=== PATIENT | male | born 1950 | race Caucasian/White ===

== ENCOUNTER 2021-03-27 12:42 | Emergency (ER) | payer MEDICARE, OTHER, SELFPAY ==
--- NOTE | 2021-03-27 12:54 | ED.MALEGU ---
HPI - Male Genitourinary General Chief complaint: Urogenital-Male Stated complaint: Swollen Testicle Source: patient and RN notes reviewed Limitations: no limitations History of Present Illness HPI Narrative: The sexually active patient, elderly and on multiple meds, presents with left testicle pain. Patient states he has a shorter, 1 day history of left testicle pain that is mild, worse with activity or palpation, better with rest or elevation, and located somewhat posteriorly. No fever, lump/mass, frequency/dysuria, skin eruption, N/V, abdominal pain. Related Data Home Medications Medication Instructions Recorded Confirmed acetaminophen 500 mg PO QID PRN 03/27/21 03/27/21 albuterol sulfate [ProAir HFA] 2 puff INHALATION QID 03/27/21 03/27/21 aspirin 81 mg PO DAILY 03/27/21 03/27/21 bupropion HCl 150 mg PO QAM 03/27/21 03/27/21 cholecalciferol (vitamin D3) 125 mcg PO DAILY 03/27/21 03/27/21 cholestyramine (with sugar) 4 g PO DAILY 03/27/21 03/27/21 cilostazol 50 mg PO BID 03/27/21 03/27/21 clopidogrel 75 mg PO DAILY 03/27/21 03/27/21 cyanocobalamin (vitamin B-12) 5,000 mcg PO DAILY 03/27/21 03/27/21 denosumab [Prolia] 60 mg SUBCUT [id number] 03/27/21 03/27/21 fluticasone propionate 1 spray INTRANASAL BID 03/27/21 03/27/21 folic acid 1 mg PO DAILY 03/27/21 03/27/21 levothyroxine [Levoxyl] 175 mcg PO DAILY 03/27/21 03/27/21 lisinopril 10 mg PO DAILY 03/27/21 03/27/21 mesalamine [Asacol HD] 800 mg PO BID 03/27/21 03/27/21 pravastatin 10 mg PO HS 03/27/21 03/27/21 sildenafil [Viagra] 50 mg PO DAILY 03/27/21 03/27/21 sodium bicarbonate 650 mg PO DAILY 03/27/21 03/27/21 triamcinolone acetonide 1 applic TOPICAL BID 03/27/21 03/27/21 vit C,T-Ct-bsxij-lutein-zeaxan 1 tablet PO BID 03/27/21 03/27/21 [PreserVision AREDS-2] Allergies Allergy/AdvReac Type Severity Reaction Status Date / Time No Known Allergies Allergy Verified 03/27/21 13:58 Review of Systems Review of Systems: Narrative: General/Constitutional: No weight loss,fever Eyes: N0: Redness,discharge Ears/Nose/Throat: No: Epistaxis,ear discharge Respiratory: Denies: Hemoptysis Gastrointestinal: No Vomiting, Bleeding-rectal Skin: No Lumps, eruption Neurologic: No Focal Weakness,Sz Hematologic: Denies: Petechiae/Purpura Psychiatric: No: Suicida ideationl All Other Systems: Reviewed and Negative PMFSH Comments At time of signature, agree with nursing past medical, surgical, social and family history. There is no relevant family history pertinent to the presenting complaint Exam Narrative: Exam Narrative: General Appearance: Well appearing, No distress, Conjunctiva clear Ears: External ear normal Nose: Normal nose Mouth/Throat: Normal appearing, Normal lips Supple Respiratory: Airway patent, No respiratory distress Abdomen: Soft, Non-tender, : Nl, nonswollen descended testicles, circumcised phallus, no inguinal hernia palpated, , point tender left posterior epididymal tenderness Skin: Warm, Dry Neurological: A&O x3, CN II-X intact Psychiatric: Normal mood, Normal affect Course Vital Signs Vital signs: Vital Signs Temperature 98.7 F 03/27/21 12:56 Pulse Rate 84 03/27/21 12:56 Respiratory Rate 18 03/27/21 12:56 Blood Pressure 149/74 H 03/27/21 12:56 Pulse Oximetry 99 03/27/21 12:56 Temperature 98.7 F 03/27/21 13:18 Pulse Rate 84 03/27/21 13:18 Respiratory Rate 18 03/27/21 13:18 Blood Pressure 149/74 H 03/27/21 13:18 Pulse Oximetry 99 03/27/21 13:18 MDM - Male Genitourinary Lab Data Labs: Lab Results 03/27/21 Range/Units 13:45 C.trachomatis RNA (TMA) Pending N.gonorrhoeae RNA (TMA) Pending Urine Glucose Negative Reference Range: Negative Urine Bilirubin Negative Reference Range: Negative Urine Ketone Negative
[2021-03-27 12:56] VITALS: BP 149/74; PULSE 84; RESP 18; TEMP 37.1; O2SAT 99
[2021-03-27 13:18] VITALS: BP 149/74; PULSE 84; RESP 18; TEMP 37.1; O2SAT 99
== END 2021-03-27 14:03 | disposition home or self-care (01) ==
PROVIDERS: Emergency Provider Emergency Medicine; PCP Internal Medicine
DX: N45.1 Epididymitis (principal); E78.00 Pure hypercholesterolemia, unspecified; I10 Essential (primary) hypertension; K50.90 Crohn's disease, unspecified, without complications; Z95.5 Presence of coronary angioplasty implant and graft
CPT/HCPCS: 81003; 87086; 87491; 87591; 99203; G0463

== ENCOUNTER 2021-08-11 11:26 | Emergency (ER) | payer MEDICARE, OTHER, SELFPAY ==
[2021-08-11 12:17] VITALS: BP 141/89; PULSE 94; RESP 20; TEMP 37.1; O2SAT 99
--- NOTE | 2021-08-11 13:22 | ED.WOUNDLAC ---
HPI - Wound/Laceration General Chief Complaint: Wound/Laceration Stated Complaint: cut left elbow Time Seen by Provider: 08/11/21 13:22 Source: patient Mode of arrival: ambulatory Limitations: no limitations History of Present Illness HPI narrative: Julius Andrade is a 70 yo male with a PMH of HTN, hypothyroid,Crohns, stents, chronic and coagulation, comes to [facility] with a skin tear on his left elbow from hitting his arm on the car door at the gas station. He is on anti- coagulation was bleeding profusely Related Data Home Medications Medication Instructions Recorded Confirmed acetaminophen 500 mg PO QID PRN 03/27/21 08/11/21 albuterol sulfate [ProAir HFA] 2 puff INHALATION QID 03/27/21 08/11/21 aspirin 81 mg PO DAILY 03/27/21 08/11/21 bupropion HCl 150 mg PO QAM 03/27/21 08/11/21 cholecalciferol (vitamin D3) 125 mcg PO DAILY 03/27/21 08/11/21 cholestyramine (with sugar) 4 g PO DAILY 03/27/21 08/11/21 cilostazol 50 mg PO BID 03/27/21 08/11/21 clopidogrel 75 mg PO DAILY 03/27/21 08/11/21 cyanocobalamin (vitamin B-12) 5,000 mcg PO DAILY 03/27/21 08/11/21 denosumab [Prolia] 60 mg SUBCUT [id number] 03/27/21 08/11/21 fluticasone propionate 1 spray INTRANASAL BID 03/27/21 08/11/21 folic acid 1 mg PO DAILY 03/27/21 08/11/21 levothyroxine [Levoxyl] 175 mcg PO DAILY 03/27/21 08/11/21 lisinopril 10 mg PO DAILY 03/27/21 08/11/21 mesalamine [Asacol HD] 800 mg PO BID 03/27/21 08/11/21 pravastatin 10 mg PO HS 03/27/21 08/11/21 sildenafil [Viagra] 50 mg PO DAILY 03/27/21 08/11/21 sodium bicarbonate 650 mg PO DAILY 03/27/21 08/11/21 triamcinolone acetonide 1 applic TOPICAL BID 03/27/21 08/11/21 vit C,P-Vx-uvcbj-lutein-zeaxan 1 tablet PO BID 03/27/21 08/11/21 [PreserVision AREDS-2] Allergies Allergy/AdvReac Type Severity Reaction Status Date / Time No Known Allergies Allergy Verified 08/11/21 12:43 Review of Systems Review of Systems: CONSTITUTIONAL: Denies fever, chills, sweats. EYES: Denies visual changes, redness, discharge. ENT: Denies rhinorrhea, congestion, sore throat, otalgia. CARDIOVASCULAR: Denies chest pain, palpitations, edema. RESPIRATORY: Denies dyspnea, wheezing, cough GASTROINTESTINAL: Denies abdominal pain, nausea, vomiting, diarrhea. GENITOURINARY: Denies dysuria, hematuria, abnormal discharge SKIN: Denies rash or itching. NEUROLOGIC: Denies numbness, or focal weakness. PSYCHIATRIC: Denies anxiety or depression. Bleeding from left elbow PMFSH Past Medical History Medical History Chronic anticoagulation Crohn's disease High cholesterol Hypertension Surgical History Surgical History H/O heart artery stent Social History Social History (Updated 08/11/21 @ 13:30 by Sienna De Jesus CNP) Smoking status: Never smoker Alcohol intake: never Comments At time of signature, I agree with nursing past medical, surgical, social and family history. There is no relevant family history pertinent to the presenting complaint. Exam Narrative: GENERAL: This is a well-nourished, well-developed patient, in mild distress. HEAD: normocephalic, atraumatic. EYES: Sclera clear/white. Vision is grossly intact. EARS: External ears normal, . Hearing grossly intact. NOSE: External nose normal without nasal discharge, nares without redness, no rhinorrhea. THROAT: Mucous membranes moist, NECK: Neck supple, CARDIOVASCULAR: Regular rate and rhythm without murmurs, gallops, or rubs. RESPIRATORY: Clear to auscultation. Breath sounds equal bilaterally. No wheezes, rales, or rhonchi. GASTROINTESTINAL: Abdomen soft, er, SKIN: warm, intact with skin tear to left elbow of 2.4 area that scrolled back and is bleeding NEURO: awake, alert, and oriented to person, place and time. There were no obvious focal neurologic abnormalities. Steady gait EXTREMITIES: Normal range of motion. BACK: Nontender without deformity
== END 2021-08-11 13:25 | disposition home or self-care (01) ==
PROVIDERS: Emergency Provider Nurse Practitioner
DX: S51.012A Laceration without foreign body of left elbow, initial encounter (principal); W22.8XXA Striking against or struck by other objects, initial encounter; K50.90 Crohn's disease, unspecified, without complications; E78.00 Pure hypercholesterolemia, unspecified; I10 Essential (primary) hypertension; Z95.5 Presence of coronary angioplasty implant and graft
CPT/HCPCS: 99212; G0463

== ENCOUNTER 2021-11-15 17:01 | Emergency (ER) | payer MEDICARE, OTHER, SELFPAY ==
--- NOTE | ~2021-11-15 | XR_ITS ---
EXAMINATION: XR chest 1V portable DATE: 11/15/2021 20:54 INDICATION: Hypertension. Fall. TECHNIQUE: A single frontal view of the chest was obtained. COMPARISON: None. FINDINGS: The chest demonstrates clear lungs without pneumonia, pleural effusion, or pneumothorax. Th e heart size is normal. IMPRESSION: 1. No acute cardiopulmonary disease. Reviewed, dictated and finalized at location A. CARPENTER
--- NOTE | ~2021-11-15 | XR_ITS ---
EXAMINATION: 1. XR wrist LT min 3V 2. XR hand LT min 3V DATE: 11/15/2021 20:28 INDICATION: Left wrist injury and pain. TECHNIQUE: 5 views of left wrist and 3 views of left hand were obtained. COMPARISON: None. FINDINGS: LEFT WRIST: Scapholunate dissociation is noted. There is dorsal tilt of lunate, consistent with dors al intercalated segmental instability (DISI). There is severe osteoarthritis of triscaphe joint and f irst carpometacarpal joint. There are loose bodies in the wrist. LEFT HAND: Again seen is scapholunate dissociation and dorsal tilt of lunate. There is a swan-neck de formity of fourth digit. No fracture. There is mild osteoarthritis of first and third metacarpophalan geal joints. There is mild to moderate osteoarthritis of most of the interphalangeal joints. There ar e periarticular calcifications at most of the metacarpophalangeal joints. IMPRESSION: 1. Polyarticular osteoarthritis. 2. Loose bodies in the wrist. 3. Scapholunate dissociation. 4. DISI. Reviewed, dictated and finalized at location A. UCT TEST ENGINEER IMPRESSION: 1. Polyarticular osteoarthritis. 2. Loose bodies in the wrist. 3. Scapholunate dissociation. 4. DISI.
--- NOTE | ~2021-11-15 | CT_ITS ---
EXAMINATION: CT brain wo con DATE: 11/15/2021 20:22 INDICATION: Head injury. TECHNIQUE: Computed tomography (CT) of the head was performed without intravenous contrast. The mA wa s adjusted according to patient size. Iterative reconstruction technique was employed. The dose-lengt h product was 605.33 mGy-cm. COMPARISON: None FINDINGS: There is no intracranial hemorrhage, acute infarction, or abnormal intracranial mass lesion . There are scattered areas of low attenuation in the cerebral white matter. The ventricles are taj l in size. There are likely changes of ocular lens replacement surgeries. There is mild mucosal thick ening in the ethmoid sinuses. There is a small right mastoid effusion. IMPRESSION: 1. Extensive nonspecific cerebral white matter disease, which likely represents chronic small vessel ischemic disease. Reviewed, dictated and finalized at location A. CARE AIDE TEACHER
--- NOTE | ~2021-11-15 | CT_ITS ---
EXAMINATION: CT cervical spine wo con DATE: 11/15/2021 20:22 INDICATION: Head injury. TECHNIQUE: Computed tomography (CT) of the cervical spine was performed without intravenous contrast. Automated exposure control and iterative reconstruction technique were employed. The dose-length pro duct was 178.55 mGy-cm. COMPARISON: None FINDINGS: There is mild emphysema. 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 There is 16 degr ees dextroscoliosis of cervical spine. There is 3 mm anterolisthesis of C4 on C5 and 5 mm anterolisth esis of C5 on C6. Vertebral body heights are normal. There is mildly decreased disc height at C3-C4 a nd C4-C5 and moderately decreased disc height at C5-C6. The following disc levels are specifically di scussed: C2-C3: There is moderate right uncovertebral joint osteoarthritis. There is severe bilateral facet minal int osteoarthritis. There is mild bilateral neural foraminal stenosis. There is mild central canal st enosis. C3-C4: There is severe left uncovertebral joint osteoarthritis. There is severe bilateral facet joint osteoarthritis. There is mild bilateral neural foraminal stenosis. There is no central canal stenosi s. C4-C5: There is mild left uncovertebral joint osteoarthritis. There is mild right and severe left fac et joint osteoarthritis. There is moderate left neural foraminal stenosis. There is no central canal stenosis. C5-C6: There is no uncovertebral joint osteoarthritis. There is severe bilateral facet joint osteoart hritis. There is moderate bilateral neural foraminal stenosis. There is mild central canal stenosis. C6-C7: There is no uncovertebral joint osteoarthritis. There is severe bilateral facet joint osteoart hritis. There is mild left neural foraminal stenosis. There is no central canal stenosis. C7-T1: There is no uncovertebral joint osteoarthritis. There is severe bilateral facet joint osteoart hritis. There is mild bilateral neural foraminal stenosis. There is no central canal stenosis. IMPRESSION: 1. No fracture. 2. Moderate cervical spondylosis. 3. Cervical dextroscoliosis. Reviewed, dictated and finalized at location A. MACHINE OPERATOR
[2021-11-15 17:33] VITALS: BP 166/79; PULSE 81; RESP 16; TEMP 37; O2SAT 99
[2021-11-15 21:16] VITALS: BP 148/89; PULSE 72; RESP 20; O2SAT 99
--- NOTE | 2021-11-15 21:34 | ED.FALL ---
HPI - Fall General Chief Complaint: Fall Stated Complaint: fall Time Seen by Provider: 11/15/21 20:57 Source: patient and RN notes reviewed Mode of arrival: EMS Limitations: no limitations History of Present Illness HPI Narrative: This is a 70 year old male who presents for evaluation after a fall. Patient states he accidentally tripped over a cord at home, and he fell hitting his head. He denies having LOC or headache. He takes aspirin and plavix. He denies neck pain, chest pain, dizziness, nausea, vomiting or hand or wrist pain. He is unsure of his last tetanus. Related Data Home Medications Medication Instructions Recorded Confirmed acetaminophen 500 mg PO QID PRN 03/27/21 08/11/21 albuterol sulfate [ProAir HFA] 2 puff INHALATION QID 03/27/21 08/11/21 aspirin 81 mg PO DAILY 03/27/21 08/11/21 bupropion HCl 150 mg PO QAM 03/27/21 08/11/21 cholecalciferol (vitamin D3) 125 mcg PO DAILY 03/27/21 08/11/21 cholestyramine (with sugar) 4 g PO DAILY 03/27/21 08/11/21 cilostazol 50 mg PO BID 03/27/21 08/11/21 clopidogrel 75 mg PO DAILY 03/27/21 08/11/21 cyanocobalamin (vitamin B-12) 5,000 mcg PO DAILY 03/27/21 08/11/21 denosumab [Prolia] 60 mg SUBCUT [id number] 03/27/21 08/11/21 fluticasone propionate 1 spray INTRANASAL BID 03/27/21 08/11/21 folic acid 1 mg PO DAILY 03/27/21 08/11/21 levothyroxine [Levoxyl] 175 mcg PO DAILY 03/27/21 08/11/21 lisinopril 10 mg PO DAILY 03/27/21 08/11/21 mesalamine [Asacol HD] 800 mg PO BID 03/27/21 08/11/21 pravastatin 10 mg PO HS 03/27/21 08/11/21 sildenafil [Viagra] 50 mg PO DAILY 03/27/21 08/11/21 sodium bicarbonate 650 mg PO DAILY 03/27/21 08/11/21 triamcinolone acetonide 1 applic TOPICAL BID 03/27/21 08/11/21 vit C,J-Ml-nfmjw-lutein-zeaxan 1 tablet PO BID 03/27/21 08/11/21 [PreserVision AREDS-2] Allergies Allergy/AdvReac Type Severity Reaction Status Date / Time No Known Allergies Allergy Verified 11/15/21 21:19 Review of Systems Review of Systems: All systems reviewed & are unremarkable except as noted in HPI and below PMFSH Past Medical History Medical History Chronic anticoagulation Crohn's disease High cholesterol Hypertension Surgical History Surgical History H/O heart artery stent Social History Social History (Updated 08/11/21 @ 13:30 by Sienna De Jesus CNP) Smoking status: Never smoker Alcohol intake: never Exam Const: General: no acute distress and alert Orientation/consciousness: patient oriented x3 HENMT: Head: normocephalic and other (superficial linear vertical laceration mid forehead) General nose exam: Normal external nose present Face and sinus: face symmetric Mouth: Yes lip normal and Yes moist mucous membranes Eyes: EOM: EOMs intact bilaterally Chest: Chest palpation & inspection: normal inspection of the chest and no tenderness Resp: Effort & Inspection: normal respiratory effort Auscultation: clear to auscultation bilaterally Cardio: Rate: regular rate Rhythm: regular rhythm Heart sounds: no murmurs GI: GI Palp: Yes Soft to palpation, No Tenderness to palpation present (GI) and No Guarding due to palpation present (GI) Auscultation: normal bowel sounds Neuro: General: patient oriented x3, moves all extremities and CN's II-XI intact bilaterally Gait exam (Neuro): Normal gait present Extrem: Other: left hand no bruising or swelling, no tenderness Psych: Mental Status: mental status grossly normal Affect: normal affect Course Reevaluation(s) Reevaluation #1: I reviewed with patient xray findings. no fracture but has significant arthritis and scapholunate disocciation. he is not having any pain. Date: 11/15/21 Time: 22:06 Vital Signs Vital signs: Vital Signs Temperature 98.6 F 11/15/21 17:33 Pulse Rate 81 11/15/21 17:33 Respiratory Rate 16 11/15/21 17:33 Blood Pressure 166/79 H 11/15/21 17:33 P
[2021-11-15 22:53] VITALS: BP 152/81; PULSE 75; RESP 20; O2SAT 98
[2021-11-15] MEDS: TETANUS,DIPHTHERIA,AC PERTUSSIS ADULT (0.5 ML) BOOSTRIX IM (23:07)
== END 2021-11-15 23:36 | disposition home or self-care (01) ==
PROVIDERS: Emergency Provider General Practice; PCP Internal Medicine
DX: S01.81XA Laceration without foreign body of other part of head, initial encounter (principal); M19.032 Primary osteoarthritis, left wrist; M25.332 Other instability, left wrist; I10 Essential (primary) hypertension; E78.5 Hyperlipidemia, unspecified; K50.90 Crohn's disease, unspecified, without complications; W01.0XXA Fall on same level from slipping, tripping and stumbling without subsequent striking against object, initial encounter; Z23 Encounter for immunization
CPT/HCPCS: 12013; 70450; 71045; 72125; 73110; 73130; 90471; 90715; 99284

== ENCOUNTER 2023-02-03 17:41 | Emergency (ER) | payer MEDICARE, OTHER, SELFPAY ==
--- NOTE | ~2023-02-03 | XR_ITS ---
EXAM: XR foot RT min 3V DATE: 02/03/2023 18:05 HISTORY: injury, CUT BETWEEN 4TH AND 5TH DIGIT . COMPARISON: None. FINDINGS: Decreased mineralization. Tiny ossific density fragment adjacent to the proximal and later al aspect of the proximal right fourth phalange. No lytic or blastic lesion. Scattered degenerative c hanges. Toes are held in flexion which somewhat limits evaluation. No erosion or periosteal change. V ascular calcifications. IMPRESSION: Tiny ossific density fragment adjacent to the proximal and lateral aspect of the proximal right fourth phalange, may represent a small bone fragment or soft tissue debris. Reviewed, dictated and finalized at location K. IMPRESSION: Tiny ossific density fragment adjacent to the proximal and lateral aspect of the proximal right fourth phalange, may represent a small bone fragme nt or soft tissue debris.
[2023-02-03 17:43] VITALS: BP 150/82; PULSE 88; RESP 15; TEMP 37.2; O2SAT 98
--- NOTE | 2023-02-03 19:05 | ED.LOWEXIN ---
HPI - Extremity Injury (Lower) General Chief Complaint: Extremity Injury, Lower <Linn Tubbs PA-C - Last Filed: 02/04/23 02:26> Stated Complaint: right foot injury <Linn Tubbs PA-C - Last Filed: 02/04/23 02:26> Time Seen by Provider: 02/03/23 18:51 <Linn Tubbs PA-C - Last Filed: 02/04/23 02:26> History of Present Illness HPI Narrative: 72-year-old male reports for evaluation of a right foot injury after shower door fell patient's right foot 2 hours prior to arrival while he was getting out of the bathtub. Pt reporting pain to his R 4th toe with overlying abrasion/laceration. Patient is able to ambulate. He is not sure when his last tetanus shot was. <Linn Tubbs PA-C - Last Filed: 02/04/23 02:26> Related Data Home Medications: Home Medications Medication Instructions Recorded Confirmed acetaminophen 500 mg tablet 500 mg PO QID PRN Pain 03/27/21 08/11/21 albuterol sulfate 90 mcg/actuation 2 puff inhalation QID 03/27/21 08/11/21 aerosol inhaler (ProAir HFA) aspirin 81 mg tablet 81 mg PO DAILY 03/27/21 08/11/21 bupropion HCl 150 mg 24 hr tablet, 150 mg PO QAM 03/27/21 08/11/21 extended release cholecalciferol (vitamin D3) 125 125 mcg PO DAILY 03/27/21 08/11/21 mcg (5,000 unit) tablet cholestyramine (with sugar) 4 gram 4 g PO DAILY 03/27/21 08/11/21 oral powder cilostazol 50 mg tablet 50 mg PO BID 03/27/21 08/11/21 clopidogrel 75 mg tablet 75 mg PO DAILY 03/27/21 08/11/21 cyanocobalamin (vitamin B-12) 5,000 mcg PO DAILY 03/27/21 08/11/21 5,000 mcg disintegrating tablet denosumab 60 mg/mL subcutaneous 60 mg subcut [id number] 03/27/21 08/11/21 syringe (Prolia) fluticasone propionate 50 1 spray intranasal BID 03/27/21 08/11/21 mcg/actuation nasal spray,suspension folic acid 1 mg tablet 1 mg PO DAILY 03/27/21 08/11/21 levothyroxine 175 mcg tablet 175 mcg PO DAILY 03/27/21 08/11/21 (Levoxyl) lisinopril 10 mg tablet 10 mg PO DAILY 03/27/21 08/11/21 mesalamine 800 mg tablet,delayed 800 mg PO BID 03/27/21 08/11/21 release (Asacol HD) pravastatin 10 mg tablet 10 mg PO HS 03/27/21 08/11/21 sildenafil 50 mg tablet (Viagra) 50 mg PO DAILY 03/27/21 08/11/21 sodium bicarbonate 650 mg tablet 650 mg PO DAILY 03/27/21 08/11/21 triamcinolone acetonide 0.1 % 1 applic topical BID 03/27/21 08/11/21 topical cream vit C 250 mg-vit E 90 mg-zinc 40 1 tablet PO BID 03/27/21 08/11/21 mg-copper 1 [id number] capsule (PreserVision AREDS-2) <Linn Tubbs PA-C - Last Filed: 02/04/23 02:26> Allergies/Adverse Reactions: Allergies Allergy/AdvReac Type Severity Reaction Status Date / Time No Known Allergies Allergy Verified 11/15/21 21:19 <Linn Tubbs PA-C - Last Filed: 02/04/23 02:26> Review of Systems Review of Systems: CONSTITUTIONAL: Denies fever, chills EYES: Denies visual changes, redness, or discharge. ENT: Denies rhinorrhea, congestion, sore throat, or otalgia. CARDIOVASCULAR: Denies chest pain, palpitations, or edema. RESPIRATORY: Denies cough or dyspnea. GASTROINTESTINAL: Denies abdominal pain, nausea, vomiting, or diarrhea. GENITOURINARY: Denies dysuria or hematuria. SKIN: Denies rash or itching. MUSCULOSKELETAL: See HPI NEUROLOGIC: Denies headache, numbness, dizziness, or weakness. PSYCHIATRIC: Denies anxiety or depression. <Linn Tubbs PA-C - Last Filed: 02/04/23 02:26> PMFSH Past Medical History Medical History: Medical History Chronic anticoagulation Crohn's disease High cholesterol Hypertension <Linn Tubbs PA-C - Last Filed: 02/04/23 02:26> Surgical History Surgical History: Surgical History H/O heart artery stent <Linn Tubbs PA-C - Last Filed: 02/04/23 02:26> Social History Social History: Social History (Reviewed 02/03/23 @ 19:07 by Linn Tubbs
[2023-02-03] MEDS: NEOMYCIN/POLYMYXIN/BACITRACIN OINTMENT PACKET 1 PACKET TOPICAL (19:24)
[2023-02-03] MEDS: TETANUS,DIPHTHERIA,AC PERTUSSIS ADULT (0.5 ML) BOOSTRIX IM (19:24)
[2023-02-03] MEDS: ACETAMINOPHEN 325 MG TABLET 650 MG PO (19:24)
== END 2023-02-03 20:32 | disposition home or self-care (01) ==
PROVIDERS: Emergency Provider Physician Assistant; PCP Internal Medicine
DX: S92.514B Nondisplaced fracture of proximal phalanx of right lesser toe(s), initial encounter for open fracture (principal); Z23 Encounter for immunization; E78.00 Pure hypercholesterolemia, unspecified; I10 Essential (primary) hypertension; K50.90 Crohn's disease, unspecified, without complications; Z95.5 Presence of coronary angioplasty implant and graft; Z79.82 Long term (current) use of aspirin; W20.8XXA Other cause of strike by thrown, projected or falling object, initial encounter
CPT/HCPCS: 12001; 73630; 90471; 90715; 99283; 99284; A9270

== ENCOUNTER 2023-07-28 10:05 | Emergency (ER) | payer MEDICARE, OTHER, SELFPAY ==
[2023-07-28 10:15] VITALS: BP 157/72; PULSE 90; RESP 20; TEMP 37.2; O2SAT 98
--- NOTE | 2023-07-28 10:25 | ED.GENADULT ---
HPI - General Adult General Chief complaint: Back Pain/Injury Stated complaint: Left Shoulder Pain Time Seen by Provider: 07/28/23 10:28 Source: patient, RN notes reviewed and old records reviewed Mode of arrival: ambulatory Limitations: no limitations History of Present Illness HPI narrative: 72 year old male presents to [facility] care with complaints of left posterior upper scapular painful area which he noted last night. He also had raised firm nodule to his left hand near his thumb which is 1cm diameter and fibrous feeling, patient has some deformity of his fingers from polyarticular osteoarthritis noted on previous x-rays. Patient reports that he has no complaints of recent fall or any injury to his left posterior upper back region, has full ROM noted of his left shoulder without pain. On palpation of left scapular area soft tissue nodule noted to left scapula which is tender to palpation, not mobile and without any redness or inflammation to area. MD complaint: pain to left sapular area,firm nodule on left hand near thumb Onset (ago): day(s) (1) Location: back (left scapular area, left hand) Radiation: non-radiation Severity: moderate Treatments prior to arrival: none Related Data Home Medications Medication Instructions Recorded Confirmed acetaminophen 500 mg tablet 500 mg PO QID PRN Pain 03/27/21 07/28/23 albuterol sulfate 90 mcg/actuation 2 puff inhalation QID 03/27/21 07/28/23 aerosol inhaler (ProAir HFA) aspirin 81 mg tablet 81 mg PO DAILY 03/27/21 07/28/23 bupropion HCl 150 mg 24 hr tablet, 150 mg PO QAM 03/27/21 07/28/23 extended release cholecalciferol (vitamin D3) 125 125 mcg PO DAILY 03/27/21 07/28/23 mcg (5,000 unit) tablet cholestyramine (with sugar) 4 gram 4 g PO DAILY 03/27/21 07/28/23 oral powder cilostazol 50 mg tablet 50 mg PO BID 03/27/21 07/28/23 clopidogrel 75 mg tablet 75 mg PO DAILY 03/27/21 07/28/23 cyanocobalamin (vitamin B-12) 5,000 mcg PO DAILY 03/27/21 07/28/23 5,000 mcg disintegrating tablet denosumab 60 mg/mL subcutaneous 60 mg subcut [id number] 03/27/21 07/28/23 syringe (Prolia) fluticasone propionate 50 1 spray intranasal BID 03/27/21 07/28/23 mcg/actuation nasal spray,suspension folic acid 1 mg tablet 1 mg PO DAILY 03/27/21 07/28/23 levothyroxine 175 mcg tablet 175 mcg PO DAILY 03/27/21 07/28/23 (Levoxyl) mesalamine 800 mg tablet,delayed 800 mg PO BID 03/27/21 07/28/23 release (Asacol HD) pravastatin 10 mg tablet 10 mg PO HS 03/27/21 07/28/23 sildenafil 50 mg tablet (Viagra) 50 mg PO DAILY 03/27/21 07/28/23 sodium bicarbonate 650 mg tablet 650 mg PO DAILY 03/27/21 07/28/23 triamcinolone acetonide 0.1 % 1 applic topical BID 03/27/21 07/28/23 topical cream vit C 250 mg-vit E 90 mg-zinc 40 1 tablet PO BID 03/27/21 07/28/23 mg-copper 1 [id number] capsule (PreserVision AREDS-2) carvedilol 3.125 mg tablet mg 07/28/23 pantoprazole 20 mg tablet,delayed mg PO 07/28/23 release Allergies Allergy/AdvReac Type Severity Reaction Status Date / Time No Known Allergies Allergy Verified 07/28/23 10:08 Review of Systems Review of Systems: CONSTITUTIONAL: Denies fever, chills, or sweats. EYES: Denies visual changes, redness, or discharge. ENT: Denies rhinorrhea, congestion, sore throat, or otalgia. CARDIOVASCULAR: Denies chest pain, palpitations, or edema. RESPIRATORY: Denies cough or dyspnea. GASTROINTESTINAL: Denies abdominal pain, nausea, vomiting, or diarrhea. GENITOURINARY: Denies dysuria or hematuria. SKIN: Denies rash or itching. MUSCULOSKELETAL: Denies back pain, joint pain, or myalgia reports painful area to his posterior left scapular region. and nodular area to his left hand near thumb NEUROLOGIC: Denies headache, numbness, or weakness. PSYCHIATRIC: Denies anxiety or depression. All systems reviewed & are unremarkable except as noted in HPI and below PMFSH Past Medical History Medical History (Updated 07/30/23 @ 08:15 by Ronna Vela NP)
== END 2023-07-28 11:08 | disposition home or self-care (01) ==
PROVIDERS: Emergency Provider Registered Nurse; PCP Internal Medicine
DX: R22.32 Localized swelling, mass and lump, left upper limb (principal); M54.9 Dorsalgia, unspecified; I10 Essential (primary) hypertension; E78.00 Pure hypercholesterolemia, unspecified; Z79.82 Long term (current) use of aspirin; K50.90 Crohn's disease, unspecified, without complications
CPT/HCPCS: 99213; G0463

== ENCOUNTER 2024-05-29 13:31 | Outpatient (CLI) | payer MEDICARE, OTHER, SELFPAY ==
--- NOTE | ~2024-05-29 | XR_ITS ---
EXAMINATION: [id number] DATE: 05/29/2024 13:49 INDICATION: Pleurodynia. TECHNIQUE: A frontal view of the chest and 2 views on 3 radiographs of the right ribs were obtained. COMPARISON: Chest single view 11/15/2021 FINDINGS: There is no pneumonia, pleural effusion, or pneumothorax. The heart size is normal. IMPRESSION: 1. No rib fracture. Reviewed, dictated and finalized at location A. IMPRESSION: 1. No rib fracture.
== END 2024-05-29 13:32 ==
PROVIDERS: PCP Internal Medicine; Visit Provider Internal Medicine
DX: R07.81 Pleurodynia (principal)
CPT/HCPCS: 71101

== ENCOUNTER 2024-10-20 08:46 | Outpatient (CLI) | payer MEDICARE, OTHER, SELFPAY ==
--- NOTE | ~2024-10-20 | XR_ITS ---
HISTORY: PAIN IN RT HIP COMPARISON: TECHNIQUE: 2 views of the right hip without an AP view of the pelvis FINDINGS: No acute fracture or dislocation is identified. Superior lateral sclerosis of the femoral acetabular joint space is present consistent with severe os teoarthritis. Cortical irregularity of the right femoral neck without a discrete fracture deformity. Diffuse bony demineralization. Calcified atherosclerotic disease. IMPRESSION: Severe degenerative disease, without acute displaced fracture deformity for which cross-sectional shawn ging (noncontrast enhanced CT examination of the right hip versus MRI) is suggested for further evalu ation, if the patient is clinically able. Reviewed, dictated and finalized at location A. COPTER ENGINEER IMPRESSION: Severe degenerative disease, without acute displaced fracture deformity for whi ch cross-sectional imaging (noncontrast enhanced CT examination of the right hi p versus MRI) is suggested for further evaluation, if the patient is clinically able.
--- OUTSIDE RECORDS SUMMARY | 2024-10-27 10:45 | XMS_ITS ---
Author Name [facility] [place] [facility] [place] [facility] [place] Address [address] [place] [address] Support Name Relationship Address Phone MAYRA JON Next of Kin [address] [place] [address] MAYRA JON Emergency Contact [address] [place] [address] ALONDRACHAMP BRANDY Next of Kin Unknown Selected Encounter This section includes the information on record at [place] for the Encounter. Date/Time Encounter Type Encounter Description Reason Pro vider Source May 29, 2024 12:01 PM Outpatient Encounter ADMIN PAT ACTIVTIES (MASNONCT) IHE Encounter Template Text not used by [facility] Encounter Notes: All associated encounter notes This section contains the clinical notes associated to the Encounter. Date/Time Encounter Note(s) Provider Source Jun 01, 2024 08:50 AM ADDENDUM: LOCAL TITLE: Addendum STANDARD TITLE: ADDENDUM DATE OF NOTE: JUN 01, 2024@08:50:33 ENTRY DATE: JUN 01, 2024@08:50:35 AUTHOR: ROBER MCBRIDEIGNER: URGENCY: STATUS: COMPLETED Per chart review [facility] is not enrolled at this [place]. [facility] will need to direct inquiry to VA provider once enrolled and completing scheduled appointment. Alerting original point of contact as there has been no other contact with this [facility]. /santosh/ TIFFANIE Colon, SOLDERING TECHNICIAN Clinical General Dentist/Owner Signed: 06/01/2024 08:52 Receipt Acknowledged By: 06/04/2024 08:30 /santosh/ ATUL CARBAJAL AMSA --- Original Document --- 05/29/24 CCC: SCHEDULING ADMINISTRATION: Patient Demographics Patient Name: RACHELE ROSADO Patient Primary Phone: [phone] Patient Primary Address: [address] [place] [address] Patient : 1950 Patient Age: 73 Caller/Recipient Relation to Patient: Self Administrative Administrative Note Comments: allowed his non Adrián speak on his behalf today on 05/29/2024. Adrián states that he would like someone to give a call regarding some in home care for the . Please call Adrián at [phone]. /es/ ATUL BRITO AMSA Signed: 05/29/2024 11:01 AMITA MCBRIDE [facility] May 29, 2024 11:01 AM ADMINISTRATIVE NOT E: LOCAL TITLE: CCC: SCHEDULING ADMINISTRATION STANDARD TITLE: ADMINISTRATIVE NOTE DATE OF NOTE: MAY 29, 2024@11:01:49 ENTRY DATE: MAY 29, 2024@11:01:49 AUTHOR: ATUL SINGH EXP COSIGNER: URGENCY: STATUS: COMPLETED CCC: SCHEDULING ADMINISTRATION Has ADDENDA Patient Demographics Patient Name: RACHELE ROSADO Patient Primary Phone: [phone] Patient Primary [address]: [address] [place] [id number] Patient : 1950 Patient Age: 73 Caller/Recipient Relation to Patient: Self Administrative Administrative Note Comments: [facility] allowed his non Adrián speak on his behalf today on 05/29/2024. Adrián states that he would like someone to give a call regarding some in home care for the . Please call Adrián at [phone]. /es/ ATUL BRITO AMSA Signed: 05/29/2024 11:01 06/01/2024 ADDENDUM STATUS: COMPLETED Per chart review [facility] is not enrolled at this [place]. [facility] will need to direct inquiry to VA provider once enrolled and completing scheduled appointment. Alerting original point of contact as there has been no other contact with this [facility]. /santosh/ TIFFANIE Colon, SOLDERING TECHNICIAN Clinical General Dentist/Owner Signed: 06/01/2024 08:52 Receipt Acknowledged By: * AWAITING SIGNATURE * ATUL SINGH LAKEYSHA RENEE MARION [facility]
--- OUTSIDE RECORDS SUMMARY | 2024-10-27 10:45 | XMS_ITS | Encounter Summary ---
Author Name [facility] [place] [facility] [facility] [place] Address [address] [place] [address] Support Name Relationship Address Phone MAYRA JON Next of Kin [address] [place], [place] [phone] MAYRA JON Emergency Contact [address] [place], [place] [phone] ALONDRACHAMP BRANDY Next of Kin Unknown Selected Encounter This section includes the information on record at [place] for the Encounter. Date/Time Encounter Type Encounter Description Reason Pro vider Source Sep 10, 2024 05:33 PM Outpatient Encounter ADMIN PAT ACTIVTIES (MASNONCT) IHE Encounter Template Text not used by [place] Social History: Smoking Status (Most current) and Tobacco Use (All prior to encounter date) This section includes the most current, and the historical, smoking and tobacco- related health factors from the [place] facility where the Encounter took place. Current Smoking Status This section includes the most current smoking, or tobacco-related health factor, from the [place] facility where the Encounter took place. Date/Time Current Smoking Status Comment Mendy perez Apr 08, 2015 01:01 PM CURRENT TOBACCO USER [facility] Tobacco Use History This section includes a history of the smoking, or tobacco-related health factors, that were collected on or before the date of the Encounter. The data comes from the [place] facility where the Encounter took place. Date/Time Smoking Status/Tobacco Use Comment Kay munguia Apr 08, 2015 01:01 PM TOBACCO MEDS OFFER ED BUT DECLINED [facility] Encounter Notes: All associated encounter notes This section contains the clinical notes associated to the Encounter. Date/Time Encounter Note(s) Provider Source Sep 10, 2024 05:33 PM ADMINISTRATIVE NOT E: LOCAL TITLE: SCHEDULING NOTE [facility] STANDARD TITLE: ADMINISTRATIVE NOTE DATE OF NOTE: SEP 10, 2024@17:33 ENTRY DATE: SEP 10, 2024@17:33:59 AUTHOR: KRISTOPHER MILLERIGNER: URGENCY: STATUS: COMPLETED Additional comments: Called to offer PCP appt. Contact Letter Sent ADDITIONAL RESULTS FROM SCHEDULING ATTEMPTS: /santosh/ KRISTOPHER MILLER Advanced Production Recorder, PTSD DIANNA 58 Signed: 09/10/2024 17:34 KRISTOPHER MILLER [facility] Sep 10, 2024 05:33 PM PRIMARY CARE CALLUM RS: LOCAL TITLE: PC NEW PATIENT NO CONTACT LETTER STL STANDARD TITLE: PRIMARY CARE LETTERS DATE OF NOTE: SEP 10, 2024@17:33 ENTRY DATE: SEP 10, 2024@17:33:16 AUTHOR: KRISTOPHER MILLERIGNER: URGENCY: STATUS: COMPLETED [facility] [address] [place] [address] SEP 10, 2024 JULIUS [address]RADE [address] [place] [address] Dear Julius Andrade, Thank you for your interest in establishing care with a Primary Care Provider at the [facility]. Your Primary Care Provider is the clinical leader of your Patient Aligned Care Team (PACT). Your PACT Team manages and coordinates your comprehensive health care services. Primary Care includes, but is not limited to: diagnosis and management of acute and chronic health conditions, health promotion, disease prevention, overall care management, post-deployment care, and patient and caregiver education. If you would like more information, please visit [email or web address]. We have been unsuccessful in our attempts to contact you to schedule your initial appointment. Based on your current residence, the clinic recommended for your primary care needs is: [facility] [address] [place] [address] We are happy to accommodate your request with another clinic, if needed. Please call to schedule your initial appointment. Thank you for your service, and we look forward to hearing from you. Sincerely, KRISTOPHER MILLER Advanced Production Recorder, PTSD DINANA 58 ASHLEE,JULIUS MILLER,KRISTOPHER Romero [facility]
--- OUTSIDE RECORDS SUMMARY | 2024-10-27 10:45 | XMS_ITS | Continuity of Care Document ---
Author Name [facility] Organization [facility] Care Team Providers Care Renal Dialysis Rn Name Role Phone [facility] Unavailable Unavailable Problems Combined list of problems from Department [facility] and [facility] facilities. It does not include entries that were removed or entered in error. Problem Status Onset Date Problem Type Date of Resolution Comments Source Chronic obstructive lung disease Active Condition [facility] Crohn's disease Active Condition [facility] Essential hypertension Active Condition [facility] Hyperlipidemia Active Condition . [facility] Underweight Active Condition [facility] Medications Combined list of outpatient medications from Department [facility] and [facility] facilities.Medications provided include 1) outpatient medications from the last 15 months, and 2) patient-reported medications. Medication Details Route Status Patient Instructions Prescription Expires Prescription Number Last Dispense Date Ordering Provider Order Date Order Qty Source BUPROPION XL (bupropion HCl), 150 MG, TAB ER 24H, ORAL, LUPIN PHARMACEU, 90 ea. BOTTLE Active [id number] 4 2023 90 Pharmac y Data Transac tion Service Facilit y BUPROPION XL (bupropion HCl), 150 MG, TAB ER 24H, ORAL, LUPIN PHARMACEU, 90 ea. BOTTLE Active [id number] 2023 90 Pharmac y Data Transac tion Service Facilit y CARVEDILOL (CARVEDILOL ), 3.125MG, TABLET, ORAL, GLENMARK PHARMA, 500 ea. BOTTLE Active [id number] 4 2023 180 Pharmac y Data Transac tion Service Facilit y CARVEDILOL (CARVEDILOL ), 3.125MG, TABLET, ORAL, GLENMARK PHARMA, 500 ea. BOTTLE Active [id number] 2023 180 Pharmac y Data Transac tion Service Facilit y CHOLESTYRAM INE (cholestyra mine (with sugar)), 4 G, POWDER, ORAL, [employer], 378 g CAN Active [id number] 4 2023 378 Pharmac y Data Transac tion Service Facilit y CHOLESTYRAM INE (cholestyra mine (with sugar)), 4 G, POWDER, ORAL, [employer], 378 g CAN Cancele d [id number] : 2023 0 Pharmac y Data Transac tion Service Facilit y CILOSTAZOL (CILOSTAZOL ), 50 MG, TABLET, ORAL, TEVA [employer], 60 ea. BOTTLE Active [id number] 4 2023 180 Pharmac y Data Transac tion Service Facilit y CILOSTAZOL (CILOSTAZOL ), 50 MG, TABLET, ORAL, TEVA [employer], 60 ea. BOTTLE Active [id number] 2023 180 Pharmac y Data Transac tion Service Facilit y CLOPIDOGREL (CLOPIDOGRE L BISULFATE), 75 MG, TABLET, ORAL, AUROBINDO PHARM, 500 ea. BOTTLE Active [id number] 4 2023 90 Pharmac y Data Transac tion Service Facilit y CLOPIDOGREL (CLOPIDOGRE L BISULFATE), 75 MG, TABLET, ORAL, AUROBINDO PHARM, 500 ea. BOTTLE Active [id number] 2023 90 Pharmac y Data Transac tion Service Facilit y FOLIC ACID (folic acid), 1 MG, TABLET, ORAL, CHARTWELL RX LL, 90 ea. BOTTLE Cancele d [id number] : 2023 0 Pharmac y Data Transac tion Service Facilit y FOLIC ACID (folic acid), 1 MG, TABLET, ORAL, SUNRISE PHARMAC, 1000 ea. BOTTLE Active [id number] 2023 90 Pharmac y Data Transac tion Service Facilit y LEVOTHYROXI NE SODIUM (levothyrox ine sodium), 150 MCG, TABLET, ORAL, AMNEAL PHARMACE, 100 ea. BOTTLE Cancele d [id number] : 2023 0 Pharmac y Data Transac tion Service Facilit y LEVOTHYROXI NE SODIUM (levothyrox ine sodium), 150 MCG, TABLET, ORAL, AMNEAL PHARMACE, 100 ea. BOTTLE Active [id number] 2023 90 Pharmac y Data Transac tion Service Facilit y MESALAMINE (mesalamine ), 800 MG, TABLET DR, ORAL, ZYDUS PHARMACEU, 180 ea. BOTTLE Active [id number] 2023 180 Pharmac y Data Transac tion Service Facilit y MESALAMINE (mesalamine ), 800 MG, TABLET DR, ORAL, ZYDUS PHARMACEU, 180 ea. BOTTLE Active [id number] 2023 180 Pharmac y Data Transac tion Service Facilit y PANTOPRAZOL E SODIUM (PANTOPRAZO LE SODIUM), 20 MG, TABLET DR, ORAL, MYLAN, 90 ea. BOTTLE Active [id number] 4 2023 90 Pharmac y Data Transac tion Service Facilit y PRAVASTATIN SODIUM (PRAVASTATI N SODIUM), 10MG, TABLET, ORAL, [employer] [facility], 90 ea. BOTTLE Active [id number] 2023 90 Pharmac y Data Transac tion Service Facilit y Allergies, Adverse Reactions, Alerts Combined list of allergies from Department of Defense and Veterans Affairs facilities. It does not include entries that were removed or entered in error. Substance Category Reaction Severity Reaction type Status Date Reported Comments Source No Known Allergies Drug allergy (disorder) active 11/29/[address] [facility] [place] ([facility]) Immunizations Combined list of available immunizations from the Department of Defense and Veterans Affairs facilities. Immunization Series Date Given Administered By Site Reaction Lot Number CVX Code Drug Dedicated Owner Operator Status Comments Source COVID-19, mRNA, LNP-S, PF, 100 mcg or 50 mcg dose 2020 WISEbTendo, [employer]. (MOD) Not Given COVID-19, mRNA, LNP-S, PF, 100 mcg or 50 mcg dose DoD influenza, high-dose, quadrivalent 2020 TIMPE, () Not Given influenza , high-dose , quadrival ent DoD Influenza vaccine, quadrivalent, adjuvanted 2019 ALUL, () Not Given Influenza vaccine, quadrival ent, adjuvante d DoD influenza, high-dose, quadrivalent 2019 JONAH, () Not Given influenza , high-dose , quadrival ent DoD influenza, trivalent, adjuvanted 2018 ALUL, () Not Given influenza , trivalent , adjuvante d DoD zoster recombinant 2017 JONAH, () Not Given zoster recombina nt DoD pneumococcal polysaccharid e vaccine, 23 valent 1 2015 Unknown, Provider [id number] Merck (MSD) complet ed pneumococ donato polysacch aride vaccine, 23 valent DoD INFLUENZA, UNSPECIFIED FORMULATION 2014 88 complet ed [facility] ZOSTER LIVE 2014 121 complet ed [facility] zoster vaccine, live 1 2013 Unknown, Provider [id number] 121 Merck (MSD) complet ed zoster vaccine, live DoD tetanus toxoid, reduced diphtheria toxoid, and acellular pertu is vaccine, adsorbed 1 2013 Unknown, Provider [id number] [facility] complet ed tetanus toxoid, reduced diphtheri a toxoid, and acellular pertussis vaccine, adsorbed DoD pneumococcal conjugate vaccine, 13 valent 1 2013 Unknown, Provider [id number] 133 WyethDillon (WAL) complet ed pneumococ donato conjugate vaccine, 13 valent DoD Influenza, seasonal, injectable, preservative free 1 2013 Unknown, Provider [id number] 140 Novartis Pharmaceutica l Sandeep. (NOV) complet ed Influenza , seasonal, injectabl e, preservat darwin free DoD INFLUENZA, UNSPECIFIED FORMULATION 2013 88 complet ed [employer] MDSS/SG S R PNEUMOCOCCAL CONJUGATE PCV 13 2013 133 complet ed [facility] TDAP 2013 115 complet ed [facility] Encounters Combined list of: 1) Encounters from Department of Veterans Affairs facilities going back up to thelast 18 months. 2) Encounters from the Department of Defense facilities going back up to 280 months. Location Location Details Encounter Type Encounter Number Reason For Visit Attending Provider ADM Date DC Date Status Disposition Source KRYSTIN CALZADA [facility] Outpatient Encounter [id number] 05/29 KRYSTIN [facility] Outpatient Encounter [id number] 09/10 [facility] Social History Combined list of available smoking, tobacco, and other social history from Department of Defense and Veterans Affairs facilities. Social History Type Response Date Comment [facility] e Tobacco smoking status NHIS CURRENT TOBACCO USER 04/08/2015 [facility] History of tobacco use TOBACCO MEDS OFFE RED BUT DECLINED 04/08/2015 [facility] This section is an empty social history section. DoD
--- OUTSIDE RECORDS SUMMARY | 2024-10-27 10:46 | XMS_ITS | Referral Summary ---
Author Organization [facility] Address [address] [place] [address] Care Team Providers Care Case Finisher Name Role Phone Unavailable Primary Care Provider Unavailabl e Source Comments [facility],non-owned Affiliates and Associated Physician Practices is amultiple site organization consisting of ambulatory clinics and hospital sitesin [place], [place], [place] and [place]. This disclosure is being madepursuant to the Care Everywhere program and may not contain all information available regarding this patient. Last updated 18.[facility] Social History Tobacco Use Types Packs/Day Years Used Date Smoking Tobacco: Never Assessed Sex and Gender Information Value Date Recorded Sex Assigned at Not on file Gender Identity Not on file Sexual Orientation Not on file Last Filed Vital Signs Vital Sign Reading Time Taken Comments Blood Pressure 115/73 01/25/2015 2:27 PM CDT Pulse 80 01/25/2015 2:27 PM CDT Temperature 37 ??C (98.6 ??F) 02/07/2015 4:45 PM CDT Respiratory Rate 12 02/07/2015 4:45 PM CDT Oxygen Saturation - - Inhaled Oxygen Concentration - - Weight 51.3 kg (113 lb) 01/25/2015 2:27 PM CDT Height 162.6 cm (5' 4 ) 02/07/2015 4:45 PM CDT Body Mass Index 19.4 01/25/2015 2:27 PM CDT Plan of Treatment Not on file
--- OUTSIDE RECORDS SUMMARY | 2024-10-27 10:46 | XMS_ITS | Patient Health Summary ---
Author Organization [facility] Address [address] [place] [address] Care Team Providers Care Burlap Man Name Role Phone Unavailable Primary Care Provider Unavailabl e Note from [facility],non-owned Affiliates and Associated Physician Practices is amultiple site organization consisting of ambulatory clinics and hospital sitesin [place], [place], [place] and [place]. This disclosure is being madepursuant to the Care Everywhere program and may not contain all information available regarding this patient. Last updated 18.[facility] [employer] Social History Tobacco Use Types Packs/Day Years [...] Mass Index 19.4 01/25/2015 2:27 PM CDT Procedures * VAS ARTERIAL ANKLE ARM INDEX(Performed 01/25/2015) Results * VAS ARTERIAL ANKLE ARM INDEX (01/25/2015 2:17 PM CDT) Anatomical Region Laterality Modality Other Ronna Morton SHEARING SUPERVISOR-VP DIRECTOR OF CREATIVE STRATEGY VASCULAR LAB OR DERABLES
--- OUTSIDE RECORDS SUMMARY | 2024-10-27 10:46 | XMS_ITS | Encounter Summary ---
Author Organization [facility] Address [address] [place] [address] Care Team Providers Care Nuts And Bolts Assembler Name Role Phone Unavailable Primary Care Provider Unavailabl e Encounter Details Date Type Department Care Team (Latest Contact Info) Description 01/25/2015 Hospital Outpatient Visit Historic [facility] VASCULAR [address] [place] [phone] Discharge Disposition: Home or Self Care Social History Tobacco Use Types Packs/Day Years Used Date Smoking Tobacco: Never Assessed Sex and Gender Information Value Date Recorded Sex Assigned at Not on file Gender Identity Not on file Sexual Orientation Not on file documented as of this encounter Plan of Treatment Not on file documented as of this encounter Procedures Procedure Name Priority Date/Time Associated Diagnosis Comments VAS ARTERIAL ANKLE ARM INDEX Routine 01/25/2015 2:17 PM CDT documented in this encounter Results * VAS ARTERIAL ANKLE ARM INDEX (01/25/2015 2:17 PM CDT) Anatomical Region Laterality Modality Other Ronna Morton APRN-HEAD PAPER TESTER VASCULAR LAB OR DERABLES documented in this encounter Visit Diagnoses Diagnosis Peripheral vascular disease (HCC) Peripheral vascular disease, unspecified documented in this encounter
--- OUTSIDE RECORDS SUMMARY | 2024-10-27 10:46 | XMS_ITS | Encounter Summary ---
Author Organization [facility] Address [address] [place] [address] Care Team Providers Care Beading Sawyer Name Role Phone Unavailable Primary Care Provider Unavailabl e Encounter Details Date Type Department Care Team (Late st Contact Info) Description 01/25/2015 Hospital Outpatient Visit Historic [facility] OUTPATIENT SERVICES [address] [place] [phone] Sue Jiménez MD [address] [place] [address] AGAPITO Arias [phone] Discharge Disposition: Home or Self Care Social History Tobacco Use Types Packs/Day Years Used Date Smoking Tobacco: Never Assessed Sex and Gender Information Value Date Recorded Sex Assigned at Not on file Gender Identity Not on file Sexual Orientation Not on file documented as of this encounter Plan of Treatment Not on file documented as of this encounter Visit Diagnoses Not on filedocumented in this encounter
--- OUTSIDE RECORDS SUMMARY | 2024-10-27 10:46 | XMS_ITS | Encounter Summary ---
Author Organization [facility] Address [address] [place] [address] AGAPITO Santos [address] Care Team Providers Care Socket Puller Name Role Phone Unavailable Primary Care Provider Unavailabl e Reason for Visit * Reason Onset Date Comments Question 10/29/2014 Encounter Details Date Type Department Care Team (Late st Contact Info) Description 10/29/2014 Telephone [facility] Medical [facility] - Pulmonology [address] [facility] [address] [place] [address] [place] [address] [facility] [address] [place] [address] Question Social History Tobacco Use Types Packs/Day Years Used Date Smoking Tobacco: Never Assessed Sex and Gender Information Value Date Recorded Sex Assigned at Not on file Gender Identity Not on file Sexual Orientation Not on file documented as of this encounter Miscellaneous Notes * Telephone Encounter - Rashmi Juan MA - 10/29/2014 10:21 AM CST Spoke to KATE who requested the pager number be given to tension worker. Called clinical social work therapist and leftmessage on confidential VM with 's pager #. She will call if any questions. Per Dr. KATE Has not seen this pt. RVISOR COLD ROLLING * Telephone Encounter - Rashmi Juan MA - 10/29/2014 10:05 AM CST tension worker at [facility] is calling about pt in room 323. Family is asking for a call to the tension worker to discuss, level of care, prognosis, hospice and DNR. They are asking for guidance. Please call My at [facility]. RVISOR COLD ROLLING documented in this encounter Plan of Treatment Not on file documented as of this encounter Visit Diagnoses Not on filedocumented in this encounter
--- OUTSIDE RECORDS SUMMARY | 2024-10-27 10:46 | XMS_ITS | Clinical Summary ---
Author Organization [facility] Address [address] [place] [address] Care Team Providers Care Dining Car Steward Name Role Phone Unavailable Primary Care Provider Unavailabl e Source Comments [facility],non-owned Affiliates and Associated Physician Practices is amultiple site organization consisting of ambulatory clinics and hospital sitesin [place], [place], [place] and [place]. This disclosure is being madepursuant to the Care Everywhere program and may not contain all information available regarding this patient. Last updated 18.[facility] Social History Tobacco Use Types Packs/Day Years [...] 01/25/2015 2:27 PM CDT Plan of Treatment Health Maintenance Due Date Last Done Comments COLOGUARD (AGES 45-75) - COL ON CA SCREENING 1948 COLON MONITORING 1948 COLONOSCOPY - COLON CA SCREENING 1948 CT COLONOGRAPHY - COLON CA SCREENING 1948 Colorectal Cancer Screening 1948 FIT - COLON CA SCREENING 1948 FLEX SIG - COLON CA SCREENING 1948 LIPID TESTING 1948 HEPATITIS C SCREENING 12/09/1966 DTAP/TDAP/TD VACCINES (1 - Tdap) 1967 ZOSTER VACCINE (1 of 2) 1998 PNEUMOCOCCAL VACCINE 65+ (1 of 1 - PCV) 2013 DEPRESSION SCREENING 10/28/2023 Respiratory Syncytial Virus (RSV) Vaccine Pt: or over 60 yrs (1 - 1-dose 75+ series) 2023 COVID-19 VACCINE ( - 2023-2 5 season) 2024 INFLUENZA VACCINE (#1) 2024 HEPATITIS B VACCINE Aged Out No longe r eligible based on patient's age to complete this topic HIB VACCINE Aged Out No longer eligi ble based on patient's age to complete this topic HPV VACCINE Aged Out No longer eligi ble based on patient's age to complete this topic MENINGOCOCCAL VACCINE Aged Out No abel veena eligible based on patient's age to complete this topic
--- OUTSIDE RECORDS SUMMARY | 2024-10-27 10:47 | XMS_ITS | Encounter Summary ---
Author Organization [facility] Address [address] [place] [address]. [place], [place] [address] [place] [address] Care Team Providers Care Tool Design Draftsperson Name Role Phone Aneudy Jaeger MD Primary Care Provider [phone] Nickie Negron MD Primary Care Provider [phone] Encounter Details Date Type Department Care Team (Late st Contact Info) Description 01/09/[address] [facility] [address] Nickie Negron MD [address] [place] [address] Social History Tobacco Use Types Packs/Day Years Used Date Smoking Tobacco: Never Assessed Sex and Gender Information Value Date Recorded Sex Assigned at Not on file Legal Sex Male 4:24 PM CDT Gender Identity Not on file Sexual Orientation Not on file documented as of this encounter Plan of Treatment Upcoming Encounters Date Type Department Care Team (Late st Contact Info) Description 03/02/2025 11:00 AM CDT Appointment [facility] [place] [place] [address] Nickie Negron MD [address] [place] [address] 04/07/2025 12:30 PM CDT Office Visit [facility] THREE [facility], [facility] [address] [place] [address] Nicolas Brown MD Three [facility] [address] [place] [address] documented as of this encounter Visit Diagnoses Diagnosis Osteoporosis- Primary Osteoporosis, unspecified documented in this encounter Care Teams Tool Design Draftsperson Relationship Specialty Start Date End Date Aneudy Jaeger MD PCP - General 08/26/14 08/25/24 Nickie Negron MD [address] [facility] [address] [place] [address] PCP - General INTERNAL MEDICINE 08/26/24 documented as of this encounter
--- OUTSIDE RECORDS SUMMARY | 2024-10-27 10:47 | XMS_ITS | Encounter Summary ---
Author Organization [facility] Address [address] [place] [address]. [place] [address] [place] [address] Care Team Providers Care Finisher Merchant Products Name Role Phone Aneudy Jaeger MD Primary Care Provider [phone] Reason for Visit * Reason Comments Injection * Treatment/Therapy Plan Authorization (Routine) - Authorized Specialty Diagnoses / Procedures Referred By Contac t Referred To Contact Diagnoses Osteoporosis Procedures INJ,DENOSUMAB,1 MG (XGEVA,PROLIA) Nickie Negron MD [address] [place] [address] Phone: tel: fax: [facility] [place] [address] Referral ID Status Reason Start Date Expiration Date Visits Requested Visits Authorized [id number] Authorized Medication 05/21/2024 08/27/2024 2 2 Encounter Details Date Type Department Care Team (Late st Contact Info) Description 08/21/2024 2:00 PM CDT Treatment [facility] [place] [address] Nickie Negron MD [address] [place] [address] Injection Social History Tobacco Use Types Packs/Day Years Used Date Smoking Tobacco: Former Cigarettes Smokeless Tobacco: Never Tobacco Cessation:Counseling Given: Not Answered Alcohol Use Standard Drinks/Week Comments Not Currently 0 (1 standard drink = 0.6 oz pur e alcohol) Sex and Gender Information Value Date Recorded Sex Assigned at Not on file Legal Sex Male 4:24 PM CDT Gender Identity Not on file Sexual Orientation Not on file documented as of this encounter Last Filed Vital Signs Vital Sign Reading Time Taken Comments Blood Pressure 145/88 08/21/2024 2:20 PM CDT Pulse 80 08/21/2024 2:20 PM CDT Temperature 36.3 ??C (97.3 ??F) 08/21/2024 2:20 PM CD T Respiratory Rate 19 08/21/2024 2:20 PM CDT Oxygen Saturation 99% 08/21/2024 2:20 PM CDT Inhaled Oxygen Concentration - - Weight 64 kg (141 lb) 08/21/2024 2:20 PM CDT Height 162.6 cm (5' 4 ) 08/21/2024 2:20 PM CDT Body Mass Index 24.2 08/21/2024 2:20 PM CDT documented in this encounter Progress Notes * Amarilis Solis RN - 08/21/2024 2:00 PM CDT Pt tolerated infusion well. Denies adverse reaction at this time. All questions answered and patient verbalized understanding. documented in this encounter Plan of Treatment Upcoming Encounters Date Type Department Care Team (Late st Contact Info) Description 03/02/2025 11:00 AM CDT Appointment [facility] [place] [address] Nickie Negron MD [address] [place] [address] [address] [place] [address] 04/07/2025 12:30 PM CDT Office Visit [facility] THREE [facility], [address] [address] Nicolas Brown MD Three [facility]. [address] [address] documented as of this encounter Visit Diagnoses Diagnosis Osteoporosis- Primary Osteoporosis, unspecified documented in this encounter Administered Medications Inactive Administered Medications - up to 3 most recent administrations Medication Order MAR Action Action Date Dose Rate Site denosumab (PROLIA) injection 60 mg 60 mg, Subcutaneous, Once, 1 dose, On Sat08/21/24 at 1415Indications:Osteoporosis Given 08/21/2024 2:32 PM CDT 60 mg Left Arm documented in this encounter Care Teams Finisher Merchant Products Relationship Specialty Start Date End Date Anuedy Jaeger MD PCP - General 08/26/14 08/25/24 documented as of this encounter
--- OUTSIDE RECORDS SUMMARY | 2024-10-27 10:47 | XMS_ITS | Encounter Summary ---
Author Organization [facility] Address [address] [place] [address]. [place], [place] [address] [place] [address] Care Team Providers Care Water/Wastewater Project Manager Name Role Phone Nickie Negron MD Primary Care Provider [phone] Encounter Details Date Type Department Care Team (Latest Contact Info) Description 09/30/2024 Travel Social History Tobacco Use Types Packs/Day Years Used Date Smoking Tobacco: Former Cigarettes Smokeless Tobacco: Never Alcohol Use Standard Drinks/Week Comments Not Currently [...] Info) Description 03/02/2025 11:00 AM CDT Appointment [facility] [place] [address] Nickie Negron MD [address] [place] [address] [address] [place] [address] 04/07/2025 12:30 PM CDT Office Visit [facility] THREE [facility], [address] [address] Nicolas Brown MD Three [facility]. [address] [address] documented as of this encounter Visit Diagnoses Not on filedocumented in this encounter Care Teams Water/Wastewater Project Manager Relationship Specialty Start Date End Date Nickie Negron MD [address] [facility] [address] [place] [address] PCP - General INTERNAL MEDICINE 08/26/24 documented as of this encounter
--- OUTSIDE RECORDS SUMMARY | 2024-10-27 10:47 | XMS_ITS | Encounter Summary ---
Author Organization [facility] Address [address] [place] [address]. [place], [place] [address] [place] [address] Care Team Providers Care Sap Trainer Name Role Phone Aneudy Jaeger MD Primary Care Provider [phone] Encounter Details Date Type Department Care Team (Late Contact Info) Description 08/14/[address] [facility] [place] [address] Nickie Negron MD [address] [place] [address] Social History Tobacco Use Types [...] Encounters Date Type Department Care Team (Late Contact Info) Description 03/02/2025 11:00 AM CDT Appointment [facility] Outpatient [facility] [address] Nickie Negron MD [address] [place] [address] 04/07/2025 12:30 PM CDT Office Visit [facility] THREE [facility], [address] [address] Nicolas Brown MD Three [facility]. [facility] [address] [place] [address] documented as of this encounter Visit Diagnoses Diagnosis Osteoporosis- Primary Osteoporosis, unspecified documented in this encounter Care Teams Sap Trainer Relationship Specialty Start Date End Date Aneudy Jaeger MD PCP - General 08/26/14 08/25/24 documented as of this encounter
--- OUTSIDE RECORDS SUMMARY | 2024-10-27 10:47 | XMS_ITS | Encounter Summary ---
Author Organization [facility] Address [address] [place] [address]. [place], [place] [address] [place] [address] Care Team Providers Care Personal Investment Adviser Name Role Phone Aneudy Jaeger MD Primary Care Provider [phone] Encounter Details Date Type Department Care Team (Latest Contact Info) Description 08/12/2024 Travel Social History Tobacco Use Types Packs/Day [...] Info) Description 03/02/2025 11:00 AM CDT Appointment [facility] Outpatient [place] [address] Nickie Negron MD [address] [place] [address] [address] [place] [address] 04/07/2025 12:30 PM CDT Office Visit [facility] [place] THREE [facility], [address] [address] Nicolas Brown MD Three [facility]. [address] [address] documented as of this encounter Visit Diagnoses Not on filedocumented in this encounter Care Teams Personal Investment Adviser Relationship Specialty Start Date End Date Aneudy Jaeger MD PCP - General 08/26/14 08/25/24 documented as of this encounter
--- OUTSIDE RECORDS SUMMARY | 2024-10-27 10:47 | XMS_ITS | Encounter Summary ---
Author Organization [facility] Address [address] [place] [address]. [place], [place] [address] [place] [address] Care Team Providers Care Environmental Laboratory Technician Name Role Phone Aneudy Jaeger MD Primary Care Provider [phone] Encounter Details Date Type Department Care Team (Late Contact Info) Description 08/12/2024 Orders Only [facility] [place] [address] Nickie Negron MD [address] [place] [address] Social History Tobacco Use Types [...] Info) Description 03/02/2025 11:00 AM CDT Appointment [facility] [place] [place] [address] Nickie Negron MD [address] [place] [address] 04/07/2025 12:30 PM CDT Office Visit [facility] THREE [facility], [address] [address] Nicolas Brown MD Three [facility]. [facility] [address] [place] [address] documented as of this encounter Visit Diagnoses Diagnosis Osteoporosis- Primary Osteoporosis, unspecified documented in this encounter Care Teams Environmental Laboratory Technician Relationship Specialty Start Date End Date Aneudy Jaeger MD PCP - General 08/26/14 08/25/24 documented as of this encounter
--- OUTSIDE RECORDS SUMMARY | 2024-10-27 10:47 | XMS_ITS | Encounter Summary ---
Author Organization [facility] Address [address] [place] [address]. [place], [place] [address] [place] [address] Care Team Providers Care In School Suspension Aide Name Role Phone Nickie Negron MD Primary Care Provider [phone] Encounter Details Date Type Department Care Team (Latest Contact Info) Description 09/11/2024 Travel Social History Tobacco Use Types Packs/Day [...] Info) Description 03/02/2025 11:00 AM CDT Appointment [facility] [place] [address] Nickie Negron MD [address] [place] [address] [address] [place] [phone] 04/07/2025 12:30 PM CDT Office Visit [facility] THREE [facility], [address] [address] Nicolas Brown MD Three [facility]. [address] [address] documented as of this encounter Visit Diagnoses Not on filedocumented in this encounter Care Teams In School Suspension Aide Relationship Specialty Start Date End Date Nickie Negron MD [address] [facility] [address] [place] [address] PCP - General INTERNAL MEDICINE 08/26/24 documented as of this encounter
--- OUTSIDE RECORDS SUMMARY | 2024-10-27 10:47 | XMS_ITS | Encounter Summary ---
Author Organization [facility] Address [address] [place] [address]. [place], [place] [address] [place] [address] Care Team Providers Care Motor Teacher Name Role Phone Nickie Negron MD Primary Care Provider [phone] Reason for Referral * Procedure (Routine) - New Request Specialty Diagnoses / Procedures Referred By Contac t Referred To Contact Diagnoses Dyspnea on exertion Coronary artery disease involving point lay ira coronary artery of point lay ira heart, unspecified whether angina present Gastroesophageal reflux disease with esophagitis Atherosclerosis of coronary artery Asthma ([facility]/HCC) Hyperlipidemia Chronic obstructive pulmonary disease ([facility] HHS/HCC) Peripheral vascular disease ([facility]) Dyslipidemia Chronic renal failure Carotid artery stenosis, unilateral Bilateral carotid artery stenosis Benign hypertension Procedures CARDIOLOGY STRESS TEST ONLY, EXERCISE [facility] [place] [address] Phone: tel: Referral ID Status Reason Start Date Expiration Date V isits Requested Visits Authorized [id number] New Request 09/11/2024 09/11/2025 1 1 OMETRICS PROFESSOR * Imaging (Routine) - Closed Specialty Diagnoses / Procedures Referred By Contac t Referred To Contact RADIOLOGY Diagnoses Dyspnea on exertion CAD (coronary artery disease) Procedures NM PHARM NUC STRESS TEST 1 DAY W TRACING Nicolas Brown MD Three [facility]. [address] [address] Phone: tel: fax: Referral ID Status Reason Start Date Expiration Date Visits Re quested Visits Authorized [id number] Closed 09/11/2024 09/11/2024 1 1 OMETRICS PROFESSOR Reason for Visit * Imaging (Routine) - Closed Specialty Diagnoses / Procedures Referred By Contac t Referred To Contact RADIOLOGY Diagnoses Dyspnea on exertion CAD (coronary artery disease) Procedures NM PHARM NUC STRESS TEST 1 DAY W TRACING Nicolas Brown MD Three [facility]. [address] [address] Phone: tel: fax: Referral ID Status Reason Start Date Expiration Date Visits Re quested Visits Authorized [id number] Closed 09/11/2024 09/11/2024 1 1 Encounter Details Date Type Department Care Team (Late st Contact Info) Description 09/11/2024 6:58 AM ECONOMETRICS PROFESSOR - 09/11/2024 11:59 PM ECONOMETRICS PROFESSOR Hospital Encounter [facility] Nuclear Medicine [address] [place], [place] [address] Nicolas Brown MD Three [facility]. [address] [id number] Discharge Disposition: Home or Self Care (Routine Discharge) Social History Tobacco Use Types Packs/Day Years [...] on file documented as of this encounter Medications at Time of Discharge acetaminophen (TYLENOL) 500 MG tablet Take 1 tablet (500 mg total) by mouth. albuterol sulfate HFA 108 (90 Base) MCG/ACT inhaler INHALE 2 PUFFS BY MOUTH EVERY 8 HOURS NEEDED ASPIRIN LOW DOSE 81 MG tablet Take 1 tablet (81 mg total) by mouth daily. buPROPion XL (WELLBUTRIN XL) 150 MG 24 hr tablet every morning. 10/29/2023 calcium carbonate (OS-RADHA) 1500 (600 Ca) MG tablet Take 1 tablet every day by oral route in the morning. 04/08/2024 carvedilol (COREG) 3.125 MG tablet 2 (two) times daily. 11/04/2023 cholestyramine (QUESTRAN) 4 GM/DOSE powder Take 1 packet (4 g total) by mouth. 12/01/2023 cilostazol (PLETAL) 50 MG tablet 2 (two) times daily. 08/12/2024 clopidogrel (PLAVIX) 75 MG tablet daily. 11/19/2023 denosumab (PROLIA) 60 MG/ML injection Inject 1 mL (60 mg total) into the skin every 6 (six) months. fluticasone propionate (FLONASE) 50 MCG/ACT nasal spray SHAKE LIQUID AND USE 1 SPRAY IN EACH NOSTRIL EVERY DAY folic acid (FOLVITE) 1 MG tablet daily. 10/29/2023 iron polysaccharides (NIFEREX) 150 MG capsule Take by mouth every other day. isosorbide mononitrate ER (IMDUR) 30 MG 24 hr tablet Take 0.5 tablets (15 mg total) by mouth daily. 15 tablet 3 08/12/2024 levothyroxine (SYNTHROID) 175 MCG tablet Take 1 tablet (175 mcg total) by mouth daily. 01/02/2024 lidocaine (AKTEN) 3.5 % Gel ophthalmic gel as needed. mesalamine EC (ASACOL HD) 800 MG tablet 2 (two) times a day. 11/20/2023 Multiple Vitamins-Minerals (DAILY MULTI) Tab Take by mouth daily. 12/16/2013 Multiple Vitamins-Minerals (PRESERVISION AREDS) capsule daily. pantoprazole EC (PROTONIX) 20 MG tablet daily. 01/14/2024 pravastatin (PRAVACHOL) 10 MG tablet nightly at bedtime. 02/05/2024 sodium bicarbonate 650 MG tablet Take 1 tablet (650 mg total) by mouth 3 (three) times daily. tiZANidine (ZANAFLEX) 4 MG tablet Take 1 tablet (4 mg total) by mouth every 6 (six) hours as needed. triamcinolone (KENALOG) 0.1 % cream APPLY TOPICALLY TO THE AFFECTED AREA OF FEET TWICE DAILY vitamin D3 (CHOLECALCIFEROL) 125 mcg Tab daily. Cyanocobalamin 5000 MCG SL Tab daily. 4 diclofenac sodium (VOLTAREN) 1 % gel APPLY 2 GRAMS TOPICALLY TO THE AFFECTED AREA FOUR TIMES DAILY 4 documented as of this encounter Plan of Treatment Upcoming Encounters Date Type Department Care Team (Late st Contact Info) Description 03/02/2025 11:00 AM CDT Appointment [facility] [place] [address] Nickie Negron MD [address] [place] [address] 04/07/2025 12:30 PM CDT Office Visit [facility] THREE [facility], [address] [place], [place] [phone] Nicolas Brown MD Three [facility]. [facility] [address] [place], [place] [phone] documented as of this encounter Procedures Procedure Name Priority Date/Time Associated Diagnosis Comments NM PHARM NUC STRESS TEST 1DAY Routine 09/11/2024 9:47 AM ECONOMETRICS PROFESSOR Dyspnea on exertion Coronary artery disease involving point lay ira coronary artery of point lay ira heart, unspecified whether angina present CARDIOLOGY STRESS TEST ONLY, EXERCISE Routine 09/11/2024 7:11 AM ECONOMETRICS PROFESSOR Dyspnea on exertion Coronary artery disease involving point lay ira coronary artery of point lay ira heart, unspecified whether angina present Gastroesophageal reflux disease with esophagitis Atherosclerosis of coronary artery Asthma (HHS/HCC) Hyperlipidemia Chronic obstructive pulmonary disease (CMS/HCC HHS/HCC) Peripheral vascular disease (CMS/HCC) Dyslipidemia Chronic renal failure Carotid artery stenosis, unilateral Bilateral carotid artery stenosis Benign hypertension documented in this encounter Results * NM PHARM NUC STRESS TEST 1 DAY W TRACING (09/11/2024 9:47 AM ECONOMETRICS PROFESSOR) Anatomical Region Laterality Modality Cardiac Nuclear Medicine 09/11/2024 7:32 AM ECONOMETRICS PROFESSOR Narrative 09/11/2024 2:17 PM ECONOMETRICS PROFESSOR ? Myocardial Perfusion Imaging ? Pat.Name: ??JULIUS ANDRADE.ID: ?[id number] ? St.Date: ?? 09/11/2024 ?Refer.MD: ??Migdalia ? Exam Time: 7:32:00 AM ? Study Type:VINNIE NC HT MUSCLE IMAGE SPECT MULTI Height: ?64 in ? Weight: ?141 lb ? BSA: ? 1.69 m2 ?Age: ??1950,73Y ? Sex: ? M ? Sonogrphr: EVIE Mercado ? Pat. Stat.:Outpatient ? Reason for Study:Chest pain, Shortness of breath, Evaluation of known CAD History / Clinical:Dyslipidemia, Hypertension, COPD, GERD, Ex-Smoker, PVD/PAD, Renal Insufficiency, Carotid Stenosis Procedures: Nuclear Stress Test with Lexiscan Race: ?W ? Surgery: ?? Cardiac Catheterization, Echocardiogram, Coronary Stent ++++++++++++++++++++++++++++++++++++ SUMMARY: ++++++++++++++++++++++++++++++++++++ Stress conclusion: 1. ? Clinically negative. 2. ? Electrocardiographically negative stress test for ischemia. 3. ? Scintigraphic images to follow. Perfusion conclusion: 1. ??Good study quality. ??No motion correction was applied to images. No attenuation is noted. ??Prone imaging was performed. 2. ??Normal myocardial perfusion SPECT imaging. ?? 3. ??Normal wall motion with an ejection fraction of 67%. ?? 4. ??Stress test with myocardial perfusion imaging shows overall low risk for a cardiac event. ++++++++++++++++++++++++++++++++++++ FINDINGS: ++++++++++++++++++++++++++++++++++++ Protocol: Lexiscan 0.4mg was given as a rapid injection IV over a ?period of 10 seconds with the radiopharmaceutical injected ?at 20 seconds. The images were processed using the standard ?SPECT technique. A gated study was performed on the stress ?images. Impression: SPECT images demonstrate normal perfusion of normal ?intensity. Heart Size: The left ventricle is normal. LV Wall Motion: The LVEF is calculated to be 67%. Gated SPECT images ?reveal normal wall motion. Transient Ischemic Dilatation: The TID is 1.07. There is no evidence ?of Transient Ischemic Dilatation. ++++++++++++++++++++++++++++++++++++ STRESS: ++++++++++++++++++++++++++++++++++++ Baseline Vital Signs: ECG: ? Sinus rhythm, no ST changes, Frequent PACs HR: ?86 bmp ?Rest BP: ?? 123/75 Regadenoson ? Peak Dose: 0.4 mg Stress Test Results: Max HR: ?114 bmp ? Target HR: 145 bmp % Target: ??79 % ?Max BP: ?81/50 Max RPP: ?? 9234 ? O2 sat: ?100 % Symptoms and Complications: Terminated: Protocol completed Symptoms: ??Dizziness Complications: None Stress ECG Interp: No ischemic changes, Sinus tachycardia <Electronic Signature> 09/11/2024 02:17 PM Nicolas Brown M.D. Procedure Note Nicolas Brown MD - 09/11/2024 Myocardial Perfusion Imaging Pat.Name: JULIUS ANDRADE.ID: [id number] St.Date: 09/11/2024 Refer.: Migdalia Exam Time: 7:32:00 AM Study Type:VINNIE NC HT MUSCLE IMAGE SPECT MULTI Height: 64 in Weight: 141 lb BSA: 1.69 m2 Age: 2 1950,73Y Sex: M Sonogrphr: EVIE Mercado Pat. Stat.:Outpatient Reason for Study:Chest pain, Shortness of breath, Evaluation of known CAD History / Clinical:Dyslipidemia, Hypertension, COPD, GERD, Ex-Smoker, PVD/PAD, Renal Insufficiency, Carotid Stenosis Procedures: Nuclear Stress Test with Lexiscan Race: W Surgery: Cardiac Catheterization, Echocardiogram, Coronary Stent ++++++++++++++++++++++++++++++++++++ SUMMARY: ++++++++++++++++++++++++++++++++++++ Stress conclusion: 1. Clinically negative. 2. Electrocardiographically negative stress test for ischemia. 3. Scintigraphic images to follow. Perfusion conclusion: 1. Good study quality. No motion correction was applied to images. No attenuation is noted. Prone imaging was performed. 2. Normal myocardial perfusion SPECT imaging. 3. Normal wall motion with an ejection fraction of 67%. 4. Stress test with myocardial perfusion imaging shows overall low risk for a cardiac event. ++++++++++++++++++++++++++++++++++++ FINDINGS: ++++++++++++++++++++++++++++++++++++ Protocol: Lexiscan 0.4mg was given as a rapid injection IV over a period of 10 seconds with the radiopharmaceutical injected at 20 seconds. The images were processed using the standard SPECT technique. A gated study was performed on the stress images. Impression: SPECT images demonstrate normal perfusion of normal intensity. Heart Size: The left ventricle is normal. LV Wall Motion: The LVEF is calculated to be 67%. Gated SPECT images reveal normal wall motion. Transient Ischemic Dilatation: The TID is 1.07. There is no evidence of Transient Ischemic Dilatation. ++++++++++++++++++++++++++++++++++++ STRESS: ++++++++++++++++++++++++++++++++++++ Baseline Vital Signs: ECG: Sinus rhythm, no ST changes, Frequent PACs HR: 86 bmp Rest BP: 123/75 Regadenoson Peak Dose: 0.4 mg Stress Test Results: Max HR: 114 bmp Target HR: 145 bmp % Target: 79 % Max BP: 81/50 Max RPP: 9234 O2 sat: 100 % Symptoms and Complications: Terminated: Protocol completed Symptoms: Dizziness Complications: None Stress ECG Interp: No ischemic changes, Sinus tachycardia <Electronic Signature> 09/11/2024 02:17 PM Nicolas Brown M.D. Nicolas Brown MD [facility] Final Resul t documented in this encounter Visit Diagnoses Diagnosis Coronary artery disease involving point lay ira coronary artery of point lay ira heart, unspecified whether angina present- Primary Dyspnea on exertion Other dyspnea and respiratory abnormality Gastroesophageal reflux disease with esophagitis Atherosclerosis of coronary artery Coronary atherosclerosis of unspecified type of vessel, point lay ira or graft Asthma (HHS/HCC) Unspecified asthma Hyperlipidemia Other and unspecified hyperlipidemia Chronic obstructive pulmonary disease ([facility] HHS/HCC) Chronic airway obstruction, not elsewhere classified Peripheral vascular disease ([facility]) Peripheral vascular disease, unspecified Dyslipidemia Other and unspecified hyperlipidemia Chronic renal failure Chronic kidney disease, unspecified Carotid artery stenosis, unilateral Occlusion and stenosis of carotid artery without mention of cerebral infarction Bilateral carotid artery stenosis Occlusion and stenosis of multiple and bilateral precerebral arteries without mention of cerebral infarction Benign hypertension Essential hypertension, benign documented in this encounter Administered Medications Inactive Administered Medications - up to 3 most recent administrations Medication Order MAR Action Action Date Dose Rate Site regadenoson (LEXISCAN) injection 0.4 mg 0.4 mg, Intravenous, Once, 1 dose, On Sat09/11/24 at 0730, Administer over 10 seconds Given 09/11/2024 9:05 AM ECONOMETRICS PROFESSOR 0.4 mg technetium Tc 99M tetrofosmin (MYOVIEW) radio-isotope injection 11.4 millicurie 11.4 millicurie, Intravenous, Once, 1 dose, On Sat09/11/24 at 1015, RADIOPHARMACEUTICAL: Use appropriate precautions for handling & disposal. Follow appropriate safety measures to minimize radiation exposure during administration; use waterproof gloves & effective shielding, including syringe meléndez. Given 09/11/2024 9:47 AM ECONOMETRICS PROFESSOR 11.4 millicuries technetium Tc 99M tetrofosmin (MYOVIEW) radio-isotope injection 32.9 millicurie 32.9 millicurie, Intravenous, Once, 1 dose, On Sat09/11/24 at 1015, RADIOPHARMACEUTICAL: Use appropriate precautions for handling & disposal. Follow appropriate safety measures to minimize radiation exposure during administration; use waterproof gloves & effective shielding, including syringe meléndez. Given 09/11/2024 9:47 AM ECONOMETRICS PROFESSOR 32.9 millicuries documented in this encounter Care Teams Motor Teacher Relationship Specialty Start Date End Date Nickie Negron MD [address] [facility] [address] [place] [address] PCP - General INTERNAL MEDICINE 08/26/24 documented as of this encounter
--- OUTSIDE RECORDS SUMMARY | 2024-10-27 10:47 | XMS_ITS | Encounter Summary ---
Author Organization [facility] Address [address] [place] [address]. [place], [place] [address] [place] [address] Care Team Providers Care Manager Diversity Name Role Phone Aneudy Jaeger MD Primary Care Provider [phone] Nickie Negron MD Primary Care Provider [phone] Encounter Details Date Type Department Care Team (Late st Contact Info) Description 01/30/[address] [facility] [address] Nickie Negron MD [address] [place] [address] Social History Tobacco Use Types [...] Info) Description 03/02/2025 11:00 AM CDT Appointment [facility] [place] [address] Nickie Negron MD [address] [place] [address] 04/07/2025 12:30 PM CDT Office Visit [facility] THREE [facility], [address] [place] [address] Nicolas Brown MD Three [facility]. [facility] [address] [place] [address] documented as of this encounter Visit Diagnoses Not on filedocumented in this encounter Care Teams Manager Diversity Relationship Specialty Start Date End Date Aneudy Jaeger MD PCP - General 08/26/14 08/25/24 Nickie Negron MD [address] [facility] [address] [place] [address] PCP - General INTERNAL MEDICINE 08/26/24 documented as of this encounter
--- OUTSIDE RECORDS SUMMARY | 2024-10-27 10:47 | XMS_ITS | Encounter Summary ---
Author Organization [facility] Address [address] [place] [address]. [place] [address] [place] [address] Care Team Providers Care Edger Tailer Name Role Phone Aneudy Jaeger MD Primary Care Provider [phone] Reason for Visit * Reason Onset Date Comments Appointment Request 06/01/2024 Encounter Details Date Type Department Care Team (Late st Contact Info) Description 06/01/2024 Telephone [facility] [place], [address] [address] Nickie Negron MD [address] [place] [address] [address] [place] [address] Appointment Request Social History Tobacco Use Types Packs/Day Years Used Date Smoking Tobacco: Never Assessed Sex and Gender Information Value Date Recorded Sex Assigned at Not on file Legal Sex Male 4:24 PM CDT Gender Identity Not on file Sexual Orientation Not on file documented as of this encounter Progress Notes * Lisa Atkinson - 06/03/2024 9:54 AM CDT Called out to patient no answer left 2nd message about scheduling * Lisa Atkinson - 06/01/2024 10:30 AM CDT Received fax paper order from Dr Nickie Negron for referral to cardiology for coronary arteriosclerosis Called out to pt no answer left message about scheduling documented in this encounter Plan of Treatment Upcoming Encounters Date Type Department Care Team (Late st Contact Info) Description 03/02/2025 11:00 AM CDT Appointment [facility] Outpatient Transfusion [facility] [address] [place] [address] Nickie Negron MD 331 [facility] [address] [place] [address] 04/07/2025 12:30 PM CDT Office Visit [facility] THREE [facility], [facility] [address] [place], [place] [address] Nicolas Brown MD Three [facility]. [facility] [address] [place], [place] [phone] documented as of this encounter Visit Diagnoses Not on filedocumented in this encounter Care Teams Edger Tailer Relationship Specialty Start Date End Date Aneudy Jaeger MD PCP - General 08/26/14 08/25/24 documented as of this encounter
--- OUTSIDE RECORDS SUMMARY | 2024-10-27 10:47 | XMS_ITS | Encounter Summary ---
Author Organization [facility] Address [address] [place] [address]. [place] [address] [place] [address] Care Team Providers Care Molding Sander Name Role Phone Aneudy Jaeger MD Primary Care Provider [phone] Encounter Details Date Type Department Care Team (Latest Contact Info) Description 07/24/2015 Abstract [facility] Medical Group Porfirio Mcdowell MD 3 [facility] [address] [place], [place] [address] Social History Tobacco Use Types Packs/Day Years [...] Info) Description 03/02/2025 11:00 AM CDT Appointment [facility] [place] [address] Nickie Negron MD [address] [facility] [address] [place] [address] 04/07/2025 12:30 PM CDT Office Visit [facility] THREE [facility], [facility] [address] [place] [address] Nicolas Brown MD Three [facility]. [address] [address] documented as of this encounter Visit Diagnoses Not on filedocumented in this encounter Care Teams Molding Sander Relationship Specialty Start Date End Date Aneudy Jaeger MD PCP - General 08/26/14 08/25/24 documented as of this encounter
--- OUTSIDE RECORDS SUMMARY | 2024-10-27 10:47 | XMS_ITS | Encounter Summary ---
Author Organization [facility] Address [address] [place] [address]. [place], [place] [address] [place] [address] Care Team Providers Care Auxiliary Powerplant Operator Name Role Phone Aneudy Jaeger MD Primary Care Provider [phone] Encounter Details Date Type Department Care Team (Late st Contact Info) Description 09/29/2018 Abstract [facility] Conversion Aneudy Jaeger MD [address] [place] [address] Social History Tobacco Use Types Packs/Day Years [...] Info) Description 03/02/2025 11:00 AM CDT Appointment [facility] [address] [facility] [place] [address] Nickie Negron MD [address] [facility] [address] [place] [address] 04/07/2025 12:30 PM CDT [facility] THREE [facility] [address], [facility] [address] [place], [place] [address] Nicolas Brown MD Three [facility]. [facility] [address] [place] [address] documented as of this encounter Procedures Procedure Name Priority Date/Time Associated Diagnosis Comments THYROID PANEL Routine 06/13/2012 8:35 AM CDT documented in this encounter Results * (ABNORMAL) THYROID PANEL (06/13/2012 8:35 AM CDT) FREE T4 0.71(L) 0.89 - 1.76 NG/DL [facility] TO EPIC CONVERSION TSH ULTRASENSITIVE 14.29(H) 0.55 - 4.78 UIU/ML [facility] TO EPIC CONVERSION 06/13/2012 8:35 AM CDT 06/13/2012 8:35 AM CDT Narrative [facility] TO EPIC CONVERSION - 06/13/2012 8:35 AM CDT [Task Replied to judith] inform pt that his thyroid level is low.inc the Levothyroxine to ??50 mcg daily ( double of what he has )will f/u in Octrepeat TSH,T4 next visit us Aneudy Jaeger MD LABORATORY Final Result [facility] TO EPIC CONVERSION documented in this encounter Visit Diagnoses Not on filedocumented in this encounter Care Teams Auxiliary Powerplant Operator Relationship Specialty Start Date End Date Aneudy Jaeger MD PCP - General 08/26/14 08/25/24 documented as of this encounter
--- OUTSIDE RECORDS SUMMARY | 2024-10-27 10:47 | XMS_ITS | Encounter Summary ---
Author Organization [facility] Address [address] [place] [address]. [place], [place] [address] [place] [address] Care Team Providers Care Glass Cut Off Tender Name Role Phone Aneudy Jaeger MD Primary Care Provider [phone] Encounter Details Date Type Department Care Team (Latest Contact Info) Description 08/07/2021 Travel Social History Tobacco Use Types Packs/Day Years Used Date Smoking Tobacco: Never Assessed Sex and Gender Information Value Date Recorded Sex Assigned at Not on file Legal Sex Male 4:24 PM CDT Gender Identity Not on file Sexual Orientation Not on file COVID-19 Exposure Response Date Recorded In the last month, have you been in contact with someone who was confirmed or suspected to have Coronavirus / COVID-19? No / Unsure 08/07/2021 9:24 AM CDT documented as of this encounter Plan of Treatment Upcoming Encounters Date Type Department Care Team (Late st Contact Info) Description 03/02/2025 11:00 AM CDT Appointment [facility] [place] [address] Nickie Negron MD [address] [place] [address] [address] [place] [address] 04/07/2025 12:30 PM CDT [facility] THREE [facility], [address] [phone] Nicolas Brown MD Three [facility]. [address] [address] documented as of this encounter Visit Diagnoses Not on filedocumented in this encounter Care Teams Glass Cut Off Tender Relationship Specialty Start Date End Date Aneudy Jaeger MD PCP - General 08/26/14 08/25/24 documented as of this encounter
--- OUTSIDE RECORDS SUMMARY | 2024-10-27 10:47 | XMS_ITS | Encounter Summary ---
Author Organization [facility] Address [address] [place] [address]. [place], [place] [address] [place] [address] Care Team Providers Care Veterinarian Epidemiologist Name Role Phone Aneudy Jaeger MD Primary Care Provider [phone] Encounter Details Date Type Department Care Team (Latest Contact Info) Description 08/21/2024 Travel Social History Tobacco Use Types Packs/Day [...] Appointment [facility] [place] [address] Nickie Negron MD [address] [place] [address] [address] [place] [phone] 04/07/2025 12:30 PM CDT Office Visit Sim [facility], [address] [address] Nicolas Brown MD Three [facility]. [address] [address] documented as of this encounter Visit Diagnoses Not on filedocumented in this encounter Care Teams Veterinarian Epidemiologist Relationship Specialty Start Date End Date Aneudy Jaeger MD PCP - General 08/26/14 08/25/24 documented as of this encounter
--- OUTSIDE RECORDS SUMMARY | 2024-10-27 10:47 | XMS_ITS | Clinical Summary ---
Author Organization [facility] Address [address] [place] [address]. [place], [place] [address] [place] [address] Care Team Providers Care Office Machine Mechanic Name Role Phone Nickie Negron MD Primary Care Provider [phone] Allergies Active Allergy Reactions Criticality Noted Date Comments Gluten Meal Other (see comment) Low 08/12/2024 wheat Lactose GI Upset Low 05/05/2020 Wheat Extract Unknown 09/30/2024 Medications clopidogrel (PLAVIX) 75 MG tablet daily. 11/19/19 24 Active denosumab (PROLIA) 60 MG/ML injection Inject 1 mL (60 mg total) into the skin every 6 (six) months. Active fluticasone propionate (FLONASE) 50 MCG/ACT nasal spray SHAKE LIQUID AND USE 1 SPRAY IN EACH NOSTRIL EVERY DAY Active folic acid (FOLVITE) 1 MG tablet daily. 10/29/19 24 Active levothyroxine (SYNTHROID) 175 MCG tablet Take 1 tablet (175 mcg total) by mouth daily. 01/02/20 24 Active pantoprazole EC (PROTONIX) 20 MG tablet daily. 01/14/20 24 Active iron polysaccharides (NIFEREX) 150 MG capsule Take by mouth every other day. Active pravastatin (PRAVACHOL) 10 MG tablet nightly at bedtime. 02/05/20 24 Active Multiple Vitamins-Minerals (PRESERVISION AREDS) capsule daily. Activ e Multiple Vitamins-Minerals (DAILY MULTI) Tab Take by mouth daily. 12/16/19 14 Active triamcinolone (KENALOG) 0.1 % cream APPLY TOPICALLY TO THE AFFECTED AREA OF FEET TWICE DAILY Active acetaminophen (TYLENOL) 500 MG tablet Take 1 tablet (500 mg total) by mouth. Active albuterol sulfate HFA 108 (90 Base) MCG/ACT inhaler INHALE 2 PUFFS BY MOUTH EVERY 8 HOURS NEEDED Active ASPIRIN LOW DOSE 81 MG tablet Take 1 tablet (81 mg total) by mouth daily. Active mesalamine EC (ASACOL HD) 800 MG tablet 2 (two) times a day. 11/20/19 Active buPROPion XL (WELLBUTRIN XL) 150 MG 24 hr tablet every morning. 10/29/19 24 Active calcium carbonate (OS-RADHA) 1500 (600 Ca) MG tablet Take 1 tablet every day by oral route in the morning. 04/08/20 24 Active carvedilol (COREG) 3.125 MG tablet 2 (two) times daily. 11/04/19 24 Active vitamin D3 (CHOLECALCIFEROL) 125 mcg Tab daily. Active cholestyramine (QUESTRAN) 4 GM/DOSE powder Take 1 packet (4 g total) by mouth. 12/01/19 Active tiZANidine (ZANAFLEX) 4 MG tablet Take 1 tablet (4 mg total) by mouth every 6 (six) hours as needed. Active cilostazol (PLETAL) 50 MG tablet 2 (two) times daily. 08/12/20 Active sodium bicarbonate 650 MG tablet Take 1 tablet (650 mg total) by mouth 3 (three) times daily. Active lidocaine (AKTEN) 3.5 % Gel ophthalmic gel as needed. Acti ve isosorbide mononitrate ER (IMDUR) 30 MG 24 hr tablet Take 0.5 tablets (15 mg total) by mouth daily. 15 tablet 3 08/12/20 24 Active Cyanocobalamin 5000 MCG SL Tab daily. 2023 Discontinued( Pt. elected to discontinue med) diclofenac sodium (VOLTAREN) 1 % gel APPLY 2 GRAMS TOPICALLY TO THE AFFECTED AREA FOUR TIMES DAILY 2023 Discontinued( Pt. elected to discontinue med) Active Problems Problem Noted Date Diagnosed Date Chronic obstructive pulmonary disease (CMS/HCC H HS/HCC) 08/11/2024 Hyperlipidemia 08/11/2024 Benign hypertension 05/13/2023 Bilateral carotid artery stenosis 08/23/2021 Overview (08/11/2024): Last Assessment & Plan: Impression: Stable carotid artery disease. He has a chronically occluded left common carotid artery with retrograde filling of his left internal from his left external carotid artery. He has stable right internal carotid stenosis which is asymptomatic. Plan: No surgical intervention currently needed. Recommend ongoing risk factor modifications and follow-up in 6 months for re-evaluation with repeat carotid duplex surveillance. Carotid artery stenosis, unilateral 02/05/2021 Overview (08/11/2024): Last Assessment & Plan: Impression: Stable right internal carotid artery stenosis with a chronically occluded left internal carotid artery. Patient remains asymptomatic. Plan: No surgical intervention currently needed. Recommend ongoing risk factor modifications and follow-up in 1 year for re-evaluation with repeat carotid duplex surveillance. Osteoporosis 01/30/2021 Gastroesophageal reflux disease with esophagitis 05/05/2020 Asthma ([facility]) 08/16/2017 Dyslipidemia 12/19/2016 Claudication of left lower extremity 06/21/2016 Chronic renal failure 02/27/2016 Overview (08/11/2024): sees nephrology evary 6 months Peripheral vascular disease 02/27/2016 Overview (08/11/2024): sees vascular surg every 6 months Atherosclerosis of coronary artery 02/27/2016 Crohn's disease without complication ([facility]) 02/27/2016 Dyspnea on exertion 01/28/2016 Encounters Date Type Department Care Team Description 09/30/2024 2:30 PM PSYCHOLOGY TEACHER Office Visit Sim Cardiovascular[facility]argo [facility], [address] [address] Jen Lim FNP Follow Up (CD Rocio f/u) 09/30/2024 Travel 09/11/2024 6:58 AM PSYCHOLOGY TEACHER - 09/11/2024 11:59 PM PSYCHOLOGY TEACHER Hospital Encounter [facility] [place] [address] Nicolas Brown MD Discharge Disposition: Home or Self Care (Routine Discharge) 09/11/2024 Telephone [facility], [address] [address] Renee Obrien, CABLE STRANDER Results 09/11/2024 Travel 08/26/2024 2:27 PM CDT - 08/26/2024 11:59 PM CDT Hospital Encounter [facility] Non [place] [address] Nicolas Brown MD Discharge Disposition: Home or Self Care (Routine Discharge) 08/26/2024 Travel 08/21/2024 2:00 PM CDT Treatment [facility] [place] [address] Nickie Negron MD Injection 08/21/2024 Travel 08/14/2024 Orders Only [facility] [place] [address] Nickie Negron MD 08/12/2024 9:15 AM CDT Office Visit [facility] [address] [address] Nicolas Brown MD Coronary Artery Disease (New Consult ); Lipids 08/12/2024 Orders Only [facility] [place] [address]Nickie Lawson MD 08/12/2024 Travel 08/12/2024 Orders Only [facility] [place], [place] [address]Nickie Lawson MD 07/28/2024 Scan [facility] [place] [address] [place] [address] Scanned, Doc Pccl from Last 3 Months Social History Tobacco Use Types Packs/Day Years [...] Sign Reading Time Taken Comments Blood Pressure 130/74 09/30/2024 2:28 PM PSYCHOLOGY TEACHER Pulse 100 09/30/2024 2:28 PM PSYCHOLOGY TEACHER Temperature 36.3 ??C (97.3 ??F) 08/21/2024 2:20 PM CD T Respiratory Rate 19 08/21/2024 2:20 PM CDT Oxygen Saturation 98% 09/30/2024 2:28 PM PSYCHOLOGY TEACHER Inhaled Oxygen Concentration - - Weight 66 kg (145 lb 9.6 oz) 09/30/2024 2:28 PM PSYCHOLOGY TEACHER Height 162.6 cm (5' 4 ) 09/30/2024 2:28 PM PSYCHOLOGY TEACHER Body Mass Index 24.99 09/30/2024 2:28 PM PSYCHOLOGY TEACHER Plan of Treatment Upcoming Encounters Date Type Department Care Team (Late st Contact Info) Description 03/02/2025 11:00 AM CDT Appointment [facility] [place] [address] Nickie Negron MD [address] [facility] [address] [place] [phone] 04/07/2025 12:30 PM CDT Office Visit [facility], [address] [address] Nicolas Brown MD Three [facility]. [address] [address] Health Maintenance Due Date Last Done Comments Colorectal Cancer Screening Colonoscopy (10 Years) 1950 Hepatitis C 1966 Annual Medicare Wellness Visit 2013 ASCVD LDL 01/26/2014 01/26/2013 RSV Immunization or 60+ Years (1 - 1-dose 75+ series) 2023 DTaP, Tdap and Td Vaccines (2 - Td or Tdap) 05/29/2034 05/29/2024, 02/03/2023, 11/15/2021, Additional history exists Pneumococcal Vaccine: 65+ Years Completed 05/22/2016, 05/21/2016, 08/10/2014 Zoster Vaccines Completed 08/23/2018, 07/29, 06/22/2018, Additional history exists AAA SCREENING Completed 11/03/2019, 04/2020, 11/20/2016, Additional history exists RSV Immunizations Under 20 Months Aged Out 07/28/2023 No longer eligible based on patient's age to complete this topic COVID-19 Vaccine Completed 06/28/2024, , 08/21/2021, Additional history exists Influenza Adult Completed 06/28/2024, 06/29, 07/28/2021, Additional history exists Meningococcal Vaccine Aged Out No abel veena eligible based on patient's age to complete this topic Procedures Procedure Name Priority Date/Time Associated Diagnosis Comments NM PHARM NUC STRESS TEST 1DAY Routine 09/11/2024 9:47 AM PSYCHOLOGY TEACHER Dyspnea on exertion Coronary artery disease involving jamul coronary artery of jamul heart, unspecified whether angina present CARDIOLOGY STRESS TEST ONLY, EXERCISE Routine 09/11/2024 7:11 AM PSYCHOLOGY TEACHER Dyspnea on exertion Coronary artery disease involving jamul coronary artery of jamul heart, unspecified whether angina present Gastroesophageal reflux disease with esophagitis Atherosclerosis of coronary artery Asthma (HHS/HCC) Hyperlipidemia Chronic obstructive pulmonary disease (CMS/HCC HHS/HCC) Peripheral vascular disease (CMS/HCC) Dyslipidemia Chronic renal failure Carotid artery stenosis, unilateral Bilateral carotid artery stenosis Benign hypertension USE ECHOCARDIOGRAM Routine 08/26/2024 3: 19 PM CDT Dyspnea on exertion Coronary artery disease involving jamul coronary artery of jamul heart, unspecified whether angina present ECG GENERIC (SCAN ORDER) Routine 07/28/2024 LIPID PANEL Routine 01/26/2013 7:44 AM CDT from Last 3 Months or Most Recently Relevant to Health Maintenance Results * NM PHARM NUC STRESS TEST 1 DAY W TRACING (09/11/2024 9:47 AM PSYCHOLOGY TEACHER) Anatomical Region Laterality Modality Cardiac Nuclear Medicine 09/11/2024 7:32 AM PSYCHOLOGY TEACHER Narrative 09/11/2024 2:17 PM PSYCHOLOGY TEACHER ? Myocardial Perfusion Imaging ? Pat.Name: ??RACHELE ANDRADE.ID: ?[id number] ? St.Date: ?? 09/11/2024 ?Refer.MD: ??Migdalia ? Exam Time: 7:32:00 AM ? Study Type:VINNIE NC HT MUSCLE IMAGE SPECT MULTI Height: ?64 in ? Weight: ?141 lb ? BSA: ? 1.69 m2 ?Age: ??1950,73Y ? Sex: ? M ? Sonogrphr: Eve Gregory, PASTORAL COUNSELOR ? Pat. Stat.:Outpatient ? Reason for Study:Chest [...] MD - 09/11/2024 Myocardial Perfusion Imaging Pat.Name: RACHELE ANDRADE.ID: [id number] St.Date: 09/11/2024 Refer.KERRY Negron Exam Time: 7:32:00 AM Study Type:VINNIE NC HT MUSCLE IMAGE SPECT MULTI Height: 64 in Weight: 141 lb BSA: 1.69 m2 Age: 2 1950,73Y Sex: M Sonogrphr: Eve Gregory, [facility] Pat. Stat.:Outpatient Reason for Study:Chest pain, Shortness [...] Signature> 09/11/2024 02:17 PM Nicolas Brown M.D. us Nicolas Brown MD NUC MED Final Resul t * USE ECHOCARDIOGRAM (08/26/2024 3:19 PM CDT) Anatomical Region Laterality Modality Cardiac Echocardiogram 08/26/2024 2:41 PM CDT Narrative 08/26/2024 4:08 PM CDT ?Echocardiography Report Pat.Name: ??RACHELE ANDRADE.ID: ?[id number] ? St.Date: ?? 08/26/2024 ? Refer.MD: ??[id number] MICHELLE HOOD ? EWDPROV ?EWDPROV Exam Time: 2:41:00 PM ? Study Type:ECHO WITH CARDIAC DOPPLER COMP Height: ?64 in ? Weight: ?145 lb ? BSA: ? 1.71 m2 ?Age: ??1950,73Y ? Sex: ? M ? BP: ?132/82 ? Sonogrphr: Marlene Gomez RDCS ?? Pat. Stat.:Outpatient ? CPT - 4: ?[address] ? Reason for Study:Dyspnea on exertion Procedures: 2D, M-mode, Doppler, Color Flow, The study quality is technically adequate. Race: ?W ? ++++++++++++++++++++++++++++++++++++ SUMMARY: ++++++++++++++++++++++++++++++++++++ Left ventricle is normal in size with low normal systolic function Estimated EF of 50-55% Mild LVH Right ventricle is normal in size and systolic function No significant valve dysfunction. Unable to estimate pulmonary pressures ++++++++++++++++++++++++++++++++++++ FINDINGS: ++++++++++++++++++++++++++++++++++++ LV: ? The left ventricular size is normal. The left ventricular ?systolic function is lower limits of normal. Estimated left ?ventricular ejection fraction is 50-55%. Mild concentric ?left ventricular hypertrophy. WM: ? Wall motion appears normal in all segments. LVOT: ? The left ventricular outflow tract size is normal. RV: ? The right ventricular size is normal. Right ventricular ?systolic function is normal. TAPSE = 18.9mm (<16 mm ?indicates systolic RV dysfunction). IVS: ?No evidence of ventricular septal defect. LA: ? The left atrial volume is normal ( less than 34 ml/M2). RA: ? Right atrial size is normal. IAS: ?Atrial septum appears intact. DIANA: ? No evidence of pericardial effusion. AO: ? The aortic root measures 3.6 cm. The proximal ascending ?aorta measures 2.9cm. PA: ? Estimated right atrial pressure of 3 mmHg. SVn: ?Inferior vena cava is normal. Inferior vena cava shows >50% ?collapse with respiration consistent with normal right ?atrial pressure. AV: ? The aortic valve is trileaflet. No evidence of aortic valve ?stenosis. No evidence of aortic valve regurgitation. Mild ?calcification of aortic valve leaflets. MV: ? Trace mitral regurgitation. No evidence of mitral stenosis. ?Calcified posterior mitral annulus. There is mild prolapse ?of the anterior mitral valve leaflet(s). PV: ? No evidence of pulmonic valve stenosis. No evidence of ?pulmonic regurgitation. Pulmonic valve not well visualized. TV: ? Structurally normal tricuspid valve. A trace of tricuspid ?regurgitation. No evidence of tricuspid valve stenosis. ++++++++++++++++++++++++++++++++++++ MEASUREMENTS: ++++++++++++++++++++++++++++++++++++ ?DOPPLER LVOT ?? LVOTpkPG ? 4 mmHg ?LVOTmnPG ? 2 mmHg LVOTpkVel ? 96.4 cm/s (70-110)+ LVOT SV ? 55 ml ?? LVOT TVI ?17.6 cm ? AV Forward Flow AV TVI ?29.5 cm ?AV pkPG ? 11 mmHg AV pkVel ? 166 cm/s (100-170)+ Area (TVI) ?1.87 cm2 ??(3-5)* AV mnPG ?6 mmHg ?Area (Steven) ?1.82 cm2 ??(3- 5)* MV Forward Flow MV DeTm ?162 msec ?MV E/A ? 0.6 ? MVA P1/2t ? 4.68 cm2 ??(4-6) ?? MV pkE ?52.9 cm/s (60-130)* MV P1/2t ?47 msec (30-60)+ MV pkA ?90.1 cm/s PV Forward Flow PV pkVel ?87.8 cm/s (60-90)+ PV AC ? 62 msec PV pkPG ?3 mmHg ? TV Regurg Flow TV pkPG ? 21 mmHg ?TV pkVel ? 228 cm/s (30- 70)* TV Forward Flow TV pkE ?39.8 cm/s ? Lat E' ?? Lat e ? 8.49 cm/s ? Lat E/E' ?? Lat E/e ?6.2 ? Med E' ?? Med e ? 4.68 cm/s ? Med E/E' ?? Med E/e ? 11.3 ? Aortic Valve ?? Aortic Valve Ar ??1.09 ?Aortic Valve Ve ??0.58 ? PV Antegrade Flow Acceleration Sl ??1090 cm/s2 ? Right Atrium ?? Noguera's Disk ? 20 ? Right Ventricle ?? Right Ventricle ??12.4 cm/s ?2D Left Ventricle ?? LVIDd ? 3.64 cm ?? (3.6-5.2) LV ESV ?16.5 ml ?? LVIDs ? 2.44 cm ?? (2.3-3.9) LV ESV ?26.7 ml ?? LngAxd ?6.21 cm ?LVESV BP ?22 ml ?? LngAxd ?6.14 cm ?LV EF ? 63.8 % ?? LV EDV ?45.7 ml ?LV EF ? 60.3 % ?? LV EDV ?67.3 ml ?LV EF BP ?60.1 % ?? LVEDV BP ?55.1 ml ?LV SV ? 29.1 ml ?? LngAxs ?5.83 cm ?LV SV ? 40.6 ml ?? LngAxs ?5.19 cm ?LV SV BP ?33.1 ml ?? LVPW ?? LVPWd ? 1.24 cm ? Right Ventricle ?? RVIDd ? 2.77 cm ?? (2.6-4.3) Right Ventricle ??27.1 mm ?? Right Ventricle ??27.7 mm ? Right and Left ??0.761 ? Major Killdeer ?67.6 mm ? Ventricular Septum ?? IVSd ?1.24 cm ? Left Atrium ?? LA VOLBP ?34.9 ml ? Aorta ?? Ao Rtd ? 3.6 cm ?? (zsc 3.2)* Ao Asc ? 2.9 cm ?? (zsc 2.2)* LVOT ?? LVOT ? 2 cm ?LVOTArea ?3.14 cm2 Ratios ?? IVS LA Biplane LAVol I BP ?20.4 ml/m2 ? RA Single Plane Right Atrium MO ??9.53 mm ? Right Atrium Sy ??17.9 ml ?? Right Atrium Sy ??38.9 mm ? Right Atrium Sy ??10.5 ml/m2 Right Atrium Sy ?? 9.1 cm2 ?MMODE Ratios ?? LA/Ao ?0.667 ?(0.87-1.1)* Aorta ?? Ao Rt ?3.3 cm ?? (2-3.7) Left Atrium ?? LAIDs ?2.2 cm ? TA ?? Tricuspid Annul ??18.9 mm ? <Electronic Signature> 08/26/2024 04:08 PM Nicolas Brown M.D. Procedure Note Nicolas Brown MD - 08/26/2024 Echocardiography Report Pat.Name: RACHELE ANDRADE.ID: [id number] St.Date: 08/26/2024 Refer: [id number] MICHELLE HOOD EWDPROV EWDPROV Exam Time: 2:41:00 PM Study Type:ECHO WITH CARDIAC DOPPLER COMP Height: 64 in Weight: 145 lb BSA: 1.71 m2 Age: 2 1950,73Y Sex: M BP: 132/82 Sonogrphr: Marlene Gomez [facility] Pat. Stat.:Outpatient CPT - 4: 71421 Reason for Study:Dyspnea on exertion Procedures: 2D, M-mode, Doppler, Color Flow, The study quality is technically adequate. Race: W ++++++++++++++++++++++++++++++++++++ SUMMARY: ++++++++++++++++++++++++++++++++++++ Left ventricle is normal in size with low normal systolic function Estimated EF of 50-55% Mild LVH Right ventricle is normal in size and systolic function No significant valve dysfunction. Unable to estimate pulmonary pressures ++++++++++++++++++++++++++++++++++++ FINDINGS: ++++++++++++++++++++++++++++++++++++ LV: The left ventricular size is normal. The left ventricular systolic function is lower limits of normal. Estimated left ventricular ejection fraction is 50-55%. Mild concentric left ventricular hypertrophy. WM: Wall motion appears normal in all segments. LVOT: The left ventricular outflow tract size is normal. RV: The right ventricular size is normal. Right ventricular systolic function is normal. TAPSE = 18.9mm (<16 mm indicates systolic RV dysfunction). IVS: No evidence of ventricular septal defect. LA: The left atrial volume is normal ( less than 34 ml/M2). RA: Right atrial size is normal. IAS: Atrial septum appears intact. DIANA: No evidence of pericardial effusion. AO: The aortic root measures 3.6 cm. The proximal ascending aorta measures 2.9cm. PA: Estimated right atrial pressure of 3 mmHg. SVn: Inferior vena cava is normal. Inferior vena cava shows >50% collapse with respiration consistent with normal right atrial pressure. AV: The aortic valve is trileaflet. No evidence of aortic valve stenosis. No evidence of aortic valve regurgitation. Mild calcification of aortic valve leaflets. MV: Trace mitral regurgitation. No evidence of mitral stenosis. Calcified posterior mitral annulus. There is mild prolapse of the anterior mitral valve leaflet(s). PV: No evidence of pulmonic valve stenosis. No evidence of pulmonic regurgitation. Pulmonic valve not well visualized. TV: Structurally normal tricuspid valve. A trace of tricuspid regurgitation. No evidence of tricuspid valve stenosis. ++++++++++++++++++++++++++++++++++++ MEASUREMENTS: ++++++++++++++++++++++++++++++++++++ DOPPLER LVOT LVOTpkPG 4 mmHg LVOTmnPG 2 mmHg LVOTpkVel 96.4 cm/s (70-110)+ LVOT SV 55 ml LVOT TVI 17.6 cm AV Forward Flow AV TVI 29.5 cm AV pkPG 11 mmHg AV pkVel 166 cm/s (100-170)+ Area (TVI) 1.87 cm2 (3-5)* AV mnPG 6 mmHg Area (Steven) 1.82 cm2 (3-5)* MV Forward Flow MV DeTm 162 msec MV E/A 0.6 MVA P1/2t 4.68 cm2 (4-6) MV pkE 52.9 cm/s (60-130)* MV P1/2t 47 msec (30-60)+ MV pkA 90.1 cm/s PV Forward Flow PV pkVel 87.8 cm/s (60-90)+ PV AC 62 msec PV pkPG 3 mmHg TV Regurg Flow TV pkPG 21 mmHg TV pkVel 228 cm/s (30-70)* TV Forward Flow TV pkE 39.8 cm/s Lat E' Lat e 8.49 cm/s Lat E/E' Lat E/e 6.2 Med E' Med e 4.68 cm/s Med E/E' Med E/e 11.3 Aortic Valve Aortic Valve Ar 1.09 Aortic Valve Ve 0.58 PV Antegrade Flow Acceleration Sl 1090 cm/s2 Right Atrium Noguera's Disk 20 Right Ventricle Right Ventricle 12.4 cm/s 2D Left Ventricle LVIDd 3.64 cm (3.6-5.2) LV ESV 16.5 ml LVIDs 2.44 cm (2.3-3.9) LV ESV 26.7 ml LngAxd 6.21 cm LVESV BP 22 ml LngAxd 6.14 cm LV EF 63.8 % LV EDV 45.7 ml LV EF 60.3 % LV EDV 67.3 ml LV EF BP 60.1 % LVEDV BP 55.1 ml LV SV 29.1 ml LngAxs 5.83 cm LV SV 40.6 ml LngAxs 5.19 cm LV SV BP 33.1 ml LVPW LVPWd 1.24 cm Right Ventricle RVIDd 2.77 cm (2.6-4.3) Right Ventricle 27.1 mm Right Ventricle 27.7 mm Right and Left 0.761 Major Killdeer 67.6 mm Ventricular Septum IVSd 1.24 cm Left Atrium LA VOLBP 34.9 ml Aorta Ao Rtd 3.6 cm (zsc 3.2)* Ao Asc 2.9 cm (zsc 2.2)* LVOT LVOT 2 cm LVOTArea 3.14 cm2 Ratios IVS LA Biplane LAVol I BP 20.4 ml/m2 RA Single Plane Right Atrium MO 9.53 mm Right Atrium Sy 17.9 ml Right Atrium Sy 38.9 mm Right Atrium Sy 10.5 ml/m2 Right Atrium Sy 9.1 cm2 MMODE Ratios LA/Ao 0.667 (0.87-1.1)* Aorta Ao Rt 3.3 cm (2-3.7) Left Atrium LAIDs 2.2 cm TA Tricuspid Annul 18.9 mm <Electronic Signature> 08/26/2024 04:08 PM Nciolas Brown M.D. us Nicolas Brown MD ECHO Final Resul t * ECG (07/28/2024) us Doc Pccl Scanned SCANNING Final Result [facility] * LIPID PANEL (01/26/2013 7:44 AM CDT) CHOLESTEROL 130 <200 MG/DL [facility] P TO EPIC CONVERSION TRIGLYCERIDES 53 <150 MG/DL [facility] OUP TO EPIC CONVERSION HDL 68 >60 MG/DL [facility] T O EPIC CONVERSION Comment:AN HDL OF >60 IS NO RISK, RISK IS DEFINED <40 LDL (CALCULATED) 51 <100 MG/DL ME D[facility] TO EPIC CONVERSION Comment: AN LDL OF <100 IS OPTIMAL, ELEVATED IS DEFINED >130 BY CURRENT GUIDELINES, LDL GOALS ARE DEPENDENT UPON OTHER RISK FACTORS 01/26/2013 7:44 AM CDT 01/26/2013 7:44 AM CDT Narrative [facility] TO EPIC CONVERSION - 01/26/2013 7:44 AM CDT [AUTO]: This test was reviewed. Aneudy Jaeger MD LABORATORY Final Result [facility] TO EPIC CONVERSION from Last 3 Months or Most Recently Relevant to Health Maintenance Insurance HUMANA HUMANA Care Teams Office Machine Mechanic Relationship Specialty Start Date End Date Nickie Negron MD [address] [phone] PCP - General INTERNAL MEDICINE 08/26/24
--- OUTSIDE RECORDS SUMMARY | 2024-10-27 10:47 | XMS_ITS | Encounter Summary ---
Author Organization [facility] Address [address] [place] [address]. [place] [address] [place] [address] Care Team Providers Care Vp Research Name Role Phone Aneudy Jaeger MD Primary Care Provider [phone] Reason for Visit * Reason Comments Injection * Injection (Routine) - Closed Specialty Diagnoses / Procedures Referred By Contac t Referred To Contact [facility] Infusion Therapy Diagnoses M81.0 Procedures INJ,DENOSUMAB,1 MG (XGEVA,PROLIA) INFUSION [facility] [place] [address] Phone: tel: fax: [facility] [place] [address] Phone: tel: fax: Referral ID Status Reason Start Date Expiration Date Visits Re quested Visits Authorized [id number] Closed 01/20/2021 2 2 Encounter Details Date Type Department Care Team (Late st Contact Info) Description 01/30/2021 9:00 AM CDT Treatment [facility] [place] [address] Nickie Negron MD [address] [place] [address] Injection Social History Tobacco Use [...] have Coronavirus / COVID-19? No / Unsure 01/30/2021 8:39 AM CDT documented as of this encounter Last Filed Vital Signs Vital Sign Reading Time Taken Comments Blood Pressure 138/85 01/30/2021 9:13 AM CDT Pulse 75 01/30/2021 9:13 AM CDT Temperature 36.7 ??C (98.1 ??F) 01/30/2021 9:13 AM CD T Respiratory Rate 20 01/30/2021 9:13 AM CDT Oxygen Saturation 100% 01/30/2021 9:13 AM CDT Inhaled Oxygen Concentration - - Weight 56.9 kg (125 lb 7.1 oz) 01/30/2021 8:31 A M CDT Height 162.6 cm (5' 4 ) 01/30/2021 8:31 AM CDT Body Mass Index 21.53 01/30/2021 8:31 AM CDT documented in this encounter Progress Notes * Narcisa Eddy RN - 01/30/2021 9:00 AM CDT Pt tolerated prolia sq well with out complications. documented in this encounter Plan of Treatment Upcoming Encounters Date Type Department Care Team (Late st Contact Info) Description 03/02/2025 11:00 AM CDT Appointment [facility] [place] [address] Nickie Negron MD [address] [place] [address] [address] [place] [address] 04/07/2025 12:30 PM CDT Office Visit [facility] [place] [facility] [address] [place] [address] Nicolas Brown MD Three [facility] [address] [place] [address] documented as of this encounter Visit Diagnoses Diagnosis Osteoporosis- Primary Osteoporosis, unspecified documented in this encounter Administered Medications Inactive Administered Medications - up to 3 most recent administrations Medication Order MAR Action Action Date Dose Rate Site denosumab (PROLIA) injection 60 mg 60 mg, Subcutaneous, Once, 1 dose, On Sat01/30/21 at 0845Indications:Osteoporosis Given 01/30/2021 9:01 AM CDT 60 mg Left Arm documented in this encounter Care Teams Vp Research Relationship Specialty Start Date End Date Aneudy Jaeger MD PCP - General 08/26/14 08/25/24 documented as of this encounter
--- OUTSIDE RECORDS SUMMARY | 2024-10-27 10:47 | XMS_ITS | Encounter Summary ---
Author Organization [facility] Address [address] [place] [address]. [place] [address] [place] [address] Care Team Providers Care Retort Firer Name Role Phone Bashir Son MD Primary Care Provider [phone] Reason for Referral * Imaging (Routine) - Closed Specialty Diagnoses / Procedures Referred By Carolynac t Referred To Contact RADIOLOGY Diagnoses Dyspnea on exertion CAD (coronary artery disease) Procedures USE ECHOCARDIOGRAM Nicolas Brown MD [facility]. [address] [address] Phone: tel: fax: Referral ID Status Reason Start Date Expiration Date Visits Re quested Visits Authorized [id number] Closed 08/26/2024 08/26/2024 1 1 * Imaging (Routine) - Closed Specialty Diagnoses / Procedures Referred By Contac t Referred To Contact RADIOLOGY Diagnoses Dyspnea on exertion CAD (coronary artery disease) Procedures NM PHARM NUC STRESS TEST 1 DAY W TRACING Nicolas Brown MD [facility]. [place] [address] [place] [address] Phone: tel: fax: Referral ID Status Reason Start Date Expiration Date Visits Re quested Visits Authorized [id number] Closed 09/11/2024 09/11/2024 1 1 * Procedure (Routine) - New Request Specialty Diagnoses / Procedures Referred By Contac t Referred To Contact Diagnoses Dyspnea on exertion CAD (coronary artery disease) Procedures CARDIOLOGY STRESS TEST ONLY, EXERCISE Nicolas Brown MD [facility]. [address] [address] Phone: tel: fax: Referral ID Status Reason Start Date Expiration Date V isits Requested Visits Authorized [id number] New Request 08/12/2024 08/12/2025 1 1 Reason for Visit * Reason Comments Coronary Artery Disease New Consult Lipids Encounter Details Date Type Department Care Team (Late st Contact Info) Description 08/12/2024 9:15 AM CDT Office Visit Sim [facility] [facility] THREE [facility], [address] [id number] Nicolas Brown MD [facility]. [address] [id number] Coronary Artery Disease (New Consult ); Lipids Social History Tobacco Use Types Packs/Day Years [...] Sign Reading Time Taken Comments Blood Pressure 132/70 08/12/2024 9:27 AM CDT Pulse 83 08/12/2024 9:27 AM CDT Temperature - - Respiratory Rate - - Oxygen Saturation 100% 08/12/2024 9:27 AM CDT Inhaled Oxygen Concentration - - Weight 65.8 kg (145 lb) 08/12/2024 9:27 AM CDT Height 162.6 cm (5' 4 ) 08/12/2024 9:27 AM CDT Body Mass Index 24.89 08/12/2024 9:27 AM CDT documented in this encounter Patient Instructions * Patient Instructions* Nicolas Brown MD - 08/12/2024 9:15 AM CDT Images from the original note were not included. Patient Education Patient Education Mediterranean Diet About this topic This is a heart healthy diet. It is based on widely used foods and cooking styles from many countries around the [place] Sea. The main pattern for the diet is more plant foods and monounsaturated fats, or good fats, like olive oil. Protein in this diet comes from seafood, legumes, nuts, seeds, and poultry and eggs in lowered amounts. You will also eat more whole grains, vegetables, and fruits and moderate amounts of alcohol are also included. This diet has less red meats, dairy products, and processed foods. What will the results be? Your diet will have less saturated fat, cholesterol, calories, sodium, and added sugars. Your diet will be higher in fiber. This will help to keep your blood sugar steady. This diet lowers the chanceof heart disease and other health problems. What lifestyle changes are needed? If you do not often eat this way, you will need to change your eating habits. Be sure to get regular exercise. It is believed to help the health benefits of this diet. What changes to diet are needed? You may need to limit the amount of red meat and processed foods in your diet. Ask your dietitian for help planning meals that are right for you. What foods are good to eat? Plenty of fish and other seafood Fresh, frozen, or canned fruits and vegetables Nuts and nut butters and dried beans, lentils, or peas Foods high in fiber like whole grains and whole grain products [place] oil (good fat), peanut or canola oil, margarine, or spreads that list vegetable oil as the first ingredient and do not contain trans fat or partially hydrogenated oil Small amounts of poultry and eggs What foods should be limited or avoided? Red meats Sweets, desserts, and processed foods Butter, oils, and fats that contain trans fats or are hydrogenated or partially hydrogenated Gravies and sauces What problems could happen? Your weight may rise because your diet will be higher in fat from olive oil and nuts. You may have lower iron levels. Be sure to eat foods rich in iron. Also, eat foods rich in vitamin C. This will help your body take in iron. You may have lower calcium levels because you are eating less dairy products. Ask your doctor if you need to take a calcium supplement. Wine is often thought of as part of a Mediterranean diet. It is not needed and you may choose not to include it. Avoid wine if you are prone to alcohol abuse or are . Also, avoid it if you are at risk for breast cancer, have liver problems, or have other illnesses that make it important foryou to not have alcohol. When do I need to call the doctor? If you have any concerns about your diet Last Reviewed Date 2021-08-07 Consumer Information Use and Disclaimer This generalized information is a limited summary of diagnosis, treatment, and/or medication information. It is not meant to be comprehensive and should be used as a tool to help the user understand and/or assess potential diagnostic and treatment options. It does NOT include all information about conditions, treatments, medications, side effects, or risks that may apply to a specific patient. Itis not intended to be medical advice or a substitute for the medical advice, diagnosis, or treatment of a health care provider based on the health care provider's examination and assessment of a patient???s specific and unique circumstances. Patients must speak with a health care provider for complete information about their health, medical questions, and treatment options, including any risks orbenefits regarding use of medications. This information does not endorse any treatments or medications as safe, effective, or approved for treating a specific patient. [employer] and its affiliates disclaim any warranty or liability relating to this information or the use thereof. The use of this information is governed by the Terms of Use, available at https://www.woltersCrunchfishuwer.com/en/know/tgiafwfs-pnwbpuehjpdnl-tadfc Copyright Copyright ?? 2023 [employer] and its affiliates and/or licensors. All rights reserved. documented in this encounter Progress Notes * Nicolas Brown MD - 08/12/2024 9:15 AM CDT Reason for Visit: Coronary Artery Disease (New Consult ) and Lipids History of Present Illness: Rachele Andrade is a 73-year-old male with a past medical history of hypertension, hyperlipidemia, PAD s/p L iliac POBA and coronary artery disease s/p PCI here today for initial evaluation of CP. Patient with significant dementia, accompanied by family. Had PCI to RCA, I think, in 2016. Patient has been having chest pain, but given dementia hard to get accurate history. Was in [facility] ED for this a couple weeks ago, troponin and EKG benign. Sent here for further followup. Not very active at baseline, uses walker. States he does remember getting some CP, substernal, no radiations, may be getting more frequent . No new palpitations, orthopnea, or claudication. Tolerating medications well. Labs: Lab Results Component Value Date/Time CHOL 130 01/26/2013 07:44 AM HDL 68 01/26/2013 07:44 AM LDL 51 01/26/2013 07:44 AM TRI 53 01/26/2013 07:44 AM CR 0.9 01/26/2013 07:44 AM Data Reviewed: LHC (2016) - [facility] - RCA with 85% prox lesion, no other significant CAD seen. Presumably PCI to RCA, but no notes to back this up Echo (2016) - [facility] - no significant valve disease, normal EF Recommendations and Plan: CP/CAD - some typical sounding components. Will trial imdur and see if it helps. Warned about LOBO/hypotension.Will get antwan nuc stress and echo to work up further. If symptoms resolve with imdur may not pursue cath given frailty/memory problems. Patient, family in agreement. Continue DAPT, statin. HTN - well controlled HL - will eventually need new lipid panel. Will discuss after we have done workup for CP PAD - could consider stopping plavix given use of pletal/DAPT. No complaints of claudication right now. Follow up after above testing. Medications: Current Outpatient Medications: buPROPion XL (WELLBUTRIN XL) 150 MG 24 hr tablet, every morning., Disp: , Rfl: calcium carbonate (OS-RADHA) 1500 (600 Ca) MG tablet, Take 1 tablet every day by oral route in the morning., Disp: , Rfl: carvedilol (COREG) 3.125 MG tablet, 2 (two) times daily., Disp: , Rfl: cholestyramine (QUESTRAN) 4 GM/DOSE powder, Take 1 packet (4 g total) by mouth., Disp: , Rfl: cilostazol (PLETAL) 50 MG tablet, 2 (two) times daily., Disp: , Rfl: clopidogrel (PLAVIX) 75 MG tablet, daily., Disp: , Rfl: folic acid (FOLVITE) 1 MG tablet, daily., Disp: , Rfl: isosorbide mononitrate ER (IMDUR) 30 MG 24 hr tablet, Take 0.5 tablets (15 mg total) by mouth daily., Disp: 15 tablet, Rfl: 3 levothyroxine (SYNTHROID) 175 MCG tablet, Take 1 tablet (175 mcg total) by mouth daily., Disp: , Rfl: lidocaine (AKTEN) 3.5 % Gel ophthalmic gel, as needed., Disp: , Rfl: mesalamine EC (ASACOL HD) 800 MG tablet, 2 (two) times a day., Disp: , Rfl: Multiple Vitamins-Minerals (DAILY MULTI) Tab, Take by mouth daily., Disp: , Rfl: pantoprazole EC (PROTONIX) 20 MG tablet, daily., Disp: , Rfl: pravastatin (PRAVACHOL) 10 MG tablet, nightly at bedtime., Disp: , Rfl: sodium bicarbonate 650 MG tablet, Take 1 tablet (650 mg total) by mouth 3 (three) times daily., Disp: , Rfl: tiZANidine (ZANAFLEX) 4 MG tablet, Take 1 tablet (4 mg total) by mouth every 6 (six) hours as needed., Disp: , Rfl: acetaminophen (TYLENOL) 500 MG tablet, Take 1 tablet (500 mg total) by mouth., Disp: , Rfl: albuterol sulfate HFA 108 (90 Base) MCG/ACT inhaler, INHALE 2 PUFFS BY MOUTH EVERY 8 HOURS NEEDED, Disp: , Rfl: ASPIRIN LOW DOSE 81 MG tablet, Take 1 tablet (81 mg total) by mouth daily., Disp: , Rfl: Cyanocobalamin 5000 MCG SL Tab, daily., Disp: , Rfl: denosumab (PROLIA) 60 MG/ML injection, Inject 1 mL (60 mg total) into the skin every 6 (six) months., Disp: , Rfl: diclofenac sodium (VOLTAREN) 1 % gel, APPLY 2 GRAMS TOPICALLY TO THE AFFECTED AREA FOUR TIMES DAILY, Disp: , Rfl: fluticasone propionate (FLONASE) 50 MCG/ACT nasal spray, SHAKE LIQUID AND USE 1 SPRAY IN EACH NOSTRIL EVERY DAY, Disp: , Rfl: iron polysaccharides (NIFEREX) 150 MG capsule, Take by mouth every other day., Disp: , Rfl: Multiple Vitamins-Minerals (PRESERVISION AREDS) capsule, daily., Disp: , Rfl: triamcinolone (KENALOG) 0.1 % cream, APPLY TOPICALLY TO THE AFFECTED AREA OF FEET TWICE DAILY, Disp: , Rfl: vitamin D3 (CHOLECALCIFEROL) 125 mcg Tab, daily., Disp: , Rfl: Review of patient's allergies indicates: Allergen Reactions Gluten Meal Other (see comment) wheat Lactose GI Upset Past Medical History: Diagnosis Date Arthritis Asthma ([facility]) 08/16/2017 Atherosclerosis of coronary artery 02/27/2016 Chronic disease Chronic obstructive pulmonary disease ([facility]) 08/11/2024 History of blood transfusion Hypertension Past Surgical History: Procedure Laterality Date ABDOMINAL SURGERY remove part of large and small intestine ANGIOPLASTY / STENTING FEMORAL APPENDECTOMY COLON SURGERY removed part of the small and large intestine EYE SURGERY right eye FRACTURE SURGERY pin in the Left hip JOINT REPLACEMENT left hip pin placement REPAIR HEART WOUND 2 stents in the heart TONSILLECTOMY Social History Tobacco Use Smoking status: Former Types: Cigarettes Smokeless tobacco: Never Substance Use Topics Alcohol use: Not Currently Drug use: Never No family history on file. No family status information on file. Review of Systems Constitutional: Negative for recent unintentional weight gain, recent unintentional weight loss andnew or significant fatigue. HENT: Negative for new or significant hearing loss. Eyes: Negative for blurred vision and double vision. Respiratory: Negative for cough, new or significant shortness of breath and snoring. Cardiovascular: See HPI. Positive for chest pain. Negative for palpitations. Gastrointestinal: Negative for blood in stool and melena. Genitourinary: Negative for dysuria. Musculoskeletal: Negative for myalgias and new or worsening joint stiffness/pain. Skin: Negative for rash. Neurological: Negative for tingling/numbness and focal weakness. Endo/Heme/Allergies: Negative for new or significant bruising/bleeding and polydipsia. Psychiatric/Behavioral: Negative for depression and new or significant memory loss. Vitals: 08/12/24 0927 BP: 132/70 Pulse: 83 Weight: 65.8 kg (145 lb) Height: 1.626 m (5' 4 ) Body mass index is 24.89 kg/m??. Cardiac Exam Rate/Rhythm: Normal rate and regular rhythm. PMI: PMI is not displaced. Pulses: Normal pulses. Dorsalis pedis pulses are 2+ on the right side and 2+ on the left side. Heart Sounds: Normal heart sounds. Normal S1 sounds. Normal S2 sounds. No gallop present. No S3. NoS4. Murmurs: Edema left: 0. Edema Right: 0. Physical Exam Constitutional: No distress. Healthy Appearance. HENT: Oropharynx clear. Eyes: Pupils equal, round, and reactive to light. Conjunctivae normal. Neck: Neck supple. No JVD. Abdomen: Abdomen soft. Bowel sounds normal. No distension. No tenderness. Pulmonary: Effort normal. Breath sounds normal. Skin: No rash. No cyanosis. No clubbing. No xanthoma. Musculoskeletal: No kyphosis. Normal ROM. Neurological: Alert. Oriented x 3. Appropriate mood and affect. Normal motor skills. Normal gait. Comments: Diagnoses/Impression: 1. Dyspnea on exertion CARDIOLOGY STRESS TEST ONLY, EXERCISE NM PHARM NUC STRESS TEST 1 DAY W TRACING USE ECHOCARDIOGRAM 2. CAD (coronary artery disease) CARDIOLOGY STRESS TEST ONLY, EXERCISE NM PHARM NUC STRESS TEST 1 DAY W TRACING USE ECHOCARDIOGRAM 3. Chest pain, unspecified type 4. Peripheral vascular disease (CMS/HCC) 5. Benign hypertension Referring Provider: No ref. provider found PCP: BASHIR SON MD documented in this encounter Plan of Treatment Upcoming Encounters Date Type Department Care Team (Late st Contact Info) Description 03/02/2025 11:00 AM CDT Appointment [facility] [place] [address] Nickie Negron MD [address] [place] [address] [address] [place] [address] 04/07/2025 12:30 PM CDT Office Visit [facility] [place] [facility], [facility] [address] [place] [address] Nicolas Brown MD [facility]. [address] [address] Scheduled Orders Name Type Priority Associated Diagnoses Orde r Schedule CARDIOLOGY STRESS TEST ONLY, EXERCISE Cardiac Services Routine Dyspnea on exertion Coronary artery disease involving unga coronary artery of unga heart, unspecified whether angina present Expected: 08/12/2024 (Approximate), Expires: 08/12/2025 documented as of this encounter Results * NM PHARM NUC STRESS TEST 1 DAY W TRACING (09/11/2024 9:47 AM CARBONIZER) Anatomical Region Laterality Modality Cardiac Nuclear Medicine 09/11/2024 7:32 AM CARBONIZER Narrative 09/11/2024 2:17 PM CARBONIZER ? Myocardial Perfusion Imaging ? Pat.Name: ??RACHELE ANDRADE.ID: ?[id number] ? St.Date: ?? 09/11/2024 ?Refer.MD: ??Migdalia ? Exam Time: 7:32:00 AM ? Study Type:VINNIE NC HT MUSCLE IMAGE SPECT MULTI Height: ?64 in ? Weight: ?141 lb ? BSA: ? 1.69 m2 ?Age: ??1950,73Y ? Sex: ? M ? Sonogrphr: Eve Gregory, BLENDER ? Pat. Stat.:Outpatient ? Reason for Study:Chest [...] 09/11/2024 Myocardial Perfusion Imaging Pat.Name: RACHELE ANDRADE.ID: [id number] St.Date: 09/11/2024 Refer.MD: Migdalia Exam Time: 7:32:00 AM Study Type:VINNIE NC HT MUSCLE IMAGE SPECT MULTI Height: 64 in Weight: 141 lb BSA: 1.69 m2 Age: 2 1950,73Y Sex: M Sonogrphr: RODRIGUEZ MercadoMT Pat. Stat.:Outpatient Reason for Study:Chest pain, Shortness [...] 4:08 PM CDT ?Echocardiography Report Pat.Name: ??RACHELE ANDRADE ANDREINALivia.ID: ?[id number] ? St.Date: ?? 08/26/2024 ? Refer.MD: ??[id number] MICHELLE HARPER HOOD ? EWDPROV ?EWDPROV Exam Time: 2:41:00 PM ? Study Type:ECHO WITH CARDIAC DOPPLER COMP Height: ?64 in ? Weight: ?145 lb ? BSA: ? 1.71 m2 ?Age: ??1950,73Y ? Sex: ? M ? BP: ?132/82 ? Sonogrphr: Marlene Gomez RDCS ?? Pat. Stat.:Outpatient ? CPT - 4: ?23054 ? Reason for Study:Dyspnea on exertion Procedures: [...] ? Right and Left ??0.761 ? Major Curtiss ?67.6 mm ? Ventricular Septum ?? IVSd [...] PM Nicolas Brown M.D. Procedure Note Nicolas Brwon MD - 08/26/2024 Echocardiography Report Pat.Name: RACHELE ANDRADE.ID: [id number] St.Date: 08/26/2024 Refer.MD: [id number] MICHELLE HOOD EWDPROV EWDPROV Exam Time: 2:41:00 PM Study Type:ECHO WITH CARDIAC DOPPLER COMP Height: 64 in Weight: 145 lb BSA: 1.71 m2 Age: 2 1950,73Y Sex: M BP: 132/82 Sonogrphr: Marlene Gomez [facility] Pat. Stat.:Outpatient CPT - 4: 07999 Reason for Study:Dyspnea on exertion Procedures: 2D, [...] 27.7 mm Right and Left 0.761 Major Curtiss 67.6 mm Ventricular Septum IVSd 1.24 cm [...] 18.9 mm <Electronic Signature> 08/26/2024 04:08 PM Nicolas Brown M.D. us Nicolas Brown MD ECHO Final Resul t documented in this encounter Visit Diagnoses Diagnosis Dyspnea on exertion- Primary Other dyspnea and respiratory abnormality Coronary artery disease involving unga coronary artery of unga heart, unspecified whether angina present Chest pain, unspecified type Peripheral vascular disease (CMS/HCC) Peripheral vascular disease, unspecified Benign hypertension Essential hypertension, benign Dyspnea on exertion Other dyspnea and respiratory abnormality Coronary artery disease involving unga coronary artery of unga heart, unspecified whether angina present Coronary artery disease involving unga coronary artery of unga heart, unspecified whether angina present- Primary Dyspnea on exertion Other dyspnea and respiratory abnormality Gastroesophageal reflux disease with esophagitis Atherosclerosis of coronary artery Coronary atherosclerosis of unspecified type of vessel, unga or graft Asthma (HHS/HCC) Unspecified asthma Hyperlipidemia Other and unspecified hyperlipidemia Chronic obstructive pulmonary disease (CMS/HCC HHS/HCC) Chronic airway obstruction, not elsewhere classified Peripheral vascular disease (CMS/HCC) Peripheral vascular disease, unspecified Dyslipidemia Other and unspecified hyperlipidemia Chronic renal failure Chronic kidney disease, unspecified Carotid artery stenosis, unilateral Occlusion and stenosis of carotid artery without mention of cerebral infarction Bilateral carotid artery stenosis Occlusion and stenosis of multiple and bilateral precerebral arteries without mention of cerebral infarction Benign hypertension Essential hypertension, benign documented in this encounter Care Teams Retort Firer Relationship Specialty Start Date End Date Bashir Son MD PCP - General 08/26/14 08/25/24 documented as of this encounter
--- OUTSIDE RECORDS SUMMARY | 2024-10-27 10:47 | XMS_ITS | Encounter Summary ---
Author Organization [facility] Address [address] [place] [address]. [place], [place] [address] [place] [address] Care Team Providers Care Director Of Sports Medicine Name Role Phone Aneudy Jaeger MD Primary Care Provider [phone] Encounter Details Date Type Department Care Team (Late Contact Info) Description 05/21/2024 Orders Only [facility] [address] Nickie Negron MD [address] [place] [address] Social History Tobacco Use Types [...] Info) Description 03/02/2025 11:00 AM CDT Appointment [facility] [place] [address] Nickie Negron MD [address] [place] [address] 04/07/2025 12:30 PM CDT [facility] [address] [address] Nicolas Brown MD Three [facility] [place] [address] [place] [address] documented as of this encounter Visit Diagnoses Diagnosis Osteoporosis- Primary Osteoporosis, unspecified documented in this encounter Care Teams Director Of Sports Medicine Relationship Specialty Start Date End Date Aneudy Jaeger MD PCP - General 08/26/14 08/25/24 documented as of this encounter
--- OUTSIDE RECORDS SUMMARY | 2024-10-27 10:47 | XMS_ITS | Encounter Summary ---
Author Organization [facility] Address [address] [place] [address]. [place], [place] [address] [place] [address] Care Team Providers Care Steerer Name Role Phone Aneudy Jaeger MD Primary Care Provider [phone] Encounter Details Date Type Department Care Team (Late Contact Info) Description 07/28/[address] [id number] Scanned, Doc Pccl Social History Tobacco Use Types Packs/Day Years [...] Description 03/02/2025 11:00 AM CDT Appointment [facility] [place] [address] Nickie Negron MD [facility] [address] [place] [address] 04/07/2025 12:30 PM CDT Office Visit [facility], [address] [phone] Nicolas Brown MD [facility]. [address] [phone] documented as of this encounter Procedures Procedure Name Priority Date/Time Associated Diagnosis Comments ECG GENERIC (SCAN ORDER) Routine 07/28/2024 documented in this encounter Results * ECG (07/28/2024) us Doc Pccl Scanned SCANNING Final Result [facility] documented in this encounter Visit Diagnoses Not on filedocumented in this encounter Care Teams Steerer Relationship Specialty Start Date End Date Aneudy Jaeger MD PCP - General 08/26/14 08/25/24 documented as of this encounter
--- OUTSIDE RECORDS SUMMARY | 2024-10-27 10:47 | XMS_ITS | Encounter Summary ---
Author Organization [facility] Address [address] [place] [address]. [place] [address] [place] [address] Care Team Providers Care Composition Tile Layer Name Role Phone Aneudy Jaeger MD Primary Care Provider [phone] Reason for Visit * Reason Comments Injection * Treatment/Therapy Plan Authorization (Routine) - Authorized Specialty Diagnoses / Procedures Referred By Contac t Referred To Contact Diagnoses Osteoporosis Procedures INJ,DENOSUMAB,1 MG (XGEVA,PROLIA) [facility] [place] [address] Phone: tel: fax: [facility] [place] [address] Phone: tel: fax: Referral ID Status Reason Start Date Expiration Date Visits Requested Visits Authorized [id number] Authorized Medication 01/09/2024 03/27/2024 1 1 Encounter Details Date Type Department Care Team (Late st Contact Info) Description 02/21/2024 1:30 PM CDT Treatment [facility] Infusion Services [place], [place] [phone] Nickie Negron MD [address] [place] [address] Injection Social History Tobacco Use Types Packs/Day Years Used Date Smoking Tobacco: Never Assessed Sex and Gender Information Value Date Recorded Sex Assigned at Not on file Legal Sex Male 4:24 PM CDT Gender Identity Not on file Sexual Orientation Not on file documented as of this encounter Last Filed Vital Signs Vital Sign Reading Time Taken Comments Blood Pressure 136/76 02/21/2024 1:58 PM CDT Pulse 95 02/21/2024 1:58 PM CDT Temperature 36.4 ??C (97.5 ??F) 02/21/2024 1:58 PM CD T Respiratory Rate 16 02/21/2024 1:58 PM CDT Oxygen Saturation 100% 02/21/2024 1:58 PM CDT Inhaled Oxygen Concentration - - Weight - - Height - - Body Mass Index - - documented in this encounter Progress Notes * Jennifer Lima RN - 02/21/2024 1:30 PM CDT Patient tolerated Prolia injection without complications. VS stable at appointment. Future appointments in place and patient given appointment reminder. Patient ambulatory upon discharge from infusion center. documented in this encounter Plan of Treatment Upcoming Encounters Date Type Department Care Team (Late st Contact Info) Description 03/02/2025 11:00 AM CDT Appointment [facility] Outpatient [place] [address] Nickie Negron MD [address] [place] [address] 04/07/2025 12:30 PM CDT Office Visit [facility] THREE [facility], [address] [phone] Nicolas Brown MD Three [facility]. [address] [phone] documented as of this encounter Visit Diagnoses Diagnosis Osteoporosis- Primary Osteoporosis, unspecified documented in this encounter Administered Medications Inactive Administered Medications - up to 3 most recent administrations Medication Order MAR Action Action Date Dose Rate Site denosumab (PROLIA) injection 60 mg 60 mg, Subcutaneous, Once, 1 dose, On Sat02/21/24 at 1345Indications:Osteoporosis Given 02/21/2024 1:59 PM CDT 60 mg Left Arm documented in this encounter Care Teams Composition Tile Layer Relationship Specialty Start Date End Date Aneudy Jaeger MD PCP - General 08/26/14 08/25/24 documented as of this encounter
--- OUTSIDE RECORDS SUMMARY | 2024-10-27 10:47 | XMS_ITS | Encounter Summary ---
Author Organization [facility] Address [address] [place] [address]. [place] [address] [place] [address] Care Team Providers Care Auto Dismantler Name Role Phone Nickie Negron MD Primary Care Provider [phone] Reason for Visit * Reason Onset Date Comments Results 09/11/2024 Encounter Details Date Type Department Care Team (Late Contact Info) Description 09/11/2024 [facility]phone [facility] [place] [address] [place], [place] [phone] Renee Obrien FNP 3 [facility] [address] [place] [address] Results Social History Tobacco Use Types Packs/Day Years [...] as of this encounter Progress Notes * Eden Allen RN - 09/11/2024 2:44 PM CST ----- Message from Renee Obrien sent at 09/11/2024 2:42 PM FERMENTER WINE ----- Covering for Jen Dill Stress test without ischemia, normal EF and perfusion imaging and was low risk. Keep scheduled follow-up unless otherwise needed sooner. ENTER WINE documented in this encounter Plan of Treatment Upcoming Encounters Date Type Department Care Team (Late st Contact Info) Description 03/02/2025 11:00 AM CDT Appointment [facility] Outpatient Transfusion [place] [address] Nickie Negron MD 331 [facility] 100 [place] [address] 04/07/2025 12:30 PM CDT Office Visit [facility] THREE [facility], [facility] [address] [place], [place] [phone] Nicolas Brown MD Three [facility]. [address] [phone] documented as of this encounter Visit Diagnoses Not on filedocumented in this encounter Care Teams Auto Dismantler Relationship Specialty Start Date End Date Nickie Negron MD 331 [facility] 100 [place] [address] PCP - General INTERNAL MEDICINE 08/26/24 documented as of this encounter
--- OUTSIDE RECORDS SUMMARY | 2024-10-27 10:47 | XMS_ITS | Encounter Summary ---
Author Organization [facility] Address [address] [place] [address]. [place], [place] [address] [place] [address] Care Team Providers Care Discovery Guide Name Role Phone Kerri Negron MD Primary Care Provider [phone] Reason for Visit * Reason Comments Follow Up CD Rocio f/u Encounter Details Date Type Department Care Team (Late st Contact Info) Description 09/30/2024 2:30 PM ROOFING TECHNICIAN Office Visit [facility] THREE [facility], [facility] [address] [place], [place] [phone] Jen Lim FNP 3 [facility] [address] [place], [place] [phone] Follow Up (CD Rocio f/u) Social History Tobacco Use Types Packs/Day Years [...] Comments Blood Pressure 130/74 09/30/2024 2:28 PM ROOFING TECHNICIAN Pulse 100 09/30/2024 2:28 PM ROOFING TECHNICIAN Temperature - - Respiratory Rate - - Oxygen Saturation 98% 09/30/2024 2:28 PM ROOFING TECHNICIAN Inhaled Oxygen Concentration - - Weight 66 kg (145 lb 9.6 oz) 09/30/2024 2:28 PM ROOFING TECHNICIAN Height 162.6 cm (5' 4 ) 09/30/2024 2:28 PM ROOFING TECHNICIAN Body Mass Index 24.99 09/30/2024 2:28 PM ROOFING TECHNICIAN documented in this encounter Progress Notes * Jen Lim, CLINICAL BIOCHEMIST - 09/30/2024 2:30 PM CST Reason for Visit: Follow Up (CD Rocio f/u) History of Present Illness: Julius Andrade is a 73-year-old male with a past medical history of coronary artery disease s/p PCI to RCA (01/2016), PAD s/p L iliac POBA (2014), carotid artery disease with MESH CUTTER of L carotid, hypertension, hyperlipidemia who presents today for follow up testing. She was seen for an initial evaluation of CP approximately 8 weeks ago. Patient with significant dementia, accompanied by family. Previous cardiac history, as stated in HPI. Patient had been having chest pain, but given dementia hard to get accurate history. Was in [facility] ED for this a couple weeks prior to his last OV. There, troponin and EKG benign. Sent to see us for further eval. Morgan since underwent an echo and nuclear stress testing, as below. Here today to discuss. Not very active at baseline, uses a walker. No new CP symptoms since Imdur was started. No new SOB. No edema, orthopnea, palps or claudication. Toleratingmedications well. Weights unchanged. Labs: Lab Results Component Value Date/Time CHOL 130 01/26/2013 07:44 AM HDL 68 01/26/2013 07:44 AM LDL 51 01/26/2013 07:44 AM TRI 53 01/26/2013 07:44 AM CR 0.9 01/26/2013 07:44 AM Data Reviewed: [facility] (2015) - [facility] - RCA with 85% prox lesion, no other significant CAD seen. Presumably PCI to RCA, but no notes to back this up Echo (2015) - [facility] - no significant valve disease, normal EF Echo (07/2024) - EF 50-55%, mild LVH, no significant valve dysfunction Nuc stress (08/2024) - EF normal, normal perfusion Recommendations and Plan: CP/CAD - symptoms better with Imdur. Given that, will not pursue cath given frailty/memory problems. Continue DAPT, statin and beta nasra. HTN - well controlled. No changes. HL - lipid order placed. PCP can also check as well. PAD - could consider stopping plavix given use of Pletal. No complaints of claudication right now. No bleeding so will leave meds alone for now. Follow up in 6 months. Sooner if needed. Medications: Current Outpatient Medications: acetaminophen (TYLENOL) 500 MG tablet, Take 1 tablet (500 mg total) by mouth., Disp: , Rfl: albuterol sulfate HFA 108 (90 Base) MCG/ACT inhaler, INHALE 2 PUFFS BY MOUTH EVERY 8 HOURS NEEDED, Disp: , Rfl: ASPIRIN LOW DOSE 81 MG tablet, Take 1 tablet (81 mg total) by mouth daily., Disp: , Rfl: buPROPion XL (WELLBUTRIN XL) 150 MG 24 [...] 75 MG tablet, daily., Disp: , Rfl: denosumab (PROLIA) 60 MG/ML injection, Inject 1 mL (60 mg total) into the skin every 6 (six) months., Disp: , Rfl: fluticasone propionate (FLONASE) 50 MCG/ACT nasal spray, SHAKE LIQUID AND USE 1 SPRAY IN EACH NOSTRIL EVERY DAY, Disp: , Rfl: folic acid (FOLVITE) 1 MG tablet, daily., Disp: , Rfl: iron polysaccharides (NIFEREX) 150 MG capsule, Take by mouth every other day., Disp: , Rfl: isosorbide mononitrate ER (IMDUR) [...] Take by mouth daily., Disp: , Rfl: Multiple Vitamins-Minerals (PRESERVISION AREDS) capsule, daily., Disp: , Rfl: pantoprazole EC (PROTONIX) [...] (six) hours as needed., Disp: , Rfl: triamcinolone (KENALOG) 0.1 % cream, APPLY TOPICALLY TO THE AFFECTED AREA OF FEET TWICE DAILY, Disp: , Rfl: vitamin D3 (CHOLECALCIFEROL) 125 mcg Tab, daily., Disp: , Rfl: Review of patient's allergies indicates: Allergen Reactions Wheat Extract Unknown Gluten Meal Other (see comment) wheat Lactose GI Upset Past Medical History: Diagnosis Date Arthritis Asthma ([facility]) 08/16/2017 Atherosclerosis of coronary artery 02/27/2016 Chronic disease Chronic obstructive pulmonary disease ([facility]) 08/11/2024 History of blood transfusion Hypertension [...] information on file. Review of Systems Constitutional: Positive for weakness. Negative for recent unintentional weight gain, recent unintentional weight loss and new or significant fatigue. HENT: Negative for new or significant hearing loss. Eyes: Negative for blurred vision and double vision. Respiratory: Negative for cough, new or significant shortness of breath and snoring. Cardiovascular: See HPI. Negative for chest pain and palpitations. Gastrointestinal: Negative for blood in stool and melena. Genitourinary: Negative for dysuria. Musculoskeletal: Negative for myalgias and new or worsening joint stiffness/pain. Skin: Negative for rash. Neurological: Negative for tingling/numbness and focal weakness. Endo/Heme/Allergies: Positive for easy bruising/bleeding. Negative for polydipsia. Psychiatric/Behavioral: Positive for memory loss. Negative for depression. All other systems reviewed and are negative. Vitals: 09/30/24 1428 BP: 130/74 Pulse: 100 Weight: 66 kg (145 lb 9.6 oz) Height: 1.626 m (5' 4 ) Body mass index is 24.99 kg/m??. Cardiac Exam Rate/Rhythm: Normal rate and [...] Normal motor skills. Normal gait. Comments: Diagnoses/Impression: No diagnosis found. Referring Provider: No ref. provider found PCP: KERRI NEGRON MD ING TECHNICIAN documented in this encounter Plan of Treatment Upcoming Encounters Date Type Department Care Team (Late st Contact Info) Description 03/02/2025 11:00 AM CDT Appointment [facility] Outpatient Transfusion [place] [address] Kerri Negron MD 331 [facility] 100 [place] [address] 04/07/2025 12:30 PM CDT Office Visit [facility] THREE [facility], [address] [place], [place] [address] Nicolas Brown MD Three [facility]. [address] [place], [place] [phone] Scheduled Orders Name Type Priority Associated Diagnoses Orde r Schedule LIPID PANEL Lab Routine Mixed hyperlipidemia Expected: 10/16/2024, Expires: 10/16/2025 documented as of this encounter Visit Diagnoses Diagnosis Mixed hyperlipidemia- Primary Coronary artery disease involving seneca-cayuga coronary artery of seneca-cayuga heart without angina pectoris PAD (peripheral artery disease) ([facility]) Peripheral vascular disease, unspecified Essential (primary) hypertension Unspecified essential hypertension documented in this encounter Care Teams Discovery Guide Relationship Specialty Start Date End Date Kerri Negron MD [address] [place] [address] PCP - General INTERNAL MEDICINE 08/26/24 documented as of this encounter
--- OUTSIDE RECORDS SUMMARY | 2024-10-27 10:47 | XMS_ITS | Encounter Summary ---
Author Organization [facility] Address [address] [place] [address]. [place], [place] [phone] [place] [address] Care Team Providers Care Global Marketing Specialist Name Role Phone Aneudy Jaeger MD Primary Care Provider [phone] Encounter Details Date Type Department Care Team (Late st Contact Info) Description 10/01/2018 Abstract [facility] Conversion Aneudy Jaeger MD [address] [place] [address] Social History Tobacco Use Types [...] Info) Description 03/02/2025 11:00 AM CDT Appointment [facility] ONE [facility] [place] [address] Nickie Negron MD [address] [facility] 100 [place] [address] 04/07/2025 12:30 PM CDT [facility] THREE [facility] [address], [facility] [address] [place], [place] [address] Nicolas Brown MD Three [facility]. [facility] [place] [address] [place] [address] documented as of this encounter Procedures Procedure Name Priority Date/Time Associated Diagnosis Comments THYROID PANEL Routine 10/03/2012 11:32 AM COMPOSING ROOM SUPERVISOR documented in this encounter Results * (ABNORMAL) THYROID PANEL (10/03/2012 11:32 AM COMPOSING ROOM SUPERVISOR) FREE T4 0.95 0.70 - 1.48 NG/DL [facility] TO EPIC CONVERSION TSH ULTRASENSITIVE 20.33(H) 0.35 - 4.94 UIU/ML [facility] TO EPIC CONVERSION 10/03/2012 11:3 2 AM COMPOSING ROOM SUPERVISOR 10/03/2012 11:32 AM COMPOSING ROOM SUPERVISOR Narrative [facility] TO EPIC CONVERSION - 10/03/2012 11:32 AM COMPOSING ROOM SUPERVISOR [AUTO]: This test was reviewed. Aneudy Jaeger MD LABORATORY Final Result [facility] TO EPIC CONVERSION documented in this encounter Visit Diagnoses Not on filedocumented in this encounter Care Teams Global Marketing Specialist Relationship Specialty Start Date End Date Aneudy Jaeger MD PCP - General 08/26/14 08/25/24 documented as of this encounter
--- OUTSIDE RECORDS SUMMARY | 2024-10-27 10:47 | XMS_ITS | Encounter Summary ---
Author Organization [facility] Address [address] [place] [address]. [place] [address] [place] [address] Care Team Providers Care Customer Relations Consultant Name Role Phone Aneudy Jaeger MD Primary Care Provider [phone] Reason for Visit * Reason Comments Injection * Injection (Routine) - Closed Specialty Diagnoses / Procedures Referred By Contac t [facility] Diagnoses M81.0 Procedures INJ,DENOSUMAB,1 MG (XGEVA,PROLIA) INFUSION [facility] [place] [address] Phone: tel: fax: [facility] [place] [address] Phone: tel: fax: Referral ID Status Reason Start Date Expiration Date Visits Re quested Visits Authorized [id number] Closed 01/20/2021 2 2 Encounter Details Date Type Department Care Team (Late st Contact Info) Description 08/07/2021 9:30 AM CDT Treatment [facility] Infusion Services [place], [place] [phone] Non-Staff, Provider Nickie Negron MD [address] [place] [address] Injection Social History Tobacco Use [...] Sign Reading Time Taken Comments Blood Pressure 128/88 08/07/2021 9:34 AM CDT Pulse 98 08/07/2021 9:34 AM CDT Temperature 36.8 ??C (98.2 ??F) 08/07/2021 9:34 AM CD T Respiratory Rate 20 08/07/2021 9:34 AM CDT Oxygen Saturation 95% 08/07/2021 9:34 AM CDT Inhaled Oxygen Concentration - - Weight 56.7 kg (125 lb) 08/07/2021 8:11 AM CDT Height 162.6 cm (5' 4 ) 08/07/2021 8:11 AM CDT Body Mass Index 21.46 08/07/2021 8:11 AM CDT documented in this encounter Progress Notes * Narcisa Eddy RN - 08/07/2021 9:30 AM CDT Pt tolerated prolia sq well with out complications. documented in this encounter Plan of Treatment Upcoming Encounters Date Type Department Care Team (Late st Contact Info) Description 03/02/2025 11:00 AM CDT Appointment [facility] [address] Nickie Negron MD [address] [place] [address] 100 [place] [address] 04/07/2025 12:30 PM CDT Office Visit [facility] THREE [facility] [address] [place] [address] Nicolas Brown MD Three [facility] [address] [place] [address] documented as of this encounter Visit Diagnoses Diagnosis Osteoporosis- Primary Osteoporosis, unspecified documented in this encounter Administered Medications Inactive Administered Medications - up to 3 most recent administrations Medication Order MAR Action Action Date Dose Rate Site denosumab (PROLIA) injection 60 mg 60 mg, Subcutaneous, Once, 1 dose, On Sat08/07/21 at 0830Indications:Osteoporosis Given 08/07/2021 9:37 AM CDT 60 mg Right Arm documented in this encounter Care Teams Customer Relations Consultant Relationship Specialty Start Date End Date Aneudy Jaeger MD PCP - General 08/26/14 08/25/24 documented as of this encounter
--- OUTSIDE RECORDS SUMMARY | 2024-10-27 10:47 | XMS_ITS | Encounter Summary ---
Author Organization [facility] Address [address] [place] [address]. [place], [place] [address] [place] [address] Care Team Providers Care Military Logistics Specialist Name Role Phone Nickie Negron MD Primary Care Provider [phone] Encounter Details Date Type Department Care Team (Latest Contact Info) Description 08/26/2024 Travel Social History Tobacco Use Types Packs/Day [...] Info) Description 03/02/2025 11:00 AM CDT Appointment [facility] [place] [place] [address] Nickie Negron MD [address] [place] [address] 100 [place] [phone] 04/07/2025 12:30 PM CDT Office Visit [facility] THREE [facility], [address] [address] Nicolas Brown MD Three [facility]. [address] [address] documented as of this encounter Visit Diagnoses Not on filedocumented in this encounter Care Teams Military Logistics Specialist Relationship Specialty Start Date End Date Nickie Negron MD [address] [facility] 100 [place] [address] PCP - General INTERNAL MEDICINE 08/26/24 documented as of this encounter
--- OUTSIDE RECORDS SUMMARY | 2024-10-27 10:47 | XMS_ITS | Encounter Summary ---
Author Organization [facility] Address [address] [place] [address]. [place], [place] [address] [place] [address] Care Team Providers Care Conservation Worker Name Role Phone Nickie Negron MD Primary Care Provider [phone] Reason for Referral * Imaging (Routine) - Closed Specialty Diagnoses / Procedures Referred By Contac t Referred To Contact RADIOLOGY Diagnoses Dyspnea on exertion CAD (coronary artery disease) Procedures USE ECHOCARDIOGRAM Nicolas Brown MD [facility]. [address] [address] Phone: tel: fax: Referral ID Status Reason Start Date Expiration Date Visits Re quested Visits Authorized [id number] Closed 08/26/2024 08/26/2024 1 1 Reason for Visit * Imaging (Routine) - Closed Specialty Diagnoses / Procedures Referred By Roula mcmillan Referred To Contact RADIOLOGY Diagnoses Dyspnea on exertion CAD (coronary artery disease) Procedures USE ECHOCARDIOGRAM Nicolas Brown MD [facility]. [facility] [address] [place] [address] Phone: tel: fax: Referral ID Status Reason Start Date Expiration Date Visits Re quested Visits Authorized [id number] Closed 08/26/2024 08/26/2024 1 1 Encounter Details Date Type Department Care Team (Late st Contact Info) Description 08/26/2024 2:27 PM CDT - 08/26/2024 11:59 PM CDT Hospital Encounter [facility] Non [place] [address] Nicolas Brown MD Three [facility]. [address] [place] [address] Discharge Disposition: Home or Self Care (Routine [...] Info) Description 03/02/2025 11:00 AM CDT Appointment [facility] Outpatient [place] [address] Nickie Negron MD [address] [place] [address] [address] [place] [address] 04/07/2025 12:30 PM CDT Office Visit [place] THREE [facility], [facility] [address] [place] [address] Nicolas Brown MD Three [facility]. [address] [address] documented as of this encounter Procedures Procedure Name Priority Date/Time Associated Diagnosis Comments USE ECHOCARDIOGRAM Routine 08/26/2024 3: 19 PM CDT Dyspnea on exertion Coronary artery disease involving tunica-biloxi coronary artery of tunica-biloxi heart, unspecified whether angina present documented in this encounter Results * USE ECHOCARDIOGRAM (08/26/2024 3:19 PM CDT) Anatomical Region Laterality Modality Cardiac Echocardiogram 08/26/2024 2:41 PM CDT Narrative 08/26/2024 4:08 PM CDT ?Echocardiography Report Pat.Name: ??ALONDRACHAMPJULIUS.ID: ?[id number] ? St.Date: ?? 08/26/2024 ? Refer.: ??[id number] MICHELLE HOOD ? EWDPROV ?EWDPROV Exam Time: 2:41:00 PM ? Study Type:ECHO WITH CARDIAC DOPPLER COMP Height: ?64 in ? Weight: ?145 lb ? BSA: ? 1.71 m2 ?Age: ??1950,73Y ? Sex: ? M ? BP: ?132/82 ? Sonogrphr: Marlene Gomez RDCS ?? Pat. Stat.:Outpatient ? CPT - 4: ?44615 ? Reason for Study:Dyspnea on exertion Procedures: [...] ? Right and Left ??0.761 ? Major Alexandria ?67.6 mm ? Ventricular Septum ?? IVSd [...] Brown MD - 08/26/2024 Echocardiography Report Pat.Name: JULIUS ANDRADE.ID: [id number] .Date: 08/26/2024 Refer.: [id number] MICHELLE HOOD EWDPROV EWDPROV Exam Time: 2:41:00 PM Study Type:ECHO WITH CARDIAC DOPPLER COMP Height: 64 in Weight: 145 lb BSA: 1.71 m2 Age: 2 1950,73Y Sex: M BP: 132/82 Sonogrphr: Marlene Gomez [facility] Pat. Stat.:Outpatient CPT - 4: 46462 Reason for Study:Dyspnea on exertion Procedures: 2D, [...] 27.7 mm Right and Left 0.761 Major Alexandria 67.6 mm Ventricular Septum IVSd 1.24 cm [...] Signature> 08/26/2024 04:08 PM Nicolas Brown M.D. Nicolas Brown MD ECHO Final Resul t documented in this encounter Visit Diagnoses Diagnosis Dyspnea on exertion Other dyspnea and respiratory abnormality Coronary artery disease involving tunica-biloxi coronary artery of tunica-biloxi heart, unspecified whether angina present documented in this encounter Care Teams Conservation Worker Relationship Specialty Start Date End Date Nickie Negron MD [address] [facility] [address] [place] [address] PCP - General INTERNAL MEDICINE 08/26/24 documented as of this encounter
--- OUTSIDE RECORDS SUMMARY | 2024-10-27 10:47 | XMS_ITS | Encounter Summary ---
Author Organization [facility] Address [address] [place] [address]. [place], [place] [address] [place] [address] Care Team Providers Care Lining Cementer Name Role Phone Aneudy Jaeger MD Primary Care Provider [phone] Encounter Details Date Type Department Care Team (Latest Contact Info) Description 02/21/2024 Travel Social History Tobacco Use Types Packs/Day [...] Info) Description 03/02/2025 11:00 AM CDT Appointment [facility] [place] [address] Nickie Negron MD [address] [place] [address] [address] [place] [address] 04/07/2025 12:30 PM CDT Office Visit [facility] THREE [facility], [address] [id number] Nicolas Brown MD Three [facility]. [address] [id number] documented as of this encounter Visit Diagnoses Not on filedocumented in this encounter Care Teams Lining Cementer Relationship Specialty Start Date End Date Butalid, Aneudy, MD PCP - General 08/26/14 08/25/24 documented as of this encounter
--- OUTSIDE RECORDS SUMMARY | 2024-10-27 10:47 | XMS_ITS | Encounter Summary ---
Author Organization [facility] Address [address] [place] [address]. [place], [place] [address] [place] [address] Care Team Providers Care Certified Lactation Educator Name Role Phone Aneudy Jaeger MD Primary Care Provider [phone] Encounter Details Date Type Department Care Team (Late Contact Info) Description 08/12/2024 Orders Only [facility] [place] [address] Nickie Negron MD [address] [place] [address] Social History Tobacco Use Types [...] Info) Description 03/02/2025 11:00 AM CDT Appointment [facility] Outpatient [place] [address] Nickie Negron MD [address] [place] [address] 04/07/2025 12:30 PM CDT Office Visit [facility] THREE [facility], [address] [address] Nicolas Brown MD Three [facility]. [facility] [address] [place] [address] documented as of this encounter Visit Diagnoses Diagnosis Osteoporosis- Primary Osteoporosis, unspecified documented in this encounter Care Teams Certified Lactation Educator Relationship Specialty Start Date End Date Aneudy Jaeger MD PCP - General 08/26/14 08/25/24 documented as of this encounter
--- OUTSIDE RECORDS SUMMARY | 2024-10-27 10:47 | XMS_ITS | Encounter Summary ---
Author Organization [facility] Address [address] [place] [address]. [place], [place] [address] [place] [address] Care Team Providers Care Manager Hair Name Role Phone Aneudy Jaeger MD Primary Care Provider [phone] Encounter Details Date Type Department Care Team (Latest Contact Info) Description 01/30/2021 Travel Social History Tobacco Use Types Packs/Day [...] Info) Description 03/02/2025 11:00 AM CDT Appointment [facility] [place] [address] Nickie Negron MD [address] [place] [address] [address] [place] [address] 04/07/2025 12:30 PM CDT [facility], [address] [phone] Nicolas Brown MD Three [facility]. [address] [address] documented as of this encounter Visit Diagnoses Not on filedocumented in this encounter Care Teams Manager Hair Relationship Specialty Start Date End Date Aneudy Jaeger MD PCP - General 08/26/14 08/25/24 documented as of this encounter
--- OUTSIDE RECORDS SUMMARY | 2024-10-27 10:47 | XMS_ITS | Encounter Summary ---
Author Organization [facility] Address [address] [place] [address]. [place], [place] [address] [place] [address] Care Team Providers Care Purchasing Specialist Name Role Phone Aneudy Jaeger MD Primary Care Provider [phone] Encounter Details Date Type Department Care Team (Late st Contact Info) Description 09/29/2018 Abstract [facility] Conversion Aneudy Jaeger MD [address] [place] [address] Social History Tobacco Use Types [...] Info) Description 03/02/2025 11:00 AM CDT Appointment [facility] [place] [address] Nickie Negron MD [address] [facility] [address] [place] [address] 04/07/2025 12:30 PM CDT [facility] [address], [facility] [address] [place], [place] [address] Nicolas Brown MD Three [facility]. [facility] [address] [place] [address] documented as of this encounter Procedures Procedure Name Priority Date/Time Associated Diagnosis Comments PROSTATE SPECIFIC ANTIGEN,SCREENING Routine 01/26/2013 7:44 AM CDT COMPREHENSIVE METABOLIC PANEL Routine 01/26/2013 7:44 AM CDT LIPID PANEL Routine 01/26/2013 7:44 AM CDT THYROID PANEL Routine 01/26/2013 7:44 AM CDT CBC W/DIFF AUTOMATED Routine 01/26/2013 7:44 AM CDT documented in this encounter Results * (ABNORMAL) COMPREHENSIVE METABOLIC PANEL (01/26/2013 7:44 AM CDT) GLUCOSE 108(H) 70 - 99 MG/DL [facility] TO EPIC CONVERSION BUN 21 8.4 - 24.7 MG/DL [facility] TO [facility] CONVERSION CREATININE S/P/B 0.9 0.7 - 1.3 MG/DL [facility] TO EPIC CONVERSION SODIUM S/P/B 139 136 - 145 MMOL/L [facility] TO [facility] CONVERSION POTASSIUM S/P/B 3.7 3.5 - 5.1 MMOL/L [facility] TO [facility]IC CONVERSION CHLORIDE S/P/B 108(H) 98 - 107 MMOL/L [facility] TO [facility] CONVERSION TCO2 23.0 22 - 29 MMOL/L [facility] TO EPIC CONVERSION CALCIUM S/P/B 9.3 8.4 - 10.2 MG/DL [facility] TO EPIC CONVERSION BILIRUBIN TOTAL S/P/B 0.3 0.2 - 1.2 MG/DL [facility] TO EPIC CONVERSION TOTAL PROTEIN S/P/B 6.9 6.4 - 8.3 G/DL [facility] TO [facility]IC CONVERSION ALBUMIN S/P/B 3.8 3.4 - 4.8 G/DL [facility] TO [facility] CONVERSION AST 22 5 - 34 UNITS/L [facility] TO [facility] CONVERSION ALT 18 0 - 41 UNITS/L [facility] TO [facility] CONVERSION ALKALINE PHOSPHATASE S/P/B 114 40 - 115 UNITS/L [facility] TO [facility]IC CONVERSION ANION GAP 8.0 0 - 24 MMOL/L [facility] TO EPIC CONVERSION BUN CREATININE RATIO 23.3 6 - 26 [facility] TO [facility] CONVERSION OSMOLALITY (CALC) 281(H) 261 - 280 MOSM/KG [facility] TO [facility] CONVERSION A/G RATIO 1.2 1.1 - 1.9 RATIO [facility] TO [facility] CONVERSION EGFR NON-AFR. AMER. >60 >60 ML/MIN/1.7 3 M2 [facility] TO EPIC CONVERSION EGFR AFR. AMER. >60 >60 ML/MIN/1.7 3 M2 [facility] TO EPIC CONVERSION 01/26/2013 7:44 AM CDT 01/26/2013 7:44 AM CDT Narrative [facility] TO [facility] CONVERSION - 01/26/2013 7:44 AM CDT [AUTO]: This test was reviewed. Aneudy Jaeger MD LABORATORY Final Result Performing Organization Address [facility] Phone Number [facility] TO EPIC CONVERSION * LIPID PANEL (01/26/2013 7:44 AM CDT) CHOLESTEROL 130 <200 MG/DL [facility] P TO EPIC CONVERSION TRIGLYCERIDES 53 <150 MG/DL [facility] OUP TO EPIC CONVERSION HDL 68 >60 MG/DL [facility] T O EPIC CONVERSION Comment:AN HDL OF >60 IS NO RISK, RISK IS DEFINED <40 LDL (CALCULATED) 51 <100 MG/DL [facility] TO EPIC CONVERSION Comment: AN LDL OF <100 IS OPTIMAL, ELEVATED IS DEFINED >130 BY CURRENT GUIDELINES, LDL GOALS ARE DEPENDENT UPON OTHER RISK FACTORS 01/26/2013 7:44 AM CDT 01/26/2013 7:44 AM CDT Narrative [facility] TO EPIC CONVERSION - 01/26/2013 7:44 AM CDT [AUTO]: This test was reviewed. us Aneudy Jaeger MD LABORATORY Final Result Performing Organization Address [facility] de Phone Number [facility] TO EPIC CONVERSION * (ABNORMAL) CBC W/DIFF AUTOMATED (01/26/2013 7:44 AM CDT) WBC 11.4(H) 4.8 - 10.8 K/UL [facility] TO EPIC CONVERSION RBC 4.34(L) 4.5 - 5.9 M/UL [facility] TO EPIC CONVERSION HGB 13.7 13.5 - 17.5 G/DL [facility] TO EPIC CONVERSION HCT 41.2 41 - 53 % [facility] T O EPIC CONVERSION MCV 94.9 80 - 100 FL [facility] TO EPIC CONVERSION MCH 31.6 26.0 - 34.0 PG [facility] TO EPIC CONVERSION MCHC 33.3 31.0 - 37.0 G/DL [facility] TO EPIC CONVERSION RDW 13.2 11.5 - 14.5 % [facility] TO EPIC CONVERSION PLT 197 150 - 350 K/UL [facility] TO EPIC CONVERSION COMMENT AUTOMATED RBC MORPHOLOGY AND PLATELET EVALUATION NORMAL [facility] TO [facility]IC CONVERSION NEUTROPHILS % 65.8 50 - 70 % [facility] UP TO EPIC CONVERSION LYMPHOCYTES 22.9 18 - 42 % [facility] TO [facility]IC CONVERSION MONOCYTES 7.6 2.0 - 11.0 % [facility] TO [facility]IC CONVERSION EOSINOPHILS 3.3(H) 1.0 - 3.0 % [facility] TO EPIC CONVERSION BASOPHILS 0.4 0.0 - 1.0 % [facility] TO EPIC CONVERSION ABS. NEUTROPHILS 7.5 1.69 - 7.81 K/UL [facility] TO EPIC CONVERSION 01/26/2013 7:44 AM CDT 01/26/2013 7:44 AM CDT Narrative [facility] TO EPIC CONVERSION - 01/26/2013 7:44 AM CDT [AUTO]: This test was reviewed. Aneudy Jaeger MD LABORATORY Final Result Performing Organization Address City[facility]/ZIP Co de Phone Number [facility] TO EPIC CONVERSION * PROSTATE SPECIFIC ANTIGEN,SCREENING (01/26/2013 7:44 AM CDT) PSA 1.196 <4.0 ng/mL [facility] TO EPIC CONVERSION Comment:TESTING PERFORMED BY [facility] CHEMILUMINESCENT METHOD 01/26/2013 7:44 AM CDT 01/26/2013 7:44 AM CDT Narrative [facility] TO EPIC CONVERSION - 01/26/2013 7:44 AM CDT [AUTO]: This test was reviewed. Aneudy Jaeger MD LABORATORY Final Result [facility] TO [facility] CONVERSION * (ABNORMAL) THYROID PANEL (01/26/2013 7:44 AM CDT) FREE T4 1.07 0.70 - 1.48 NG/DL [facility] TO EPIC CONVERSION TSH ULTRASENSITIVE 6.43(H) 0.35 - 4.94 UIU/ML [facility] TO EPIC CONVERSION 01/26/2013 7:44 AM CDT 01/26/2013 7:44 AM CDT Narrative [facility] TO EPIC CONVERSION - 01/26/2013 7:44 AM CDT [AUTO]: This test was reviewed. Aneudy Jaeger MD LABORATORY Final Result [facility] TO [facility]IC CONVERSION documented in this encounter Visit Diagnoses Not on filedocumented in this encounter Care Teams Purchasing Specialist Relationship Specialty Start Date End Date Aneudy Jaeger MD PCP - General 08/26/14 08/25/24 documented as of this encounter
--- OUTSIDE RECORDS SUMMARY | 2024-10-27 10:47 | XMS_ITS | Encounter Summary ---
Author Organization [facility] Address [address] [place] [address]. [place] [address] [place] [address] Care Team Providers Care Orthoptist Name Role Phone Aneudy Jaeger MD Primary Care Provider Encounter Details Date Type Department Care Team (Latest Contact Info) Description 07/23/2015 Abstract [facility] Porfirio Mdcowell MD [address] [facility] [address] [place], [place] [address] Social History Tobacco Use Types Packs/Day Years [...] Info) Description 03/02/2025 11:00 AM CDT Appointment [facility] Outpatient [place] [address] Nickie Negron MD [address] [facility] [address] [place] [address] 04/07/2025 12:30 PM CDT Office Visit [place] THREE [facility], [facility] [address] [place] [address] Nicolas Brown MD Three [facility]. [address] [address] documented as of this encounter Visit Diagnoses Not on filedocumented in this encounter Care Teams Orthoptist Relationship Specialty Start Date End Date Aneudy Jaeger MD PCP - General 08/26/14 08/25/24 documented as of this encounter
--- OUTSIDE RECORDS SUMMARY | 2024-10-27 10:48 | XMS_ITS | Encounter Summary ---
Author Organization [facility] Address [address] [place] [address]. [place], [place] [address] [place] [address] Care Team Providers Care Sales And Marketing Agent Name Role Phone Aneudy Jaeger MD Primary Care Provider Encounter Details Date Type Department Care Team (Late st Contact Info) Description 09/09/2013 Abstract [facility] Conversion Md, Generic Conversion, Social History Tobacco Use Types Packs/Day Years Used Date Smoking Tobacco: Never Assessed Sex and Gender Information Value Date Recorded Sex Assigned at Not on file Legal Sex Male 4:24 PM CDT Gender Identity Not on file Sexual Orientation Not on file documented as of this encounter Last Filed Vital Signs Vital Sign Reading Time Taken Comments Blood Pressure 110/68 09/09/2013 8:[address] Pulse 79 09/09/2013 8:[address]IVER Temperature - - Respiratory Rate - - Oxygen Saturation - - Inhaled Oxygen Concentration - - Weight 53.1 kg (117 lb) 09/09/2013 8:[address]IVER Height 162.6 cm (5' 4 ) 09/09/2013 8:[address]IVER Body Mass Index 20.08 09/09/2013 8:[address] documented in this encounter Progress Notes * Aneudy Jaeger MD - 09/09/2013 12:00 AM CST ACTIVE PROBLEMS ? Hypertension, Benign ? Hypothyroidism CHIEF COMPLAINT The Chief Complaint is: Check up on BP, breathing and heart. Needs meds refilled. Pt states left foot is bothering him. Pt states he has callus and foot is tender. HISTORY OF PRESENT ILLNESS Julius Andrade is a 62 year old male. Pt is here for a 6 month f/u visit fro HTN and Hypothyroidism.He is doing well.He takes his meds regularly.He denies chest pain nor SOB.TSH is now normal 2.68 after Synthroid was increased.Also c/o pain on the ball of left foot when puts weight on it. CURRENT MEDICATION ? Cyclobenzaprine HCl 5 MG TABS, As needed, 0 days, 0 refills, every 8 hours prn ? Levothyroxine Sodium 25 MCG TABS, Once a day, 0 days, 0 refills ? Levothyroxine Sodium 88 MCG TABS, Once a day, 90 days, 1 refills ? Levothyroxine Sodium 100 MCG TABS, Once a day, 90 days, 1 refills, increased ? Lisinopril 5 MG TABS, Once a day, 90 days, 1 refills ? Lisinopril 10 MG TABS, Once a day, 90 days, 1 refills ? Naprosyn 375 MG TABS, Twice a Day, 30 days, 0 refills PAST MEDICAL/SURGICAL HISTORY Reported: No recent change in medical history. SOCIAL HISTORY Social history unchanged. Behavioral: Smoking status: Current everyday smoker. ALLERGIES ? No Known Allergies FAMILY HISTORY Family history unchanged REVIEW OF SYSTEMS Systemic: No recent weight change. Head: No headache. Otolaryngeal: No epistaxis. Cardiovascular: No chest pain or discomfort. Pulmonary: No dyspnea. Gastrointestinal: Normal appetite. Musculoskeletal: No muscle aches and no localized joint pain. Neurological: No dizziness. PHYSICAL FINDINGS ? Vitals taken 09/09/2013 08:45 am BP-Sitting 110/68 mmHg Pulse Rate-Sitting 79 bpm Respiration Rate 18 per min Temp-Oral 98.4 F Height 64 in Weight 117 lbs Body Mass Index 20.1 kg/m2 Body Surface Area 1.56 m2 Oxygen Saturation 99 % General Appearance: ?? Oriented to time, place, and person. ?? Well developed. ?? Well nourished. Neck: Suppleness: ?? Neck demonstrated no decrease in suppleness. Eyes: General/bilateral: Extraocular Movements: ?? Normal. Pupils: ?? PERRLA. Lungs: ?? Normal breath sounds/voice sounds. Cardiovascular: Heart Rate And Rhythm: ?? Normal. Skin: ?? General appearance was normal left foot - 1 cm light angeles,round knot,translucent on 3rd metatarsal area,plantar. ASSESSMENT ? Benign essential hypertension ? Hypothyroidism ? Callus THERAPY ? Regular exercise. ? Frequent intake of oral fluids. ? Continue current medication. ? Clinical summary provided to patient. COUNSELING/EDUCATION ? Diet PLAN ? OTHER Levothyroxine Sodium 100 MCG TABS, Once a day, 90 days, 1 refills Lisinopril 10 MG TABS, Once a day, 90 days, 1 refills ? Return to the clinic if condition worsens or new symptoms arise ? Follow-up visit in 6 months advised insert padding or will remove Aneudy Jaeger MD Electronically signed by: Rupert Jaeger MD Date: 09/15/2013 09:26 DRIVER documented in this encounter Miscellaneous Notes * Letter - Aneudy Jaeger MD - 09/09/2013 12:00 AM CST Visit Summary Dear Mr.Michael Adam Andrade This is a summary of your visit to our clinic on 09/09/2013 Your Problem List: Hypertension, Benign Hypothyroidism Your Current Medication List: Cyclobenzaprine HCl 5 MG TABS, As needed, 0 days, 0 refills, every 8 hours prn Levothyroxine Sodium 25 MCG TABS, Once a day, 0 days, 0 refills Levothyroxine Sodium 88 MCG TABS, Once a day, 90 days, 1 refills Levothyroxine Sodium 100 MCG TABS, Once a day, 90 days, 1 refills, increased Lisinopril 5 MG TABS, Once a day, 90 days, 1 refills Lisinopril 10 MG TABS, Once a day, 90 days, 1 refills Naprosyn 375 MG TABS, Twice a Day, 30 days, 0 refills Chief Complaint: The Chief Complaint is: Check up on BP, breathing and heart. Needs meds refilled. Pt states left foot is bothering him. Pt states he has callus and foot is tender. Your Vital signs were: Vitals taken 09/09/2013 08:45 am BP-Sitting 110/68 mmHg Pulse Rate-Sitting 79 bpm Respiration Rate 18 per min Temp-Oral 98.4 F Height 64 in Weight 117 lbs Body Mass Index 20.1 kg/m2 Body Surface Area 1.56 m2 Oxygen Saturation 99 % Your Diagnosis on this visit: Benign essential hypertension Hypothyroidism Callus List of Medications refilled, Tests ordered and your next recommended appointment : OTHER Levothyroxine Sodium 100 MCG TABS, Once a day, 90 days, 1 refills Lisinopril 10 MG TABS, Once a day, 90 days, 1 refills Return to the clinic if condition worsens or new symptoms arise Follow-up visit in 6 months advised insert padding or will remove Counseling and Education, Health Reminders and other information: Diet Regular exercise. Frequent intake of oral fluids. Continue current medication. Clinical summary provided to patient. DRIVER documented in this encounter Plan of Treatment Upcoming Encounters Date Type Department Care Team (Late st Contact Info) Description 03/02/2025 11:00 AM CDT Appointment [facility] [place] [address] Nickie Negron MD [facility] [address] [place] [phone] 04/07/2025 12:30 PM CDT Office Visit [facility], [address] [address] Nicolas Brown MD [facility]. [address] [address] documented as of this encounter Visit Diagnoses Not on filedocumented in this encounter Care Teams Sales And Marketing Agent Relationship Specialty Start Date End Date Aneudy Jaeger MD PCP - General 08/26/14 08/25/24 documented as of this encounter
--- OUTSIDE RECORDS SUMMARY | 2024-10-27 10:48 | XMS_ITS | Encounter Summary ---
Author Organization [facility] Address [address] [place] [address]. [place] [address] [place] [address] Care Team Providers Care Health Lead Name Role Phone Aneudy Jaeger MD Primary Care Provider [phone] Encounter Details Date Type Department Care Team (Late st Contact Info) Description 07/04/2001 Abstract [facility] CONVERSION [address] [place] [address] , Generic Conversion, Social History Tobacco Use Types [...] Info) Description 03/02/2025 11:00 AM CDT Appointment [facility] [place] [address] Nickie Negron MD 331 [facility] 100 [place] [address] 04/07/2025 12:30 PM CDT Office Visit [place] [facility] THREE [facility], [address] [address] Nicolas Brown MD Three [facility]. [address] [id number] documented as of this encounter Visit Diagnoses Not on filedocumented in this encounter Care Teams Health Lead Relationship Specialty Start Date End Date Aneudy Jaeger MD PCP - General 08/26/14 08/25/24 documented as of this encounter
--- OUTSIDE RECORDS SUMMARY | 2024-10-27 10:48 | XMS_ITS | Encounter Summary ---
Author Organization [facility] Address [address] [place] [address]. [place], [place] [address] [place] [address] Care Team Providers Care Shower Enclosure Installer Name Role Phone Aneudy Jaeger MD Primary Care Provider [phone] Encounter Details Date Type Department Care Team (Late st Contact Info) Description 08/18/2014 Abstract [facility] Conversion , Generic Conversion, Social History Tobacco Use [...] Info) Description 03/02/2025 11:00 AM CDT Appointment [facility]fusion [place] [address] Nickie Negron MD [address] [place] [address] 100 [place] [address] 04/07/2025 12:30 PM CDT Office Visit [facility] THREE [facility] [address] [place], [place] [id number] Nicolas Brown MD Three [facility]. [facility] [address] [place], [place] [id number] documented as of this encounter Visit Diagnoses Not on filedocumented in this encounter Care Teams Shower Enclosure Installer Relationship Specialty Start Date End Date Aneudy Jaeger MD PCP - General 08/26/14 08/25/24 documented as of this encounter
--- OUTSIDE RECORDS SUMMARY | 2024-10-27 10:48 | XMS_ITS | Encounter Summary ---
Author Organization [facility] Address [address] [place] [address]. [place] [address] [place] [address] Care Team Providers Care Battery Charger Name Role Phone Aneudy Jaeger MD Primary Care Provider [phone] Encounter Details Date Type Department Care Team (Late st Contact Info) Description 06/21/2006 Abstract [facility] [address] [place] [address] , Gladys Gonzalez MD Social History Tobacco Use Types Packs/Day Years [...] Info) Description 03/02/2025 11:00 AM CDT Appointment [facility] Outpatient [place] [address] Nickie Negron MD [address] [place] [address] 100 [place] [address] 04/07/2025 12:30 PM CDT Office Visit [facility] THREE [facility], [address] [address] Nicolas Brown MD Three [facility]. [address] [address] documented as of this encounter Visit Diagnoses Not on filedocumented in this encounter Care Teams Battery Charger Relationship Specialty Start Date End Date Aneudy Jaeger MD PCP - General 08/26/14 08/25/24 documented as of this encounter
--- OUTSIDE RECORDS SUMMARY | 2024-10-27 10:48 | XMS_ITS | Encounter Summary ---
Author Organization [facility] Address [address] [place] [address]. [place], [place] [address] [place] [address] Care Team Providers Care Apron Trimmer Name Role Phone Aneudy Jaeger MD Primary Care Provider [phone] Encounter Details Date Type Department Care Team (Late st Contact Info) Description 11/07/2012 Abstract [facility] Conversion Md, Generic Conversion, Social History [...] Sign Reading Time Taken Comments Blood Pressure 140/72 11/07/2012 9:15 AM FLARE BREAKER Pulse 71 11/07/2012 9:15 AM FLARE BREAKER Temperature - - Respiratory Rate - - Oxygen Saturation - - Inhaled Oxygen Concentration - - Weight 57.2 kg (126 lb) 11/07/2012 9:15 AM FLARE BREAKER Height 162.6 cm (5' 4 ) 11/07/2012 9:15 AM FLARE BREAKER Body Mass Index 21.63 11/07/2012 9:15 AM FLARE BREAKER documented in this encounter Progress Notes * Aneudy Jaeger MD - 11/07/2012 12:00 AM CST ACTIVE PROBLEMS ? Hypertension, Benign ? Hypothyroidism CHIEF COMPLAINT The Chief Complaint is: Check up on BP. HISTORY OF PRESENT ILLNESS Julius Andrade is a 61 year old male. Pt is here for f/u BP after started on Lisinopril.BP is better but not normal yet.Denies adverse effects of meds. CURRENT MEDICATION ? Cyclobenzaprine HCl 5 MG TABS, As needed, 0 days, 0 refills, every 8 hours prn ? Levothyroxine Sodium 25 MCG TABS, Once a day, 0 days, 0 refills ? Levothyroxine Sodium 88 MCG TABS, Once a day, 90 days, 1 refills ? Lisinopril 5 MG TABS, Once a day, 90 days, 1 refills PAST MEDICAL/SURGICAL HISTORY Reported: No recent [...] No dizziness. PHYSICAL FINDINGS ? Vitals taken 11/07/2012 09:15 am BP-Sitting 140/72 mmHg Pulse Rate-Sitting 71 bpm Respiration Rate 20 per min Temp-Oral 97.9 F Height 64 in Weight 126 lbs Body Mass Index 21.6 kg/m2 Body Surface Area 1.61 m2 Oxygen Saturation 99 % General Appearance: ?? Oriented to time, place, and person. ?? Well developed. ?? Well nourished. Neck: Suppleness: ?? Neck demonstrated no decrease in suppleness. Eyes: General/bilateral: Extraocular Movements: ?? Normal. Pupils: ?? PERRLA. Lungs: ?? Normal breath sounds/voice sounds. Cardiovascular: Heart Rate And Rhythm: ?? Normal. Skin: ?? General appearance was normal. ASSESSMENT ? Benign essential hypertension THERAPY ? Regular exercise. ? Frequent intake of oral fluids. ? Continue current medication. ? Clinical summary provided to patient. COUNSELING/EDUCATION ? Diet PLAN ? OTHER Lisinopril 10 MG TABS, Once a day, 90 days, 0 refills, increased ? Return to the clinic if condition worsens or new symptoms arise Inc lisinopril to 10 daily. check BP at home and call if abnormal. Aneudy Jaeger MD Electronically signed by: Rupert Jaeger MD Date: 11/10/2012 09:03 E BREAKER documented in this encounter Miscellaneous Notes * Letter - Aneudy Jaeger MD - 11/07/2012 12:00 AM CST Visit Summary Dear .Julius Andrade This is a summary of your visit to our clinic on 11/07/2012 Your Problem List: Hypertension, Benign Hypothyroidism Your Current Medication List: Cyclobenzaprine HCl 5 MG TABS, As needed, 0 days, 0 refills, every 8 hours prn Levothyroxine Sodium 25 MCG TABS, Once a day, 0 days, 0 refills Levothyroxine Sodium 88 MCG TABS, Once a day, 90 days, 1 refills Lisinopril 5 MG TABS, Once a day, 90 days, 1 refills Chief Complaint: The Chief Complaint is: Check up on BP. Your Vital signs were: Vitals taken 11/07/2012 09:15 am BP-Sitting 140/72 mmHg Pulse Rate-Sitting 71 bpm Respiration Rate 20 per min Temp-Oral 97.9 F Height 64 in Weight 126 lbs Body Mass Index 21.6 kg/m2 Body Surface Area 1.61 m2 Oxygen Saturation 99 % Your Diagnosis on this visit: Benign essential hypertension List of Medications refilled, Tests ordered and your next recommended appointment : OTHER Lisinopril 10 MG TABS, Once a day, 90 days, 0 refills, increased Return to the clinic if condition worsens or new symptoms arise Inc lisinopril to 10 daily. Counseling and Education, Health Reminders and other information: Diet Regular exercise. Frequent intake of oral fluids. Continue current medication. Clinical summary provided to patient. E BREAKER documented in this encounter Plan of Treatment Upcoming Encounters Date Type Department Care Team (Late st Contact Info) Description 03/02/2025 11:00 AM CDT Appointment [facility] [place] [address] Nickie Negron MD [address] [place] [address] 100 [place] [address] 04/07/2025 12:30 PM CDT Office Visit [facility] THREE [facility], [address] [address] Nicolas Brown MD [facility]. [facility] [address] [place] [address] documented as of this encounter Visit Diagnoses Not on filedocumented in this encounter Care Teams Apron Trimmer Relationship Specialty Start Date End Date Aneudy Jaeger MD PCP - General 08/26/14 08/25/24 documented as of this encounter
--- OUTSIDE RECORDS SUMMARY | 2024-10-27 10:48 | XMS_ITS | Encounter Summary ---
Author Organization [facility] Address [address] [place] [address]. [place], [place] [address] [place] [address] Care Team Providers Care Reconsignment Clerk Name Role Phone Aneudy Jaeger MD Primary Care Provider [phone] Encounter Details Date Type Department Care Team (Late st Contact Info) Description 10/06/2012 Abstract [facility] Conversion , Generic Conversion, Social History Tobacco Use Types Packs/Day Years Used Date Smoking Tobacco: Never Assessed Sex and Gender Information Value Date Recorded Sex Assigned at Not on file Legal Sex Male 4:24 PM CDT Gender Identity Not on file Sexual Orientation Not on file documented as of this encounter Last Filed Vital Signs Vital Sign Reading Time Taken Comments Blood Pressure 150/82 10/06/2012 8:19 AM MOTOR GRADER ROUGH GRADE Pulse 73 10/06/2012 8:19 AM MOTOR GRADER ROUGH GRADE Temperature - - Respiratory Rate - - Oxygen Saturation - - Inhaled Oxygen Concentration - - Weight 54 kg (119 lb) 10/06/2012 8:19 AM MOTOR GRADER ROUGH GRADE Height 162.6 cm (5' 4 ) 10/06/2012 8:19 AM MOTOR GRADER ROUGH GRADE Body Mass Index 20.43 10/06/2012 8:19 AM MOTOR GRADER ROUGH GRADE documented in this encounter Progress Notes * Aneudy Jaeger MD - 10/06/2012 12:00 AM CST CHIEF COMPLAINT The Chief Complaint is: To review meds to make sure he is on right dosage. HISTORY OF PRESENT ILLNESS Julius Andrade is a 61 year old male. Pt is here for f/u Hypothyroidism. He is doing fine. He takes his meds regularly. He denies chest pain nor SOB.Had blood works w/c showed TSH 20 and T4 0.9.Takes Alleve for OA and vitamins.Synthroid was inc to 50 from 25.Repeat BP 150/70.C/o always cold. CURRENT MEDICATION ? Cyclobenzaprine HCl 5 MG TABS, As needed, 0 days, 0 refills, every 8 hours prn ? Levothyroxine Sodium 25 MCG TABS, Once a day, 0 days, 0 refills PAST MEDICAL/SURGICAL HISTORY Diagnoses: No coronary artery disease No essential hypertension. No hyperlipidemia. No type 2 diabetes mellitus. No HIV infection SOCIAL HISTORY Behavioral: No caffeine use. Current smoker. Smoking status: Former smoker. Alcohol: Alcohol use 2-3 beers daily. Drug Use: Not using drugs. ALLERGIES ? No Known Allergies FAMILY HISTORY No family history of cancer No family history of heart disease No family history of early deaths Family history unchanged No hypertension No depression REVIEW OF SYSTEMS Systemic: No recent weight change. Head: No headache. Otolaryngeal: No epistaxis. Cardiovascular: No chest pain or discomfort. Pulmonary: No dyspnea. Gastrointestinal: Appetite loss of appetite. Musculoskeletal: No muscle aches and no localized joint pain. Neurological: No dizziness. PHYSICAL FINDINGS ? Vitals taken 10/06/2012 08:19 am BP-Sitting 150/82 mmHg Pulse Rate-Sitting 73 bpm Respiration Rate 18 per min Temp-Oral 98.1 F Height 64 in Weight 119 lbs Body Mass Index 20.4 kg/m2 Body Surface Area 1.57 m2 Oxygen Saturation 99 % General Appearance: ?? Oriented to time, place, and person. ?? Well developed. ?? Well nourished. Neck: Suppleness: ?? Neck demonstrated no decrease in suppleness. Eyes: General/bilateral: Extraocular Movements: ?? Normal. Pupils: ?? PERRLA. Lungs: ?? Normal breath sounds/voice sounds. Cardiovascular: Heart Rate And Rhythm: ?? Normal. Abdomen: Palpation: ?? No abdominal tenderness. Skin: ?? General appearance was normal. ASSESSMENT ? Benign essential hypertension ? Hypothyroidism THERAPY ? Regular exercise. ? Frequent intake of oral fluids. ? Clinical summary provided to patient. COUNSELING/EDUCATION ? Diet PLAN ? OTHER Levothyroxine Sodium 88 MCG TABS, Once a day, 90 days, 1 refills Lisinopril 5 MG TABS, Once a day, 90 days, 1 refills ? CBC ? A comprehensive metabolic panel ? A lipid profile ? Serum TSH level T4 ? Serology for prostate-specific antigen ? Return to the clinic if condition worsens or new symptoms arise ? Follow-up visit in 4 months and 1 month Will start BP meds and inc Thyroid tab. Aneudy Jaeger MD Electronically signed by: Rupert Jaeger MD Date: 10/06/2012 11:38 R GRADER ROUGH GRADE documented in this encounter Miscellaneous Notes * Letter - Aneudy Jaeger MD - 10/06/2012 12:00 AM CST Visit Summary Dear Mr.Michael Adam Andrade This is a summary of your visit to our clinic on 10/06/2012 Your Problem List: Your Current Medication List: Cyclobenzaprine HCl 5 MG TABS, As needed, 0 days, 0 refills, every 8 hours prn Levothyroxine Sodium 25 MCG TABS, Once a day, 0 days, 0 refills Chief Complaint: The Chief Complaint is: To review meds to make sure he is on right dosage. Your Vital signs were: Vitals taken 10/06/2012 08:19 am BP-Sitting 150/82 mmHg Pulse Rate-Sitting 73 bpm Respiration Rate 18 per min Temp-Oral 98.1 F Height 64 in Weight 119 lbs Body Mass Index 20.4 kg/m2 Body Surface Area 1.57 m2 Oxygen Saturation 99 % Your Diagnosis on this visit: Benign essential hypertension Hypothyroidism List of Medications refilled, Tests ordered and your next recommended appointment : OTHER Levothyroxine Sodium 88 MCG TABS, Once a day, 90 days, 1 refills Lisinopril 5 MG TABS, Once a day, 90 days, 1 refills CBC A comprehensive metabolic panel A lipid profile Serum TSH level T4 Serology for prostate-specific antigen Return to the clinic if condition worsens or new symptoms arise Follow-up visit in 4 months and 1 month Will start BP meds and inc Thyroid tab. Counseling and Education, Health Reminders and other information: Diet Regular exercise. Frequent intake of oral fluids. Clinical summary provided to patient. R GRADER ROUGH GRADE documented in this encounter Plan of Treatment Upcoming Encounters Date Type Department Care Team (Late st Contact Info) Description 03/02/2025 11:00 AM CDT Appointment [facility] [address] Nickie Negron MD 331 [facility] 100 [place] [address] 04/07/2025 12:30 PM CDT Office Visit [facility] THREE [facility] [address] [place] [address] Nicolas Brown MD Three [facility]. [facility] [address] [place], [place] [address] documented as of this encounter Visit Diagnoses Not on filedocumented in this encounter Care Teams Reconsignment Clerk Relationship Specialty Start Date End Date Aneudy Jaeger MD PCP - General 08/26/14 08/25/24 documented as of this encounter
--- OUTSIDE RECORDS SUMMARY | 2024-10-27 10:48 | XMS_ITS | Encounter Summary ---
Author Organization [facility] Address [address] [place] [address]. [place] [address] [place] [address] Care Team Providers Care Purchase Price Analyst Name Role Phone Aneudy Jaeger MD Primary Care Provider [phone] Encounter Details Date Type Department Care Team (Late st Contact Info) Description 07/30/2001 Abstract [facility] [address] [place] [address] , Generic ConversionMD Social History Tobacco Use Types Packs/Day Years [...] Info) Description 03/02/2025 11:00 AM CDT Appointment [facility] [place] [place] [address] Nickie Negron MD 331 [facility] 100 [place] [address] 04/07/2025 12:30 PM CDT Office Visit [facility] THREE [facility], [address] [address] Nicolas Brown MD Three [facility]. [address] [id number] documented as of this encounter Visit Diagnoses Not on filedocumented in this encounter Care Teams Purchase Price Analyst Relationship Specialty Start Date End Date Aneudy Jaeger MD PCP - General 08/26/14 08/25/24 documented as of this encounter
--- OUTSIDE RECORDS SUMMARY | 2024-10-27 10:48 | XMS_ITS | Encounter Summary ---
Author Organization [facility] Address [address] [place] [address]. [place] [address] [place] [address] Care Team Providers Care Milk Pickup Driver Name Role Phone Aneudy Jeager MD Primary Care Provider [phone] Encounter Details Date Type Department Care Team (Late st Contact Info) Description 10/16/2002 Abstract [facility] [address] [place] [address] , Generic Conversion, Social History Tobacco Use [...] Info) Description 03/02/2025 11:00 AM CDT Appointment [facility] [place] [address] Nickie Negron MD 331 [facility] 100 [place] [address] 04/07/2025 12:30 PM CDT Office Visit [facility] THREE [facility], [address] [address] Nicolas Brown MD Three [facility]. [address] [address] documented as of this encounter Visit Diagnoses Not on filedocumented in this encounter Care Teams Milk Pickup Driver Relationship Specialty Start Date End Date Aneudy Jaeger MD PCP - General 08/26/14 08/25/24 documented as of this encounter
--- OUTSIDE RECORDS SUMMARY | 2024-10-27 10:48 | XMS_ITS | Encounter Summary ---
Author Organization [facility] Address [address] [place] [address]. [place] [address] [place] [address] Care Team Providers Care Tactical Response Group Officer Name Role Phone Aneudy Jaeger MD Primary Care Provider [phone] Encounter Details Date Type Department Care Team (Late st Contact Info) Description 10/10/2001 Abstract [facility] [address] [place] [address] , Generic Conversion, Social History Tobacco Use [...] Info) Description 03/02/2025 11:00 AM CDT Appointment [facility] [place] [address] Nickie Negron MD 331 [facility] 100 [place] [address] 04/07/2025 12:30 PM CDT Office Visit [facility] [address] [facility], [address] [address] Nicolas Brown MD Three [facility]. [address] [address] documented as of this encounter Visit Diagnoses Not on filedocumented in this encounter Care Teams Tactical Response Group Officer Relationship Specialty Start Date End Date Aneudy Jaeger MD PCP - General 08/26/14 08/25/24 documented as of this encounter
--- OUTSIDE RECORDS SUMMARY | 2024-10-27 10:48 | XMS_ITS | Encounter Summary ---
Author Organization [facility] Address [address] [place] [address]. [place] [address] [place] [address] Care Team Providers Care It Program Manager Name Role Phone Aneudy Jaeger MD Primary Care Provider [phone] Encounter Details Date Type Department Care Team (Late st Contact Info) Description 10/21/2011 Abstract [facility] [address] [place], [place] [address] Shree Jean-Baptiste MD [address] [facility] [address] [place] [address] Social History Tobacco Use Types Packs/Day Years [...] Info) Description 03/02/2025 11:00 AM CDT Appointment [facility] [place] [address] Nickie Negron MD 331 [facility] 100 [place] [address] 04/07/2025 12:30 PM CDT Office Visit [facility] THREE [facility] [address] [place], [place] [address] Nicolas Brown MD [address] [address] documented as of this encounter Visit Diagnoses Diagnosis Closed fracture of part of neck of femur (CMS/HCC HHS/HCC) Closed fracture of unspecified part of neck of femur documented in this encounter Care Teams It Program Manager Relationship Specialty Start Date End Date Aneudy Jaeger MD PCP - General 08/26/14 08/25/24 documented as of this encounter
--- OUTSIDE RECORDS SUMMARY | 2024-10-27 10:48 | XMS_ITS | Encounter Summary ---
Author Organization [facility] Address [address] [place] [address]. [place], [place] [address] [place] [address] Care Team Providers Care Edge Burnisher Uppers Name Role Phone Aneudy Jaeger MD Primary Care Provider [phone] Encounter Details Date Type Department Care Team (Late st Contact Info) Description 01/26/2013 Abstract [facility] [address] [place], [place] [address] Aneudy Jaeger MD [address] [place], [place] [id number] Social History Tobacco Use Types Packs/Day Years [...] Info) Description 03/02/2025 11:00 AM CDT Appointment [facility] [place] [address] Nickie Negron MD [address] [place] [address] 100 [place] [address] 04/07/2025 12:30 PM CDT Office Visit [facility] THREE [facility] [address] [place] [address] Nicolas Brown MD [facility]. [address] [address] documented as of this encounter Visit Diagnoses Diagnosis Essential hypertension Unspecified essential hypertension documented in this encounter Care Teams Edge Burnisher Uppers Relationship Specialty Start Date End Date Aneudy Jaeger MD PCP - General 08/26/14 08/25/24 documented as of this encounter
--- OUTSIDE RECORDS SUMMARY | 2024-10-27 10:48 | XMS_ITS | Encounter Summary ---
Author Organization [facility] Address [address] [place] [address]. [place], [place] [address] [place] [address] Care Team Providers Care Abstract Checker Name Role Phone Aneudy Jaeger MD Primary Care Provider [phone] Encounter Details Date Type Department Care Team (Late st Contact Info) Description 12/16/2013 Abstract [facility] Conversion Md, Generic Conversion, Social History Tobacco [...] Reading Time Taken Comments Blood Pressure 130/74 12/16/2013 8:45 AM PLAYROOM ATTENDANT Pulse 67 12/16/2013 8:45 AM PLAYROOM ATTENDANT Temperature - - Respiratory Rate - - Oxygen Saturation - - Inhaled Oxygen Concentration - - Weight 56.9 kg (125 lb 6 oz) 12/16/2013 8:45 AM PLAYROOM ATTENDANT Height 162.6 cm (5' 4 ) 12/16/2013 8:45 AM PLAYROOM ATTENDANT Body Mass Index 21.52 12/16/2013 8:45 AM PLAYROOM ATTENDANT documented in this encounter Progress Notes * Aneudy Jaeger MD - 12/16/2013 12:00 AM CST ACTIVE PROBLEMS ? Hypertension, Benign ? Hypothyroidism CHIEF COMPLAINT The Chief Complaint is: Pt here for regular check up. Needs new prescriptions due to ins. change. HISTORY OF PRESENT ILLNESS Julius Andrade is a 63 year old male. Pt is here for a f/u visit for HTN and Hypothyroidism.He is doing well.He takes his meds regularly.He denies chest pain nor SOB. CURRENT MEDICATION ? Aleve 220 MG CAPS, , 0 days, 0 refills, 2 daily ? Cyclobenzaprine HCl 5 MG TABS, As needed, 0 days, 0 refills, every 8 hours prn ? Daily Multi TABS, , 0 days, 0 refills, one daily ? Levothyroxine Sodium 25 MCG TABS, Once [...] OF SYSTEMS Systemic: No recent weight change. Neck: No neck pain. Otolaryngeal: No epistaxis. Cardiovascular: No chest pain or discomfort. Pulmonary: No dyspnea. Gastrointestinal: Normal appetite. Musculoskeletal: No muscle aches and no localized joint pain. Neurological: No dizziness. PHYSICAL FINDINGS ? Vitals taken 12/16/2013 08:45 am BP-Sitting 130/74 mmHg Pulse Rate-Sitting 67 bpm Respiration Rate 18 per min Temp-Oral 97.7 F Height 64 in Weight 125 lbs 6 oz Body Mass Index 21.5 kg/m2 Body Surface Area 1.60 m2 Oxygen Saturation 99 % General Appearance: ?? Oriented to time, place, and person. ?? Well developed. Neck: Suppleness: ?? Neck demonstrated no decrease [...] arise ? Follow-up visit in 6 months Aneudy Jaeger MD Electronically signed by: Rupert Jaeger MD Date: 12/18/2013 18:45 ROOM ATTENDANT documented in this encounter Miscellaneous Notes * Letter - Aneudy Jaeger MD - 12/16/2013 12:00 AM CST Visit Summary Dear Mr.Michael Adam Andrade This is a summary of your visit to our clinic on 12/16/2013 Your Problem List: Hypertension, Benign Hypothyroidism Your Current Medication List: Aleve 220 MG CAPS, , 0 days, 0 refills, 2 daily Cyclobenzaprine HCl 5 MG TABS, As needed, 0 days, 0 refills, every 8 hours prn Daily Multi TABS, , 0 days, 0 refills, one daily Levothyroxine Sodium 25 MCG TABS, Once a [...] refills Chief Complaint: The Chief Complaint is: Pt here for regular check up. Needs new prescriptions due to ins. change. Your Vital signs were: Vitals taken 12/16/2013 08:45 am BP-Sitting 130/74 mmHg Pulse Rate-Sitting 67 bpm Respiration Rate 18 per min Temp-Oral 97.7 F Height 64 in Weight 125 lbs 6 oz Body Mass Index 21.5 kg/m2 Body Surface Area 1.60 m2 Oxygen Saturation 99 % Your Diagnosis [...] symptoms arise Follow-up visit in 6 months Counseling and Education, Health Reminders and other information: Diet Regular exercise. Frequent intake of oral fluids. Continue current medication. Clinical summary provided to patient. ROOM ATTENDANT documented in this encounter Plan of Treatment Upcoming Encounters Date Type Department Care Team (Late st Contact Info) Description 03/02/2025 11:00 AM CDT Appointment [facility] [place] [address] Nickie Negron MD [address] [facility] 100 [place] [phone] 04/07/2025 12:30 PM CDT Office Visit [facility] THREE [facility], [facility] [address] [place], [place] [phone] Nicolas Brown MD Three [facility]. [facility] [address] [place], [place] [address] documented as of this encounter Visit Diagnoses Not on filedocumented in this encounter Care Teams Abstract Checker Relationship Specialty Start Date End Date Aneudy Jaeger MD PCP - General 08/26/14 08/25/24 documented as of this encounter
--- OUTSIDE RECORDS SUMMARY | 2024-10-27 10:48 | XMS_ITS | Encounter Summary ---
Author Organization [facility] Address [address] [place] [address]. [place] [address] [place] [address] Care Team Providers Care Avionics Installer Name Role Phone Aneudy Jaeger MD Primary Care Provider [phone] Encounter Details Date Type Department Care Team (Late st Contact Info) Description 10/08/2003 Abstract [facility] [address] [place] [address] , Generic Conversion, Social History Tobacco Use [...] Info) Description 03/02/2025 11:00 AM CDT Appointment [facility] [place] [place] [address] Nickie Negron MD 331 [facility] 100 [place] [address] 04/07/2025 12:30 PM CDT Office Visit [facility] [place] THREE [facility], [address] [address] Nicolas Brown MD [address] [facility]. [address] [address] documented as of this encounter Visit Diagnoses Not on filedocumented in this encounter Care Teams Avionics Installer Relationship Specialty Start Date End Date Aneudy Jaeger MD PCP - General 08/26/14 08/25/24 documented as of this encounter
--- OUTSIDE RECORDS SUMMARY | 2024-10-27 10:48 | XMS_ITS | Encounter Summary ---
Author Organization [facility] Address [address] [place] [address]. [place] [address] [place] [address] Care Team Providers Care Excavator Backhoe Operator Name Role Phone Aneudy Jaeger MD Primary Care Provider [phone] Encounter Details Date Type Department Care Team (Late st Contact Info) Description 09/27/1999 Abstract [facility] [address] [place] [address] , Generic ConversionMD Social History Tobacco Use [...] Info) Description 03/02/2025 11:00 AM CDT Appointment [facility] [place] [address] Nickie Negron MD [address] [facility] 100 [place] [phone] 04/07/2025 12:30 PM CDT Office Visit [facility] [place] THREE [facility], [address] [address] Nicolas Brown MD Three [facility]. [address] [address] documented as of this encounter Visit Diagnoses Not on filedocumented in this encounter Care Teams Excavator Backhoe Operator Relationship Specialty Start Date End Date Aneudy Jaeger MD PCP - General 08/26/14 08/25/24 documented as of this encounter
--- OUTSIDE RECORDS SUMMARY | 2024-10-27 10:48 | XMS_ITS | Encounter Summary ---
Author Organization [facility] Address [address] [place] [address]. [place], [place] [address] [place] [address] Care Team Providers Care Binder Technician Name Role Phone Aneudy Jaeger MD Primary Care Provider [phone] Encounter Details Date Type Department Care Team (Late st Contact Info) Description 02/04/2013 Abstract [facility] Conversion Md, Generic Conversion, Social History Tobacco Use Types Packs/Day Years Used Date Smoking Tobacco: Never Assessed Sex and Gender Information Value Date Recorded Sex Assigned at Not on file Legal Sex Male 4:24 PM CDT Gender Identity Not on file Sexual Orientation Not on file documented as of this encounter Last Filed Vital Signs Vital Sign [place] Time Taken Comments Blood Pressure 138/70 02/04/2013 8:45 AM CDT Pulse 60 02/04/2013 8:45 AM CDT Temperature - - Respiratory Rate - - Oxygen Saturation - - Inhaled Oxygen Concentration - - Weight 54.9 kg (121 lb) 02/04/2013 8:45 AM CDT Height 162.6 cm (5' 4 ) 02/04/2013 8:45 AM CDT Body Mass Index 20.77 02/04/2013 8:45 AM CDT documented in this encounter Progress Notes * Aneudy Jaeger MD - 02/04/2013 12:00 AM CDT ACTIVE PROBLEMS ? Hypertension, Benign ? Hypothyroidism CHIEF COMPLAINT The Chief Complaint is: Pt c/o left foot and ankle has been having pain. Pt here for check up and needs meds refilled. HISTORY OF PRESENT ILLNESS Julius Andrade is a 62 year old male. Pt is here for a f/u visit for HTN and Hypothyroidism. He is doing ok. He takes his meds regularly.He had blood works w/c showed normal lipids,CMP and TSH of 6.23.He denies chest pain or SOB.He also c/o pain on the left foot and ankle for 3 mos now.Pain is inc with pushing and pulling. CURRENT MEDICATION ? Cyclobenzaprine HCl 5 MG [...] a day, 90 days, 0 refills, increased PAST MEDICAL/SURGICAL HISTORY Reported: No recent change in medical history. SOCIAL HISTORY Social history unchanged. Behavioral: Smoking status: Current everyday smoker. ALLERGIES ? No Known Allergies FAMILY HISTORY Family history unchanged REVIEW OF SYSTEMS Systemic: No recent weight change. Head: No headache. Otolaryngeal: No epistaxis. Cardiovascular: No chest pain or discomfort. Pulmonary: No dyspnea. Gastrointestinal: Normal appetite. Musculoskeletal: Muscle aches left foot and pain localized to one or more joints left ankle. Neurological: No dizziness. PHYSICAL FINDINGS ? Vitals taken 02/04/2013 08:45 am BP-Sitting 138/70 mmHg Pulse Rate-Sitting 60 bpm Respiration Rate 18 per min Temp-Oral 98.1 F Height 64 in Weight 121 lbs Body Mass Index 20.8 kg/m2 Body Surface Area 1.58 m2 Oxygen Saturation 99 % General Appearance: ?? Oriented to time, place, and person. ?? Well developed. ?? Well nourished. Neck: Suppleness: ?? Neck demonstrated no decrease in suppleness. Eyes: General/bilateral: Extraocular Movements: ?? Normal. Pupils: ?? PERRLA. Lungs: ?? Normal breath sounds/voice sounds. Cardiovascular: Heart Rate And Rhythm: ?? Normal. Musculoskeletal System: General/bilateral: ? Overall findings left ankle - tender lateral side below the malleolus,Dorsiflexion causes pain. Skin: ?? General appearance was normal. ASSESSMENT ? Benign essential hypertension ? Hypothyroidism ? Tenosynovitis of the left ankle ? Joint derangement of the ankle/foot THERAPY ? Regular exercise. ? Frequent intake of oral fluids. ? Continue current medication. ? Clinical summary provided to patient. COUNSELING/EDUCATION ? Diet PLAN ? OTHER Levothyroxine Sodium 100 MCG TABS, Once a day, 90 days, 1 refills, increased Lisinopril 10 MG TABS, Once a day, 90 days, 1 refills Naprosyn 375 MG TABS, Twice a Day, 30 days, 0 refills ? Return to the clinic if condition worsens or new symptoms arise ? Follow-up visit in 6 months Will try NSAIDS x 2 weeks .If no better will do cortisone inj will inc Levothyroxine ANKLE BRACE TSH and T4 in 6 mos. Aneudy Jaeger MD Electronically signed by: Rupert Jaeger MD Date: 02/07/2013 07:25 N ROOM OPERATOR documented in this encounter Miscellaneous Notes * Letter - Aneudy Jaeger MD - 02/04/2013 12:00 AM CDT Visit Summary Dear Julius Medina [facility]re[facility] This is a summary of your visit to our clinic on 02/04/2013 Your Problem List: Hypertension, Benign Hypothyroidism Your [...] a day, 90 days, 0 refills, increased Chief Complaint: The Chief Complaint is: Pt c/o left foot and ankle has been having pain. Pt here for check up and needs meds refilled. Your Vital signs were: Vitals taken 02/04/2013 08:45 am BP-Sitting 138/70 mmHg Pulse Rate-Sitting 60 bpm Respiration Rate 18 per min Temp-Oral 98.1 F Height 64 in Weight 121 lbs Body Mass Index 20.8 kg/m2 Body Surface Area 1.58 m2 Oxygen Saturation 99 % Your Diagnosis on this visit: Benign essential hypertension Hypothyroidism Tenosynovitis of the left ankle Joint derangement of the ankle/foot List of Medications refilled, Tests ordered and your next recommended appointment : OTHER Levothyroxine Sodium 100 MCG TABS, Once a day, 90 days, 1 refills, increased Lisinopril 10 MG TABS, Once a day, 90 days, 1 refills Naprosyn 375 MG TABS, Twice a Day, 30 days, 0 refills Return to the clinic if condition worsens or new symptoms arise Follow-up visit in 6 months Will try NSAIDS x 2 weeks .If no better will do cortisone inj will inc Levothyroxine ANKLE BRACE TSH abd T4 in 6 mos. Counseling and Education, Health Reminders and other information: Diet Regular exercise. Frequent intake of oral fluids. Continue current medication. Clinical summary provided to patient. N ROOM OPERATOR documented in this encounter Plan of Treatment Upcoming Encounters Date Type Department Care Team (Late st Contact Info) Description 03/02/2025 11:[address] [facility] Out[facility] [place] [address] Nickie Negron MD [address] [place] [address] 100 [place] [address] 04/07/2025 12:30 PM CDT Office Visit [facility] [address] [facility], [address] [address] Nicolas Brown MD Three [facility]. [address] [address] documented as of this encounter Visit Diagnoses Not on filedocumented in this encounter Care Teams Binder Technician Relationship Specialty Start Date End Date Aneudy Jaeger MD PCP - General 08/26/14 08/25/24 documented as of this encounter
--- OUTSIDE RECORDS SUMMARY | 2024-10-27 10:48 | XMS_ITS | Encounter Summary ---
Author Organization [facility] Address [address] [place] [address]. [place] [address] [place] [address] Care Team Providers Care Film Splicer Name Role Phone Aneudy Jaeger MD Primary Care Provider [phone] Encounter Details Date Type Department Care Team (Late st Contact Info) Description 07/28/1998 Abstract [facility] [address] [place] [address] , Generic ConversionMD Social History Tobacco Use [...] Info) Description 03/02/2025 11:00 AM CDT Appointment [facility] [place] [address] Nickie Negron MD 331 [facility] 100 [place] [address] 04/07/2025 12:30 PM CDT Office Visit [facility] THREE [facility], [address] [address] Nicolas Brown MD Three [facility]. [address] [address] documented as of this encounter Visit Diagnoses Not on filedocumented in this encounter Care Teams Film Splicer Relationship Specialty Start Date End Date Aneudy Jaeger MD PCP - General 08/26/14 08/25/24 documented as of this encounter
--- OUTSIDE RECORDS SUMMARY | 2024-10-27 10:48 | XMS_ITS | Encounter Summary ---
Author Organization [facility] Address [address] [place] [address]. [place] [address] [place] [address] Care Team Providers Care Statistical Modeler Name Role Phone Aneudy Jaeger MD Primary Care Provider Encounter Details Date Type Department Care Team (Late st Contact Info) Description 10/07/2003 Abstract [facility] CON[facility] [address] [place] [address] , Generic Conversion, Social History Tobacco Use [...] Info) Description 03/02/2025 11:00 AM CDT Appointment [facility] [place] [address] Nickie Negron MD [address] [facility] 100 [place] [address] 04/07/2025 12:30 PM CDT Office Visit [facility] THREE [facility], [address] [address] Nicolas Brown MD Three [facility]. [address] [address] documented as of this encounter Visit Diagnoses Not on filedocumented in this encounter Care Teams Statistical Modeler Relationship Specialty Start Date End Date Aneudy Jaeger MD PCP - General 08/26/14 08/25/24 documented as of this encounter
--- OUTSIDE RECORDS SUMMARY | 2024-10-27 10:48 | XMS_ITS | Encounter Summary ---
Author Organization [facility] Address [address] [place] [address]. [place], [place] [address] [place] [address] Care Team Providers Care Substation Mechanic Name Role Phone Aneudy Jaeger MD Primary Care Provider [phone] Encounter Details Date Type Department Care Team (Late st Contact Info) Description 08/26/2014 Abstract [facility] [place] [address] Garrett Gregory MD [address] [address] Social History Tobacco Use Types Packs/Day Years [...] Info) Description 03/02/2025 11:00 AM CDT Appointment [facility] [place] [place] [address] Nickie Negron MD [address] [place] [address] 100 [place] [address] 04/07/2025 12:30 PM CDT Office Visit [place] THREE [facility], [address] [address] Nicolas Brown MD [address] [address] documented as of this encounter Visit Diagnoses Not on filedocumented in this encounter Care Teams Substation Mechanic Relationship Specialty Start Date End Date Aneudy Jaeger MD PCP - General 08/26/14 08/25/24 documented as of this encounter
--- OUTSIDE RECORDS SUMMARY | 2024-10-27 10:48 | XMS_ITS | Encounter Summary ---
Author Organization [facility] Address [address] [place] [address]. [place], [place] [address] [place] [address] Care Team Providers Care Associate Professor Of Violin Name Role Phone Aneudy Jaeger MD Primary Care Provider [phone] Encounter Details Date Type Department Care Team (Late st Contact Info) Description 04/04/2012 Abstract [facility] Conversion , Generic Conversion, Social History [...] Info) Description 03/02/2025 11:00 AM CDT Appointment [facility] [place]patient [place] [address] Nickie Negron MD [address] [place] [address] 100 [place] [address] 04/07/2025 12:30 PM CDT Office Visit [facility] THREE [facility] 1800 [place], [place] [phone] Nicolas Brown MD Three [facility] [place] [facility]. [facility] 1800 [place], [place] [phone] documented as of this encounter Visit Diagnoses Not on filedocumented in this encounter Care Teams Associate Professor Of Violin Relationship Specialty Start Date End Date Aneudy Jaeger MD PCP - General 08/26/14 08/25/24 documented as of this encounter
--- OUTSIDE RECORDS SUMMARY | 2024-10-27 10:48 | XMS_ITS | Encounter Summary ---
Author Organization [facility] Address [address] [place] [address]. [place] [address] [place] [address] Care Team Providers Care Mattress Maker Name Role Phone Aneudy Jaeger MD Primary Care Provider [phone] Encounter Details Date Type Department Care Team (Late st Contact Info) Description 04/23/2004 Abstract [facility] Emergency Room 15 [place] [address] , Gladys Gonzalez MD Social [...] Info) Description 03/02/2025 11:00 AM CDT Appointment [facility] Outpatient Transfusion [place] [address] Nickie Negron MD [address] [place] [address] 100 [place] [phone] 04/07/2025 12:30 PM CDT Office Visit [facility] THREE [facility], [address] [address] Nicolas Brown MD Three [facility]. [address] [address] documented as of this encounter Visit Diagnoses Not on filedocumented in this encounter Care Teams Mattress Maker Relationship Specialty Start Date End Date Aneudy Jaeger MD PCP - General 08/26/14 08/25/24 documented as of this encounter
--- OUTSIDE RECORDS SUMMARY | 2024-10-27 10:48 | XMS_ITS | Encounter Summary ---
Author Organization [facility] Address [address] [place] [address]. [place] [address] [place] [address] Care Team Providers Care Quarter Doper Name Role Phone Aneudy Jaeger MD Primary Care Provider [phone] Encounter Details Date Type Department Care Team (Late st Contact Info) Description 11/17/2008 Abstract [facility] Emergency Room [address] [place] [address] , Gladys Gonzalez MD Social History [...] Info) Description 03/02/2025 11:00 AM CDT Appointment [facility] Outpatient Transfusion [place] [address] Nickie Negron MD [address] [place] [address] 100 [place] [address] 04/07/2025 12:30 PM CDT Office Visit [facility] THREE [facility], [address] [address] Nicolas Brown MD Three [facility]. [address] [address] documented as of this encounter Visit Diagnoses Not on filedocumented in this encounter Care Teams Quarter Doper Relationship Specialty Start Date End Date Aneudy Jaeger MD PCP - General 08/26/14 08/25/24 documented as of this encounter
--- OUTSIDE RECORDS SUMMARY | 2024-10-27 10:48 | XMS_ITS | Encounter Summary ---
Author Organization [facility] Address [address] [place] [address]. [place] [address] [place] [address] Care Team Providers Care Network Announcer Name Role Phone Aneudy Jaeger MD Primary Care Provider [phone] Encounter Details Date Type Department Care Team (Late Contact Info) Description 02/04/2013 Abstract [facility] CON[facility] [address] [place], [place] [address] Aneudy Jaeger MD [address] [place], [place] [id number] Social History Tobacco Use Types Packs/Day Years [...] Info) Description 03/02/2025 11:00 AM CDT Appointment [facility] [place] [address] Nickie Negron MD 331 [facility] 100 [place] [address] 04/07/2025 12:30 PM CDT Office Visit Sim [place] THREE [facility] 1800 [place] [address] Nicolas Brown MD [address] [address] documented as of this encounter Visit Diagnoses Diagnosis Pain in joint, ankle and foot documented in this encounter Care Teams Network Announcer Relationship Specialty Start Date End Date Aneudy Jaeger MD PCP - General 08/26/14 08/25/24 documented as of this encounter
--- OUTSIDE RECORDS SUMMARY | 2024-10-27 10:48 | XMS_ITS | Encounter Summary ---
Author Organization [facility] Address [address] [place] [address]. [place], [place] [address] [place] [address] Care Team Providers Care Public Relations Writer Name Role Phone Aneudy Jaeger MD Primary Care Provider Encounter Details Date Type Department Care Team (Late st Contact Info) Description 02/04/[address] [facility] Conversion , Generic Conversion, Social History [...] Description 03/02/2025 11:[address] [facility] Outpatient [place] [address] Nickie Negron MD [address] [place] [address] 100 [place] [address] 04/07/2025 12:30 PM CDT Office Visit [facility] THREE [facility] 1800 [place], [place] [phone] Nicolas Brown MD Three [facility]. [facility] 1800 [place], [place] [phone] documented as of this encounter Visit Diagnoses Not on filedocumented in this encounter Care Teams Public Relations Writer Relationship Specialty Start Date End Date Aneudy Jaeger MD PCP - General 08/26/14 08/25/24 documented as of this encounter
--- OUTSIDE RECORDS SUMMARY | 2024-10-27 10:48 | XMS_ITS | Encounter Summary ---
Author Organization [facility] Address [address] [place] [address]. [place] [address] [place] [address] Care Team Providers Care Casting Machine Adjuster Name Role Phone Aneudy Jaeger MD Primary Care Provider [phone] Encounter Details Date Type Department Care Team (Late Contact Info) Description 10/21/2011 Abstract [facility] Emergency Room 9515 [place] [address] Devan Judd MD [address] [facility] 50 [place] [address] Social History Tobacco Use Types Packs/Day Years [...] 03/02/2025 11:00 AM CDT Appointment [facility] [place] [address] Nickie Negron MD [address] [facility] 100 [place] [address] 04/07/2025 12:30 PM CDT Office Visit [place] THREE [facility] [place] [address] [place], [place] [address] Nicolas Brown MD [address] [address] documented as of this encounter Visit Diagnoses Diagnosis Other closed transcervical fracture of femur ([facility]/HCC) Other closed transcervical fracture of femur documented in this encounter Care Teams Casting Machine Adjuster Relationship Specialty Start Date End Date Aneudy Jaeger MD PCP - General 08/26/14 08/25/24 documented as of this encounter
--- OUTSIDE RECORDS SUMMARY | 2024-10-27 10:48 | XMS_ITS | Encounter Summary ---
Author Organization [facility] Address [address] [place] [address]. [place], [place] [address] [place] [address] Care Team Providers Care Eligibility Analyst Name Role Phone Aneudy Jaeger MD Primary Care Provider [phone] Encounter Details Date Type Department Care Team (Late st Contact Info) Description 10/03/2012 Abstract [facility] Care Laboratory [address] [place] [address] Aneudy Jaeger MD [address] [place], [place] [id number] Social History Tobacco Use Types Packs/Day Years [...] Info) Description 03/02/2025 11:00 AM CDT Appointment [facility] [place] [place] [address] Nickie Negron MD [address] [place] [address] 100 [place] [address] 04/07/2025 12:30 PM CDT Office Visit [facility] THREE [facility] 1800 [place] [address] Nicolas Brown MD [address] [address] documented as of this encounter Visit Diagnoses Diagnosis Hypothyroidism Unspecified hypothyroidism documented in this encounter Care Teams Eligibility Analyst Relationship Specialty Start Date End Date Aneudy Jaeger MD PCP - General 08/26/14 08/25/24 documented as of this encounter
--- OUTSIDE RECORDS SUMMARY | 2024-10-27 10:48 | XMS_ITS | Encounter Summary ---
Author Organization [facility] Address [address] [place] [address]. [place] [address] [place] [address] Care Team Providers Care Field Education Director Name Role Phone Aneudy Jaeger MD Primary Care Provider [phone] Encounter Details Date Type Department Care Team (Late st Contact Info) Description 01/01/2007 Abstract [facility] [address] [place] [address] Ted Roberts MD [address] [facility] [place] [address] [place] [address] Social History Tobacco Use Types Packs/Day Years [...] Info) Description 03/02/2025 11:00 AM CDT Appointment [facility] ONE [facility] [address] Nickie Negron MD 331 [facility] 100 [place] [address] 04/07/2025 12:30 PM CDT Office Visit [place] THREE [facility], [place] [address] [place] [address] Nicolas Brown MD [address] [address] documented as of this encounter Visit Diagnoses Not on filedocumented in this encounter Care Teams Field Education Director Relationship Specialty Start Date End Date Aneudy Jaeger MD PCP - General 08/26/14 08/25/24 documented as of this encounter
--- OUTSIDE RECORDS SUMMARY | 2024-10-27 10:48 | XMS_ITS | Encounter Summary ---
Author Organization [facility] Address [address] [place] [address]. [place], [place] [address] [place] [address] Care Team Providers Care Reduction Plant Supervisor Name Role Phone Aneudy Jaeger MD Primary Care Provider [phone] Encounter Details Date Type Department Care Team (Late st Contact Info) Description 02/18/2013 Abstract [facility] Conversion Md, Generic Conversion, Social History Tobacco Use Types Packs/Day Years Used Date Smoking Tobacco: Never Assessed Sex and Gender Information Value Date Recorded Sex Assigned at Not on file Legal Sex Male 4:24 PM CDT Gender Identity Not on file Sexual Orientation Not on file documented as of this encounter Last Filed Vital Signs Vital Sign Reading Time Taken Comments Blood Pressure 90/64 02/18/2013 8:45 AM CDT Pulse 61 02/18/2013 8:45 AM CDT Temperature - - Respiratory Rate - - Oxygen Saturation - - Inhaled Oxygen Concentration - - Weight 55.8 kg (123 lb) 02/18/2013 8:45 AM CDT Height 162.6 cm (5' 4 ) 02/18/2013 8:45 AM CDT Body Mass Index 21.11 02/18/2013 8:45 AM CDT documented in this encounter Progress Notes * Aneudy Jaeger MD - 02/18/2013 12:00 AM CDT ACTIVE PROBLEMS ? Hypertension, Benign ? Hypothyroidism CHIEF COMPLAINT The Chief Complaint is: F/u on Lt foot. HISTORY OF PRESENT ILLNESS Julius Andrade is a 62 year old male. Pt is here for f/u pain on the left foot and ankle.It is better but still with mild soreness.Able to walk fine.Worked 10 hrs last night w/o any inc of foot pain.Denies dizziness nor lightheadedness.No melena nor hematochezia. CURRENT MEDICATION ? Cyclobenzaprine HCl 5 MG [...] dyspnea. Gastrointestinal: Normal appetite. Musculoskeletal: No muscle aches. Pain localized to one or more joints - better. Neurological: No dizziness. PHYSICAL FINDINGS ? Vitals taken 02/18/2013 08:45 am BP-Sitting 90/64 mmHg Pulse Rate-Sitting 61 bpm Respiration Rate 20 per min Temp-Oral 98.3 F Height 64 in Weight 123 lbs Body Mass Index 21.1 kg/m2 Body Surface Area 1.59 m2 Oxygen Saturation 96 % General Appearance: ?? Oriented to time, place, and person. ?? Well developed. ?? Well nourished. Neck: Suppleness: ?? Neck demonstrated no decrease in suppleness. Eyes: General/bilateral: Extraocular Movements: ?? Normal. Pupils: ?? PERRLA. Lungs: ?? Normal breath sounds/voice sounds. Cardiovascular: Heart Rate And Rhythm: ?? Normal. Musculoskeletal System: General/bilateral: ? Overall findings left ankle - lateral - sore,no swelling,FROM. Skin: ?? General appearance was normal. ASSESSMENT ? Tenosynovitis of the left ankle ? Tenosynovitis of the left foot THERAPY ? Regular exercise. ? Frequent intake of oral fluids. ? Continue current medication. ? Clinical summary provided to patient. COUNSELING/EDUCATION ? Diet PLAN ? Return to the clinic if condition worsens or new symptoms arise Cut down Naprosyn to 1 tab daily if flares up again will do cortisone injection. Aneudy Jaeger MD Electronically signed by: Rupert Jaeger MD Date: 02/18/2013 11:13 OL BUS ATTENDANT documented in this encounter Miscellaneous Notes * Letter - Aneudy Jaeger MD - 02/18/2013 12:00 AM CDT Visit Summary Dear Julius Medina Contrerascristinachristian This is a summary of your visit to our clinic on 02/18/2013 Your Problem List: Hypertension, Benign Hypothyroidism Your [...] refills Chief Complaint: The Chief Complaint is: F/u on Lt foot. Your Vital signs were: Vitals taken 02/18/2013 08:45 am BP-Sitting 90/64 mmHg Pulse Rate-Sitting 61 bpm Respiration Rate 20 per min Temp-Oral 98.3 F Height 64 in Weight 123 lbs Body Mass Index 21.1 kg/m2 Body Surface Area 1.59 m2 Oxygen Saturation 96 % Your Diagnosis on this visit: Tenosynovitis of the left ankle Tenosynovitis of the left foot List of Medications refilled, Tests ordered and your next recommended appointment : Return to the clinic if condition worsens or new symptoms arise Cut down Naprosyn to 1 tab daily if flares up again will do cortisone injection. Counseling and Education, Health Reminders and other information: Diet Regular exercise. Frequent intake of oral fluids. Continue current medication. Clinical summary provided to patient. OL BUS ATTENDANT documented in this encounter Plan of Treatment Upcoming Encounters Date Type Department Care Team (Late st Contact Info) Description 03/02/2025 11:00 AM CDT Appointment [facility] Outpatient Transfusion [place] [address] Nickie Negron MD 331 [facility] 100 [place] [address] 04/07/2025 12:30 PM CDT Office Visit [facility] THREE [facility] [place] 1800 [place], [place] [address] Nicolas Brown MD Three [facility]. [address] [address] documented as of this encounter Visit Diagnoses Not on filedocumented in this encounter Care Teams Reduction Plant Supervisor Relationship Specialty Start Date End Date Aneudy Jaeger MD PCP - General 08/26/14 08/25/24 documented as of this encounter
--- OUTSIDE RECORDS SUMMARY | 2024-10-27 10:48 | XMS_ITS | Encounter Summary ---
Author Organization [facility] Address [address] [place] [address]. [place], [place] [address] [place] [address] Care Team Providers Care Application Software Developer Name Role Phone Aneudy Jaeger MD Primary Care Provider [phone] Encounter Details Date Type Department Care Team (Late st Contact Info) Description 10/06/2012 Abstract [facility] Conversion , Generic Conversion, Social History [...] [facility] [place] [address] Nickie Negron MD [address] [place] [address] 100 [place] [address] 04/07/2025 12:30 PM CDT Office Visit [facility] [address] [facility], [facility] 1800 [place], [place] [phone] Nicolas Brown MD Three [facility]. [facility] 1800 [place], [place] [phone] documented as of this encounter Visit Diagnoses Not on filedocumented in this encounter Care Teams Application Software Developer Relationship Specialty Start Date End Date Aneudy Jaeger MD PCP - General 08/26/14 08/25/24 documented as of this encounter
--- OUTSIDE RECORDS SUMMARY | 2024-10-27 10:48 | XMS_ITS | Encounter Summary ---
Author Organization [facility] Address [address] [place] [address]. [place], [place] [address] [place] [address] Care Team Providers Care Early Interventionist Name Role Phone Aneudy Jaeger MD Primary Care Provider [phone] Encounter Details Date Type Department Care Team (Late st Contact Info) Description 06/13/2012 Abstract [facility] Care Laboratory [address] [place] [address] Aneudy Jaeger MD 950 [place] [address] Social History Tobacco Use Types [...] Info) Description 03/02/2025 11:00 AM CDT Appointment [facility] [place] [address] Nickie Negron MD [address] [place] [address] 100 [place] [address] 04/07/2025 12:30 PM CDT Office Visit Sim [facility] THREE [facility], [facility] 1800 [place] [address] Nicolas Brown MD [address] [address] documented as of this encounter Visit Diagnoses Diagnosis Hypothyroidism Unspecified hypothyroidism documented in this encounter Care Teams Early Interventionist Relationship Specialty Start Date End Date Aneudy Jaeger MD PCP - General 08/26/14 08/25/24 documented as of this encounter
--- OUTSIDE RECORDS SUMMARY | 2024-10-27 10:48 | XMS_ITS | Encounter Summary ---
Author Organization [facility] Address [address] [place] [address]. [place] [address] [place] [address] Care Team Providers Care Account Service Associate Name Role Phone Aneudy Jaeger MD Primary Care Provider [phone] Encounter Details Date Type Department Care Team (Late st Contact Info) Description 12/11/2006 Abstract [facility] CON[facility] 9515 [place] [address] , Generic Conversion, Social History Tobacco Use [...] Info) Description 03/02/2025 11:00 AM CDT Appointment [facility] [place] [address] Nickie Negron MD 331 [facility] 100 [place] [address] 04/07/2025 12:30 PM CDT Office Visit [place] THREE [facility], [address] [address] Nicolas Brown MD Three [facility]. [address] [address] documented as of this encounter Visit Diagnoses Not on filedocumented in this encounter Care Teams Account Service Associate Relationship Specialty Start Date End Date Aneudy Jaeger MD PCP - General 08/26/14 08/25/24 documented as of this encounter
--- OUTSIDE RECORDS SUMMARY | 2024-10-27 10:48 | XMS_ITS | Encounter Summary ---
Author Organization [facility] Address [address] [place] [address]. [place], [place] [address] [place] [address] Care Team Providers Care Mammal Keeper Name Role Phone Aneudy Jaeger MD Primary Care Provider [phone] Encounter Details Date Type Department Care Team (Late st Contact Info) Description 06/11/2012 Abstract [facility] Conversion , Generic Conversion, Social [...] Info) Description 03/02/2025 11:00 AM CDT Appointment [facility] Outpatient [place] [address] Nickie Negron MD [address] [place] [address] 100 [place] [address] 04/07/2025 12:30 PM CDT Office Visit [facility] THREE [facility], [facility] 1800 [place], [place] [address] Nicolas Brown MD Three [facility]. [facility] 1800 [place], [place] [address] documented as of this encounter Visit Diagnoses Not on filedocumented in this encounter Care Teams Mammal Keeper Relationship Specialty Start Date End Date Aneudy Jaeger MD PCP - General 08/26/14 08/25/24 documented as of this encounter
--- OUTSIDE RECORDS SUMMARY | 2024-10-27 10:48 | XMS_ITS | Encounter Summary ---
Author Organization [facility] Address [address] [place] [address]. [place], [place] [address] [place] [address] Care Team Providers Care Conduit Worker Name Role Phone Aneudy Jaeger MD Primary Care Provider Encounter Details Date Type Department Care Team (Late st Contact Info) Description 06/23/2012 Abstract [facility] Conversion Aneudy Jaeger MD [address] [place] [address] Social History Tobacco Use Types Packs/Day Years Used Date Smoking Tobacco: Never Assessed Sex and Gender Information Value Date Recorded Sex Assigned at Not on file Legal Sex Male 4:24 PM CDT Gender Identity Not on file Sexual Orientation Not on file documented as of this encounter Progress Notes * Aneudy Jageer MD - 06/23/2012 12:00 AM CDT Patient Name: Julius Andarde : 1950 Date: 06/23/2012 Dictated By: Pt notified of thyroid level low, and that he needs to increase his dose. He voiced understanding. New script faxed to [facility]. Electronically approved by: Sultana Escudero Date: 06/23/12 10:21 DESIGNER/CREATIVE DIRECTOR documented in this encounter Plan of Treatment Upcoming Encounters Date Type Department Care Team (Late st Contact Info) Description 03/02/2025 11:[address] [facility] ONE [facility] [place] [address] Nickie Negron MD [address] [place] 100 [place] [address] 04/07/2025 12:30 PM CDT Office Visit [facility] THREE [facility], [facility] [address] [place], [place] [address] Nicolas Brown MD Three [facility]. [facility] [address] [place] [address] documented as of this encounter Visit Diagnoses Not on filedocumented in this encounter Care Teams Conduit Worker Relationship Specialty Start Date End Date Aneudy Jaeger MD PCP - General 08/26/14 08/25/24 documented as of this encounter
--- OUTSIDE RECORDS SUMMARY | 2024-10-27 10:48 | XMS_ITS | Encounter Summary ---
Author Organization [facility] Address [address] [place] [address]. [place] [address] [place] [address] Care Team Providers Care Weight And Test Bar Clerk Name Role Phone Aneudy Jaeger MD Primary Care Provider [phone] Encounter Details Date Type Department Care Team (Late st Contact Info) Description 07/03/2001 Abstract [facility] 9515 [place] [address] , Generic Conversion, Social History Tobacco Use [...] Info) Description 03/02/2025 11:00 AM CDT Appointment [facility] [place] [address] Nickie Negron MD 331 [facility] 100 [place] [address] 04/07/2025 12:30 PM CDT Office Visit [place] THREE [facility], [address] [address] Nicolas Brown MD Three [facility]. [address] [address] documented as of this encounter Visit Diagnoses Not on filedocumented in this encounter Care Teams Weight And Test Bar Clerk Relationship Specialty Start Date End Date Aneudy Jaeger MD PCP - General 08/26/14 08/25/24 documented as of this encounter
--- OUTSIDE RECORDS SUMMARY | 2024-10-27 10:48 | XMS_ITS | Encounter Summary ---
Author Organization [facility] Address [address] [place] [address]. [place], [place] [address] [place] [address] Care Team Providers Care Winch Operator Name Role Phone Aneudy Jaeger MD Primary Care Provider [phone] Encounter Details Date Type Department Care Team (Late st Contact Info) Description 09/09/2013 Abstract [facility] Conversion , Generic Conversion, Social [...] Info) Description 03/02/2025 11:00 AM CDT Appointment [facility] Outpatient [place]fusion [place] [address] Nickie Negron MD [address] [place] [address] 100 [place] [address] 04/07/2025 12:30 PM CDT Office Visit [facility] THREE [facility], [facility] 1800 [place], [place] [address] Nicolas Brown MD Three [facility] [place] [facility]. [facility] 1800 [place], [place] [address] documented as of this encounter Visit Diagnoses Not on filedocumented in this encounter Care Teams Winch Operator Relationship Specialty Start Date End Date Aneudy Jaeger MD PCP - General 08/26/14 08/25/24 documented as of this encounter
--- OUTSIDE RECORDS SUMMARY | 2024-10-27 10:48 | XMS_ITS | Encounter Summary ---
Author Organization [facility] Address [address] [place] [address]. [place] [address] [place] [address] Care Team Providers Care Union Carpenter Name Role Phone Aneudy Jaeger MD Primary Care Provider [phone] Encounter Details Date Type Department Care Team (Late st Contact Info) Description 07/25/2001 Abstract [facility] 9515 [place] [address] , Generic Conversion, Social History Tobacco Use [...] Info) Description 03/02/2025 11:00 AM CDT Appointment [facility] [place] [address] Nickie Negron MD 331 [facility] 100 [place] [address] 04/07/2025 12:30 PM CDT Office Visit [place] THREE [facility], [address] [address] Nicolas Brown MD Three [facility]. [address] [address] documented as of this encounter Visit Diagnoses Not on filedocumented in this encounter Care Teams Union Carpenter Relationship Specialty Start Date End Date Aneudy Jaeger MD PCP - General 08/26/14 08/25/24 documented as of this encounter
--- OUTSIDE RECORDS SUMMARY | 2024-10-27 10:48 | XMS_ITS | Encounter Summary ---
Author Organization [facility] Address [address] [place] [address]. [place] [address] [place] [address] Care Team Providers Care Court Interpreter Name Role Phone Aneudy Jaeger MD Primary Care Provider [phone] Encounter Details Date Type Department Care Team (Late st Contact Info) Description 10/21/2011 Abstract [facility] Diagnostic Imaging 9515 [place] [address] Shree Jean-Baptiste MD [address] [facility] 950 [place] [address] Social History Tobacco Use Types [...] Info) Description 03/02/2025 11:00 AM CDT Appointment [facility] [address] [facility] [place] [address] Nickie Negron MD 331 [facility] 100 [place] [address] 04/07/2025 12:30 PM CDT Office Visit [place] THREE [facility], [place] [address] [place], [place] [address] Nicolas Brown MD [address] [address] documented as of this encounter Visit Diagnoses Diagnosis Pain in soft tissues of limb Pain in limb documented in this encounter Care Teams Court Interpreter Relationship Specialty Start Date End Date Aneudy Jaeger MD PCP - General 08/26/14 08/25/24 documented as of this encounter
--- OUTSIDE RECORDS SUMMARY | 2024-10-27 10:48 | XMS_ITS | Encounter Summary ---
Author Organization [facility] Address [address] [place] [address]. [place], [place] [address] [place] [address] Care Team Providers Care Reconciliation Specialist Name Role Phone Aneudy Jaeger MD Primary Care Provider [phone] Encounter Details Date Type Department Care Team (Late st Contact Info) Description 12/16/2013 Abstract [facility] Conversion , Generic Conversion, Social History Tobacco [...] Info) Description 03/02/2025 11:00 AM CDT Appointment [facility] Outpatient [place] [address] Nickie Negron MD [address] [place] [address] 100 [place] [address] 04/07/2025 12:30 PM CDT Office Visit [place] [facility] THREE [facility], [facility] 1800 [place], [place] [phone] Nicolas Brown MD Three [facility]. [facility] 1800 [place], [place] [address] documented as of this encounter Visit Diagnoses Not on filedocumented in this encounter Care Teams Reconciliation Specialist Relationship Specialty Start Date End Date Aneudy Jaeger MD PCP - General 08/26/14 08/25/24 documented as of this encounter
--- OUTSIDE RECORDS SUMMARY | 2024-10-27 10:48 | XMS_ITS | Encounter Summary ---
Author Organization [facility] Address [address] [place] [address]. [place], [place] [address] [place] [address] Care Team Providers Care Ship Rigger Name Role Phone Aneudy Jaeger MD Primary Care Provider [phone] Encounter Details Date Type Department Care Team (Late st Contact Info) Description 08/19/2013 Abstract [facility] Conversion , Generic Conversion, Social [...] Info) Description 03/02/2025 11:00 AM CDT Appointment [facility] Outpatient [place] [address] Nickie Negron MD [address] [place] [address] 100 [place] [address] 04/07/2025 12:30 PM CDT Office Visit [place] [facility] THREE [facility], [facility] 1800 [place], [place] [address] Nicolas Brown MD Three [place]. [facility] 1800 [place], [place] [phone] documented as of this encounter Visit Diagnoses Not on filedocumented in this encounter Care Teams Ship Rigger Relationship Specialty Start Date End Date Aneudy Jaeger MD PCP - General 08/26/14 08/25/24 documented as of this encounter
--- OUTSIDE RECORDS SUMMARY | 2024-10-27 10:48 | XMS_ITS | Encounter Summary ---
Author Organization [facility] Address [address] [place] [address]. [place] [address] [place] [address] Care Team Providers Care Electrical Engineering Professor Name Role Phone Aneudy Jaeger MD Primary Care Provider [phone] Encounter Details Date Type Department Care Team (Late st Contact Info) Description 10/19/2003 Abstract [facility] CONVERSION [address] [place] [address] , Generic Conversion, Social History Tobacco Use [...] Info) Description 03/02/2025 11:00 AM CDT Appointment [facility] [place] [address] Nickie Negron MD 331 [facility] 100 [place] [phone] 04/07/2025 12:30 PM CDT Office Visit [place] THREE [facility], [address] [address] Nicolas Brown MD Three [facility]. [address] [address] documented as of this encounter Visit Diagnoses Not on filedocumented in this encounter Care Teams Electrical Engineering Professor Relationship Specialty Start Date End Date Aneudy Jaeger MD PCP - General 08/26/14 08/25/24 documented as of this encounter
--- OUTSIDE RECORDS SUMMARY | 2024-10-27 10:48 | XMS_ITS | Encounter Summary ---
Author Organization [facility] Address [address] [place] [address]. [place], [place] [address] [place] [address] Care Team Providers Care Suture Polisher Name Role Phone Aneudy Jaeger MD Primary Care Provider [phone] Encounter Details Date Type Department Care Team (Late st Contact Info) Description 09/08/2013 Abstract [facility] Conversion Aneudy Jaeger MD [address] [place] [address] Social History Tobacco Use Types Packs/Day Years Used Date Smoking Tobacco: Never Assessed Sex and Gender Information Value Date Recorded Sex Assigned at Not on file Legal Sex Male 4:24 PM CDT Gender Identity Not on file Sexual Orientation Not on file documented as of this encounter Progress Notes * Aneudy Jaeger MD - 09/08/2013 12:00 AM CST Patient Name: Julius Andrade : 1950 Date: 09/08/2013 Dictated By: Caridad Gutiérrez LPN MD reviewed lab values with orders to have pt make appt to discuss lab values and have meds refilled. Patient notified and appt made for tomorrow 09.09.13. Electronically approved by: Caridad Gutiérrez Date: 09/08/13 11:47 TER SUPERVISOR documented in this encounter Plan of Treatment Upcoming Encounters Date Type Department Care Team (Late st Contact Info) Description 03/02/2025 11:00 AM CDT Appointment [facility] Trans[facility] Services [facility] [address] Nickie Negron MD 331 [facility] 100 [place] [phone] 04/07/2025 12:30 PM CDT Office Visit [facility] THREE [facility], [facility] [address] [place] [address] Nicolas Brown MD Three [facility]. [facility] [address] [place] [address] documented as of this encounter Visit Diagnoses Not on filedocumented in this encounter Care Teams Suture Polisher Relationship Specialty Start Date End Date Aneudy Jaeger MD PCP - General 08/26/14 08/25/24 documented as of this encounter
--- OUTSIDE RECORDS SUMMARY | 2024-10-27 10:48 | XMS_ITS | Encounter Summary ---
Author Organization [facility] Address [address] [place] [address]. [place], [place] [address] [place] [address] Care Team Providers Care Coding File Clerk Name Role Phone Aneudy Jaeger MD Primary Care Provider Encounter Details Date Type Department Care Team (Late st Contact Info) Description 03/16/2013 Abstract [facility] Conversion Md, Generic Conversion, [...] Sign Reading Time Taken Comments Blood Pressure 134/66 03/16/2013 2:30 PM CDT Pulse 60 03/16/2013 2:30 PM CDT Temperature - - Respiratory Rate - - Oxygen Saturation - - Inhaled Oxygen Concentration - - Weight 53.1 kg (117 lb) 03/16/2013 2:30 PM CDT Height 162.6 cm (5' 4 ) 03/16/2013 2:30 PM CDT Body Mass Index 20.08 03/16/2013 2:30 PM CDT documented in this encounter Progress Notes * Aneudy Jaeger MD - 03/16/2013 12:00 AM CDT ACTIVE PROBLEMS ? Hypertension, Benign ? Hypothyroidism CHIEF COMPLAINT The Chief Complaint is: Pt states fingers in right hand feel like they go numb and fall asleep. Pt c/o right elbow pain. This started last night. HISTORY OF PRESENT ILLNESS Julius Andrade is a 62 year old male. Pt is here for evaluation and treatment of right elbow pain on medial side.He was unable to sleep bec of pain.Applied tiger balm with mild temporary relief only.Also noted tingling sensation of rightfingers more on the ulnar side. CURRENT MEDICATION ? Cyclobenzaprine HCl 5 MG [...] Pain localized to one or more joints right elbow. Neurological: No dizziness. PHYSICAL FINDINGS ? Vitals taken 03/16/2013 02:30 pm BP-Sitting 134/66 mmHg Pulse Rate-Sitting 60 bpm Respiration Rate 18 per min Temp-Oral 98.1 F Height 64 in Weight 117 lbs [...] Normal. Musculoskeletal System: General/bilateral: ? Overall findings right elbow,medial side - tender on the epicondyle and groovearea. Skin: ?? General appearance was normal. ASSESSMENT ? Medial epicondylitis,right THERAPY ? Regular exercise. ? Frequent intake of oral fluids. ? Continue current medication. ? Clinical summary provided to patient. COUNSELING/EDUCATION ? Diet PLAN ? Return to the clinic if condition worsens or new symptoms arise The right elbow,medial side was cleaned with betadine and alcohol.Then solumedrol 40 mg +1 cc xylocaine was injected into right elbow,medial side.Pt tolerated the procedure. Aneudy Jaeger MD Electronically signed by: Rupert Jaeger MD Date: 03/29/2013 20:57 WHINA documented in this encounter Miscellaneous Notes * Letter - Aneudy Jaeger MD - 03/16/2013 12:00 AM CDT Visit Summary Dear Mr.Michael Adam Andrade This is a summary of your visit to our clinic on 03/16/2013 Your Problem List: Hypertension, Benign Hypothyroidism Your [...] Chief Complaint: The Chief Complaint is: Pt states fingers in right hand feel like they go numb and fall asleep. Pt c/o right elbow pain. This started last night. Your Vital signs were: Vitals taken 03/16/2013 02:30 pm BP-Sitting 134/66 mmHg Pulse Rate-Sitting 60 bpm Respiration Rate 18 per min Temp-Oral 98.1 F Height 64 in Weight 117 lbs Body Mass Index 20.1 kg/m2 Body Surface Area 1.56 m2 Oxygen Saturation 99 % Your Diagnosis on this visit: List of Medications refilled, Tests ordered and your next recommended appointment : Counseling and Education, Health Reminders and other information: Clinical summary provided to patient. WHINA documented in this encounter Plan of Treatment Upcoming Encounters Date Type Department Care Team (Late st Contact Info) Description 03/02/2025 11:00 AM CDT Appointment [facility] Outpatient Transfusion Services [facility] [place] [address] Nickie Negron MD 331 [facility] 100 [place] [address] 04/07/2025 12:30 PM CDT Office Visit [facility] THREE [facility], [facility] [address] [place], [place] [address] Nicolas Brown MD Three [facility]. [facility] [address] [place], [place] [address] documented as of this encounter Visit Diagnoses Not on filedocumented in this encounter Care Teams Coding File Clerk Relationship Specialty Start Date End Date Aneudy Jaeger MD PCP - General 08/26/14 08/25/24 documented as of this encounter
--- OUTSIDE RECORDS SUMMARY | 2024-10-27 10:48 | XMS_ITS | Encounter Summary ---
Author Organization [facility] Address [address] [place] [address]. [place] [address] [place] [address] Care Team Providers Care Video Recorder Mechanic Name Role Phone Aneudy Jaeger MD Primary Care Provider [phone] Encounter Details Date Type Department Care Team (Late st Contact Info) Description 11/24/1993 Abstract [facility] CONVERSION [address] [place], [place] [id number] , Generic ConversionMD Social History Tobacco Use [...] Info) Description 03/02/2025 11:00 AM CDT Appointment [facility] [place] [address] Nickie Negron MD 331 [facility] 100 [place] [address] 04/07/2025 12:30 PM CDT Office Visit [place] THREE [facility], [address] [address] Nicolas Brown MD Three [facility]. [address] [address] documented as of this encounter Visit Diagnoses Not on filedocumented in this encounter Care Teams Video Recorder Mechanic Relationship Specialty Start Date End Date Aneudy Jaeger MD PCP - General 08/26/14 08/25/24 documented as of this encounter
--- OUTSIDE RECORDS SUMMARY | 2024-10-27 10:48 | XMS_ITS | Encounter Summary ---
Author Organization [facility] Address [address] [place] [address]. [place] [address] [place] [address] Care Team Providers Care Platform Power Technician Name Role Phone Aneudy Jaeger MD Primary Care Provider [phone] Encounter Details Date Type Department Care Team (Late st Contact Info) Description 11/10/2003 Abstract [facility] [address] [place] [address] , Generic Conversion, Social History Tobacco Use [...] Info) Description 03/02/2025 11:00 AM CDT Appointment [facility] [place] [address] Nickie Negron MD 331 [facility] 100 [place] [address] 04/07/2025 12:30 PM CDT Office Visit [place] THREE [facility], [address] [address] Nicolas Brown MD Three [facility]. [address] [address] documented as of this encounter Visit Diagnoses Not on filedocumented in this encounter Care Teams Platform Power Technician Relationship Specialty Start Date End Date Aneudy Jaeger MD PCP - General 08/26/14 08/25/24 documented as of this encounter
--- OUTSIDE RECORDS SUMMARY | 2024-10-27 10:49 | XMS_ITS | Encounter Summary ---
Author Organization [facility] Address [address] [place] [address]. [place] [address] [place] [address] Care Team Providers Care Senior Telecommunications Technician Name Role Phone Aneudy Jaeger MD Primary Care Provider [phone] Encounter Details Date Type Department Care Team (Late st Contact Info) Description 11/24/1993 Abstract [facility] CONVERSION [address] [place], [place] [id number] , Generic ConversionMD Social History Tobacco Use [...] Info) Description 03/02/2025 11:00 AM CDT Appointment [facility] [place] [address] Nickie Negron MD 331 [facility] 100 [place] [address] 04/07/2025 12:30 PM CDT Office Visit [place] THREE [facility], [address] [address] Nicolas Brown MD Three [facility]. [address] [phone] documented as of this encounter Visit Diagnoses Not on filedocumented in this encounter Care Teams Senior Telecommunications Technician Relationship Specialty Start Date End Date Aneudy Jaeger MD PCP - General 08/26/14 08/25/24 documented as of this encounter
--- OUTSIDE RECORDS SUMMARY | 2024-10-27 10:51 | XMS_ITS | Encounter Summary ---
Author Organization [facility] Address [address] [place] [address] Care Team Providers Care Retail Cashier Associate Name Role Phone Unavailable Primary Care Provider Unavailabl e Encounter Details Date Type Department Care Team (Late st Contact Info) Description 10/31/[address] [facility] Community Testing [facility] [address] [place] [address] Alex Bronson MD [address] [place] [address] [place] [address] Social History Tobacco Use Types Packs/Day Years Used Date Smoking Tobacco: Never Assessed Sex and Gender Information Value Date Recorded Sex Assigned at Not on file Legal Sex Male 7:30 PM CDT Gender Identity Not on file Sexual Orientation Not on file documented as of this encounter Plan of Treatment Upcoming Encounters Date Type Department Care Team (Late st Contact Info) Description 11/06/2024 11:00 AM MONORAIL CRANE OPERATOR Office Visit [facility] [address] [phone] Vince Lovell, [address] [place] [address] documented as of this encounter Procedures Procedure Name Priority Date/Time Associated Diagnosis Comments SARS-COV-2 PCR [facility] ONLY Routine 10/31/2021 2:24 PM MONORAIL CRANE OPERATOR documented in this encounter Visit Diagnoses Not on filedocumented in this encounter
--- OUTSIDE RECORDS SUMMARY | 2024-10-27 10:51 | XMS_ITS | Clinical Summary ---
Author Organization [facility] Address [address], [facility] [address] [place] [address] Phone Care Team Providers Care Icu Registered Nurse Name Role Phone Nickie Negron MD Primary Care Provider [phone] Vince Lovell DO Unavailable [phone] Social History Tobacco Use Types Packs/Day Years Used Date Smoking Tobacco: Never Assessed Sex and Gender Information Value Date Recorded Sex Assigned at Not on file Legal Sex Male 7:30 PM CDT Gender Identity Not on file Sexual Orientation Not on file Plan of Treatment Upcoming Encounters Date Type Department Care Team (Late st Contact Info) Description 11/06/2024 11:00 AM 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 Office Visit [facility] [address] [phone] Vince Lovell, DO [address] [place] [phone] Health Maintenance Due Date Last Done Comments Hepatitis C Virus (HCV) Screening 1950 Cologuard 1998 Immunochemical Fecal Occult Blood 1998 Colonoscopy 10/04/2032 10/04/2022, 10/29, 08/26/2014 Colorectal Cancer Screening 10/04/2032 10/04/2022, 10/29, 08/26/2014 Pneumococcal Immunization (50+ years) Completed 05/22/2016, 05/21/2016, 08/10/2014 Zoster Immunization Completed 08/22/2018, 06/22/2018, 09/06/2014 Respiratory Syncytial Virus (RSV) Immunization (Adult) Completed 08/23/2023, 07/28/2023 DTaP/Tdap/Td Immunization Discontinued 2023, 02/03/2023, 02/03/2023, Additional history exists TdaP Immunization Completed 05/29/2024, , 11/15/2021 Influenza Immunization Completed , 06/28/2024, 07/22/2023, Additional history exists SARS-COV-2 Immunization Completed 07/20/20 24, 06/28/2024, 07/22/2023, Additional history exists Hepatitis B Immunization Aged Out No longer eligible based on patient's age to complete this topic Meningococcal Immunization (ACWY) Aged Out No longer eligible based on patient's age to complete this topic Rotavirus Immunization Aged Out No lo nger eligible based on patient's age to complete this topic Insurance MEDICARE C [employer] Care Teams Icu Registered Nurse Relationship Specialty Start Date End Date Nickie Negron MD [address] [place] [address] PCP - General Internal Medicine 10/16/24 Vince Lovell DO [address] [place] [phone] Consulting Physician Oncology 10/16/24
--- OUTSIDE RECORDS SUMMARY | 2024-10-27 10:51 | XMS_ITS | Encounter Summary ---
Author Organization [facility] Address [address] [place] [address] Care Team Providers Care Network Director Name Role Phone Unavailable Primary Care Provider Unavailabl e Encounter Details Date Type Department Care Team (Late st Contact Info) Description 10/31/2021 12:00 PM COFFEE ATTENDANT Rapid Evaluation [facility] Community Testing [facility] [address] [place] [address] Social History Tobacco Use Types Packs/Day Years [...] st Contact Info) Description 11/06/2024 11:00 AM COFFEE ATTENDANT Office Visit [facility] [address] [place] [address] Vince Lovell, [address] [place] [address] documented as of this encounter Visit Diagnoses Not on filedocumented in this encounter
--- OUTSIDE RECORDS SUMMARY | 2024-10-27 10:52 | XMS_ITS | Encounter Summary ---
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 Yes Location provided for therapy services is: Patient requested/Patient preferred Please select the performing region: External Order [171] [facility] loc[id number] # of visits: 24 Encounter Details Date Type Department Care Team (Late st Contact Info) Description 07/06/2024 Telephone [facility] Neurology [address] [place] [address] [place] [address] Gera Perrin MD [address] [facility] [address] [place] [address] Social History Tobacco Use Types Packs/Day Years Used Date Smoking Tobacco: Former Cigarettes Q uit: 2011 Smokeless Tobacco: Never Alcohol Use Standard Drinks/Week Comments Not Currently 0 (1 standard drink = 0.6 oz pur e alcohol) AUDIT-C Answer Date Recorded Q1: How often do you have a drink containing alc ohol? Never 08/23/2023 Average Number of Drinks Not on file 023 Frequency of Binge Drinking Not on file 07/29 Personal Safety Answer Date Recorded Have you ever been in or are you currently in a harmful physical or emotional relationship or is someone making you feel afraid or unsafe? Denies 05/28/2024 Sex and Gender Information Value Date Recorded Sex Assigned at Not on file Legal Sex Male 5:49 AM RN TRAVELING Gender Identity Not on file Sexual Orientation Not on file documented as of this encounter Miscellaneous Notes * Addendum Note - Sherif Acosta - 07/06/2024 3:39 PM CDTAddended by: SHERIF ACOSTA on: 07/06/2024 03:39 PM Modules accepted: Orders * Telephone Encounter - Sherif Acosta - 07/06/2024 3:36 PM CDT Received return call from Adrián chung, who stated they would transport patient to PT. Stated preferredlocation was [facility] in [place]. * Telephone Encounter - Sherif Acosta - 07/06/2024 2:46 PM CDT Lm on vm of Adrián chung, to notify of lack of home health access and enquire if able to transport for PT * Telephone Encounter - Sherif Acosta - 07/06/2024 2:22 PM CDT I have exhausted all the home health resources. The home health services that accept the patient's insurance are either at capacity or do not service the patient's area. 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
--- OUTSIDE RECORDS SUMMARY | 2024-10-27 10:52 | XMS_ITS | Encounter Summary ---
Author Organization [facility] Healthcare Address [address] [place] [address] Care Team Providers Care Postal Delivery Officer Name Role Phone Nickie Negron MD Primary Care Provider [phone] Reason for Visit * Reason Onset Date Comments referral to Home Health denied 06/23/2024 Encounter Details Date Type Department Care Team (Late st Contact Info) Description 06/23/2024 Telephone [facility] Medical Group Neurology [facility] [address] [address] Gera Perrin MD [address] [place] [address] referral to Home Health denied Social History Tobacco Use Types Packs/Day Years Used Date Smoking Tobacco: Former Cigarettes Q uit: 2012 Smokeless Tobacco: Never Alcohol Use Standard Drinks/Week [...] on file 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 Contacted Madyson schmidt [facility]. 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
--- OUTSIDE RECORDS SUMMARY | 2024-10-27 10:52 | XMS_ITS | Clinical Summary ---
Author Organization [facility] at [facility] Address [address] [place] [address] Care Team Providers Care Pyrometer Operator Name Role Phone Nickie Negron MD Primary Care Provider [phone] Allergies Active Allergy Reactions Criticality Noted Date Comments Gluten Other (See comments) Low wheat Lactose Stomach upset Low 05/05/2020 Medications buPROPion XL (WELLBUTRIN XL) 150 mg 24 hr tablet Take 1 tablet (150 mg total) by mouth daily Active cholestyramine (QUESTRAN) 4 gram powder Take 1 packet (4 g total) by mouth nightly as needed Active cilostazol (PLETAL) 50 mg tablet Take 1 tablet (50 mg total) by mouth 2 (two) times a day Active cyanocobalamin, vitamin B-12, 5,000 mcg tablet, sublingual Place 5,000 mcg under the tongue daily Active fluticasone propionate (FLONASE) 50 mcg/actuation nasal spray Administer 1 spray into each nostril daily as needed Active pravastatin (PRAVACHOL) 10 mg tablet Take 1 tablet (10 mg total) by mouth nightly 9 Active albuterol HFA (PROVENTIL HFA,VENTOLIN HFA,PROAIR HFA) 90 mcg/actuation inhaler Inhale 2 puffs every 8 (eight) hours as needed Active acetaminophen (TYLENOL) 500 mg tablet Take 1 tablet (500 mg total) by mouth every 8 (eight) hours as needed Active folic acid (FOLVITE) 1 mg tablet Take 1 tablet (1 mg total) by mouth daily 0 Active vit C,N-Lw-lhryk-lut ein-zeaxan (PreserVision AREDS-2) 250-90-40-1 mg capsule Take 1 capsule by mouth every 12 hours Active carvediloL (COREG) 3.125 mg tablet Take 1 tablet (3.125 mg total) by mouth 2 (two) times a day with meals 1 Active Asacol HD 800 mg EC tablet Take 1 tablet (800 mg total) by mouth 2 (two) times a day 1 Active aspirin 81 mg enteric coated tablet Take 1 tablet (81 mg total) by mouth daily Active clopidogreL (PLAVIX) 75 mg tablet Take 1 tablet (75 mg total) by mouth daily Active polysaccharide iron complex (NU-IRON) 150 mg iron capsuleIndicatio ns:Iron Deficiency Anemia Take 1 capsule (150 mg total) by mouth every other day Active sodium bicarbonate 650 mg tablet Take 1 tablet (650 mg total) by mouth 3 (three) times a day 1000 tablet 3 3 Active diclofenac sodium 3 % gel Apply 1 Application topically 4 (four) times a day as needed (pain) Active levothyroxine (SYNTHROID) 175 mcg tablet Take 1 tablet (175 mcg total) by mouth every morning 4 Active lidocaine HCL 4 % cream 2 (two) times a day as needed (pain) 3 Active calcium carbonate (OS-RADHA) 1,500 mg (600 mg elemental) tablet Take 1 tablet every day by oral route in the morning. [address] (PROTONIX) 20 mg EC tablet Take 1 tablet (20 mg total) by mouth daily Active denosumab (PROLIA) 60 mg/mL syringe Inject 1 mL (60 mg total) under the skin every 6 (six) months Active isosorbide mononitrate ER (IMDUR) 30 mg 24 hr tablet Take 0.5 tablets (15 mg total) by mouth daily 4 Active tiZANidine (ZANAFLEX) 4 mg tablet Take 1 tablet (4 mg total) by mouth every 6 (six) hours as needed Active triamcinolone (KENALOG) 0.1 % cream APPLY TOPICALLY TO THE AFFECTED AREA OF FEET TWICE DAILY Active vitamins A,C,Y-jtvq-romly r (PreserVision AREDS) 4,296 mcg-226 mg-90 mg capsule daily Active Active Problems Problem Noted Date Diagnosed Date Bilateral shoulder pain 04/17/2024 Arthritis of glenohumeral joint 01/13/2024 Overweight with body mass index (BMI) 25.0-29.9 01/08/2024 Mild memory disturbance 07/29/2023 Iron deficiency 07/02/2022 02/26/2023 Anemia 06/27/2022 02/26/2023 Melena 06/12/2022 Bilateral carotid artery stenosis 08/23/2021 Assessment & Plan (08/24/2021 4:00 PM CDT): Impression: Stable carotid artery disease. He has a chronically occluded left common carotid artery with retrograde filling of his left internal from his left external carotid artery. He has stable right internal carotid stenosis which is asymptomatic. Plan: No surgical intervention currently needed. Recommend ongoing risk factor modifications and follow-up in 6 months for re-evaluation with repeat carotid duplex surveillance. Encounter for long-term (current) use of insulin 07/12/2021 Occlusion of left carotid artery 02/22/2021 Assessment & Plan (02/21/2022 10:52 AM CDT): Impression: Patient has chronic occlusion to the left carotid artery. Plan: Continue risk factor modifications. Patient to follow-up in 1 year for re-evaluation with carotid duplex. Assessment & Plan (02/22/2021 10:14 AM CDT): Patient is asymptomatic left distal common carotid artery occlusion. Retrograde filling of the anterior carotid artery via the external carotid artery noted. No surgical intervention warranted. Continue risk factor modification 6 month duplex. Carotid artery stenosis, unilateral 02/05/2021 Assessment & Plan (03/04/2023 10:14 PM CDT): Impression: Stable right internal carotid artery stenosis with a chronically occluded left internal carotid artery. Patient remains asymptomatic. Plan: No surgical intervention currently needed. Recommend ongoing risk factor modifications and follow-up in 1 year for re-evaluation with repeat carotid duplex surveillance. Assessment & Plan (02/21/2022 10:54 AM CDT): Impression: Patient has mild right internal carotid artery stenosis as seen on carotid duplex, he remains asymptomatic. Plan: Continue ongoing risk factor modifications. Patient to follow-up in 1 year for re-evaluation with carotid duplex. Assessment & Plan (02/05/2021 12:46 PM CDT): Conflicting duplex reports. Most recent duplex shows occlusion left distal common carotid artery. Will obtain CT angiogram for more thorough evaluation determine whether surgical intervention is required. Benign prostatic hyperplasia with urinary obstru ction 01/04/2021 Acute dehydration 05/05/2020 Acute kidney injury 05/05/2020 Body mass index (BMI) 19.9 or less, adult 2019 Chronic obstructive pulmonary disease with bronc hospasm 05/05/2020 Acute renal failure superimposed on chronic kidn ey disease 05/05/2020 Coffee ground emesis 05/05/2020 Diarrhea due to cryptosporidium ([facility]) 2019 Fall involving ice skates 05/05/2020 Family history of stroke 05/05/2020 Gastroenteritis 05/05/2020 Gastroesophageal reflux disease with esophagitis 05/05/2020 Gastrointestinal hemorrhage 05/05/2020 History of Crohn's disease 05/05/2020 Leukocytosis 05/05/2020 Hypotension due to blood loss 05/05/2020 Repeated falls 05/05/2020 Systemic inflammatory response syndrome (SIRS) 0 05/05/2020 Traumatic hematoma of hand 05/05/2020 Inflammation of colonic mucosa 05/05/2020 Age-related macular degeneration 04/18/2020 Mucoid diarrhea 04/18/2020 Macrocytosis 01/19/2020 Kidney stone 11/03/2019 Vitamin B12 deficiency (non anemic) 05/19/2019 Body mass index (BMI) of 20 to 24 02/17/2019 Hyperuricemia 11/19/2018 Asthma 08/16/2017 History of colonic polyps 08/16/2017 Mixed anxiety and depressive disorder 08/16/2017 Vitamin D deficiency 08/16/2017 Hypomagnesemia 12/28/2016 Hypophosphatemia 12/28/2016 Dyslipidemia 12/19/2016 02/26/2023 Claudication of left lower extremity 06/21/2016 Assessment & Plan (02/22/2021 10:13 AM CDT): Patient continues to do well. No residual and or recurrence symptoms. Continue 6 month duplex surveillance. Continue anti-platelet therapy. Assessment & Plan (02/05/2021 12:45 PM CDT): Patient continues to do well with no recurrence claudication symptoms. Continue anti-platelet therapy follow-up 6 months for duplex surveillance. Assessment & Plan (05/17/2020 5:40 PM CDT): Patient continues to do well with no recurrence claudication symptoms left lower extremity. Continue exercise and ongoing risk factor modification follow-up 1 year with arterial Doppler study History of acute renal failure 03/19/2016 Hypokalemia due to loss of potassium 03/19/2016 Coronary artery disease 02/27/2016 Crohn's disease without complication ([facility]) 0 02/27/2016 Ex-smoker 02/27/2016 Hyperlipidemia 02/27/2016 Assessment & Plan (02/21/2022 10:54 AM CDT): Impression: Chronic stable hyperlipidemia, controlled with statin therapy. Plan: Medications reviewed, no changes made. Continue statin therapy as per primary care provider. Assessment & Plan (02/22/2021 10:13 AM CDT): Cholesterol is controlled. Continue medical therapy. Assessment & Plan (05/17/2020 5:40 PM CDT): Patient states cholesterol levels are controlled he is tolerating statin therapy continue per PCP Moderate essential hypertension 02/27/2016 Assessment & Plan (03/04/2023 10:14 PM CDT): Impression: Stable chronic hypertension. Plan: Medications reviewed and recommend continuing daily antihypertensive regimen as directed by patient's primary care physician. Assessment & Plan (02/21/2022 10:54 AM CDT): Impression: Chronic stable hypertension, controlled medications. Blood pressure is is stable this office visit. Plan: Medications reviewed, no changes made. Continue blood pressure management as per primary care provider. Assessment & Plan (08/24/2021 3:53 PM CDT): Impression: Stable chronic hypertension. Plan: Medications reviewed and recommend continuing daily antihypertensive regimen as directed by patient's primary care physician. Assessment & Plan (02/22/2021 10:13 AM CDT): Hypertension controlled. Continue medical therapy Assessment & Plan (02/05/2021 12:46 PM CDT): Hypertension controlled. Continue medical management. Assessment & Plan (05/17/2020 5:40 PM CDT): Per patient blood pressure remains controlled continue antihypertensive regimen per PCP Osteoarthritis 02/27/2016 Osteoporosis 02/27/2016 Peripheral vascular disease ([facility]) 02/27/2016 Assessment & Plan (03/04/2023 10:12 PM CDT): Impression: Stable nondisabling claudication both lower extremities. No rest pain or nonhealing ulcers. Plan: No surgical intervention currently. Recommend ongoing risk factor modifications and follow-up In 1 year for re-evaluation with repeat lower extremity arterial Doppler surveillance. Assessment & Plan (02/21/2022 10:52 AM CDT): Impression: Patient has a history of atherectomy balloon angioplasty to left popliteal artery in 2014. Patient denies any symptoms of claudication, ischemic rest pain or ulcerations. Arterial Doppler reveals triphasic waveforms to bilateral lower extremities with falsely elevated ABIs. Plan: Continue ongoing risk factor modifications. Patient to follow-up in 1 year for re-evaluation with repeat arterial Doppler bilaterally. Assessment & Plan (08/24/2021 4:00 PM CDT): Impression: Patient with history of lower extremity arterial occlusive disease. He has had no recent surveillance diagnostic studies performed. He remains asymptomatic with no ulcerations. Plan: Patient follow-up in 6 months for re-evaluation with repeat lower extremity arterial Doppler surveillance. Primary hypothyroidism 02/27/2016 Dyspnea on exertion 01/28/2016 02/26/2023 Kidney disease 01/28/2016 02/26/2023 Mass of nose 05/16/2015 Chronic kidney disease, stage III (moderate) Abdominal pain Encounters Date Type Department Care Team Description 08/12/2024 2:00 PM CDT Office Visit [facility] [address] [place] [address] [place] [phone] Gayle Lawson PA Primary osteoarthritis of both knees (Primary Dx) 07/28/2024 7:18 AM CDT - 07/28/2024 10:42 AM CDT Emergency [facility] Emergency Department [address] [place] [id number] Calixto Lehman MD Chest pain, unspecified type (Primary Dx) Discharge Disposition: Discharge to home or self care from Last 3 Months Immunizations Name Administration Dates Next Due Influenza Virus Vaccine Trivalent Mdv 08/14/2018 Influenza, Quad, Adjuvantate d, Intramuscular 07/21/2020 Influenza, Quadrivalent, Spl it, Intramuscular 07/28/2021,07/21/2020,06/26/2019,08/11 Influenza, Quadrivalent, Spl it, Preservative Free, Intramuscular 07/26/2015 Influenza, Trivalent, Adjuva nted, Intramuscular 06/26/2019,08/14/2018 Influenza, Trivalent, High D ose, Split, Preservative Free, Intramuscular 08/16/2017 Influenza, Trivalent, Preser vative Free, Intramuscular 08/16/2016 Moderna SARS-CoV-2 Monovalen t Vaccination (12+ YRS) 08/21/2021,01/16/2021,12/15/2020 Pneumococcal Conjugate PCV 13 08/10/2014 Pneumococcal Polysaccharide PPV23 05/22/2016 Td, Unspecified 02/03/2023, 2,08/10/2014,08/10 Tdap 05/29/2024 ZOSTER LIVE 09/06/2014,09/06/2014 ZOSTER Recombinant 08/23/2018,06/23/2018 Surgical History Surgery Date Site/Laterality Comments NECK SURGERY 10/22/2011 Neck fracture ATHERECTOMY 05/04/2015 Left popliteal COLONOSCOPY W/ BIOPSIES 04/13/2016 CARDIAC CATHETERIZATION stent UPPER GASTROINTESTINAL ENDOSCOPY Medical History Medical History Date Comments Chronic kidney disease, stage III (moderate) (HC C) Hypokalemia Hypomagnesemia Hypophosphatemia Crohn's colitis (CMS/HCC) (HCC) Celiac sprue DJD (degenerative joint disease) GERD (gastroesophageal reflux disease) Hypertension Hyperlipidemia Hypothyroidism Asthma Coronary artery disease Family History Medical History Relation Name Comments Cerebral aneurysm Father Family his tory of cerebral aneurysm - (Added by TW Conv) Hypertension Other Relation Name Status Comments Father Other Social History Tobacco Use Types Packs/Day Years Used Date Smoking Tobacco: Former Cigarettes Q uit: 2011 Smokeless Tobacco: Never Tobacco Cessation:Counseling Given: Not [...] making you feel afraid or unsafe? 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 Gender Identity Not on file Sexual Orientation Not on file Obstetrics History Last Filed Vital Signs Vital Sign Reading Time Taken Comments Blood Pressure 157/86 07/28/2024 10:30 AM CDT Pulse 71 07/28/2024 10:30 AM CDT Temperature 36.4 ??C (97.5 ??F) 07/28/2024 7:06 AM CD T Respiratory Rate 17 07/28/2024 10:30 AM CDT Oxygen Saturation 100% 07/28/2024 10:30 AM CDT Inhaled Oxygen Concentration - - Weight 64.9 kg (143 lb 1.3 oz) 07/28/2024 7:09 A M CDT Height 157.5 cm (5' 2 ) 07/22/2024 9:48 AM CDT Body Mass Index 26.17 07/22/2024 9:48 AM CDT Plan of Treatment Health Maintenance Due Date Last Done Comments Colon Cancer Screening-Colonoscopy 1950 Depression Screening 1948 Hepatitis B Screening 1966 Well Visit 65+ 2013 Fall Risk Assessment 06/18/2023 06/18/2022 Covid-19 Vaccine (2023-2 5 season) 2024 08/21/2021, 01/16/2021, 12/15/2020 Influenza Vaccine (#1) 2024 , 07/28/2021, 07/21/2020, Additional history exists DTaP/Tdap/Td Vaccine (2 - Td or Tdap) 05/29/2034 05/29/2024, 02/03/2023, 11/15/2021, Additional history exists Hepatitis C Screening Completed 07/21/2015 Pneumococcal vaccine 65+ Completed 05/22/2016, 07/28 Zoster Vaccine Completed 08/23/2018, 05/29, 09/06/2014, Additional history exists Abdominal Aortic Aneurysm (A AA) Screen Completed 11/03/2019, 04/10/2016, 02/16/2016 Procedures Procedure Name Priority Date/Time Associated Diagnosis Comments OH ARTHROCENTESIS ASPIR&/INJ MAJOR JT/BURSA W/O US Routine 08/12/2024 2:00 PM CDT Primary osteoarthritis of both knees OH ARTHROCENTESIS ASPIR&/INJ MAJOR JT/BURSA W/O US Routine 08/12/2024 2:00 PM CDT Primary osteoarthritis of both knees TROPONIN T HIGH-SENSITIVITY 2-HOUR Timed 07/28/2024 9:25 AM CDT XR CHEST 1 VIEW ED 07/28/2024 7:47 AM CDT EGFR STAT 07/28/2024 7:15 AM CDT DIFFERENTIAL AUTO STAT 07/28/2024 7:1 5 AM CDT TROPONIN T HIGH-SENSITIVITY SERIES (BASELINE, 2HR, 4HR, 6HR) STAT 07/28/2024 7:15 AM CDT COMPREHENSIVE METABOLIC PANEL STAT 07/28/2024 7:15 AM CDT CBC WITH AUTO DIFFERENTIAL STAT 07/28/2024 7:15 AM CDT ECG 12-LEAD STAT 07/28/2024 7:[address] ABDOMEN PELVIS WO CONTRAST 11/03/2019 10:56 AM 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 08/13/2024 ??9:19 AM Large Joint (Hip, Knee, Shoulder) Injection: L knee Performed by: Gayle Lawson PA Authorized by: Gayle Lawson PA ?? Large Joint Injection/Aspiration: ??Consent Given by: ??Patient ??Site marked: the procedure site was marked ?Timeout: prior to procedure the correct patient, procedure, and site was verified ?Verbal consent obtained: Yes ?? Supporting Documentation: ??Indications: ??Pain Procedure Details: ??Location: ??Knee ??Site: ??L knee ??Prep: patient was prepped using a clean technique ?Needle Size: ??22 G ??Approach: ??Anterolateral ??Medications: ??1 mL lidocaine 20 mg/mL (2 %); 40 mg triamcinolone 40 mg/mL ??Patient tolerance: ??Patient tolerated the procedure well with no immediate complications Gayle THACKER IN CLINIC/BEDSIDE ORDERAB LES Final Result * OH ARTHROCENTESIS ASPIR&/INJ MAJOR JT/BURSA W/O US (08/12/2024 2:00 PM CDT) Gayle Curtis PA - 08/12/2024 2:00 PM CDT Gayle Lawson PA ? 08/13/2024 ??9:19 AM Large Joint (Hip, Knee, Shoulder) Injection: R knee Performed by: Gayle Lawson PA Authorized by: Gayle Lawson PA ?? Large Joint Injection/Aspiration: ??Consent Given by: ??Patient ??Site marked: the procedure site was marked ?Timeout: prior to procedure the correct patient, procedure, and site was verified ?Verbal consent obtained: Yes ?? Supporting Documentation: ??Indications: ??Pain Procedure Details: ??Location: ??Knee ??Site: ??R knee ??Prep: patient was prepped using a clean technique ?Needle Size: ??22 G ??Approach: ??Anterolateral ??Medications: ??1 mL lidocaine 20 mg/mL (2 %); 40 mg triamcinolone 40 mg/mL ??Patient tolerance: ??Patient tolerated the procedure well with no immediate complications Gayle THACKER IN CLINIC/BEDSIDE ORDERAB LES Final Result * (ABNORMAL) Troponin T high-sensitivity 2-hour (07/28/2024 9:25 AM CDT) Trop T hs 28(H) <=22 ng/L Comment: Interpretive Data For further hscTnT resources including the diagnostic algorithm and an aid in interpretation, copy and paste this link: https://nrl.testcatalog.org/show/hsTrop Current Interpretive Data last revised 2020. Testing performed by: [address] [address] Trop T hs delta -1 ng/L GENARO TOVAR Comment:Testing performed by : [address] [address] Trop T hs interp Insignificant GENARO TOVAR Comment:Testing performed by : [address] [address] Blood 07/28/2024 9:25 AM CDT 07/28/2024 9:33 AM CDT Rehab Dominik TY LAB BLOOD ORDERABLES Final Resu lt GENARO [facility] [address] [facility] [place] [address] * XR Chest 1 Vw Portable (if patient condition/safety warrant portable) (07/28/2024 7:47 AM CDT) Anatomical Region Laterality Modality Body, Chest N/A Computed Radiogr aphy 07/28/2024 7:52 AM CDT Narrative 07/28/2024 7:54 AM CDT EXAM DESCRIPTION: XR CHEST 1 VIEW REASON FOR STUDY: chest pain ?? Intermittent chest pain over the past few days ?? TECHNIQUE: AP ??radiographic view(s) of the chest. COMPARISON: Comparison 06/12/2022. FINDINGS: LUNGS: ??No focal opacity, pleural effusion, or pneumothorax. ?? HEART/MEDIASTINUM: ??Cardiac silhouette normal in size. Mediastinal and hilar contours appear normal. LINES/TUBES: ??Monitoring lines and leads overlie the chest. BONES: ??No acute osseous abnormality. IMPRESSION: No acute cardiopulmonary abnormality. THIS IS AN ELECTRONICALLY VERIFIED FINAL REPORT 07/28/2024 7:54 AM - Electronically signed by ??Kishore Olguin M.D. LC: SAMMY D: ??07/28/2024 7:54 AM T: ??07/28/2024 7:54 AM Report ID: [id number] Reading Location: ??[id number] Procedure Note Alesha Olguin MD - 07/28/2024 EXAM DESCRIPTION: XR CHEST 1 VIEW REASON FOR STUDY: chest pain Intermittent chest pain over the past few days TECHNIQUE: AP radiographic view(s) of the chest. COMPARISON: Comparison 06/12/2022. FINDINGS: LUNGS: No focal opacity, pleural effusion, or pneumothorax. HEART/MEDIASTINUM: Cardiac silhouette normal in size. Mediastinal andhilar contours appear normal. LINES/TUBES: Monitoring lines and leads overlie the chest. BONES: No acute osseous abnormality. IMPRESSION: No acute cardiopulmonary abnormality. THIS IS AN ELECTRONICALLY VERIFIED FINAL REPORT 07/28/2024 7:54 AM - Electronically signed by Kishore Olguin M.D. LC: SAMMY Report ID: [id number] Reading Location: [id number] us Rehab Dominik TY IMG XR PROCEDURES Final Result * (ABNORMAL) Troponin T high-sensitivity series (baseline, 2hr, 4hr, 6hr) (07/28/2024 7:15 AM CDT) Trop T hs 29(H) <=22 ng/L Comment: Interpretive Data For further hscTnT resources including the diagnostic algorithm and an aid in interpretation, copy and paste this link: https://nrl.testcatalog.org/show/hsTrop Current Interpretive Data last revised 2020. Testing performed by: [facility], [address] [place] [address]., [id number] Blood 07/28/2024 7:15 AM CDT 07/28/2024 7:34 AM CDT Rehab Dominik TY LAB BLOOD ORDERABLES [facility] [address] [facility] [place] [address] * (ABNORMAL) eGFR (07/28/2024 7:15 AM CDT) eGFR 48(L) >=60 mL/min/1. 73 m2 Comment: Interpretive Data Reference Interval Normal ?>/= 90 mL/min/1.73m2 Mildly decreased* ? 60 - 89 mL/min/1.73m2 Mildly to moderately decreased ?45 - 59 mL/min/1.73m2 Moderately to severely decreased ??30 - 44 mL/min/1.73m2 Severely decreased ?15 - 29 mL/min/1.73m2 Kidney Failure ?< 15 ??mL/min/1.73m2 *Relative to young adult level Estimated glomerular filtration rate is determined by the 2020 CKD-EPI equation recommended by the National Kid[employer] (A Unifying Approach to GFR Estimation: Recommendations of the NKF-ASK Task Force on Reassessing the Inclusion of Race in Diagnosing Kidney Disease, JASN 2020). The CKD-EPI equation should not be used for patients with unstable renal function and has not been validated in children and those over 70. Current interpretive data was last reviewed 2021. Testing performed by: [address] [id number] Blood 07/28/2024 7:15 AM CDT 07/28/2024 7:34 AM CDT us Rehab Dominik TY LAB BLOOD ORDERABLES Final Resu lt GENARO [address] [facility] Department [place] [address] * (ABNORMAL) Differential, auto (07/28/2024 7:15 AM CDT) Neutrophil abs 6.9(H) 1.5 - 6.5 K/cumm Comment:Testing performed by : [address] [address] Imm gran abs 0.4(H) 0.0 - 0.1 K/cumm GENARO TOVAR Comment:Testing performed by : [address] [address] Lymphocyte abs 2.0 0.8 - 3.3 K/cumm GENARO TOVAR Comment:Testing performed by : [address] [address] Monocyte abs 1.1(H) 0.2 - 0.8 K/cumm GENARO TOVAR Comment:Testing performed by : [address] [address] Eosinophil abs 0.2 0.0 - 0.5 K/cumm GENARO TOVAR Comment:Testing performed by : [address] [address] Basophil abs 0.1 0.0 - 0.1 K/cumm GENARO Comment:Testing performed by : [address] [address] Neutrophil pct 65.5 % [facility] Comment: Interpretive Data Percent cell count reference ranges are not reported, since discordance with absolute values may lead to misinterpretation of CBC data. Current Interpretive Data was last revised on 2018. Testing performed by: [address] [address] Imm gran pct 3.8 % [facility] Comment: Interpretive Data Percent cell count reference ranges are not reported, since discordance with absolute values may lead to misinterpretation of CBC data. Current Interpretive Data was last revised on 2018. Testing performed by: [address] [address] Lymphocyte pct 18.7 % [facility] Comment: Interpretive Data Percent cell count reference ranges are not reported, since discordance with absolute values may lead to misinterpretation of CBC data. Current Interpretive Data was last revised on 2018. Testing performed by: [address] [address] Monocyte pct 9.9 % [facility] Comment: Interpretive Data Percent cell count reference ranges are not reported, since discordance with absolute values may lead to misinterpretation of CBC data. Current Interpretive Data was last revised on 2018. Testing performed by: [address] [address] Eosinophil pct 1.4 % [facility] Comment: Interpretive Data Percent cell count reference ranges are not reported, since discordance with absolute values may lead to misinterpretation of CBC data. Current Interpretive Data was last revised on 2018. Testing performed by: [address] [address] Basophil pct 0.7 % [facility] Comment: Interpretive Data Percent cell count reference ranges are not reported, since discordance with absolute values may lead to misinterpretation of CBC data. Current Interpretive Data was last revised on 2018. Testing performed by: [address] [address] Blood 07/28/2024 7:15 AM CDT 07/28/2024 7:33 AM CDT us Rehab Dominik TY LAB BLOOD ORDERABLES Final Resu lt GENARO [address] [facility] [place] [address] * (ABNORMAL) CBC with auto differential (07/28/2024 7:15 AM CDT) WBC 10.6(H) 3.8 - 9.9 K/cumm Comment:Testing performed by : [address] [address] Hgb 12.8(L) 13.0 - 17.5 g/dL GENARO Comment:Testing performed by : [address] [address] Hct 38.9 38.9 - 50.3 % GENARO Comment:Testing performed by : [address] [address] Plt 237 150 - 400 K/cumm GENARO Comment:Testing performed by : [address] [address] MPV 11.4 9.1 - 12.3 fL GENARO Comment:Testing performed by : [address] [address] RBC 4.20(L) 4.30 - 5.80 M/cumm GENARO Comment:Testing performed by : [address] [address] MCV 92.6 81.3 - 96.4 fL GENARO Comment:Testing performed by : [address] [address] MCH 30.5 27.1 - 33.3 pg GENARO Comment:Testing performed by : [address] [address] MCHC 32.9 32.3 - 35.7 g/dL GENARO TOVAR Comment:Testing performed by : [address] [address] RDW CV 13.8 11.1 - 14.9 % GENARO TOVAR Comment:Testing performed by : [address] [address] RDW SD 46.3 35.7 - 48.1 fL GENARO TOVAR Comment:Testing performed by : [address] [address] NRBC abs 0.00 0.00 - 0.01 K/cumm GENARO TOVAR Comment:Testing performed by : [address] [address] Blood (Blood, Venous) 07/28/2024 7:15 AM CDT 07/28/2024 7:33 AM CDT us Rehab Dominik TY LAB BLOOD ORDERABLES Final Resu lt GENARO [facility] [place] [address] * (ABNORMAL) Comprehensive metabolic panel (07/28/2024 7:15 AM CDT) Sodium 137 135 - 145 mmol/L Comment:Testing performed by : [address] [address] Potassium, pl 4.3 3.3 - 4.9 mmol/L GENARO TOVAR Comment:Testing performed by : [address] [address] Chloride 103 97 - 110 mmol/L GENARO TOVAR Comment:Testing performed by : [address] [address] CO2 23 22 - 32 mmol/L GENARO TOVAR Comment:Testing performed by : [address] [address] Anion gap 11 2 - 15 mmol/L GENARO TOVAR Comment:Testing performed by : [address] [address] BUN 40(H) 6 - 25 mg/dL GENARO TOVAR Comment:Testing performed by : [address] [address] Creatinine 1.50(H) 0.80 - 1.30 mg/dL GENARO Comment:Testing performed by : [address] [address] Glucose 109 70 - 199 mg/dL GENARO Comment: Interpretive Data Fasting glucose >/= 126 mg/dl is diagnostic for diabetes. ?? Fasting is defined as no caloric intake for at least 8 hours. Fasting glucose between 100 mg/dl to 125 mg/dl is diagnostic of prediabetes. In a patient with classic symptoms of hyperglycemia or hyperglycemic crisis, a random glucose >/= 200 mg/dl is diagnostic for diabetes. In the absence of unequivocal hyperglycemia, results should be confirmed by repeat testing. The classification and Diagnosis of Diabetes Diabetes Care 2021; 46: S19-S40. Current interpretive data was last revised 2022. Testing performed by: [address] [address] Calcium 9.7 8.5 - 10.3 mg/dL GENARO Comment:Testing performed by : [address] [address] Bilirubin, total 0.5 0.1 - 1.2 mg/dL GENARO Comment:Testing performed by : [address] [address] Protein, pl 6.6 6.5 - 8.5 g/dL GENARO Comment:Testing performed by : [address] [address] Albumin 4.1 3.5 - 5.0 g/dL GENARO Comment:Testing performed by : [address] [address] Alk phos 80 40 - 130 Units/L GENARO Comment:Testing performed by : [address] [address] ALT 22 7 - 55 Units/L GENARO Comment:Testing performed by : [address] [address] AST 16 10 - 50 Units/L GENARO Comment:Testing performed by : [address], [place]., [address] Blood 07/28/2024 7:15 AM CDT 07/28/2024 7:34 AM CDT Rehab Dominik TY LAB BLOOD ORDERABLES Final Resu lt Performing Organization Address City/[facility]/ZIP Co de Phone Number GENARO [address] [facility] Department [place] [address] * ECG 12 lead (07/28/2024 7:12 AM CDT) Pathologist [facility] Ventricular Rate EKG/Min 81 BPM [facility] Atrial Rate 81 BPM [facility] [place]-Interval (MSEC) 142 ms [facility] QRS-Interval (MSEC) 80 ms [facility] QT-Interval (MSEC) 358 ms [facility] QTc 415 ms [facility] P [place] 45 degrees [facility] R [place] 32 degrees [facility] T [place] 29 degrees [facility] Diagnosis Sinus rhythm with marked sinus arrhythmia with occasional Premature ventricular complexes Otherwise normal ECG When compared with ECG of 12-JUN-2022 08:06, Premature ventricular complexes are now Present ST no longer depressed in Inferior leads Confirmed by MIGUELINA PIERCE M.D. ([id number]) on 07/28/2024 8:26:26 AM [facility] 07/28/2024 7:12 AM CDT 07/28/2024 8:26 AM CDT Rehab Dominik TY ECG ORDERABLES Final Result Performing Organization Address [facility] de Phone Number [facility] [employer] [facility] * CT Abdomen Pelvis WO Contrast (11/03/2019 10:56 AM COBOL MAINFRAME DEVELOPER) Anatomical Region Laterality Modality Body N/A Computed Tomogra phy 11/03/2019 3:02 PM COBOL MAINFRAME DEVELOPER Narrative 11/03/2019 3:09 PM COBOL MAINFRAME DEVELOPER Patient Name: RACHELE ANDRADE ?Ordering Dr: Anupama Kaplan PA-C ?? D.O.B: 1950 ? Exam Date: 11/03/19 ?? 1056 ?? Age: 68 ?Sex: Male ? MR#: [id number] ?? Loc: ? RADIOLOGY REPORT ?? Order #[id number] ?? CT Scan ? CT Abd/Pelvis WO IV Contrast ? Signed ?? EXAM DESCRIPTION: ??CT Abd/Pelvis WO IV Contrast ? REASON FOR STUDY: ??Shortness of breath. ??Fluid replacement. ??History of ?? Crohn's disease. ??Renal failure. ? TECHNIQUE: ??CT scan of the abdomen and pelvis performed without intravenous ?? and without oral contrast using helical scanning technique. Reconstructed ?? coronal and sagittal MPR images reviewed. All images stored on PACS. ? Automated exposure control was used as a dose optimization technique for this ?? examination. ? COMPARISON: ??CT abdomen and pelvis 04/10/2016. ? FINDINGS: ? The sensitivity for detection of visceral lesions is diminished without the ?? use of intravenous contrast. ? LOWER CHEST: Lung bases are clear. ? Small hiatal hernia. ? LIVER: 8 mm hypodensity of the right hepatic dome likely represents a cyst, ?? stable. ? GALLBLADDER: No radiopaque stones. ? BILE DUCTS: No intrahepatic or extrahepatic ductal dilatation. ? SPLEEN: Normal size. ??No focal lesions. ? PANCREAS: No acute or chronic inflammation. ? ADRENALS: Unremarkable. ? KIDNEYS/URINARY TRACT: Punctate 2 mm stone within the lower pole the right ?? kidney is new compared to the CT from 2016. ??There is no developing ?? hydronephrosis however. ??No ureteral calculi. ??Urinary bladder is grossly ?? unremarkable. ? GI: No mechanical bowel obstruction. ??Prior right hemicolectomy with ileocolic ?? anastomosis in the right upper quadrant. ? PERITONEUM: No ascites or pneumoperitoneum. ??No lymphadenopathy. ? RETROPERITONEUM: No mass or adenopathy. ? REPRODUCTIVE: Prostate is enlarged measuring 4.7 cm in diameter. ? VASCULATURE: Aorta is atherosclerotic but nonaneurysmal. ? MUSCULOSKELETAL: ORIF of the proximal left femur. ??Degenerative changes of the ?? axial skeleton. ??No aggressive osteolytic or blastic lesions are identified. ? OTHER: No other abnormality. ? IMPRESSION: ? 1. ??No acute abnormality is identified within the abdomen or pelvis. ? 2. ??Punctate 2 mm nonobstructing stone within the lower pole of the right ?? kidney. ? 3. ??Stable cyst within the hepatic dome. ? 4. ??Small hiatal hernia. ? 5. ??Prostatomegaly. ? 6. ??Prior right hemicolectomy. ? THIS IS AN ELECTRONICALLY VERIFIED FINAL REPORT ?? 11/03/2019 3:09 PM - Electronically signed by Miguelangel Yan.O. ?? Miguelangel GonzalezO. ? D: ??11/03/2019 3:09 PM ?? T: ? Report ID: [id number] ?? Reading Location: ??[id number] ? REPORT ELECTRONICALLY SIGNED IN OTHER VENDOR SYSTEM ?? Resulting Agency Comment E Procedure Note Miguelangel Valenzuela DO - 11/03/2019 Patient Name: FAYERACHELE GARZA Dr: Anupama Kaplan PA-C, D.O.B: 1950 Exam Date: 11/03/19 1056 Age: 68 Sex: Male MR#: [id number] Loc: RADIOLOGY REPORT Order #[id number] CT Scan CT Abd/Pelvis WO IV Contrast Signed EXAM DESCRIPTION: CT Abd/Pelvis WO IV Contrast REASON FOR STUDY: Shortness of breath. Fluid replacement. History of Crohn's disease. Renal failure. TECHNIQUE: CT scan of the abdomen and pelvis performed withoutintravenous and without oral contrast using helical scanning technique. Reconstructed coronal and sagittal MPR images reviewed. All images stored on PACS. Automated exposure control was used as a dose optimization technique forthis examination. COMPARISON: CT abdomen and pelvis 04/10/2016. FINDINGS: The sensitivity for detection of visceral lesions is diminished withoutthe use of intravenous contrast. LOWER CHEST: Lung bases are clear. Small hiatal hernia. LIVER: 8 mm hypodensity of the right hepatic dome likely represents acyst, stable. GALLBLADDER: No radiopaque stones. BILE DUCTS: No intrahepatic or extrahepatic ductal dilatation. SPLEEN: Normal size. No focal lesions. PANCREAS: No acute or chronic inflammation. ADRENALS: Unremarkable. KIDNEYS/URINARY TRACT: Punctate 2 mm stone within the lower pole theright kidney is new compared to the CT from 2016. There is no developing hydronephrosis however. No ureteral calculi. Urinary bladder is grossly unremarkable. GI: No mechanical bowel obstruction. Prior right hemicolectomy withileocolic anastomosis in the right upper quadrant. PERITONEUM: No ascites or pneumoperitoneum. No lymphadenopathy. RETROPERITONEUM: No mass or adenopathy. REPRODUCTIVE: Prostate is enlarged measuring 4.7 cm in diameter. VASCULATURE: Aorta is atherosclerotic but nonaneurysmal. MUSCULOSKELETAL: ORIF of the proximal left femur. Degenerative changesof the axial skeleton. No aggressive osteolytic or blastic lesions areidentified. OTHER: No other abnormality. IMPRESSION: 1. No acute abnormality is identified within the abdomen or pelvis. 2. Punctate 2 mm nonobstructing stone within the lower pole of the right kidney. 3. Stable cyst within the hepatic dome. 4. Small hiatal hernia. 5. Prostatomegaly. 6. Prior right hemicolectomy. THIS IS AN ELECTRONICALLY VERIFIED FINAL REPORT 11/03/2019 3:09 PM - Electronically signed by Miguelangel Valenzuela D.O. T: Report ID: [id number] Reading Location: [place] [id number] REPORT ELECTRONICALLY SIGNED IN OTHER VENDOR SYSTEM Anupama THACKER IMG CT PROCEDURES Final Resul t * Hepatitis panel, acute (07/21/2015 4:03 PM CDT) HepBsAg NONREACT NONREACTIVE 07/21/2015 5:03 PM [employer] [facility] HISTORICAL RESULTS Comment: [employer] using KEESHA (chemiluminescent immunoassay) technology. NONREACTIVE: IgM antibodies to Hepatitis B Surface antigen not detected. REACTIVE: IgM antibodies to Hepatitis B Surface antigen detected. Reactive results will be confirmed by neutralization testing. HBsAb (immune status) NONREACT NONREACTIVE 07/21/2015 4:52 PM [employer] [facility] [employer] HISTORICAL RESULTS Comment: [employer] using KEESHA (chemiluminescent immunoassay) technology. NONREACTIVE: IgM antibodies to Hepatitis B Surface antibody not detected. REACTIVE: IgM antibodies to Hepatitis B Surface antibody detected. Hep B core IgM NONREACT NONREACTIVE 5 5:31 PM [employer] [facility] [employer] HISTORICAL RESULTS Comment: [employer] using KEESHA (chemiluminescent immunoassay) technology. NONREACTIVE: IgM antibodies to Hepatitis B Core antigen not detected. EQUIVOCAL: IgM antibodies to Hepatitis B Core antigen may or may not be present. Obtain a ??new specimen and retest. REACTIVE: IgM antibodies to Hepatitis B Core antigen detected. Hep A IgM NONREACT NONREACTIVE Comment: [employer] using KEESHA (chemiluminescent immunoassay) technology. NONREACTIVE: IgM antibodies to Hepatitis A not detected. This does not exclude possibility of exposure to Hepatitis A or early acute infection. EQUIVOCAL:IgM antibodies to Hepatitis A may or may not be present. Suggest recollection and retest. REACTIVE: Antibodies to Hepatitis A detected. Hep C Ab NONREACT NONREACTIVE Comment: [employer] using KEESHA (chemiluminescent immunoassay) technology. NONREACTIVE: Antibodies to Hepatitis C not detected. This does not exclude early acute Hepatitis C infection, possibility of exposure to Hepatitis C, antibodies below detection limit, or to lack of antibody reactivity to the antigen used in this assay. EQUIVOCAL: Antibodies to Hepatitis C may or may not be present. ??Sample to be confirmed by real-time PCR method. REACTIVE: Antibodies to Hepatitis C detected. 07/21/2015 4:03 PM CDT 07/21/2015 4:08 PM CDT us Historical Provider LAB MICROBIOLOGY - GENERA L ORDERABLES Final Result [facility] HISTORICAL RESULTS from Last 3 Months or Most Recently Relevant to Health Maintenance Insurance [employer] MEDICARE PPO [employer] MEDIC[employer] PPO Advance Directives For more information, please contact: [phone] * Full Code (Latest Code Status on File) Date Activated Date Inactivated Comments 06/12/2022 2:27 PM 06/18/2022 5:57 PM Care Teams Pyrometer Operator Relationship Specialty Start Date End Date Nickie Negron MD [address] [facility] [address] [place] [address] [phone] (work) PCP - General 01/13/19
--- OUTSIDE RECORDS SUMMARY | 2024-10-27 10:52 | XMS_ITS | Encounter Summary ---
Author Organization [facility] Healthcare Address [address] [place] [address] Care Team Providers Care Ux Manager Name Role Phone Nickie Negron MD Primary Care Provider [phone]- [phone] Reason for Visit * Reason Onset Date Comments home health order 06/18/2024 Encounter Details Date Type Department Care Team (Late st Contact Info) Description 06/18/2024 Telephone [facility] Medical Group Neurology [facility] [address] [phone] Gera Perrin MD [address] [place] [id number] home health order Social History Tobacco Use Types Packs/Day Years [...] on file 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 Please refer to another agency. 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
--- OUTSIDE RECORDS SUMMARY | 2024-10-27 10:52 | XMS_ITS | Encounter Summary ---
Author Organization [facility] Healthcare Address [address] [place] [address] Care Team Providers Care Counter Pocket Trimmer Name Role Phone Nickie Negron MD Primary Care Provider [phone] Reason for Referral * Procedure (Routine) - Authorized Specialty Diagnoses / Procedures Referred By Contac t Referred To Contact Diagnoses Primary osteoarthritis of both knees Procedures Large Joint (Hip, Knee, Shoulder) Injection: L knee Gayle Lawson PA [address] [facility] [address] [place] [address] [place] [id number] Phone: tel: fax: [facility] Referral ID Status Reason Start Date Expiration Date V isits Requested Visits Authorized [id number] Authorized 08/12/2024 09/11/2025 1 1 * Procedure (Routine) - Authorized Specialty Diagnoses / Procedures Referred By Contac t Referred To Contact Diagnoses Primary osteoarthritis of both knees Procedures Large Joint (Hip, Knee, Shoulder) Injection: R knee Gayle Lawson PA [address] [facility] [address] [place] [address] [place] [id number] Phone: tel: fax: [facility] Referral ID Status Reason Start Date Expiration Date V isits Requested Visits Authorized [id number] Authorized 08/12/2024 09/11/2025 1 1 Reason for Visit * Reason Comments Pain Injections Pain Injections Encounter Details Date Type Department Care Team (Late st Contact Info) Description 08/12/2024 2:00 PM CDT Office Visit [facility] Orthopedics and Sports Medicine [address] [place] [address] [address] [place] [address] Gayle Lawson PA [address] [place] [address] [address] [place] [address] Primary osteoarthritis of both knees (Primary Dx) Social History Tobacco Use Types Packs/Day Years [...] on file 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 FOLLOW UP VISIT CHIEF COMPLAINT No chief complaint on file. HISTORY OF PRESENT ILLNESS Julius Andrade is a pleasant 73 y.o. male who presents to clinic for follow up of his bilateral knee osteoarthritis. The patient was last seen on 05/11/2024, at which time He received an intraarticular injection, which provided excellent relief for about 2.5 months. He does not take any medications regularly for pain. The patient presents today for a repeat injection and denies any other complaints at this time. REVIEW OF SYSTEMS Review of Systems Constitutional: Positive for activity change. Musculoskeletal: Positive for arthralgias and myalgias. Negative for joint swelling. PHYSICAL EXAMINATION There were no vitals taken for this visit. Right knee Inspection Erythema: absent Cellulitis: absent Swelling: mild Surgical scar/wound: absent. Skin temperature: normal Alignment: neutral Gait: antalgic Palpation Tenderness: present. The tenderness is located in the condyle, patella and tibial tubercle. Patellar tracking: normal Crepitus: positive Patella grind: positive Subluxation: negative Range of motion The patient has reduced range of motion of the right knee. The patient has pain with range of motion of the right knee. Extensor lag: no. Stability AP stability: stable ML stability: stable Varus stress at 0 degrees: stable Valgus stress at 0 degrees: stable Varus stress at 30 degrees: stable Valgus stress at 30 degrees: stable Pivot shift: negative Joseph: negative Anterior drawer: negative Posterior drawer: negative Strength The patient has 5/5 strength thoughout right knee. Neurovascular The patient has normal vascular on the right side of their body. The patient has normal sensation on the right side of their body. Special tests Megan: medial negative Megan: lateral negative Patellar apprehension: negative Left knee Inspection Erythema: absent Cellutlis: absent Swelling: mild Effusion: absent Surgical scar/wound: absent. Skin temperature: normal Alignment: neutral Gait: antalgic Palpation Tenderness: present. The tenderness is located in the condyle, patella and tibial tubercle. Patellar tracking: normal Crepitus: positive Patella grind: positive Subluxation: negative Range of motion The patient has reduced range of motion of the left knee. The patient has pain with range of motion of the left knee. Extensor lag: no. Stability AP stability: stable ML stability: stable Varus stress at 0 degrees: stable Valgus stress at 0 degrees: stable Varus stress at 30 degrees: stable Valgus stress at 30 degrees: stable Joseph: negative Anterior drawer: negative Posterior drawer: negative Strength The patient has 5/5 strength throughout. Neurovascular The patient has normal vascular on the left side of their body. The patient has normal sensation on the left side of their body. Special tests Megan: medial negative Megan: lateral negative Patellar apprehension: negative Large Joint (Hip, Knee, Shoulder) Injection: R knee Performed by: Gayle Lawson PA Authorized by: Gayle Lawson PA Large Joint Injection/Aspiration: Consent Given by: Patient Site marked: the procedure site was marked Timeout: prior to procedure the correct patient, procedure, and site was verified Verbal consent obtained: Yes Supporting Documentation: Indications: Pain Procedure Details: Location: Knee Site: R knee Prep: patient was prepped using a clean technique Needle Size: 22 G Approach: Anterolateral Medications: 1 mL lidocaine 20 mg/mL (2 %); 40 mg triamcinolone 40 mg/mL Patient tolerance: Patient tolerated the procedure well with no immediate complications Large Joint (Hip, Knee, Shoulder) Injection: L knee Performed by: Gayle Lawson PA Authorized by: Gayle Lawson PA Large Joint Injection/Aspiration: Consent Given by: Patient Site marked: the procedure site was marked Timeout: prior to procedure the correct patient, procedure, and site was verified Verbal consent obtained: Yes Supporting Documentation: Indications: Pain Procedure Details: Location: Knee Site: L knee Prep: patient was prepped using a clean technique Needle Size: 22 G Approach: Anterolateral Medications: 1 mL lidocaine 20 mg/mL (2 %); 40 mg triamcinolone 40 mg/mL Patient tolerance: Patient tolerated the procedure well with no immediate complications REVIEW OF X-RAYS/STUDIES DIAGNOSIS Diagnoses and all orders for this visit: Primary osteoarthritis of both knees (Primary) PLAN I provided Mr. Andrade with an intraarticular steroid injection into the bilateral knee under sterile conditions today, which He tolerated well. We discussed the continuation of activity modificationand use of antiinflammatories and/or Tylenol. He is to return to clinic in three months for reevaluation and possible repeat injection shall symptoms warrant it at that time. The patient may contact the office with any further questions or concerns. KIRSTIE Salas documented in this encounter Plan of Treatment Not on file documented as of this encounter Procedures Procedure Name Priority Date/Time Associated Diagnosis Comments OK ARTHROCENTESIS ASPIR&/INJ MAJOR JT/BURSA W/O US Routine 08/12/2024 2:00 PM CDT Primary osteoarthritis of both knees OK ARTHROCENTESIS ASPIR&/INJ MAJOR JT/BURSA W/O US Routine 08/12/2024 2:00 PM CDT Primary osteoarthritis of both knees documented in this encounter Results * OK ARTHROCENTESIS ASPIR&/INJ MAJOR JT/BURSA W/O US (08/12/2024 [...] IN CLINIC/BEDSIDE ORDERAB LES Final Result * OK ARTHROCENTESIS ASPIR&/INJ MAJOR JT/BURSA W/O US (08/12/2024 [...] THACKER IN CLINIC/BEDSIDE ORDERAB LES Final Result documented in this encounter Visit Diagnoses Diagnosis Primary osteoarthritis of both knees- Primary documented in this encounter Administered Medications Inactive Administered Medications - up to 3 most recent administrations Medication Order MAR Action Action Date Dose Rate Site lidocaine (XYLOCAINE) 20 mg/mL (2 %) injection 1 mL 1 mL, other, One-Time Injection, Starting on Sat08/12/24 at 1400, For 1 dose, Indications: Administration of Local AnesthesiaIndications:Administ ration of Local Anesthesia Given 08/12/2024 2:00 PM CDT 1 mL Right Knee lidocaine (XYLOCAINE) 20 mg/mL (2 %) injection 1 mL 1 mL, other, One-Time Injection, Starting on Sat08/12/24 at 1400, For 1 dose, Indications: Administration of Local AnesthesiaIndications:Administ ration of Local Anesthesia Given 08/12/2024 2:00 PM CDT 1 mL Left Knee triamcinolone (KENALOG) 40 mg/mL injection 40 mg 40 mg, intra-articular, One-Time Injection, Starting on Sat08/12/24 at 1400, For 1 doseIndications:Primary osteoarthritis of both knees Given 08/12/2024 2:00 PM CDT 40 mg Right Knee triamcinolone (KENALOG) 40 mg/mL injection 40 mg 40 mg, intra-articular, One-Time Injection, Starting on Sat08/12/24 at 1400, For 1 doseIndications:Primary osteoarthritis of both knees Given 08/12/2024 2:00 PM CDT 40 mg Left Knee documented in this encounter Historical Medications * This list may reflect changes made after this encounter. vitamins A,C,H-qceo-zuizjz (PreserVision AREDS) 4,296 mcg-226 mg-90 mg capsule daily triamcinolone (KENALOG) 0.1 % cream APPLY TOPICALLY TO THE AFFECTED AREA OF FEET TWICE DAILY tiZANidine (ZANAFLEX) 4 mg tablet Take 1 tablet (4 mg total) by mouth every 6 (six) hours as needed isosorbide mononitrate ER (IMDUR) 30 mg 24 hr tablet Take 0.5 tablets (15 mg total) by mouth daily 08/12/2024 added in this encounter Care Teams Counter Pocket Trimmer Relationship Specialty Start Date End Date Nickie Negron MD [phone] [address] PCP - General 01/13/19 documented as of this encounter
--- OUTSIDE RECORDS SUMMARY | 2024-10-27 10:52 | XMS_ITS | Data Portability ---
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 Name Role Phone KERRI MCKENZIE Primary Care Provider KERRI MCKENZIE Primary Care Provider Assessment Encounter Date Assessment Date Assessment LastModified by Organization Details LastModified Time 02/07/2022 02/07/2022 This document was scribed by OLAF Maynard Not available 02/07/2022 14:36:16 08/29/2023 08/29/2023 Patient Examined by OLAF Maynard, Also Documentation reviewed and approved by supervising physician renu Not available 08/29/2023 16:35:46 12/19/2023 12/19/2023 Patient Examined by OLAF Maynard, Also Documentation reviewed and approved by supervising physician griselda Not available 12/17/2023 06:56:31 Plan of Treatment Reminders Order Date Submit Date Provider Last Modified By Organization Details Last Modified Time Details Appointments None record ed. Lab None record ed. Referral None record ed. Procedures None record ed. Surgeries None record ed. Imaging None record ed. Medication Orders None record ed. Patient TargetsNo targets recorded. Patient Instructions Encounter Date Encounter Id Patient Instructions Last Modified By Organization Details Last Modified Time 02/07/2022 [id number] Peripheral Arterial Disease (PAD): Care Instructions [email or web address] Not available 02/07/2022 14:37:06 high blood pressure: care instructions [email or web address] Not available 02/07/2022 14:37:06 learning about high blood pressure [email or web address] Not available 02/07/2022 14:37:06 Exercise advised Low cholesterol diet advised Low sodium diet advised. [email or web address] Not available 02/07/2022 15:33:31 02/04/2023 [id number] Exercise advised Low cholesterol diet advised Low sodium diet advised. [email or web address] Not available 02/04/2023 12:16:56 08/29/2023 [id number] Low cholesterol diet advised Low sodium diet advised. [email or web address] Not available 08/29/2023 16:37:28 12/19/2023 [id number] Exercise advised Low cholesterol diet advised Low sodium diet advised. [email or web address] Not available 12/19/2023 15:51:58 Reason for Referral None Reported. Results Created Date Observation Date Name Description Value Unit Range Abnormal Flag Note LastModifiedBy Organization Detail LastModifiedTime 02/15/20 22 02/07/2022 elect rocar diogr am No observ ation record ed. [email or web address] Not Available 02/14 12:02:32 04/10/20 22 02/27/2022 US, carot id arter y No observ ation record ed. Not Available 2021 17:39:06 04/10/20 22 03/02/2022 US, duple x, arter ial, lower extre mity No observ ation record ed. Not Available 2021 17:46:13 08/13/20 22 08/09/2022 elect rocar diogr am No observ ation record ed. [email or web address] Not Available 2021 12:32:58 01/09/20 23 12/27/2022 (NAS) ankle brach ial index * No observ ation record ed. [email or web address] Not Available 2022 16:40:19 02/06/20 23 02/04/2023 elect rocar diogr am No observ ation record ed. Not Available 2022 14:14:24 09/04/20 23 08/29/2023 elect rocar diogr am No observ ation record ed. Not Available 2022 13:08:31 09/16/20 23 09/12/2023 US, echoc ardio gram No observ ation record ed. [facility] [address] [place], [place], [address], 09/23/2023 14:19:02 09/25/20 23 09/17/2023 rocio can cardi olite stres s test (PROC ) No observ ation record ed. Not Available 2022 12:30:54 12/25/19 24 12/19/2023 elect taylor paizgr am No observ ation record ed. Not Available 2023 11:50:24 Result Notes Documentation Provider Name and Address Organization Details Recorded Time Ck (creatine Kinase), Total, Serum : 12/25/23 CK 96 Zachary [place], [place] - [facility] 12/30/2023 10:31:22 Problems Name Problem SNOMED Code Status Onset Date Resolution Date Notes Provider Name and Address Organization Details Recorded Time Dyspnea 474302186 Active 2015 Zachary [place], [place] - [facility] 6 17:44:21 Benign hypertensio n 07692405 Completed 201512/25/2017 Katie [place], [place] - [facility] 8 12:15:54 Peripheral vascular disease 383738459 Active 2015 Zachary [place], [place] - [facility] 6 17:44:58 Kidney disease 52299414 Active 2015 Zachary [place], [place] - [facility] 6 17:46:26 Hypothyroid ism 15788298 Active 2015 Zachary [place], [place] - [facility] 6 17:50:25 Coronary arterioscle rosis 64012041 Active 2015 Zachary [place] - [facility] 6 17:52:22 Dyslipidemi a 640854679 Active 2016 LDL 80 Jen Carinahumberto [place], [place] - [facility] 8 10:03:56 Patient post percutaneou s translumina l coronary angioplasty 889479998 Active 2017 Zachary [place], [place] - [facility] 8 09:10:12 Essential hypertensio n 41801351 Active 2017 Katie Fabian [facility], [facility] 8 12:16:00 Dyspnea on exertion 12941529 Active 2017 Jen Lim [facility], [facility] 8 14:36:24 Notes:Some problems listed i n Document: #[id number] could not be added to this patient's chart. Please review this document and add these problems to the patient's chart manually as needed. Problem Notes None recorded. Procedures Surgical History None recorded. Imaging Results Imaging Date Name Status LastModified by Organization Details LastModified Time 02/07/2022 electrocardiogram completed [email or web address] Informa tion not available 02/14/2022 12:02:32 02/27/2022 US, carotid artery completed Inform ation not available 04/10/2022 17:39:06 03/02/2022 US, duplex, arterial, lower extremity completed Information not available 04/10/2022 17:46:13 08/09/2022 electrocardiogram completed [email or web address] Informa tion not available 08/13/2022 12:32:58 12/27/2022 (NAS) ankle brachial index* completed [email or web address] Information not available 01/08/2023 16:40:19 02/04/2023 electrocardiogram completed Informa tion not available 02/05/2023 14:14:24 08/29/2023 electrocardiogram completed Informa tion not available 09/04/2023 13:08:31 09/12/2023 US, echocardiogram completed [facility] [address], [place], [address], 09/23/2023 14:19:02 09/17/2023 lexiscan cardiolite stress test (PROC) completed Information not available 09/25/2023 12:30:54 12/19/2023 electrocardiogram completed Informa tion not available 12/26/2023 11:50:24 Procedure Notes None recorded. Medical Equipment None Reported. Allergies Allergen ID Allergen Name Allergen Category Reaction Reaction Severity Criticality Documentation Date Start Date Code Code System Note Provider Name and Address Organization Details Recorded Time 300 wheat gluten extract food Not available Not available Not available 01/27/2016 42883 81 RxNorm Zachary [facility], [place] - [facility] 6 17:50:45 Medications Name Sig Start Date Stop Date Status Note LastModified by Organization Details LastModified Time fluconazo le 100 mg tablet 12/09 completed Not Available Not Available Not Available cilostazo l 100 mg tablet Take 1 tablet twice a day by oral route. 12/24 completed Not Available Not Available Not Available levothyro xine 137 mcg tablet TAKE 1 TABLET BY MOUTH EVERY DAY IN THE MORNING active Not Available Not Available No t Available cilostazo l 50 mg tablet TAKE 1 TABLET BY MOUTH TWICE DAILY active Not Available Not Available No t Available tizanidin e 4 mg tablet TAKE 1 TABLET BY MOUTH EVERY DAY AT BEDTIME 08/29 completed Not Available Not Available Not Available polysacch aride iron complex 150 mg iron capsule TAKE 1 CAPSULE BY MOUTH EVERY OTHER DAY active Not Available Not Available No t Available prednison e 20 mg tablet TAKE 3 TABLETS BY MOUTH DAILY FOR 3 DAYS THEN TAKE 2 TABLETS BY MOUTH DAILY FOR 3 DAYS THEN TAKE 1 TABLET BY MOUTH DAILY FOR 4 DAYS 08/29 completed Not Available Not Available Not Available Synthroid 100 mcg tablet Take 1 tablet every day by oral route. 06/24 completed Not Available Not Available Not Available doxycycli ne hyclate 50 mg capsule qd 12/25 completed Not Available Not Available Not Available Viagra 50 mg tablet PRN 08/29 completed no longer take Not Available Not Available Not Available potassium chloride ER 10 mEq tablet,ex tended release 1 tab qd 06/24 completed Not Available Not Available Not Available metronida zole 500 mg tablet 12/09 completed Not Available Not Available Not Available clopidogr el 75 mg tablet TAKE 1 TABLET BY MOUTH EVERY DAY active Not Available Not Available No t Available ciproflox acin 250 mg tablet TAKE 1 TABLET BY MOUTH TWICE DAILY 08/27 completed no longer take Not Available Not Available Not Available levofloxa cheryl 250 mg tablet 12/24 completed Not Available Not Available Not Available allopurin ol 100 mg tablet OD 08/29 completed Not Available Not Available Not Available ciproflox acin 500 mg tablet 08/27 completed no longer take Not Available Not Available Not Available aspirin 81 mg tablet,de layed release TAKE 1 TABLET BY MOUTH EVERY DAY active Not Available Not Available No t Available tramadol 50 mg tablet 08/29 completed Not Available Not Available Not Available triamcino lone acetonide 0.1 % topical cream APPLY TOPICALL Y TO THE AFFECTED AREA OF FEET TWICE DAILY active Not Available Not Available No t Available carvedilo l 3.125 mg tablet TAKE 1 TABLET BY MOUTH TWICE DAILY. DISCONTI NUE LISINOPR [place] active Not Available Not Available No t Available pantopraz ole 20 mg tablet,de layed release TAKE 1 TABLET BY MOUTH DAILY active Not Available Not Available No t Available potassium chloride ER 20 mEq tablet,ex tended release(p art/cryst ) 12/24 completed Not Available Not Available Not Available magnesium oxide 400 mg (241.3 mg magnesium ) tablet Take every day by oral route. 12/25 completed Not Available Not Available Not Available pravastat in 10 mg tablet TAKE 1 TABLET BY MOUTH EVERY NIGHT AT BEDTIME active Not Available Not Available No t Available sodium bicarbona te 650 mg tablet TAKE 2 TABLETS BY MOUTH THREE TIMES DAILY active Not Available Not Available No t Available cephalexi n 500 mg capsule TAKE 1 CAPSULE BY MOUTH EVERY 6 HOURS active Not Available Not Available No t Available pantopraz ole 40 mg tablet,de layed release 08/27 completed Not Available Not Available Not Available levothyro xine 125 mcg tablet TAKE 1 TABLET BY MOUTH EVERY DAY IN THE MORNING 08/27 completed Not Available Not Available Not Available neomycin- polymyxin -dexameth 3.5 mg/mL-10, 000 unit/mL-0 .1% eye drops 06/24 completed Not Available Not Available Not Available clotrimaz ole-betam ethasone 1 %-0.05 % topical cream 12/09 completed Not Available Not Available Not Available lisinopri l 10 mg tablet TAKE 1 TABLET BY MOUTH EVERY DAY 08/29 completed 08/09/21 Pt not taking anymore- cji Not Available Not Available Not Available Pravachol 20 mg tablet Take 1 tablet every day by oral route. 12/25 completed Not Available Not Available Not Available Synthroid 88 mcg tablet 12/24 completed Not Available Not Available Not Available levothyro xine 150 mcg tablet TAKE 1 TABLET BY MOUTH EVERY DAY IN THE MORNING active Not Available Not Available No t Available Advair Diskus 250 mcg-50 mcg/dose powder for inhalatio n Inhale 1 puff twice a day by inhalati on route. active Not Available Not Available No t Available folic acid 1 mg tablet TAKE 1 TABLET BY MOUTH EVERY DAY active Not Available Not Available No t Available Synthroid 112 mcg tablet Take 1 tablet every day by oral route for 90 days. 08/29 completed 08/09/21 pt not taking anymore Not Available Not Available Not Available levofloxa cheryl 500 mg tablet 12/09 completed Not Available Not Available Not Available methylpre dnisolone 4 mg tablets in a dose pack 12/25 completed complete d Not Available Not Available Not Available albuterol sulfate HFA 90 mcg/actua tion aerosol inhaler INHALE 2 PUFFS BY MOUTH EVERY 8 HOURS NEEDED active Not Available Not Available No t Available fluticaso ne propionat e 50 mcg/actua tion nasal spray,autumn pension SHAKE LIQUID AND USE 1 SPRAY IN EACH NOSTRIL EVERY DAY active Not Available Not Available No t Available cholecalc iferol (vitamin D3) 125 mcg (5,000 unit) capsule TAKE 1 TABLET BY MOUTH EVERY DAY active Not Available Not Available No t Available doxycycli ne hyclate 100 mg tablet active no longer take Not Available Not Available Not Available amoxicill in 500 mg-potass ium clavulana te 125 mg tablet 12/24 completed Not Available Not Available Not Available Tylenol Extra Strength 500 mg tablet prn active Not Available Not Available Not Available cholestyr amine (with sugar) 4 gram oral powder DISSOLVE 1 SCOOP IN FLUID AND DRINK IN THE EVENING NEEDED active Not Available Not Available No t Available bupropion HCl XL 150 mg 24 hr tablet, extended release TAKE 1 TABLET BY MOUTH EVERY DAY active Not Available Not Available No t Available BD Ultra-Fin e Mini Pen Needle 31 gauge x 01/10 completed Not Available Not Available Not Available ferrous sulfate 325mg qd 06/25 completed Not Available Not Available Not Available Sure Comfort Pen Needle 31 gauge x 03/12 completed Not Available Not Available Not Available diclofena c 1 % topical gel APPLY 2 GRAMS TOPICALL Y TO THE AFFECTED AREA FOUR TIMES DAILY active Not Available Not Available No t Available Forteo 20 mcg/dose (600 mcg/2.4 mL) subcutane ous pen injector 12/09 completed Not Available Not Available Not Available Uloric 40 mg tablet Take 1 tablet every day by oral route. 08/29 completed Pt is not taking this medicati on Not Available Not Available Not Available mesalamin e 800 mg tablet,de layed release TAKE 1 TABLET BY MOUTH TWICE DAILY active Not Available Not Available No t Available cyanocoba mikael (B12)-cob amamide 5,000 mcg-100 mcg sublingua l lozenge Place by sublingu al route. active Not Available Not Available No t Available Prolia 60 mg/mL subcutane ous syringe Inject 1 mL by subcutan eous route. active Not Available Not Available No t Available Suprep Bowel Prep Kit 17.5 gram-3.13 gram-1.6 gram oral solution 12/09 completed Not Available Not Available Not Available Delzicol 400 mg capsule,d elayed release Take 2 capsules twice a day by oral route. 06/25 completed Not Available Not Available Not Available PreserVis ion AREDS-2 250 mg-90 mg-40 mg-1 mg capsule Take 1 tablet twice a day by oral route. active Not Available Not Available No t Available Vitamin B12 1 TABLET ONCE A DAY 08/27 completed Not Available Not Available Not Available Fluzone High-Dose 0735-8566 (PF) 180 mcg/0.5 mL intramusc ular syringe 10/05 completed Not Available Not Available Not Available Shingrix (PF) 50 mcg/0.5 mL intramusc ular suspensio n, kit 10/05 completed Not Available Not Available Not Available Fluad 65yr up(PF)45 mcg(15 mcgx3)/0. 5 mL intramusc ular syringe 10/05 completed Not Available Not Available Not Available Fluad Quad (65yr up)(PF) 60 mcg (15 mcg x 4)/0.5mL IM syringe ADM 0.5ML IM UTD 10/05 completed Not Available Not Available Not Available Vitals Date Recorded Body height Body mass index (BMI) Body weight Heart rate Oxygen saturation Oxygen saturation in Arterial blood by Pulse oximetry Systolic blood pressure Diastolic blood pressure Provider Name and Address Organization Details Last Updated DateTime 2 162.56 cm 24.9 kg/m2 59334.4 3 g 80 /min 94 % 94 % 124 mm[Hg] 68 mm[Hg] Eve Muir [facility] 2 14:20:21 Date Recorded Body height Body mass index (BMI) Body weight Heart rate Oxygen saturation Oxygen saturation in Arterial blood by Pulse oximetry Systolic blood pressure Diastolic blood pressure Provider Name and Address Organization Details Last Updated DateTime 2 162.56 cm 24.5 kg/m2 91310.7 1 g 68 /min 93 % 93 % 144 mm[Hg] 72 mm[Hg] Eve Muir [facility] 2 10:53:33 Date Recorded Body height Body mass index (BMI) Body weight Oxygen saturation Oxygen saturation in Arterial blood by Pulse oximetry Heart rate Systolic blood pressure Diastolic blood pressure Provider Name and Address Organization Details Last Updated DateTime 3 162.56 cm 26 kg/m2 16559.9 6 g 96 % 96 % 80 /min 132 mm[Hg] 80 mm[Hg] JOSE FRANCISCO KRUEGER [facility] 3 11:48:00 Date Recorded Body height Body mass index (BMI) Body weight Heart rate Oxygen saturation Oxygen saturation in Arterial blood by Pulse oximetry Systolic blood pressure Diastolic blood pressure Provider Name and Address Organization Details Last Updated DateTime 3 162.56 cm 26.8 kg/m2 04233.4 1 g 78 /min 96 % 96 % 128 mm[Hg] 64 mm[Hg] Angelita Richardsonran [facility] 3 16:08:01 Date Recorded Body height Body mass index (BMI) Body weight Heart rate Oxygen saturation Oxygen saturation in Arterial blood by Pulse oximetry Systolic blood pressure Diastolic blood pressure Provider Name and Address Organization Details Last Updated DateTime 4 162.56 cm 27.1 kg/m2 49599.9 5 g 83 /min 98 % 98 % 130 mm[Hg] 70 mm[Hg] Татьяна Garcia [facility] 4 15:35:12 Social History Question Answer Notes LastModified by Organizat ion Details LastModified Time Tobacco Smoking Status Former Smoker Zachary andino [facility] 01/27/2016 17:51:27 Do You Have An Advance Directive? Yes [email or web address] Information not available 01/30/2016 What Is Your Level Of Alcohol Consumption? Moderate 4 Beers/wee k Information not available 01/27/2016 What Is Your Level Of Caffeine Consumption? Occasional [email or web address] Information not available 01/30/2016 What Type Of Diet Are You Following? REGULAR [email or web address] Information not available 01/30/2016 Do You Or Have You Ever Used E-cigarettes Or Vape? Never Used Electronic Cigarettes Information not available 12/06/2019 Live Alone Or With Others? With Others [email or web address] Information not available 01/30/2016 What Was The Date Of Your Most Recent Tobacco Screening? 06/17/2019 Information not available 12/06/2019 Do You Or Have You Ever Used Smokeless Tobacco? Former Smokeless Tobacco User Information not available 12/06/2019 General Stress Level Low [email or web address] Information not available 01/30/2016 Sex: Unknown Functional Status Question Answer Note LastModified by Organization D etails LastModified Time What is your exercise level? None Information not available 01/30/2016 Mental Status None recorded. Family History Relationship Description Onset Age of this Age Resolved Age Notes LastModified by Organization Details LastModified Time Father Cerebrovascu lar accident [email or web address] Not available 10/2015 17:51:05 Mother Hypertensive disorder [email or web address] Not available 2015 17:51:14 Medical History Condition Response Coronary Artery Disease Y Thyroid Disease Y Atrial Fibrillation N Depression N Congenital Heart Disease N COPD N Peripheral Arterial Disease Y Pacemaker N Anemia N TIA N Genitourinary Disease N Gastrointestinal Disease Y Deep Vein Thrombosis N Diabetes N Cardiomyopathy N Blood Clot N Myocardial Infarction N Congestive Heart Failure (CHF) N Valvular Heart Disease N Hyperlipidemia N Cancer N Stroke N Asthma N Atrial Flutter N Carotid Disease N Sleep Apnea N High Cholesterol Y Aortic Aneurysm N Warfarin Management N Sleep Disorder N GERD/Reflux N Neurologic Disorder N Liver Disease N Valvular Abnormalities N Heart Disease N Arrhythmia N Hypertension Y Kidney Disease Y Hematologic Disease N Past Encounters Encounter ID Performer Location Encounter Start Date Encounter Closed Date Diagnosis/Indication Diagnosis SNOMED-CT Code Diagnosis ICD10 Code [id number] MD Andra [facility] Office [address] [place] [address] 01/30/2016 11:53:11 01/30/2016 15:59:11 Coronary arteriosclerosis 98567738 I25.10 Peripheral vascular disease 438429298 I73.9 Dyspnea 101183399 R06.00 Kidney disease 59838508 N08 [id number] MD Andra Rooney Office [address] [place] [address] 02/22/2016 14:13:18 02/22/2016 18:33:04 Benign hypertension 15416309 I[address] percutaneous transluminal coronary angioplasty 405132341 Z98.61 Peripheral vascular disease 863708630 I73.9 Kidney disease 39371040 N08 [id number] MD Andra Rooney Office [address] [place] [address] 06/25/2016 11:29:02 06/26/2016 17:17:41 Benign hypertension 70771162 I[address] percutaneous transluminal coronary angioplasty 224930620 Z98.61 Peripheral vascular disease 955571891 I73.9 Kidney disease 24797045 N08 Dyslipidemia 781912319 E 78.5 [id number] MD Andra Rooney Office [address] [place] [address] 12/24/2016 11:05:41 12/25/2016 11:22:21 Benign hypertension 81400257 I[address] percutaneous transluminal coronary angioplasty 945162743 Z98.61 Peripheral vascular disease 658017805 I73.9 Kidney disease 46568274 N08 Dyslipidemia 117670688 E 78.5 Dyspnea 652759305 R06.00 [id number] MD Andra Rooney Office [address] [place] [address] 06/24/2017 10:38:07 06/24/2017 14:55:45 Dyspnea 095593394 R06.00 Benign hypertension 1072 [address] percutaneous transluminal coronary angioplasty 699437059 Z98.61 Peripheral vascular disease 679647267 I73.9 Kidney disease 98539245 N08 Dyslipidemia 580106469 E 78.5 Hyperlipidemia 38546115 E78.5 [id number] Rufus Aldridge Office [address] [place] [address] 12/25/2017 13:33:13 12/26/2017 14:35:43 Dyspnea 221625113 R06.00 Benign hypertension 10[address] percutaneous transluminal coronary angioplasty 476903939 Z98.61 Peripheral vascular disease 499635292 I73.9 Kidney disease 63624516 N08 Dyslipidemia 559774331 E 78.5 Hyperlipidemia 10140587 E78.5 [id number] [facility] [address] [place] [address] 06/04/2018 14:07:14 06/04/2018 14:27:03 Coronary arteriosclerosis 89690043 I25.10 Essential hypertension 78973187 I10 Peripheral vascular disease 123095073 I73.9 Dyslipidemia 849626537 E 78.5 Dyspnea on exertion 6084 5006 R06.09 [id number] Rufus Obrienmaureen e Office [address] [place] [address] 12/03/2018 14:13:39 12/03/2018 16:09:11 Coronary arteriosclerosis 50640967 I25.10 Essential hypertension 10445926 I10 Peripheral vascular disease 476372335 I73.9 Dyslipidemia 292624001 E 78.5 Dyspnea on exertion 6084 5006 R06.09 [id number] Millie Vcitorneo Silverman e Office [address] [place] [address] 06/17/2019 14:02:50 06/17/2019 14:54:44 Coronary arteriosclerosis 52943257 I25.10 Essential hypertension 29131948 I10 Peripheral vascular disease 574803932 I73.9 Dyslipidemia 656456484 E 78.5 Dyspnea on exertion 6084 5006 R06.09 [id number] MD Andra Rooney e Office [address] [place] [address] 12/09/2019 14:41:55 12/09/2019 15:46:24 Coronary arteriosclerosis 00154694 I25.10 Essential hypertension 45418198 I10 Peripheral vascular disease 277165085 I73.9 Dyslipidemia 451894662 E 78.5 Dyspnea on exertion 6084 5006 R06.09 [id number] Stuart Murray MD [facility] [address] [place] [address] 04/01/2020 10:01:21 04/18/2020 13:18:23 Coronary arteriosclerosis 79246226 I25.10 Essential hypertension 44162323 I10 Peripheral vascular disease 128542766 I73.9 Dyslipidemia 022135980 E 78.5 Dyspnea on exertion 6084 5006 R06.09 [id number] Millie Aldridge Office [address] [place] [address] 04/20/2020 14:45:30 04/20/2020 15:10:59 Coronary arteriosclerosis 39615237 I25.10 Essential hypertension 69131761 I10 Peripheral vascular disease 808093605 I73.9 Dyslipidemia 345603537 E 78.5 Dyspnea on exertion 6084 5006 R06.09 [id number] MD Andra Rooney Office [address] [place] [address] 10/05/2020 14:23:18 10/05/2020 14:55:07 Coronary arteriosclerosis 09798321 I25.10 Essential hypertension 68555439 I10 Peripheral vascular disease 917029417 I73.9 Dyslipidemia 573436746 E 78.5 Dyspnea on exertion 6084 5006 R06.09 [id number] Millie Aldridge Office [address] [place] [address] 01/20/2021 10:42:34 01/20/2021 11:07:56 Coronary arteriosclerosis 44174170 I25.10 Essential hypertension 11393579 I10 Peripheral vascular disease 251696372 I73.9 Dyslipidemia 799702325 E 78.5 Dyspnea on exertion 6084 5006 R06.09 [id number] MD Andra Rooney Office [address] [place] [address] 08/09/2021 17:48:13 08/09/2021 18:08:28 Peripheral vascular disease 320052380 I73.9 Coronary arteriosclerosis [id number] I25.10 Essential hypertension 28231450 I10 Dyslipidemia 881333430 E 78.5 Dyspnea on exertion 6084 5006 R06.09 [id number] MD [facility] [address] [place] [address] [place] [address] 02/07/2022 14:04:40 02/07/2022 15:40:14 Peripheral vascular disease 953822299 I73.9 Coronary arteriosclerosis 19038266 I25.10 Essential hypertension 10002901 I10 Dyslipidemia 444250442 E 78.5 Dyspnea on exertion 6084 5006 R06.09 Carotid ar eulalia stenosis 25802637 I65.29 [id number] MD Andra Rooney Office [address] [place] [address] 08/09/2022 10:21:03 08/09/2022 11:09:08 Peripheral vascular disease 047340304 I73.9 Coronary arteriosclerosis 37403826 I25.10 Essential hypertension 52994065 I10 Dyslipidemia 425269085 E 78.5 Dyspnea on exertion 6084 5006 R06.09 Carotid ar eulalia stenosis 79251857 I65.29 [id number] Stuart Murray MD [facility] [address] [place] [address] 02/04/2023 11:18:08 02/04/2023 12:21:07 Peripheral vascular disease 648116428 I73.9 Coronary arteriosclerosis 09781627 I25.10 Essential hypertension 63272688 I10 Dyslipidemia 850000960 E 78.5 Dyspnea on exertion 6084 5006 R06.09 Carotid ar eulalia stenosis 03450489 I65.29 24025 [facility] OFFICE [address] [place] [address] 08/29/2023 15:51:51 08/29/2023 16:39:18 Coronary arteriosclerosis 65384960 I25.10 Dyspnea on exertion 6084 5006 R06.09 Essential hypertension 53092916 I10 Dyslipidemia 679246295 E 78.5 [id number] [facility] OFFICE [address] [place] [phone] 12/19/2023 15:27:25 12/19/2023 15:55:14 Coronary arteriosclerosis 23847277 I25.10 Dyspnea on exertion 6084 5006 R06.09 Essential hypertension 59428215 I10 Dyslipidemia 831601747 E 78.5 Health Concerns Section Related Observation LastModified by Organization Detai ls LastModified Time None Recorded Concern Status LastModified by Organization Details LastModified Time None Recorded Advance Directives Directive Y: Payers Encounter Date Sequence Insurance Name Policy Number Policy Collado Covered Member ID Collado Member ID Guarantor Name 02/07/2022 1 [employer] (MEDICARE REPLACEMENT/ ADVANTAGE - PPO) Julius Andrade [id number] Julius Andrade 02/07/2022 2 [employer] - FOR LIFE (MEDICARE SUPPLEMENT) Julius Andrade [id number] Julius Andrade 08/09/2022 1 [employer] (MEDICARE REPLACEMENT/ ADVANTAGE - PPO) Julius Andrade [id number] Julius Andrade 08/09/2022 2 [employer] - FOR LIFE (MEDICARE SUPPLEMENT) Julius Andrade [id number] Julius Andrade 02/04/2023 1 [employer] (MEDICARE REPLACEMENT/ ADVANTAGE - PPO) Julius Andrade [id number] Julius Andrade 02/04/2023 2 [employer] - FOR LIFE (MEDICARE SUPPLEMENT) Julius Andrade [id number] Julius Andrade 08/29/2023 1 [employer] (MEDICARE REPLACEMENT/ ADVANTAGE - PPO) Julius Andrade [id number] Julius Andrade 08/29/2023 2 [employer] - FOR LIFE (MEDICARE SUPPLEMENT) Julius Andrade [id number] Julius Andrade 12/19/2023 1 [employer] (MEDICARE REPLACEMENT/ ADVANTAGE - PPO) Julius Andrade [id number] Julius Andrade 12/19/2023 2 [employer] - FOR LIFE (MEDICARE SUPPLEMENT) Julius Andrade [id number] Julius Andrade Notes Date Note Type Note Provider Name and Address Organization Details Recorded Time 02/07/2022 text/html 02/07/22CC : Car diac follow up chest pain and dyspnea on [id number] year-old white man, with h/o coronary artery disease s/p PCI x2 (02/16/16), hypertension, dyslipidemia, and PVD is here for 6 month follow up with ECHO results. He was last seen in the clinic on 08/09/21, since then he is doing well in general. He denied chest pain or dyspnea on exertion. He is been active with no problem. His has 80 % stenosis of the left carotid.He denies ER visits and hospitalizations since he was last seen. Had Carotid ulrasound with severe stenosis, no CVA, no TIADenies chest pain.Denies shortness of breath at rest. Has mild dyspnea on exertion.No orthopnea. No PNDs.Denies heart palpitations.Denies dizziness. Denies syncope or near syncope.No ankle or leg edema.No major bleeding events.No reported side effects from medications. Taking medications as prescribed with no missed doses.Denies snoring, daytime somnolence and AM headache.*Last LDL was 70 done on 06/12/18 .Pt dose not takes any statins. *Had ECHO done on 08/16/21 showed LV chamber size is normal,LV wall thickness is normal,the estomated LVEF is 55-60%,LV relaxation is impaired.there is mild aortic root calcification,mitral valve prolpase cannot be ruled out,there is a dense posterior mitral annular calcification,there is mild tricuspid regurgitation,estimate d RVSP systolic pressure is 32 mmHg. Previously :*He had carotid US that showed severe disease on the left. *Had NAS done in 04/21/20 showed Calcified non-compressible lower extremity arteries. *Had positive stress test done in 12/23/19 with ischemia in apical area. Normal LV systolic function. LVEF 66% . *Had arterial doppler done in 01/13/19 showed Patent arterial tree of the left lower extremity. NAS may be unreliable secondary to vessel noncompressibility. Digital pressures suggest adequate wound healing potential. Previously, He was in the hospital in 02/16/16 for and PCI/Stenting of RCA which done with excellent result. Results from this visit, or from the past: 04/18/2020:Glucose 97,BUN 32,ALT 12,Alkaline phosphatase 80,ALT 12Ca 9.7,CO2 13Mag 2.0,FT41.15Na 138,K 4.8Cl 110Vitamin D 53.8Uric Acid 3.1TSH 6.19 CBC: WBC 10.0,RBC 4.0,HGB 12.6,HCT 40,PLT 191 CMP, serum or plasma 11-03-2019 11/03/19:Na 140,K 5.0,Cl 112,CO2 10,GLU 117,BUN 54,Cr 3.7,AST 28,ALT 15 . panel, blood 12-10-2018 12/10/18: TC 158, TG 54, HDL 87 ,LDL 60, CBC w/ diff 11-03-2016 11/03/19: WBC 19.8,RBC 4.15,HGB 12.6,HCT 39.9,PLT 277. 12/10/18: NA 139 , K 4.6, CL 107 ,CO2 16, GLU 93, BUN 19, CR 1.8,12/10/18: TC 158, TG 54, HDL 87 ,LDL 60, 06/13/18: Na 138 ,K 4.6 ,CL 107 ,CO2 15, GLU 102 ,BUN 25 ,CR 1.5 ,CMP, serum or plasma 06-14-2018 06/13/18: Na 138 ,K 4.6 ,CL 107 ,CO2 15, GLU 102 ,BUN 25 ,CR 1.5 ,lipid panel, blood 06-13-2018 TR: 69, TC: 166, HDL: 82, LDL: : SOD 142, K 3.9, CL 113, CO2 18, GL 89, BUN 25, CR 1.59 TC 164, HDL 73, TR 51, LDL 80, AST 20, ALT 32 11/23/16: Na 141 ,K 3.3 ,CL 106 ,CO2 25 ,GLU 97 ,BUN 18 ,CR 1.803 : TC 148. TG 106. LDL 62. HDL 65. AST 21. ALT 23 . 10/05/2020 ekg ; nON SPECIFIC st-t DEPRESSION INFEROLATERTAL LEADS EKG, 12/09/19: Sinus tachycardia, mu CT, angiogram, abdomen + pelvis, w/wo contrast 11-03-2019 11/03/2019 : CT Abdomen +pevis WO IV Contrast: 1) No acute abnormality is identified with in the abdomen or pelvis 2) Punctate 2mm non obstructing stone with? XR, chest 11-03-2019 11/03/2019 : Chest X-Ray : No acute cardiopulmonary abnormality 12/03/18 EKG: Sinus rhythm. Within normal limits. EKG 06/04/18: sinus rhythm. nonspecific ST depression-nondiagnost ic. AbnormalEKG 12/25/2017: NSR, NSST changesEK06/24/17 Sinus rhythm. Within normal limits 11/20/16 EKG: Sinus rhythm with frequent premature ventricular complexes. T-wave changes. When compared with ECG of 09-APR-2016, Premature ventricular complexes are now present. T wave inversion now evident in inferior leads. EK04/09/16 Normal sinus rhythm. Normal ECG. When compared with ECG of 17-FEB-2016 No significant change was found. US, carotid artery 01/19/2021 Antegrade flow noted in both vertebral arteries. Mild right, internal carotid artery stenosis with less than 50% diameter stenosis. Severe left internal carotid artery stenosis with more than 80% diameter stenosis. US, doppler, arterial 04-21-2020 NAS: Calcified non-compressible lower extremity arteries. 12/23/19 TDM- Positive stress test. Reversible defect consistent with ischemia in apical area. Normal LV systolic function. LVEF 66% 11/03/2019 : CT Abdomen +pevis WO IV Contrast: 1) No acute abnormality is identified with in the abdomen or pelvis 2) Punctate 2mm non obstructing US Arterial 01/13/19Arterial doppler 01/13/2019 Patent arterial tree of the left lower extremity. NAS may be unreliable secondary to vessel noncompressibility. Digital pressures suggest adequate wound healing potential 01/06/19 ECHO: LV chamber size is normal. There is borderline LV hypertrophy. There is normal global systolic function and contractility. The estimated left ventricle ejection fraction is 60-65%(normal). Normal left atrial pressure with grade I diastolic dysfunction. There is mild aortic valve sclerosis without significant stenosis. Mitral valve prolapse cannot be ruled out. There is restriction of the mitral valve posterior leaflet. There is a dense posterior mitral annular calcification. There is mild mitral regurgitation. There is trace tricuspid regurgitation. 01/01/18 ECHO: Study quality: technically difficult. LV chamber size is normal. LV wall thickness is normal. There is normal global systolic function and contractility. The estimated left ventricle ejection fraction is 55-60% (normal). Normal left atrial pressure with grade I diastolic dysfunction. RV size is mildly dilated. There is mild thickening of mitral valve anterior and posterior leaflets. There is a dense posterior mitral annular calcification. There is mild mitral regurgitation. There is mild tricuspid regurgitation. ECHO: 01/13/16 Overall left ventricular systolic function is normal with an EF between 60-65%. Abnormal relaxation filling pattern of the left ventricle for age (stage I diastolic dysfunction). There is mild annular calcification present. Mild mitral regurgitation is present. Right ventricular systolic pressure is normal at <35mmHg. NUC:01/13/16 Positive stress test. Reversible defect consistent with ischemia in Anterior area. Normal LV systolic function. Exercise tolerance is poor. LVEF 62%. 02/16/2016 CATH: severely calcified RCA s/p successful atherectomy and PCI/stenting (2.5 x 8 mm Resolute JAYSHREE mid, 2.25 x 8 mm Resolute JAYSHREE mid/distal, final diameter of prox/mid segment 2.9 mm). Stent Placement. 02/16/16 CT, abdomen + pelvis, w/ contrast No CT evidence of retroperitoneal hematoma , Fat stranding at the right groin with catheters . Focal distal esophageal wall thickening , nonspecific . follow up is recommended. Prominence of the proximal colon with gas/fluid levels , indeterminate , follow up is recommended as a sublte stricture is a possibility , no definitive obstruction . 11/20/16 CHEST PORTABLE: Stable appearance of the chest. No evidence of an acute cardiopulmonary abnormality. CT, abdomen + pelvis, w/ contrast 02-16-[address] evidence of retroperitoneal hematoma , Fat stranding at the right groin with catheters . Focal distal esophageal wall thickening , nonspecific . follow up is?eft heart catheterization 02-16-2016 Stent Placement XR, chest 11-03-2019 11/03/2019 : Chest X-Ray : No acute cardiopulmonary abnormality Stuart Murray MD [address] [place], [address], [facility] 02/07/2022 15:33:41 08/09/2022 text/html 08/09/22CC : Car diac follow up , dyspnea on [id number] year-old white man, with h/o coronary artery disease s/p PCI x2 (02/16/16), hypertension, dyslipidemia, and PVD is here for 6 month follow up with lower extremity arterial duplex and Carotid US results. He was last seen in the clinic on 02/07/22, since then he was in the hospital on 06/18/22.He had Carotid US on 02/27/22 showed Antegrade flow noted in both vertebral arteries. Mild bilateral internal carotid artery stenosis with less than 50% diameter stenosis,Denies chest pain.Denies shortness of breath at rest. Has mild dyspnea on exertion.No orthopnea. No PNDs.Denies heart palpitations.Denies dizziness. Denies syncope or near syncope.No ankle or leg edema.No major bleeding events.No reported side effects from medications. Taking medications as prescribed with no missed doses.Denies snoring, daytime somnolence and AM headache.*Last LDL was 70 done on 06/12/18 .Pt dose not takes any statins. *Had Lower Extremity Arterial Duplex on 03/02/22 showed Mild PVD. *Had Carotid US on 02/27/22 showed Antegrade flow noted in both vertebral arteries. Mild bilateral internal carotid artery stenosis with less than 50% diameter stenosis, *Had ECHO done on 08/16/21 showed LV chamber size is normal,LV wall thickness is normal,the estimated LVEF is 55-60%,LV relaxation is impaired.there is mild aortic root calcification,mitral valve prolapse cannot be ruled out,there is a dense posterior mitral annular calcification,there is mild tricuspid regurgitation,estimate d RVSP systolic pressure is 32 mmHg. *Had NAS done in 04/21/20 showed Calcified non-compressible lower extremity arteries. *Had positive stress test done in 12/23/19 with ischemia in apical area. Normal LV systolic function. LVEF 66% . *Had arterial doppler done in 01/13/19 showed Patent arterial tree of the left lower extremity. NAS may be unreliable secondary to vessel non compressibility. Digital pressures suggest adequate wound healing potential. He was in the hospital in 02/16/16 for and PCI/Stenting of RCA which done with excellent result. Results from this visit, or from the past: 04/18/2020:Glucose 97,BUN 32,ALT 12,Alkaline phosphatase 80,ALT 12Ca 9.7,CO2 13Mag 2.0,FT41.15Na 138,K 4.8Cl 110Vitamin D 53.8Uric Acid 3.1TSH 6.19 CBC: WBC 10.0,RBC 4.0,HGB 12.6,HCT 40,PLT 191 CMP, serum or plasma 11-03-2019 11/03/19:Na 140,K 5.0,Cl 112,CO2 10,GLU 117,BUN 54,Cr 3.7,AST 28,ALT 15 . panel, blood 12-10-2018 12/10/18: TC 158, TG 54, HDL 87 ,LDL 60, CBC w/ diff 11-03-2016 11/03/19: WBC 19.8,RBC 4.15,HGB 12.6,HCT 39.9,PLT 277. 12/10/18: NA 139 , K 4.6, CL 107 ,CO2 16, GLU 93, BUN 19, CR 1.8,12/10/18: TC 158, TG 54, HDL 87 ,LDL 60, 06/13/18: Na 138 ,K 4.6 ,CL 107 ,CO2 15, GLU 102 ,BUN 25 ,CR 1.5 ,CMP, serum or plasma 06-14-2018 06/13/18: Na 138 ,K 4.6 ,CL 107 ,CO2 15, GLU 102 ,BUN 25 ,CR 1.5 ,lipid panel, blood 06-13-2018 TR: 69, TC: 166, HDL: 82, LDL: : SOD 142, K 3.9, CL 113, CO2 18, GL 89, BUN 25, CR 1.59 TC 164, HDL 73, TR 51, LDL 80, AST 20, ALT 32 11/23/16: Na 141 ,K 3.3 ,CL 106 ,CO2 25 ,GLU 97 ,BUN 18 ,CR 1.803/ : TC 148. TG 106. LDL 62. HDL 65. AST 21. ALT 23 . 10/05/2020 ekg ; nON SPECIFIC st-t DEPRESSION INFEROLATERTAL LEADS EKG, 12/09/19: Sinus tachycardia, mu CT, angiogram, abdomen + pelvis, w/wo contrast 11-03-2019 11/03/2019 : CT Abdomen +pevis WO IV Contrast: 1) No acute abnormality is identified with in the abdomen or pelvis 2) Punctate 2mm non obstructing stone with? XR, chest 11-03-2019 11/03/2019 : Chest X-Ray : No acute cardiopulmonary abnormality 12/03/18 EKG: Sinus rhythm. Within normal limits. EKG 06/04/18: sinus rhythm. nonspecific ST depression-nondiagnost ic. AbnormalEKG 12/25/2017: NSR, NSST changesEK06/24/17 Sinus rhythm. Within normal limits 11/20/16 EKG: Sinus rhythm with frequent premature ventricular complexes. T-wave changes. When compared with ECG of 09-APR-2016, Premature ventricular complexes are now present. T wave inversion now evident in inferior leads. EK04/09/16 Normal sinus rhythm. Normal ECG. When compared with ECG of 17-FEB-2016 No significant change was found. US, carotid artery 01/19/2021 Antegrade flow noted in both vertebral arteries. Mild right, internal carotid artery stenosis with less than 50% diameter stenosis. Severe left internal carotid artery stenosis with more than 80% diameter stenosis. US, doppler, arterial 04-21-2020 NAS: Calcified non-compressible lower extremity arteries. 12/23/19 TDM- Positive stress test. Reversible defect consistent with ischemia in apical area. Normal LV systolic function. LVEF 66% 11/03/2019 : CT Abdomen +pevis WO IV Contrast: 1) No acute abnormality is identified with in the abdomen or pelvis 2) Punctate 2mm non obstructing US Arterial 01/13/19Arterial doppler 01/13/2019 Patent arterial tree of the left lower extremity. NAS may be unreliable secondary to vessel noncompressibility. Digital pressures suggest adequate wound healing potential 01/06/19 ECHO: LV chamber size is normal. There is borderline LV hypertrophy. There is normal global systolic function and contractility. The estimated left ventricle ejection fraction is 60-65%(normal). Normal left atrial pressure with grade I diastolic dysfunction. There is mild aortic valve sclerosis without significant stenosis. Mitral valve prolapse cannot be ruled out. There is restriction of the mitral valve posterior leaflet. There is a dense posterior mitral annular calcification. There is mild mitral regurgitation. There is trace tricuspid regurgitation. 01/01/18 ECHO: Study quality: technically difficult. LV chamber size is normal. LV wall thickness is normal. There is normal global systolic function and contractility. The estimated left ventricle ejection fraction is 55-60% (normal). Normal left atrial pressure with grade I diastolic dysfunction. RV size is mildly dilated. There is mild thickening of mitral valve anterior and posterior leaflets. There is a dense posterior mitral annular calcification. There is mild mitral regurgitation. There is mild tricuspid regurgitation. ECHO: 01/13/16 Overall left ventricular systolic function is normal with an EF between 60-65%. Abnormal relaxation filling pattern of the left ventricle for age (stage I diastolic dysfunction). There is mild annular calcification present. Mild mitral regurgitation is present. Right ventricular systolic pressure is normal at <35mmHg. NUC:01/13/16 Positive stress test. Reversible defect consistent with ischemia in Anterior area. Normal LV systolic function. Exercise tolerance is poor. LVEF 62%. 02/16/2016 CATH: severely calcified RCA s/p successful atherectomy and PCI/stenting (2.5 x 8 mm Resolute JAYSHREE mid, 2.25 x 8 mm Resolute JAYSHREE mid/distal, final diameter of prox/mid segment 2.9 mm). Stent Placement. 02/16/16 CT, abdomen + pelvis, w/ contrast No CT evidence of retroperitoneal hematoma , Fat stranding at the right groin with catheters . Focal distal esophageal wall thickening , nonspecific . follow up is recommended. Prominence of the proximal colon with gas/fluid levels , indeterminate , follow up is recommended as a sublte stricture is a possibility , no definitive obstruction . 11/20/16 CHEST PORTABLE: Stable appearance of the chest. No evidence of an acute cardiopulmonary abnormality. CT, abdomen + pelvis, w/ contrast 02-16-[address] evidence of retroperitoneal hematoma , Fat stranding at the right groin with catheters . Focal distal esophageal wall thickening , nonspecific . follow up is?eft heart catheterization 02-16-2016 Stent Placement XR, chest 11-03-2019 11/03/2019 : Chest X-Ray : No acute cardiopulmonary abnormality Stuart Murray MD [address] [place], [address], [facility] 08/09/2022 11:07:58 02/04/2023 text/html 02/04/23CC : [facility]72 year-[facility] white man, with h/o coronary artery disease s/p PCI x2 (02/16/16), hypertension, dyslipidemia, and PVD is here for 6 month follow up with arterial doppler results. He was last seen in the clinic on 08/09/22, since then he had Arterial doppler on 12/27/22 showed Calcified non-compressible lower extremity arteries.Denies shortness of breath at rest. Has mild dyspnea on exertion.No orthopnea. No PNDs.Denies heart palpitations.Denies dizziness. Denies syncope or near syncope.No ankle or leg edema.No major bleeding events.No reported side effects from medications. Taking medications as prescribed with no missed doses.Denies snoring, daytime somnolence and AM headache.*Last LDL was 70 done on 06/12/18 .Pt takes pravastatin 10 mg. *Had Arterial doppler on 12/27/22 showed Calcified non-compressible lower extremity arteries. *Had Carotid US on 02/27/22 showed Antegrade flow noted in both vertebral arteries. Mild bilateral internal carotid artery stenosis with less than 50% diameter stenosis, *Had ECHO done on 08/16/21 showed LV chamber size is normal,LV wall thickness is normal,the estimated LVEF is 55-60%,LV relaxation is impaired.there is mild aortic root calcification,mitral valve prolapse cannot be ruled out,there is a dense posterior mitral annular calcification,there is mild tricuspid regurgitation,estimate d RVSP systolic pressure is 32 mmHg. *Had positive stress test done in 12/23/19 with ischemia in apical area. Normal LV systolic function. LVEF 66% . He was in the hospital in 02/16/16 for and PCI/Stenting of RCA which done with excellent result. Results from this visit, or from the past: 04/18/2020:Glucose 97,BUN 32,ALT 12,Alkaline phosphatase 80,ALT 12Ca 9.7,CO2 13Mag 2.0,FT41.15Na 138,K 4.8Cl 110Vitamin D 53.8Uric Acid 3.1TSH 6.19 CBC: WBC 10.0,RBC 4.0,HGB 12.6,HCT 40,PLT 191 CMP, serum or plasma 11-03-2019 11/03/19:Na 140,K 5.0,Cl 112,CO2 10,GLU 117,BUN 54,Cr 3.7,AST 28,ALT 15 . panel, blood 12-10-2018 12/10/18: TC 158, TG 54, HDL 87 ,LDL 60, CBC w/ diff 11-03-2016 11/03/19: WBC 19.8,RBC 4.15,HGB 12.6,HCT 39.9,PLT 277. 12/10/18: NA 139 , K 4.6, CL 107 ,CO2 16, GLU 93, BUN 19, CR 1.8,12/10/18: TC 158, TG 54, HDL 87 ,LDL 60, 06/13/18: Na 138 ,K 4.6 ,CL 107 ,CO2 15, GLU 102 ,BUN 25 ,CR 1.5 ,CMP, serum or plasma 06-14-2018 06/13/18: Na 138 ,K 4.6 ,CL 107 ,CO2 15, GLU 102 ,BUN 25 ,CR 1.5 ,lipid panel, blood 06-13-2018 TR: 69, TC: 166, HDL: 82, LDL: : SOD 142, K 3.9, CL 113, CO2 18, GL 89, BUN 25, CR 1.59 TC 164, HDL 73, TR 51, LDL 80, AST 20, ALT 32 11/23/16: Na 141 ,K 3.3 ,CL 106 ,CO2 25 ,GLU 97 ,BUN 18 ,CR 1.803/ : TC 148. TG 106. LDL 62. HDL 65. AST 21. ALT 23 . 10/05/2020 ekg ; nON SPECIFIC st-t DEPRESSION INFEROLATERTAL LEADS EKG, 12/09/19: Sinus tachycardia, mu CT, angiogram, abdomen + pelvis, w/wo contrast 11-03-2019 11/03/2019 : CT Abdomen +pevis WO IV Contrast: 1) No acute abnormality is identified with in the abdomen or pelvis 2) Punctate 2mm non obstructing stone with? XR, chest 11-03-2019 11/03/2019 : Chest X-Ray : No acute cardiopulmonary abnormality 12/03/18 EKG: Sinus rhythm. Within normal limits. EKG 06/04/18: sinus rhythm. nonspecific ST depression-nondiagnost ic. AbnormalEKG 12/25/2017: NSR, NSST changesEK06/24/17 Sinus rhythm. Within normal limits 11/20/16 EKG: Sinus rhythm with frequent premature ventricular complexes. T-wave changes. When compared with ECG of 09-APR-2016, Premature ventricular complexes are now present. T wave inversion now evident in inferior leads. EK04/09/16 Normal sinus rhythm. Normal ECG. When compared with ECG of 17-FEB-2016 No significant change was found. US, carotid artery 01/19/2021 Antegrade flow noted in both vertebral arteries. Mild right, internal carotid artery stenosis with less than 50% diameter stenosis. Severe left internal carotid artery stenosis with more than 80% diameter stenosis. US, doppler, arterial 04-21-2020 NAS: Calcified non-compressible lower extremity arteries. 12/23/19 TDM- Positive stress test. Reversible defect consistent with ischemia in apical area. Normal LV systolic function. LVEF 66% 11/03/2019 : CT Abdomen +pevis WO IV Contrast: 1) No acute abnormality is identified with in the abdomen or pelvis 2) Punctate 2mm non obstructing US Arterial 01/13/19Arterial doppler 01/13/2019 Patent arterial tree of the left lower extremity. NAS may be unreliable secondary to vessel noncompressibility. Digital pressures suggest adequate wound healing potential 01/06/19 ECHO: LV chamber size is normal. There is borderline LV hypertrophy. There is normal global systolic function and contractility. The estimated left ventricle ejection fraction is 60-65%(normal). Normal left atrial pressure with grade I diastolic dysfunction. There is mild aortic valve sclerosis without significant stenosis. Mitral valve prolapse cannot be ruled out. There is restriction of the mitral valve posterior leaflet. There is a dense posterior mitral annular calcification. There is mild mitral regurgitation. There is trace tricuspid regurgitation. 01/01/18 ECHO: Study quality: technically difficult. LV chamber size is normal. LV wall thickness is normal. There is normal global systolic function and contractility. The estimated left ventricle ejection fraction is 55-60% (normal). Normal left atrial pressure with grade I diastolic dysfunction. RV size is mildly dilated. There is mild thickening of mitral valve anterior and posterior leaflets. There is a dense posterior mitral annular calcification. There is mild mitral regurgitation. There is mild tricuspid regurgitation. ECHO: 01/13/16 Overall left ventricular systolic function is normal with an EF between 60-65%. Abnormal relaxation filling pattern of the left ventricle for age (stage I diastolic dysfunction). There is mild annular calcification present. Mild mitral regurgitation is present. Right ventricular systolic pressure is normal at <35mmHg. NUC:01/13/16 Positive stress test. Reversible defect consistent with ischemia in Anterior area. Normal LV systolic function. Exercise tolerance is poor. LVEF 62%. 02/16/2016 CATH: severely calcified RCA s/p successful atherectomy and PCI/stenting (2.5 x 8 mm Resolute JAYSHREE mid, 2.25 x 8 mm Resolute JAYSHREE mid/distal, final diameter of prox/mid segment 2.9 mm). Stent Placement. 02/16/16 CT, abdomen + pelvis, w/ contrast No CT evidence of retroperitoneal hematoma , Fat stranding at the right groin with catheters . Focal distal esophageal wall thickening , nonspecific . follow up is recommended. Prominence of the proximal colon with gas/fluid levels , indeterminate , follow up is recommended as a sublte stricture is a possibility , no definitive obstruction . 11/20/16 CHEST PORTABLE: Stable appearance of the chest. No evidence of an acute cardiopulmonary abnormality. CT, abdomen + pelvis, w/ contrast 02-16-[address] evidence of retroperitoneal hematoma , Fat stranding at the right groin with catheters . Focal distal esophageal wall thickening , nonspecific . follow up is?eft heart catheterization 02-16-2016 Stent Placement XR, chest 11-03-2019 11/03/2019 : Chest X-Ray : No acute cardiopulmonary abnormality Stuart Murray MD [address] [place], [address], [facility] 02/04/2023 12:17:03 08/29/2023 text/html 08/29/23CC : Card iac follow up chest pain72 year-old white man, with h/o coronary artery disease s/p PCI x2 (02/16/16), hypertension, dyslipidemia, and PVD is here for 6 month follow up with arterial doppler results. He was last seen in the clinic on 08/09/22, since then he had Arterial doppler on 12/27/22 showed Calcified non-compressible lower extremity arteries. He denied chest pain or dyspnea on exertion. *Last LDL was 70 done on 06/12/18 .Pt takes pravastatin 10 mg. Denies shortness of breath at rest. Has mild dyspnea on exertion.No orthopnea. No PNDs.Denies heart palpitations.Denies dizziness. Denies syncope or near syncope.No ankle or leg edema.No major bleeding events.No reported side effects from medications. Taking medications as prescribed with no missed doses.Denies snoring, daytime somnolence and AM headache.*Last LDL was 70 done on 06/12/18 .Pt takes pravastatin 10 mg. *Had Arterial doppler on 12/27/22 showed Calcified non-compressible lower extremity arteries. *Had Carotid US on 02/27/22 showed Antegrade flow noted in both vertebral arteries. Mild bilateral internal carotid artery stenosis with less than 50% diameter stenosis, *Had ECHO done on 08/16/21 showed LV chamber size is normal,LV wall thickness is normal,the estimated LVEF is 55-60%,LV relaxation is impaired.there is mild aortic root calcification,mitral valve prolapse cannot be ruled out,there is a dense posterior mitral annular calcification,there is mild tricuspid regurgitation,estimate d RVSP systolic pressure is 32 mmHg. *Had positive stress test done in 12/23/19 with ischemia in apical area. Normal LV systolic function. LVEF 66% . He was in the hospital in 02/16/16 for and PCI/Stenting of RCA which done with excellent result. Results from this visit, or from the past: 04/18/2020:Glucose 97,BUN 32,ALT 12,Alkaline phosphatase 80,ALT 12Ca 9.7,CO2 13Mag 2.0,FT41.15Na 138,K 4.8Cl 110Vitamin D 53.8Uric Acid 3.1TSH 6.19 CBC: WBC 10.0,RBC 4.0,HGB 12.6,HCT 40,PLT 191 CMP, serum or plasma 11-03-2019 11/03/19:Na 140,K 5.0,Cl 112,CO2 10,GLU 117,BUN 54,Cr 3.7,AST 28,ALT 15 . panel, blood 12-10-2018 12/10/18: TC 158, TG 54, HDL 87 ,LDL 60, CBC w/ diff 11-03-2016 11/03/19: WBC 19.8,RBC 4.15,HGB 12.6,HCT 39.9,PLT 277. 12/10/18: NA 139 , K 4.6, CL 107 ,CO2 16, GLU 93, BUN 19, CR 1.8,12/10/18: TC 158, TG 54, HDL 87 ,LDL 60, 06/13/18: Na 138 ,K 4.6 ,CL 107 ,CO2 15, GLU 102 ,BUN 25 ,CR 1.5 ,CMP, serum or plasma 06-14-2018 06/13/18: Na 138 ,K 4.6 ,CL 107 ,CO2 15, GLU 102 ,BUN 25 ,CR 1.5 ,lipid panel, blood 06-13-2018 TR: 69, TC: 166, HDL: 82, LDL: : SOD 142, K 3.9, CL 113, CO2 18, GL 89, BUN 25, CR 1.59 TC 164, HDL 73, TR 51, LDL 80, AST 20, ALT 32 11/23/16: Na 141 ,K 3.3 ,CL 106 ,CO2 25 ,GLU 97 ,BUN 18 ,CR 1.803 : TC 148. TG 106. LDL 62. HDL 65. AST 21. ALT 23 . 10/05/2020 ekg ; nON SPECIFIC st-t DEPRESSION INFEROLATERTAL LEADS EKG, 12/09/19: Sinus tachycardia, mu CT, angiogram, abdomen + pelvis, w/wo contrast 11-03-2019 11/03/2019 : CT Abdomen +pevis WO IV Contrast: 1) No acute abnormality is identified with in the abdomen or pelvis 2) Punctate 2mm non obstructing stone with? XR, chest 11-03-2019 11/03/2019 : Chest X-Ray : No acute cardiopulmonary abnormality 12/03/18 EKG: Sinus rhythm. Within normal limits. EKG 06/04/18: sinus rhythm. nonspecific ST depression-nondiagnost ic. AbnormalEKG 12/25/2017: NSR, NSST changesEK06/24/17 Sinus rhythm. Within normal limits 11/20/16 EKG: Sinus rhythm with frequent premature ventricular complexes. T-wave changes. When compared with ECG of 09-APR-2016, Premature ventricular complexes are now present. T wave inversion now evident in inferior leads. EK04/09/16 Normal sinus rhythm. Normal ECG. When compared with ECG of 17-FEB-2016 No significant change was found. US, carotid artery 01/19/2021 Antegrade flow noted in both vertebral arteries. Mild right, internal carotid artery stenosis with less than 50% diameter stenosis. Severe left internal carotid artery stenosis with more than 80% diameter stenosis. US, doppler, arterial 04-21-2020 NAS: Calcified non-compressible lower extremity arteries. 12/23/19 TDM- Positive stress test. Reversible defect consistent with ischemia in apical area. Normal LV systolic function. LVEF 66% 11/03/2019 : CT Abdomen +pevis WO IV Contrast: 1) No acute abnormality is identified with in the abdomen or pelvis 2) Punctate 2mm non obstructing US Arterial 01/13/19Arterial doppler 01/13/2019 Patent arterial tree of the left lower extremity. NAS may be unreliable secondary to vessel noncompressibility. Digital pressures suggest adequate wound healing potential 01/06/19 ECHO: LV chamber size is normal. There is borderline LV hypertrophy. There is normal global systolic function and contractility. The estimated left ventricle ejection fraction is 60-65%(normal). Normal left atrial pressure with grade I diastolic dysfunction. There is mild aortic valve sclerosis without significant stenosis. Mitral valve prolapse cannot be ruled out. There is restriction of the mitral valve posterior leaflet. There is a dense posterior mitral annular calcification. There is mild mitral regurgitation. There is trace tricuspid regurgitation. 01/01/18 ECHO: Study quality: technically difficult. LV chamber size is normal. LV wall thickness is normal. There is normal global systolic function and contractility. The estimated left ventricle ejection fraction is 55-60% (normal). Normal left atrial pressure with grade I diastolic dysfunction. RV size is mildly dilated. There is mild thickening of mitral valve anterior and posterior leaflets. There is a dense posterior mitral annular calcification. There is mild mitral regurgitation. There is mild tricuspid regurgitation. ECHO: 01/13/16 Overall left ventricular systolic function is normal with an EF between 60-65%. Abnormal relaxation filling pattern of the left ventricle for age (stage I diastolic dysfunction). There is mild annular calcification present. Mild mitral regurgitation is present. Right ventricular systolic pressure is normal at <35mmHg. NUC:01/13/16 Positive stress test. Reversible defect consistent with ischemia in Anterior area. Normal LV systolic function. Exercise tolerance is poor. LVEF 62%. 02/16/2016 CATH: severely calcified RCA s/p successful atherectomy and PCI/stenting (2.5 x 8 mm Resolute JAYSHREE mid, 2.25 x 8 mm Resolute JAYSHREE mid/distal, final diameter of prox/mid segment 2.9 mm). Stent Placement. 02/16/16 CT, abdomen + pelvis, w/ contrast No CT evidence of retroperitoneal hematoma , Fat stranding at the right groin with catheters . Focal distal esophageal wall thickening , nonspecific . follow up is recommended. Prominence of the proximal colon with gas/fluid levels , indeterminate , follow up is recommended as a sublte stricture is a possibility , no definitive obstruction . 11/20/16 CHEST PORTABLE: Stable appearance of the chest. No evidence of an acute cardiopulmonary abnormality. CT, abdomen + pelvis, w/ contrast 02-16-[address] evidence of retroperitoneal hematoma , Fat stranding at the right groin with catheters . Focal distal esophageal wall thickening , nonspecific . follow up is?eft heart catheterization 02-16-2016 Stent Placement XR, chest 11-03-2019 11/03/2019 : Chest X-Ray : No acute cardiopulmonary abnormality [facility] 08/29/2023 16:37:32 12/19/2023 text/html 12/19/23CC : Car diac follow up dyspnea on [id number] year-old white man, with h/o coronary artery disease s/p PCI x2 (02/16/16), hypertension, dyslipidemia, and PVD is here for 6 month follow up with ECHO with stress test results. He was last seen in the clinic on 08/29/23, since then he is doing well. He denied chest pain or dyspnea on exertion. Negative stress. ECHO with normal EF. *Last LDL was 70 done on 06/12/18.Pt takes pravastatin 10 mg. He denies ER visits and hospitalizations since he was last seen. Today reports: cc : pt states no concerns at this timeDenies chest pain.Denies shortness of breath at rest. Has mild dyspnea on exertion.No orthopnea. No PNDs.Denies heart palpitations.Denies dizziness. Denies syncope or near syncope.No ankle or leg edema.No major bleeding events.No reported side effects from medications. Taking medications as prescribed with no missed doses.Denies snoring, daytime somnolence and AM headache.*Last LDL was 70 done on 06/12/18.Pt takes pravastatin 10 mg. *Had Negative Lexiscan stress test showed on 09/17/23 Normal LV systolic function. LVEF: 48%. *Had ECHO done on 09/12/23 showed LV chamber size is normal,LV relaxation is impaired, the aortic valve is mildly calcified, there is mild aortic root calcification, there is a dense posterior mitral annular calcification. Previously:He had Arterial doppler on 12/27/22 showed Calcified non-compressible lower extremity arteries. He denied chest pain or dyspnea on exertion. *Had Arterial doppler on 12/27/22 showed Calcified non-compressible lower extremity arteries. *Had Carotid US on 02/27/22 showed Antegrade flow noted in both vertebral arteries. Mild bilateral internal carotid artery stenosis with less than 50% diameter stenosis, He was in the hospital in 02/16/16 for and PCI/Stenting of RCA which done with excellent result. Results from this visit, or from the past: 04/18/2020:Glucose 97,BUN 32,ALT 12,Alkaline phosphatase 80,ALT 12Ca 9.7,CO2 13Mag 2.0,FT41.15Na 138,K 4.8Cl 110Vitamin D 53.8Uric Acid 3.1TSH 6.19 CBC: WBC 10.0,RBC 4.0,HGB 12.6,HCT 40,PLT 191 CMP, serum or plasma 11-03-2019 11/03/19:Na 140,K 5.0,Cl 112,CO2 10,GLU 117,BUN 54,Cr 3.7,AST 28,ALT 15 . panel, blood 12-10-2018 12/10/18: TC 158, TG 54, HDL 87 ,LDL 60, CBC w/ diff 11-03-2016 11/03/19: WBC 19.8,RBC 4.15,HGB 12.6,HCT 39.9,PLT 277. 12/10/18: NA 139 , K 4.6, CL 107 ,CO2 16, GLU 93, BUN 19, CR 1.8,12/10/18: TC 158, TG 54, HDL 87 ,LDL 60, 06/13/18: Na 138 ,K 4.6 ,CL 107 ,CO2 15, GLU 102 ,BUN 25 ,CR 1.5 ,CMP, serum or plasma 06-14-2018 06/13/18: Na 138 ,K 4.6 ,CL 107 ,CO2 15, GLU 102 ,BUN 25 ,CR 1.5 ,lipid panel, blood 06-13-2018 TR: 69, TC: 166, HDL: 82, LDL: : SOD 142, K 3.9, CL 113, CO2 18, GL 89, BUN 25, CR 1.59 TC 164, HDL 73, TR 51, LDL 80, AST 20, ALT 32 11/23/16: Na 141 ,K 3.3 ,CL 106 ,CO2 25 ,GLU 97 ,BUN 18 ,CR 1.803 : TC 148. TG 106. LDL 62. HDL 65. AST 21. ALT 23 . 10/05/2020 ekg ; nON SPECIFIC st-t DEPRESSION INFEROLATERTAL LEADS EKG, 12/09/19: Sinus tachycardia, mu CT, angiogram, abdomen + pelvis, w/wo contrast 11-03-2019 11/03/2019 : CT Abdomen +pevis WO IV Contrast: 1) No acute abnormality is identified with in the abdomen or pelvis 2) Punctate 2mm non obstructing stone with? XR, chest 11-03-2019 11/03/2019 : Chest X-Ray : No acute cardiopulmonary abnormality 12/03/18 EKG: Sinus rhythm. Within normal limits. EKG 06/04/18: sinus rhythm. nonspecific ST depression-nondiagnost ic. AbnormalEKG 12/25/2017: NSR, NSST changesEK06/24/17 Sinus rhythm. Within normal limits 11/20/16 EKG: Sinus rhythm with frequent premature ventricular complexes. T-wave changes. When compared with ECG of 09-APR-2016, Premature ventricular complexes are now present. T wave inversion now evident in inferior leads. EK04/09/16 Normal sinus rhythm. Normal ECG. When compared with ECG of 17-FEB-2016 No significant change was found. US, carotid artery 01/19/2021 Antegrade flow noted in both vertebral arteries. Mild right, internal carotid artery stenosis with less than 50% diameter stenosis. Severe left internal carotid artery stenosis with more than 80% diameter stenosis. US, doppler, arterial 04-21-2020 NAS: Calcified non-compressible lower extremity arteries. 12/23/19 TDM- Positive stress test. Reversible defect consistent with ischemia in apical area. Normal LV systolic function. LVEF 66% 11/03/2019 : CT Abdomen +pevis WO IV Contrast: 1) No acute abnormality is identified with in the abdomen or pelvis 2) Punctate 2mm non obstructing US Arterial 01/13/19Arterial doppler 01/13/2019 Patent arterial tree of the left lower extremity. NAS may be unreliable secondary to vessel noncompressibility. Digital pressures suggest adequate wound healing potential 01/06/19 ECHO: LV chamber size is normal. There is borderline LV hypertrophy. There is normal global systolic function and contractility. The estimated left ventricle ejection fraction is 60-65%(normal). Normal left atrial pressure with grade I diastolic dysfunction. There is mild aortic valve sclerosis without significant stenosis. Mitral valve prolapse cannot be ruled out. There is restriction of the mitral valve posterior leaflet. There is a dense posterior mitral annular calcification. There is mild mitral regurgitation. There is trace tricuspid regurgitation. 01/01/18 ECHO: Study quality: technically difficult. LV chamber size is normal. LV wall thickness is normal. There is normal global systolic function and contractility. The estimated left ventricle ejection fraction is 55-60% (normal). Normal left atrial pressure with grade I diastolic dysfunction. RV size is mildly dilated. There is mild thickening of mitral valve anterior and posterior leaflets. There is a dense posterior mitral annular calcification. There is mild mitral regurgitation. There is mild tricuspid regurgitation. ECHO: 01/13/16 Overall left ventricular systolic function is normal with an EF between 60-65%. Abnormal relaxation filling pattern of the left ventricle for age (stage I diastolic dysfunction). There is mild annular calcification present. Mild mitral regurgitation is present. Right ventricular systolic pressure is normal at <35mmHg. NUC:01/13/16 Positive stress test. Reversible defect consistent with ischemia in Anterior area. Normal LV systolic function. Exercise tolerance is poor. LVEF 62%. 02/16/2016 CATH: severely calcified RCA s/p successful atherectomy and PCI/stenting (2.5 x 8 mm Resolute JAYSHREE mid, 2.25 x 8 mm Resolute JAYSHREE mid/distal, final diameter of prox/mid segment 2.9 mm). Stent Placement. 02/16/16 CT, abdomen + pelvis, w/ contrast No CT evidence of retroperitoneal hematoma , Fat stranding at the right groin with catheters . Focal distal esophageal wall thickening , nonspecific . follow up is recommended. Prominence of the proximal colon with gas/fluid levels , indeterminate , follow up is recommended as a sublte stricture is a possibility , no definitive obstruction . 11/20/16 CHEST PORTABLE: Stable appearance of the chest. No evidence of an acute cardiopulmonary abnormality. CT, abdomen + pelvis, w/ contrast 02-16-[address] evidence of retroperitoneal hematoma , Fat stranding at the right groin with catheters . Focal distal esophageal wall thickening , nonspecific . follow up is?eft heart catheterization 02-16-2016 Stent Placement XR, chest 11-03-2019 11/03/2019 : Chest X-Ray : No acute cardiopulmonary abnormality [facility] 12/19/2023 15:52:02
--- OUTSIDE RECORDS SUMMARY | 2024-10-27 10:52 | XMS_ITS | Encounter Summary ---
Author Organization [facility] Healthcare Address [address] [place] [address] Care Team Providers Care Lead Software Tester Name Role Phone Nickie Negron MD Primary Care Provider [phone]- [phone] Reason for Referral * Procedure (Routine) - Authorized Specialty Diagnoses / Procedures Referred By Contac t Referred To Contact Diagnoses Arthritis of glenohumeral joint Procedures Large Joint (Hip, Knee, Shoulder) Injection: L glenohumeral Gayle Lawson PA [address] [place] [phone] Phone: tel: fax: [facility] Medical Group Referral ID Status Reason Start Date Expiration Date V isits Requested Visits Authorized [id number] Authorized 07/27/2024 08/26/2025 1 1 * Procedure (Routine) - Authorized Specialty Diagnoses / Procedures Referred By Contac t Referred To Contact Diagnoses Arthritis of glenohumeral joint Procedures Large Joint (Hip, Knee, Shoulder) Injection: L knee Gayle Lawson PA [address] [facility] [address] [address] [place] [address] [place] [phone] Phone: tel: fax: [facility] Referral ID Status Reason Start Date Expiration Date V isits Requested Visits Authorized [id number] Authorized 07/22/2024 08/21/2025 1 1 * Procedure (Routine) - Authorized Specialty Diagnoses / Procedures Referred By Roula mcmillan Referred To Contact Diagnoses Arthritis of glenohumeral joint Procedures Large Joint (Hip, Knee, Shoulder) Injection: R knee [facility] [address] [place] [address] Phone: tel: fax: [facility] Referral ID Status Reason Start Date Expiration Date V isits Requested Visits Authorized [id number] Authorized 07/22/2024 08/21/2025 1 1 Reason for Visit * Reason Comments Injections Pain Injections Pain Encounter Details Date Type Department Care Team (Late st Contact Info) Description 07/22/2024 9:45 AM CDT Office Visit [facility] Orthopedics and Sports Medicine [address] [place] [phone] Gayle Lawson PA [address] [place] [address] [address] [place] [phone] Arthritis of glenohumeral joint (Primary Dx) Social History Tobacco Use Types [...] on file 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 Gender Identity Not on file Sexual Orientation Not on file documented as of this encounter Last Filed Vital Signs Vital Sign Reading Time Taken Comments Blood Pressure - - Pulse - - Temperature - - Respiratory Rate - - Oxygen Saturation - - Inhaled Oxygen Concentration - - Weight 68.9 kg (152 lb) 07/22/2024 9:48 AM CDT Height 157.5 cm (5' 2 ) 07/22/2024 9:48 AM CDT Body Mass Index 27.8 07/22/2024 9:48 AM CDT documented in this encounter Progress Notes * Gayle Lawson PA - 07/22/2024 9:45 AM CDTAssociated Order(s): Large Joint (Hip, Knee, Shoulder) Injection: R knee; Large Joint (Hip, Knee, Sh oulder) Injection: L knee; Large Joint (Hip, Knee, Shoulder) Injection: L glenohumeral Post-Procedure Diagnose(s): Arthritis of glenohumeral joint Images from the original note were not included. FOLLOW UP VISIT CHIEF COMPLAINT No chief complaint on file. HISTORY OF PRESENT ILLNESS Julius Andrade is a pleasant 73 y.o. male who presents to clinic for follow up of his bilateral glenohumeral osteoarthritis. The patient was last seen on 04/17/2024, at which time He received an intraarticular injection on the left, which provided excellent relief until last week. The injection he received for his right shoulder in December has worn off within the past month. The patient presentstoday for a repeat injection and denies any other complaints at this time. REVIEW OF SYSTEMS Review of Systems Constitutional: Positive for activity change. Musculoskeletal: Positive for arthralgias and myalgias. Negative for joint swelling. PHYSICAL EXAMINATION There were no vitals taken for this visit. Left shoulder Inspection Erythema: absent Edema: absent Effusion: absent Swelling: absent Skin temperature: normal Atrophy: absent AC joint deformity: absent Scapular winging: absent Abrasion: absent Surgical scar/wound is absent. Scapulothoracic motion: normal Palpation Tenderness is present. The patient has tenderness in the anterior shoulder and posterior shoulder area(s). Range of motion The patient has normal range of motion of the left shoulder with exceptions . The patient has pain with range of motion of the left shoulder. Stability The patient has normal stability of the left shoulder. Strength The patient has 5/5 strength throughout. Neurovascular The patient has normal vascular on the left side of their body. The patient has normal sensation on the left side of their body. Tests Apprehension: negative Belly press: negative Cross am: negative Hawkin's test: postive Impingement signs: positive Lift-off: negative Neer's: positive Speed's: negative Spurling's: negative Large Joint (Hip, Knee, Shoulder) Injection: [...] Large Joint (Hip, Knee, Shoulder) Injection: L glenohumeral Performed by: Gayle Lawson PA Authorized by: Gayle Lawson PA Large Joint Injection/Aspiration: Consent Given by: Patient Site marked: the procedure site was marked Timeout: prior to procedure the correct patient, procedure, and site was verified Verbal consent obtained: Yes Supporting Documentation: Indications: Pain Procedure Details: Location: Shoulder Site: L glenohumeral Prep: patient was prepped using a clean technique Needle Size: 22 G Approach: Posterior Medications: 1 mL lidocaine 20 mg/mL (2 %); 40 mg triamcinolone 40 mg/mL Patient tolerance: Patient tolerated the procedure well with no immediate complications REVIEW OF X-RAYS/STUDIES DIAGNOSIS Diagnoses and all orders for this visit: Arthritis of glenohumeral joint (Primary) PLAN I provided Mr. Andrade with an intraarticular steroid injection into the left glenohumeral joint under sterile conditions today, which He tolerated well. We discussed the continuation of activity modification and use of antiinflammatories and/or Tylenol. He is to return to clinic in three months for reevaluation and possible repeat injection shall symptoms warrant it at that time. If his right shoulder starts to cause him pain, he may call our office to get this injection scheduled. The patientmay contact the office with any further questions or concerns. Addendum 07/27/24: Knee injections were not completed at this visit. Entered in error. KIRSTIE Salas documented in this encounter Plan of Treatment Not on file documented as of this encounter Procedures Procedure Name Priority Date/Time Associated Diagnosis Comments MA ARTHROCENTESIS ASPIR&/INJ MAJOR JT/BURSA W/O US Routine 07/22/2024 9:45 AM CDT Arthritis of glenohumeral joint MA ARTHROCENTESIS ASPIR&/INJ MAJOR JT/BURSA W/O US Routine 07/22/2024 9:45 AM CDT Arthritis of glenohumeral joint MA ARTHROCENTESIS ASPIR&/INJ MAJOR JT/BURSA W/O US Routine 07/22/2024 9:45 AM CDT Arthritis of glenohumeral joint documented in this encounter Results * MA ARTHROCENTESIS ASPIR&/INJ MAJOR JT/BURSA W/O US (07/22/2024 9:45 AM CDT) Narrative Gayle Lawson PA - 07/22/2024 9:45 AM CDT Gayle Lawson PA ? 07/27/2024 ??8:48 AM Large Joint (Hip, Knee, Shoulder) Injection: L glenohumeral Performed by: Gayle Lawson PA Authorized by: Gayle Lawson PA ?? Large Joint Injection/Aspiration: ??Consent Given by: ??Patient ??Site marked: the procedure site was marked ?Timeout: prior to procedure the correct patient, procedure, and site was verified ?Verbal consent obtained: Yes ?? Supporting Documentation: ??Indications: ??Pain Procedure Details: ??Location: ??Shoulder ??Site: ??L glenohumeral ??Prep: patient was prepped using a clean technique ?Needle Size: ??22 G ??Approach: ??Posterior ??Medications: ??1 mL lidocaine 20 mg/mL (2 %); 40 mg triamcinolone 40 mg/mL ??Patient tolerance: ??Patient tolerated the procedure well with no immediate complications Gayle THACKER IN CLINIC/BEDSIDE ORDERAB LES Final Result * MA ARTHROCENTESIS ASPIR&/INJ MAJOR JT/BURSA W/O US (07/22/2024 9:45 AM CDT) Narrative Gayle Lawson PA - 07/22/2024 9:45 AM CDT Gayle Lawson PA ? 07/27/2024 ??8:48 AM Large Joint (Hip, Knee, Shoulder) Injection: [...] complications Gayle THACKER IN CLINIC/BEDSIDE ORDERAB LES Edited Result - Final * MA ARTHROCENTESIS ASPIR&/INJ MAJOR JT/BURSA W/O US (07/22/2024 9:45 AM CDT) Narrative Gayle Lawson PA - 07/22/2024 9:45 AM CDT Gayle Lawson PA ? 07/27/2024 ??8:48 AM Large Joint (Hip, Knee, Shoulder) Injection: [...] procedure well with no immediate complications Gayle Lawson PA IN CLINIC/BEDSIDE ORDERAB LES Edited Result - Final documented in this encounter Visit Diagnoses Diagnosis Arthritis of glenohumeral joint- Primary documented in this encounter Administered Medications Inactive Administered Medications - up to 3 most recent administrations Medication Order MAR Action Action Date Dose Rate Site lidocaine (XYLOCAINE) 20 mg/mL (2 %) injection 1 mL 1 mL, other, One-Time Injection, Starting on Sat07/22/24 at 0945, For 1 dose, Indications: Administration of Local AnesthesiaIndications:Adminis tration of Local Anesthesia Given 07/22/2024 9:45 AM CDT 1 mL Right Knee lidocaine (XYLOCAINE) 20 mg/mL (2 %) injection 1 mL 1 mL, other, One-Time Injection, Starting on Sat07/22/24 at 0945, For 1 dose, Indications: Administration of Local AnesthesiaIndications:Adminis tration of Local Anesthesia Given 07/22/2024 9:45 AM CDT 1 mL Left Knee lidocaine (XYLOCAINE) 20 mg/mL (2 %) injection 1 mL 1 mL, other, One-Time Injection, Starting on Sat07/22/24 at 0945, For 1 dose, Indications: Administration of Local AnesthesiaIndications:Adminis tration of Local Anesthesia Given 07/22/2024 9:45 AM CDT 1 mL Left Shoulder triamcinolone (KENALOG) 40 mg/mL injection 40 mg 40 mg, intra-articular, One-Time Injection, Starting on Sat07/22/24 at 0945, For 1 doseIndications:Arthritis of glenohumeral joint Given 07/22/2024 9:45 AM CDT 40 mg Right Knee triamcinolone (KENALOG) 40 mg/mL injection 40 mg 40 mg, intra-articular, One-Time Injection, Starting on Sat07/22/24 at 0945, For 1 doseIndications:Arthritis of glenohumeral joint Given 07/22/2024 9:45 AM CDT 40 mg Left Knee triamcinolone (KENALOG) 40 mg/mL injection 40 mg 40 mg, intra-articular, One-Time Injection, Starting on Sat07/22/24 at 0945, For 1 doseIndications:Arthritis of glenohumeral joint Given 07/22/2024 9:45 AM CDT 40 mg Left Shoulder documented in this encounter Care Teams Lead Software Tester Relationship Specialty Start Date End Date Nickie Negron MD [address] [address] PCP - General 01/13/19 documented as of this encounter
--- OUTSIDE RECORDS SUMMARY | 2024-10-27 10:52 | XMS_ITS | Encounter Summary ---
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 Repeated falls Gera Perrin MD [address] [facility] [address] [address] Phone: tel: fax: Referral ID Status Reason Start Date Expiration Date V isits Requested Visits Authorized [id number] Denied Specialty Services Required 07/06/2024 07/06/2024 1 0 Question Answer [facility] Primary disciplines requested: Physical Therapy Home Health Services Therapy to Eval/Tx Therapy instructions: Evaluation/treatment Requested Start of Care Date: 24-48 hours Physician to follow patient's care (the person listed here will be responsible for signing ongoing orders): Referring Provider I attest that I or another qualified licensed provider saw the patient 90 days prior to or 30 days post admission and this face to face encounter meets the necessary Home Health requirements. The face to face encounter occurred on (date): 06/18/2024 The encounter with the patient was in whole, or in part, for the following medical condition, which is the primary reason for home health care. (List medical condition): abnormal gait, impaired balance due to posture I certify that, based on my findings, the following services are medically necessary skilled home health services: Therapy to Eval/Tx Clinical findings that support the need for home care: Frequent falls requiring safety eval/therapy I certify that my clinical findings support patient's homebound status. Homebound criteria met because: Requires assistance of another to leave home safely, Abnormal gait/unsteady balance resulting in fall risk Reason for Visit * Reason Onset Date Comments referral to home health denied 07/06/2024 Encounter Details Date Type Department Care Team (Late st Contact Info) Description 07/06/2024 Telephone [facility] Neurology [address] [facility] [address] [place] [phone] Gera Perrin MD [address] [place] [phone] referral to home health denied Social History Tobacco Use Types Packs/Day [...] on file 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
--- OUTSIDE RECORDS SUMMARY | 2024-10-27 10:52 | XMS_ITS | Encounter Summary ---
Author Organization [facility] Healthcare Address [address] [place] [address] Care Team Providers Care Swatch Cutter Name Role Phone Nickie Negron MD Primary Care Provider [phone]- [phone] Reason for Visit * Reason Onset Date Comments home health referral denied 06/30/2024 Encounter Details Date Type Department Care Team (Late st Contact Info) Description 06/30/2024 Telephone [facility] Neurology [facility] [address] [phone] Gera Perrin MD [address] [place] [phone] home health referral denied Social History Tobacco Use Types Packs/Day [...] on file 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
--- OUTSIDE RECORDS SUMMARY | 2024-10-27 10:52 | XMS_ITS | Referral Summary ---
Author Organization [facility] Address [address] [place] [address] Care Team Providers Care Psychological Assistant Name Role Phone Nickie Negron MD Primary Care Provider [phone]- [phone] Encounters Date Type Department Care Team Description 08/12/2024 2:00 PM CDT Office Visit [facility]oped[facility] and Sports Medicine [address] [place] [address] Gayle Lawson PA Primary osteoarthritis of both knees (Primary Dx) 07/28/2024 7:18 AM CDT - 07/28/2024 10:[address] 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 Fall involving ice skates 05/05/2020 Family [...] artery disease 02/27/2016 Crohn's disease without complication ([facility]) 0 02/27/2016 Ex-smoker 02/27/2016 Hyperlipidemia 02/27/2016 Assessment [...] Osteoarthritis 02/27/2016 Osteoporosis 02/27/2016 Peripheral vascular disease ([facility]) 02/27/2016 Assessment & Plan (03/04/2023 10:12 PM [...] kidney disease, stage III (moderate) Abdominal pain Immunizations Name Administration Dates Next Due Influenza [...] 05/29/2024 ZOSTER LIVE 09/06/2014,09/06/2014 ZOSTER Recombinant 08/23/2018,06/23/2018 Social History Tobacco Use Types Packs/Day Years [...] on file Legal Sex Male 5:49 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 Gender Identity Not on file Sexual Orientation [...] 07/22/2024 9:48 AM CDT Plan of Treatment Not on file Procedures Procedure Name Priority Date/Time Associated Diagnosis Comments AL ARTHROCENTESIS ASPIR&/INJ MAJOR JT/BURSA W/O US Routine 08/12/2024 2:00 PM CDT Primary osteoarthritis of both knees AL ARTHROCENTESIS ASPIR&/INJ MAJOR JT/BURSA W/O US Routine [...] ABDOMEN PELVIS WO CONTRAST 11/03/2019 10:56 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 HEPATITIS PANEL, ACUTE Routine 5 4:03 PM CDT from Last 3 Months or Most Recently Relevant to Health Maintenance Results * AL ARTHROCENTESIS ASPIR&/INJ MAJOR JT/BURSA W/O US (08/12/2024 2:00 PM CDT) Narrative Gayle Lawson PA - 08/12/2024 2:00 PM CDT Gayle [...] the procedure well with no immediate complications us Gayle THACKER IN CLINIC/BEDSIDE ORDERAB LES Final Result * AL ARTHROCENTESIS ASPIR&/INJ MAJOR JT/BURSA W/O US (08/12/2024 2:00 PM CDT) Narrative Gayle Lawson PA - 08/12/2024 2:00 PM CDT Gayle [...] procedure well with no immediate complications Gayle HTACKER IN CLINIC/BEDSIDE ORDERAB LES Final Result * (ABNORMAL) Troponin T high-sensitivity 2-hour (07/28/2024 9:25 AM CDT) Trop T hs 28(H) <=22 ng/L Comment: Interpretive Data For further hscTnT resources including the diagnostic algorithm and an aid in interpretation, copy and paste this link: https://nrl.testcatalog.org/show/hsTrop Current Interpretive Data last revised 2020. Testing performed by: [address] [address] Trop T hs delta -1 ng/L GENARO TOVAR Comment:Testing performed by : [address] [address] Trop T hs interp Insignificant CERNER MH Comment:Testing performed by : [facility], [address] [place] [address], [place]., [address] Blood 07/28/2024 9:25 AM CDT 07/28/2024 9:33 AM CDT us Rehab Dominik TY LAB BLOOD ORDERABLES Final Resu lt GENARO [address] Department [place] [address] * XR Chest 1 Vw Portable (if [...] AM T: ??07/28/2024 7:54 AM Report ID: [id number] Reading Location: ??[id number] Procedure Note Alesha Olguin MD - 07/28/2024 [...] Kishore Olguin M.D. LC: SAMMY Report ID: [id number] Reading Location: [place] [address] Rehab Dominik TY IMG XR PROCEDURES Final Result * (ABNORMAL) Troponin T high-sensitivity series (baseline, 2hr, 4hr, 6hr) (07/28/2024 7:15 AM CDT) Trop T hs 29(H) <=22 ng/L Comment: Interpretive Data For further hscTnT resources including the diagnostic algorithm and an aid in interpretation, copy and paste this link: https://nrl.testcatalog.org/show/hsTrop Current Interpretive Data last revised 2020. Testing performed by: [facility], [address] [place] [address]., [address] Blood 07/28/2024 7:15 AM CDT 07/28/2024 7:34 AM CDT Rehab Dominik TY LAB BLOOD ORDERABLES [facility] [address] Department [place] [address] * (ABNORMAL) eGFR (07/28/2024 7:15 [...] was last reviewed 2021. Testing performed by: [address] [address] Blood 07/28/2024 7:15 AM CDT 07/28/2024 7:34 AM CDT us Rehab Dominik TY LAB BLOOD ORDERABLES Final Resu lt GENARO TOVAR [address] Department [place] [address] * (ABNORMAL) Differential, auto (07/28/2024 7:15 AM CDT) Neutrophil abs 6.9(H) 1.5 - 6.5 K/cumm Comment:Testing performed by : [address] [address] Imm gran abs 0.4(H) 0.0 - 0.1 K/cumm GENARO TOVAR Comment:Testing performed by : [address] [address] Lymphocyte abs 2.0 0.8 - 3.3 K/cumm [facility] Comment:Testing performed by : [facility], [address] [place] [address]., [address] Monocyte abs 1.1(H) 0.2 - 0.8 K/cumm [facility] Comment:Testing performed by : [address], [place]., [address] Eosinophil abs 0.2 0.0 - 0.5 K/cumm [facility] Comment:Testing performed by : [address], [place]., [address] Basophil abs 0.1 0.0 - 0.1 K/cumm [facility] Comment:Testing performed by : [address] [address] Neutrophil pct 65.5 % [facility] Comment: Interpretive Data Percent cell count reference ranges are not reported, since discordance with absolute values may lead to misinterpretation of CBC data. Current Interpretive Data was last revised on 2018. Testing performed by: [address] [address] Imm gran pct 3.8 % [facility] Comment: Interpretive Data Percent cell count reference ranges are not reported, since discordance with absolute values may lead to misinterpretation of CBC data. Current Interpretive Data was last revised on 2018. Testing performed by: [address] [address] Lymphocyte pct 18.7 % [facility] Comment: Interpretive Data Percent cell count reference ranges are not reported, since discordance with absolute values may lead to misinterpretation of CBC data. Current Interpretive Data was last revised on 2018. Testing performed by: [address] [address] Monocyte pct 9.9 % [facility] Comment: Interpretive Data Percent cell count reference ranges are not reported, since discordance with absolute values may lead to misinterpretation of CBC data. Current Interpretive Data was last revised on 2018. Testing performed by: [address] [address] Eosinophil pct 1.4 % [facility] Comment: Interpretive Data Percent cell count reference ranges are not reported, since discordance with absolute values may lead to misinterpretation of CBC data. Current Interpretive Data was last revised on 2018. Testing performed by: [address] [address] Basophil pct 0.7 % GENARO TOVAR Comment: Interpretive Data Percent cell count reference ranges are not reported, since discordance with absolute values may lead to misinterpretation of CBC data. Current Interpretive Data was last revised on 2018. Testing performed by: [address] [address] Blood 07/28/2024 7:15 AM CDT 07/28/2024 7:33 AM CDT us Rehab Dominik TY LAB BLOOD ORDERABLES Final Resu lt GENARO [facility] [address] Department [place] [address] * (ABNORMAL) CBC with auto differential (07/28/2024 7:15 AM CDT) WBC 10.6(H) 3.8 - 9.9 K/cumm Comment:Testing performed by : [address] [address] Hgb 12.8(L) 13.0 - 17.5 g/dL GENARO TOVAR Comment:Testing performed by : [address] [address] Hct 38.9 38.9 - 50.3 % GENARO TOVAR Comment:Testing performed by : [address] [address] Plt 237 150 - 400 K/cumm GENARO TOVAR Comment:Testing performed by : [address] [address] MPV 11.4 9.1 - 12.3 fL GENARO TOVAR Comment:Testing performed by : [address] [address] RBC 4.20(L) 4.30 - 5.80 M/cumm GENARO TOVAR Comment:Testing performed by : [address] [place] [address] MCV 92.6 81.3 - 96.4 fL GENARO TOVAR Comment:Testing performed by : [address] [address] MCH 30.5 27.1 - 33.3 pg GENARO TOVAR Comment:Testing performed by : [address] [address] MCHC 32.9 32.3 - 35.7 g/dL GENARO TOVAR Comment:Testing performed by : [address] [address] RDW CV 13.8 11.1 - 14.9 % GENARO TOVAR Comment:Testing performed by : [address] [address] RDW SD 46.3 35.7 - 48.1 fL GENARO TOVAR Comment:Testing performed by : [address] [address] NRBC abs 0.00 0.00 - 0.01 K/cumm GENARO TOVAR Comment:Testing performed by : [address] [address] Blood (Blood, Venous) 07/28/2024 7:15 AM CDT 07/28/2024 7:33 AM CDT us Rehab Dominik TY LAB BLOOD ORDERABLES Final Resu lt GENARO [address] Department [place] [address] * (ABNORMAL) Comprehensive metabolic panel (07/28/2024 7:15 AM CDT) Sodium 137 135 - 145 mmol/L Comment:Testing performed by : [address] [address] Potassium, pl 4.3 3.3 - 4.9 mmol/L EGNARO TOVAR Comment:Testing performed by : [address] [address] Chloride 103 97 - 110 mmol/L GENARO TOVAR Comment:Testing performed by : [address] [address] CO2 23 22 - 32 mmol/L GENARO Comment:Testing performed by : [address], [place]., [address] Anion gap 11 2 - 15 mmol/L GENARO Comment:Testing performed by : [address], [place]., [address] BUN 40(H) 6 - 25 mg/dL GENARO Comment:Testing performed by : [address], [place]., [address] Creatinine 1.50(H) 0.80 - 1.30 mg/dL GENARO Comment:Testing performed by : [address], [place]., [address] Glucose 109 70 - 199 mg/dL GENARO [...] classification and Diagnosis of Diabetes Diabetes Care 202; 46: S19-S40. Current interpretive data was last revised 2022. Testing performed by: [address] [address] Calcium 9.7 8.5 - 10.3 mg/dL GENARO Comment:Testing performed by : [address] [address] Bilirubin, total 0.5 0.1 - 1.2 mg/dL GENARO Comment:Testing performed by : [address] [address] Protein, pl 6.6 6.5 - 8.5 g/dL GENARO Comment:Testing performed by : [address] [address] Albumin 4.1 3.5 - 5.0 g/dL GENARO Comment:Testing performed by : [address] [address] Alk phos 80 40 - 130 Units/L GENARO TOVAR Comment:Testing performed by : [facility], [address] [place] [address]., [address] ALT 22 7 - 55 Units/L GENARO TOVAR Comment:Testing performed by : [facility], [address] [place] [address]., [address] AST 16 10 - 50 Units/L GENARO Comment:Testing performed by : [address], [address] Blood 07/28/2024 7:15 AM CDT 07/28/2024 7:34 AM CDT Rehab Dominik TY LAB BLOOD ORDERABLES Final Resu lt GENARO [address] Department [place] [address] * ECG 12 lead (07/28/2024 7:12 AM CDT) Ventricular Rate EKG/Min 81 BPM [facility] Atrial Rate 81 BPM [facility] AL-Interval (MSEC) 142 ms [facility] QRS-Interval (MSEC) 80 ms [facility] QT-Interval (MSEC) 358 ms [facility] QTc 415 ms [facility] P [place] 45 degrees [facility] R [place] 32 degrees [facility] T [place] 29 degrees [facility] Diagnosis Sinus rhythm with marked sinus arrhythmia with occasional Premature ventricular complexes Otherwise normal ECG When compared with ECG of 12-JUN-2022 08:06, Premature ventricular complexes are now Present ST no longer depressed in Inferior leads Confirmed by MIGUELINA PIERCE M.D. ([id number]) on 07/28/2024 8:26:26 AM [facility] 07/28/2024 7:12 AM CDT 07/28/2024 8:26 AM CDT us Rehab Dominik TY ECG ORDERABLES Final Result Performing Organization Address City/[facility]/ZIP Co de Phone Number [facility] [employer] [facility] * CT Abdomen Pelvis WO Contrast (11/03/2019 10:56 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) Anatomical Region Laterality Modality Body N/A Computed Tomogra phy 11/03/2019 3:02 PM TOWER ERECTOR HELPER Narrative 11/03/2019 3:09 PM TOWER ERECTOR HELPER Patient Name: RACHELE ANDRADE ?Ordering Dr: Anupama Kaplan PA-C ?? D.O.B: 1950 ? Exam Date: 11/03/19 ?? 1056 ?? Age: 68 ?Sex: Male ? MR#: [id number] ?? Loc: ? RADIOLOGY REPORT ?? Order #[id number] ?? CT Scan ? CT Abd/Pelvis WO [...] - Electronically signed by Miguelangel Valenzuela D.O. ?? Miguelangel Yan.O. ? D: ??11/03/2019 3:09 PM ?? T: ? Report ID: [id number] ?? Reading Location: ??[id number] ? REPORT ELECTRONICALLY SIGNED IN OTHER VENDOR SYSTEM ?? Resulting Agency Comment E Procedure Note Miguelangel Valenzuela DO - 11/03/2019 Patient Name: RACHELE ANDRADE Dr: Anupama Kaplan PA-C, D.O.B: 1950 Exam Date: 11/03/19 105 Age: 68 Sex: Male MR#: [id number] Loc: RADIOLOGY REPORT Order #[id number] CT Scan CT Abd/Pelvis WO IV Contrast [...] by Miguelangel Valenzuela D.O. T: Report ID: [id number] Reading Location: [place] [address] REPORT ELECTRONICALLY SIGNED IN OTHER VENDOR SYSTEM Anupama THACKER IMG CT PROCEDURES Final Resul t * Hepatitis panel, acute (07/21/2015 4:03 PM CDT) HepBsAg NONREACT NONREACTIVE 07/21/2015 5:[address] [facility] Comment: Siemens CentaurXP using KEESHA (chemiluminescent immunoassay) technology. NONREACTIVE: IgM antibodies to Hepatitis B Surface antigen not detected. REACTIVE: IgM antibodies to Hepatitis B Surface antigen detected. Reactive results will be confirmed by neutralization testing. HBsAb (immune status) NONREACT NONREACTIVE 07/21/2015 4:[address] [facility] HISTORICAL RESULTS Comment: Siemens CentaurXP using KEESHA (chemiluminescent immunoassay) technology. NONREACTIVE: IgM antibodies to Hepatitis B Surface antibody not detected. REACTIVE: IgM antibodies to Hepatitis B Surface antibody detected. Hep B core IgM NONREACT NONREACTIVE 5 5:[address] [facility] HISTORICAL RESULTS Comment: Siemens CentaurXP using KEESHA (chemiluminescent immunoassay) technology. NONREACTIVE: IgM antibodies to Hepatitis B Core antigen not detected. EQUIVOCAL: IgM antibodies to Hepatitis B Core antigen may or may not be present. Obtain a ??new specimen and retest. REACTIVE: IgM antibodies to Hepatitis B Core antigen detected. Hep A IgM NONREACT NONREACTIVE 07/21/2015 5:[address] [facility] HISTORICAL RESULTS Comment: Siemens CentaurXP using KEESHA (chemiluminescent immunoassay) technology. NONREACTIVE: IgM antibodies to Hepatitis A not detected. This does not exclude possibility of exposure to Hepatitis A or early acute infection. EQUIVOCAL:IgM antibodies to Hepatitis A may or may not be present. Suggest recollection and retest. REACTIVE: Antibodies to Hepatitis A detected. Hep C Ab NONREACT NONREACTIVE 07/21/2015 5:[address] [facility] HISTORICAL RESULTS Comment: Siemens CentaurXP using KEESHA [...] MICROBIOLOGY - GENERA L ORDERABLES Final Result [facility] HISTORICAL RESULTS from Last 3 Months or Most Recently Relevant to Health Maintenance Insurance [employer] MEDICARE PPO ARE FOR LIFE [employer] MEDICARE PPO [address] [place] [id number] Advance Directives For more information, please contact: [phone] * Full Code (Latest Code Status on File) Date Activated Date Inactivated Comments 06/12/2022 2:27 PM 06/18/2022 5:57 PM Care Teams Psychological Assistant Relationship Specialty Start Date End Date Nickie Negron MD [address] [place] [address] PCP - General 01/13/19
--- OUTSIDE RECORDS SUMMARY | 2024-10-27 10:52 | XMS_ITS | Encounter Summary ---
Author Organization [facility] Healthcare Address [address] [place] [address] Care Team Providers Care Pearler Name Role Phone Nickie Negron MD Primary Care Provider [phone] Reason for Visit * Reason Comments Chest Pain Encounter Details Date Type Department Care Team (Late st Contact Info) Description 07/28/2024 7:18 AM CDT - 07/28/2024 10:42 AM CDT Emergency [facility] Emergency Department [facility] [place] [address] Cailxto Lehman MD [address] [place] [id number] Chest pain, unspecified type (Primary Dx) Discharge Disposition: Discharge to home or self care Social History Tobacco Use Types Packs/Day Years [...] on file 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 Return immediately to the ER if difficulty breathing, severe chest pain or any other acute emergent concerns. * Attachments The following attachments cannot be sent through Care Everywhere. * Chest Pain (AfterCare(R) Instructions(ER/ED)) (Mexican) documented in this encounter Medications at Time of Discharge acetaminophen (TYLENOL) 500 mg tablet Take 1 tablet (500 mg total) by mouth every 8 (eight) hours as needed Asacol HD 800 mg EC tablet Take 1 tablet (800 mg total) by mouth 2 (two) times a day 05/11/2021 aspirin 81 mg enteric coated tablet Take 1 tablet (81 mg total) by mouth daily buPROPion XL (WELLBUTRIN XL) 150 mg 24 hr tablet Take 1 tablet (150 mg total) by mouth daily calcium carbonate (OS-RADHA) 1,500 mg (600 mg elemental) tablet Take 1 tablet every day by oral route in the morning. 04/08/2024 carvediloL (COREG) 3.125 mg tablet Take 1 tablet (3.125 mg total) by mouth 2 (two) times a day with meals 06/19/2021 cholestyramine (QUESTRAN) 4 gram powder Take 1 packet (4 g total) by mouth nightly as needed cilostazol (PLETAL) 50 mg tablet Take 1 tablet (50 mg total) by mouth 2 (two) times a day clopidogreL (PLAVIX) 75 mg tablet Take 1 tablet (75 mg total) by mouth daily cyanocobalamin, vitamin B-12, 5,000 mcg tablet, sublingual Place 5,000 mcg under the tongue daily folic acid (FOLVITE) 1 mg tablet Take 1 tablet (1 mg total) by mouth daily 01/27/2020 levothyroxine (SYNTHROID) 175 mcg tablet Take 1 tablet (175 mcg total) by mouth every morning 01/02/[address] (PROTONIX) 20 mg EC tablet Take 1 tablet (20 mg total) by mouth daily polysaccharide iron complex (NU-IRON) 150 mg iron capsuleIndication s:Iron Deficiency Anemia Take 1 capsule (150 mg total) by mouth every other day pravastatin (PRAVACHOL) 10 mg tablet Take 1 tablet (10 mg total) by mouth nightly 05/19/2019 sodium bicarbonate 650 mg tablet Take 1 tablet (650 mg total) by mouth 3 (three) times a day 1000 tablet 3 02/22/2023 vit C,Z-Nc-pksum-lute in-zeaxan (PreserVision AREDS-2) 250-90-40-1 mg capsule Take 1 capsule by mouth every 12 hours albuterol HFA (PROVENTIL HFA,VENTOLIN HFA,PROAIR HFA) 90 mcg/actuation inhaler Inhale 2 puffs every 8 (eight) hours as needed denosumab (PROLIA) 60 mg/mL syringe Inject 1 mL (60 mg total) under the skin every 6 (six) months diclofenac sodium 3 % gel Apply 1 Application topically 4 (four) times a day as needed (pain) fluticasone propionate (FLONASE) 50 mcg/actuation nasal spray Administer 1 spray into each nostril daily as needed lidocaine HCL 4 % cream 2 (two) times a day as needed (pain) 08/15/2023 documented as of this encounter Discharge Disposition Disposition Code Departure Means Destination Comment s Discharge to home or self care documented in this encounter ED Notes * Calixto Lehman MD - 07/28/2024 7:37 AM CDT HPI Chief Complaint Patient presents with Chest Pain 73-year-old male past medical history of CAD status post stents many years ago presents with intermittent chest pain over the last several days that he describes as pressure sensation that lasts for few seconds and self resolves. Patient had an episode at approximately midnight and told his ujjxzaxk-rp-wdd who brought him in for evaluation. He denies any associated shortness of breath, nausea, radiation of the pain, diaphoresis. He does report some mild dyspnea on exertion but states that this is not new for him. He denies any lower extremity swelling. No recent illness, cough or congestion. 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 HPI Patient History: Patient Active Problem List Diagnosis Date Noted Bilateral shoulder pain 04/17/2024 Arthritis of glenohumeral joint 01/13/2024 Overweight with body mass index (BMI) 25.0-29.9 01/08/2024 Mild memory disturbance 07/29/2023 Iron deficiency 07/02/2022 Anemia 06/27/2022 Abdominal pain Melena 06/12/2022 Chronic kidney disease, stage III (moderate) ([facility]) Bilateral carotid artery stenosis 08/23/2021 Encounter for long-term (current) use of insulin ([facility]) 07/12/2021 Occlusion of left carotid artery 02/22/2021 Carotid artery stenosis, unilateral 02/05/2021 Benign prostatic hyperplasia with urinary obstruction 01/04/2021 Acute dehydration 05/05/2020 Acute kidney injury (HCC) 05/05/2020 Body mass index (BMI) 19.9 or less, adult 05/05/2020 Chronic obstructive pulmonary disease with bronchospasm ([facility]) 05/05/2020 Acute renal failure superimposed on chronic kidney disease (HCC) 05/05/2020 Coffee ground emesis 05/05/2020 Diarrhea due to cryptosporidium ([facility]/HCC) (HCC) 05/05/2020 Fall involving ice skates 05/05/2020 Family history of stroke 05/05/2020 Gastroenteritis 05/05/2020 Gastroesophageal reflux disease with esophagitis 05/05/2020 Gastrointestinal hemorrhage 05/05/2020 History of Crohn's disease 05/05/2020 Leukocytosis 05/05/2020 Hypotension due to blood loss 05/05/2020 Repeated falls 05/05/2020 Systemic inflammatory response syndrome (SIRS) ([facility]) 05/05/2020 Traumatic hematoma of hand 05/05/2020 Inflammation of colonic mucosa 05/05/2020 Age-related macular degeneration 04/18/2020 Mucoid diarrhea 04/18/2020 Macrocytosis 01/19/2020 Kidney stone 11/03/2019 Vitamin B12 deficiency (non anemic) 05/19/2019 Body mass index (BMI) of 20 to 24 02/17/2019 Hyperuricemia 11/19/2018 Asthma 08/16/2017 History of colonic polyps 08/16/2017 Mixed anxiety and depressive disorder 08/16/2017 Vitamin D deficiency 08/16/2017 Hypomagnesemia 12/28/2016 Hypophosphatemia 12/28/2016 Dyslipidemia 12/19/2016 Claudication of left lower extremity ([facility]) 06/21/2016 History of acute renal failure 03/19/2016 Hypokalemia due to loss of potassium 03/19/2016 Coronary artery disease 02/27/2016 Crohn's disease without complication ([facility]) ([facility]) 02/27/2016 Ex-smoker 02/27/2016 Hyperlipidemia 02/27/2016 Moderate essential hypertension 02/27/2016 Osteoarthritis 02/27/2016 Osteoporosis 02/27/2016 Peripheral vascular disease ([facility]) ([facility]) 02/27/2016 Primary hypothyroidism 02/27/2016 Dyspnea on exertion 01/28/2016 Kidney disease 01/28/2016 Mass of nose 05/16/2015 Past Medical History: Diagnosis Date Asthma Celiac sprue Chronic kidney disease, stage III (moderate) ([facility]) Coronary artery disease Crohn's colitis ([facility]) ([facility]) DJD (degenerative joint disease) GERD (gastroesophageal reflux disease) Hyperlipidemia Hypertension Hypokalemia Hypomagnesemia Hypophosphatemia Hypothyroidism Past Surgical History: Procedure Laterality Date ATHERECTOMY Left 05/04/2015 popliteal CARDIAC CATHETERIZATION stent COLONOSCOPY W/ BIOPSIES 04/13/2016 NECK SURGERY 10/22/2011 Neck fracture UPPER GASTROINTESTINAL ENDOSCOPY Family History Problem Relation Age of Onset Cerebral aneurysm Father Family history of cerebral aneurysm - (Added by TW Conv) Hypertension Other Social History Tobacco Use Smoking status: Former Current packs/day: 0.00 Types: Cigarettes Quit date: 2011 Years since quittin.7 Smokeless tobacco: Never Vaping Use Vaping status: Never Used Substance and Sexual Activity Alcohol use: Not Currently Drug use: Not Currently Sexual activity: Defer Social History Social History Narrative Not on file Review of Systems Review of Systems Constitutional: Negative for chills and fever. Respiratory: Negative for cough and shortness of breath. Cardiovascular: Positive for chest pain. Negative for leg swelling. Gastrointestinal: Negative for abdominal pain, nausea and vomiting. Physical Exam ED Triage Vitals Temp Pulse Resp BP SpO2 07/28/2470507/28/24 0707/28/24 0707/28/24 0708 07/28/24 07 36.4 ??C (97.5 ??F) 90 20 139/82 100 % Temp src Heart Rate Source Patient Position BP Location FiO2 (%) 07/28/24705 -- -- -- -- Tympanic Height Height Method Weight Weight Method -- -- 07/28/24 0709 07/28/24 07 64.9 kg (143 lb 1.3 oz) Standing scale Physical Exam Vitals and nursing note reviewed. Constitutional: General: He is not in acute distress. Appearance: He is not ill-appearing or toxic-appearing. HENT: Head: Normocephalic and atraumatic. Cardiovascular: Rate and Rhythm: Normal rate and regular rhythm. Heart sounds: No murmur heard. Pulmonary: Effort: Pulmonary effort is normal. No tachypnea or respiratory distress. Breath sounds: Normal breath sounds. No stridor. Abdominal: Palpations: Abdomen is soft. Tenderness: There is no abdominal tenderness. There is no guarding or rebound. Musculoskeletal: Right lower leg: No edema. Left lower leg: No edema. Skin: General: Skin is warm and dry. Neurological: General: No focal deficit present. Mental Status: He is alert. Psychiatric: Mood and Affect: Mood normal. Labs Reviewed CBC WITH AUTO DIFFERENTIAL - Abnormal Result Value WBC 10.6 (*) Hgb 12.8 (*) Hct 38.9 Plt 237 MPV 11.4 RBC 4.20 (*) MCV 92.6 MCH 30.5 MCHC 32.9 RDW CV 13.8 RDW SD 46.3 NRBC abs 0.00 COMPREHENSIVE METABOLIC PANEL - Abnormal Sodium 137 Potassium, pl 4.3 Chloride 103 CO2 23 Anion gap 11 BUN 40 (*) Creatinine 1.50 (*) Glucose 109 Calcium 9.7 Bilirubin, total 0.5 Protein, pl 6.6 Albumin 4.1 Alk phos 80 ALT 22 AST 16 TROPONIN T HIGH-SENSITIVITY SERIES (BASELINE, 2HR, 4HR, 6HR) - Abnormal Trop T hs 29 (*) DIFFERENTIAL AUTO - Abnormal Neutrophil abs 6.9 (*) Imm gran abs 0.4 (*) Lymphocyte abs 2.0 Monocyte abs 1.1 (*) Eosinophil abs 0.2 Basophil abs 0.1 Neutrophil pct 65.5 Imm gran pct 3.8 Lymphocyte pct 18.7 Monocyte pct 9.9 Eosinophil pct 1.4 Basophil pct 0.7 TROPONIN T HIGH-SENSITIVITY 2-HOUR - Abnormal Trop T hs 28 (*) Trop T hs delta -1 Trop T hs interp Insignificant EGFR - Abnormal eGFR 48 (*) MDM 73-year-old male presents with atypical chest pain. Vital signs stable, no acute distress, nontoxic. This time. EKG without any ischemic findings troponin is negative x2 at greater than 6 hours of pain. Doubt ACS at this time. Doubt PE, tamponade, esophageal rupture, CHF, pneumothorax, pneumonia. 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 Return instructions discussed with him and his family at bedside greater comfortable with discharge at this time. Heart Score History (Anamnesis): 0 EC Age: 1 Risk factors: 2 Troponin: 0 Heart Score Total: 4 Medical Decision Making Amount and/or Complexity of Data Reviewed Radiology: ordered. ECG/medicine tests: ordered and independent interpretation performed. Risk OTC drugs. Final diagnoses: Chest pain, unspecified type Calixto Lehman MD 07/28/24 180 * Cassi Maldonado RN - 07/28/2024 7:10 AM CDT Pt arrived from home with reports of chest pain last night no sob nausea or vomiting. Pt reports pain has no resolved. documented in this encounter Miscellaneous Notes * ED Procedure Note - Calixto Lehman MD - 07/28/2024 7:51 AM CDTAssociated Order(s): ECG 12 lead Procedure ECG 12 lead Date/Time: 07/28/2024 7:51 AM Performed by: Calixto Lemhan MD Authorized by: Calixto Lehman MD Comments: Rate 81 Normal sinus rhythm with sinus arrythmia No stemi, no acute ischemic findings Calixto Lehman MD 07/28/24 0752 documented in this encounter Plan of Treatment Not on file documented as of this encounter Procedures Procedure Name Priority Date/Time Associated Diagnosis Comments TROPONIN T HIGH-SENSITIVITY 2-HOUR Timed 07/28/2024 9:25 AM CDT XR CHEST 1 VIEW ED 07/28/2024 7:47 AM CDT TROPONIN T HIGH-SENSITIVITY SERIES (BASELINE, 2HR, 4HR, 6HR) STAT 07/28/2024 7:15 AM CDT EGFR STAT 07/28/2024 7:15 AM CDT DIFFERENTIAL AUTO STAT 07/28/2024 7:1 5 AM CDT CBC WITH AUTO DIFFERENTIAL STAT 07/28/2024 7:15 AM CDT COMPREHENSIVE METABOLIC PANEL STAT 07/28/2024 7:15 AM CDT ECG 12-LEAD STAT 07/28/2024 7:12 AM CDT documented in this encounter Results * (ABNORMAL) Troponin T high-sensitivity 2-hour (07/28/2024 9:25 AM CDT) Trop T hs 28(H) <=22 ng/L Comment: Interpretive Data For further hscTnT resources including the diagnostic algorithm and an aid in interpretation, copy and paste this link: https://nrl.testcatalog.org/show/hsTrop Current Interpretive Data last revised 2020. Testing performed by: [facility], [address] [place] [address]., [address] Trop T hs delta -1 ng/L GENARO TOVAR Comment:Testing performed by : [facility], [address] [place] [address]., [address] Trop T hs interp Insignificant GENARO TOVAR Comment:Testing performed by : [facility], [address] [place] [address]., [address] Blood 07/28/2024 9:25 AM CDT 07/28/2024 9:33 AM CDT us [facility] TY LAB BLOOD ORDERABLES Final Resu lt GENARO [address] Department [place] [address] * XR Chest 1 Vw Portable (if [...] AM T: ??07/28/2024 7:54 AM Report ID: [id number] Reading Location: [id number] Procedure Note Alesha Olguin MD - 07/28/2024 [...] Kishore Olguin M.D. LC: SAMMY Report ID: [id number] Reading Location: [place] [address] [facility] T[facility] IMG XR PROCEDURES Final Result * (ABNORMAL) eGFR (07/28/2024 7:15 AM CDT) [...] was last reviewed 2021. Testing performed by: [address] [address] Blood 07/28/2024 7:15 AM CDT 07/28/2024 7:34 AM CDT us Re[facility] TY LAB BLOOD ORDERABLES Final Resu lt GENARO [facility] [address] [facility] Department [place] [address] * (ABNORMAL) Differential, auto (07/28/2024 7:15 AM CDT) Neutrophil abs 6.9(H) 1.5 - 6.5 K/cumm Comment:Testing performed by : [address] [address] Imm gran abs 0.4(H) 0.0 - 0.1 K/cumm GENARO Comment:Testing performed by : [address] [address] Lymphocyte abs 2.0 0.8 - 3.3 K/cumm GENARO Comment:Testing performed by : [address] [address] Monocyte abs 1.1(H) 0.2 - 0.8 K/cumm GENARO Comment:Testing performed by : [address] [address] Eosinophil abs 0.2 0.0 - 0.5 K/cumm GENARO Comment:Testing performed by : [address] [address] Basophil abs 0.1 0.0 - 0.1 K/cumm GENARO Comment:Testing performed by : [address] [address] Neutrophil pct 65.5 % GENARO Comment: Interpretive Data Percent cell count reference ranges are not reported, since discordance with absolute values may lead to misinterpretation of CBC data. Current Interpretive Data was last revised on 2018. Testing performed by: [address] [address] Imm gran pct 3.8 % GENARO Comment: Interpretive Data Percent cell count reference ranges are not reported, since discordance with absolute values may lead to misinterpretation of CBC data. Current Interpretive Data was last revised on 2018. Testing performed by: [address] [address] Lymphocyte pct 18.7 % GENARO Comment: Interpretive Data Percent cell count reference ranges are not reported, since discordance with absolute values may lead to misinterpretation of CBC data. Current Interpretive Data was last revised on 2018. Testing performed by: [address] [address] Monocyte pct 9.9 % GENARO Comment: Interpretive Data Percent cell count reference ranges are not reported, since discordance with absolute values may lead to misinterpretation of CBC data. Current Interpretive Data was last revised on 2018. Testing performed by: [address] [address] Eosinophil pct 1.4 % GENARO Comment: Interpretive Data Percent cell count reference ranges are not reported, since discordance with absolute values may lead to misinterpretation of CBC data. Current Interpretive Data was last revised on 2018. Testing performed by: [address] [address] Basophil pct 0.7 % GENARO Comment: Interpretive Data Percent cell count reference ranges are not reported, since discordance with absolute values may lead to misinterpretation of CBC data. Current Interpretive Data was last revised on 2018. Testing performed by: [address] [address] Blood 07/28/2024 7:15 AM CDT 07/28/2024 7:33 AM CDT us Re[facility] TY LAB BLOOD ORDERABLES Final Resu lt GENARO TOVAR [address] [place] [address] [place] [address] * (ABNORMAL) Troponin T high-sensitivity series (baseline, 2hr, 4hr, 6hr) (07/28/2024 7:15 AM CDT) Pathologist [facility] Trop T hs 29(H) <=22 ng/L Comment: Interpretive Data For further hscTnT resources including the diagnostic algorithm and an aid in interpretation, copy and paste this link: https://nrl.testcatalog.org/show/hsTrop Current Interpretive Data last revised 2020. Testing performed by: [address] [address] Blood 07/28/2024 7:15 AM CDT 07/28/2024 7:34 AM CDT us Rehab Domin[facility] TY LAB BLOOD ORDERABLES Final Resu lt GENARO TOVAR [address] [place] [address] [place] [address] * (ABNORMAL) Comprehensive metabolic panel (07/28/2024 7:15 AM CDT) [facility] Sodium 137 135 - 145 mmol/L Comment:Testing performed by : [address] [address] Potassium, pl 4.3 3.3 - 4.9 mmol/L GENARO TOVAR Comment:Testing performed by : [address] [address] Chloride 103 97 - 110 mmol/L GENARO TOVAR Comment:Testing performed by : [address] [address] CO2 23 22 - 32 mmol/L GENARO TOVAR Comment:Testing performed by : [address] [address] Anion gap 11 2 - 15 mmol/L GENARO TOVAR Comment:Testing performed by : [address] [address] BUN 40(H) 6 - 25 mg/dL GENARO TOVAR Comment:Testing performed by : [address] [place]., [address] Creatinine 1.50(H) 0.80 - 1.30 mg/dL GENARO Comment:Testing performed by : [address] [address] Glucose 109 70 - 199 mg/dL GENARO [...] was last revised 2022. Testing performed by: [address] [address] Calcium 9.7 8.5 - 10.3 mg/dL GENARO Comment:Testing performed by : [address] [address] Bilirubin, total 0.5 0.1 - 1.2 mg/dL GENARO Comment:Testing performed by : [address] [address] Protein, pl 6.6 6.5 - 8.5 g/dL GENARO Comment:Testing performed by : [address] [address] Albumin 4.1 3.5 - 5.0 g/dL GENARO Comment:Testing performed by : [address] [address] Alk phos 80 40 - 130 Units/L GENARO Comment:Testing performed by : [address] [address] ALT 22 7 - 55 Units/L GENARO Comment:Testing performed by : [address] [address] AST 16 10 - 50 Units/L GENARO Comment:Testing performed by : [address] [address] Blood 07/28/2024 7:15 AM CDT 07/28/2024 7:34 AM CDT us Re[facility] Domin[facility] TY LAB BLOOD ORDERABLES Final Resu lt GENARO [address] [facility] Department [place] [address] * (ABNORMAL) CBC with auto differential (07/28/2024 7:15 AM CDT) Pathologist [facility] WBC 10.6(H) 3.8 - 9.9 K/cumm Comment:Testing performed by : [address] [address] Hgb 12.8(L) 13.0 - 17.5 g/dL GENARO Comment:Testing performed by : [address] [address] Hct 38.9 38.9 - 50.3 % GENARO Comment:Testing performed by : [address] [address] Plt 237 150 - 400 K/cumm GENARO Comment:Testing performed by : [address] [address] MPV 11.4 9.1 - 12.3 fL GENARO Comment:Testing performed by : [address] [address] RBC 4.20(L) 4.30 - 5.80 M/cumm GENARO Comment:Testing performed by : [address] [address] MCV 92.6 81.3 - 96.4 fL GENARO Comment:Testing performed by : [address] [address] MCH 30.5 27.1 - 33.3 pg GENARO Comment:Testing performed by : [address] [address] MCHC 32.9 32.3 - 35.7 g/dL GENARO Comment:Testing performed by : [address] [place]., [address] RDW CV 13.8 11.1 - 14.9 % GENARO TOVAR Comment:Testing performed by : [address] [address] RDW SD 46.3 35.7 - 48.1 fL GENARO TOVAR Comment:Testing performed by : [facility], [address] [place] [address]., [address] NRBC abs 0.00 0.00 - 0.01 K/cumm GENARO TOVAR Comment:Testing performed by : [address] [address] Blood (Blood, Venous) 07/28/2024 7:15 AM CDT 07/28/2024 7:33 AM CDT Rehab [facility] TY LAB BLOOD ORDERABLES Final Resu lt Performing Organization Address City/[facility] Co de Phone Number GENARO [address] Department of Laboratories [place], [place] [id number] * ECG 12 lead (07/28/2024 7:12 AM CDT) Ventricular Rate EKG/Min 81 BPM [facility] Atrial Rate 81 BPM [facility] OK-Interval (MSEC) 142 ms [facility] QRS-Interval (MSEC) 80 ms [facility] QT-Interval (MSEC) 358 ms [facility] QTc 415 ms [facility] P [place] 45 degrees [facility] R [place] 32 degrees [facility] T [place] 29 degrees [facility] Diagnosis Sinus rhythm with marked sinus arrhythmia with occasional Premature ventricular complexes Otherwise normal ECG When compared with ECG of 12-JUN-2022 08:06, Premature ventricular complexes are now Present ST no longer depressed in Inferior leads Confirmed by MIGUELINA PIERCE M.D. ([id number]) on 07/28/2024 8:26:26 AM [facility] 07/28/2024 7:12 AM CDT 07/28/2024 8:26 AM CDT Rehab Dominik TY ECG ORDERABLES Final Result [facility] documented in this encounter Visit Diagnoses Diagnosis Chest pain, unspecified type- Primary documented in this encounter Administered Medications Inactive Administered Medications - up to 3 most recent administrations Medication Order MAR Action Action Date Dose Rate Site aspirin chewable tablet 324 mg 324 mg, oral, Once, On Sat07/28/24 at 0709, For 1 dose, Indications: Chest PainIndications:Chest Pain Given 07/28/2024 7:15 AM CDT 324 mg documented in this encounter Discontinued Medications Medication Sig Discontinue Reason Start Date End Da te benzonatate (TESSALON) 100 mg capsule Take 1 capsule (100 mg total) by mouth 3 (three) times a day Therapy completed 07/28/2024 cefdinir (OMNICEF) 300 mg capsule Take 1 capsule (300 mg total) by mouth every 12 (twelve) hours Therapy completed 07/28/2024 cholecalciferol (VITAMIN D-3) 25 mcg (1,000 unit) tablet Take 1 tablet (1,000 Units total) by mouth daily Therapy completed 07/28/[address] (PROTONIX) 40 mg EC tablet Take 1 tablet (40 mg total) by mouth 2 (two) times a day before breakfast and dinner Therapy completed 06/18/2022 07/28/2024 tiZANidine (ZANAFLEX) 4 mg tablet daily Therapy completed 07/28/2024 triamcinolone (KENALOG) 0.1 % cream Apply topically 2 (two) times a day Feet and legs Therapy completed 07/28/2024 VIAGRA 50 mg tablet Take 1 tablet (50 mg total) by mouth as needed Therapy completed 07/13/2019 07/28/2024 vitamins A,C,W-qbkh-xygysl (PreserVision AREDS) 4,296 mcg-226 mg-90 mg capsule Therapy completed 07/28/2024 documented as of this encounter Historical Medications * This list may reflect changes made after this encounter. denosumab (PROLIA) 60 mg/mL syringe Inject 1 mL (60 mg total) under the skin every 6 (six) months pantoprazole DR (PROTONIX) 20 mg EC tablet Take 1 tablet (20 mg total) by mouth daily added in this encounter Active and Recently Administered Medications Times are shown in CDT. Scheduled Medication Order 07/26/2024 07/27/2024 07/28/2024 aspirin chewable tablet 324 mg (COMPLETED) 324 mg, oral, Once, On Sat07/28/24 at 0709, For 1 dose, Indications: Chest Pain 0715 (Given - Provid er: Silke Reyes RN) documented in this encounter Orders Nursing Count Last Ordered Date First Orde red Date CONTINUOUS PULSE OXIMETRY 1 07/28/2024 IV Count Last Ordered Date First Orde red Date SALINE LOCK IV 1 07/28/2024 documented in this encounter Care Teams Pearler Relationship Specialty Start Date End Date Nickie Negron MD [address] [place] [address] PCP - General 01/13/19 documented as of this encounter
--- OUTSIDE RECORDS SUMMARY | 2024-10-27 10:53 | XMS_ITS | Encounter Summary ---
Author Organization [facility] Healthcare Address [address] [place] [address] Care Team Providers Care Operations Leader Name Role Phone Nickie Negron MD Primary Care Provider +1- [phone] Reason for Referral * Diagnostic Imaging (Routine) - Closed Specialty Diagnoses / Procedures Referred By Roula mcmillan Referred To Contact Diagnoses Bilateral shoulder pain, unspecified chronicity Procedures XR Shoulder Left 2 or More Views Gayle Lawson PA [address] [place] [address] DR [address] [place] [address] Phone: tel: fax: [address] [phone] Referral ID Status Reason Start Date Expiration Date Visits Re quested Visits Authorized [id number] Closed 01/13/2024 02/11/2025 1 1 Reason for Visit * Diagnostic Imaging (Routine) - Closed Specialty Diagnoses / Procedures Referred By Roula mcmillan Referred To Contact Diagnoses Bilateral shoulder pain, unspecified chronicity Procedures XR Shoulder Left 2 or More Views Gayle Lawson PA [address] [place] [address] DR [address]UR[address] [place] [address] Phone: tel: fax: [address] [phone] Referral ID Status Reason Start Date Expiration Date Visits Re quested Visits Authorized [id number] Closed 01/13/2024 02/11/2025 1 1 Encounter Details Date Type Department Care Team (Latest Contact Info) Description 01/13/2024 2:01 PM CDT - 01/13/2024 11:59 PM CDT Hospital Encounter [facility] [address] [place] [address] Bilateral shoulder pain, unspecified chronicity Discharge Disposition: Discharge to home or self [...] file 07/29 Personal Safety Answer Date Recorded Getting School Help Needed Not on file 10/08 Sex and Gender Information Value Date Recorded Sex Assigned at Not on file 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 Gender Identity Not on file Sexual Orientation [...] tablet (150 mg total) by mouth daily carvediloL (COREG) 3.125 mg tablet Take 1 [...] mcg total) by mouth every morning 01/02/2024 polysaccharide iron complex (NU-IRON) 150 mg iron capsuleIndication s:Iron Deficiency Anemia Take 1 capsule (150 mg total) by mouth every other day pravastatin (PRAVACHOL) 10 mg tablet Take 1 tablet (10 mg total) by mouth nightly 05/19/2019 sodium bicarbonate 650 mg tablet Take 1 tablet (650 mg total) by mouth 3 (three) times a day 1000 tablet 3 02/22/2023 vit C,Q-Fm-woevf-lute in-zeaxan (PreserVision AREDS-2) 250-90-40-1 mg capsule Take 1 capsule by mouth every 12 hours albuterol HFA (PROVENTIL HFA,VENTOLIN HFA,PROAIR HFA) 90 mcg/actuation inhaler Inhale 2 puffs every 8 (eight) hours as needed diclofenac sodium 3 % gel Apply 1 Application topically 4 (four) times a day as needed (pain) fluticasone propionate (FLONASE) 50 mcg/actuation nasal spray Administer 1 spray into each nostril daily as needed lidocaine HCL 4 % cream 2 (two) times a day as needed (pain) 08/15/2023 cholecalciferol (VITAMIN D-3) 25 mcg (1,000 unit) tablet Take 1 tablet (1,000 Units total) by mouth daily [address] (PROTONIX) 40 mg EC tablet Take 1 tablet (40 mg total) by mouth 2 (two) times a day before breakfast and dinner 60 tablet 06/18/2022 4 tiZANidine (ZANAFLEX) 4 mg tablet daily 4 triamcinolone (KENALOG) 0.1 % cream Apply topically 2 (two) times a day Feet and legs 4 VIAGRA 50 mg tablet Take 1 tablet (50 mg total) by mouth as needed 07/13/2019 4 documented as of this encounter Discharge Disposition Disposition Code Departure Means Destination Discharge to home or self care documented in this encounter Plan of Treatment Not on file documented as of this encounter Procedures Procedure Name Priority Date/Time Associated Diagnosis Comments XR SHOULDER RIGHT 2 OR MORE VIEWS Schedule Routine, Read Routine (OP Routine) 01/13/2024 2:12 PM CDT Bilateral shoulder pain, unspecified chronicity XR SHOULDER LEFT 2 OR MORE VIEWS Schedule Routine, Read Routine (OP Routine) 01/13/2024 2:12 PM CDT Bilateral shoulder pain, unspecified chronicity documented in this encounter Results * XR Shoulder Right 2 or More Views (01/13/2024 2:12 PM CDT) Anatomical Region Laterality Modality Upper Extremities, Shoulder Right Comp uted Radiography 01/13/2024 9:02 PM CDT Narrative 01/13/2024 9:04 PM CDT EXAM DESCRIPTION: XR SHOULDER LEFT 2 OR MORE VIEWS; XR SHOULDER RIGHT 2 OR MORE VIEWS REASON FOR STUDY: left shoulder pain ?? right shoulder pain ?? Bilateral shoulder pain with ROM, L>R x 1 yr, NKI ? FINDINGS: Three views each shoulder submitted without comparison. No acute fractures are identified. ??There is mild left and lups-on-mlfuuyjv right bilateral glenohumeral joint osteoarthritis. ??There is mild left and moderate right bilateral acromioclavicular joint osteoarthritis. ?? There is superior subluxation of the right humeral head with narrowing of the subacromial space. IMPRESSION: Ovdm-vr-fpbqbgkd right rotator cuff arthropathy. Mild left glenohumeral joint osteoarthritis. 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 THIS IS AN ELECTRONICALLY VERIFIED FINAL REPORT 01/13/2024 9:04 PM - Electronically signed by ??Julius Lopez M.D. D: ??01/13/2024 9:04 PM T: Report ID: [id number] Reading Location: ??[id number] Procedure Note Julius Lopez MD - 01/13/2024 EXAM DESCRIPTION: XR SHOULDER LEFT 2 OR MORE VIEWS; XR SHOULDER RIGHT 2 OR MORE VIEWS REASON FOR STUDY: left shoulder pain right shoulder pain Bilateral shoulder pain with ROM, L>R x 1 yr, NKI FINDINGS: Three views each shoulder submitted without comparison. No acute fractures are identified. There is mild left hhzkaba-dr-snqumqxk right bilateral glenohumeral joint osteoarthritis. There is mild left and moderate right bilateral acromioclavicular joint osteoarthritis. Thereis superior subluxation of the right humeral head with narrowing of the subacromial space. IMPRESSION: Xthi-uk-ysuubmuo right rotator cuff arthropathy. Mild left glenohumeral joint osteoarthritis. Mild left and moderate right bilateral acromioclavicular jointosteoarthritis. THIS IS AN ELECTRONICALLY VERIFIED FINAL REPORT 01/13/2024 9:04 PM - Electronically signed by Julius Lopez M.D. T: Report ID: [id number] Reading Location: [place] [address] Gayle THACKER IMG XR PROCEDURES Final R esult * XR Shoulder Left 2 or More Views (01/13/2024 2:12 PM CDT) Anatomical Region Laterality Modality Upper Extremities, Shoulder Left Comp uted Radiography 01/13/2024 9:02 PM CDT Narrative 01/13/2024 9:04 PM CDT EXAM DESCRIPTION: XR SHOULDER LEFT 2 OR MORE VIEWS; XR SHOULDER RIGHT 2 OR MORE VIEWS REASON FOR STUDY: left shoulder pain ?? right shoulder pain ?? Bilateral shoulder pain with ROM, L>R x 1 yr, NKI ? FINDINGS: Three views each shoulder submitted without comparison. No acute fractures are identified. ??There is mild left and qvhl-sp-xixizped right bilateral glenohumeral joint osteoarthritis. ??There is mild left and moderate right bilateral acromioclavicular joint osteoarthritis. ?? There is superior subluxation of the right humeral head with narrowing of the subacromial space. IMPRESSION: Lfvc-ze-hqaznrzb right rotator cuff arthropathy. Mild left glenohumeral joint osteoarthritis. 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 THIS IS AN ELECTRONICALLY VERIFIED FINAL REPORT 01/13/2024 9:04 PM - Electronically signed by ??Julius Lopez M.D. D: ??01/13/2024 9:04 PM T: Report ID: [id number] Reading Location: ??[id number] Procedure Note Julius Lopez MD - 01/13/2024 EXAM DESCRIPTION: XR SHOULDER LEFT 2 OR MORE VIEWS; XR SHOULDER RIGHT 2 OR MORE VIEWS REASON FOR STUDY: left shoulder pain right shoulder pain Bilateral shoulder pain with ROM, L>R x 1 yr, NKI FINDINGS: Three views each shoulder submitted without comparison. No acute fractures are identified. There is mild left orvvffy-ug-nbampsob right bilateral glenohumeral joint osteoarthritis. There is mild left and moderate right bilateral acromioclavicular joint osteoarthritis. Thereis superior subluxation of the right humeral head with narrowing of the subacromial space. IMPRESSION: Klak-qb-uvugrjof right rotator cuff arthropathy. Mild left glenohumeral joint osteoarthritis. Mild left and moderate right bilateral acromioclavicular jointosteoarthritis. THIS IS AN ELECTRONICALLY VERIFIED FINAL REPORT 01/13/2024 9:04 PM - Electronically signed by Julius Lopez M.D. T: Report ID: [id number] Reading Location: [id number] Gayle THACKER IMG XR PROCEDURES Final R esult documented in this encounter Visit Diagnoses Diagnosis Bilateral shoulder pain, unspecified chronicity documented in this encounter Care Teams Operations Leader Relationship Specialty Start Date End Date Nickie Negron MD [address] [facility] [address] [place] [address] PCP - General 01/13/19 documented as of this encounter
--- OUTSIDE RECORDS SUMMARY | 2024-10-27 10:53 | XMS_ITS | Encounter Summary ---
Author Organization [facility] Healthcare Address [address] [place] [address] Care Team Providers Care Basting Marker Name Role Phone Nickie Negron MD Primary Care Provider [phone]- [phone] Reason for Referral * Diagnostic Imaging (Routine) - Closed Specialty Diagnoses / Procedures Referred By Roula t Referred To Contact Diagnoses Right knee pain, unspecified chronicity Procedures XR Knee Right 3 View [facility] [address] [place] [address] Phone: tel: fax: [address] [phone] Referral ID Status Reason Start Date Expiration Date Visits Re quested Visits Authorized [id number] Closed 01/27/2024 02/25/2025 1 1 * Diagnostic Imaging (Routine) - Closed Specialty Diagnoses / Procedures Referred By Roula t Referred To Contact Diagnoses Left knee pain, unspecified chronicity Procedures XR Knee Left 3 View Gayle Lawson PA [address] [place] [address] DR [address]UR[address] [place] [address] Phone: tel: fax: [address] [phone] Referral ID Status Reason Start Date Expiration Date Visits Re quested Visits Authorized [id number] Closed 01/27/2024 02/25/2025 1 1 Reason for Visit * Diagnostic Imaging (Routine) - Closed Specialty Diagnoses / Procedures Referred By Roula t Referred To Contact Diagnoses Left knee pain, unspecified chronicity Procedures XR Knee Left 3 View Gayle Lawson PA [address] [address] Phone: tel: fax: [facility] [address] [place] [phone] Referral ID Status Reason Start Date Expiration Date Visits Re quested Visits Authorized [id number] Closed 01/27/2024 02/25/2025 1 1 Encounter Details Date Type Department Care Team (Latest Contact Info) Description 01/27/2024 2:00 PM CDT - 01/27/2024 11:59 PM CDT Hospital Encounter [facility] Di[facility] Imaging [address] [place] [id number] Left knee pain, unspecified chronicity; Right knee pain, unspecified chronicity Discharge Disposition: Discharge to [...] on file 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 Gender Identity Not on file Sexual Orientation [...] a day 1000 tablet 3 02/22/2023 vit C,J-Dd-rbkfp-lute in-zeaxan (PreserVision AREDS-2) 250-90-40-1 mg capsule Take [...] Name Priority Date/Time Associated Diagnosis Comments XR KNEE RIGHT 3 VIEWS Schedule Routine, Read Routine (OP Routine) 01/27/2024 2:07 PM CDT Right knee pain, unspecified chronicity XR KNEE LEFT 3 VIEWS Schedule Routine, Read Routine (OP Routine) 01/27/2024 2:07 PM CDT Left knee pain, unspecified chronicity documented in this encounter Results * XR Knee Right 3 View (01/27/2024 2:07 PM CDT) Anatomical Region Laterality Modality Lower Extremities, Knee Right Computed Radiography 01/27/2024 5:48 PM CDT Narrative 01/27/2024 5:50 PM CDT EXAM DESCRIPTION: XR KNEE LEFT 3 VIEWS; XR KNEE RIGHT 3 VIEWS REASON FOR STUDY: pain ?? Bilateral lateral knee pain x 2 wks, L>R, NKI ? FINDINGS: Three views each knee submitted without comparison. No acute fractures are identified. ??There is moderate left and severe right patellofemoral predominant bilateral knee osteoarthritis. ??Alignment is normal. ??Small left knee effusion is present. ??There is no right knee effusion. ??Arterial atherosclerosis is noted. IMPRESSION: Moderate left and severe right patellofemoral predominant bilateral knee osteoarthritis. Small left knee effusion. THIS IS AN ELECTRONICALLY VERIFIED FINAL REPORT 01/27/2024 5:50 PM - Electronically signed by ??Julius Lopez M.D. D: ??01/27/2024 5:50 PM T: Report ID: [id number] Reading Location: ??[id number] Procedure Note Julius Lopez MD - 01/27/2024 EXAM DESCRIPTION: XR KNEE LEFT 3 VIEWS; XR KNEE RIGHT 3 VIEWS REASON FOR STUDY: pain Bilateral lateral knee pain x 2 wks, L>R, NKI FINDINGS: Three views each knee submitted without comparison. No acute fractures are identified. There is moderate left and severeright patellofemoral predominant bilateral knee osteoarthritis. Alignment is normal. Small left knee effusion is present. There is no right knee effusion. Arterial atherosclerosis is noted. IMPRESSION: Moderate left and severe right patellofemoral predominant bilateral knee osteoarthritis. Small left knee effusion. THIS IS AN ELECTRONICALLY VERIFIED FINAL REPORT 01/27/2024 5:50 PM - Electronically signed by Julius Lpoez M.D. T: Report ID: [id number] Reading Location: [id number] Gayle THACKER IMG XR PROCEDURES Final R esult * XR Knee Left 3 View (01/27/2024 2:07 PM CDT) Anatomical Region Laterality Modality Lower Extremities, Knee Left Computed Radiography 01/27/2024 5:48 PM CDT Narrative 01/27/2024 5:50 PM CDT EXAM DESCRIPTION: XR KNEE LEFT 3 VIEWS; XR KNEE RIGHT 3 VIEWS REASON FOR STUDY: pain ?? Bilateral lateral knee pain x 2 wks, L>R, NKI ? FINDINGS: Three views each knee submitted without comparison. No acute fractures are identified. ??There is moderate left and severe right patellofemoral predominant bilateral knee osteoarthritis. ??Alignment is normal. ??Small left knee effusion is present. ??There is no right knee effusion. ??Arterial atherosclerosis is noted. IMPRESSION: Moderate left and severe right patellofemoral predominant bilateral knee osteoarthritis. Small left knee effusion. THIS IS AN ELECTRONICALLY VERIFIED FINAL REPORT 01/27/2024 5:50 PM - Electronically signed by ??Julius Lopez M.D. D: ??01/27/2024 5:50 PM T: Report ID: [id number] Reading Location: ??[id number] Procedure Note Julius Lopez MD - 01/27/2024 EXAM DESCRIPTION: XR KNEE LEFT 3 VIEWS; XR KNEE RIGHT 3 VIEWS REASON FOR STUDY: pain Bilateral lateral knee pain x 2 wks, L>R, NKI FINDINGS: Three views each knee submitted without comparison. No acute fractures are identified. There is moderate left and severeright patellofemoral predominant bilateral knee osteoarthritis. Alignment is normal. Small left knee effusion is present. There is no right knee effusion. Arterial atherosclerosis is noted. IMPRESSION: Moderate left and severe right patellofemoral predominant bilateral knee osteoarthritis. Small left knee effusion. THIS IS AN ELECTRONICALLY VERIFIED FINAL REPORT 01/27/2024 5:50 PM - Electronically signed by Julius Lopez M.D. T: Report ID: [id number] Reading Location: [id number] Gay[facility] TH[facility] IMG XR PROCEDURES Final R esult documented in this encounter Visit Diagnoses Diagnosis Left knee pain, unspecified chronicity Right knee pain, unspecified chronicity documented in this encounter Care Teams Basting Marker Relationship Specialty Start Date End Date Nickie Negron MD [address] [facility] [address] [place] [address] PCP - General 01/13/19 documented as of this encounter
--- OUTSIDE RECORDS SUMMARY | 2024-10-27 10:53 | XMS_ITS | Encounter Summary ---
Author Organization [facility] Healthcare Address [address] [place] [address] Care Team Providers Care Library Acquisitions Technician Name Role Phone Nickie Negron MD Primary Care Provider +1- [phone] Encounter Details Date Type Department Care Team (Late st Contact Info) Description 08/27/2023 Orders Only [facility] Nephrology at [address] [place] [address] Provider, MD Js [address] [place], [place] [id number] Social History Tobacco Use Types Packs/Day Years [...] of Binge Drinking Not on file 07/29 Sex and Gender Information Value Date Recorded Sex Assigned at Not on file 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 Gender Identity Not on file Sexual Orientation Not on file documented as of this encounter Plan of Treatment Not on file documented as of this encounter Procedures Procedure Name Priority Date/Time Associated Diagnosis Comments CBC WITHOUT DIFFERENTIAL Routine 023 1:26 PM CDT documented in this encounter Results * CBC without differential (08/23/2023 1:26 PM CDT) Blood us Historical Provider LAB BLOOD ORDERABLES Shruthi l Result documented in this encounter Visit Diagnoses Not on filedocumented in this encounter Care Teams Library Acquisitions Technician Relationship Specialty Start Date End Date Nickie Negron MD [address] [facility] [address] [place] [address] PCP - General 01/13/19 documented as of this encounter
--- OUTSIDE RECORDS SUMMARY | 2024-10-27 10:53 | XMS_ITS | Encounter Summary ---
Author Organization [facility] Healthcare Address [address] [place] [address] Care Team Providers Care Hydrologist Name Role Phone Nickie Negron MD Primary Care Provider [phone] Reason for Referral * Procedure (Routine) - Authorized Specialty Diagnoses / Procedures Referred By Contac t Referred To Contact Diagnoses Arthritis of glenohumeral joint Procedures Large Joint (Hip, Knee, Shoulder) Injection: L glenohumeral Gayle Lawson PA [address] [facility] [address] [place] [address] [place] [phone] Phone: tel: fax: [facility] Referral ID Status Reason Start Date Expiration Date V isits Requested Visits Authorized [id number] Authorized 01/13/2024 02/11/2025 1 1 * Procedure (Routine) - Authorized Specialty Diagnoses / Procedures Referred By Contac t Referred To Contact Diagnoses Arthritis of glenohumeral joint Procedures Large Joint (Hip, Knee, Shoulder) Injection: R glenohumeral Gayle Lawson PA [address] [facility] [address] [place] [address] [place] [phone] Phone: tel: fax: [facility] Referral ID Status Reason Start Date Expiration Date V isits Requested Visits Authorized [id number] Authorized 01/13/2024 02/11/2025 1 1 * Diagnostic Imaging (Routine) - Closed Specialty Diagnoses / Procedures Referred By Roula mcmillan Referred To Contact Diagnoses Bilateral shoulder pain, unspecified chronicity Procedures XR Shoulder Left 2 or More Views Gayle Lawson PA [address] [place] [phone] Phone: tel: fax: [facility] [address] [place] [phone] Referral ID Status Reason Start Date Expiration Date Visits Re quested Visits Authorized [id number] Closed 01/13/2024 02/11/2025 1 1 Reason for Visit * Reason Comments Pain Pain * Consultation (Routine) - Closed Specialty Diagnoses / Procedures Referred By Roula mcmillan Referred To Contact Orthopedic Surgery Diagnoses Left shoulder pain, unspecified chronicity Nickie Negron MD [address] [place] [address] [address] [place] [address] Phone: tel: fax: [facility] Orthopedics and Sports Medicine [address] [place] [phone] Phone: tel: fax: Referral ID Status Reason Start Date Expiration Date V isits Requested Visits Authorized [id number] Closed Specialty Services Required 10/08/2023 11/06/2024 1 1 Encounter Details Date Type Department Care Team (Late st Contact Info) Description 01/13/2024 2:00 PM CDT Office Visit [facility] Medical [facility] Orthopedics and Sports Medicine [address] [place] [phone] Gayle Lawson PA [address] [place] [phone] Bilateral shoulder pain, unspecified chronicity (Primary Dx); Left shoulder pain, unspecified chronicity; Arthritis of glenohumeral joint Social History Tobacco Use Types Packs/Day Years [...] on file Legal Sex Male 5:49 AM [employer] Gender Identity Not on file Sexual Orientation Not on file documented as of this encounter Last Filed Vital Signs Vital Sign Reading Time Taken Comments Blood Pressure - - Pulse - - Temperature - - Respiratory Rate - - Oxygen Saturation - - Inhaled Oxygen Concentration - - Weight 70.3 kg (155 lb) 01/13/2024 2:13 PM CDT Height 160 cm (5' 3 ) 01/13/2024 2:13 PM CDT Body Mass Index 27.46 01/13/2024 2:13 PM CDT documented in this encounter Progress Notes * Gayle Lawson PA - 01/13/2024 2:00 PM CDTAssociated Order(s): Large Joint (Hip, Knee, Shoulder) Injection: R glenohumeral; Large Joint (Hip,Knee, Shoulder) Injection: L glenohumeral Post-Procedure Diagnose(s): Arthritis of glenohumeral joint Images from the original note were not included. NEW PATIENT VISIT CHIEF COMPLAINT Chief Complaint Patient presents with Left Shoulder - Pain Right Shoulder - Pain HISTORY OF PRESENT ILLNESS Julius Andrade is a pleasant 73 y.o. male presenting with bilateral shoulder pain that has been present for many years, but has worsened recently. He has not had any previous treatments for his shoulder pain. He takes Tylenol with mild relief. He is unable to take anti-inflammatories due to blood thinners. He has limited range of motion secondary to pain. He denies falls resulting in increasedshoulder pain. He denies neck pain, numbness, tingling, and radicular pain. He does have weakness in the bilateral arms, but states he has been weak for a while due to deconditioning. He denies any further complaints. PAST MEDICAL HISTORY Past Medical History: Diagnosis Date Asthma Celiac sprue Chronic kidney disease, stage III (moderate) (HCC) Coronary artery disease Crohn's colitis (CMS/HCC) (HCC) DJD (degenerative joint disease) GERD (gastroesophageal reflux disease) Hyperlipidemia Hypertension Hypokalemia Hypomagnesemia Hypophosphatemia Hypothyroidism PAST SURGICAL HISTORY Past Surgical History: Procedure Laterality Date ATHERECTOMY Left 05/04/2015 popliteal CARDIAC CATHETERIZATION stent COLONOSCOPY W/ BIOPSIES 04/13/2016 NECK SURGERY 10/22/2011 Neck fracture UPPER GASTROINTESTINAL ENDOSCOPY MEDICATIONS Current Outpatient Medications: acetaminophen (TYLENOL) 500 mg tablet, Take 1 tablet (500 mg total) by mouth every 8 (eight) hours as needed, Disp: , Rfl: albuterol HFA (PROVENTIL HFA,VENTOLIN HFA,PROAIR HFA) 90 mcg/actuation inhaler, Inhale 2 puffs every 8 (eight) hours as needed, Disp: , Rfl: Asacol HD 800 mg EC tablet, Take 1 tablet (800 mg total) by mouth 2 (two) times a day, Disp: , Rfl: aspirin 81 mg enteric coated tablet, Take 1 tablet (81 mg total) by mouth daily, Disp: , Rfl: buPROPion XL (WELLBUTRIN XL) 150 mg 24 hr tablet, Take 1 tablet (150 mg total) by mouth daily, Disp: , Rfl: carvediloL (COREG) 3.125 mg tablet, Take 1 tablet (3.125 mg total) by mouth 2 (two) times a day with meals, Disp: , Rfl: cholecalciferol (VITAMIN D-3) 5,000 unit tablet, Take 1 tablet (5,000 Units total) by mouth daily, Disp: , Rfl: cholestyramine (QUESTRAN) 4 gram powder, Take 1 packet (4 g total) by mouth nightly as needed, Disp: , Rfl: cilostazol (PLETAL) 50 mg tablet, Take 1 tablet (50 mg total) by mouth 2 (two) times a day, Disp: ,Rfl: clopidogreL (PLAVIX) 75 mg tablet, Take 1 tablet (75 mg total) by mouth daily, Disp: , Rfl: cyanocobalamin, vitamin B-12, 5,000 mcg tablet, sublingual, Place 5,000 mcg under the tongue daily,Disp: , Rfl: diclofenac sodium 3 % gel, Apply 1 Application topically, Disp: , Rfl: fluticasone propionate (FLONASE) 50 mcg/actuation nasal spray, Administer 1 spray into each nostrildaily as needed, Disp: , Rfl: folic acid (FOLVITE) 1 mg tablet, Take 1 tablet (1 mg total) by mouth daily, Disp: , Rfl: levothyroxine (SYNTHROID) 150 mcg tablet, Take 1 tablet (150 mcg total) by mouth every morning, Disp: , Rfl: pantoprazole DR (PROTONIX) 40 mg EC tablet, Take 1 tablet (40 mg total) by mouth 2 (two) times a day before breakfast and dinner, Disp: 60 tablet, Rfl: 0 polysaccharide iron complex (NU-IRON) 150 mg iron capsule, Take 1 capsule (150 mg total) by mouth every other day, Disp: , Rfl: pravastatin (PRAVACHOL) 10 mg tablet, Take 1 tablet (10 mg total) by mouth nightly, Disp: , Rfl: sodium bicarbonate 650 mg tablet, Take 1 tablet (650 mg total) by mouth 3 (three) times a day, Disp: 1000 tablet, Rfl: 3 triamcinolone (KENALOG) 0.1 % cream, Apply topically 2 (two) times a day Feet and legs, Disp: , Rfl: vit C,P-Fq-gnsfp-lutein-zeaxan (PreserVision AREDS-2) 250-90-40-1 mg capsule, Take 1 capsule by mouth every 12 hours, Disp: , Rfl: tiZANidine (ZANAFLEX) 4 mg tablet, daily (Patient not taking: Reported on 09/26/2022), Disp: , Rfl: VIAGRA 50 mg tablet, Take 1 tablet (50 mg total) by mouth as needed (Patient not taking: Reported on 01/13/2024), Disp: , Rfl: ALLERGIES Allergies Allergen Reactions Gluten Lactose Stomach upset SOCIAL HISTORY Social History Tobacco Use Smoking status: Former Current packs/day: 0.00 Types: Cigarettes Quit date: 2011 Years since quittin.2 Smokeless tobacco: Never Substance and Sexual Activity Drug use: Not Currently Sexual activity: Defer Alcohol Use: Not At Risk (08/23/2023) AUDIT-C Frequency of Alcohol Consumption: Never Average Number of Drinks: Not on file Frequency of Binge Drinking: Not on file FAMILY HISTORY Family History Problem Relation Age of Onset Cerebral aneurysm Father Family history of cerebral aneurysm - (Added by TW Conv) Hypertension Other REVIEW OF SYSTEMS Review of Systems Constitutional: Positive for activity change. Musculoskeletal: Positive for arthralgias and myalgias. Negative for joint swelling. PHYSICAL EXAMINATION Vitals Ht 160 cm (5' 3 ) Wt 70.3 kg (155 lb) BMI 27.46 kg/m?? Right shoulder Inspection Erythema: absent Edema: absent Effusion: absent Swelling: absent Skin temperature: normal Atrophy: absent AC joint deformity: absent Scapular winging: absent Abrasion: absent Surgical scar/wound: absent. Scapulothoracic motion: normal Palpation The patient has normal palpation of the right shoulder. Range of motion The patient has pain with range of motion of the right shoulder. Stability Th patient has normal stability of the right shoulder. Strength The patient has 5/5 strength throughout the right shoulder. Neurovascular The patient has normal vascular on the right side of his body. He has normal sensation on the right side of his body. Tests Apprehension: negative Belly press: negative Cross arm: negative Hawkin's test: positive Impingement signs: positive Lv's: negative Lift-off: negative Neer's: positive Speed's: negative Left shoulder Inspection Erythema: absent Edema: absent [...] Large Joint (Hip, Knee, Shoulder) Injection: R glenohumeral Performed by: Gayle Lawson PA Authorized by: Gayle Lawson PA Large Joint Injection/Aspiration: Consent Given by: Patient Site marked: the procedure site was marked Timeout: prior to procedure the correct patient, procedure, and site was verified Verbal consent obtained: Yes Supporting Documentation: Indications: Pain Procedure Details: Location: Shoulder Site: R glenohumeral Prep: patient was prepped using a [...] with no immediate complications REVIEW OF X-RAYS/STUDIES Radiographs of the bilateral shoulder were reviewed, which reveal Moderate degenerative changes of the glenohumeral and acromioclavicular joints with decreased joint space, right worse than left. No acute fracture or dislocation noted. DIAGNOSIS Diagnoses and all orders for this visit: Bilateral shoulder pain, unspecified chronicity (Primary) - XR Shoulder Left 2 or More Views; Future - XR Shoulder Right 2 or More Views; Future Left shoulder pain, unspecified chronicity - Ambulatory referral to Orthopedic Surgery Arthritis of glenohumeral joint PLAN I explained the nature of the patient's condition in detail, including treatment options. At this time, I provided Mr. Andrade with an intraarticular steroid injection into the bilateral glenohumeraljoint under sterile conditions today, which He tolerated [...] Procedure Name Priority Date/Time Associated Diagnosis Comments [place] ARTHROCENTESIS ASPIR&/INJ MAJOR JT/BURSA W/O US Routine 01/13/2024 2:00 PM CDT Arthritis of glenohumeral joint [place] ARTHROCENTESIS ASPIR&/INJ MAJOR JT/BURSA W/O US Routine 01/13/2024 2:00 PM CDT Arthritis of glenohumeral joint documented in this encounter Results * XR [...] are identified. ??There is mild left and ljyo-mh-yztiwmex right bilateral glenohumeral joint osteoarthritis. ??There is mild left and moderate right bilateral acromioclavicular joint osteoarthritis. ?? There is superior subluxation of the right humeral head with narrowing of the subacromial space. IMPRESSION: Kqge-kh-mahweoyi right rotator cuff arthropathy. Mild left glenohumeral joint osteoarthritis. 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 THIS IS AN ELECTRONICALLY VERIFIED FINAL REPORT 01/13/2024 9:04 PM - Electronically signed by ??Julius Lopez M.D. D: ??01/13/2024 9:04 PM T: Report ID: [id number] Reading Location: ??[id number] Procedure Note Julius Lopez MD - 01/13/2024 EXAM DESCRIPTION: XR SHOULDER LEFT 2 OR MORE VIEWS; XR SHOULDER RIGHT 2 OR MORE VIEWS REASON FOR STUDY: left shoulder pain right shoulder pain Bilateral shoulder pain with ROM, L>R x 1 yr, NKI FINDINGS: Three views each shoulder submitted without comparison. No acute fractures are identified. There is mild left ieqcdnz-vz-goedtpgc right bilateral glenohumeral joint osteoarthritis. There is mild left and moderate right bilateral acromioclavicular joint osteoarthritis. Thereis superior subluxation of the right humeral head with narrowing of the subacromial space. IMPRESSION: Ikif-va-lfbatuav right rotator cuff arthropathy. Mild left glenohumeral joint osteoarthritis. Mild left and moderate right bilateral acromioclavicular jointosteoarthritis. THIS IS AN ELECTRONICALLY VERIFIED FINAL REPORT 01/13/2024 9:04 PM - Electronically signed by Julius Lopez M.D. T: Report ID: [id number] Reading Location: [id number] Gayle THACKER IMG XR PROCEDURES Final R [...] are identified. ??There is mild left and vbrj-fp-ztlkvijj right bilateral glenohumeral joint osteoarthritis. ??There is mild left and moderate right bilateral acromioclavicular joint osteoarthritis. ?? There is superior subluxation of the right humeral head with narrowing of the subacromial space. IMPRESSION: Hkcg-wy-gtfjoveb right rotator cuff arthropathy. Mild left glenohumeral joint osteoarthritis. 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 THIS IS AN ELECTRONICALLY VERIFIED FINAL REPORT 01/13/2024 9:04 PM - Electronically signed by ??Julius Lopez M.D. D: ??01/13/2024 9:04 PM T: Report ID: [id number] Reading Location: ??[id number] Procedure Note Julius Lopez MD - 01/13/2024 EXAM DESCRIPTION: XR SHOULDER LEFT 2 OR MORE VIEWS; XR SHOULDER RIGHT 2 OR MORE VIEWS REASON FOR STUDY: left shoulder pain right shoulder pain Bilateral shoulder pain with ROM, L>R x 1 yr, NKI FINDINGS: Three views each shoulder submitted without comparison. No acute fractures are identified. There is mild left embybgu-lb-yisqpnwn right bilateral glenohumeral joint osteoarthritis. There is mild left and moderate right bilateral acromioclavicular joint osteoarthritis. Thereis superior subluxation of the right humeral head with narrowing of the subacromial space. IMPRESSION: Tzwt-jm-ncuiwxbm right rotator cuff arthropathy. Mild left glenohumeral joint osteoarthritis. Mild left and moderate right bilateral acromioclavicular jointosteoarthritis. THIS IS AN ELECTRONICALLY VERIFIED FINAL REPORT 01/13/2024 9:04 PM - Electronically signed by Julius Lopez M.D. T: Report ID: [id number] Reading Location: [id number] Gayle THACKER IMG XR PROCEDURES Final R esult * [place] ARTHROCENTESIS ASPIR&/INJ MAJOR JT/BURSA W/O US (01/13/2024 2:00 PM CDT) Narrative Gayle Lawson PA - 01/13/2024 2:00 PM CDT Gayle Lawson PA ? 01/13/2024 ??3:04 PM Large Joint (Hip, Knee, Shoulder) Injection: L [...] IN CLINIC/BEDSIDE ORDERAB LES Final Result * [place] ARTHROCENTESIS ASPIR&/INJ MAJOR JT/BURSA W/O US (01/13/2024 2:00 PM CDT) Narrative Gayle Lawson PA - 01/13/2024 2:00 PM CDT Gayle Lawson PA ? 01/13/2024 ??3:04 PM Large Joint (Hip, Knee, Shoulder) Injection: R glenohumeral Performed by: Gayle Lawson PA Authorized by: Gayle Lawson PA ?? Large Joint Injection/Aspiration: ??Consent Given by: ??Patient ??Site marked: the procedure site was marked ?Timeout: prior to procedure the correct patient, procedure, and site was verified ?Verbal consent obtained: Yes ?? Supporting Documentation: ??Indications: ??Pain Procedure Details: ??Location: ??Shoulder ??Site: ??R glenohumeral ??Prep: patient was prepped using a clean technique ?Needle Size: ??22 G ??Approach: ??Posterior ??Medications: ??1 mL lidocaine 20 mg/mL (2 %); 40 mg triamcinolone 40 mg/mL ??Patient tolerance: ??Patient tolerated the procedure well with no immediate complications Gayle THACKER IN CLINIC/BEDSIDE ORDERAB LES Final Result documented in this encounter Visit Diagnoses Diagnosis Bilateral shoulder pain, unspecified chronicity- Primary Left shoulder pain, unspecified chronicity Arthritis of glenohumeral joint Bilateral shoulder pain, unspecified chronicity documented in this encounter Administered Medications Inactive Administered Medications - up to 3 most recent administrations Medication Order MAR Action Action Date Dose Rate Site lidocaine (XYLOCAINE) 20 mg/mL (2 %) injection 1 mL 1 mL, other, One-Time Injection, Starting on Sat01/13/24 at 1400, For 1 dose, Indications: Administration of Local AnesthesiaIndications:Admini stration of Local Anesthesia Given 01/13/2024 2:00 PM CDT 1 mL Right Shoulder lidocaine (XYLOCAINE) 20 mg/mL (2 %) injection 1 mL 1 mL, other, One-Time Injection, Starting on Sat01/13/24 at 1400, For 1 dose, Indications: Administration of Local AnesthesiaIndications:Admini stration of Local Anesthesia Given 01/13/2024 2:00 PM CDT 1 mL Left Shoulder triamcinolone (KENALOG) 40 mg/mL injection 40 mg 40 mg, intra-articular, One-Time Injection, Starting on Sat01/13/24 at 1400, For 1 doseIndications:Arthritis of glenohumeral joint Given 01/13/2024 2:00 PM CDT 40 mg Right Shoulder triamcinolone (KENALOG) 40 mg/mL injection 40 mg 40 mg, intra-articular, One-Time Injection, Starting on Sat01/13/24 at 1400, For 1 doseIndications:Arthritis of glenohumeral joint Given 01/13/2024 2:00 PM CDT 40 mg Left Shoulder documented in this encounter Discontinued Medications Medication Sig Discontinue Reason Start Date End Da te levothyroxine (SYNTHROID) 125 mcg tablet Take 1 tablet (125 mcg total) by mouth [employer] before breakfast Dose adjustment 01/13/2024 documented as of this encounter Historical Medications * This list may reflect changes made after this encounter. levothyroxine (SYNTHROID) 175 mcg tablet Take 1 tablet (175 mcg total) by mouth every morning 01/02/2024 diclofenac sodium 3 % gel Apply 1 Application topically 4 (four) times a day as needed (pain) added in this encounter Orders Outpatient Referral Count Last Ordered Date Fir st Ordered Date AMB REFERRAL TO ORTHOPEDIC SURGERY 1 2023 documented in this encounter Care Teams Hydrologist Relationship Specialty Start Date End Date Nickie Negron MD [address] [facility] [address] [place] [address] PCP - General 01/13/19 documented as of this encounter
--- OUTSIDE RECORDS SUMMARY | 2024-10-27 10:53 | XMS_ITS | Encounter Summary ---
Author Organization [facility] Healthcare Address [address] [place] [address] Care Team Providers Care Mold Maker Name Role Phone Nickie Negron MD Primary Care Provider +1- [phone] Reason for Referral * Diagnostic Imaging (Routine) - Authorized Specialty Diagnoses / Procedures Referred By Roula mcmillan Referred To Contact Diagnoses Bilateral carotid artery stenosis Procedures US Carotids Duplex Bilateral Solomon Martinez MD [address] [place] [address] [address] [address] Phone: tel: fax: [facility] Medical Office Building [address] [place] [phone] Referral ID Status Reason Start Date Expiration Date V isits Requested Visits Authorized [id number] Authorized 02/27/2024 03/28/2025 1 1 * Diagnostic Imaging (Routine) - Authorized Specialty Diagnoses / Procedures Referred By Roula mcmillan Referred To Contact Diagnoses Aftercare following surgery of the circulatory system Procedures US Arterial Doppler Lower Extremity Bilateral Solomon Martinez MD [address] [place] [address] [address] [address] Phone: tel: fax: [facility] Medical Office Building [address] [place] [phone] Referral ID Status Reason Start Date Expiration Date V isits Requested Visits Authorized [id number] Authorized 02/27/2024 03/28/2025 1 1 Reason for Visit * Reason Comments Follow-up 1yr Carotid stenosis PVD Encounter Details Date Type Department Care Team (Late st Contact Info) Description 02/27/2024 10:45 AM CDT Office Visit [facility] Vascular and Vein Surgery [address] [facility] [address] [place] [address] Silvia Leary PA [address] [facility] [address] [place] [address] Peripheral vascular disease (CMS/HCC) (HCC) (Primary Dx); Bilateral carotid artery stenosis; Aftercare following surgery of the circulatory system; Mixed hyperlipidemia Social History Tobacco Use Types Packs/Day Years [...] on file 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 Gender Identity Not on file Sexual Orientation Not on file documented as of this encounter Last Filed Vital Signs Vital Sign Reading Time Taken Comments Blood Pressure 148/84 02/27/2024 10:49 AM CDT Pulse 88 02/27/2024 10:49 AM CDT Temperature - - Respiratory Rate - - Oxygen Saturation - - Inhaled Oxygen Concentration - - Weight 70.3 kg (155 lb) 02/27/2024 10:49 AM CDT Height 160 cm (5' 3 ) 02/27/2024 10:49 AM CDT Body Mass Index 27.46 02/27/2024 10:49 AM CDT documented in this encounter Progress Notes * Silvia Leary PA - 02/27/2024 10:45 AM CDT Course Subjective/Objective Patient ID: Julius Andrade is a 73 y.o. male. Chief Complaint Follow-up (1yr Carotid stenosis/PVD ) HPI Patient is a 73 y.o. male history of lower extremity arterial occlusive disease status post atherectomy balloon angioplasty left popliteal artery on 05/04/2015. He is also being followed for a chronically occluded left carotid artery, widely patent right internal carotid artery. Patient presents today for routine follow- up, denies issues or concerns regarding claudication, ischemic rest pain, ulce rations or lesions to his bilateral lower extremities. Otherwise patient states they are in their normal state of health and has no new issues or concerns at this time Current Outpatient Medications: acetaminophen (TYLENOL) 500 mg [...] Feet and legs, Disp: , Rfl: vit C,B-Vf-tgxsb-lutein-zeaxan (PreserVision AREDS-2) 250-90-40-1 mg capsule, Take 1 capsule by mouth every 12 hours, Disp: , Rfl: tiZANidine (ZANAFLEX) 4 mg tablet, daily (Patient not taking: Reported on 09/26/2022), Disp: , Rfl: VIAGRA 50 mg tablet, Take 1 tablet (50 mg total) by mouth as needed (Patient not taking: Reported on 01/13/2024), Disp: , Rfl: Allergies Allergen Reactions Gluten Lactose Stomach upset Past Medical History: Diagnosis Date Asthma Celiac [...] Types: Cigarettes Quit date: 2011 Years since quittin.3 Smokeless tobacco: Never Substance and Sexual Activity Drug use: Not Currently Sexual activity: Defer Alcohol Use: Not At Risk (08/23/2023) AUDIT-C Frequency of Alcohol Consumption: Never Average Number of Drinks: Not on file Frequency of Binge Drinking: Not on file ROS Constitutional: Negative for activity change, chills, diaphoresis and fever. Eyes: No visual disturbances. ENT: Negative for sore throat, tooth ache, ear ache. Respiratory: Negative for cough and shortness of breath. Cardiovascular: Negative for chest pain, palpitations and leg swelling. Gastrointestinal: Negative for abdominal pain, constipation, diarrhea, nausea and vomiting. Genitourinary: Negative for flank pain. Musculoskeletal: Negative for arthralgias, back pain, edema. Skin: Negative for wounds or ulcerations Neurological: Negative for dizziness, syncope, facial asymmetry and speech difficulty. PE Constitutional: Patient is oriented to person, place, and time. Pateint appears well-developed and well-nourished. No distress. Head: Normocephalic and atraumatic. Neck: Normal range of motion. Neck supple. Carotid bruit is not present. Cardiovascular: Normal rate and regular rhythm. Pulmonary/Chest: Effort normal and breath sounds normal. No accessory muscle usage. Abdominal: Soft. Bowel sounds are normal. Patient exhibits no distension and no mass. There is no tenderness. Extremities: Femoral, popliteal and distal pulses palpable bilaterally Neurological: Cranial nerves 2-12 intact. Strength and sensation intact bilaterally. Skin: Warm and dry. No rashes. No discoloration. Psychiatric: Appropriate mood and affect. Imaging The following diagnostic imaging visualized and reviewed by myself. Carotid duplex performed on 02/27/2024 reveals chronically occluded left internal carotid artery, right internal carotid artery less than 50% stenosis. Bilateral lower extremity Doppler performed on 02/27/2024 reveals triphasic femoral, right popliteal artery waveforms. Left popliteal and distal waveforms biphasic. ABIs falsely elevated greater than1 bilaterally Assessment/Plan Diagnoses and all orders for this visit: Peripheral vascular disease (CMS/HCC) (HCC) (I73.9) (Primary) Comments: Asymptomatic. Continue aspirin Plavix regimen. Follow-up 1 year with lower extremity arterial Doppler. Bilateral carotid artery stenosis (I65.23) Comments: Chronically occluded left internal carotid artery, unremarkable right internal carotid artery. Follow-up 1 year with repeat carotid duplex Orders: - US Carotids Duplex Bilateral; Future Aftercare following surgery of the circulatory system (Z48.812) - US Arterial Doppler Lower Extremity Bilateral; Future Mixed hyperlipidemia (E78.2) Comments: Pravastatin Silvia Leary PA-C Cosigned by Solomon Martinez MD at 02/28/2024 8:41 AM CDT documented in this encounter Plan of Treatment Scheduled Orders Name Type Priority Associated Diagnoses Orde r Schedule US Arterial Doppler Lower Extremity Bilateral Imaging Schedule Routine, Read Routine (OP Routine) Aftercare following surgery of the circulatory system Expected: 02/26/2025, Expires: 08/29/2025 US Carotids Duplex Bilateral Imaging Schedule Routine, Read Routine (OP Routine) Bilateral carotid artery stenosis Expected: 02/26/2025, Expires: 08/29/2025 documented as of this encounter Visit Diagnoses Diagnosis Peripheral vascular disease (CMS/HCC) (HCC)- Primary Unspecified peripheral vascular disease Bilateral carotid artery stenosis Occlusion and stenosis of carotid artery without mention of cerebral infarction Aftercare following surgery of the circulatory system Aftercare following surgery of the circulatory system, NEC Mixed hyperlipidemia documented in this encounter Care Teams Mold Maker Relationship Specialty Start Date End Date Nickie Negron MD [address] [address] PCP - General 01/13/19 documented as of this encounter
--- OUTSIDE RECORDS SUMMARY | 2024-10-27 10:53 | XMS_ITS | Encounter Summary ---
Author Organization [facility] Healthcare Address [address] [place] [address] Care Team Providers Care It Communications Specialist Name Role Phone Nickie Negron MD Primary Care Provider [phone]- [phone] Reason for Visit * Reason Comments Chronic Kidney Disease - Follow Up Visit Encounter Details Date Type Department Care Team (Late st Contact Info) Description 08/23/2023 9:30 AM CDT Office Visit [facility] Medical Group Nephrology at [address] [address] Shree Gutiérrez MD [address] [place] [id number] Stage 3b chronic kidney disease (HCC) (Primary Dx); Metabolic acidosis; Crohn's disease of small intestine with other complication (HCC); ASVD (arteriosclerotic vascular disease); Anemia in stage 3b chronic kidney disease (HCC) Social History Tobacco Use Types Packs/Day Years [...] on file 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 Gender Identity Not on file Sexual Orientation Not on file documented as of this encounter Last Filed Vital Signs Vital Sign Reading Time Taken Comments Blood Pressure 155/88 08/23/2023 9:29 AM CDT Pulse 71 08/23/2023 9:29 AM CDT Temperature 36.5 ??C (97.7 ??F) 08/23/2023 9:29 AM CD T Respiratory Rate - - Oxygen Saturation - - Inhaled Oxygen Concentration - - Weight 69.4 kg (153 lb) 08/23/2023 9:29 AM CDT Height 160 cm (5' 3 ) 08/23/2023 9:29 AM CDT Body Mass Index 27.1 08/23/2023 9:29 AM CDT documented in this encounter Progress Notes * Shree Gutiérrez MD - 08/23/2023 9:30 AM CDT Images from the original note were not included. Subjective/Objective Patient ID: Julius Andrade is a 72 y.o. male. Chief Complaint Chronic Kidney Disease - Follow Up Visit HPI This is a patient with a history of acute kidney failure in the setting of severe volume depletion along with significant electrolyte abnormalities. He has underlying Crohn's disease and celiac sprue. He also had dental extractions prior to his initial episode with very poor p.o. intake and presented with a BUN of 130 and a creatinine of 18 and required brief dialysis but recovered function thereafter with IV hydration and serum creatinine had been approximately 1.5 mg/dL. He presented again inJ2015 with a similar issue and a creatinine of 8. He responded again to IV fluid resuscitation. Last serum creatinine of 1.8, reports GI symptoms have been reasonable. Review of Systems Constitutional: Negative for appetite change and positive for fatigue. HENT: Negative. Eyes: Negative. Respiratory: Negative for cough, chest tightness and shortness of breath. Cardiovascular: Negative for chest pain, palpitations and leg swelling. Gastrointestinal: Negative for abdominal pain and nausea. Endocrine: Negative for polydipsia and polyuria. Genitourinary: Negative for decreased urine volume, difficulty urinating, dysuria, flank pain, frequency, hematuria and urgency. Musculoskeletal: Positive for arthralgias. Skin: Negative for color change and rash. Allergic/Immunologic: Negative. Neurological: Negative for dizziness, weakness and light-headedness. Hematological: Negative. Psychiatric/Behavioral: Negative. Current Outpatient Medications Medication Sig Dispense Refill acetaminophen (TYLENOL) 500 mg tablet Take 1 tablet (500 mg total) by mouth every 8 (eight) hours as needed albuterol HFA (PROVENTIL HFA,VENTOLIN HFA,PROAIR HFA) 90 mcg/actuation inhaler Inhale 2 puffs every8 (eight) hours as needed Asacol HD 800 mg EC tablet Take 1 tablet (800 mg total) by mouth 2 (two) times a day aspirin 81 mg enteric coated tablet Take 1 tablet (81 mg total) by mouth daily buPROPion XL (WELLBUTRIN XL) 150 mg 24 hr tablet Take 1 tablet (150 mg total) by mouth daily cholecalciferol (VITAMIN D-3) 5,000 unit tablet Take 1 tablet (5,000 Units total) by mouth daily cholestyramine (QUESTRAN) 4 gram powder Take 1 packet (4 g total) by mouth nightly as needed cilostazol (PLETAL) 50 mg tablet Take 1 tablet (50 mg total) by mouth 2 (two) times a day clopidogreL (PLAVIX) 75 mg tablet Take 1 tablet (75 mg total) by mouth daily cyanocobalamin, vitamin B-12, 5,000 mcg tablet, sublingual Place 5,000 mcg under the tongue daily fluticasone propionate (FLONASE) 50 mcg/actuation nasal spray Administer 1 spray into each nostril daily as needed folic acid (FOLVITE) 1 mg tablet Take 1 tablet (1 mg total) by mouth daily levothyroxine (SYNTHROID) 125 mcg tablet Take 1 tablet (125 mcg total) by mouth glass smoother before breakfast polysaccharide iron complex (NU-IRON) 150 mg iron capsule Take 1 capsule (150 mg total) by mouth every other day pravastatin (PRAVACHOL) 10 mg tablet Take 1 tablet (10 mg total) by mouth nightly sodium bicarbonate 650 mg tablet Take 1 tablet (650 mg total) by mouth 3 (three) times a day 1000 tablet 3 triamcinolone (KENALOG) 0.1 % cream Apply topically 2 (two) times a day Feet and legs VIAGRA 50 mg tablet Take 1 tablet (50 mg total) by mouth as needed vit C,J-Mr-gmcda-lutein-zeaxan (PreserVision AREDS-2) 250-90-40-1 mg capsule Take 1 capsule by mouth every 12 hours carvediloL (COREG) 3.125 mg tablet Take 3.125 mg by mouth 2 (two) times a day with meals (Patient not taking: Reported on 09/26/2022) pantoprazole DR (PROTONIX) 40 mg EC tablet Take 1 tablet (40 mg total) by mouth 2 (two) times a daybefore breakfast and dinner (Patient not taking: Reported on 09/26/2022) 60 tablet 0 tiZANidine (ZANAFLEX) 4 mg tablet daily (Patient not taking: Reported on 09/26/2022) No current facility-administered medications for this visit. Allergies Allergen Reactions Gluten Lactose Stomach upset Vitals BP 155/88 (BP Location: Left arm, Patient Position: Sitting) Pulse 71 Temp 36.5 ??C (97.7 ??F) (Temporal) Ht 160 cm (5' 3 ) Wt 69.4 kg (153 lb) BMI 27.10 kg/m?? Physical Exam Constitutional: Thin but in no acute distress. Head: Normocephalic and atraumatic. Eyes: EOM are normal. Neck: Normal range of motion. Cardiovascular: Normal rate and regular rhythm. Pulmonary/Chest: Effort normal and breath sounds normal. Abdominal: Soft. Bowel sounds are normal. Musculoskeletal: limited range of motion. No significant edema. Neurological: Alert and oriented to person, place, and time. Skin: Skin is warm and dry. Psychiatric: Normal mood and affect. Assessment/Plan Diagnoses and all orders for this visit: Stage 3b chronic kidney disease (HCC) (N18.32) (Primary) - PTH; Future - CBC with auto differential; Standing - Comprehensive metabolic panel; Future - Phosphorus; Future Metabolic acidosis (E87.20) Crohn's disease of small intestine with other complication (HCC) (K50.018) ASVD (arteriosclerotic vascular disease) (I70.90) Anemia in stage 3b chronic kidney disease (HCC) (N18.32, D63.1) - Iron profile w/ IBC; Future - Vitamin B12; Future CKD following episodes of acute kidney failure in the setting of severe volume depletion with underlying Crohn's disease. Serum creatinine remaining stable. Reports reasonable appetite. Blood pressure elevated in the office today which is unusual for him. He has not been monitoring at home but I asked him to begin to do so and notify the office if it remains above target. Continue sodium bicarbonate for metabolic acidosis. Ordering repeat labs with his next scheduled blood draw. documented in this encounter Plan of Treatment Scheduled Orders Name Type Priority Associated Diagnoses Orde r Schedule PTH Lab Routine Stage 3b chronic kidney disease (HCC) Expected: 08/23/2023, Expires: 08/23/2024 CBC with auto differential Lab Routine Stage 3b chronic kidney disease (HCC) 2 Occurrences starting 08/23/2023 until 08/23/2024 Comprehensive metabolic panel Lab Routine Stage 3b chronic kidney disease (HCC) Expected: 08/23/2023, Expires: 08/23/2024 Iron profile w/ IBC Lab Routine Anemia in stage 3b chronic kidney disease (HCC) Expected: 08/23/2023, Expires: 08/23/2024 Vitamin B12 Lab Routine Anemia in stage 3b chronic kidney disease (HCC) Expected: 08/23/2023, Expires: 08/23/2024 Phosphorus Lab Routine Stage 3b chronic kidney disease (HCC) Expected: 08/23/2023, Expires: 08/23/2024 documented as of this encounter Visit Diagnoses Diagnosis Stage 3b chronic kidney disease (HCC)- Primary Metabolic acidosis Acidosis Crohn's disease of small intestine with other complication (HCC) ASVD (arteriosclerotic vascular disease) Anemia in stage 3b chronic kidney disease (HCC) documented in this encounter Discontinued Medications Medication Sig Discontinue Reason Start Date End Da te cephalexin (KEFLEX) 500 mg capsule Take 1 capsule (500 mg total) by mouth every 6 (six) hours 02/04/2023 08/23/2023 documented as of this encounter Care Teams It Communications Specialist Relationship Specialty Start Date End Date Nickie Negron MD [address] [facility] [address] [place] [address] PCP - General 01/13/19 documented as of this encounter
--- OUTSIDE RECORDS SUMMARY | 2024-10-27 10:53 | XMS_ITS | Encounter Summary ---
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 documented in this encounter Plan of Treatment Not on file documented as of this encounter Visit Diagnoses Not on filedocumented in this encounter Care Teams Director Property Relationship Specialty Start Date End Date Nickie Negron MD [address] [address] PCP - General 01/13/19 documented as of this encounter
--- OUTSIDE RECORDS SUMMARY | 2024-10-27 10:53 | XMS_ITS | Encounter Summary ---
Author Organization [facility] Medical Group Address [address] [place] [address] Care Team Providers Care Team Cdl Driver Name Role Phone Nickie Negron MD Primary Care Provider +1- [phone] Encounter Details Date Type Department Care Team (Late st Contact Info) Description 02/26/2023 Orders Only [facility] Medical Group Nephrology at [address] [place] [address] Provider, MD Js [address] [place] [id number] Social History Tobacco Use Types Packs/Day Years Used Date Smoking Tobacco: Former Cigarettes Q uit: 2012 Smokeless Tobacco: Never Alcohol Use Standard Drinks/Week Comments Not Currently 0 (1 standard drink = 0.6 oz pur e alcohol) AUDIT-C Answer Date Recorded Q1: How often do you have a drink containing alcohol? Never 09/26/2022 Q2: How many drinks containi ng alcohol do you have on a typical day when you are drinking? Patient does not drink Q3: How often do you have si x or more drinks on one occasion? 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 Gender Identity Not on file Sexual Orientation Not on file documented as of this encounter Plan of Treatment Not on file documented as of this encounter Procedures Procedure Name Priority Date/Time Associated Diagnosis Comments CBC WITH AUTO DIFFERENTIAL Routine 02/22/2023 documented in this encounter Results * CBC with auto differential (02/22/2023) Blood us Historical Provider LAB BLOOD ORDERABLES Shruthi l Result documented in this encounter Visit Diagnoses Not on filedocumented in this encounter Care Teams Team Cdl Driver Relationship Specialty Start Date End Date Nickie Negron MD [address] [facility] [address] [place] [address] PCP - General 01/13/19 documented as of this encounter
--- OUTSIDE RECORDS SUMMARY | 2024-10-27 10:53 | XMS_ITS | Encounter Summary ---
Author Organization [facility] Healthcare Address [address] [place] [address] Care Team Providers Care Datastage Consultant Name Role Phone Nickie Negron MD Primary Care Provider [phone] Reason for Visit * Reason Comments Fall Encounter Details Date Type Department Care Team (Late st Contact Info) Description 05/29/2024 12:35 AM CDT - 05/29/2024 3:26 AM CDT Emergency [address] [address] Fall, initial encounter (Primary Dx); Head injury, initial encounter; Laceration of eyebrow and forehead, left, initial encounter; Carotid stenosis, left; Contusion of left elbow, initial encounter; Skin tear of elbow without complication, left, initial encounter Discharge Disposition: Discharge to home or self [...] on file Legal Sex Male 5:49 AM [employer] Gender Identity Not on file Sexual Orientation Not on file documented as of this encounter Last Filed Vital Signs Vital Sign Reading Time Taken Comments Blood Pressure 147/91 05/29/2024 3:00 AM CDT Pulse 86 05/29/2024 3:00 AM CDT Temperature 37 ??C (98.6 ??F) 05/28/2024 7:09 PM CDT Respiratory Rate 18 05/29/2024 2:45 AM CDT Oxygen Saturation 98% 05/29/2024 3:00 AM CDT Inhaled Oxygen Concentration - - Weight 69 kg (152 lb 1.9 oz) 05/28/2024 7:08 PM CDT Height 160 cm (5' 2.99 ) 05/28/2024 7:08 PM CDT Body Mass Index 26.95 05/28/2024 7:08 PM CDT documented in this encounter Discharge Instructions * Discharge Instructions* Itz Pandya PA - 05/29/2024 2:35 AM CDT Return to ER immediately for any new or worsening symptoms. Follow-up as recommended is mandatory. Sutures need to be removed in 5-7 days. Change bandages daily. Call your primary care provider in the morning for close follow-up. It is recommended you have anultrasound of your carotids to further assess CT findings today. You MUST follow up for further evaluation of all incidental abnormal radiographic and laboratory findings. Have your physician obtain records from this visit and address all the incidental abnormal findings. This may include final results of lab testing, cultures, final x-ray reports which may not have been available during the time of the visit. * Attachments The following attachments cannot be sent through Care Everywhere. * Head Injury (AfterCare(R) Instructions(ER/ED)) (Danish) * Laceration (AfterCare(R) Instructions(ER/ED)) (Danish) * Care For Your Stitches (AfterCare(R) Instructions(ER/ED)) (Danish) documented in this encounter Medications at Time [...] a day 1000 tablet 3 02/22/2023 vit C,H-Mf-smewp-lute in-zeaxan (PreserVision AREDS-2) 250-90-40-1 mg capsule Take [...] total) by mouth as needed 07/13/2019 4 vitamins A,C,B-mniy-qcnkpu (PreserVision AREDS) 4,296 mcg-226 mg-90 mg capsule 4 documented as of this encounter Discharge Disposition Disposition Code Departure Means Destination Comment s Discharge to home or self care documented in this encounter ED Notes * Jeniffer Rojas RN - 05/29/2024 2:33 AM CDT Pt's son Adrián contacted and given updates. Informed him that no fractures were found on the CTs and xrays done during ER visit. Also informed him that pt will need to follow up with his PCP in 5-7 days to get the stitches in his forehead removed. Son states he is available to come pick pt up when he's discharged. Jeniffer Rojas RN 05/29/24 0234 * Itz Pandya PA - 05/29/2024 12:48 AM CDT Images from the original note were not included. CHIEF COMPLAINT: Chief Complaint Patient presents with Fall HPI 2:36 AM Julius Andrade is a 73 y.o. male presenting to the ED c/o ground level fall prior to arrival. Patient states he tripped over his own feet and fell forward and hit his head. He denies loss of consciousness, visual changes, nausea, vomiting, neck pain, or any injury. Bruising and skin tearnoted to left elbow. Superficial laceration to left forehead. Left periorbital ecchymosis. Patient is unsure when his last tetanus vaccine was. He is on Plavix. History provided by patient PCP: Nickie Negron MD PAST MEDICAL HISTORY Past Medical History: Diagnosis [...] SURGERY 10/22/2011 Neck fracture UPPER GASTROINTESTINAL ENDOSCOPY FAMILY HISTORY Family History Problem Relation Age of Onset Cerebral aneurysm Father Family history of cerebral aneurysm - (Added by TW Conv) Hypertension Other MEDICATIONS GIVEN IN THE ED Medications acetaminophen (TYLENOL) tablet 975 mg (975 mg oral Given 05/28/24 1930) Tdap (BOOSTRIX) 2.5-8-5 Lf-mcg-Lf/0.5mL vaccine 0.5 mL (0.5 mL intramuscular Given 05/29/24 0116) lidocaine-EPINEPHrine (XYLOCAINE with EPI) 1 %-1:100,000 injection 10 mL (10 mL infiltration Given by Other 05/29/24 0144) CURRENT HOME MEDICATIONS No current facility-administered medications for this encounter. Current Outpatient Medications: acetaminophen (TYLENOL) 500 mg [...] by mouth every morning, Disp: , Rfl: lidocaine HCL 4 % cream, Apply 1 application twice a day by topical route., Disp: , Rfl: pantoprazole DR (PROTONIX) 40 [...] a day, Disp: 1000 tablet, Rfl: 3 tiZANidine (ZANAFLEX) 4 mg tablet, daily, Disp: , Rfl: triamcinolone (KENALOG) 0.1 % cream, Apply topically 2 (two) times a day Feet and legs, Disp: , Rfl: VIAGRA 50 mg tablet, Take 1 tablet (50 mg total) by mouth as needed, Disp: , Rfl: vit C,L-Fg-gfnmi-lutein-zeaxan (PreserVision AREDS-2) 250-90-40-1 mg capsule, Take 1 capsule by mouth every 12 hours, Disp: , Rfl: vitamins A,C,P-wswh-tjdhfk (PreserVision AREDS) 4,296 mcg-226 mg-90 mg capsule, , Disp: , Rfl: ALLERGIES Allergies Allergen Reactions Gluten Other (See comments) wheat Lactose Stomach upset SOCIAL HISTORY Social History Tobacco Use Smoking status: Former Current packs/day: 0.00 Types: Cigarettes Quit date: 2011 Years since quittin.5 Smokeless tobacco: Never Substance and Sexual Activity Drug use: Not Currently Sexual activity: Defer Alcohol Use: Not At Risk (08/23/2023) AUDIT-C Frequency of Alcohol Consumption: Never Average Number of Drinks: Not on file Frequency of Binge Drinking: Not on file PHYSICAL EXAM TRIAGE VITAL SIGNS: ED Triage Vitals Temp Pulse Resp BP SpO2 05/28/24190805/28/24190705/28/24190705/28/24190705/28/241907 37 ??C (98.6 ??F) 98 16 169/98 98 % Temp src Heart Rate Source Patient Position BP Location FiO2 (%) -- -- -- -- -- Height Height Method Weight Weight Method 05/28/241907 -- 05/28/241907 -- 1.6 m (5' 2.99 ) 69 kg (152 lb 1.9 oz) Physical Exam Vitals and nursing note reviewed. Constitutional: Appearance: Normal appearance. HENT: Head: Normocephalic and atraumatic. Right Ear: External ear normal. Left Ear: External ear normal. Nose: Nose normal. Eyes: Extraocular Movements: Extraocular movements intact. Conjunctiva/sclera: Conjunctivae normal. Pupils: Pupils are equal, round, and reactive to light. Cardiovascular: Rate and Rhythm: Normal rate and regular rhythm. Pulses: Normal pulses. Heart sounds: Normal heart sounds. Pulmonary: Effort: Pulmonary effort is normal. Breath sounds: Normal breath sounds. Abdominal: General: Bowel sounds are normal. Palpations: Abdomen is soft. Tenderness: There is no abdominal tenderness. There is no guarding or rebound. Musculoskeletal: General: Normal range of motion. Right shoulder: Normal. Left shoulder: Normal. Right elbow: Normal. Left elbow: No deformity. Normal range of motion. No tenderness. Cervical back: Full passive range of motion without pain, normal range of motion and neck supple. No spinous process tenderness or muscular tenderness. Comments: Ecchymosis to left elbow with superficial skin tear Skin: General: Skin is warm and dry. Capillary Refill: Capillary refill takes less than 2 seconds. Neurological: General: No focal deficit present. Mental Status: He is alert and oriented to person, place, and time. Psychiatric: Mood and Affect: Mood normal. Behavior: Behavior normal. LABS Labs Reviewed - No data to display RADIOLOGY CT Head WO Contrast Result Date: 05/28/2024 Narrative: EXAM DESCRIPTION: CT HEAD WO CONTRAST; CT CERVICAL SPINE WO CONTRAST REASON FOR STUDY: Head trauma, mod-severe, fall Brought in by ems from home for a fall. Pt states was in the kitchen, tripped over his feet and fell forward onto floor. Denies LOC. + blood thinners. Has a laceration to head and skin tear to left elbow. Dressing to head d/I at this time. TECHNIQUE: Axial images acquired through the brain without intravenous contrast. Axial images through the cervical spine with sagittal and coronal reformatted images. Images stored on PACS. Automated exposure control was used as a dose optimization technique for this examination. COMPARISON: 04/09/2016 FINDINGS: HEAD BRAIN: No hem orrhage, edema or mass effect. No recent infarct. Normal white matter. EXTRA- AXIAL SPACES: No fluidcollections. No masses. CALVARIUM: No fracture. SINUSES/MASTOIDS: There is fluid in the right maxillary sinus with a few air locules. ORBITS: No significant abnormality. CERVICAL SPINE ALIGNMENT: Mild anterolisthesis of C4 on C5 and moderate anterolisthesis of C5 on C6. Slightly increased from prior exam. Appears chronic. VERTEBRAE: No fracture. Vertebral body heights well-maintained. There is alarge partially calcified pannus at the dens and C1. DISCS: Odku-cs-tzxfrhox disc height loss throughout the cervical spine. HARDWARE: None in the spine. INDIVIDUAL DISC LEVELS: C1-C2: Mild stenosis secondary to pannus formation. C2-C3: Mild canal stenosis. Moderate neuroforaminal stenosis. C3-C4: Mild canal stenosis. Moderate neuroforaminal stenosis. C4-5: Mild canal stenosis. Severe left neuroforaminal stenosis. C5-6: Mild to moderate canal stenosis. Severe left and moderate right neural foraminal stenosis. C6-C7: Mild canal stenosis from disc bulge. Mild neuroforaminal stenosis. C7-T1: Mild canal stenosis from disc bulge. Mild neuroforaminal stenosis. There is severe left and moderate right facet and uncovertebral arthropathy from C2 through C7. UPPER THORACIC: Incompletely imaged. No s ignificant osseous spinal stenosis or osseous neural foraminal stenosis. LUNG APICES: No significant abnormality. NECK SOFT TISSUES: Severe calcifications of the left carotid. Likely severe stenosis.Recommend carotid Doppler. OTHER: No other significant findings. IMPRESSION: No acute intracranial abnormality. No cervical spine fracture. Severe calcifications of the left carotid artery with likely severe stenosis. Recommend further evaluation with carotid ultrasound. Moderate to severe degenerative changes of the cervical spine. Fluid in the right maxillary sinus with a few air locules. Correlate for sinusitis versus facial trauma. Pannus formation at C1-C2 with mild canal stenosis. THIS ISAN ELECTRONICALLY VERIFIED FINAL REPORT 05/28/2024 8:07 PM - Electronically signed by Edwin VOGT T: Report ID: [id number] Reading Location: [id number] CT Cervical Spine WO Contrast Result Date: 05/28/2024 Narrative: EXAM DESCRIPTION: CT HEAD WO CONTRAST; CT CERVICAL SPINE WO CONTRAST REASON FOR STUDY: Head trauma, mod-severe, fall Brought in by ems from home for a fall. Pt states was in the kitchen, tripped over his feet and fell forward onto floor. Denies LOC. + blood thinners. Has a laceration to head and skin tear to left elbow. Dressing to head d/I at this time. TECHNIQUE: Axial images acquired through the brain without intravenous contrast. Axial images through the cervical spine with sagittal and coronal reformatted images. Images stored on PACS. Automated exposure control was used as adose optimization technique for this examination. COMPARISON: 04/09/2016 FINDINGS: HEAD BRAIN: No hemorrhage, edema or mass effect. No recent infarct. Normal white matter. EXTRA-AXIAL SPACES: No fluid collections. No masses. CALVARIUM: No fracture. SINUSES/MASTOIDS: There is fluid in the right maxillary sinus with a few air locules. ORBITS: No significant abnormality. CERVICAL SPINE ALIGNMENT: Mild anterolisthesis of C4 on C5 and moderate anterolisthesis of C5 on C6. Slightly increased from prior exam. Appears chronic. VERTEBRAE: No fracture. Vertebral body heights well-maintained. There is alarge partially calcified pannus at the dens and C1. DISCS: Csqk-sl-gbrlxswi disc height loss throughout the cervical spine. HARDWARE: None in the spine. INDIVIDUAL DISC LEVELS: C1-C2: Mild stenosis secondary to pannus formation. C2-C3: Mild canal stenosis. Moderate neuroforaminal stenosis. C3-C4: Mild canal stenosis. Moderate neuroforaminal stenosis. C4-5: Mild canal stenosis. Severe left neuroforaminal stenosis. C5-6: Mild to moderate canal stenosis. Severe left and moderate right neural foraminal stenosis. C6-C7: Mild canal stenosis from disc bulge. Mild neuroforaminal stenosis. C7-T1: Mild canal stenosis from disc bulge. Mild neuroforaminal stenosis. There is severe left and moderate right facet and uncovertebral arthropathy from C2 through C7. UPPER THORACIC: Incompletely imaged. No s ignificant osseous spinal stenosis or osseous neural foraminal stenosis. LUNG APICES: No significant abnormality. NECK SOFT TISSUES: Severe calcifications of the left carotid. Likely severe stenosis.Recommend carotid Doppler. OTHER: No other significant findings. IMPRESSION: No acute intracranial abnormality. No cervical spine fracture. Severe calcifications of the left carotid artery with likely severe stenosis. Recommend further evaluation with carotid ultrasound. Moderate to severe degenerative changes of the cervical spine. Fluid in the right maxillary sinus with a few air locules. Correlate for sinusitis versus facial trauma. Pannus formation at C1-C2 with mild canal stenosis. THIS ISAN ELECTRONICALLY VERIFIED FINAL REPORT 05/28/2024 8:07 PM - Electronically signed by Edwin VOGT T: Report ID: [id number] Reading Location: [id number] ED COURSE/MEDICAL DECISION MAKING Patient's medical records were reviewed. ED Course as of 05/29/246 Time: 05/29 155 Comment: Laceration repaired using sterile technique. 5 sutures applied. Patient tolerated procedure well. By: Itz Pandya PA Time: 05/29 228 Comment: CT facial bones negative for any acute fracture or malalignment. X-ray of left elbow and left shoulder negative for any acute findings. CT head, cervical spine negative for any acute traumatic injury. There is evidence of severe calcifications of the left carotid artery with likely severe stenosis. Discussed these findings with Dr. Hidalgo. Will recommend close outpatient follow-up for outpatient carotid Dopplers. There is moderate to severe degenerative changes of the cervical spine. Discussed these results with patient. Stressed the importance of close follow-up with primary care provider regarding CT findings today and recommendations of carotid ultrasound. Patient is alert and oriented x4. Neuro intact. Full range of motion of all extremities. Sterile bandage applied to left elbow skin tear and laceration to forehead. He was instructed to follow up with his primary care provider in 5-7 days for suture removal. By: Itz Pandya PA Procedures FINAL IMPRESSION Fall, initial encounter Head injury, initial encounter Laceration of eyebrow and forehead, left, initial encounter Carotid stenosis, left Contusion of left elbow, initial encounter Skin tear of elbow without complication, left, initial encounter DISPOSITION: Home PATIENT INSTRUCTED TO FOLLOW UP Nickie Negron MD [address] [place] [address] Call today DISCHARGE MEDICATIONS Your medication list ASK your doctor about these medications Instructions Last Dose Given Next Dose Due acetaminophen 500 mg tablet Commonly known as: TYLENOL Take 1 tablet (500 mg total) by mouth every 8 (eight) hours as needed albuterol HFA 90 mcg/actuation inhaler Commonly known as: PROVENTIL HFA,VENTOLIN HFA,PROAIR HFA Inhale 2 puffs every 8 (eight) hours as needed Asacol HD 800 mg EC tablet Generic drug: mesalamine Take 1 tablet (800 mg total) by mouth 2 (two) times a day aspirin 81 mg enteric coated tablet Take 1 tablet (81 mg total) by mouth daily buPROPion XL 150 mg 24 hr tablet Commonly known as: WELLBUTRIN XL Take 1 tablet (150 mg total) by mouth daily carvediloL 3.125 mg tablet Commonly known as: COREG Take 1 tablet (3.125 mg total) by mouth 2 (two) times a day with meals cholecalciferol 5,000 unit tablet Commonly known as: VITAMIN D-3 Take 1 tablet (5,000 Units total) by mouth daily cholestyramine 4 gram powder Commonly known as: QUESTRAN Take 1 packet (4 g total) by mouth nightly as needed cilostazoL 50 mg tablet Commonly known as: PLETAL Take 1 tablet (50 mg total) by mouth 2 (two) times a day clopidogreL 75 mg tablet Commonly known as: PLAVIX Take 1 tablet (75 mg total) by mouth daily cyanocobalamin (vitamin B-12) 5,000 mcg tablet, sublingual Place 5,000 mcg under the tongue daily diclofenac sodium 3 % gel Apply 1 Application topically fluticasone propionate 50 mcg/actuation nasal spray Commonly known as: FLONASE Administer 1 spray into each nostril daily as needed folic acid 1 mg tablet Commonly known as: FOLVITE Take 1 tablet (1 mg total) by mouth daily levothyroxine 150 mcg tablet Commonly known as: SYNTHROID Take 1 tablet (150 mcg total) by mouth every morning lidocaine HCL 4 % cream Apply 1 application twice a day by topical route. pantoprazole DR 40 mg EC tablet Commonly known as: PROTONIX Take 1 tablet (40 mg total) by mouth 2 (two) times a day before breakfast and dinner polysaccharide iron complex 150 mg iron capsule Commonly known as: NU-IRON Take 1 capsule (150 mg total) by mouth every other day pravastatin 10 mg tablet Commonly known as: PRAVACHOL Take 1 tablet (10 mg total) by mouth nightly PreserVision AREDS 4,296 mcg-226 mg-90 mg capsule Generic drug: vitamins A,C,F-kndu-flmygp PreserVision AREDS-2 250-90-40-1 mg capsule Generic drug: vit C,I-Ls-ajzwk-lutein-zeaxan Take 1 capsule by mouth every 12 hours sodium bicarbonate 650 mg tablet Take 1 tablet (650 mg total) by mouth 3 (three) times a day tiZANidine 4 mg tablet Commonly known as: ZANAFLEX daily triamcinolone 0.1 % cream Commonly known as: KENALOG Apply topically 2 (two) times a day Feet and legs Viagra 50 mg tablet Generic drug: sildenafiL Take 1 tablet (50 mg total) by mouth as needed This examination was transcribed using the [employer] voice recognition system without human roustabout supervisor. In an effort to expedite patient care, this report has not been adjusted for typographical, grammatical, and syntax by a trained manager medical affairs. Itz Pandya PA 05/29/24 0603 Cosigned by Garrett Hidalgo DO at 05/29/2024 6:06 AM CDT Associated attestation - Garrett Hidalgo DO - 05/29/2024 6:06 AM CDT ED Attestation This patient was independently evaluated by the APC. I was available for immediate consultation andin-person evaluation if required but was not asked to do so. * Georges Fitzpatrick RN - 05/28/2024 7:23 PM CDT Brought in by ems from home for a fall. Pt states was in the kitchen, tripped over his feet and fell forward onto floor. Denies LOC. + blood thinners. Has a laceration to head and skin tear to left elbow. Dressing to head d/I at this time. documented in this encounter Miscellaneous Notes * ED Procedure Note - Itz Pandya PA - 05/29/2024 1:54 AM CDTAssociated Order(s): Laceration Repair Procedure Laceration Repair Date/Time: 05/29/2024 1:54 AM Performed by: Itz Pandya PA Authorized by: Garrett Hidalgo DO RN Notified of Procedure: yes Informed consent: Risks, benefits, alternatives discussed Anesthesia method: Local infiltration Local anesthetic: Lidocaine 1% WITH epi Location: Face Face location: Forehead Length (cm): 1 Repair type: Simple Preparation: Patient was prepped and draped in usual sterile fashion and imaging obtained to evaluate for foreign bodies Hemostasis achieved with: Direct pressure Wound exploration: entire depth of wound probed and visualized Wound extent: no foreign body, no underlying fracture and no vascular damage Area cleansed with: Hibiclens and saline Amount of cleaning: Standard Irrigation solution: Sterile saline Repair method: Sutures Suture size: 5-0 Suture material: Nylon Suture technique: Simple interrupted Number of sutures: 5 Approximation: Close Vermilion border: well-aligned Dressing: Sterile dressing Patient tolerance of procedure: Tolerated well, no immediate complications All guidewires, needles, sponges or other items are accounted for: yes Itz Pandya PA 05/29/24 0155 documented in this encounter Plan of Treatment Not on file documented as of this encounter Procedures Procedure Name Priority Date/Time Associated Diagnosis Comments ED LACERATION REPAIR Routine 05/29/2024 1:[address] FACIAL BONES WO CONTRAST ED 05/29/2024 1:33 AM CDT XR ELBOW LEFT 2 OR MORE VIEWS ED 05/29/2024 1:12 AM CDT XR SHOULDER LEFT 2 OR MORE VIEWS ED 05/29/2024 1:[address] CERVICAL SPINE WO CONTRAST ED 05/28/2024 7:[address] HEAD WO CONTRAST ED 05/28/2024 7 :47 PM CDT documented in this encounter Results * Laceration Repair (05/29/2024 1:54 AM CDT) Narrative Itz Pandya PA - 05/29/2024 1:54 AM CDT Itz Pandya PA ? 05/29/2024 ??1:55 AM Laceration Repair Date/Time: 05/29/2024 1:54 AM Performed by: Itz Pandya PA Authorized by: Garrett Hidalgo, DO ?? RN Notified of Procedure: yes ?? Informed consent: ??Risks, benefits, alternatives discussed Anesthesia method: ??Local infiltration Local anesthetic: ??Lidocaine 1% WITH epi Location: ??Face Face location: ??Forehead Length (cm): ??1 Repair type: ??Simple Preparation: ??Patient was prepped and draped in usual sterile fashion and imaging obtained to evaluate for foreign bodies Hemostasis achieved with: ??Direct pressure Wound exploration: entire depth of wound probed and visualized ?? Wound extent: no foreign body, no underlying fracture and no vascular damage ?? Area cleansed with: ??Hibiclens and saline Amount of cleaning: ??Standard Irrigation solution: ??Sterile saline Repair method: ??Sutures Suture size: ??5-0 Suture material: ??Nylon Suture technique: ??Simple interrupted Number of sutures: ??5 Approximation: ??Close Vermilion border: well-aligned ?? Dressing: ??Sterile dressing Patient tolerance of procedure: ??Tolerated well, no immediate complications All guidewires, needles, sponges or other items are accounted for: yes ?? Garrett Hidalgo DO IN CLINIC/BEDSIDE ORDERABLES F inal Result * CT Facial Bones WO Contrast (05/29/2024 1:33 AM CDT) Anatomical Region Laterality Modality Head and Neck N/A Computed Tomogra phy 05/29/2024 1:56 AM CDT Narrative 05/29/2024 2:01 AM CDT EXAM DESCRIPTION: ?? CT FACIAL BONES WO CONTRAST REASON FOR STUDY: ?? Nasal fracture suspected, Facial trauma, blunt ?? 12:48 AM Julius Andrade is a 73 y.o. male ??presenting to the ED c/o ground level fall prior to arrival. ??Patient states he tripped over his own feet and fell forward and hit his head. ??He denies loss of consciousness, visual changes, nausea, ?? vomiting, neck pain, or any injury. ??Bruising and skin tear noted to left elbow. ??Superficial laceration to left forehead. ??Left periorbital ecchymosis. ??Patient is unsure when his last tetanus vaccine was. ?? He is on Plavix. ?? TECHNIQUE: Noncontrast computed tomography images through the paranasal sinuses. ??Reconstructed MPR images reviewed. ??All images stored on PACS. Automated exposure control was used as a dose optimization technique for this examination. COMPARISON: ?? None FINDINGS: BONES: ??No fracture, malalignment, or suspicious lesion. SINUSES/MIDDLE EAR/MASTOIDS: ??Clear. TMJ: ??Normal. NASAL CAVITY: ??Midline nasal septum. ORBITS: ??Orbits and globes appear normal. OTHER SOFT TISSUES: ??Unremarkable. BRAIN: ??Visualized portions unremarkable. C-SPINE: ??Advanced disc disease. ??Chronic appearing defect at the anterior C1 ring. IMPRESSION: No acute fracture or malalignment identified. ?? THIS IS AN ELECTRONICALLY VERIFIED FINAL REPORT 05/29/2024 2:01 AM - Electronically signed by ??Martin BARRAGAN D: ??05/29/2024 2:01 AM T: Report ID: [id number] Reading Location: ??[id number] Procedure Note Martin Rodriguez MD - 05/29/2024 EXAM DESCRIPTION: CT FACIAL BONES WO CONTRAST REASON FOR STUDY: Nasal fracture suspected, Facial trauma, blunt 12:48 AM Julius Andrade is a 73 y.o. male presenting to the ED c/oground level fall prior to arrival. Patient states he tripped over his own feetand fell forward and hit his head. He denies loss of consciousness, visual changes, nausea, vomiting, neck pain, or any injury. Bruising and skintear noted to left elbow. Superficial laceration to left forehead. Left periorbital ecchymosis. Patient is unsure when his last tetanus vaccinewas. He is on Plavix. TECHNIQUE: Noncontrast computed tomography images through the paranasal sinuses. Reconstructed MPR images reviewed. All images stored on PACS. Automated exposure control was used as a dose optimization technique forthis examination. COMPARISON: None FINDINGS: BONES: No fracture, malalignment, or suspicious lesion. SINUSES/MIDDLE EAR/MASTOIDS: Clear. TMJ: Normal. NASAL CAVITY: Midline nasal septum. ORBITS: Orbits and globes appear normal. OTHER SOFT TISSUES: Unremarkable. BRAIN: Visualized portions unremarkable. C-SPINE: Advanced disc disease. Chronic appearing defect at the anteriorC1 ring. IMPRESSION: No acute fracture or malalignment identified. THIS IS AN ELECTRONICALLY VERIFIED FINAL REPORT 05/29/2024 2:01 AM - Electronically signed by Martin Rodriguez M.D. AR T: Report ID: [id number] Reading Location: [place] [address] PROCEDURES Final Resu lt * XR Shoulder Left 2 or More Views (05/29/2024 1:12 AM CDT) Anatomical Region Laterality Modality Upper Extremities, Shoulder Left Comp uted Radiography 05/29/2024 1:31 AM CDT Narrative 05/29/2024 1:31 AM CDT EXAM DESCRIPTION: XR SHOULDER LEFT 2 OR MORE VIEWS REASON FOR STUDY: fall, bruising, pain ?? Brought in by ems from home for a fall. Pt states was in the kitchen, tripped over his feet and fell forward onto floor. Denies LOC. + blood thinners. Has a laceration to head and skin tear to left elbow. Dressing to head d/I at this time. ? TECHNIQUE: ?? Internal rotation, external rotation, and Y ??views of the shoulder. COMPARISON: 01/13/2024 FINDINGS: BONES/JOINTS: ??No fracture, malalignment, or suspicious osseous lesion is identified. ?? 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 ?? Subacromial space and coracoclavicular distance appear normal. ?? Visualized ribs and spine intact. ?? SOFT TISSUES: ??Unremarkable. ?? IMPRESSION: No fracture or malalignment identified. ?? THIS IS AN ELECTRONICALLY VERIFIED FINAL REPORT 05/29/2024 1:31 AM - Electronically signed by ??Martin Rodriguez M.D. AR D: ??05/29/2024 1:31 AM T: Report ID: [id number] Reading Location: ??[id number] Procedure Note Martin Rodriguez MD - 05/29/2024 EXAM DESCRIPTION: XR SHOULDER LEFT 2 OR MORE VIEWS REASON FOR STUDY: fall, bruising, pain Brought in by ems from home for a fall. Pt states was in the kitchen,tripped over his feet and fell forward onto floor. Denies LOC. + blood thinners.Has a laceration to head and skin tear to left elbow. Dressing to head d/I atthis time. TECHNIQUE: Internal rotation, external rotation, and Y views of the shoulder. COMPARISON: 01/13/2024 FINDINGS: BONES/JOINTS: No fracture, malalignment, or suspicious osseous lesion is identified. 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 Subacromial space and coracoclavicular distance appear normal. Visualized ribs and spine intact. SOFT TISSUES: Unremarkable. IMPRESSION: No fracture or malalignment identified. THIS IS AN ELECTRONICALLY VERIFIED FINAL REPORT 05/29/2024 1:31 AM - Electronically signed by Martin Rodriguez M.D. AR T: Report ID: [id number] Reading Location: [place] [address] [facility] IMG XR PROCEDURES Final Resu lt * XR Elbow Left 2 or More Views (05/29/2024 1:12 AM CDT) Anatomical Region Laterality Modality Upper Extremities, Elbow Left Compute d Radiography 05/29/2024 1:29 AM CDT Narrative 05/29/2024 1:30 AM CDT EXAM DESCRIPTION: XR ELBOW LEFT 2 VIEWS REASON FOR STUDY: Elbow trauma, initial exam ?? Brought in by ems from home for a fall. Pt states was in the kitchen, tripped over his feet and fell forward onto floor. Denies LOC. + blood thinners. Has a laceration to head and skin tear to left elbow. Dressing to head d/I at this time. ? TECHNIQUE: ?? Frontal, oblique, and lateral ??views of the ??left elbow . COMPARISON: None FINDINGS: BONES/JOINTS: ??No fracture, malalignment, or suspicious osseous lesion is identified. ?? Mild arthritis. ?? SOFT TISSUES: ??Vascular calcifications. ?? IMPRESSION: No acute abnormality identified. ?? THIS IS AN ELECTRONICALLY VERIFIED FINAL REPORT 05/29/2024 1:30 AM - Electronically signed by ??Martin Rodriguez M.D. AR D: ??05/29/2024 1:30 AM T: Report ID: [id number] Reading Location: ??[id number] Procedure Note Martin Rodriguez MD - 05/29/2024 EXAM DESCRIPTION: XR ELBOW LEFT 2 VIEWS REASON FOR STUDY: Elbow trauma, initial exam Brought in by ems from home for a fall. Pt states was in the kitchen,tripped over his feet and fell forward onto floor. Denies LOC. + blood thinners.Has a laceration to head and skin tear to left elbow. Dressing to head d/I atthis time. TECHNIQUE: Frontal, oblique, and lateral views of the left elbow . COMPARISON: None FINDINGS: BONES/JOINTS: No fracture, malalignment, or suspicious osseous lesion is identified. Mild arthritis. SOFT TISSUES: Vascular calcifications. IMPRESSION: No acute abnormality identified. THIS IS AN ELECTRONICALLY VERIFIED FINAL REPORT 05/29/2024 1:30 AM - Electronically signed by Martin Rodriguez M.D. AR T: Report ID: [id number] Reading Location: [id number] [facility] XR PROCEDURES Final Resu lt * CT Cervical Spine WO Contrast (05/28/2024 7:47 PM CDT) Anatomical Region Laterality Modality Spine N/A Computed Tomogra phy 05/28/2024 7:55 PM CDT Narrative 05/28/2024 8:07 PM CDT EXAM DESCRIPTION: CT HEAD WO CONTRAST; CT CERVICAL SPINE WO CONTRAST REASON FOR STUDY: Head trauma, mod-severe, fall ?? Brought in by ems from home for a fall. Pt states was in the kitchen, tripped over his feet and fell forward onto floor. Denies LOC. + blood thinners. Has a laceration to head and skin tear to left elbow. Dressing to head d/I at this time. ? TECHNIQUE: Axial images acquired through the brain without intravenous contrast. Axial images through the cervical spine with sagittal and coronal reformatted images. Images stored on PACS. ??Automated exposure control was used as a dose optimization technique for this examination. COMPARISON: 04/09/2016 FINDINGS: HEAD BRAIN: ?? No hemorrhage, edema or mass effect. No recent infarct. ?? Normal white matter. ? EXTRA-AXIAL SPACES: ?? No fluid collections. No masses. CALVARIUM: ??No fracture. SINUSES/MASTOIDS: ??There is fluid in the right maxillary sinus with a few air locules. ORBITS: ??No significant abnormality. CERVICAL SPINE ALIGNMENT: ??Mild anterolisthesis of C4 on C5 and moderate anterolisthesis of C5 on C6. ??Slightly increased from prior exam. ??Appears chronic. VERTEBRAE: ??No fracture. Vertebral body heights well-maintained. ?? There is a large partially calcified pannus at the dens and C1. DISCS: ??Vxqk-bi-jgnqvwxi disc height loss throughout the cervical spine. HARDWARE: ??None in the spine. INDIVIDUAL DISC LEVELS: ?? C1-C2: Mild stenosis secondary to pannus formation. C2-C3: ??Mild canal stenosis. ??Moderate neuroforaminal stenosis. ?? C3-C4: ??Mild canal stenosis. ??Moderate neuroforaminal stenosis. ?? C4-5: ??Mild canal stenosis. ??Severe left neuroforaminal stenosis. ?? C5-6: ??Mild to moderate canal stenosis. ??Severe left and moderate right neural foraminal stenosis. ?? C6-C7: ??Mild canal stenosis from disc bulge. ??Mild neuroforaminal stenosis. ? C7-T1: ??Mild canal stenosis from disc bulge. ??Mild neuroforaminal stenosis. There is severe left and moderate right facet and uncovertebral arthropathy from C2 through C7. UPPER THORACIC: ??Incompletely imaged. No significant osseous spinal stenosis or osseous neural foraminal stenosis. LUNG APICES: ??No significant abnormality. NECK SOFT TISSUES: ?? Severe calcifications of the left carotid. ??Likely severe stenosis. ??Recommend carotid Doppler. OTHER: ??No other significant findings. IMPRESSION: No acute intracranial abnormality. No cervical spine fracture. Severe calcifications of the left carotid artery with likely severe stenosis. Recommend further evaluation with carotid ultrasound. Moderate to severe degenerative changes of the cervical spine. Fluid in the right maxillary sinus with a few air locules. Correlate for sinusitis versus facial trauma. Pannus formation at C1-C2 with mild canal stenosis. THIS IS AN ELECTRONICALLY VERIFIED FINAL REPORT 05/28/2024 8:07 PM - Electronically signed by ??Edwin Lopez M.D. KN D: ??05/28/2024 8:07 PM T: Report ID: [id number] Reading Location: ??[id number] Procedure Note Edwin Lopez MD - 05/28/2024 EXAM DESCRIPTION: CT HEAD WO CONTRAST; CT CERVICAL SPINE WO CONTRAST REASON FOR STUDY: Head trauma, mod-severe, fall Brought in by ems from home for a fall. Pt states was in the kitchen,tripped over his feet and fell forward onto floor. Denies LOC. + blood thinners.Has a laceration to head and skin tear to left elbow. Dressing to head d/I atthis time. TECHNIQUE: Axial images acquired through the brain without intravenous contrast. Axial images through the cervical spine with sagittal andcoronal reformatted images. Images stored on PACS. Automated exposure control was used as a dose optimization technique for this examination. COMPARISON: 04/09/2016 FINDINGS: HEAD BRAIN: No hemorrhage, edema or mass effect. No recent infarct. Normal white matter. EXTRA-AXIAL SPACES: No fluid collections. No masses. CALVARIUM: No fracture. SINUSES/MASTOIDS: There is fluid in the right maxillary sinus with a fewair locules. ORBITS: No significant abnormality. CERVICAL SPINE ALIGNMENT: Mild anterolisthesis of C4 on C5 and moderate anterolisthesisof C5 on C6. Slightly increased from prior exam. Appears chronic. VERTEBRAE: No fracture. Vertebral body heights well-maintained. Thereis a large partially calcified pannus at the dens and C1. DISCS: Omur-gw-poljoqdr disc height loss throughout the cervical spine. HARDWARE: None in the spine. INDIVIDUAL DISC LEVELS: C1-C2: Mild stenosis secondary to pannusformation. C2-C3: Mild canal stenosis. Moderate neuroforaminal stenosis. C3-C4: Mild canal stenosis. Moderate neuroforaminal stenosis. C4-5: Mild canal stenosis. Severe left neuroforaminal stenosis. C5-6: Mild to moderate canal stenosis. Severe left and moderate rightneural foraminal stenosis. C6-C7: Mild canal stenosis from disc bulge. Mild neuroforaminalstenosis. C7-T1: Mild canal stenosis from disc bulge. Mild neuroforaminalstenosis. There is severe left and moderate right facet and uncovertebralarthropathy from C2 through C7. UPPER THORACIC: Incompletely imaged. No significant osseous spinalstenosis or osseous neural foraminal stenosis. LUNG APICES: No significant abnormality. NECK SOFT TISSUES: Severe calcifications of the left carotid. Likelysevere stenosis. Recommend carotid Doppler. OTHER: No other significant findings. IMPRESSION: No acute intracranial abnormality. No cervical spine fracture. Severe calcifications of the left carotid artery with likely severestenosis. Recommend further evaluation with carotid ultrasound. Moderate to severe degenerative changes of the cervical spine. Fluid in the right maxillary sinus with a few air locules. Correlate for sinusitis versus facial trauma. Pannus formation at C1-C2 with mild canal stenosis. THIS IS AN ELECTRONICALLY VERIFIED FINAL REPORT 05/28/2024 8:07 PM - Electronically signed by Edwin VOGT T: Report ID: [id number] Reading Location: [id number] us Macie Paulino MD IMG CT PROCEDURES Shruthi l Result * CT Head WO Contrast (05/28/2024 7:47 PM CDT) Anatomical Region Laterality Modality Head and Neck N/A Computed Tomogra phy 05/28/2024 7:55 PM CDT Narrative 05/28/2024 8:07 PM CDT EXAM DESCRIPTION: CT HEAD WO CONTRAST; CT CERVICAL SPINE WO CONTRAST REASON FOR STUDY: Head trauma, mod-severe, fall ?? Brought in by ems from home for a fall. Pt states was in the kitchen, tripped over his feet and fell forward onto floor. Denies LOC. + blood thinners. Has a laceration to head and skin tear to left elbow. Dressing to head d/I at this time. ? TECHNIQUE: Axial images acquired through the brain without intravenous contrast. Axial images through the cervical spine with sagittal and coronal reformatted images. Images stored on PACS. ??Automated exposure control was used as a dose optimization technique for this examination. COMPARISON: 04/09/2016 FINDINGS: HEAD BRAIN: ?? No hemorrhage, edema or mass effect. No recent infarct. ?? Normal white matter. ? EXTRA-AXIAL SPACES: ?? No fluid collections. No masses. CALVARIUM: ??No fracture. SINUSES/MASTOIDS: ??There is fluid in the right maxillary sinus with a few air locules. ORBITS: ??No significant abnormality. CERVICAL SPINE ALIGNMENT: ??Mild anterolisthesis of C4 on C5 and moderate anterolisthesis of C5 on C6. ??Slightly increased from prior exam. ??Appears chronic. VERTEBRAE: ??No fracture. Vertebral body heights well-maintained. ?? There is a large partially calcified pannus at the dens and C1. DISCS: ??Qqsn-io-dgpryjpa disc height loss throughout the cervical spine. HARDWARE: ??None in the spine. INDIVIDUAL DISC LEVELS: ?? C1-C2: Mild stenosis secondary to pannus formation. C2-C3: ??Mild canal stenosis. ??Moderate neuroforaminal stenosis. ?? C3-C4: ??Mild canal stenosis. ??Moderate neuroforaminal stenosis. ?? C4-5: ??Mild canal stenosis. ??Severe left neuroforaminal stenosis. ?? C5-6: ??Mild to moderate canal stenosis. ??Severe left and moderate right neural foraminal stenosis. ?? C6-C7: ??Mild canal stenosis from disc bulge. ??Mild neuroforaminal stenosis. ? C7-T1: ??Mild canal stenosis from disc bulge. ??Mild neuroforaminal stenosis. There is severe left and moderate right facet and uncovertebral arthropathy from C2 through C7. UPPER THORACIC: ??Incompletely imaged. No significant osseous spinal stenosis or osseous neural foraminal stenosis. LUNG APICES: ??No significant abnormality. NECK SOFT TISSUES: ?? Severe calcifications of the left carotid. ??Likely severe stenosis. ??Recommend carotid Doppler. OTHER: ??No other significant findings. IMPRESSION: No acute intracranial abnormality. No cervical spine fracture. Severe calcifications of the left carotid artery with likely severe stenosis. Recommend further evaluation with carotid ultrasound. Moderate to severe degenerative changes of the cervical spine. Fluid in the right maxillary sinus with a few air locules. Correlate for sinusitis versus facial trauma. Pannus formation at C1-C2 with mild canal stenosis. THIS IS AN ELECTRONICALLY VERIFIED FINAL REPORT 05/28/2024 8:07 PM - Electronically signed by ??Edwin Lopez M.D. KN D: ??05/28/2024 8:07 PM T: Report ID: [id number] Reading Location: ??[id number] Procedure Note Edwin Lopez MD - 05/28/2024 EXAM DESCRIPTION: CT HEAD WO CONTRAST; CT CERVICAL SPINE WO CONTRAST REASON FOR STUDY: Head trauma, mod-severe, fall Brought in by ems from home for a fall. Pt states was in the kitchen,tripped over his feet and fell forward onto floor. Denies LOC. + blood thinners.Has a laceration to head and skin tear to left elbow. Dressing to head d/I atthis time. TECHNIQUE: Axial images acquired through the brain without intravenous contrast. Axial images through the cervical spine with sagittal andcoronal reformatted images. Images stored on PACS. Automated exposure control was used as a dose optimization technique for this examination. COMPARISON: 04/09/2016 FINDINGS: HEAD BRAIN: No hemorrhage, edema or mass effect. No recent infarct. Normal white matter. EXTRA-AXIAL SPACES: No fluid collections. No masses. CALVARIUM: No fracture. SINUSES/MASTOIDS: There is fluid in the right maxillary sinus with a fewair locules. ORBITS: No significant abnormality. CERVICAL SPINE ALIGNMENT: Mild anterolisthesis of C4 on C5 and moderate anterolisthesisof C5 on C6. Slightly increased from prior exam. Appears chronic. VERTEBRAE: No fracture. Vertebral body heights well-maintained. Thereis a large partially calcified pannus at the dens and C1. DISCS: Dxaa-ym-aeybevda disc height loss throughout the cervical spine. HARDWARE: None in the spine. INDIVIDUAL DISC LEVELS: C1-C2: Mild stenosis secondary to pannusformation. C2-C3: Mild canal stenosis. Moderate neuroforaminal stenosis. C3-C4: Mild canal stenosis. Moderate neuroforaminal stenosis. C4-5: Mild canal stenosis. Severe left neuroforaminal stenosis. C5-6: Mild to moderate canal stenosis. Severe left and moderate rightneural foraminal stenosis. C6-C7: Mild canal stenosis from disc bulge. Mild neuroforaminalstenosis. C7-T1: Mild canal stenosis from disc bulge. Mild neuroforaminalstenosis. There is severe left and moderate right facet and uncovertebralarthropathy from C2 through C7. UPPER THORACIC: Incompletely imaged. No significant osseous spinalstenosis or osseous neural foraminal stenosis. LUNG APICES: No significant abnormality. NECK SOFT TISSUES: Severe calcifications of the left carotid. Likelysevere stenosis. Recommend carotid Doppler. OTHER: No other significant findings. IMPRESSION: No acute intracranial abnormality. No cervical spine fracture. Severe calcifications of the left carotid artery with likely severestenosis. Recommend further evaluation with carotid ultrasound. Moderate to severe degenerative changes of the cervical spine. Fluid in the right maxillary sinus with a few air locules. Correlate for sinusitis versus facial trauma. Pannus formation at C1-C2 with mild canal stenosis. THIS IS AN ELECTRONICALLY VERIFIED FINAL REPORT 05/28/2024 8:07 PM - Electronically signed by Edwin Lopez M.D. KN T: Report ID: [id number] Reading Location: [id number] Macie Paulino MD IMG CT PROCEDURES Shruthi l Result documented in this encounter Visit Diagnoses Diagnosis Fall, initial encounter- Primary Head injury, initial encounter Laceration of eyebrow and forehead, left, initial encounter Carotid stenosis, left Occlusion and stenosis of carotid artery without mention of cerebral infarction Contusion of left elbow, initial encounter Skin tear of elbow without complication, left, initial encounter documented in this encounter Administered Medications Inactive Administered Medications - up to 3 most recent administrations Medication Order MAR Action Action Date Dose Rate Site acetaminophen (TYLENOL) tablet 975 mg 975 mg (rounded from 1,000 mg), oral, Once, On Jasmyn 05/28/24 at 1930, For 1 dose Given 05/28/2024 7:30 PM CDT 975 mg lidocaine-EPINEPHrine (XYLOCAINE with EPI) 1 %-1:100,000 injection 10 mL 10 mL, infiltration, Once, On Sat05/29/24 at 0049, For 1 dose, Indications: Administration of Local AnesthesiaIndications:Administr ation of Local Anesthesia Given by Other 05/29/2024 1:44 AM CDT 10 mL documented in this encounter Active and Recently Administered Medications Times are shown in CDT. Scheduled Medication Order 05/27/2024 05/28/2024 05/29/2024 acetaminophen (TYLENOL) tablet 975 mg (COMPLETED) 975 mg (rounded from 1,000 mg), oral, Once, On Jasmyn 05/28/24 at 1930, For 1 dose 1930 (Given - Provider: Georges Fitzpatrick RN) lidocaine-EPINEPHrine (XYLOCAINE with EPI) 1 %-1:100,000 injection 10 mL (COMPLETED) 10 mL, infiltration, Once, On Sat05/29/24 at 0049, For 1 dose, Indications: Administration of Local Anesthesia 0144 (Given by Other - Provider: Jeniffer Rojas RN - Comment: administered by [facility] prior to suturing) documented in this encounter Care Teams Datastage Consultant Relationship Specialty Start Date End Date Nickie Negron MD [address] [facility] [address] [place] [address] PCP - General 01/13/19 documented as of this encounter
--- OUTSIDE RECORDS SUMMARY | 2024-10-27 10:53 | XMS_ITS | Encounter Summary ---
Author Organization [facility] Healthcare Address [address] [place] [address] Care Team Providers Care Human Resources District Manager Name Role Phone Nickie Negron MD Primary Care Provider [phone] Reason for Referral * Diagnostic Imaging (Routine) - Closed Specialty Diagnoses / Procedures Referred By Roula mcmillan Referred To Contact Diagnoses Bilateral carotid artery occlusion Procedures US Carotids Duplex Bilateral Mercedez Singh NP Phone: tel: fax: [facility] [address] [place] [phone] Referral ID Status Reason Start Date Expiration Date Visits Re quested Visits Authorized [id number] Closed 02/21/2022 03/23/2023 1 1 Reason for Visit * Diagnostic Imaging (Routine) - Closed Specialty Diagnoses / Procedures Referred By Roula mcmillan Referred To Contact Diagnoses Bilateral carotid artery occlusion Procedures US Carotids Duplex Bilateral Mercedez Singh NP Phone: tel: fax: [facility] [address] [place] [phone] Referral ID Status Reason Start Date Expiration Date Visits Re quested Visits Authorized [id number] Closed 02/21/2022 03/23/2023 1 1 Encounter Details Date Type Department Care Team (Latest Contact Info) Description 02/28/2023 7:57 AM CDT - 02/28/2023 11:59 PM CDT Hospital Encounter [facility] [address] [address] Bilateral carotid artery occlusion Discharge Disposition: Discharge to home or self [...] on file 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 Gender Identity Not on file Sexual Orientation [...] (1 mg total) by mouth daily 01/27/2020 polysaccharide iron complex (NU-IRON) 150 mg iron capsuleIndication s:Iron Deficiency Anemia Take 1 capsule (150 mg total) by mouth every other day pravastatin (PRAVACHOL) 10 mg tablet Take 1 tablet (10 mg total) by mouth nightly 05/19/2019 sodium bicarbonate 650 mg tablet Take 1 tablet (650 mg total) by mouth 3 (three) times a day 1000 tablet 3 02/22/2023 vit C,L-Gx-toblo-lute in-zeaxan (PreserVision AREDS-2) 250-90-40-1 mg capsule Take 1 capsule by mouth every 12 hours albuterol HFA (PROVENTIL HFA,VENTOLIN HFA,PROAIR HFA) 90 mcg/actuation inhaler Inhale 2 puffs every 8 (eight) hours as needed fluticasone propionate (FLONASE) 50 mcg/actuation nasal spray Administer 1 spray into each nostril daily as needed cephalexin (KEFLEX) 500 mg capsule Take 1 capsule (500 mg total) by mouth every 6 (six) hours 02/04/2023 3 cholecalciferol (VITAMIN D-3) 25 mcg (1,000 unit) tablet Take 1 tablet (1,000 Units total) by mouth daily 4 levothyroxine (SYNTHROID) 125 mcg tablet Take 1 tablet (125 mcg total) by mouth 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 before breakfast [address] (PROTONIX) 40 mg EC [...] Procedure Name Priority Date/Time Associated Diagnosis Comments US CAROTIDS DUPLEX BILATERAL Schedule Routine, Read Routine (OP Routine) 02/28/2023 9:16 AM CDT Bilateral carotid artery occlusion documented in this encounter Results * US Carotids Duplex Bilateral (02/28/2023 9:16 AM CDT) Anatomical Region Laterality Modality Vascular Bilateral Ultrasound 02/28/2023 Narrative 03/04/2023 8:05 AM CDT Foound Job ID: [id number] Foound Document ID: [id number] Dictated date/time: [id number] CAROTID DUPLEX REASON FOR EXAM Carotid stenosis. COMMENTS ON THE RIGHT Peak velocity of CCA 71, ICA of 71. ??Smooth heterogenous plaque seen in proximal ICA. ??ECA velocity of 302. ??Antegrade flow noted vertebral artery, velocity of 55. COMMENTS ON THE LEFT Peak systolic velocity CCA of 19. ??Left ICA is difficult to visualize secondary to heavily calcified plaque. ??Velocity of 92. ??ECA velocity of 49. ??Antegrade flow noted left vertebral artery, velocity of 47. IMPRESSION 1. There is 16% to 49% stenosis right internal carotid artery, difficult to evaluate on the left secondary to calcified plaque and arterial shadowing. ??Recommend additional imaging. 2. Antegrade flow noted bilateral vertebral arteries. Job ID/Internal Job ID: ??[id number] Mercedez Singh MEAT TRIMMER IMG US PROCEDURES Final R esult documented in this encounter Visit Diagnoses Diagnosis Bilateral carotid artery occlusion Occlusion and stenosis of carotid artery without mention of cerebral infarction documented in this encounter Care Teams Human Resources District Manager Relationship Specialty Start Date End Date Nickie Negron MD [address] [place] [address] PCP - General 01/13/19 documented as of this encounter
--- OUTSIDE RECORDS SUMMARY | 2024-10-27 10:53 | XMS_ITS | Encounter Summary ---
Author Organization [facility] Healthcare Address [address] [place] [address] Care Team Providers Care Donor Services Coordinator Name Role Phone Nickie Negron MD Primary Care Provider +1- [phone] Reason for Referral * Diagnostic Imaging (Routine) - Closed Specialty Diagnoses / Procedures Referred By Roula mcmillan Referred To Contact Diagnoses Atherosclerosis of [place] artery of both lower extremities with intermittent claudication (HCC) Procedures US Arterial Doppler Lower Extremity Bilateral Mercedez Singh NP Phone: tel: fax: [facility] [address] [place] [phone] Referral ID Status Reason Start Date Expiration Date Visits Re quested Visits Authorized [id number] Closed 02/21/2022 03/23/2023 1 1 Reason for Visit * Diagnostic Imaging (Routine) - Closed Specialty Diagnoses / Procedures Referred By Roula mcmillan Referred To Contact Diagnoses Atherosclerosis of [place] artery of both lower extremities with intermittent claudication (HCC) Procedures US Arterial Doppler Lower Extremity Bilateral Mercedez Singh NP Phone: tel: fax: [facility] [address] [place] [phone] Referral ID Status Reason Start Date Expiration Date Visits Re quested Visits Authorized [id number] Closed 02/21/2022 03/23/2023 1 1 Encounter Details Date Type Department Care Team (Latest Contact Info) Description 02/28/2023 7:58 AM CDT - 02/28/2023 11:59 PM CDT Hospital Encounter [facility] [address] [place] [id number] Atherosclerosis of [place] artery of both lower extremities with intermittent claudication (HCC) Discharge Disposition: Discharge to home or self [...] on file 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 Gender Identity Not on file Sexual Orientation [...] a day 1000 tablet 3 02/22/2023 vit C,Z-Hj-njbtf-lute in-zeaxan (PreserVision AREDS-2) 250-90-40-1 mg capsule Take [...] 1 tablet (125 mcg total) by mouth financial sales consultant before breakfast [address] (PROTONIX) 40 [...] Name Priority Date/Time Associated Diagnosis Comments US ARTERIAL DOPPLER LOWER EXTREMITY BILATERAL Schedule Routine, Read Routine (OP Routine) 02/28/2023 9:15 AM CDT Atherosclerosis of [place] artery of both lower extremities with intermittent claudication (HCC) documented in this encounter Results * US Arterial Doppler Lower Extremity Bilateral (02/28/2023 9:15 AM CDT) Anatomical Region Laterality Modality Vascular Bilateral Ultrasound 02/28/2023 Narrative 03/04/2023 8:05 AM CDT [id number] Digitalion Job ID: [id number] Amphion Document ID: [id number] Dictated date/time: [id number] LOWER EXTREMITY ARTERIAL DOPPLER STUDY REASON FOR EXAM Atherosclerosis: COMMENTS ON THE RIGHT Brachial pressure 160. ??PT, DP noncompressible. ??Digital pressure 120. ?? Waveforms triphasic throughout. ??Digital arm index 0.75. COMMENTS ON THE LEFT PT, DP noncompressible. ??Digital pressure 56. ??Waveforms are triphasic at the common femoral and popliteal level, biphasic at the tibial level. OVERALL IMPRESSION ABIs unreliable secondary to vessel non-compressibility. ??Waveform analysis normal on the right. ??Wound healing potential good. ??Waveform analysis on the left suggest mild superficial femoral artery and infrapopliteal disease. ??Wound healing potential good. Job ID/Internal Job ID: ??[id number] Mercedez Singh CASHIERS SUPERVISOR IMG US PROCEDURES Final R esult documented in this encounter Visit Diagnoses Diagnosis Atherosclerosis of [place] artery of both lower extremities with intermittent claudication (HCC) documented in this encounter Care Teams Donor Services Coordinator Relationship Specialty Start Date End Date Nickie Negron MD [address] [facility] [address] [place] [address] PCP - General 01/13/19 documented as of this encounter
--- OUTSIDE RECORDS SUMMARY | 2024-10-27 10:53 | XMS_ITS | Encounter Summary ---
Author Organization [facility] Healthcare Address [address] [place] [address] Care Team Providers Care Senior Partner Name Role Phone Nickie Negron MD Primary Care Provider [phone]- [phone] Reason for Referral * Diagnostic Imaging (Routine) - Closed Specialty Diagnoses / Procedures Referred By Roula mcmillan Referred To Contact Diagnoses Atherosclerosis of [place] artery of both lower extremities with intermittent claudication (HCC) Procedures US Arterial Doppler Lower Extremity Bilateral Zac Parada NP [address] [facility] [address] [facility] [place] [address] Phone: tel: fax: [facility] [address] [place] [phone] Referral ID Status Reason Start Date Expiration Date Visits Re quested Visits Authorized [id number] Closed 02/28/2023 03/29/2024 1 1 Reason for Visit * Diagnostic Imaging (Routine) - Closed Specialty Diagnoses / Procedures Referred By Roula mcmillan Referred To Contact Diagnoses Atherosclerosis of [place] artery of both lower extremities with intermittent claudication (HCC) Procedures US Arterial Doppler Lower Extremity Bilateral Zac Parada, VINNY [address] [facility] [address] [facility] [place] [address] Phone: tel: fax: [facility] [address] [place] [phone] Referral ID Status Reason Start Date Expiration Date Visits Re quested Visits Authorized [id number] Closed 02/28/2023 03/29/2024 1 1 Encounter Details Date Type Department Care Team (Latest Contact Info) Description 02/27/2024 8:45 AM CDT - 02/27/2024 11:59 PM CDT Hospital Encounter 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 Gender Identity Not on file [...] a day 1000 tablet 3 02/22/2023 vit C,W-Vn-bbqhn-lute in-zeaxan (PreserVision AREDS-2) 250-90-40-1 mg capsule Take [...] BILATERAL Schedule Routine, Read Routine (OP Routine) 02/27/2024 11:04 AM CDT Atherosclerosis of [place] artery of both lower extremities with intermittent claudication (HCC) documented in this encounter Results * US Arterial Doppler Lower Extremity Bilateral (02/27/2024 11:04 AM CDT) Anatomical Region Laterality Modality Vascular Bilateral Ultrasound 02/27/2024 Narrative 03/03/2024 1:59 PM CDT [employer] Job ID: [id number] [employer] Document ID: [id number] Dictated date/time: [id number] LOWER EXTREMITY ARTERIAL DOPPLER STUDY REASON FOR EXAM Claudication. COMMENTS ON THE RIGHT Brachial pressure 146. ??PT/DP noncompressible. ??Digital pressure 88. ?? Waveforms triphasic throughout. COMMENTS ON THE LEFT PT/DP noncompressible. ??Digital pressure 54. ??Triphasic waveform at the common femoral, biphasic at the popliteal and tibial level. OVERALL IMPRESSION ABIs unreliable secondary to vessel non-compressibility. ??Digital pressures suggest adequate wound healing potential. ??Normal waveforms on the right. SFA disease suspected on the left. Job ID/Internal Job ID: ??[id number] Zac Parada BUTTON RIVETER IMG US PROCEDURES Final Resul t documented in this encounter Visit Diagnoses Diagnosis Atherosclerosis of [place] artery of both lower extremities with intermittent claudication (HCC) documented in this encounter Care Teams Senior Partner Relationship Specialty Start Date End Date Nickie Negron MD [address] [facility] [address] [place] [address] PCP - General 01/13/19 documented as of this encounter
--- OUTSIDE RECORDS SUMMARY | 2024-10-27 10:53 | XMS_ITS | Encounter Summary ---
Author Organization [facility] Healthcare Address [address] [place] [address] Care Team Providers Care Date Pitter Name Role Phone Nickie Negron MD Primary Care Provider +1- [phone] Reason for Referral * Procedure (Routine) - Authorized Specialty Diagnoses / Procedures Referred By Contac t Referred To Contact Diagnoses Primary osteoarthritis of both knees Procedures Large Joint (Hip, Knee, Shoulder) Injection: L knee Gayle Lawson PA [address] [facility] [address] [address] [place] [address] Phone: tel: fax: [facility] Referral ID Status Reason Start Date Expiration Date V isits Requested Visits Authorized [id number] Authorized 01/27/2024 02/25/2025 1 1 * Procedure (Routine) - Authorized Specialty Diagnoses / Procedures Referred By Contac t Referred To Contact Diagnoses Primary osteoarthritis of both knees Procedures Large Joint (Hip, Knee, Shoulder) Injection: R knee Gayle Lawson PA [address] [facility] [address] [place] [address] [place] [address] Phone: tel: fax: [facility] Referral ID Status Reason Start Date Expiration Date V isits Requested Visits Authorized [id number] Authorized 01/27/2024 02/25/2025 1 1 * Diagnostic Imaging (Routine) - Closed Specialty Diagnoses / Procedures Referred By Contac t Referred To Contact Diagnoses Left knee pain, unspecified chronicity Procedures XR Knee Left 3 View Gayle Lawson PA [address] [place] [address] [address] [place] [address] Phone: tel: fax: [address] [phone] Referral ID Status Reason Start Date Expiration Date Visits Re quested Visits Authorized [id number] Closed 01/27/2024 02/25/2025 1 1 * Diagnostic Imaging (Routine) - Closed Specialty Diagnoses / Procedures Referred By Contac t Referred To Contact Diagnoses Right knee pain, unspecified chronicity Procedures XR Knee Right 3 View Gayle Lawson PA [address] [place] [address] [address] Phone: tel: fax: [address] [phone] Referral ID Status Reason Start Date Expiration Date Visits Re quested Visits Authorized [id number] Closed 01/27/2024 02/25/2025 1 1 Reason for Visit * Reason Comments Pain Pain Encounter Details Date Type Department Care Team (Late st Contact Info) Description 01/27/2024 2:00 PM CDT Office Visit [facility] Orthopedics and Sports Medicine [address] [place] [phone] Gayle Lawson PA [address] [place] [address] [address] Right knee pain, unspecified chronicity (Primary Dx); Left knee pain, unspecified chronicity; Primary osteoarthritis of both knees Social History Tobacco Use Types Packs/Day Years [...] on file 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 NEW COMPLAINT VISIT CHIEF COMPLAINT Chief Complaint Patient presents with ??? Right Knee - Pain ??? Left Knee - Pain HISTORY OF PRESENT ILLNESS Julius Andrade is a pleasant 73 y.o. male presenting with bilateral knee pain that has been present for many years, but has worsened recently. He has pain with weight-bearing, using stairs, and atnight. He has not had previous treatment for this. He denies alyx instability, popping, clicking, catching, groin pain, thigh pain, numbness, tingling, or radicular pain. He denies falls or trauma. He has pain over the anterior aspect of the knee. He takes Tylenol with minimal relief. He denies any further complaints. PAST MEDICAL HISTORY Past Medical History: Diagnosis Date ??? Asthma ??? Celiac sprue ??? Chronic kidney disease, stage III (moderate) (HCC) ??? Coronary artery disease ??? Crohn's colitis (CMS/HCC) (HCC) ??? DJD (degenerative joint disease) ??? GERD (gastroesophageal reflux disease) ??? Hyperlipidemia ??? Hypertension ??? Hypokalemia ??? Hypomagnesemia ??? Hypophosphatemia ??? Hypothyroidism PAST SURGICAL HISTORY Past Surgical History: Procedure Laterality Date ??? ATHERECTOMY Left 05/04/2015 popliteal ??? CARDIAC CATHETERIZATION stent ??? COLONOSCOPY W/ BIOPSIES 04/13/2016 ??? NECK SURGERY 10/22/2011 Neck fracture ??? UPPER GASTROINTESTINAL ENDOSCOPY MEDICATIONS Current Outpatient Medications: ??? acetaminophen (TYLENOL) 500 mg tablet, Take 1 tablet (500 mg total) by mouth every 8 (eight) hours as needed, Disp: , Rfl: ??? albuterol HFA (PROVENTIL HFA,VENTOLIN HFA,PROAIR HFA) 90 mcg/actuation inhaler, Inhale 2 puffs every 8 (eight) hours as needed, Disp: , Rfl: ??? Asacol HD 800 mg EC tablet, Take 1 tablet (800 mg total) by mouth 2 (two) times a day, Disp: , Rfl: ??? aspirin 81 mg enteric coated tablet, Take 1 tablet (81 mg total) by mouth daily, Disp: , Rfl: ??? buPROPion XL (WELLBUTRIN XL) 150 mg 24 hr tablet, Take 1 tablet (150 mg total) by mouth daily, Disp: , Rfl: ??? carvediloL (COREG) 3.125 mg tablet, Take 1 tablet (3.125 mg total) by mouth 2 (two) times a daywith meals, Disp: , Rfl: ??? cholecalciferol (VITAMIN D-3) 5,000 unit tablet, Take 1 tablet (5,000 Units total) by mouth daily, Disp: , Rfl: ??? cholestyramine (QUESTRAN) 4 gram powder, Take 1 packet (4 g total) by mouth nightly as needed, Disp: , Rfl: ??? cilostazol (PLETAL) 50 mg tablet, Take 1 tablet (50 mg total) by mouth 2 (two) times a day, Disp: , Rfl: ??? clopidogreL (PLAVIX) 75 mg tablet, Take 1 tablet (75 mg total) by mouth daily, Disp: , Rfl: ??? cyanocobalamin, vitamin B-12, 5,000 mcg tablet, sublingual, Place 5,000 mcg under the tongue daily, Disp: , Rfl: ??? diclofenac sodium 3 % gel, Apply 1 Application topically, Disp: , Rfl: ??? fluticasone propionate (FLONASE) 50 mcg/actuation nasal spray, Administer 1 spray into each nostril daily as needed, Disp: , Rfl: ??? folic acid (FOLVITE) 1 mg tablet, Take 1 tablet (1 mg total) by mouth daily, Disp: , Rfl: ??? levothyroxine (SYNTHROID) 150 mcg tablet, Take 1 tablet (150 mcg total) by mouth every morning,Disp: , Rfl: ??? pantoprazole DR (PROTONIX) 40 mg EC tablet, Take 1 tablet (40 mg total) by mouth 2 (two) times a day before breakfast and dinner, Disp: 60 tablet, Rfl: 0 ??? polysaccharide iron complex (NU-IRON) 150 mg iron capsule, Take 1 capsule (150 mg total) by mouth every other day, Disp: , Rfl: ??? pravastatin (PRAVACHOL) 10 mg tablet, Take 1 tablet (10 mg total) by mouth nightly, Disp: , Rfl: ??? sodium bicarbonate 650 mg tablet, Take 1 tablet (650 mg total) by mouth 3 (three) times a day, Disp: 1000 tablet, Rfl: 3 ??? tiZANidine (ZANAFLEX) 4 mg tablet, daily (Patient not taking: Reported on 09/26/2022), Disp: , Rfl: ??? triamcinolone (KENALOG) 0.1 % cream, Apply topically 2 (two) times a day Feet and legs, Disp: ,Rfl: ??? VIAGRA 50 mg tablet, Take 1 tablet (50 mg total) by mouth as needed (Patient not taking: Reported on 01/13/2024), Disp: , Rfl: ??? vit C,I-Qy-crmvc-lutein-zeaxan (PreserVision AREDS-2) 250-90-40-1 mg capsule, Take 1 capsule bymouth every 12 hours, Disp: , Rfl: ALLERGIES Allergies Allergen Reactions ??? Gluten ??? Lactose Stomach upset SOCIAL HISTORY Social History Tobacco Use ??? Smoking status: Former Current packs/day: 0.00 Types: Cigarettes Quit date: 2011 Years since quittin.2 ??? Smokeless tobacco: Never Substance and Sexual Activity ??? Drug use: Not Currently ??? Sexual activity: Defer Alcohol Use: Not At Risk (08/23/2023) AUDIT-C ??? Frequency of Alcohol Consumption: Never ??? Average Number of Drinks: Not on file ??? Frequency of Binge Drinking: Not on file FAMILY HISTORY Family History Problem Relation Age of Onset ??? Cerebral aneurysm Father Family history of cerebral aneurysm - (Added by TW Zan) ??? Hypertension Other REVIEW OF SYSTEMS Review of [...] no immediate complications REVIEW OF X-RAYS/STUDIES Radiographs taken of the bilateral knee were reviewed, which reveal Severe degenerative changes with subchondral sclerosis, osteophyte formation, and diminished joint space. No acute fracture or dislocation noted. Significant atherosclerosis noted on radiographs. DIAGNOSIS Diagnoses and all orders for this visit: Right knee pain, unspecified chronicity (Primary) - XR Knee Right 3 View; Future Left knee pain, unspecified chronicity - XR Knee Left 3 View; Future Primary osteoarthritis of both knees PLAN I explained the nature of the [...] shall symptoms warrant it at that time. I also discussed theatherosclerotic findings on x-rays today with the patient and his son. The patient's son states he will reach out to the patient's primary care provider to inform them. Patient is already on a statin. The patient may contact the office with any further questions or concerns. KIRSTIE Salas documented in this encounter Plan of Treatment Not on file documented as of this encounter Procedures Procedure Name Priority Date/Time Associated Diagnosis Comments UT ARTHROCENTESIS ASPIR&/INJ MAJOR JT/BURSA W/O US Routine 01/27/2024 2:00 PM CDT Primary osteoarthritis of both knees UT ARTHROCENTESIS ASPIR&/INJ MAJOR JT/BURSA W/O US Routine 01/27/2024 2:00 PM CDT Primary osteoarthritis of both knees documented in this encounter Results * XR Knee Left 3 View (01/27/2024 [...] D: ??01/27/2024 5:50 PM T: Report ID: [id number] Reading Location: ??[id number] Procedure Note Julius Lopez MD - 01/27/2024 [...] by Julius Lopez M.D. T: Report ID: [id number] Reading Location: [place] [address] Gayle THACKER IMG XR PROCEDURES Final R esult * XR Knee Right 3 View (01/27/2024 [...] D: ??01/27/2024 5:50 PM T: Report ID: [id number] Reading Location: ??[id number] Procedure Note Julius Lopez MD - 01/27/2024 [...] by Julius Lopez M.D. T: Report ID: [id number] Reading Location: [id number] Gayle THACKER IMG XR PROCEDURES Final R esult * UT ARTHROCENTESIS ASPIR&/INJ MAJOR JT/BURSA W/O US (01/27/2024 2:00 PM CDT) Narrative Gayle Lawson PA - 01/27/2024 2:00 PM CDT Gayle Lawson PA ? 01/27/2024 ??2:32 PM Large Joint (Hip, Knee, Shoulder) Injection: [...] the procedure well with no immediate complications Result [facility] Gayle THACKER IN CLINIC/BEDSIDE ORDERAB LES Final Result * UT ARTHROCENTESIS ASPIR&/INJ MAJOR JT/BURSA W/O US (01/27/2024 2:00 PM CDT) Narrative Gayle Lawson PA - 01/27/2024 2:00 PM CDT Gayle Lawson PA ? 01/27/2024 ??2:32 PM Large Joint (Hip, Knee, Shoulder) Injection: [...] the procedure well with no immediate complications Result [facility] Gayle THACKER IN CLINIC/BEDSIDE ORDERAB LES Final Result documented in this encounter Visit Diagnoses Diagnosis Right knee pain, unspecified chronicity- Primary Left knee pain, unspecified chronicity Primary osteoarthritis of both knees Left knee pain, unspecified chronicity Right knee pain, unspecified chronicity documented in this encounter Administered Medications Inactive Administered Medications - up to 3 most recent administrations Medication Order MAR Action Action Date Dose Rate Site lidocaine (XYLOCAINE) 20 mg/mL (2 %) injection 1 mL 1 mL, other, One-Time Injection, Starting on Sat01/27/24 at 1400, For 1 dose, Indications: Administration of Local AnesthesiaIndications:Administ ration of Local Anesthesia Given 01/27/2024 2:00 PM CDT 1 mL Right Knee lidocaine (XYLOCAINE) 20 mg/mL (2 %) injection 1 mL 1 mL, other, One-Time Injection, Starting on Sat01/27/24 at 1400, For 1 dose, Indications: Administration of Local AnesthesiaIndications:Administ ration of Local Anesthesia Given 01/27/2024 2:00 PM CDT 1 mL Left Knee triamcinolone (KENALOG) 40 mg/mL injection 40 mg 40 mg, intra-articular, One-Time Injection, Starting on Sat01/27/24 at 1400, For 1 doseIndications:Primary osteoarthritis of both knees Given 01/27/2024 2:00 PM CDT 40 mg Right Knee triamcinolone (KENALOG) 40 mg/mL injection 40 mg 40 mg, intra-articular, One-Time Injection, Starting on Sat01/27/24 at 1400, For 1 doseIndications:Primary osteoarthritis of both knees Given 01/27/2024 2:00 PM CDT 40 mg Left Knee documented in this encounter Care Teams Date Pitter Relationship Specialty Start Date End Date Nickie Negron MD [address] [place] [address] PCP - General 01/13/19 documented as of this encounter
--- OUTSIDE RECORDS SUMMARY | 2024-10-27 10:53 | XMS_ITS | Encounter Summary ---
Author Organization [facility] Healthcare Address [address] [place] [address] Care Team Providers Care Gas Engineer Name Role Phone Nickie Negron MD Primary Care Provider +1- [phone] Reason for Referral * Procedure (Routine) - Authorized Specialty Diagnoses / Procedures Referred By Roula t Referred To Contact Diagnoses Bilateral shoulder pain, unspecified chronicity Procedures Large Joint (Hip, Knee, Shoulder) Injection: L glenohumeral [facility] [address] [place] [address] Phone: tel: fax: [facility] Medical Group Referral ID Status Reason Start Date Expiration Date V isits Requested Visits Authorized [id number] Authorized 04/17/2024 05/17/2025 1 1 Reason for Visit * Reason Comments Pain Injections Pain Injections Encounter Details Date Type Department Care Team (Late st Contact Info) Description 04/17/2024 10:00 AM CDT Office Visit [facility] Medical Group Orthopedics and Sports Medicine [address] [place] [address] [address] [place] [id number] Gayle Lawson PA [address] [place] [address] [address] [place] [address] Bilateral shoulder pain, unspecified chronicity (Primary Dx) Social History Tobacco Use Types [...] on file 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 FOLLOW UP VISIT CHIEF COMPLAINT No chief complaint on file. HISTORY OF PRESENT ILLNESS Julius Andrade is a pleasant 73 y.o. male who presents to clinic for follow up of his bilateral glenohumeral osteoarthritis. The patient was last seen on 01/13/2024, at which time He received an intraarticular injection, which provided excellent relief for about 1-2 months on the left and continues to provide relief on the right. The patient presents today for a repeat injection and denies anyother complaints at this time. REVIEW OF SYSTEMS [...] negative Large Joint (Hip, Knee, Shoulder) Injection: L [...] visit: Bilateral shoulder pain, unspecified chronicity (Primary) PLAN I provided Mr. Andrade with [...] Procedure Name Priority Date/Time Associated Diagnosis Comments IN ARTHROCENTESIS ASPIR&/INJ MAJOR JT/BURSA W/O US Routine 04/17/2024 10:00 AM CDT Bilateral shoulder pain, unspecified chronicity documented in this encounter Results * IN ARTHROCENTESIS ASPIR&/INJ MAJOR JT/BURSA W/O US (04/17/2024 10:00 AM CDT) Narrative Gayle Lawson PA - 04/17/2024 10:00 AM CDT Gayle Lawson PA ? 04/17/2024 10:18 AM Large Joint (Hip, Knee, Shoulder) Injection: [...] procedure well with no immediate complications Result [facility] Gayle THACKER IN CLINIC/BEDSIDE ORDERAB LES Final Result documented in this encounter Visit Diagnoses Diagnosis Bilateral shoulder pain, unspecified chronicity- Primary documented in this encounter Administered Medications Inactive Administered Medications - up to 3 most recent administrations Medication Order MAR Action Action Date Dose Rate Site lidocaine (XYLOCAINE) 20 mg/mL (2 %) injection 1 mL 1 mL, other, One-Time Injection, Starting on Sat04/17/24 at 1000, For 1 dose, Indications: Administration of Local AnesthesiaIndications:Adminis tration of Local Anesthesia Given 04/17/2024 10:00 AM CDT 1 mL Left Shoulder triamcinolone (KENALOG) 40 mg/mL injection 40 mg 40 mg, intra-articular, One-Time Injection, Starting on Sat04/17/24 at 1000, For 1 doseIndications:Bilateral shoulder pain, unspecified chronicity Given 04/17/2024 10:00 AM CDT 40 mg Left Shoulder documented in this encounter Historical Medications * This list may reflect changes made after this encounter. lidocaine HCL 4 % cream 2 (two) times a day as needed (pain) 08/15/2023 vitamins A,C,L-tvpl-gtvymo (PreserVision AREDS) 4,296 mcg-226 mg-90 mg capsule 07/28/2024 added in this encounter Care Teams Gas Engineer Relationship Specialty Start Date End Date Nickie Negron MD [address] [facility] [address] [place] [address] PCP - General 01/13/19 documented as of this encounter
--- OUTSIDE RECORDS SUMMARY | 2024-10-27 10:53 | XMS_ITS | Encounter Summary ---
Author Organization [facility] Healthcare Address [address] [place] [address] Care Team Providers Care Audit Intern Name Role Phone Nickie Negron MD Primary Care Provider +1- [phone] Reason for Referral * Procedure (Routine) - Authorized Specialty Diagnoses / Procedures Referred By Contac t Referred To Contact Diagnoses Primary osteoarthritis of both knees Procedures Large Joint (Hip, Knee, Shoulder) Injection: L knee Gayle Lawson PA [address] [facility] [address] [place] [address] Phone: tel: fax: [facility] Medical Group Referral ID Status Reason Start Date Expiration Date V isits Requested Visits Authorized [id number] Authorized 05/11/2024 06/10/2025 1 1 * Procedure (Routine) - Authorized Specialty Diagnoses / Procedures Referred By Contac t Referred To Contact Diagnoses Primary osteoarthritis of both knees Procedures Large Joint (Hip, Knee, Shoulder) Injection: R knee Gayle Lawson PA [address] [facility] [address] [place] [address] Phone: tel: fax: [facility] Medical Group Referral ID Status Reason Start Date Expiration Date V isits Requested Visits Authorized [id number] Authorized 05/11/2024 06/10/2025 1 1 Reason for Visit * Reason Comments Injections Injections Encounter Details Date Type Department Care Team (Late st Contact Info) Description 05/11/2024 10:00 AM CDT Office Visit [facility] Medical Group Orthopedics and Sports Medicine [address] [place] [address] [address] [place] [address] Gayle Lawson PA [address] [facility] [address] [place] [address] Primary osteoarthritis of both knees (Primary Dx) [...] on file 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 The patient was last seen on 01/27/2024, at which time He received an intraarticular [...] Procedure Name Priority Date/Time Associated Diagnosis Comments [place] ARTHROCENTESIS ASPIR&/INJ MAJOR JT/BURSA W/O US Routine 05/11/2024 10:00 AM CDT Primary osteoarthritis of both knees [place] ARTHROCENTESIS ASPIR&/INJ MAJOR JT/BURSA W/O US Routine 05/11/2024 10:00 AM CDT Primary osteoarthritis of both knees documented in this encounter Results * [place] ARTHROCENTESIS ASPIR&/INJ MAJOR JT/BURSA W/O US (05/11/2024 10:00 AM CDT) Narrative Gayle Lawson PA - 05/11/2024 10:00 AM CDT Gayle Lawson PA ? 05/11/2024 10:17 AM Large Joint (Hip, Knee, Shoulder) Injection: [...] IN CLINIC/BEDSIDE ORDERAB LES Final Result * [place] ARTHROCENTESIS ASPIR&/INJ MAJOR JT/BURSA W/O US (05/11/2024 10:00 AM CDT) Narrative Gayle Lawson PA - 05/11/2024 10:00 AM CDT Gayle Lawson PA ? 05/11/2024 10:17 AM Large Joint (Hip, Knee, Shoulder) Injection: [...] 1 mL, other, One-Time Injection, Starting on Sat05/11/24 at 1000, For 1 dose, Indications: Administration of Local AnesthesiaIndications:Administ ration of Local Anesthesia Given 05/11/2024 10:00 AM CDT 1 mL Right Knee lidocaine (XYLOCAINE) 20 mg/mL (2 %) injection 1 mL 1 mL, other, One-Time Injection, Starting on Sat05/11/24 at 1000, For 1 dose, Indications: Administration of Local AnesthesiaIndications:Administ ration of Local Anesthesia Given 05/11/2024 10:00 AM CDT 1 mL Left Knee triamcinolone (KENALOG) 40 mg/mL injection 40 mg 40 mg, intra-articular, One-Time Injection, Starting on Sat05/11/24 at 1000, For 1 doseIndications:Primary osteoarthritis of both knees Given 05/11/2024 10:00 AM CDT 40 mg Right Knee triamcinolone (KENALOG) 40 mg/mL injection 40 mg 40 mg, intra-articular, One-Time Injection, Starting on Sat05/11/24 at 1000, For 1 doseIndications:Primary osteoarthritis of both knees Given 05/11/2024 10:00 AM CDT 40 mg Left Knee documented in this encounter Care Teams Audit Intern Relationship Specialty Start Date End Date Nickie Negron MD [address] [facility] [address] [place] [address] PCP - General 01/13/19 documented as of this encounter
--- OUTSIDE RECORDS SUMMARY | 2024-10-27 10:53 | XMS_ITS | Encounter Summary ---
Author Organization [facility] Medical Group Address [address] 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 Gender Identity Not on file Sexual Orientation Not on file documented as of this encounter Plan of Treatment Not on file documented as of this encounter Procedures Procedure Name Priority Date/Time Associated Diagnosis Comments CBC WITH AUTO DIFFERENTIAL Routine 03/07/2023 documented in this encounter Results * CBC with auto differential (03/07/2023) Blood us Historical Provider LAB BLOOD ORDERABLES Shruthi l Result documented in this encounter Visit Diagnoses Not on filedocumented in this encounter Care Teams Manager Photography Relationship Specialty Start Date End Date Nickie Negron MD [address] [facility] [address] [place] [address] PCP - General 01/13/19 documented as of this encounter
--- OUTSIDE RECORDS SUMMARY | 2024-10-27 10:53 | XMS_ITS | Encounter Summary ---
Author Organization [facility] Healthcare Address [address] [place] [address] Care Team Providers Care Propulsion Systems Engineer Name Role Phone Nickie Negron MD Primary Care Provider +1- [phone] Reason for Visit * Reason Comments Fall * Consultation (Routine) - Closed Specialty Diagnoses / Procedures Referred By Contac t Referred To Contact Neurology Diagnoses Repeated falls Nickie Negron MD [address] [place] [address] Phone: tel: fax: 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 (Primary Dx); Repeated falls Social History Tobacco Use Types Packs/Day Years [...] on file 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 Gender Identity Not on file Sexual Orientation Not on file documented as of this encounter Last Filed Vital Signs Vital Sign Reading Time Taken Comments Blood Pressure 136/78 06/18/2024 1:59 PM CDT Pulse 86 06/18/2024 1:59 PM CDT Temperature - - Respiratory Rate - - Oxygen Saturation 99% 06/18/2024 1:59 PM CDT Inhaled Oxygen Concentration - - Weight 68.9 kg (152 lb) 06/18/2024 1:59 PM CDT Height 157.5 cm (5' 2 ) 06/18/2024 1:59 PM CDT Body Mass Index 27.8 06/18/2024 1:59 PM CDT documented in this encounter Progress Notes * Gera Perrin MD - 06/18/2024 2:00 PM CDT Images from the original note were not included. Patient ID: Julius Andrade is a 73 y.o. male Chief Complaint: Julius Andrade is being seen as a new consult at the request of Nickie Negron MD for frequent falls History of Present Illness: This is a 73-year-old male with a history CKD stage 3, coronary artery disease, bilateral carotid artery stenosis, and peripheral vascular disease who presents for evaluation of frequent falls. I personally reviewed a recent CT of the head which per my interpretation appears to be within normal limits for his age. I do not note any evidence for normal pressure hydrocephalus. I also reviewed his CT of the cervical spine which shows mild canal stenosis up to moderate at C5-C6. History is obtainedwith the assistance from his son. Patient has been having frequent falls over the last year. He states that this occurs due to him tripping over his feet. He does use a walker but will sometimes forget to use this. He denies having any lightheaded or dizzy sensation prior to falling. He denies having any tremors. He also denies any numbness or tingling in his feet. Review of Systems As above. All other systems were reviewed and found to be normal or non-contributory. Past Medical History: Diagnosis Date Asthma Celiac sprue Chronic kidney disease, stage III (moderate) ([facility]) Coronary artery disease Crohn's colitis (CMS/HCC) ([facility]) DJD (degenerative joint disease) GERD (gastroesophageal reflux [...] Types: Cigarettes Quit date: 2011 Years since quittin.6 Smokeless tobacco: Never Substance and Sexual Activity Drug use: Not Currently Sexual activity: Defer Alcohol Use: Not At Risk (08/23/2023) AUDIT-C Frequency of Alcohol Consumption: Never Average Number of Drinks: Not on file Frequency of Binge Drinking: Not on file Allergies Allergen Reactions Gluten Other (See comments) wheat Lactose Stomach upset Current Outpatient Medications Medication Sig Dispense Refill calcium carbonate (OS-RADHA) 1,500 mg (600 mg elemental) tablet Take 1 tablet every day by oral routein the morning. acetaminophen (TYLENOL) 500 mg tablet Take 1 [...] tablet (81 mg total) by mouth daily benzonatate (TESSALON) 100 mg capsule Take 1 capsule (100 mg total) by mouth 3 (three) times a day buPROPion XL (WELLBUTRIN XL) 150 mg 24 hr tablet Take 1 tablet (150 mg total) by mouth daily carvediloL (COREG) 3.125 mg tablet Take 1 tablet (3.125 mg total) by mouth 2 (two) times a day withmeals cefdinir (OMNICEF) 300 mg capsule Take 1 capsule (300 mg total) by mouth every 12 (twelve) hours cholecalciferol (VITAMIN D-3) 5,000 unit tablet Take [...] gel Apply 1 Application topically fluticasone propionate (FLONASE) 50 mcg/actuation nasal spray Administer 1 spray into each nostril daily as needed folic acid (FOLVITE) 1 mg tablet Take 1 tablet (1 mg total) by mouth daily levothyroxine (SYNTHROID) 150 mcg tablet Take 1 tablet (150 mcg total) by mouth every morning lidocaine HCL 4 % cream Apply 1 application twice a day by topical route. pantoprazole DR (PROTONIX) 40 mg EC tablet Take 1 tablet (40 mg total) by mouth 2 (two) times a daybefore breakfast and dinner 60 tablet 0 polysaccharide iron complex (NU-IRON) 150 mg iron capsule Take 1 capsule (150 mg total) by mouth every other day pravastatin (PRAVACHOL) 10 mg tablet Take 1 tablet (10 mg total) by mouth nightly sodium bicarbonate 650 mg tablet Take 1 tablet (650 mg total) by mouth 3 (three) times a day 1000 tablet 3 tiZANidine (ZANAFLEX) 4 mg tablet daily triamcinolone (KENALOG) 0.1 % cream Apply topically 2 (two) times a day Feet and legs VIAGRA 50 mg tablet Take 1 tablet (50 mg total) by mouth as needed vit C,D-Ms-zltia-lutein-zeaxan (PreserVision AREDS-2) 250-90-40-1 mg capsule Take 1 capsule by mouth every 12 hours vitamins A,C,L-jbnr-sohvos (PreserVision AREDS) 4,296 mcg-226 mg-90 mg capsule No current facility-administered medications for this visit. Physical Exam Vitals Ht 157.5 cm (5' 2 ) Wt 68.9 kg (152 lb) BMI 27.80 kg/m?? Neurological exam: Constitutional: Appears well and in no acute distress Mental Status: Alert and oriented times three, Speech is fluent. Normal comprehension. Cranial Nerves: pupils are equal, round, and reactive to light, Extraocular movements are intact, visual field full, face symmetric, facial sensation intact, palate rise symmetric, shoulder shrug appropriate in strength, tongue midline, no atrophy or fasciculations Motor: Normal bulk and tone noted. Strength: 5/5 throughout in both proximal and distal muscles Sensory: Intact to pinprick and vibration Reflexes: 2/4 throughout Gait: significant kyphosis and asymmetric posture with leaning towards the right Coordination: Good FNF, No obvious invol mvmts Assessments and Plan 1. Repeated falls - Ambulatory referral to Neurology - Ambulatory referral to Home Health; Future 2. 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 He does not have any evidence of parkinsonism, peripheral neuropathy, myelopathy, or stroke on examination. His recent CT head also did not show any evidence of normal pressure hydrocephalus and his CT of the cervical spine does not show any severe stenosis that would cause impingement of the cord. On examination he does have a significantly kyphotic posture and leans towards the right. I suspect that his primary issue is related to his posture. I discussed that he should try to use his walker at all times to avoid falls. I will place a referral for him to work with home physical therapy. 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 calcium carbonate (OS-RADHA) 1,500 mg (600 mg elemental) tablet Take 1 tablet every day by oral route in the morning. 04/08/2024 cefdinir (OMNICEF) 300 mg capsule Take 1 capsule (300 mg total) by mouth every 12 (twelve) hours 07/28/2024 benzonatate (TESSALON) 100 mg capsule Take 1 capsule (100 mg total) by mouth 3 (three) times a day 07/28/2024 added in this encounter Orders Outpatient Referral Count Last Ordered Date Fir st Ordered Date AMB REFERRAL TO NEUROLOGY 1 06/18/2024 documented in this encounter Care Teams Propulsion Systems Engineer Relationship Specialty Start Date End Date Nickie Negron MD [address] [facility] [address] [place] [address] PCP - General 01/13/19 documented as of this encounter
--- OUTSIDE RECORDS SUMMARY | 2024-10-27 10:53 | XMS_ITS | Encounter Summary ---
Author Organization [facility] Healthcare Address [address] [place] [address] Care Team Providers Care Cryptographic Clerk Name Role Phone Nickie Negron MD Primary Care Provider +1- [phone] Reason for Referral * Diagnostic Imaging (Routine) - Closed Specialty Diagnoses / Procedures Referred By Roula mcmillan Referred To Contact Diagnoses Stenosis of right carotid artery Procedures US Carotids Duplex Bilateral Zac Parada, VINNY [address] [facility] [address] [facility] [place] [address] Phone: tel: fax: [facility] [address] [place] [phone] Referral ID Status Reason Start Date Expiration Date Visits Re quested Visits Authorized [id number] Closed 02/28/2023 03/29/2024 1 1 Reason for Visit * Diagnostic Imaging (Routine) - Closed Specialty Diagnoses / Procedures Referred By Roula mcmillan Referred To Contact Diagnoses Stenosis of right carotid artery Procedures US Carotids Duplex Bilateral Zac Parada, VINNY [address] [facility] [address] [facility] [place] [address] Phone: tel: fax: [facility] [address] [place] [phone] Referral ID Status Reason Start Date Expiration Date Visits Re quested Visits Authorized [id number] Closed 02/28/2023 03/29/2024 1 1 Encounter Details Date Type Department Care Team (Latest Contact Info) Description 02/27/2024 9:15 AM CDT - 02/27/2024 11:59 PM CDT Hospital Encounter [facility] [address] [place] [address] Stenosis of right carotid artery Discharge Disposition: Discharge to home or self [...] on file 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 REASON FOR EXAM Carotid stenosis. COMMENTS ON THE RIGHT Peak systolic velocity of CCA of 69, ICA of 107, end-diastolic velocity 32. Smooth heterogenous plaques in proximal ICA. ??ECA velocity of 199. ?? Antegrade flow noted. ??Vertebral artery velocity of 49. COMMENTS ON THE LEFT Peak systolic velocity of CCA of 36. ??Left ICA is occluded. ??Retrograde flow noted in the external carotid artery. ??Antegrade flow noted left vertebral artery. OVERALL IMPRESSION 1. Less than 50% stenosis right internal carotid artery with chronically occluded left ICA. 2. Antegrade flow noted bilateral vertebral arteries. 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
--- OUTSIDE RECORDS SUMMARY | 2024-10-27 10:53 | XMS_ITS | Encounter Summary ---
Author Organization [facility] Address [address] [facility] [address] [place] [id number] Care Team Providers Care Gear Grinding Machine Operator Name Role Phone Nickie Negron MD Primary Care Provider [phone] Reason for Referral * Diagnostic Imaging (Routine) - Closed Specialty Diagnoses / Procedures Referred By Roula mcmillan Referred To Contact Diagnoses Stenosis of right carotid artery Procedures US Carotids Duplex Bilateral Zac Parada NP [address] [address] [place] [address] [place] [address] Phone: tel: fax: [facility] [address] [place] [phone] Referral ID Status Reason Start Date Expiration Date Visits Re quested Visits Authorized [id number] Closed 02/28/2023 03/29/2024 1 1 * Diagnostic Imaging (Routine) - Closed Specialty Diagnoses / Procedures Referred By Roula mcmillan Referred To Contact Diagnoses Atherosclerosis of cahto artery of both lower extremities with intermittent claudication (HCC) Procedures US Arterial Doppler Lower Extremity Bilateral Zac Parada NP [address] [place] [address] [place] [address] Phone: tel: fax: [facility] [address] [place] [phone] Referral ID Status Reason Start Date Expiration Date Visits Re quested Visits Authorized [id number] Closed 02/28/2023 03/29/2024 1 1 Reason for Visit * Reason Comments Follow-up 1 year carotid steno sis L carotid occlusion Encounter Details Date Type Department Care Team (Late st Contact Info) Description 02/28/2023 9:00 AM CDT Office Visit [facility] Vascular and Vein Surgery [address] [facility] [address] [place] [address] Zac Parada NP [address] [facility] [address] [place] [address] Stenosis of right carotid artery (Primary Dx); Atherosclerosis of cahto artery of both lower extremities with intermittent claudication (HCC); Peripheral vascular disease (CMS/HCC) (HCC); Carotid artery stenosis, unilateral; Moderate essential hypertension Social History Tobacco Use Types Packs/Day Years [...] on file 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 Gender Identity Not on file Sexual Orientation Not on file documented as of this encounter Last Filed Vital Signs Vital Sign Reading Time Taken Comments Blood Pressure 140/77 02/28/2023 9:13 AM CDT Pulse 83 02/28/2023 9:13 AM CDT Temperature - - Respiratory Rate - - Oxygen Saturation - - Inhaled Oxygen Concentration - - Weight 69.4 kg (153 lb) 02/28/2023 9:13 AM CDT Height 160 cm (5' 3 ) 02/28/2023 9:13 AM CDT Body Mass Index 27.1 02/28/2023 9:13 AM CDT documented in this encounter Progress Notes * Zac Parada, CREDENTIALING COORDINATOR - 02/28/2023 9:00 AM CDT Images from the original note were not included. Subjective/Objective Patient ID: Julius Andrade is a 72 y.o. male. Chief Complaint Carotid stenosis, claudication History of Present Illness 72-year-old male with history of lower extremity arterial occlusive disease and carotid stenosis returns today for scheduled follow-up. He has a known chronically occluded left internal carotid artery and has a mild right internal carotid artery stenosis that is being followed. He also has known bilateral lower extremity claudication with prior atherectomy and balloon angioplasty of his left popliteal artery on 05/04/2015 to treat disabling claudication. Patient states he has been doing well since his previous visit denies any interim focal or lateralizing neurological deficits consistent with TIA or stroke. He states his lower extremity claudication has remained stable with no worsening pro gression. He denies any nonhealing ulcers or symptoms suggestive of ischemic rest pain. He has beencompliant with ongoing risk factor modifications and has no complaints or concerns at this time. 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, Disp: , Rfl: polysaccharide iron complex (NU-IRON) 150 mg iron [...] mouth as needed, Disp: , Rfl: vit C,M-Jo-pnrvz-lutein-zeaxan (PreserVision AREDS-2) 250-90-40-1 mg capsule, Take 1 capsule by mouth every 12 hours, Disp: , Rfl: carvediloL (COREG) 3.125 mg tablet, Take 3.125 mg by mouth 2 (two) times a day with meals (Patient not taking: Reported on 09/26/2022), Disp: , Rfl: pantoprazole DR (PROTONIX) 40 mg EC tablet, Take 1 tablet (40 mg total) by mouth 2 (two) times a day before breakfast and dinner (Patient not taking: Reported on 09/26/2022), Disp: 60 tablet, Rfl: 0 tiZANidine (ZANAFLEX) 4 mg tablet, daily (Patient not taking: Reported on 09/26/2022), Disp: , Rfl: Allergies Allergen Reactions Gluten [...] Social History Tobacco Use Smoking status: Former Packs/day: 1.00 Types: Cigarettes Quit date: 2011 Years since quittin.3 Smokeless tobacco: Never Substance and Sexual Activity Drug use: Not Currently Sexual activity: Defer Alcohol Use: Not At Risk (09/26/2022) AUDIT-C Frequency of Alcohol Consumption: Never Average Number of Drinks: Patient does not drink Frequency of Binge Drinking: Never Review of Systems Constitutional: No change in appetite. No recent weight loss. No fevers,chills or sweats. HENT: No trouble swallowing. No tinnitus. Eyes: No visual disturbances. Respiratory: No shortness of breath. No cough or sputum production. No wheezing. Cardiovascular: No chest pain. No palpitations. Gastrointestinal: No abdominal pain. No nausea, vomiting or diarrhea. Genitourinary: No dysuria. No hematuria. Extremities: No claudication. No rest pain. No ulcerations. No infections. Musculoskeletal: No joint pains. No back pain. No myalgias. Neurologic: No dizziness. No syncope. No weakness. Endocrine: No polydipsia, polyphagia or polyuria. Skin: No rashes. No discoloration. Hematologic: No bleeding. No easy bruising. Psychiatric: No anxiety. No behavioral changes. No mood swings. Physical Exam Constitutional: Alert and oriented. Eyes: Extraocular movements full, sclerae anicteric. HENT: Head atraumatic and normocephalic. Neck is supple. No carotid bruits. Chest: Effort normal. Breath sounds normal. Cardiovascular: S1 and S2 are normal. No murmurs, rubs or gallops appreciated. Extremities: Lower extremities are warm well perfused. Bilateral femoral pulse palpable, pedal pulses nonpalpable. Abdominal: Soft, nontender, no masses. Normal bowel sounds. Musculoskeletal: Normal range of motion. Neurologic: Cranial nerves 2-12 intact. Strength and sensation intact bilaterally. Skin: Warm and dry. No rashes. No discoloration. Hematologic/Lymphatic: No adenopathy, no ecchymoses. Psychiatric: Normal mood and affect. Behavior normal.Judgment normal. Diagnostic Imaging The following diagnostic imaging was reviewed and visualized by myself. Lower extremity arterial Doppler studies performed 02/28/2023 revealed artificially elevated ABIs of both lower extremities due to vessel noncompressibility. Waveform analysis revealed triphasic but blunted tibial waveforms suggestive of mild distal ischemia of right lower extremity and moderate distal ischemia with biphasic tibial waveforms of his left lower extremity. Carotid duplex performed 02/28/2023 revealed chronically occluded left internal carotid artery and a stable mild right internal carotid artery stenosis measuring less than 50%. Assessment/Plan Diagnoses and all orders for this visit: Stenosis of right carotid artery (I65.21) (Primary) - US Carotids Duplex Bilateral; Future Atherosclerosis of cahto artery of both lower extremities with intermittent claudication (HCC) (I70.213) - US Arterial Doppler Lower Extremity Bilateral; Future Peripheral vascular disease (CMS/HCC) (HCC) (I73.9) Assessment & Plan: Impression: Stable nondisabling claudication both lower extremities. No rest pain or nonhealing ulcers. Plan: No surgical intervention currently. Recommend ongoing risk factor modifications and follow-upIn 1 year for re-evaluation with repeat lower extremity arterial Doppler surveillance. Carotid artery stenosis, unilateral (I65.29) Assessment & Plan: Impression: Stable right internal carotid artery stenosis with a chronically occluded left internalcarotid artery. Patient remains asymptomatic. Plan: No surgical intervention currently needed. Recommend ongoing risk factor modifications and follow-up in 1 year for re-evaluation with repeat carotid duplex surveillance. Moderate essential hypertension (I10) Assessment & Plan: Impression: Stable chronic hypertension. Plan: Medications reviewed and recommend continuing daily antihypertensive regimen as directed by patient's primary care physician. Portions of this note was created with M*Modal voice recognition software. Airline Ticket Agent variances may be present. Zac Parada NP Cosigned by Solomon Martinez MD at 03/05/2023 8:46 AM CDT documented in this encounter Miscellaneous Notes * Assessment & Plan Note - Zac Parada NP - 03/04/2023 10:14 PM CDT Associated Problem(s): Moderate essential hypertension Impression: Stable chronic hypertension. Plan: Medications reviewed and recommend continuing daily antihypertensive regimen as directed by patient's primary care physician. * Assessment & Plan Note - Zac Parada NP - 03/04/2023 10:12 PM CDT Associated Problem(s): Carotid artery stenosis, unilateral Impression: Stable right internal carotid artery stenosis with a chronically occluded left internalcarotid artery. Patient remains asymptomatic. Plan: No surgical intervention currently needed. Recommend ongoing risk factor modifications and follow-up in 1 year for re-evaluation with repeat carotid duplex surveillance. * Assessment & Plan Note - Zac Parada NP - 03/04/2023 10:11 PM CDT Associated Problem(s): Peripheral vascular disease (CMS/HCC) (HCC) Impression: Stable nondisabling claudication both lower extremities. No rest pain or nonhealing ulcers. Plan: No surgical intervention currently. Recommend ongoing risk factor modifications and follow-upIn 1 year for re-evaluation with repeat lower extremity arterial Doppler surveillance. documented in this encounter Plan of Treatment Not on file documented as of this encounter Results * US Arterial Doppler Lower Extremity Bilateral (02/27/2024 11:04 AM CDT) Anatomical Region Laterality Modality Vascular Bilateral Ultrasound 02/27/2024 Narrative 03/03/2024 1:59 PM CDT [employer] Job ID: [id number] [employer] Document ID: [id number] Dictated date/time: [id number] LOWER EXTREMITY ARTERIAL DOPPLER STUDY REASON FOR [...] on the left. Job ID/Internal Job ID: ??[id number] Zac Parada NP G US PROCEDURES Final Resul t * US Carotids Duplex Bilateral (02/27/2024 10:54 AM CDT) Anatomical Region Laterality Modality Vascular Bilateral Ultrasound 02/27/2024 Narrative 03/03/2024 1:59 PM CDT [employer] Job ID: [id number] [employer] Document ID: [id number] Dictated date/time: [id number] CAROTID DUPLEX. REASON FOR EXAM Carotid stenosis. [...] bilateral vertebral arteries. Job ID/Internal Job ID: ??[id number] Zac Parada CREDENTIALING COORDINATOR IMG US PROCEDURES Final Resul t documented in this encounter Visit Diagnoses Diagnosis Stenosis of right carotid artery- Primary Occlusion and stenosis of carotid artery without mention of cerebral infarction Atherosclerosis of cahto artery of both lower extremities with intermittent claudication (HCC) Peripheral vascular disease (CMS/HCC) (HCC) Unspecified peripheral vascular disease Carotid artery stenosis, unilateral Moderate essential hypertension Stenosis of right carotid artery Occlusion and stenosis of carotid artery without mention of cerebral infarction Atherosclerosis of cahto artery of both lower extremities with intermittent claudication (HCC) documented in this encounter Care Teams Gear Grinding Machine Operator Relationship Specialty Start Date End Date Nickie Negron MD [phone] [address] PCP - General 01/13/19 documented as of this encounter
--- OUTSIDE RECORDS SUMMARY | 2024-10-27 10:54 | XMS_ITS | Encounter Summary ---
Author Organization [facility] Healthcare Address [address] [place] [address] Care Team Providers Care Province Archivist Name Role Phone Nickie Negron MD Primary Care Provider [phone] Reason for Visit * Auth/Cert Specialty Diagnoses / Procedures Referred By Roula t Referred To Contact Diagnoses History of Crohn's disease Ulcer of esophagus without bleeding History of Crohn's disease [Z87.19] Ulcer of esophagus without bleeding [K22.10] Procedures ESOPHAGOGASTRODUODENOSCOPY COLONOSCOPY Referral ID Status Reason Start Date Expiration Date Visits Re quested Visits Authorized [id number] 1 1 Encounter Details Date Type Department Care Team (Latest Contact Info) Description 10/05/2022 1:15 PM YARN HANDLER - 10/05/2022 1:45 PM YARN HANDLER Surgery [facility] [address] [place] [address] Italia Rosenthal MD [address] [address] ESOPHAGOGASTRODUODENOSCOPY BIOPSY Surgery Details Date/Time Status Location OR Service Patient Class Case Class Case Type Trauma Case? 10/05/2022 1:15 PM Posted [facility] ENDOSCOPY GI 05 Gastroenterology Outpatient Elective Panel 1 Procedure [facility]RB Anes Op Region Wound Class Comments ESOPHAGOGASTRODUODENOSCOPY BIOPSY N/A Monitor Anesthesia Care Class II - Clean Contaminated COLON BIOPSY N/A Monitor Anesthesia Care Colon Class II - Clean Contaminated Surgeon Surgeon Role Service Panel Italia Rosenthal MD Primary Gastroenterology 1 documented in this encounter Social History Tobacco Use Types Packs/Day Years Used Date Smoking Tobacco: Former Cigarettes Q uit: 2012 Smokeless Tobacco: Never Tobacco Cessation:Counseling Given: Not [...] on file Legal Sex Male 5:49 AM YARN HANDLER Gender Identity Not on file Sexual Orientation Not on file documented as of this encounter Last Filed Vital Signs Vital Sign Reading Time Taken Comments Blood Pressure 167/97 10/05/2022 12:44 PM YARN HANDLER Pulse 106 10/05/2022 12:44 PM YARN HANDLER Temperature 36.6 ??C (97.9 ??F) 10/05/2022 12:[address] Respiratory Rate 20 10/05/2022 12:44 PM YARN HANDLER Oxygen Saturation 96% 10/05/2022 12:44 PM YARN HANDLER Inhaled Oxygen Concentration - - Weight 63.5 kg (140 lb) 09/26/2022 4:06 PM YARN HANDLER Height 160 cm (5' 3 ) 09/26/2022 4:06 PM YARN HANDLER Body Mass Index 24.8 09/26/2022 4:06 PM YARN HANDLER documented in this encounter Discharge Instructions * Discharge Instructions* Ruth Camarillo RN - 10/05/2022 3:05 PM YARN HANDLER Images from the original note were not included. EGD WHAT YOU NEED TO KNOW: During an endoscopy, your healthcare provider will use a scope to see inside your esophagus, stomach, and first part of the small bowel. DISCHARGE INSTRUCTIONS: Medicines: Medicines may be given to decrease stomach acid that can irritate your esophagus. Take your medicine as directed. Contact your healthcare provider if you think your medicine is not helping or if you have side effects. Tell him if you are allergic to any medicine. Keep a list of the medicines, vitamins, and herbs you take. Include the amounts, and when and why you take them. Bring the list or the pill bottles to follow-up visits. Carry your medicine list with you in case of an emergency. Follow up with your healthcare provider as directed: Write down your questions so you remember to ask them during your visits. Nutrition: You may eat foods you normally eat. Chew your food well. Eat soft foods if you still have problems swallowing. Soft foods include applesauce, bananas, cooked cereal, cottage cheese, eggs, pudding, and yogurt. Ask for more information on what types of food to eat. Seek care immediately or call 911 if: You vomit blood. You are not able to swallow any food. You have a fast heartbeat, chest pain, or sudden trouble breathing. Your abdomen suddenly becomes tender and hard. ?? 2017 [employer] Information is for End User's use only and may not be sold, redistributed or otherwise used for commercial purposes. All illustrations and images included in CareNotes?? are the copyrighted property of [employer], [employer]. or [employer]. The above information is an educational therapy teacher only. It is not intended as medical advice for individual conditions or treatments. Talk to your doctor, nurse or pharmacist before following any medical regimen to see if it is safe and effective for you. General Instructions: Call MD if you have any of the following symptoms: Fever over 101 degrees Chills Persistent nausea or vomiting Sever or unrelieved pain 2. Go home and rest for 4-6 hours 3. Start with a light meal today then advance diet as tolerated 4. If you experience nausea or vomiting, stop your present intake and go back to clear liquids Additional Diet Instructions: n/a 5. Do not drive until tomorrow or put yourself at risk of falls or injury due to residual side effects of medications given, unless otherwise directed 6. Do not sign any legal documents today 7. Do not drink any alcohol today 8. We strongly advise that a responsible person be with you the rest of the day 9. Return to normal activity tomorrow. AFTER AN UPPER ENDOSCOPY: You may have a sore throat or hoarseness for several days. Treat it as you would any sore throat. Report to your doctor any pain, palpitations, severe heartburn, difficulty swallowing, breathing orspitting up blood. Colonoscopy WHAT YOU NEED TO KNOW: A colonoscopy is a procedure to examine the inside of your colon (intestine) with a scope. Polyps or tissue growths may have been removed during your colonoscopy. It is normal to feel bloated and to have some abdominal discomfort. You should be passing gas. If you have hemorrhoids or you had polypsremoved, you may have a small amount of bleeding. DISCHARGE INSTRUCTIONS: Seek care immediately if: You have a large amount of bright red blood in your bowel movements. Your abdomen is hard and firm and you have severe pain. You have sudden trouble breathing. Contact your healthcare provider if: You develop a rash or hives. You have a fever within 24 hours of your procedure. . You have not had a bowel movement for 3 days after your procedure. You have questions or concerns about your condition or care. Activity: Do not lift, strain, or run for 3 days after your procedure. Rest after your procedure. You have been given medicine to relax you. Do not drive or make important decisions until the day after your procedure. Return to your normal activity as directed. Relieve gas and discomfort from bloating by lying on your right side with a heating pad on your abdomen. You may need to take short walks to help the gas move out. Eat small meals until bloating is relieved. Follow up with your healthcare provider as directed: Write down your questions so you remember to ask them during your visits. ?? 2016 [employer]. Information is for End User's use only and may not be sold, redistributed or otherwise used for commercial purposes. All illustrations and images included in CareNotes?? are the copyrighted property of [employer] or [employer]. The above information is an educational therapy teacher only. It is not intended as medical advice for individual conditions or treatments. Talk to your doctor, nurse or pharmacist before following any medical regimen to see if it is safe and effective for you. General Instructions: Call MD if you have any of the following symptoms: Fever over 101 degrees Chills Persistent nausea or vomiting Sever or unrelieved pain 2. Go home and rest for 4-6 hours 3. Start with a light meal today then advance diet as tolerated 4. If you experience nausea or vomiting, stop your present intake and go back to clear liquids Additional Diet Instructions: n/a 5. Do not drive until tomorrow or put yourself at risk of falls or injury due to residual side effects of medications given, unless otherwise directed 6. Do not sign any legal documents today 7. Do not drink any alcohol today 8. We strongly advise that a responsible person be with you the rest of the day 9. Return to normal activity tomorrow. AFTER A LOWER ENDOSCOPY: You may have mild abdominal bloating and tenderness. To relieve this, allow gas to pass. Report to your doctor any large amounts of bright red blood in your stools. HANDLER documented in this encounter Medications at Time [...] (10 mg total) by mouth nightly 05/19/2019 vit C,B-Db-wnadp-lute in-zeaxan (PreserVision AREDS-2) 250-90-40-1 mg capsule Take 1 capsule by mouth every 12 hours albuterol HFA (PROVENTIL HFA,VENTOLIN HFA,PROAIR HFA) 90 mcg/actuation inhaler Inhale 2 puffs every 8 (eight) hours as needed fluticasone propionate (FLONASE) 50 mcg/actuation nasal spray Administer 1 spray into each nostril daily as needed cholecalciferol (VITAMIN D-3) 25 mcg (1,000 unit) tablet Take 1 tablet (1,000 Units total) by mouth daily 4 levothyroxine (SYNTHROID) 125 mcg tablet Take 1 tablet (125 mcg total) by mouth fuel cell engineer before breakfast [address] (PROTONIX) 40 mg EC tablet Take 1 tablet (40 mg total) by mouth 2 (two) times a day before breakfast and dinner 60 tablet 06/18/2022 4 sodium bicarbonate 650 mg tablet Take 2 tablets (1,300 mg total) by mouth 3 (three) times a day 540 tablet 3 02/09/2022 3 tiZANidine (ZANAFLEX) 4 mg tablet daily 4 triamcinolone (KENALOG) 0.1 % cream Apply topically 2 (two) times a day Feet and legs 4 VIAGRA 50 mg tablet Take 1 tablet (50 mg total) by mouth as needed 07/13/2019 4 documented as of this encounter Discharge Disposition Disposition Code Departure Means Destination Discharge to home or self care documented in this encounter H&P Notes * Italia Rosenthal MD - 10/05/2022 1:34 PM CST Italia Rosenthal MD Attending Provider: Italia Rosenthal MD PCP: Nickie Negron MD PATIENT: Rachele Andrade : 1950 Date of Visit: 10/05/2022 HPI: Rachele Andrade is an 71 y.o. male who presents for personal history of colon polyps. 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 (CMS/HCC) ([facility]) Ex-smoker Fall involving ice skates Family history of stroke Gastroenteritis Gastroesophageal reflux disease with esophagitis Gastrointestinal hemorrhage History of acute renal failure History of colonic polyps History of Crohn's disease Leukocytosis Hyperlipidemia Hyperuricemia Hypokalemia due to loss of potassium Hypomagnesemia Hypophosphatemia Hypotension due to blood loss Kidney stone Macrocytosis Mixed anxiety and depressive disorder Moderate essential hypertension Mucoid diarrhea Osteoarthritis Osteoporosis Peripheral vascular disease (CMS/HCC) (HCC) Primary hypothyroidism Repeated falls Systemic inflammatory response syndrome (SIRS) (CMS/HCC) ([facility]) Traumatic hematoma of hand Inflammation of colonic mucosa Vitamin B12 deficiency (non anemic) Vitamin D deficiency Carotid artery stenosis, unilateral Benign prostatic hyperplasia with urinary obstruction Occlusion of left carotid artery Encounter for long-term (current) use of insulin (CMS/HCC) ([facility]) Bilateral carotid artery stenosis Melena Chronic kidney disease, stage III (moderate) ([facility]) Abdominal pain Past Medical History: Diagnosis Date Asthma Celiac sprue Chronic kidney disease, stage III (moderate) ([facility]) Coronary artery disease Crohn's colitis (CMS/HCC) ([facility]) DJD (degenerative joint disease) GERD (gastroesophageal reflux [...] Types: Cigarettes Quit date: 2011 Years since quittin.9 Smokeless tobacco: Never Substance and Sexual Activity Drug use: Not Currently Sexual activity: Defer Alcohol Use: Not At Risk Frequency of Alcohol Consumption: Never Average Number of Drinks: Patient does not drink Frequency of Binge Drinking: Never Medications Prior to Admission Medication Sig Dispense Refill Last Dose acetaminophen (TYLENOL) 500 mg tablet Take 500 mg by mouth every 8 (eight) hours as needed 10/03/2022 Asacol HD 800 mg EC tablet Take 800 mg by mouth 2 (two) times a day 10/04/2022 buPROPion XL (WELLBUTRIN XL) 150 mg 24 hr tablet Take 1 tablet by mouth daily 10/05/2022 cholecalciferol (VITAMIN D-3) 5,000 unit tablet Take 5,000 Units by mouth daily 10/04/2022 cholestyramine (QUESTRAN) 4 gram powder Take 4 g by mouth nightly as needed 10/02/2022 cilostazol (PLETAL) 50 mg tablet Take 50 mg by mouth 2 (two) times a day 10/04/2022 clopidogreL (PLAVIX) 75 mg tablet Take 75 mg by mouth daily Past Week cyanocobalamin, vitamin B-12, 5,000 mcg tablet, sublingual Place 5,000 mcg under the tongue daily 10/04/2022 fluticasone propionate (FLONASE) 50 mcg/actuation nasal spray Administer 1 spray into each nostril daily as needed 10/04/2022 folic acid (FOLVITE) 1 mg tablet Take 1 mg by mouth daily 10/04/2022 levothyroxine (SYNTHROID) 125 mcg tablet Take 125 mcg by mouth fuel cell engineer before breakfast 10/05/2022 pravastatin (PRAVACHOL) 10 mg tablet Take 10 mg by mouth nightly 10/04/2022 sodium bicarbonate 650 mg tablet Take 2 tablets (1,300 mg total) by mouth 3 (three) times a day (Patient taking differently: Take 650 mg by mouth daily) 540 tablet 3 09/26/2022 triamcinolone (KENALOG) 0.1 % cream Apply topically 2 (two) times a day Feet and legs 10/04/2022 vit C,Y-Ib-ewsif-lutein-zeaxan (PreserVision AREDS-2) 250-90-40-1 mg capsule Take 1 capsule by mouth every 12 hours 10/04/2022 albuterol HFA (PROVENTIL HFA,VENTOLIN HFA,PROAIR HFA) 90 mcg/actuation inhaler Inhale 2 puffs every8 (eight) hours as needed Unknown aspirin 81 mg enteric coated tablet Take 81 mg by mouth daily 10/02/2022 carvediloL (COREG) 3.125 mg tablet Take 3.125 mg by mouth 2 (two) times a day with meals (Patient not taking: Reported on 09/26/2022) Not Taking pantoprazole DR (PROTONIX) 40 mg EC tablet Take 1 tablet (40 mg total) by mouth 2 (two) times a daybefore breakfast and dinner (Patient not taking: Reported on 09/26/2022) 60 tablet 0 Not Taking polysaccharide iron complex (NU-IRON) 150 mg iron capsule Take 150 mg by mouth every other day 09/28/2022 tiZANidine (ZANAFLEX) 4 mg tablet daily (Patient not taking: Reported on 09/26/2022) Not Taking VIAGRA 50 mg tablet Take 50 mg by mouth as needed Unknown Allergies Allergen Reactions Gluten Lactose Stomach upset Travel Exposure: Travel Screening ALERT Blood pressure 167/97, pulse 106, temperature 36.6 ??C (97.9 ??F), temperature source Tympanic, resp. rate 20, height 160 cm (5' 3 ), weight 63.5 kg (140 lb), SpO2 96 %. Physical Exam Constitutional: he appears well-developed and well-nourished. Cardiovascular: Normal rate. Pulmonary/Chest: Breath sounds normal. Abdominal: Soft, non-tender. he exhibits no edema. Assessment & Plan: Colonoscopy and EGD Italia Rosenthal MD 10/05/2022 HANDLER documented in this encounter Procedure Notes * Italia Rosenthal MD - 10/05/2022 2:41 PM CST ProceduresProcedure: Colonoscopy with biopsy EGD with biopsy Indication: Pre-Op Diagnosis Codes: * History of Crohn's disease [Z87.19] * Ulcer of esophagus without bleeding [K22.10] Postop diagnosis: Antral gastritis biopsied Distal esophageal ulcer completely healed with clips still in place in Normal anastomotic site in the right side Left-sided diverticulosis Large internal and external hemorrhoids Random colonic biopsies taken Indication the alternates and the complication of this procedure which include but not limited to bleeding perforation missed lesions are explained to the patient patient fully understands the risk and benefits agrees to proceed Sedation per anesthesia EGD With the patient in the left lateral decubitus position, the Olympus GIF H 180 J upper endoscope was used to easily intubate the patient's esophagus and advanced to the 3rd portion of the duodenum. Careful inspection of the mucosa was made upon insertion and withdrawal of the endoscope with retroflexion in the stomach Findings Previously seen GE junction ulcer has completely healed Surendra Cook clip at the previous ulcer still seen Gastric antrum showed evidence of antral gastritis which was biopsied Duodenum normal in the bulb 2nd and 3rd portion No complications, blood loss or implants Colonoscopy Prep good With the patient in the left lateral decubitus position the Olympus cf H180AL colonoscope was introduced in the rectum and advanced easily to the anastomotic site. Careful inspection of the mucosa was made upon insertion and withdrawal of the endoscope Findings Anastomotic site was normal on the right side Left-sided diverticulosis noted Large internal and external hemorrhoids noted No masses, polyps, AVM, colitis seen No complications, blood loss or implants Assessment and plan Follow up biopsy report Follow-up in the office in 2 weeks Thank you very much for allowing me to share in the care of your patient. HANDLER documented in this encounter Miscellaneous Notes * Perioperative Nursing Note - Sol Garcia RN - 10/05/2022 2:32 PM YARN HANDLER Pt does not have cecum do to previous colectomy HANDLER * Pre-Procedure Instructions - Fe Jacques RN - 09/27/2022 9:11 AM YARN HANDLER Spoke with patient Levothyroxine, Wellbutrin hold asa 3 days out, plavix being held for 7 days per his doctors orders. Bring inhalers. HANDLER * Pre-Procedure Instructions - Rafael Ortiz RN - 09/26/2022 4:07 PM YARN HANDLER No alcohol or smoking 12 hours before surgery [place] teeth but do not swallow Shower or bathe, do no apply powders or lotions Expect to remove wigs, dentures, partials, contact lenses, body pairings and prosthesis Leave all jewelry and valuables at home Bring your glasses and hearing aide/s Make plans for responcible adult to drive you home or accompany you home Bring living will and/or power of retirement specialist paperwork if you have one Follow GI physician instructions regarding blood thinner and vitamins - aspirin/clopidogrel? Bring inhalers - albuterol if needed Take prep according to GI physician Please take the following medications with a sip of water the AM of procedure: Levoxyl Patient unsure what medications he takes as he has had recent changes. Instructed to bring in pill bottles and list to review. Patient instructed to arrive at 1215 at [facility] location for 1315 procedure. Covid - no symptoms Teaching performed by: Rafael Ortiz RN HANDLER documented in this encounter Plan of Treatment Not on file documented as of this encounter Procedures Procedure Name Priority Date/Time Associated Diagnosis Comments COLON BIOPSY 10/05/2022 2:17 PM YARN HANDLER History of Crohn's disease Ulcer of esophagus without bleeding ESOPHAGOGASTRODUODENOSCOPY BIOPSY 10/05/2022 2:17 PM YARN HANDLER History of Crohn's disease Ulcer of esophagus without bleeding POC BLOOD GAS AND CHEMISTRIE S, VENOUS Routine 10/05/2022 1:06 PM YARN HANDLER SURGICAL PATHOLOGY Routine 10/05/2022 12:00 AM YARN HANDLER History of Crohn's disease Ulcer of esophagus without bleeding documented in this encounter Results * (ABNORMAL) POC Blood Gas and Chemistries, Venous - (10/05/2022 1:06 PM YARN HANDLER) pH,rosa elena POC 7.34 7.32 - 7.43 [facility] pCO2, rosa elena POC 34(L) 40 - 50 mmHg [facility] pO2,rosa elena POC 37 mmHg [facility] Comment: Interpretive Data No reference range established. Current interpretive data was last revised 2020. HCO3, rosa elena (Calc) POC 18(L) 20 - 30 mmol/L [facility] Base excess, rosa elena POC -6 mmol/L [facility] Comment: Interpretive Data No reference range established. Current interpretive data was last revised 2020. Hemoglobin, rosa elena POC 14.6 13.0 - 17.5 g/dL [facility] Hematocrit, rosa elena POC 43.0 38.9 - 50.3 % [facility] Sodium, rosa elena POC 139 135 - 145 mmol/L [facility] Potassium, rosa elena POC 4.2 3.3 - 4.9 mmol/L [facility] Comment: Interpretive Data This method is not able to assess for hemolysis, which may falsely increase potassium concentrations. If further testing is needed to evaluate this result, consider in-laboratory plasma potassium. Current Interpretive Data was last revised on 2022. Glucose, rosa elena POC 85 70 - 199 mg/dL [facility] Ionized Calcium, rosa elena POC 5.00 4.50 - 5.20 mg/dL [facility] Blood 10/05/2022 1:06 PM YARN HANDLER 10/05/2022 1:06 PM YARN HANDLER Iatlia Rosenthal MD LAB POCT ORDERABLES - DEV ICE Final Result [facility] [address] Department [place] [address] * Surgical pathology (10/05/2022 12:00 AM YARN HANDLER) Tissue (Gastric/Stomach biopsy) 10/05/2022 2:27 PM YARN HANDLER Tissue (Colon, Biopsy) 10/05/2022 2:35 PM YARN HANDLER Narrative PATHOLOGY [facility] - 10/09/2022 9:00 AM YARN HANDLER [facility] Department of Pathology [address] [place] [id number] ?? Note to Patients: ??This report may contain a detailed description of human tissue sent by a health care provider to the laboratory for pathologic evaluation. ??The content of this report is essential for diagnosis and may provide important critical findings. ??This information may be unfamiliar to patients to review without a medical professional present. ?? It is advised that the patient review this report in the presence of a health care provider who can answer questions and explain the details. Final Report Patient Name: RACHELE ANDRADE : ??1950 (Age: 71) Gender: ??M Address: ??[address] [place], [place] [address] Hospital #: [id number] Service: Gastro Location: Patient Type: [facility] OUTPATIENT ? Taken: 10/05/2022 Received: 10/08/2022 Accessioned: 10/08/2022 Reported: 10/09/2022 Physician(s): Sylvie Tenorio M.D. Diagnosis: A) ??Stomach, biopsy ??: ? - Body type mucosa with reactive gastropathy (chemical gastritis). ? - Negative for H. pylori. B) ??Random colon biopsies ??: ? - Unremarkable colonic mucosa, no histopathologic abnormalities. Bryce Palmer M.D. Report Electronically Reviewed and Signed Out By ??Bryce Palmer M.D. 10/09/2022 09:00:20 Specimen(s) Received: A: Gastric biopsy B: Random colon biopsies Microscopic Description: Microscopic examination is performed. Clinical History: History of Crohn's disease, ulcer of esophagus without bleeding Gross Description A) ??Received in formalin labeled with the patient's identifiers and gastric biopsy are two angeles-white tissue fragments measuring 0.3 and 0.4 cm in greatest dimension. ??Entirely submitted in A1. ??Jar 0. B) ??Received in formalin labeled with the patient's identifiers and random colon biopsies are three angeles-white tissue fragments ranging from 0.2-0.5 cm in greatest dimension. ??Entirely submitted in B1. ??Jar 0. ?? dxbmhb/10/08/2022 12:21 KIRSTIE Adamson us Italia Rosenthal MD LAB PATHOLOGY ORDERABLES Final Result PATHOLOGY [facility] documented in this encounter Visit Diagnoses Diagnosis History of Crohn's disease Ulcer of esophagus without bleeding History of Crohn's disease Ulcer of esophagus without bleeding documented in this encounter Administered Medications Inactive Administered Medications - up to 3 most recent administrations Medication Order MAR Action Action Date Dose Rate Site famotidine (PEPCID) tablet 20 mg 20 mg, oral, Once, On Sat10/05/22 at 1315, For 1 dose, Pre-Op, Indications: gastroesophageal reflux diseaseIndications:gastroesop hageal reflux disease Given 10/05/2022 12:43 PM YARN HANDLER 20 mg Lactated Ringer's (LR) infusion 30 mL/hr, intravenous, Continuous, Starting on Sat10/05/22 at 1315, Pre-Op, Rate/Dose Verify 10/05/2022 2:19 PM YARN HANDLER 30 mL/hr New Bag 10/05/2022 1:08 PM YARN HANDLER 30 mL/hr 30 mL/hr documented in this encounter Discontinued Medications Medication Sig Discontinue Reason Start Date End Da te diclofenac sodium (VOLTAREN) 1 % gel Apply 4 g topically 4 (four) times a day as needed Therapy completed 09/26/2022 documented as of this encounter Historical Medications * This list may reflect changes made after this encounter. polysaccharide iron complex (NU-IRON) 150 mg iron capsuleIndicatio ns:Iron Deficiency Anemia Take 1 capsule (150 mg total) by mouth every other day clopidogreL (PLAVIX) 75 mg tablet Take 1 tablet (75 mg total) by mouth daily aspirin 81 mg enteric coated tablet Take 1 tablet (81 mg total) by mouth daily triamcinolone (KENALOG) 0.1 % cream Apply topically 2 (two) times a day Feet and legs 4 tiZANidine (ZANAFLEX) 4 mg tablet daily 4 added in this encounter Active and Recently Administered Medications Times are shown in YARN HANDLER. Scheduled Medication Order 10/03/2022 10/04/2022 10/05/2022 acetaminophen (TYLENOL) tablet 975 mg 975 mg (rounded from 1,000 mg), oral, Once, On Sat10/05/22 at 1315, For 1 dose, Pre-Op, Indications: Pre-Emptive Analgesia 1315 (Due) famotidine (PEPCID) tablet 20 mg (COMPLETED) 20 mg, oral, Once, On Sat10/05/22 at 1315, For 1 dose, Pre-Op, Indications: gastroesophageal reflux disease 1243 (Given - Provid er: Sol Garcia RN) Continuous Medication Order 10/03/2022 10/04/2022 10/05/2022 Lactated Ringer's (LR) infusion 30 mL/hr, intravenous, Continuous, Starting on Sat10/05/22 at 1315, Pre-Op, 1308 (New Bag - Prov ider: Sol Garcia RN)1419 (Rate/Dose Verify - Provider: Anabel London CRNA)1438 (Anesthesia Volume Adjustment - Provider: Anabel London CRNA)1950 (Due: Stopped) PRN Medication Order 10/03/2022 10/04/2022 10/05/2022 lidocaine (XYLOCAINE) 10 mg/mL (1 %) injection 2-10 mg 2-10 mg (0.2-1 mL), other, Once as needed, pain with IV placement, Starting on Sat10/05/22 at 1238, For 1 dose, Pre-Op, Administer volume needed to infiltrate IV site. documented in this encounter Orders Medications Ordered That Amaury ht Not Have Been Administered Count Last Ordered Date First Ordered Date acetaminophen (TYLENOL) tablet 975 mg 1 06/2022 lidocaine (XYLOCAINE) 10 mg/ mL (1 %) injection 2-10 mg 1 10/05/2022 Discharge Count Last Ordered Date First Orde red Date DISCHARGE PATIENT 1 10/05/2022 documented in this encounter Care Teams Province Archivist Relationship Specialty Start Date End Date Nickie Negorn MD [address] [place] [address] PCP - General 01/13/19 documented as of this encounter
--- OUTSIDE RECORDS SUMMARY | 2024-10-27 10:54 | XMS_ITS | Encounter Summary ---
Author Organization [facility] Medical Group Address [address] [place] [address] Care Team Providers Care Audiologist Name Role Phone Nickie Negron MD Primary Care Provider +1- [phone] Encounter Details Date Type Department Care Team (Late st Contact Info) Description 02/25/2023 Telephone [facility] Nephrology at [address] [place] [phone] Shree Gutiérrez MD [address] [place] [address] [address] [place] [address] Social History Tobacco Use Types Packs/Day Years [...] on file Legal Sex Male 5:49 AM COMPLIANCE COUNSEL Gender Identity Not on file Sexual Orientation Not on file documented as of this encounter Miscellaneous Notes * Addendum Note - Baylee Hernandez MA - 02/26/2023 8:55 AM CDTAddended by: BAYLEE HERNANDEZ on: 02/26/2023 08:55 AM Modules accepted: Orders * Telephone Encounter - Baylee Hernandez MA - 02/26/2023 8:54 AM CDT Pt called back and was inoformed. Lab orders sent to Dr. Negron's office. * Telephone Encounter - Baylee Hernandez MA - 02/26/2023 8:50 AM CDT Left message on pt's recorder to call back for lab results. * Telephone Encounter - Shree Gutiérrez MD - 02/25/2023 5:14 PM CDT Please let him know labs remain stable and would repeat a BMP in 6 months documented in this encounter Plan of Treatment Scheduled Orders Name Type Priority Associated Diagnoses Orde r Schedule Basic metabolic panel Lab Routine Stage 3b chronic kidney disease (HCC) Expected: 08/26/2023, Expires: 02/27/2024 documented as of this encounter Visit Diagnoses Diagnosis Stage 3b chronic kidney disease (HCC)- Primary documented in this encounter Care Teams Audiologist Relationship Specialty Start Date End Date Nickie Negron MD [address] [address] PCP - General 01/13/19 documented as of this encounter
--- OUTSIDE RECORDS SUMMARY | 2024-10-27 10:54 | XMS_ITS | Encounter Summary ---
Author Organization [facility] Healthcare Address [address] [place] [address] Care Team Providers Care Cook Cold Meat Name Role Phone Nickie Negron MD Primary Care Provider +1- [phone] Reason for Referral * Diagnostic Imaging (Routine) - Closed Specialty Diagnoses / Procedures Referred By Contac t Referred To Contact Diagnoses Age-related osteoporosis without current pathological fracture Procedures Dexa Axial Skeleton Bone Density 1 or 2 Site Nickie Negron MD [address] [place] [address] Phone: tel: fax: [address] [phone] Referral ID Status Reason Start Date Expiration Date Visits Re quested Visits Authorized [id number] Closed 01/09/2022 02/08/2023 1 1 Reason for Visit * Diagnostic Imaging (Routine) - Closed Specialty Diagnoses / Procedures Referred By Contac t Referred To Contact Diagnoses Age-related osteoporosis without current pathological fracture Procedures Dexa Axial Skeleton Bone Density 1 or 2 Site Nickie Negron MD [address] [place] [address] Phone: tel: fax: [address] [phone] Referral ID Status Reason Start Date Expiration Date Visits Re quested Visits Authorized [id number] Closed 01/09/2022 02/08/2023 1 1 Encounter Details Date Type Department Care Team (Latest Contact Info) Description 06/20/2022 9:30 AM CDT - 06/20/2022 11:59 PM CDT Hospital Encounter [facility] Medical Office Bldg 1 [facility] [address] [place] [address] Age-related osteoporosis without current pathological fracture Discharge Disposition: Discharge to home or self care Social History Tobacco Use Types Packs/Day Years Used Date Smoking Tobacco: Former Smokeless Tobacco: Never Alcohol Use Standard Drinks/Week Comments Not Currently 0 (1 standard drink = 0.6 oz pur e alcohol) AUDIT-C Answer Date Recorded Q1: How often do you have a drink containing alcohol? Never 06/12/2022 Q2: How many drinks containi ng alcohol do you have on a typical day when you are drinking? Patient does not drink Q3: How often do you have si x or more drinks on one occasion? 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 ART CURATOR Gender Identity Not on file Sexual Orientation Not on file documented as of this encounter Medications at Time of Discharge acetaminophen (TYLENOL) 500 mg tablet Take 1 tablet (500 mg total) by mouth every 8 (eight) hours as needed Asacol HD 800 mg EC tablet Take 1 tablet (800 mg total) by mouth 2 (two) times a day 05/11/2021 buPROPion XL (WELLBUTRIN XL) 150 mg 24 [...] by mouth 2 (two) times a day cyanocobalamin, vitamin B-12, 5,000 mcg tablet, sublingual Place 5,000 mcg under the tongue daily folic acid (FOLVITE) 1 mg tablet Take 1 tablet (1 mg total) by mouth daily 01/27/2020 pravastatin (PRAVACHOL) 10 mg tablet Take 1 tablet (10 mg total) by mouth nightly 05/19/2019 vit C,N-Cq-vitrg-lute in-zeaxan (PreserVision AREDS-2) 250-90-40-1 mg capsule Take [...] (1,000 Units total) by mouth daily 4 diclofenac sodium (VOLTAREN) 1 % gel Apply 4 g topically 4 (four) times a day as needed 2 levothyroxine (SYNTHROID) 125 mcg tablet Take 1 tablet (125 mcg total) by mouth tire tester before breakfast [address] (PROTONIX) 40 mg EC tablet Take 1 tablet (40 mg total) by mouth 2 (two) times a day before breakfast and dinner 60 tablet 06/18/2022 4 sodium bicarbonate 650 mg tablet Take 2 tablets (1,300 mg total) by mouth 3 (three) times a day 540 tablet 3 02/09/2022 3 VIAGRA 50 mg tablet Take 1 tablet (50 mg total) by mouth as needed 07/13/2019 4 documented as of this encounter Discharge Disposition Disposition Code Departure Means Destination Discharge to home or self care documented in this encounter Plan of Treatment Not on file documented as of this encounter Procedures Procedure Name Priority Date/Time Associated Diagnosis Comments DEXA AXIAL SKELETON BONE DENSITY 1 OR MORE SITES Schedule Routine, Read Routine (OP Routine) 06/20/2022 9:50 AM CDT Age-related osteoporosis without current pathological fracture documented in this encounter Results * Dexa Axial Skeleton Bone Density 1 or 2 Site (06/20/2022 9:50 AM CDT) Anatomical Region Laterality Modality Body N/A Mammography 06/20/2022 6:03 PM CDT Narrative 06/20/2022 6:05 PM CDT EXAM DESCRIPTION: ?? DEXA AXIAL SKELETON BONE DENSITY 1 OR MORE SITES REASON FOR STUDY: ?71 y/o ?? year old ?? M ??with given history of screening. 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 61.5 ??inches ? Maximum height: 61.5 inches ? Weight: 142.5 pounds Risk factors: Prior fracture and glucocorticoids. COMPARISON: None available. FINDINGS: AP LUMBAR SPINE L1-L4: Total BMD is ?? 0.922 ??g/cm2 T-score is -1.5 LEFT HIP: Total BMD is 0.599 g/cm2 T-score is -2.9 Femoral neck BMD is 0.621 g/cm2 T-score is -2.3 FRAX: FRAX not reported due to T-scores of hip, femoral neck and/or spine being at or below -2.5 (Osteoporosis). IMPRESSION: ?? Osteoporosis REFERENCE: Bone mineral density: ? Normal (T-score above or = -1.0) ? Low bone mass ??(T-score between -1.0 and -2.5) replaces the previously used term osteopenia ? Osteoporosis (T-score = or below -2.5) Medical evaluation for secondary causes of low bone mineral density may be appropriate. FRAX is a World Health Organization validated fracture risk assessment tool that calculates a person's 10 year probability of a major osteoporosis related fracture and hip fracture. ??According to the National Osteoporosis Foundation guidelines, postmenopausal women and men age 50 or older with low bone mass and a 10 year probability of a major osteoporosis related fracture = or greater than 20% or a 10 year probability of a hip fracture = or greater than 3% should be considered for treatment. For further information, including treatment recommendations, please refer to the 2013 ISCD Official Positions (http://www.iscd.org) and the NOF's Clinician's Guide to Prevention and Treatment of Osteoporosis (http://www.nof.org/professionals/clinical-guidelines) THIS IS AN ELECTRONICALLY VERIFIED FINAL REPORT 06/20/2022 6:05 PM - Electronically signed by ??Virginia Collado M.D. TB: TB D: ??06/20/2022 6:05 PM T: ??06/20/2022 6:05 PM Report ID: [id number] Reading Location: ??[id number] Procedure Note CancholaVirginia MD - 06/20/2022 EXAM DESCRIPTION: DEXA AXIAL SKELETON BONE DENSITY 1 OR MORE SITES REASON FOR STUDY: 71 y/o year old M with given history ofscreening. 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 COMPARISON: None available. FINDINGS: AP LUMBAR SPINE L1-L4: Total BMD is 0.922 g/cm2 T-score is -1.5 LEFT HIP: Total BMD is 0.599 g/cm2 T-score is -2.9 Femoral neck BMD is 0.621 g/cm2 T-score is -2.3 FRAX: FRAX not reported due to T-scores of hip, femoral neck and/or spine beingat or below -2.5 (Osteoporosis). IMPRESSION: Osteoporosis REFERENCE: Bone mineral density: Normal (T-score above or = -1.0) Low bone mass (T-score between -1.0 and -2.5) replaces thepreviously used term osteopenia Osteoporosis (T-score = or below -2.5) Medical evaluation for secondary causes of low bone mineral density may be appropriate. FRAX is a World Health Organization validated fracture risk assessmenttool that calculates a person's 10 year probability of a major osteoporosisrelated fracture and hip fracture. According to the National OsteoporosisFoundation guidelines, postmenopausal women and men age 50 or older with low bonemass and a 10 year probability of a major osteoporosis related fracture = or greater than 20% or a 10 year probability of a hip fracture = or greaterthan 3% should be considered for treatment. For further information, including treatment recommendations, please referto the 2013 ISCD Official Positions (http://www.iscd.org) and the NOF's Clinician's Guide to Prevention and Treatment of Osteoporosis (http://www.nof.org/professionals/clinical-guidelines) THIS IS AN ELECTRONICALLY VERIFIED FINAL REPORT 06/20/2022 6:05 PM - Electronically signed by Virginia Collado M.D. TB: TB Report ID: [id number] Reading Location: [place] [address] Nickie Negron MD IMG DXA PROCEDURES Final R esult documented in this encounter Visit Diagnoses Diagnosis Age-related osteoporosis without current pathological fracture documented in this encounter Care Teams Cook Cold Meat Relationship Specialty Start Date End Date Nickie Negron MD [address] [address] PCP - General 01/13/19 documented as of this encounter
--- OUTSIDE RECORDS SUMMARY | 2024-10-27 10:54 | XMS_ITS | Encounter Summary ---
Author Organization [facility] Healthcare Address [address] [place] [address] Care Team Providers Care Sugarcane Planter Name Role Phone Nickie Negron MD Primary Care Provider +1- [phone] Reason for Visit * Auth/Cert Specialty Diagnoses / Procedures Referred By Roula t Referred To Contact Diagnoses History of Crohn's disease Ulcer of esophagus without bleeding History of Crohn's disease [Z87.19] Ulcer of esophagus without bleeding [K22.10] Procedures ESOPHAGOGASTRODUODENOSCOPY COLONOSCOPY Referral ID Status Reason Start Date Expiration Date Visits Re quested Visits Authorized [id number] 1 1 Encounter Details Date Type Department Care Team (Latest Contact Info) Description 10/05/2022 11:55 AM ROUTE SPECIALIST - 10/05/2022 3:40 PM ROUTE SPECIALIST Hospital Encounter [facility] GI Lab [address] [place] [address] Italia Rosenthal MD [address] [address] History of Crohn's disease; Ulcer of esophagus without bleeding Discharge Disposition: Discharge to home or self [...] on file Legal Sex Male 5:49 AM ROUTE SPECIALIST Gender Identity Not on file Sexual Orientation Not on file documented as of this encounter Last Filed Vital Signs Vital Sign Reading Time Taken Comments Blood Pressure 140/89 10/05/2022 3:25 PM ROUTE SPECIALIST Pulse 74 10/05/2022 3:25 PM ROUTE SPECIALIST Temperature 36.7 ??C (98.1 ??F) 10/05/2022 2:46 PM CS T Respiratory Rate 21 10/05/2022 3:25 PM ROUTE SPECIALIST Oxygen Saturation 100% 10/05/2022 3:25 PM ROUTE SPECIALIST Inhaled Oxygen Concentration - - Weight 63.5 kg (140 lb) 09/26/2022 4:06 PM ROUTE SPECIALIST Height 160 cm (5' 3 ) 09/26/2022 4:06 PM ROUTE SPECIALIST Body Mass Index 24.8 09/26/2022 4:06 PM ROUTE SPECIALIST documented in this encounter Discharge Instructions * Discharge Instructions* Ruth Camarillo RN - 10/05/2022 3:05 PM ROUTE SPECIALIST Images from the original note were not [...] suddenly becomes tender and hard. ?? 2017 [employer] Information is for End User's use only and may not be sold, redistributed or otherwise used for commercial purposes. All illustrations and images included in CareNotes?? are the copyrighted property of [employer]. or [employer]. The above information is an supervisor braiding only. It is not intended as medical [...] ask them during your visits. ?? 2016 [employer]. Information is for End User's use only and may not be sold, redistributed or otherwise used for commercial purposes. All illustrations and images included in CareNotes?? are the copyrighted property of [employer]. or [employer]. The above information is an supervisor braiding only. It is not intended as medical [...] of bright red blood in your stools. 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 ([facility]/HCC) ([facility]) Ex-smoker Fall involving ice skates Family history [...] diarrhea Osteoarthritis Osteoporosis Peripheral vascular disease (CMS/HCC) ([facility]) Primary hypothyroidism Repeated falls Systemic inflammatory response syndrome (SIRS) (CMS/HCC) ([facility]) Traumatic hematoma of hand Inflammation of colonic mucosa Vitamin B12 deficiency (non anemic) Vitamin D deficiency Carotid artery stenosis, unilateral Benign prostatic hyperplasia with urinary obstruction Occlusion of left carotid artery Encounter for long-term (current) use of insulin ([facility]) ([facility]) Bilateral carotid artery stenosis Melena Chronic kidney disease, stage III (moderate) ([facility]) Abdominal pain Past Medical History: Diagnosis Date Asthma Celiac sprue Chronic kidney disease, stage III (moderate) ([facility]) Coronary artery disease Crohn's colitis (CMS/[facility]) ([facility]) DJD (degenerative joint disease) GERD (gastroesophageal reflux [...] mcg tablet Take 125 mcg by mouth jewel hole gauger before breakfast 10/05/2022 pravastatin (PRAVACHOL) 10 mg tablet Take 10 mg by mouth nightly 10/04/2022 sodium bicarbonate 650 mg tablet Take 2 tablets (1,300 mg total) by mouth 3 (three) times a day (Patient taking differently: Take 650 mg by mouth daily) 540 tablet 3 09/26/2022 triamcinolone (KENALOG) 0.1 % cream Apply topically 2 (two) times a day Feet and legs 10/04/2022 vit C,A-Jj-jbjwb-lutein-zeaxan (PreserVision AREDS-2) 250-90-40-1 mg capsule Take 1 [...] Colonoscopy and EGD Italia Rosenthal MD 10/05/2022 E SPECIALIST documented in this encounter Procedure Notes * [...] share in the care of your patient. E SPECIALIST documented in this encounter Miscellaneous Notes * Perioperative Nursing Note - Sol Garcia RN - 10/05/2022 2:32 PM ROUTE SPECIALIST Pt does not have cecum do to previous colectomy E SPECIALIST * Pre-Procedure Instructions - Fe Jacques RN - 09/27/2022 9:11 AM ROUTE SPECIALIST Spoke with patient Levothyroxine, Wellbutrin hold asa 3 days out, plavix being held for 7 days per his doctors orders. Bring inhalers. E SPECIALIST * Pre-Procedure Instructions - Rafael Ortiz RN - 09/26/2022 4:07 PM ROUTE SPECIALIST No alcohol or smoking 12 hours before surgery [place] teeth but do not swallow Shower or bathe, do no apply powders or lotions Expect to remove wigs, dentures, partials, contact lenses, body pairings and prosthesis Leave all jewelry and valuables at home Bring your glasses and hearing aide/s Make plans for responcible adult to drive you home or accompany you home Bring living will and/or power of insurance defense attorney paperwork if you have one Follow GI [...] Patient instructed to arrive at 1215 at [facility] location for 1315 procedure. Covid - no symptoms Teaching performed by: Rafael Ortiz RN E SPECIALIST documented in this encounter Plan of Treatment Not on file documented as of this encounter Procedures Procedure Name Priority Date/Time Associated Diagnosis Comments COLON BIOPSY 10/05/2022 2:17 PM ROUTE SPECIALIST History of Crohn's disease Ulcer of esophagus without bleeding ESOPHAGOGASTRODUODENOSCOPY BIOPSY 10/05/2022 2:17 PM ROUTE SPECIALIST History of Crohn's disease Ulcer of esophagus without bleeding POC BLOOD GAS AND CHEMISTRIE S, VENOUS Routine 10/05/2022 1:06 PM ROUTE SPECIALIST SURGICAL PATHOLOGY Routine 10/05/2022 12:00 AM ROUTE SPECIALIST History of Crohn's disease Ulcer of esophagus without bleeding documented in this encounter Results * (ABNORMAL) POC Blood Gas and Chemistries, Venous - (10/05/2022 1:06 PM ROUTE SPECIALIST) pH,rosa elena POC 7.34 7.32 - 7.43 [facility] pCO2, rosa elena POC 34(L) 40 - 50 mmHg [facility] pO2,rosa elena POC 37 mmHg [facility] Comment: Interpretive Data No reference range established. Current interpretive data was last revised 2020. HCO3, rosa elena (Calc) POC 18(L) 20 - 30 mmol/L [facility] Base excess, rosa elena POC -6 mmol/L [facility] Comment: Interpretive Data No reference range established. Current interpretive data was last revised 2020. Hemoglobin, rosa elena POC 14.6 13.0 - 17.5 g/dL [facility] Hematocrit, rosa elena POC 43.0 38.9 - 50.3 % [facility] Sodium, rosa elena POC 139 135 - 145 mmol/L [facility] Potassium, rosa elena POC 4.2 3.3 - 4.9 mmol/L [facility] Comment: Interpretive Data This method is not able to assess for hemolysis, which may falsely increase potassium concentrations. If further testing is needed to evaluate this result, consider in-laboratory plasma potassium. Current Interpretive Data was last revised on 2022. Glucose, rosa elena POC 85 70 - 199 mg/dL [facility] Ionized Calcium, rosa elena POC 5.00 4.50 - 5.20 mg/dL [facility] Blood 10/05/2022 1:06 PM ROUTE SPECIALIST 10/05/2022 1:06 PM ROUTE SPECIALIST us Italia Rosenthal MD LAB POCT ORDERABLES - DEV ICE Final Result [address] Department of Laboratories [place], [place] [id number] * Surgical pathology (10/05/2022 12:00 AM ROUTE SPECIALIST) Tissue (Gastric/Stomach biopsy) 10/05/2022 2:27 PM ROUTE SPECIALIST Tissue (Colon, Biopsy) 10/05/2022 2:35 PM ROUTE SPECIALIST Narrative PATHOLOGY [facility] - 10/09/2022 9:00 AM ROUTE SPECIALIST [facility] Department of Pathology [address] [place] [address] ?? Note to Patients: ??This report may [...] : ??1950 (Age: 71) Gender: ??M Address: ??[address] [place] [address] [facility] #: [id number] Service: Gastro Location: Patient Type: [facility] OUTPATIENT ? Taken: 10/05/2022 Received: 10/08/2022 Accessioned: [...] B1. ??Jar 0. ?? dxbmhb/10/08/2022 12:21 KIRSTIE Admason us Italia Rosenthal MD LAB PATHOLOGY ORDERABLES Final Result PATHOLOGY [facility] documented in this encounter Visit Diagnoses [...] hageal reflux disease Given 10/05/2022 12:43 PM ROUTE SPECIALIST 20 mg Lactated Ringer's (LR) infusion 30 mL/hr, intravenous, Continuous, Starting on Sat10/05/22 at 1315, Pre-Op, Rate/Dose Verify 10/05/2022 2:19 PM ROUTE SPECIALIST 30 mL/hr New Bag 10/05/2022 1:08 PM ROUTE SPECIALIST 30 mL/hr 30 mL/hr documented in this [...] Recently Administered Medications Times are shown in ROUTE SPECIALIST. Scheduled Medication Order 10/03/2022 10/04/2022 10/05/2022 acetaminophen [...] 10/05/2022 documented in this encounter Care Teams Sugarcane Planter Relationship Specialty Start Date End Date Nickie Negron MD [address] [facility] [address] [place] [address] PCP - General 01/13/19 documented as of this encounter
--- OUTSIDE RECORDS SUMMARY | 2024-10-27 10:54 | XMS_ITS | Encounter Summary ---
Author Organization [facility] Address [address] [place] [address] Care Team Providers Care Apprentice Embalmer Name Role Phone Nickie Negron MD Primary Care Provider [phone]- [phone] Reason for Visit * Reason Comments Chronic Kidney Disease Encounter Details Date Type Department Care Team (Late st Contact Info) Description 02/22/2023 9:30 AM CDT Office Visit [facility] Nephrology at [address] [place] [id number] Shree Gutiérrez MD [address] [place] [id number] Stage 3b chronic kidney disease (HCC) [...] on file 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 Gender Identity Not on file Sexual Orientation Not on file documented as of this encounter Last Filed Vital Signs Vital Sign Reading Time Taken Comments Blood Pressure 130/86 02/22/2023 9:07 AM CDT Pulse 81 02/22/2023 9:07 AM CDT Temperature 37.6 ??C (99.6 ??F) 02/22/2023 9:07 AM CD T Respiratory Rate - - Oxygen Saturation - - Inhaled Oxygen Concentration - - Weight 69.4 kg (153 lb) 02/22/2023 9:07 AM CDT Height 160 cm (5' 3 ) 02/22/2023 9:07 AM CDT Body Mass Index 27.1 02/22/2023 9:07 AM CDT documented in this encounter Ordered Prescriptions Prescription Sig Dispense Quantity Refills Last Filled Start Date End Date sodium bicarbonate 650 mg tablet Take 1 tablet (650 mg total) by mouth 3 (three) times a day 1000 tablet 3 02/22/2023 documented in this encounter Progress Notes * Shree Gutiérrez MD - 02/22/2023 9:30 AM CDT Images from the original note were not included. Subjective/Objective Patient ID: Julius Andrade is a 72 y.o. male. Chief Complaint Chronic Kidney Disease HPI This is a patient with a [...] been approximately 1.5 mg/dL. He presented again inJune 2015 with a similar issue and a creatinine of 8. He responded again to IV fluid resuscitation. Last known serum creatinine of 1.7 with a potassium of 3.5 and hemoglobin of 9.5. He is not sure when he had his last labs done. Reports GI symptoms and appetite have been stable Review of Systems Constitutional: Negative for appetite change and fatigue. HENT: Negative. Eyes: Negative. Respiratory: Negative [...] tablet (150 mg total) by mouth daily cephalexin (KEFLEX) 500 mg capsule Take 1 capsule (500 mg total) by mouth every 6 (six) hours cholecalciferol (VITAMIN D-3) 5,000 unit tablet [...] 1 tablet (125 mcg total) by mouth promotion specialist before breakfast polysaccharide iron complex (NU-IRON) 150 mg iron capsule Take 1 capsule (150 mg total) by mouth every other day pravastatin (PRAVACHOL) 10 mg tablet Take 1 tablet (10 mg total) by mouth nightly triamcinolone (KENALOG) 0.1 % cream Apply topically 2 (two) times a day Feet and legs VIAGRA 50 mg tablet Take 1 tablet (50 mg total) by mouth as needed vit C,D-Mj-dydjr-lutein-zeaxan (PreserVision AREDS-2) 250-90-40-1 mg capsule Take 1 [...] taking: Reported on 09/26/2022) 60 tablet 0 sodium bicarbonate 650 mg tablet Take 1 tablet (650 mg total) by mouth 3 (three) times a day 1000 tablet 3 tiZANidine (ZANAFLEX) 4 mg tablet daily (Patient not taking: Reported on 09/26/2022) No current facility-administered medications for this visit. Allergies Allergen Reactions Gluten Lactose Stomach upset Vitals BP 130/86 (BP Location: Left arm, Patient Position: Sitting) Pulse 81 Temp 37.6 ??C (99.6 ??F) (Skin) Ht 160 cm (5' 3 ) Wt 69.4 kg (153 lb) BMI 27.10 kg/m?? Physical Exam Constitutional: Thin but in no acute distress. Head: Normocephalic and atraumatic. Eyes: EOM are normal. Neck: Normal range of motion. Cardiovascular: Normal rate and regular rhythm. Pulmonary/Chest: Effort normal and breath sounds normal. Abdominal: Soft. Bowel sounds are normal. Musculoskeletal: limited range of motion. No edema. Neurological: Alert and oriented to person, place, and time. Skin: Skin is warm and dry. Psychiatric: Normal mood and affect. Assessment/Plan Diagnoses and all orders for this visit: Stage 3b chronic kidney disease (HCC) (N18.32) (Primary) - Comprehensive metabolic panel; Future - Phosphorus; Future - Magnesium; Future - PTH; Future Metabolic acidosis (E87.20) Crohn's disease of small intestine with other complication (HCC) (K50.018) ASVD (arteriosclerotic vascular disease) (I70.90) Anemia in stage 3b chronic kidney disease (HCC) (N18.32, D63.1) - Vitamin B12 and Folate; Future - Iron profile w/ IBC; Future - CBC with auto differential; Standing Other orders - sodium bicarbonate 650 mg tablet; Take 1 tablet (650 mg total) by mouth 3 (three) times a day CKD following episodes of acute kidney failure. Serum creatinine had been remaining stable. Unclearwhen he last had labs obtained and he is unsure as well. I will reorder. He believes he is only taking sodium bicarbonate once a day and cm prescription for t.i.d. dosing given his history of metabolic acidosis. Anemic on last known labs and will check iron studies/etcetera with those as well and await results documented in this encounter Plan of Treatment Scheduled Orders Name Type Priority Associated Diagnoses Orde r Schedule Vitamin B12 and Folate Lab Routine Anemia in stage 3b chronic kidney disease (HCC) Expected: 03/22/2023, Expires: 02/23/2024 Iron profile w/ IBC Lab Routine Anemia in stage 3b chronic kidney disease (HCC) Expected: 02/22/2023, Expires: 02/23/2024 Comprehensive metabolic panel Lab Routine Stage 3b chronic kidney disease (HCC) Expected: 02/22/2023, Expires: 02/23/2024 CBC with auto differential Lab Routine Anemia in stage 3b chronic kidney disease (HCC) 2 Occurrences starting 02/22/2023 until 02/23/2024 Phosphorus Lab Routine Stage 3b chronic kidney disease (HCC) Expected: 02/22/2023, Expires: 02/23/2024 Magnesium Lab Routine Stage 3b chronic kidney disease (HCC) Expected: 02/22/2023, Expires: 02/23/2024 PTH Lab Routine Stage 3b chronic kidney disease (HCC) Expected: 02/22/2023, Expires: 02/23/2024 documented as of this encounter Visit Diagnoses Diagnosis Stage 3b chronic kidney disease (HCC)- Primary Metabolic acidosis Acidosis Crohn's disease of small intestine with other complication (HCC) ASVD (arteriosclerotic vascular disease) Anemia in stage 3b chronic kidney disease (HCC) documented in this encounter Discontinued Medications Medication Sig Discontinue Reason Start Date End Da te sodium bicarbonate 650 mg tablet Take 2 tablets (1,300 mg total) by mouth 3 (three) times a day 02/09/2022 02/22/2023 documented as of this encounter Historical Medications * This list may reflect changes made after this encounter. cephalexin (KEFLEX) 500 mg capsule Take 1 capsule (500 mg total) by mouth every 6 (six) hours 02/04/2023 08/23/2023 added in this encounter Care Teams Apprentice Embalmer Relationship Specialty Start Date End Date Nickie Negron MD [address] [facility] [address] [place] [address] PCP - General 01/13/19 documented as of this encounter
--- OUTSIDE RECORDS SUMMARY | 2024-10-27 10:54 | XMS_ITS | Encounter Summary ---
Author Organization [facility] Healthcare Address [address] [place] [address] Care Team Providers Care Field Ironworker Name Role Phone Nickie Negron MD Primary Care Provider [phone]- [phone] Reason for Visit * Auth/Cert Specialty Diagnoses / Procedures Referred By Roula t Referred To Contact Diagnoses History of Crohn's disease Ulcer of esophagus without bleeding History of Crohn's disease [Z87.19] Ulcer of esophagus without bleeding [K22.10] Procedures ESOPHAGOGASTRODUODENOSCOPY COLONOSCOPY Referral ID Status Reason Start Date Expiration Date Visits Re quested Visits Authorized [id number] 1 1 Encounter Details Date Type Department Care Team (Late st Contact Info) Description 10/05/2022 2:19 PM NET DEVELOPER CONTRACT Anesthesia Event [facility] [address] [place] [address] Carlos A Lee DO [facility] [place] [address] MD [facility] [place] [address] Anesthesia Record Procedure Summary Procedure Name Responsible Anesthesiologist Anesthesia Start Time Anesthesia Stop Time ESOPHAGOGASTRODUODENOSCOPY BIOPSY Carlos A Lee DO 10/05/22 1419 10/05/22 1444 Events Date Time Event Comment 10/05/2022 1417 In Room 1419 An Start 1419 An Start Data 1422 Patient Positioned Laterally 1424 Bite Block Placed 1425 An Induction The patient was reevaluated immediately before moderate or deep sedation use and before anesthesia induction. 1425 Proc Start 1425 Anesthesia Ready 1438 Proc Fin 1439 an stop data 1442 Out of Room 1443 Handoff to RN I completed my handoff to the receiving nurse during which we: 1. Patient identified 2. Responsible provider identified 3. Pertinent medical history reviewed 4. Procedure type and surgical course discussed 5. Intraoperative anesthetic management and any significant issues discussed 6. Expectations and concerns for postop period discussed 7. Questions solicited from receiving nurse 8. Patient disposition at the time of handoff: PACU 1444 An Stop Meds Name Total fentaNYL 50 mcg/mL PF 100 mcg propofol 60 mg propofol 76.2 mg Lactated Ringer's (LR) infusion 400 mL * Agents Name O2% N2O O2 N2O Air * Blood No blood administrations on file. 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 ENDOSCOPY ROOM 05 / [facility] ENDOSCOPY Anesthesia Start: 1419 Anesthesia Stop: 1444 Procedures: ESOPHAGOGASTRODUODENOSCOPY BIOPSY COLON BIOPSY (Colon) Diagnosis: History of Crohn's disease Ulcer of esophagus without bleeding (History of Crohn's disease [Z87.19]) (Ulcer of esophagus without bleeding [K22.10]) Providers: Italia Rosenthal MD Responsible Provider: Carlos A Lee DO Anesthesia Type: MAC ASA Status: 4 Anesthesia Type: MAC Last vitals BP 140/89 Pulse 74 Temp 36.7 ??C (98.1 ??F) (Tympanic) Resp 21 SpO2 100% Anesthesia Post Evaluation Patient location: GI. Patient participation: complete - patient participated Level of consciousness: fully awake Pain management: adequate Airway patency: adequate Cardiovascular status: acceptable Respiratory status: acceptable Hydration status: acceptable Pt is: normothermic Nausea/Vomiting status: none No notable events documented. DEVELOPER CONTRACT * Anesthesia Preprocedure Evaluation - Carlos A Lee DO - 10/05/2022 12:53 PM CST Images from the original note were not included. Anesthesia Evaluation Julius Andrade is a 71 y.o. male Procedure(s): ESOPHAGOGASTRODUODENOSCOPY COLONOSCOPY Pre-Op Diagnosis Codes: * Melena [K92.1] Seen by friction welding machine operator 08/09/22. No major changes to medical regimen or further interventions recommended at that time. ISTAT reviewed. ECG 06/12/22 Sinus tachycardia with Premature supraventricular complexes Nonspecific ST abnormality Abnormal ECG When compared with ECG of 21-NOV-2020 12:02, Premature supraventricular complexes are now Present ST now depressed in Inferior leads 01/2016 TTE WNL Carotid Duplex 02/21/22 OVERALL IMPRESSION 1. Stenosis 16% to 49% right internal carotid artery. 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 2. Antegrade flow noted bilateral vertebral arteries. Plan: Continue risk factor modifications. Patient to follow-up in 1 year for re- evaluation with carotid duplex. HISTORY Past Medical History Information obtained from: patient and chart. Neurological + ICA stenosis (See above) Cardiovascular + Hypertension + CAD + PAD/Aorta disease - Comments: CAD S/p atherectomy, PCI/stent in 2016 PVD S/p balloon angioplasty in the past No current symptoms Respiratory + COPD Rescue inhaler use: 2 days/week or less. + Asthma Rescue inhaler use: 2 days/week or less. Renal / + Renal disease Musculoskeletal/Pain + Osteoarthritis Endocrine / Other + Thyroid disease - hypothyroidism + Rheumatological disease - Crohn's disease. Functional Capacity Functional capacity: 4-6 METs Review of Systems Pertinent negatives: SOB; chest pain; heartburn and nausea Patient Active Problem List Diagnosis ??? Mass of nose ??? Acute dehydration ??? Acute kidney injury (CMS/HCC) (HCC) ??? Age-related macular degeneration ??? Asthma ??? Body mass index (BMI) 19.9 or less, adult ??? Body mass index (BMI) of 20 to 24 ??? Chronic obstructive pulmonary disease with bronchospasm (CMS/HCC) (HCC) ??? Acute renal failure superimposed on chronic kidney disease (CMS/HCC) (HCC) ??? Claudication of left lower extremity (CMS/HCC) (HCC) ??? Coffee ground emesis ??? Coronary artery disease ??? Crohn's disease without complication (CMS/HCC) (HCC) ??? 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 Ex-smoker ??? Fall involving ice skates ??? Family history of stroke ??? Gastroenteritis ??? Gastroesophageal reflux disease with esophagitis ??? Gastrointestinal hemorrhage ??? History of acute renal failure ??? History of colonic polyps ??? History of Crohn's disease ??? Leukocytosis ??? Hyperlipidemia ??? Hyperuricemia ??? Hypokalemia due to loss of potassium ??? Hypomagnesemia ??? Hypophosphatemia ??? Hypotension due to blood loss ??? Kidney stone ??? Macrocytosis ??? Mixed anxiety and depressive disorder ??? Moderate essential hypertension ??? Mucoid diarrhea ??? Osteoarthritis ??? Osteoporosis ??? Peripheral vascular disease (CMS/HCC) (HCC) ??? Primary hypothyroidism ??? Repeated falls ??? Systemic inflammatory response syndrome (SIRS) (CMS/HCC) (HCC) ??? Traumatic hematoma of hand ??? Inflammation of colonic mucosa ??? Vitamin B12 deficiency (non anemic) ??? Vitamin D deficiency ??? Carotid artery stenosis, unilateral ??? Benign prostatic hyperplasia with urinary obstruction ??? Occlusion of left carotid artery ??? Encounter for long-term (current) use of insulin (CMS/HCC) (HCC) ??? Bilateral carotid artery stenosis ??? Melena ??? Chronic kidney disease, stage III (moderate) (HCC) ??? Abdominal pain Past Medical History: Diagnosis Date ??? Asthma ??? Celiac sprue ??? Chronic kidney disease, stage III (moderate) (HCC) ??? Coronary artery disease ??? Crohn's colitis (CMS/HCC) (HCC) ??? DJD (degenerative joint disease) ??? GERD (gastroesophageal reflux disease) ??? Hyperlipidemia ??? Hypertension ??? Hypokalemia ??? Hypomagnesemia ??? Hypophosphatemia ??? Hypothyroidism Past Surgical History: Procedure Laterality Date ??? ATHERECTOMY Left 05/04/2015 popliteal ??? CARDIAC CATHETERIZATION stent ??? COLONOSCOPY W/ BIOPSIES 04/13/2016 ??? NECK SURGERY 10/22/2011 Neck fracture Allergies Allergen Reactions ??? Gluten ??? Lactose Stomach upset Taking? Last Dose Start Date End Date Provider acetaminophen (TYLENOL) 500 mg tablet -- -- -- Js Cantu MD albuterol HFA (PROVENTIL HFA,VENTOLIN HFA,PROAIR HFA) 90 mcg/actuation inhaler -- -- -- Js Cantu MD Asacol HD 800 mg EC tablet -- 05/11/21 -- Js Cantu MD aspirin 81 mg enteric coated tablet -- -- -- Js Cantu MD buPROPion XL (WELLBUTRIN XL) 150 mg 24 hr tablet -- -- -- Js Cantu MD carvediloL (COREG) 3.125 mg tablet -- 06/19/21 -- Js Cantu MD cholecalciferol (VITAMIN D-3) 5,000 unit tablet -- -- -- Js Cantu MD cholestyramine (QUESTRAN) 4 gram powder -- -- -- Js Cantu MD cilostazol (PLETAL) 50 mg tablet -- -- -- Js Cantu MD clopidogreL (PLAVIX) 75 mg tablet -- -- -- Js Canut MD cyanocobalamin, vitamin B-12, 5,000 mcg tablet, sublingual -- -- -- Js Cantu MD fluticasone propionate (FLONASE) 50 mcg/actuation nasal spray -- -- -- Js Cantu MD folic acid (FOLVITE) 1 mg tablet -- 01/27/20 -- Js Cantu MD levothyroxine (SYNTHROID) 125 mcg tablet -- -- -- Js Cantu MD pantoprazole DR (PROTONIX) 40 mg EC tablet () -- 06/18/22 07/18/22 Ramon Rosenthal MD Take 1 tablet (40 mg total) by mouth 2 (two) times a day before breakfast and dinner Patient not taking: Reported on 09/26/2022 polysaccharide iron complex (NU-IRON) 150 mg iron capsule -- -- -- Js Cantu MD pravastatin (PRAVACHOL) 10 mg tablet -- 05/19/19 -- Js Cantu MD sodium bicarbonate 650 mg tablet -- 02/09/22 -- Shree Gutiérrez MD Take 2 tablets (1,300 mg total) by mouth 3 (three) times a day Patient taking differently: Take 650 mg by mouth daily tiZANidine (ZANAFLEX) 4 mg tablet -- -- -- Js Cantu MD triamcinolone (KENALOG) 0.1 % cream -- -- -- Js Cantu MD VIAGRA 50 mg tablet -- 07/13/19 -- Js Cantu MD vit C,X-Ka-dwtff-lutein-zeaxan (PreserVision AREDS-2) 250-90-40-1 mg capsule -- -- -- Js Cantu MD No current facility-administered medications for this visit. No current outpatient medications on file. Facility-Administered Medications Ordered in Other Visits: ??? acetaminophen (TYLENOL) tablet 975 mg, 975 mg, oral, Once ??? Lactated Ringer's (LR) infusion, 30 mL/hr, intravenous, Continuous ??? lidocaine (XYLOCAINE) 10 mg/mL (1 %) injection 2-10 mg, 0.2-1 mL, other, Once PRN Social History Tobacco Use Smoking Status Former ??? Packs/day: 1.00 ??? Types: Cigarettes ??? Quit date: 2011 ??? Years since quittin.9 Smokeless Tobacco Never Alcohol Use: Not At Risk ??? Frequency of Alcohol Consumption: Never ??? Average Number of Drinks: Patient does not drink ??? Frequency of Binge Drinking: Never Substance and Sexual Activity Drug Use Not Currently Family History Problem Relation Age of Onset ??? Cerebral aneurysm Father Family history of cerebral aneurysm - (Added by TW Conv) ??? Hypertension Other There were no vitals filed for this visit. PT: No results found for requested labs within last 720 hours. INR: No results found for requested labs within last 720 hours. APTT: No results found for requested labs within last 720 hours. Hgb A1C: No results found for requested labs within last 720 hours. CBC RBC: No results found for requested labs within last 720 hours. RDW: No results found for requested labs within last 720 hours. MCHC: No results found for requested labs within last 720 hours. MCH: No results found for requested labs within last 720 hours. MCV: No results found for requested labs within last 720 hours. Hct: No results found for requested labs within last 720 hours. Hgb: No results found for requested labs within last 720 hours. WBC: No results found for requested labs within last 720 hours. MPV: No results found for requested labs within last 720 hours. Platelets: No results found for requested labs within last 720 hours. RDW CV: No results found for requested labs within last 720 hours. RDW Sd: No results found for requested labs within last 720 hours. BMP Glucose: No results found for requested labs within last 720 hours. Calcium: No results found for requested labs within last 720 hours. Sodium: No results found for requested labs within last 720 hours. Potassium: No results found for requested labs within last 720 hours. CO2: No results found for requested labs within last 720 hours. Chloride: No results found for requested labs within last 720 hours. BUN: No results found for requested labs within last 720 hours. Creatinine: No results found for requested labs within last 720 hours. DOS Physical Exam Medical history, medications, and allergies reviewed. Attestation: With today's edits, I endorse the findings of the anesthesia pre-evaluation assessment dated: 10/05/2022. Airway Exam: Mallampati: I Cervical ROM: FROM TM distance: normal Cardiovascular Exam: Rate: regular Rhythm: regular Pulmonary Exam: LCTA, bilat EENT Exam: trachea midline Dental Exam: Edentulous Current state: Patient's current state is cooperative. Anesthesia Plan ASA 4 My patient is approved for the Anesthesia Controlled Medication protocol when under care of a GEODETIC SURVEYOR Planned anesthesia: MAC Comments: Discussed possible GETA Induction: Induction: intravenous. Informed Consent: Discussed plan with GEODETIC SURVEYOR. Anesthesia plan and risks discussed with patient. Consent and Attending signature: I and/or my designee have discussed the anesthesia plan, benefits, possible alternatives, parental presence at time of induction (if indicated), and clinically relevant risks that may include dental injury, unintentional awareness, and/or other complications. The patient and/or parent/legal guardian understand, and agree to proceed. All questions answered. DEVELOPER CONTRACT documented in this encounter Plan of Treatment Not on file documented as of this encounter Visit Diagnoses Not on filedocumented in this encounter Administered Medications Inactive Administered Medications - up to 3 most recent administrations Medication Order MAR Action Action Date Dose Rate Site fentaNYL (SUBLIMAZE) preservative free injection intravenous, As needed, Starting on Sat10/05/22 at 1422, Anesthesia Intra-op Given 10/05/2022 2:22 PM NET DEVELOPER CONTRACT 100 mcg Lactated Ringer's (LR) infusion 30 mL/hr, intravenous, Continuous, Starting on Sat10/05/22 at 1315, Pre-Op, Rate/Dose Verify 10/05/2022 2:19 PM NET DEVELOPER CONTRACT 30 mL/hr New Bag 10/05/2022 1:08 PM NET DEVELOPER CONTRACT 30 mL/hr 30 mL/hr propofoL (DIPRIVAN) 10 mg/mL IV intravenous, As needed, Starting on Sat10/05/22 at 1425, Anesthesia Intra-op Given 10/05/2022 2:25 PM NET DEVELOPER CONTRACT 60 mg propofoL (DIPRIVAN) 10 mg/mL IV intravenous, Continuous PRN, Starting on Sat10/05/22 at 1425, Anesthesia Intra-op Rate/Dose Change 10/05/2022 2:35 PM NET DEVELOPER CONTRACT 50 mcg/kg/min 19.05 mL/hr Rate/Dose Change 10/05/2022 2:33 PM NET DEVELOPER CONTRACT 75 mcg/kg/min 28.5 75 mL/hr New Bag 10/05/2022 2:25 PM NET DEVELOPER CONTRACT 125 mcg/kg/min 47.625 mL /hr documented in this encounter Care Teams Field Ironworker Relationship Specialty Start Date End Date Nickie Negron MD [address] [facility] [address] [place] [address] PCP - General 01/13/19 documented as of this encounter
--- OUTSIDE RECORDS SUMMARY | 2024-10-27 10:55 | XMS_ITS | Encounter Summary ---
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 (HCC) Procedures US Arterial Doppler Lower Extremity Bilateral Zac Parada NP [address] [facility] [facility] [address] [place] [address] [facility] [place] [place] [address] Phone: tel: fax: [facility] [address] [place] [phone] Referral ID Status Reason Start Date Expiration Date Visits Re quested Visits Authorized [id number] Closed 08/17/2021 09/16/2022 1 1 Reason for Visit * Diagnostic Imaging (Routine) - Closed Specialty Diagnoses / Procedures Referred By Contgemini mcmillan Referred To Contact Diagnoses Atherosclerosis of lower [place] artery of both lower extremities with intermittent claudication (HCC) Procedures US Arterial Doppler Lower Extremity Bilateral Zac Parada NP [address] [facility] [address] [place] [address] [facility] [place] [place] [address] Phone: tel: fax: [facility] [address] [place] [phone] Referral ID Status Reason Start Date Expiration Date Visits Re quested Visits Authorized [id number] Closed 08/17/2021 09/16/2022 1 1 Encounter Details Date Type Department Care Team (Latest Contact Info) Description 02/21/2022 9:02 AM CDT - 02/21/2022 11:59 PM CDT Hospital Encounter [facility] [address] [address] Atherosclerosis of lower [place] artery of both lower extremities with intermittent claudication (CMS/HCC) (HCC) Discharge Disposition: Discharge to home or self care Social History Tobacco Use Types Packs/Day Years Used Date Smoking Tobacco: Former Smokeless Tobacco: Never Alcohol Use Standard Drinks/Week Comments Not Currently 0 (1 standard drink = 0.6 oz pur e alcohol) AUDIT-C Answer Date Recorded Q1: How often do you have a drink containing alc ohol? Never 02/09/2022 Average Number of Drinks Not on file 022 Frequency of Binge Drinking Not on file 01/26 Sex and Gender Information Value Date Recorded Sex Assigned at Not on file Legal Sex Male 5:49 AM [employer]IN[employer] Gender Identity Not on file Sexual Orientation [...] mg total) by mouth nightly 05/19/2019 vit C,E-Qy-cjphg-lut ein-zeaxan (PreserVision AREDS-2) 250-90-40-1 mg capsule Take 1 capsule by mouth every 12 hours albuterol HFA (PROVENTIL HFA,VENTOLIN HFA,PROAIR HFA) 90 mcg/actuation inhaler Inhale 2 puffs every 8 (eight) hours as needed fluticasone propionate (FLONASE) 50 mcg/actuation nasal spray Administer 1 spray into each nostril daily as needed aspirin 81 mg enteric coated tablet Take 81 mg by mouth daily 04/18/2020 2 cholecalciferol (VITAMIN D-3) 25 mcg (1,000 unit) tablet Take 1 tablet (1,000 Units total) by mouth daily 4 clopidogrel (PLAVIX) 75 mg tablet Take 75 mg by mouth daily 2 denosumab (Prolia) 60 mg/mL syringe Inject 1 mL by subcutaneous route as directed for 180 days. 11/20/2016 2 diclofenac sodium (VOLTAREN) 1 % gel Apply 4 g topically 4 (four) times a day as needed 2 influenza trivalent [id number] (Fluad , 65 yr up,,PF,) 45 mcg (15 mcg x 3)/0.5 mL syringe Fluad 65yr up(PF)45 mcg(15 mcgx3)/0.5 mL intramuscular syringe ADM 0.5ML IM UTD 2 levothyroxine (SYNTHROID) 125 mcg tablet Take 1 tablet (125 mcg total) by mouth sweatband separator before breakfast 4 sodium bicarbonate 650 mg tablet Take 2 tablets (1,300 mg total) by mouth 3 (three) times a day 540 tablet 3 02/09/2022 3 triamcinolone (KENALOG) 0.1 % cream 1 application as needed 04/27/2020 2 VIAGRA 50 mg tablet Take 1 tablet [...] BILATERAL Schedule Routine, Read Routine (OP Routine) 02/21/2022 10:32 AM CDT Atherosclerosis of [place] artery of both lower extremities with intermittent claudication (CMS/HCC) (HCC) documented in this encounter Results * US Arterial Doppler Lower Extremity Bilateral (02/21/2022 10:32 AM CDT) Anatomical Region Laterality Modality Vascular Bilateral Ultrasound 02/21/2022 Narrative 02/24/2022 8:57 AM CDT [employer] Job ID: [id number] [employer] Document ID: [id number] Dictated date/time: [id number] LOWER EXTREMITY ARTERIAL DOPPLER REASON FOR EXAMINATION Atherosclerosis, claudication. COMMENTS ON RIGHT Brachial pressure of 154. ??PT/DP noncompressible. ??Digital pressure 110. ?? Waveforms triphasic. COMMENTS ON LEFT PT/DP pressure noncompressible. ??Digital pressure 60. ??Waveforms triphasic. OVERALL IMPRESSION Ankle-brachial indices unreliable secondary to vessel non-compressibility, although waveforms are normal bilateral lower extremities. ??Wound healing potential good. 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
--- OUTSIDE RECORDS SUMMARY | 2024-10-27 10:55 | XMS_ITS | Encounter Summary ---
Author Organization [facility] Healthcare Address [address] [place] [address] Care Team Providers Care Core Sticker Name Role Phone Nickie Negron MD Primary Care Provider [phone] Reason for Visit * Reason Comments Abdominal Pain Black or Bloody Stool * Auth/Cert Specialty Diagnoses / Procedures Referred By Roula mcmillan Referred To Contact Diagnoses Abdominal pain Black stools Procedures ADM Referral ID Status Reason Start Date Expiration Date Visits Re quested Visits Authorized [id number] 1 1 Encounter Details Date Type Department Care Team (Latest Contact Info) Description 06/12/2022 2:00 PM CDT - 06/12/2022 2:45 PM CDT Surgery [facility] Lab [address] [place] [address] Alvin Alicia MD [address] [place] [id number] ESOPHAGOGASTRODUODENOSCOPY CONTROL BLEED Surgery Details Date/Time Status Location OR Service Patient Class Case Class Case Type Trauma Case? 06/12/2022 2:00 PM Posted [facility] ENDOSCOPY GI 09 ERCP Gastroenterology Inpatient Urgent - 6 hours Panel 1 Procedure LRB Anes Op Region Wound Class Comments ESOPHAGOGASTRODUODENOSCOPY CONTROL BLEED N/A Monitor Anesthesia Care Class II - Clean Contaminated Surgeon Surgeon Role Service Panel Alvin Alicia MD Primary Gastroenterology 1 documented in this [...] on file Legal Sex Male 5:49 AM [employer] Gender Identity Not on file Sexual Orientation Not on file documented as of this encounter Last Filed Vital Signs Vital Sign Reading Time Taken Comments Blood Pressure 155/80 06/12/2022 2:31 PM CDT Pulse 100 06/12/2022 2:31 PM CDT Temperature 36.4 ??C (97.5 ??F) 06/12/2022 2:31 PM CD T Respiratory Rate 18 06/12/2022 2:31 PM CDT Oxygen Saturation 100% 06/12/2022 2:31 PM CDT Inhaled Oxygen Concentration - - Weight 69.9 kg (154 lb) 06/12/2022 12:50 PM CDT Height 162.6 cm (5' 4.02 ) 06/12/2022 12:50 PM C DT Body Mass Index 26.42 06/12/2022 12:50 PM CDT documented in this encounter Discharge Summaries * Ramon Rosenthal MD - 06/18/2022 11:06 AM CDT Inpatient Discharge Summary Patient Name - Julius Rosado Patient Age - 71 yrs Patient - [id number] [facility] - [id number] Document Creation Date: 06/18/2022 Admitting Provider, : Ramon Borjas MD Discharge Provider, MD: Ramon Rosenthal MD Primary Care Physician at Discharge: Nickie Negron MD [phone] Admission Date: 06/12/2022 Discharge Date/time: 06/18/2022 Admission Location: [facility] LOS - LOS: 6 days DETAILS OF HOSPITAL STAY Hospital Problems/Diagnoses Principal Problem: Melena Active Problems: Coronary artery disease History of Crohn's disease Leukocytosis Peripheral vascular disease (CMS/HCC) (HCC) Chronic kidney disease, stage III (moderate) (HCC) Reason for Hospitalization: GI bleed Hospital Course: Patient is a 71-year-old male with past medical history of celiac disease, CKD stage 3, Crohn's disease, CAD, peripheral vascular disease was admitted in hospital secondary to GI bleed. Patient was presented with melena , GI was consulted they took the patient for upper endoscopy, it reported esophageal ulcer with visible vessel that was treated with epinephrine and hemoclip. As per recommendation from GI patient has remained NPO until SaturdayJune 16 after that continue 10 days of treatment with full liquid diet and upper endoscopy has to be repeated. In the case of a rebleed patient will require to be transferred to a tertiary center for possible angiogram with embolization. Patient has been tolerating diet. Patient hemoglobin 06/13 showed a dropped from 9.8-7 unsure if this bleeding was secondary to repeatthe versus prior bleeding and start doing hemoglobin q12, transfuse 1 unit of PRBCs. Hemoglobin went to 7.7 posttransfusion showed hemoglobin went to 9.1 since them H&H remained stable 9.4>9.3>9.5. We put on hold due antiplatelet therapy due to high risk of bleeding please GI and PCP restart accordingly in the outpatient setting Patient tolerated diet well, he is medically cleared to be discharged with outpatient follow-up with primary care doctor and GI. Discharge Details Physical Exam at Discharge: Discharge Condition: stable Pulse: 59 Resp: 18 BP: 110/71 Temp: 36.5 ??C (97.7 ??F) Weight: 69.9 kg (154 lb) Pertinent Exam Findings at Discharge: Hemodynamically stable no signs of actively Discharge Disposition: home Code Status at Discharge: Full Code Active Issues & Recommended Plan for Follow-up: Patient tolerated diet well, he is medically cleared to be discharged with outpatient follow-up with primary care doctor and GI. Continue liquid diet for 2 weeks Allergies: Gluten and Lactose Discharge Medications: Your medication list ASK your doctor about these medications Instructions Last Dose Given Next Dose Due acetaminophen 500 mg tablet Commonly known as: TYLENOL albuterol HFA 90 mcg/actuation inhaler Commonly known as: PROVENTIL HFA,VENTOLIN HFA,PROAIR HFA Asacol HD 800 mg EC tablet Generic drug: mesalamine aspirin 81 mg enteric coated tablet buPROPion XL 150 mg 24 hr tablet Commonly known as: WELLBUTRIN XL carvediloL 3.125 mg tablet Commonly known as: COREG cholecalciferol 5,000 unit tablet Commonly known as: VITAMIN D-3 cholestyramine 4 gram powder Commonly known as: QUESTRAN cilostazoL 50 mg tablet Commonly known as: PLETAL clopidogreL 75 mg tablet Commonly known as: PLAVIX cyanocobalamin (vitamin B-12) 5,000 mcg tablet, sublingual diclofenac sodium 1 % gel Commonly known as: VOLTAREN fluticasone propionate 50 mcg/actuation nasal spray Commonly known as: FLONASE folic acid 1 mg tablet Commonly known as: FOLVITE levothyroxine 125 mcg tablet Commonly known as: SYNTHROID pravastatin 10 mg tablet Commonly known as: PRAVACHOL PreserVision AREDS-2 250-90-40-1 mg capsule Generic drug: vit C,Y-Dw-tyzak-lutein-zeaxan sodium bicarbonate 650 mg tablet Take 2 tablets (1,300 mg total) by mouth 3 (three) times a day Viagra 50 mg tablet Generic drug: sildenafiL Time Spent in Discharge Process: I have spent 34 minutes on discharge planning activities. Time spent was on Counselling with patient/family Test Results Pending at Discharge (If Blank, None Found): Pending Labs Order Current Status Crossmatch In process Operative Procedures Performed (If Blank, None Found): Procedure(s): ESOPHAGOGASTRODUODENOSCOPY CONTROL BLEED Outpatient Follow-Up: Future Appointments Date Time Provider Department Center 06/20/2022 9:30 AM [facility] 1 DEXA RM [facility] E M[facility] 1 02/22/2023 9:30 AM Shree Gutiérrez MD [facility] 330 Specialty 02/28/2023 8:00 AM [facility] 02/28/2023 8:30 AM [facility] RM 1 [facility]2 [facility] MOB 2 02/28/2023 9:00 AM [facility] Contact Information for Follow-ups Nickie Negron MD Specialty: Internal Medicine, Family Medicine Relationship: PCP - General [facility] [address] [facility] [address] [facility] [place] [address] Next Steps: Follow up Please schedule an appointment with the following provider(s): Nickie Negron MD [address] [facility] [address] [place] [address] Follow up ANCILLARY INFORMATION Other Procedures & Diagnostic Tests: XR Chest 1 Vw Portable Result Date: 06/12/2022 EXAM DESCRIPTION: XR CHEST 1 VIEW REASON FOR STUDY: c/o of melena, r/o free air or cardiopulmonary processes Onset weakness this morning, bloody bowel movements TECHNIQUE: One radiographic view of the chest acquired. COMPARISON: Chest radiograph November 03, 2019 FINDINGS: LUNGS/PLEURA: No pleural effusion, airspace consolidation, or pneumothorax. HEART/MEDIASTINUM: Cardiomediastinal silhouette is unremarkable. HARDWARE/LINES/TUBES: None. BONES: No acute findings. OTHER: No free intraperitoneal air on this semi upright portable radiograph. IMPRESSION: No acute abnormality. THIS IS AN ELECTRONICALLY VERIFIED FINAL REPORT 06/12/2022 11:22 AM - Electronically signed by Cee Almonte D.O. AC T: Report ID: [id number] Reading Location: [id number] Recent Labs: Recent Labs Lab Units 06/18/22 04206/17/2244106/16/22 0428 WBC K/cumm 6.5 7.3 9.0 HEMOGLOBIN g/dL 9.5* 9.5* 9.3* HEMATOCRIT % 28.2* 29.0* 28.8* PLATELETS K/cumm 157 144* 140* Recent Labs Lab Units 06/18/22 0426 06/17/222 06/16/22 0428 WBC K/cumm 6.5 7.3 9.0 HEMOGLOBIN g/dL 9.5* 9.5* 9.3* HEMATOCRIT % 28.2* 29.0* 28.8* PLATELETS K/cumm 157 144* 140* NEUTROS PCT % 59.9 61.8 73.6 LYMPHS PCT % 20.1 19.8 13.7 MONOS PCT % 10.4 9.6 7.5 EOS PCT % 5.0 5.1 2.1 Recent Labs Lab Units 06/18/22 0426 06/17/22 0442 06/16/22 0640 06/16/22 0428 06/13/22 0950 06/12/22 0819 SODIUM mmol/L 137 136 -- 140 < > 140 POTASSIUM PLASMA mmol/L 3.5 3.5 -- 4.4 < > 4.3 CHLORIDE mmol/L 108 109 -- 112* < > 107 CO2 mmol/L 20* 20* -- 13* < > 18* BUN SERUM mg/dL 9 11 -- 17 < > 75* CREATININE mg/dL 1.70* 1.60* -- 1.50* < > 1.80* [id number] mL/min/1.73 m2 42 45 -- 49 < > 39 GLUCOSE mg/dL 126 108 -- 64* < > 149 POC GLUCOSE MONITOR -- -- < > -- -- -- CALCIUM mg/dL 8.2* 8.2* -- 7.8* < > 8.4* ALBUMIN g/dL -- -- -- -- -- 3.6 < > = values in this interval not displayed. Recent Labs Lab Units 06/18/22 0426 06/17/22 0442 06/16/22 1711 06/16/22 0640 06/16/22 0428 06/13/22 0950 06/12/22 0819 SODIUM mmol/L 137 136 -- -- 140 < > 140 POTASSIUM PLASMA mmol/L 3.5 3.5 -- -- 4.4 < > 4.3 CHLORIDE mmol/L 108 109 -- -- 112* < > 107 CO2 mmol/L 20* 20* -- -- 13* < > 18* ANIONGAP mmol/L 9 7 -- -- 15 < > 15 GLUCOSE mg/dL 126 108 -- -- 64* < > 149 POC GLUCOSE MONITOR mg/dL -- -- 108 < > -- -- -- BUN SERUM mg/dL 9 11 -- -- 17 < > 75* CREATININE mg/dL 1.70* 1.60* -- -- 1.50* < > 1.80* CALCIUM mg/dL 8.2* 8.2* -- -- 7.8* < > 8.4* ALBUMIN g/dL -- -- -- -- -- -- 3.6 ALK PHOS Units/L -- -- -- -- -- -- 71 ALT Units/L -- -- -- -- -- -- 21 AST Units/L -- -- -- -- -- -- 9* BILIRUBIN TOTAL mg/dL -- -- -- -- -- -- 0.5 < > = values in this interval not displayed. Recent Labs Lab Units 06/12/22 0819 ALK PHOS Units/L 71 BILIRUBIN TOTAL mg/dL 0.5 TOTAL PROTEIN g/dL 5.6* ALT Units/L 21 AST Units/L 9* Recent Labs Lab Units 06/12/22 0819 PROTIME (PT) sec 13.3 INR 1.0 Lab Results Component Value Date GLUCOSE 126 06/18/2022 GLUCOSE 108 06/17/2022 GLUCOSE 108 06/16/2022 Implant: Implants No active implants to display in this view. General Precautions (If Blank, None Found): Isolation Status: No active isolations Nutritional Status and in-house recommendations: Dietary Orders (From admission, onward) Start Ordered 06/16/22 0624 Adult Diet Clear Liquid Diet effective now Question: ([facility]) Diet type Answer: Clear Liquid 06/16/22 0623 Anticoagulation Indication: INR: 06/12/2022: 1.0 Warfarin Administrations (last 168 hours) None Oxygen Status: O2 Therapy for the past 12 hrs: O2 Therapy 06/18/22 0451 None (Room air) Wound Care Instructions Active LDAs (If Blank, None Found): Peripheral IV 06/15/22 20 G Distal;Posterior;Right Forearm (Active) Placement Date/Time: 06/15/221999 Type: Angiocath Size (Gauge): 20 G Location Orientation: Distal;Posterior;Right Location: Forearm Site Prep: Alcohol Inserted by: Margaux Prasad RN Insertion attempts: 1Patient Tolerance: Tolerated well Patient Emergency Contact: Primary Emergency Contact: ADRIÁN ROSADO Immunization Status at Discharge Immunization History Administered Date(s) Administered ??? Influenza Virus Vaccine Trivalent Mdv 08/14/2018 ??? Influenza, Quad, Adjuvantated, Intramuscular 07/21/2020 ??? Influenza, Quadrivalent, Split, Intramuscular 08/11/2015, 06/26/2019, 07/21/2020, 07/28/2021 ??? Influenza, Quadrivalent, Split, Preservative Free, Intramuscular 07/26/2015 ??? Influenza, Trivalent, Adjuvanted, Intramuscular 08/14/2018, 06/26/2019 ??? Influenza, Trivalent, High Dose, Split, Preservative Free, Intramuscular 08/16/2017 ??? Influenza, Trivalent, Preservative Free, Intramuscular 08/16/2016 ??? Moderna SARS-CoV-2 Vaccination (12+ YRS) 12/15/2020, 01/16/2021, 08/21/2021 ??? Pneumococcal Conjugate PCV 13 08/10/2014 ??? Pneumococcal Polysaccharide PPV23 05/22/2016 ??? Td, Unspecified 08/10/2014, 08/10/2014, 11/15/2021 ??? ZOSTER LIVE 09/06/2014, 09/06/2014 ??? ZOSTER Recombinant 06/23/2018, 08/23/2018 Ramon Cruz MD documented in this encounter Discharge Instructions * Attachments The following attachments cannot be sent through Care Everywhere. 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 [address] (PROTONIX) 40 [...] 07/13/2019 4 documented as of this encounter Ordered Prescriptions Prescription Sig Dispense Quantity Refills Last Filled Start Date End Date pantoprazole DR (PROTONIX) 40 mg EC tablet Take 1 tablet (40 mg total) by mouth 2 (two) times a day before breakfast and dinner 60 tablet 06/18/2022 4 documented in this encounter Discharge Disposition Disposition Code Departure Means Destination Discharge to home or self care documented in this encounter Progress Notes * Massiel Conley PTA - 06/18/2022 11:21 AM CDT Physical Therapy 06/18/22 1121 PT Last Visit Session Type Treatment Safe Environment Arm Band Checked;Call Light within Reach;Patient found sitting in Chair;Overbed Table within Reach Subjective Agreeable to Therapy Family/Caregiver Present No Precautions Precaution Comments tele Pain Assessment Pain Assessment No/denies pain Bed Mobility Bed Mobility No Transfer 1 Transfer From 1 Sit Transfer Type 1 To and from Transfer to 1 Stand Technique 1 Sit to stand;Stand to sit Transfer Device 1 Wheeled walker Transfer Level of Assistance 1 Contact Guard Assist Ambulation Ambulation Yes Ambulation 1 Distance (ft) 1 150 Surface 1 Level tile Device 1 Wheeled walker Assistance 1 Contact Guard Assist Quality of Gait 1 good Ambulation Comments 1 Pt amb with steady gt, no LOB or SOB noted. Pt safe with his walker, maneuvered it well with walking and during turns as well as safe with sittting down in chair, good hand placement. Pt left seated in chair, states he may be D/C later today. Recommendation/Plan PT Recommendation/Plan (S) Home with intermittent assist;Home Health PT PT Equipment Recommended (S) Wheeled walker Multi-Disciplinary Problems (from Physical Therapy) Active Problems Problem: PT [facility] Start Date: 06/15/22 Goal Start Date Expected End Date End Date PT LTG - [facility] 1 06/15/22 06/29/22 -- Goal Details: 1) Supine<>Sit independently-N/T 2) Sit<>Stand with wheeled walker, modified independent-met 3) Pt will ambulate 200 feet with wheeled walker, modified independent-progressing 4) Pt will ascend/descend four stairs with supervision-N/T Educated the patient to the role of physical therapy, plan of care, goals of therapy, rationale forprogressing mobility. Patient was left seated in str back chair with all needs met and equipment intact. Safety measures include oriented to call light and placed within reach and personal items within reach. Mobility andADL status posted at bedside and within medical record. * Ivon Flood COTA - 06/18/2022 9:40 AM CDT Occupational Therapy 06/18/22 0936 General Session Type Treatment OT Received On 06/18/22 Safe Environment Arm Band Checked;Call Light within Reach;Notified RN;Patient found sitting in Chair;Overbed Table within Reach Subjective Agreeable to Therapy Subjective Comment I am doing better Grooming Grooming: Where assessed Standing at sink Grooming: Level of assistance Standby Assist Transfer 1 Transfer From 1 Sit Transfer Type 1 To and from Transfer to 1 Stand Transfer Device 1 Wheeled walker Transfer Level of Assistance 1 Standby Assist Activity Tolerance Endurance Tolerates 10 - 20 min activity with multiple rests Other Comments Comments Pt able to perform functional mobility using w/w while incoporating functional reaching with no balance loss noted. Assessment Prognosis Good Plan Plan Continue with current plan Recommendation/Plan OT Recommendation (S) Home with intermittent assist;Home Health OT Progress Progressing toward goals * Ramon Rosenthal MD - 06/17/2022 8:59 AM CDT Images from the original note were not included. General Medicine Daily Progress SUBJECTIVE The patient was seen examined at bedside, he is hemodynamically stable AO x3, patient tolerated diet Interval History: Patient is a 28-year-old male with past medical history of celiac disease, CKD stage 3, Crohn's disease, CAD, peripheral vascular disease was admitted in hospital secondary to GI bleed. Patient was presented with melena , GI was consulted they took the patient for upper endoscopy,it reported esophageal ulcer with visible vessel that was treated with epinephrine and hemoclip. Asper recommendation from GI patient has remained NPO until SaturdayJune 16 after that continue 10days of treatment with full liquid diet and upper endoscopy has to be repeated. In the case of a rebleed patient will require to be transferred to a tertiary center for possible angiogram with embolization. Patient has been tolerating diet. Patient hemoglobin yesterday show a dropped from 9.8-7 unsure if this bleeding was secondary to repeat the versus prior bleeding and start doing hemoglobin q12, transfuse 1 unit of PRBCs. Hemoglobin went to 7.7 at this morning hemoglobin went to 9.1>9.4>9.3>9.5. OBJECTIVE Vitals: 24hr Min/Max: Temp Min: 36.4 ??C (97.5 ??F) Max: 36.7 ??C (98 ??F) Pulse Min: 56 Max: 67 BP Min: 112/67 Max: 153/83 Resp Min: 16 Max: 22 SpO2 Min: 95 % Max: 100 % Most Recent : Vitals: 06/17/22 0753 BP: Pulse: Resp: Temp: SpO2: 99% I/O last 2 completed shifts: In: 960 [P.O.:960] Out: 400 [Urine:400] I/O this shift: In: - Out: 300 [Urine:300] Physical Exam: Eyes: EOMI, CHIVO, sclare non icteric Neck: supple, no nuchal ridigity, no gross carotid bruits appreciated Pharynx: No gross oral lesion, tongue midline, mucosa moist Lungs CTA Heart: [id number], no significant murmur or gallop Abd: +BS, Non Tender, Non distended, No gross hepatomegaly Lower Ext: No gross edema, pedal artery pulses are palpable bilaterally Neuro: No new deficits appreciated Musculoskeletal: no gross joint erythema, edema, tenderness Skin: No new change Lab/Current Medication Review: Recent Results (from the past 24 hour(s)) POCT glucose Collection Time: 06/16/22 9:48 AM Result Value Ref Range Glucose, POC 173 70 - 199 mg/dL Glucose comment 1 Use This Result Glucose comment 2 Will Notify Nurse POCT glucose Collection Time: 06/16/22 12:13 PM Result Value Ref Range Glucose, POC 101 70 - 199 mg/dL Glucose comment 1 Use This Result Glucose comment 2 Will Notify Nurse POCT glucose Collection Time: 06/16/22 5:11 PM Result Value Ref Range Glucose, POC 108 70 - 199 mg/dL Glucose comment 1 Use This Result Glucose comment 2 Will Notify Nurse Basic metabolic panel Collection Time: 06/17/22 4:42 AM Result Value Ref Range Sodium 136 135 - 145 mmol/L Potassium, pl 3.5 3.3 - 4.9 mmol/L Chloride 109 97 - 110 mmol/L CO2 20 (L) 22 - 32 mmol/L Anion gap 7 2 - 15 mmol/L BUN 11 8 - 25 mg/dL Creatinine 1.60 (H) 0.80 - 1.30 mg/dL Glucose 108 70 - 199 mg/dL Calcium 8.2 (L) 8.5 - 10.3 mg/dL CBC with auto differential Collection Time: 06/17/22 4:42 AM Result Value Ref Range WBC 7.3 3.8 - 9.9 K/cumm Hgb 9.5 (L) 13.0 - 17.5 g/dL Hct 29.0 (L) 38.9 - 50.3 % Plt 144 (L) 150 - 400 K/cumm MPV 11.5 9.1 - 12.3 fL RBC 3.05 (L) 4.30 - 5.80 M/cumm MCV 95.1 81.3 - 96.4 fL MCH 31.1 27.1 - 33.3 pg MCHC 32.8 32.3 - 35.7 g/dL RDW CV 15.9 (H) 11.1 - 14.9 % RDW SD 54.2 (H) 35.7 - 48.1 fL NRBC abs 0.00 0.00 - 0.01 K/cumm Differential, auto Collection Time: 06/17/22 4:42 AM Result Value Ref Range Neutrophil abs 4.5 1.7 - 6.5 K/cumm Imm gran abs 0.2 (H) 0.0 - 0.1 K/cumm Lymphocyte abs 1.4 0.8 - 3.3 K/cumm Monocyte abs 0.7 0.2 - 0.8 K/cumm Eosinophil abs 0.4 0.0 - 0.5 K/cumm Basophil abs 0.0 0.0 - 0.1 K/cumm Neutrophil pct 61.8 % Imm gran pct 3.3 % Lymphocyte pct 19.8 % Monocyte pct 9.6 % Eosinophil pct 5.1 % Basophil pct 0.4 % eGFR Collection Time: 06/17/22 4:42 AM Result Value Ref Range eGFR 45 mL/min/1.73 m2 Current Facility-Administered Medications Medication Dose Route Frequency Provider Last Rate Last Admin ??? hydrALAZINE (APRESOLINE) injection 10 mg 10 mg intravenous Q6H PRN Ramon Rosenthal MD ??? ipratropium-albuteroL (DUO-NEB) 0.5-2.5 mg/3 mL nebulizer solution 3 mL 3 mL nebulization BID (RT) Ramon Rosenthal MD 3 mL at 06/17/22 8969 ??? levothyroxine (SYNTHROID) injection 60 mcg 60 mcg intravenous Daily Ramon Rosenthal MD 60 mcg at 06/17/22 3792 ??? pantoprazole (PROTONIX) 4 mg/mL injection 40 mg 40 mg intravenous BID Ramon Rosenthal MD 40 mg at 06/17/22 0745 A/P: Principal Problem: Melena Active Problems: Coronary artery disease History of Crohn's disease Leukocytosis Peripheral vascular disease (CMS/HCC) (HCC) Chronic kidney disease, stage III (moderate) (HCC) Resolved Problems: No resolved hospital problems. Upper GI bleed Reports 2 days of loose, black stool Hemodynamically stable Patient hemoglobin yesterday show a dropped from 9.8-7 unsure if this bleeding was secondary to repeat the versus prior bleeding and start doing hemoglobin q12, transfuse 1 unit of PRBCs. Hemoglobin went to 7.7 at this morning hemoglobin went to 9.1. H&H has remained stable with started putting the patient on daily CBC instead of q.12 BUN elevated to 75 GI consulted appreciated Upper endoscopy show esophageal ulcer with vessel that was clipped and treated also with epinephrine Patient started on clear liquid diet Discontinue IV fluids Cont Protonix IV BID Hold Plavix, Pletal, ASA Monitor H&H, no acute need for transfusion Anticipated discharge in 48 hours ?? Leukocytosis Was recently on prednisone taper for MSK complaints No active s/s infection, monitor for now Patient WBC count trended down to normal ?? H/o Crohn's disease H/o bowel resection On mesalamine, will hold pending GI recs ?? CKD stage IIIb H/o BEVERLY requiring HD in 2014 due to extreme volume depletion, hypotension Cr 1.8, appears near baseline IVF as above Cont sodium bicarb Monitor ?? PVD S/p balloon angioplasty in the past No current symptoms Holding ASA, Pletal, Plavix due to acute GIB ?? CAD S/p atherectomy, PCI/stent in 2016 Holding ASA, Plavix due to acute GIB Cont statin, low dose BB ?? Hypothyroidism IV levothyroxine given 60 mcg, will transition to p.o. levothyroxine since patient is clear solid food DVT prophylaxis: Sequentially PT/OT: To see the patient Case discussed with Case Management and Photo Producer Medical complexity/risk: Moderate complexity case it took me 25 minutes review the case, place pertinent orders, discussed current findings with patient examined him Voice recognition software MModal Fluency Direct may have been used dictate and transcribe this document. Ski Patroller variances may occur. Despite proofreading, typographical errors may occur. Ramon Cruz MD 06/17/2022 8:59 AM * Eugene Hartman - 06/16/2022 2:41 PM CDT 06/16/22 1400 Time Spent Start Time 1438 Patient Spiritual Assessment Spirituality Assessed Yes Orthodox Affiliation Islam Clinical Encounter Type Visited With Patient;Patient and family together Response Type Routine visit Routine Visit Introduction Reason for visit Support Interventions Interventions Offer emotional support;Active listening;Prayer * Ramon Rosenthal MD - 06/16/2022 11:07 AM CDT Images from the original note were not included. General Medicine Daily Progress SUBJECTIVE The patient was seen examined at bedside, he is hemodynamically stable AO x3, the patient said he is feeling better denies acute complaints she was started on clear liquid diet Interval History: Patient is a 28-year-old male with past medical history of celiac disease, CKD stage 3, Crohn's disease, CAD, peripheral vascular disease was admitted in hospital secondary to GI bleed. Patient was presented with melena , GI was consulted they took the patient for upper endoscopy,it reported esophageal ulcer with visible vessel that was treated with epinephrine and hemoclip. Asper recommendation from GI patient has remained NPO until SaturdayJune 16 after that continue 10days of treatment with full liquid diet and upper endoscopy has to be repeated. In the case of a rebleed patient will require to be transferred to a tertiary center for possible angiogram with embolization. Patient hemoglobin yesterday show a dropped from 9.8-7 unsure if this bleeding was secondary to repeat the versus prior bleeding and start doing hemoglobin q12, transfuse 1 unit of PRBCs. Hemoglobin went to 7.7 at this morning hemoglobin went to 9.1>9.4>9.3. OBJECTIVE Vitals: 24hr Min/Max: Temp Min: 36.4 ??C (97.6 ??F) Max: 36.8 ??C (98.3 ??F) Pulse Min: 62 Max: 65 BP Min: 132/69 Max: 158/88 Resp Min: 16 Max: 18 SpO2 Min: 99 % Max: 100 % Most Recent : Vitals: 06/16/22 0802 BP: Pulse: Resp: Temp: SpO2: 99% I/O last 2 completed shifts: In: 1140 [P.O.:240; I.V.:900] Out: 1450 [Urine:1450] I/O this shift: In: 480 [P.O.:480] Out: - Physical Exam: Eyes: EOMI, CHIVO, sclare non icteric Neck: supple, no nuchal ridigity, no gross carotid bruits appreciated Pharynx: No gross oral lesion, tongue midline, mucosa moist Lungs CTA Heart: [id number], no significant murmur or gallop Abd: +BS, Non Tender, Non distended, No gross hepatomegaly Lower Ext: No gross edema, pedal artery pulses are palpable bilaterally Neuro: No new deficits appreciated Musculoskeletal: no gross joint erythema, edema, tenderness Skin: No new change Lab/Current Medication Review: Recent Results (from the past 24 hour(s)) CBC with auto differential Collection Time: 06/15/22 11:13 AM Result Value Ref Range WBC 9.4 3.8 - 9.9 K/cumm Hgb 9.4 (L) 13.0 - 17.5 g/dL Hct 28.5 (L) 38.9 - 50.3 % Plt 138 (L) 150 - 400 K/cumm MPV 11.2 9.1 - 12.3 fL RBC 2.98 (L) 4.30 - 5.80 M/cumm MCV 95.6 81.3 - 96.4 fL MCH 31.5 27.1 - 33.3 pg MCHC 33.0 32.3 - 35.7 g/dL RDW CV 16.4 (H) 11.1 - 14.9 % RDW SD 56.7 (H) 35.7 - 48.1 fL NRBC abs 0.00 0.00 - 0.01 K/cumm Differential, auto Collection Time: 06/15/22 11:13 AM Result Value Ref Range Neutrophil abs 7.4 (H) 1.7 - 6.5 K/cumm Imm gran abs 0.3 (H) 0.0 - 0.1 K/cumm Lymphocyte abs 1.1 0.8 - 3.3 K/cumm Monocyte abs 0.5 0.2 - 0.8 K/cumm Eosinophil abs 0.1 0.0 - 0.5 K/cumm Basophil abs 0.0 0.0 - 0.1 K/cumm Neutrophil pct 78.3 % Imm gran pct 3.1 % Lymphocyte pct 11.7 % Monocyte pct 5.4 % Eosinophil pct 1.3 % Basophil pct 0.2 % Basic metabolic panel Collection Time: 06/16/22 4:28 AM Result Value Ref Range Sodium 140 135 - 145 mmol/L Potassium, pl 4.4 3.3 - 4.9 mmol/L Chloride 112 (H) 97 - 110 mmol/L CO2 13 (L) 22 - 32 mmol/L Anion gap 15 2 - 15 mmol/L BUN 17 8 - 25 mg/dL Creatinine 1.50 (H) 0.80 - 1.30 mg/dL Glucose 64 (L) 70 - 199 mg/dL Calcium 7.8 (L) 8.5 - 10.3 mg/dL CBC with auto differential Collection Time: 06/16/22 4:28 AM Result Value Ref Range WBC 9.0 3.8 - 9.9 K/cumm Hgb 9.3 (L) 13.0 - 17.5 g/dL Hct 28.8 (L) 38.9 - 50.3 % Plt 140 (L) 150 - 400 K/cumm MPV 11.5 9.1 - 12.3 fL RBC 2.95 (L) 4.30 - 5.80 M/cumm MCV 97.6 (H) 81.3 - 96.4 fL MCH 31.5 27.1 - 33.3 pg MCHC 32.3 32.3 - 35.7 g/dL RDW CV 16.0 (H) 11.1 - 14.9 % RDW SD 56.2 (H) 35.7 - 48.1 fL NRBC abs 0.00 0.00 - 0.01 K/cumm Differential, auto Collection Time: 06/16/22 4:28 AM Result Value Ref Range Neutrophil abs 6.6 (H) 1.7 - 6.5 K/cumm Imm gran abs 0.2 (H) 0.0 - 0.1 K/cumm Lymphocyte abs 1.2 0.8 - 3.3 K/cumm Monocyte abs 0.7 0.2 - 0.8 K/cumm Eosinophil abs 0.2 0.0 - 0.5 K/cumm Basophil abs 0.0 0.0 - 0.1 K/cumm Neutrophil pct 73.6 % Imm gran pct 2.7 % Lymphocyte pct 13.7 % Monocyte pct 7.5 % Eosinophil pct 2.1 % Basophil pct 0.4 % eGFR Collection Time: 06/16/22 4:28 AM Result Value Ref Range eGFR 49 mL/min/1.73 m2 POCT glucose Collection Time: 06/16/22 6:40 AM Result Value Ref Range Glucose, POC 66 (L) 70 - 199 mg/dL POCT glucose Collection Time: 06/16/22 6:54 AM Result Value Ref Range Glucose, POC 70 70 - 199 mg/dL Glucose comment 1 Use This Result Glucose comment 2 Will Notify Nurse POCT glucose Collection Time: 06/16/22 7:05 AM Result Value Ref Range Glucose, POC 78 70 - 199 mg/dL Glucose comment 1 Use This Result Glucose comment 2 Will Notify Nurse POCT glucose Collection Time: 06/16/22 7:32 AM Result Value Ref Range Glucose, POC 94 70 - 199 mg/dL Glucose comment 1 Use This Result POCT glucose Collection Time: 06/16/22 7:51 AM Result Value Ref Range Glucose, POC 107 70 - 199 mg/dL Glucose comment 1 Use This Result POCT glucose Collection Time: 06/16/22 9:48 AM Result Value Ref Range Glucose, POC 173 70 - 199 mg/dL Glucose comment 1 Use This Result Glucose comment 2 Will Notify Nurse Current Facility-Administered Medications Medication Dose Route Frequency Provider Last Rate Last Admin ??? hydrALAZINE (APRESOLINE) injection 10 mg 10 mg intravenous Q6H PRN Ramon Rosenthal MD ??? ipratropium-albuteroL (DUO-NEB) 0.5-2.5 mg/3 mL nebulizer solution 3 mL 3 mL nebulization BID (RT) Ramon Rosenthal MD 3 mL at 06/16/22 0802 ??? [START ON 06/17/2022] levothyroxine (SYNTHROID) injection 60 mcg 60 mcg intravenous Daily Ramon Rosenthal MD ??? pantoprazole (PROTONIX) 4 mg/mL injection 40 mg 40 mg intravenous BID Ramon Rosenthal MD 40 mg at 06/16/22 0833 ??? sodium chloride 0.9% infusion 75 mL/hr intravenous Continuous Ramon Rosenthal MD 75 mL/hr at 06/15/222216 75 mL/hr at 06/15/222216 ??? sodium chloride 0.9% infusion 50 mL/hr intravenous Continuous Carlos A Lee, DO A/P: Principal Problem: Melena Active Problems: Coronary artery disease History of Crohn's disease Leukocytosis Peripheral vascular disease (CMS/HCC) (HCC) Chronic kidney disease, stage III (moderate) (HCC) Resolved Problems: No resolved hospital problems. Upper GI bleed Reports 2 days of loose, black stool Hemodynamically stable Patient hemoglobin yesterday show a dropped from 9.8-7 unsure if this bleeding was secondary to repeat the versus prior bleeding and start doing hemoglobin q12, transfuse 1 unit of PRBCs. Hemoglobin went to 7.7 at this morning hemoglobin went to 9.1. H&H has remained stable with started putting the patient on daily CBC instead of q.12 BUN elevated to 75 GI consulted appreciated Upper endoscopy show esophageal ulcer with vessel that was clipped and treated also with epinephrine Patient started on clear liquid diet Discontinue IV fluids Cont Protonix IV BID Hold Plavix, Pletal, ASA Monitor H&H, no acute need for transfusion ?? Leukocytosis Was recently on prednisone taper for MSK complaints No active s/s infection, monitor for now Patient WBC count trended down to normal ?? H/o Crohn's disease H/o bowel resection On mesalamine, will hold pending GI recs ?? CKD stage IIIb H/o BEVERLY requiring HD in 2014 due to extreme volume depletion, hypotension Cr 1.8, appears near baseline IVF as above Cont sodium bicarb Monitor ?? PVD S/p balloon angioplasty in the past No current symptoms Holding ASA, Pletal, Plavix due to acute GIB ?? CAD S/p atherectomy, PCI/stent in 2016 Holding ASA, Plavix due to acute GIB Cont statin, low dose BB ?? Hypothyroidism IV levothyroxine given 60 mcg, will transition to p.o. levothyroxine since patient is clear solid food DVT prophylaxis: Sequentially PT/OT: To see the patient Case discussed with Case Management and Photo Producer Medical complexity/risk: Moderate complexity case it took me 25 minutes review the case, place pertinent orders, discussed current findings with patient examined him Voice recognition software MModal Fluency Direct may have been used dictate and transcribe this document. Ski Patroller variances may occur. Despite proofreading, typographical errors may occur. Ramon Cruz MD 06/16/2022 11:07 AM * Mona Granados, CONTROL ENGINEER - 06/16/2022 10:26 AM CDT Physical Therapy 06/16/22 1026 PT Last Visit Session Type Treatment PT Received On 06/16/22 Safe Environment Arm Band Checked;Call Light within Reach;Session Completed Bedside;Patient found in Supine;Overbed Table within Reach Subjective Agreeable to Therapy Subjective Comment Pt voiced no c/o this date. Family/Caregiver Present No Precautions Precautions Bed/Chair Alarm Pain Assessment Pain Assessment No/denies pain Cognition Arousal/Alertness Alert Compliance/Behavior Easy to engage Bed Mobility 1 Bed Mobility From 1 Supine Bed Mobility Type 1 To and from Bed Mobility to 1 Edge of bed Level of Assistance 1 Contact Guard Assist Bed Mobility Comments 1 Pt requested back to bed after amb. Transfer 1 Transfer From 1 Sit Transfer Type 1 To and from Transfer to 1 Stand Transfer Device 1 Wheeled walker Transfer Level of Assistance 1 Contact Guard Assist Trials/Comments 1 cues for safety Ambulation 1 Distance (ft) 1 50 Surface 1 Level tile Device 1 Wheeled walker Other Apparatus 1 (IV) Assistance 1 Contact Guard Assist Gait: Requires verbal cues to 1 Use assistive device safely Ambulation Comments 1 Pt amb in room with steady gt. Recommendation/Plan PT Recommendation/Plan Home with intermittent assist;Home Health PT Educated the patient to the role of physical therapy, plan of care, goals of therapy, rationale forprogressing mobility and safety. Patient was left in supine with all needs met and equipment intact. Safety measures include bed alarm activated, oriented to call light and placed within reach, and personal items within reach. Mobility and ADL status posted at bedside and within medical record. Multi-Disciplinary Problems (from Physical Therapy) Active Problems Problem: PT Misc Start Date: 06/15/22 Goal Start Date Expected End Date End Date PT LTG - Misc 1 06/15/22 06/29/22 -- Goal Details: 1) Supine<>Sit independently 2) Sit<>Stand with wheeled walker, modified independent 3) Pt will ambulate 200 feet with wheeled walker, modified independent 4) Pt will ascend/descend four stairs with supervision Pt is progressing towards all goals. * Alvin Alicia MD - 06/15/2022 6:36 PM CDT GI Progress Note Patient's Name : Julius Rosado Subjective No hematemesis No melena Constitutional: No fatigue, weight loss, malaise and anorexia, Respiratory: NO shortness of breath, dyspnea on exertion and acute cough, Cardiovascular: No palpitations, chest pain, Gastrointestinal: No nausea, vomiting and abdominal pain, Genitourinary: No dysuria, frequency Skin: No rash Objective General appearance: alert, cooperative, no distress Head and neck. No JVD, No enlarged lymph nodes or thyromegaly Lungs: breath sounds normal and symmetric; no rales or wheezes Heart: regular rhythm, normal S1 and S2, without murmurs, gallops or rubs Abdomen: soft without mass, non-tender, with normal bowel sounds Extremities: no clubbing, cyanosis or edema Skin. No rash, discoloration Musculoskeletal no joint deformity [employer]. oriented , No tremor or new neurological findings LABS Recent Labs Lab Units 06/15/22 1113 06/14/22 2347 06/14/22 1131 WBC K/cumm 9.4 8.7 8.5 HEMOGLOBIN g/dL 9.4* 8.5* 8.7* HEMATOCRIT % 28.5* 26.5* 26.0* PLATELETS K/cumm 138* 134* 128* NEUTROS PCT % 78.3 69.8 73.6 LYMPHS PCT % 11.7 16.7 13.5 MONOS PCT % 5.4 6.9 6.6 EOS PCT % 1.3 3.1 2.5 Recent Labs Lab Units 06/15/22 0519 06/14/22 0421 06/13/22 0950 06/12/22 0819 SODIUM mmol/L 141 141 143 140 POTASSIUM PLASMA mmol/L 3.9 3.9 3.7 4.3 CHLORIDE mmol/L 112* 111* 114* 107 CO2 mmol/L 17* 19* 19* 18* ANIONGAP mmol/L 12 11 10 15 GLUCOSE mg/dL 74 93 95 149 BUN SERUM mg/dL 19 35* 54* 75* CREATININE mg/dL 1.50* 1.60* 1.70* 1.80* CALCIUM mg/dL 7.8* 7.7* 7.7* 8.4* ALBUMIN g/dL -- -- -- 3.6 ALK PHOS Units/L -- -- -- 71 ALT Units/L -- -- -- 21 AST Units/L -- -- -- 9* BILIRUBIN TOTAL mg/dL -- -- -- 0.5 Recent Labs Lab Units 06/12/22 0819 INR 1.0 Lab Results Lab Value Date/Time LIPASE 50 11/03/2019 1322 LIPASE 57 11/20/2016 0031 Lab Results Lab Value Date/Time AMYLASE 116 (H) 11/20/2016 0031 MEDICATIONS FOR CURRENT ENCOUNTER: SCHEDULED MEDICATIONS: Current Facility-Administered Medications: ??? hydrALAZINE (APRESOLINE) injection 10 mg, 10 mg, intravenous, Q6H PRN, Ramon Rosenthal MD ??? ipratropium-albuteroL (DUO-NEB) 0.5-2.5 mg/3 mL nebulizer solution 3 mL, 3 mL, nebulization, BID (RT), Ramon Rosenthal MD, 3 mL at 06/15/22 0723 ??? [START ON 06/17/2022] levothyroxine (SYNTHROID) injection 60 mcg, 60 mcg, intravenous, Daily, Ramon Rosenthal MD ??? pantoprazole (PROTONIX) 4 mg/mL injection 40 mg, 40 mg, intravenous, BID, Ramon Rosenthal MD, 40 mg at 06/15/22 0841 ??? sodium chloride 0.9% infusion, 75 mL/hr, intravenous, Continuous, Ramon Rosenthal MD,Last Rate: 75 mL/hr at 06/15/22 0730, 75 mL/hr at 06/15/22729 ??? sodium chloride 0.9% infusion, 50 mL/hr, intravenous, Continuous, Carlos A Lee, DO ??? hydrALAZINE sodium chloride 0.9%, 75 mL/hr, Last Rate: 75 mL/hr (06/15/22 0730) sodium chloride 0.9%, 50 mL/hr Old records reviewed, labs, x rays Assessment And plan Principal Problem: Melena Active Problems: Coronary artery disease History of Crohn's disease Leukocytosis Peripheral vascular disease (CMS/HCC) (HCC) Chronic kidney disease, stage III (moderate) (HCC) Esophageal ulcer with visible vessel. ?? 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 ?? Distal Hiatal Hernia from 35 to 40 cm. ? Stomach: Mild gastritis Above described hiatal hernia Old hematin? Duodenum normal in the bulb 2nd ??Portion ?? EGD Therapy: ?? 1. 2.5 ml of (1:10,000) epineprhine circuferentially placed 2. Hemoclip placed on vessel. Hemostasis achieved. ?? No complications, blood loss or implants ?? Assessment and plan ? NPO until Saturday Clears then from Saturday to Saturday Full liquids then for 10 days. Mechanical soft thereatfer Repeat EGD in 3 months as outpatient with his GI doctor. 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 ?? PPI Hold anticoagulation for 3 weeks if possible. ?? If rebleeds in this time, will need transfer for [facility] with angiography and embolization ?? Care plan discussed with attending. ?? 2. No further hematemesis or melena ?? 3. Acute blood loss anemia ?? Transfuse per primary ? Thank you for allowing me to care for your patient. ? * Trey Paris, PT - 06/15/2022 3:19 PM CDT Physical Therapy 06/15/22 7478 General Chart Reviewed Yes Session Type Evaluation PT Received On 06/15/22 Safe Environment Arm Band Checked;Call Light within Reach;Notified RN;Session Completed Bedside;Overbed Table within Reach;Bed in Lowest Position with Wheels locked (Pt found sitting up at edge of bed) Subjective Agreeable to Therapy Additional Pertinent History Pt admitted with melena. Hx includes: Crohn's disease, CAD, PVD, CKD, DJD, history of bowel resection Family/Caregiver Present Yes Physical Therapy-Patient Goal To return to my house. Precautions Precautions Fall risk Home Living Type of Home House Home Layout One level;Basement;Laundry in basement;Able to live on main level with bedroom/bathroom;Stairs with rails # of Steps-Railed 12 (down to basement for laundry) Home Access Stairs to enter without rails Entrance Stairs-Number of Steps 4 Home Mobility Equipment Wheeled walker Additional Comments Pt reports that he lives in a single story house with four steps to enter. The house has a basement and that is where the laundry room is. Pt reports that his kids can come over to assist with laundry. Prior Function Level of [place] Independent with ADLs;Independent functional transfers;Independent with ambulation Lives With Alone Receives Help From Family Driving Yes Mode of Transportation Car;Driven by self ADL Assistance Independent Fall within the last 6 months Yes Fall within the last 6 months comment 1 Prior Function Comments Pt reports that he normally walks without assistive device but will occasionally use his front wheeled walker. Activity Tolerance Endurance Tolerates 10 - 20 min activity with multiple rests Pain Assessment Pain Assessment 0-10 Pain Score 2 Patient's Stated Pain Goal No pain Pain Location Hip Pain Orientation Left (pt attributes to sciatica pain ) Cognition Arousal/Alertness Alert Attention Span Appears intact Memory Appears intact Current communication Appears Intact Orientation Oriented X4 (person, place, time, situation) Following Commands Follows all commands and directions without difficulty Bed Mobility 1 Bed Mobility Comments 1 Pt sitting up at edge of bed upon PT arrival Transfer 1 Transfer From 1 Sit Transfer Type 1 To and from Transfer to 1 Stand Technique 1 Sit to stand;Stand to sit Transfer Device 1 Wheeled walker Transfer Level of Assistance 1 Contact Guard Assist Trials/Comments 1 cues for hand placement when coming to standing Ambulation 1 Distance (ft) 1 25 Surface 1 Level tile Device 1 Wheeled walker Assistance 1 Contact Guard Assist Gait: Requires assist with 1 Maintaining balance Gait: Requires verbal cues to 1 Use assistive device safely;Improve upright posture RLE Assessment RLE Assessment WFL LLE Assessment LLE Assessment WFL Assessment Prognosis Good Problem List Gait deviations;Decreased strength;Decreased endurance;Impaired balance;Decreased mobility Plan Plan Plan of care initiated;If this is the last note, consider this the discharge summary Recommendation/Plan PT Recommendation/Plan (S) Home with intermittent assist;Home Health PT PT Frequency 5-7x/wk (1-2x/day) Treatment/Interventions Balance Training;Bed mobility;Endurance training;Functional activity;Functional transfer training;Gait training;Parent/caregiver training and education;Stair training;Strengthe hieu;Therapeutic activity;Therapeutic exercise;Transfer training PT Equipment Recommended (Pt has wheeled walker at home) PT - Next Appointment 06/29/22 PT Evaluation Complete Yes Multi-Disciplinary Problems (from Physical Therapy) Active Problems Problem: PT Misc Start Date: 06/15/22 Goal Start Date Expected End Date End Date PT LTG - [facility] [place] 1 06/15/22 06/29/22 -- Goal Details: 1) Supine<>Sit independently 2) Sit<>Stand with wheeled walker, modified independent 3) Pt will ambulate 200 feet with wheeled walker, modified independent 4) Pt will ascend/descend four stairs with supervision Educated the patient to the role of physical therapy, plan of care, goals of therapy, rationale forprogressing mobility and home safety. Patient was left in sitting at edge of bed with all needs met and equipment intact. Safety measuresinclude oriented to call light and placed within reach and personal items within reach. Mobility and ADL status posted within medical record. * Ramon Rosenthal MD - 06/15/2022 11:51 AM CDT Images from the original note were not included. General Medicine Daily Progress SUBJECTIVE The patient was seen examined at bedside, he is hemodynamically stable AO x3, the patient said he is feeling better denies acute complaints Interval History: Patient is a 28-year-old male with past medical history of celiac disease, CKD stage 3, Crohn's disease, CAD, peripheral vascular disease was admitted in hospital secondary to GI bleed. Patient was presented with melena , GI was consulted they took the patient for upper endoscopy,it reported esophageal ulcer with visible vessel that was treated with epinephrine and hemoclip. Asper recommendation from GI patient has remained NPO until SaturdayJune 16 after that continue 10days of treatment with full liquid diet and upper endoscopy has to be repeated. In the case of a rebleed patient will require to be transferred to a tertiary center for possible angiogram with embolization. Patient hemoglobin yesterday show a dropped from 9.8-7 unsure if this bleeding was secondary to repeat the versus prior bleeding and start doing hemoglobin q12, transfuse 1 unit of PRBCs. Hemoglobin went to 7.7 at this morning hemoglobin went to 9.1>9.4. OBJECTIVE Vitals: 24hr Min/Max: Temp Min: 36.6 ??C (97.9 ??F) Max: 36.9 ??C (98.5 ??F) Pulse Min: 61 Max: 73 BP Min: 126/69 Max: 152/67 Resp Min: 18 Max: 20 SpO2 Min: 97 % Max: 100 % Most Recent : Vitals: 06/15/22 0809 BP: 126/69 Pulse: 73 Resp: 18 Temp: 36.6 ??C (97.9 ??F) SpO2: 100% I/O last 2 completed shifts: In: 850 [I.V.:850] Out: 1025 [Urine:1025] I/O this shift: In: - Out: 350 [Urine:350] Physical Exam: Eyes: EOMI, CHIVO, sclare non icteric Neck: supple, no nuchal ridigity, no gross carotid bruits appreciated Pharynx: No gross oral lesion, tongue midline, mucosa moist Lungs CTA Heart: [id number], no significant murmur or gallop Abd: +BS, Non Tender, Non distended, No gross hepatomegaly Lower Ext: No gross edema, pedal artery pulses are palpable bilaterally Neuro: No new deficits appreciated Musculoskeletal: no gross joint erythema, edema, tenderness Skin: No new change Lab/Current Medication Review: Recent Results (from the past 24 hour(s)) CBC with auto differential Collection Time: 06/14/22 11:47 PM Result Value Ref Range WBC 8.7 3.8 - 9.9 K/cumm Hgb 8.5 (L) 13.0 - 17.5 g/dL Hct 26.5 (L) 38.9 - 50.3 % Plt 134 (L) 150 - 400 K/cumm MPV 11.5 9.1 - 12.3 fL RBC 2.78 (L) 4.30 - 5.80 M/cumm MCV 95.3 81.3 - 96.4 fL MCH 30.6 27.1 - 33.3 pg MCHC 32.1 (L) 32.3 - 35.7 g/dL RDW CV 16.5 (H) 11.1 - 14.9 % RDW SD 57.2 (H) 35.7 - 48.1 fL NRBC abs 0.00 0.00 - 0.01 K/cumm Differential, auto Collection Time: 06/14/22 11:47 PM Result Value Ref Range Neutrophil abs 6.1 1.7 - 6.5 K/cumm Imm gran abs 0.3 (H) 0.0 - 0.1 K/cumm Lymphocyte abs 1.5 0.8 - 3.3 K/cumm Monocyte abs 0.6 0.2 - 0.8 K/cumm Eosinophil abs 0.3 0.0 - 0.5 K/cumm Basophil abs 0.0 0.0 - 0.1 K/cumm Neutrophil pct 69.8 % Imm gran pct 3.3 % Lymphocyte pct 16.7 % Monocyte pct 6.9 % Eosinophil pct 3.1 % Basophil pct 0.2 % Basic metabolic panel Collection Time: 06/15/22 5:19 AM Result Value Ref Range Sodium 141 135 - 145 mmol/L Potassium, pl 3.9 3.3 - 4.9 mmol/L Chloride 112 (H) 97 - 110 mmol/L CO2 17 (L) 22 - 32 mmol/L Anion gap 12 2 - 15 mmol/L BUN 19 8 - 25 mg/dL Creatinine 1.50 (H) 0.80 - 1.30 mg/dL Glucose 74 70 - 199 mg/dL Calcium 7.8 (L) 8.5 - 10.3 mg/dL eGFR Collection Time: 06/15/22 5:19 AM Result Value Ref Range eGFR 49 mL/min/1.73 m2 CBC with auto differential Collection Time: 06/15/22 11:13 AM Result Value Ref Range WBC 9.4 3.8 - 9.9 K/cumm Hgb 9.4 (L) 13.0 - 17.5 g/dL Hct 28.5 (L) 38.9 - 50.3 % Plt 138 (L) 150 - 400 K/cumm MPV 11.2 9.1 - 12.3 fL RBC 2.98 (L) 4.30 - 5.80 M/cumm MCV 95.6 81.3 - 96.4 fL MCH 31.5 27.1 - 33.3 pg MCHC 33.0 32.3 - 35.7 g/dL RDW CV 16.4 (H) 11.1 - 14.9 % RDW SD 56.7 (H) 35.7 - 48.1 fL NRBC abs 0.00 0.00 - 0.01 K/cumm Differential, auto Collection Time: 06/15/22 11:13 AM Result Value Ref Range Neutrophil abs 7.4 (H) 1.7 - 6.5 K/cumm Imm gran abs 0.3 (H) 0.0 - 0.1 K/cumm Lymphocyte abs 1.1 0.8 - 3.3 K/cumm Monocyte abs 0.5 0.2 - 0.8 K/cumm Eosinophil abs 0.1 0.0 - 0.5 K/cumm Basophil abs 0.0 0.0 - 0.1 K/cumm Neutrophil pct 78.3 % Imm gran pct 3.1 % Lymphocyte pct 11.7 % Monocyte pct 5.4 % Eosinophil pct 1.3 % Basophil pct 0.2 % Current Facility-Administered Medications Medication Dose Route Frequency Provider Last Rate Last Admin ??? hydrALAZINE (APRESOLINE) injection 10 mg 10 mg intravenous Q6H PRN Ramon Rosenthal MD ??? ipratropium-albuteroL (DUO-NEB) 0.5-2.5 mg/3 mL nebulizer solution 3 mL 3 mL nebulization BID (RT) Ramon Rosenthal MD 3 mL at 06/15/22 0723 ??? [START ON 06/17/2022] levothyroxine (SYNTHROID) injection 60 mcg 60 mcg intravenous Daily Ramon Rosenthal MD ??? pantoprazole (PROTONIX) 4 mg/mL injection 40 mg 40 mg intravenous BID Ramon Rosenthal MD 40 mg at 06/15/22 0841 ??? sodium chloride 0.9% infusion 75 mL/hr intravenous Continuous Ramon Rosenthal MD 75 mL/hr at 06/14/22 1753 75 mL/hr at 06/14/22 1753 ??? sodium chloride 0.9% infusion 50 mL/hr intravenous Continuous Carlos A Lee, DO A/P: Principal Problem: Melena Active Problems: Coronary artery disease History of Crohn's disease Leukocytosis Peripheral vascular disease (CMS/HCC) (HCC) Chronic kidney disease, stage III (moderate) (HCC) Resolved Problems: No resolved hospital problems. Upper GI bleed Reports 2 days of loose, black stool Hemodynamically stable Patient hemoglobin yesterday show a dropped from 9.8-7 unsure if this bleeding was secondary to repeat the versus prior bleeding and start doing hemoglobin q12, transfuse 1 unit of PRBCs. Hemoglobin went to 7.7 at this morning hemoglobin went to 9.1. H&H has remained stable with started putting the patient on daily CBC instead of q.12 BUN elevated to 75 GI consulted appreciated Upper endoscopy show esophageal ulcer with vessel that was clipped and treated also with epinephrine Keep NPO, IVF @ 75ml/hr. Tomorrow patient can start clear liquid diet Cont Protonix IV BID Hold Plavix, Pletal, ASA Monitor H&H, no acute need for transfusion ?? Leukocytosis Was recently on prednisone taper for MSK complaints No active s/s infection, monitor for now Patient WBC count trended down to normal ?? H/o Crohn's disease H/o bowel resection On mesalamine, will hold pending GI recs ?? CKD stage IIIb H/o BEVERLY requiring HD in 2014 due to extreme volume depletion, hypotension Cr 1.8, appears near baseline IVF as above Cont sodium bicarb Monitor ?? PVD S/p balloon angioplasty in the past No current symptoms Holding ASA, Pletal, Plavix due to acute GIB ?? CAD S/p atherectomy, PCI/stent in 2016 Holding ASA, Plavix due to acute GIB Cont statin, low dose BB ?? Hypothyroidism IV levothyroxine given 60 mcg, will transition to p.o. levothyroxine since patient is clear solid food DVT prophylaxis: Sequentially PT/OT: To see the patient Case discussed with Case Management and Photo Producer Medical complexity/risk: Moderate complexity case it took me 26 minutes review the case, place pertinent orders, discussed current findings with patient examined him Voice recognition software MModal Fluency Direct may have been used dictate and transcribe this document. Ski Patroller variances may occur. Despite proofreading, typographical errors may occur. Ramon Cruz MD 06/15/2022 11:52 AM * Kiesha Sky RN - 06/15/2022 11:40 AM CDT Case Management Progression of Care Note: Continued Stay Review: Reviewed labs: Na+ 141, Cl 112, CO2 17, Cr 1.5. Room air with an O2 sat 100%this am. Synthroid 50mcg ordered, protonix 40mg, 0.9NS @ 75 cc/hr. Patient remains NPO until tomorrow. Tomorrow advance to Clear liquids. No active bleeding noted. PT/OT Evaluations/Recommendations: Recommendation/Plan OT Recommendation: Home with intermittent assist, Home Health PT, Home Health OT Patient at high risk for: Falls, Readmission, Injury due to balance deficits, Injury at home as patient has not returned to prior level of function OT Frequency: 3-5x/wk Treatment/Interventions: ADL/IADL retraining, Balance Training, Bed mobility, Endurance training, Functional activity, Functional mobility training, Functional transfer training, Neuromuscular re-education, Parent/caregiver training and education, Transfer training, Therapeutic exercise, Therapeutic activity, Strengthening OT - Next Appointment: 06/28/22 OT Evaluation Complete: Yes (06/14/22 3954) Potential D/C Needs: Potential Discharge Needs Home Health: Social work Anticipated discharge level of care: Private residence Pt/Family agrees with Anticipated Level of Care: Yes Patient expects to be discharged to:: Private residence Behavioral Health Services: No (06/12/22 1150) Expected D/C Date: Expected D/C date and D/C planning discussed with Case discussed with care team. Care Management Team will continue to follow progression of care and monitor for further d/c needs. Kiesha Sky RN 06/15/2022 2:38 PM * Alvin Alicia MD - 06/14/2022 10:42 PM CDT GI Progress Note Patient's Name : Julius Rosado Subjective No hematemesis or melena Constitutional: No fatigue, weight loss, malaise and anorexia, Respiratory: NO shortness of breath, dyspnea on exertion and acute cough, Cardiovascular: No palpitations, chest pain, Gastrointestinal: No nausea, vomiting and abdominal pain, Genitourinary: No dysuria, frequency Skin: No rash Objective General appearance: alert, cooperative, no distress Head and neck. No JVD, No enlarged lymph nodes or thyromegaly Lungs: breath sounds normal and symmetric; no rales or wheezes Heart: regular rhythm, normal S1 and S2, without murmurs, gallops or rubs Abdomen: soft without mass, non-tender, with normal bowel sounds Extremities: no clubbing, cyanosis or edema Skin. No rash, discoloration Musculoskeletal no joint deformity [employer]GER [employer]. oriented , No tremor or new neurological findings LABS Recent Labs Lab Units 06/14/22 1131 06/14/22 0024 06/13/22 1140 WBC K/cumm 8.5 11.9* 13.0* HEMOGLOBIN g/dL 8.7* 9.1* 7.7* HEMATOCRIT % 26.0* 27.9* 24.3* PLATELETS K/cumm 128* 130* 160 NEUTROS PCT % 73.6 64.3 67.4 LYMPHS PCT % 13.5 21.7 20.3 MONOS PCT % 6.6 7.6 5.7 EOS PCT % 2.5 2.3 2.2 Recent Labs Lab Units 06/14/22 0421 06/13/22 0950 06/12/22 0819 SODIUM mmol/L 141 143 140 POTASSIUM PLASMA mmol/L 3.9 3.7 4.3 CHLORIDE mmol/L 111* 114* 107 CO2 mmol/L 19* 19* 18* ANIONGAP mmol/L 11 10 15 GLUCOSE mg/dL 93 95 149 BUN SERUM mg/dL 35* 54* 75* CREATININE mg/dL 1.60* 1.70* 1.80* CALCIUM mg/dL 7.7* 7.7* 8.4* ALBUMIN g/dL -- -- 3.6 ALK PHOS Units/L -- -- 71 ALT Units/L -- -- 21 AST Units/L -- -- 9* BILIRUBIN TOTAL mg/dL -- -- 0.5 Recent Labs Lab Units 06/12/22 0819 INR 1.0 Lab Results Lab Value Date/Time LIPASE 50 11/03/2019 1322 LIPASE 57 11/20/2016 0031 Lab Results Lab Value Date/Time AMYLASE 116 (H) 11/20/2016 0031 MEDICATIONS FOR CURRENT ENCOUNTER: SCHEDULED MEDICATIONS: Current Facility-Administered Medications: ??? hydrALAZINE (APRESOLINE) injection 10 mg, 10 mg, intravenous, Q6H PRN, Ramon Rosenthal MD ??? ipratropium-albuteroL (DUO-NEB) 0.5-2.5 mg/3 mL nebulizer solution 3 mL, 3 mL, nebulization, BID (RT), Ramon Rosenthal MD, 3 mL at 06/14/22 193 ??? [START ON 06/17/2022] levothyroxine (SYNTHROID) injection 60 mcg, 60 mcg, intravenous, Daily, Ramon Rosenthal MD ??? pantoprazole (PROTONIX) 4 mg/mL injection 40 mg, 40 mg, intravenous, BID, Ramon Rosenthal MD, 40 mg at 06/14/222107 ??? sodium chloride 0.9% infusion, 75 mL/hr, intravenous, Continuous, Ramon Rosenthal MD,Last Rate: 75 mL/hr at 06/14/221752, 75 mL/hr at 06/14/221752 ??? sodium chloride 0.9% infusion, 50 mL/hr, intravenous, Continuous, Carlos A Lee, DO ??? hydrALAZINE sodium chloride 0.9%, 75 mL/hr, Last Rate: 75 mL/hr (06/14/221752) sodium chloride 0.9%, 50 mL/hr Old records reviewed, labs, x rays Assessment And plan Principal Problem: Melena Active Problems: Coronary artery disease History of Crohn's disease Leukocytosis Peripheral vascular disease (CMS/HCC) (HCC) Chronic kidney disease, stage III (moderate) (HCC) ?? Esophageal ulcer with visible vessel. ?? 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 ?? Distal Hiatal Hernia from 35 to 40 cm. ? Stomach: Mild gastritis Above described hiatal hernia Old hematin? Duodenum normal in the bulb 2nd ??Portion ?? EGD Therapy: ?? 1. 2.5 ml of (1:10,000) epineprhine circuferentially placed 2. Hemoclip placed on vessel. Hemostasis achieved. ?? No complications, blood loss or implants ?? Assessment and plan ? NPO until Saturday Clears then from Saturday to Saturday Full liquids then for 10 days. Mechanical soft thereatfer Repeat EGD in 3 months as outpatient with his GI doctor. 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 ?? PPI Hold anticoagulation for 3 weeks if possible. ?? If rebleeds in this time, will need transfer for IRAD with angiography and embolization ?? Care plan discussed with attending. ?? 2. No further hematemesis or melena ?? 3. Acute blood loss anemia ?? Transfuse per primary ? Thank you for allowing me to care for your patient. * Ramon Rosenthal MD - 06/14/2022 11:09 AM CDT Images from the original note were not included. General Medicine Daily Progress SUBJECTIVE The patient was seen examined at bedside, he is hemodynamically stable AO x3. Patient denies more episodes of melena, abdominal pain. Patient denies also hematemesis nausea or vomiting. Patient is a he is feeling better Interval History: Patient is a 28-year-old male with past medical history of celiac disease, CKD stage 3, Crohn's disease, CAD, peripheral vascular disease was admitted in hospital secondary to GI bleed. Patient was presented with melena , GI was consulted they took the patient for upper endoscopy,it reported esophageal ulcer with visible vessel that was treated with epinephrine and hemoclip. Asper recommendation from GI patient has remained NPO until SaturdayJune 16 after that continue 10days of treatment with full liquid diet and upper endoscopy has to be repeated. In the case of a rebleed patient will require to be transferred to a tertiary center for possible angiogram with embolization. Patient hemoglobin yesterday show a dropped from 9.8-7 unsure if this bleeding was secondary to repeat the versus prior bleeding and start doing hemoglobin q12, transfuse 1 unit of PRBCs. Hemoglobin went to 7.7 at this morning hemoglobin went to 9.1. OBJECTIVE Vitals: 24hr Min/Max: Temp Min: 36.6 ??C (97.9 ??F) Max: 36.9 ??C (98.4 ??F) Pulse Min: 61 Max: 73 BP Min: 122/71 Max: 177/72 Resp Min: 16 Max: 18 SpO2 Min: 97 % Max: 100 % Most Recent : Vitals: 06/14/22 0858 BP: Pulse: Resp: Temp: SpO2: 100% I/O last 2 completed shifts: In: 396 [Blood:396] Out: 1400 [Urine:1400] No intake/output data recorded. Physical Exam: Eyes: EOMI, CHIVO, sclare non icteric Neck: supple, no nuchal ridigity, no gross carotid bruits appreciated Pharynx: No gross oral lesion, tongue midline, mucosa moist Lungs CTA Heart: [id number], no significant murmur or gallop Abd: +BS, Non Tender, Non distended, No gross hepatomegaly Lower Ext: No gross edema, pedal artery pulses are palpable bilaterally Neuro: No new deficits appreciated Musculoskeletal: no gross joint erythema, edema, tenderness Skin: No new change Lab/Current Medication Review: Recent Results (from the past 24 hour(s)) Prepare RBC: 1 Units Collection Time: 06/13/22 11:29 AM Result Value Ref Range Units requested 1 Units requested Ready Unit Number [id number] Product code [id number] Blood Expiration Date [id number] Product Blood Type (for scanning) 7300 Product Blood Type BPOS Dispense Status DISPENSED CBC with auto differential Collection Time: 06/13/22 11:40 AM Result Value Ref Range WBC 13.0 (H) 3.8 - 9.9 K/cumm Hgb 7.7 (L) 13.0 - 17.5 g/dL Hct 24.3 (L) 38.9 - 50.3 % Plt 160 150 - 400 K/cumm MPV 11.7 9.1 - 12.3 fL RBC 2.43 (L) 4.30 - 5.80 M/cumm MCV 100.0 (H) 81.3 - 96.4 fL MCH 31.7 27.1 - 33.3 pg MCHC 31.7 (L) 32.3 - 35.7 g/dL RDW CV 14.7 11.1 - 14.9 % RDW SD 53.1 (H) 35.7 - 48.1 fL NRBC abs 0.00 0.00 - 0.01 K/cumm Differential, auto Collection Time: 06/13/22 11:40 AM Result Value Ref Range Neutrophil abs 8.8 (H) 1.7 - 6.5 K/cumm Imm gran abs 0.5 (H) 0.0 - 0.1 K/cumm Lymphocyte abs 2.6 0.8 - 3.3 K/cumm Monocyte abs 0.7 0.2 - 0.8 K/cumm Eosinophil abs 0.3 0.0 - 0.5 K/cumm Basophil abs 0.0 0.0 - 0.1 K/cumm Neutrophil pct 67.4 % Imm gran pct 4.2 % Lymphocyte pct 20.3 % Monocyte pct 5.7 % Eosinophil pct 2.2 % Basophil pct 0.2 % CBC with auto differential Collection Time: 06/14/22 12:24 AM Result Value Ref Range WBC 11.9 (H) 3.8 - 9.9 K/cumm Hgb 9.1 (L) 13.0 - 17.5 g/dL Hct 27.9 (L) 38.9 - 50.3 % Plt 130 (L) 150 - 400 K/cumm MPV 11.3 9.1 - 12.3 fL RBC 2.93 (L) 4.30 - 5.80 M/cumm MCV 95.2 81.3 - 96.4 fL MCH 31.1 27.1 - 33.3 pg MCHC 32.6 32.3 - 35.7 g/dL RDW CV 17.1 (H) 11.1 - 14.9 % RDW SD 58.8 (H) 35.7 - 48.1 fL NRBC abs 0.00 0.00 - 0.01 K/cumm Differential, auto Collection Time: 06/14/22 12:24 AM Result Value Ref Range Neutrophil abs 7.7 (H) 1.7 - 6.5 K/cumm Imm gran abs 0.5 (H) 0.0 - 0.1 K/cumm Lymphocyte abs 2.6 0.8 - 3.3 K/cumm Monocyte abs 0.9 (H) 0.2 - 0.8 K/cumm Eosinophil abs 0.3 0.0 - 0.5 K/cumm Basophil abs 0.0 0.0 - 0.1 K/cumm Neutrophil pct 64.3 % Imm gran pct 3.9 % Lymphocyte pct 21.7 % Monocyte pct 7.6 % Eosinophil pct 2.3 % Basophil pct 0.2 % Basic metabolic panel Collection Time: 06/14/22 4:21 AM Result Value Ref Range Sodium 141 135 - 145 mmol/L Potassium, pl 3.9 3.3 - 4.9 mmol/L Chloride 111 (H) 97 - 110 mmol/L CO2 19 (L) 22 - 32 mmol/L Anion gap 11 2 - 15 mmol/L BUN 35 (H) 8 - 25 mg/dL Creatinine 1.60 (H) 0.80 - 1.30 mg/dL Glucose 93 70 - 199 mg/dL Calcium 7.7 (L) 8.5 - 10.3 mg/dL eGFR Collection Time: 06/14/22 4:21 AM Result Value Ref Range eGFR 45 mL/min/1.73 m2 Current Facility-Administered Medications Medication Dose Route Frequency Provider Last Rate Last Admin ??? hydrALAZINE (APRESOLINE) injection 10 mg 10 mg intravenous Q6H PRN Ramon Rosenthal MD ??? ipratropium-albuteroL (DUO-NEB) 0.5-2.5 mg/3 mL nebulizer solution 3 mL 3 mL nebulization BID (RT) Ramon Rosenthal MD 3 mL at 06/14/22 0858 ??? [START ON 06/17/2022] levothyroxine (SYNTHROID) injection 60 mcg 60 mcg intravenous Daily Ramon Rosenthal MD ??? pantoprazole (PROTONIX) 4 mg/mL injection 40 mg 40 mg intravenous BID Ramon Rosenthal MD 40 mg at 06/14/22 0842 ??? sodium chloride 0.9% infusion 75 mL/hr intravenous Continuous Ramon Rosenthal MD 75 mL/hr at 06/14/22 0503 75 mL/hr at 06/14/22 0503 ??? sodium chloride 0.9% infusion 50 mL/hr intravenous Continuous Carlos A Lee, DO A/P: Principal Problem: Melena Active Problems: Coronary artery disease History of Crohn's disease Leukocytosis Peripheral vascular disease (CMS/HCC) (HCC) Chronic kidney disease, stage III (moderate) (HCC) Resolved Problems: No resolved hospital problems. Upper GI bleed Reports 2 days of loose, black stool Hemodynamically stable Patient hemoglobin yesterday show a dropped from 9.8-7 unsure if this bleeding was secondary to repeat the versus prior bleeding and start doing hemoglobin q12, transfuse 1 unit of PRBCs. Hemoglobin went to 7.7 at this morning hemoglobin went to 9.1. BUN elevated to 75 GI consulted appreciated Upper endoscopy show esophageal ulcer with vessel that was clipped and treated also with epinephrine Keep NPO, IVF @ 75ml/hr Cont Protonix IV BID Hold Plavix, Pletal, ASA Monitor H&H, no acute need for transfusion ?? Leukocytosis Was recently on prednisone taper for MSK complaints No active s/s infection, monitor for now Patient WBC count trended down to 11.9 ?? H/o Crohn's disease H/o bowel resection On mesalamine, will hold pending GI recs ?? CKD stage IIIb H/o BEVERLY requiring HD in 2014 due to extreme volume depletion, hypotension Cr 1.8, appears near baseline IVF as above Cont sodium bicarb Monitor ?? PVD S/p balloon angioplasty in the past No current symptoms Holding ASA, Pletal, Plavix due to acute GIB ?? CAD S/p atherectomy, PCI/stent in 2016 Holding ASA, Plavix due to acute GIB Cont statin, low dose BB ?? Hypothyroidism IV levothyroxine given 60 mcg DVT prophylaxis: Sequentially PT/OT: To see the patient Case discussed with Case Management and Photo Producer Medical complexity/risk: Moderate complexity case it took me 27 minutes review the case, place pertinent orders, discussed current findings with patient examined him Voice recognition software MModal Fluency Direct may have been used dictate and transcribe this document. Ski Patroller variances may occur. Despite proofreading, typographical errors may occur. Ramon Cruz MD 06/14/2022 11:09 AM * Aracelis LoweGuero, OT - 06/14/2022 9:57 AM CDT Occupational Therapy 06/14/22 0940 General Chart Reviewed Yes Session Type Evaluation OT Received On 06/14/22 Safe Environment Arm Band Checked;Call Light within Reach;Notified RN;Patient found in Supine;Overbed Table within Reach;Bed in Lowest Position with Wheels locked Subjective Agreeable to Therapy Additional Pertinent History Admit: melena PMH: mass of nose, acute dehydration, BEVERLY, asthma, acuterenal fail, CAD, Chron's disease, GERD, OA, osteroporosis, anxiey/depression, repeated falls, CKD Occupational Therapy-Patient Goal [place] home at [place] Current Functional Status OT Functional Mobility supine to sit EOB with SBA. sit to stand from EOB with cga, amb to sink (~10') with w/w cga. stood x 5 min at sink cga. amb to bed cga. sit to supine SBA OT Self Care Ub dress SBA, LB dress min A, toileting min A; ADL assessment based upon task simulation, PLOF, cognitive status, B UE & LE ROM and strength, functional mobility and safety awareness. OT Cognition A&O x 4 OT Communication WNL Precautions Precautions Bed/Chair Alarm;Fall risk Precaution Comments telemetry Home Living Additional Comments Pt states he lives alone in a [facility] level homew [facility] basement (where the laundry is)with 2 AUDREY. pt amb with w/w. is indep with ADLs and IADLs, driving, meds, grocery s hopping. pt states he has a tub shower with no DME. pt states 4 falls Prior Function Fall within the last 6 months Yes Fall within the last 6 months comment 4 Pain Assessment Pain Assessment No/denies pain Pain Score 0 - No pain Activity Tolerance Endurance Tolerates 10 - 20 min activity with multiple rests Cognition Arousal/Alertness Alert Attention Span Appears intact Memory Appears intact Current communication Appears Intact Orientation Oriented X4 (person, place, time, situation) Following Commands Follows all commands and directions without difficulty Safety Judgment Decreased awareness of need for assistance Awareness of Errors Decreased awareness of errors Insight Decreased awareness of deficits Compliance/Behavior Easy to engage Hand Function Coordination Functional Gross Grasp Functional Reach/Grasp RUE Reach WFL LUE Reach WFL RUE Assessment RUE Assessment WFL LUE Assessment LUE Assessment WFL Assessment Prognosis Good Problem List Decreased endurance;Decreased balance;Decreased functional mobility;Decreased ADL independence;Decreased IADL independence Problem List Comments Patient presents with the above problem areas hindering functional performance. Will benefit from further skilled OT to regain PLOF with daily routine. Barriers to Discharge Current Mobility Status Plan Plan Plan of care initiated;If this is the last note, consider this the discharge summary Recommendation/Plan OT Recommendation Home with intermittent assist;Home Health PT;Home Health OT Patient at high risk for Falls;Readmission;Injury due to balance deficits;Injury at home as patienthas not returned to prior level of function OT Frequency 3-5x/wk Treatment/Interventions ADL/IADL retraining;Balance Training;Bed mobility;Endurance training;Functional activity;Functional mobility training;Functional transfer training;Neuromuscular re-education;Pa rent/caregiver training and education;Transfer training;Therapeutic exercise;Therapeutic activity;Strengthening OT - Next Appointment 06/28/22 OT Evaluation Complete Yes Educated the patient to the role of occupational therapy, plan of care, goals of therapy, rationalefor progressing mobility and home safety. RN notified of session outcome. Patient was left in bed with all needs met and equipment intact. Safety measures include handoff to nurse/tech, bed alarm activated, oriented to call light and placed within reach, personal items within reach, and bed placed in lowest position. Mobility and ADL status posted at bedside and within medical record. RN (Rhina) gave ok for pt to be seen by OT this date. Multi-Disciplinary Problems (from Occupational Therapy) Active Problems Problem: OT [facility] [place] Start Date: 06/14/22 Goal Start Date Expected End Date End Date OT [facility] 6 06/14/22 06/21/22 -- Goal Details: Pt will complete UB and LB dress mod I AE PRN with good safety Goal Start Date Expected End Date End Date OT [facility] 7 06/14/22 06/21/22 -- Goal Details: 2. Pt will complete all aspects toileting including mobility mod I with good safety. Goal Start Date Expected End Date End Date OT [facility] 8 06/14/22 06/21/22 -- Goal Details: 3. Pt will tolerate standing at sink x 5 min with good standing balance to increase indep with adls. Goal Start Date Expected End Date End Date OT [facility] 9 06/14/22 06/21/22 -- Goal Details: 4. Pt will reach from hi/low with good balance to increase indep with home tasks. Goal Start Date Expected End Date End Date OT [facility] - [facility] [place] 10 06/14/22 06/21/22 -- Goal Details: 5. Pt will participate in simulated tub/shower transfer mod I with good safety. * Alvin Alicia MD - 06/13/2022 11:21 PM CDT GI Progress Note Patient's Name : Julius Rosado Subjective No hematemesis or melena Constitutional: No fatigue, weight loss, malaise and anorexia, Respiratory: NO shortness of breath, dyspnea on exertion and acute cough, Cardiovascular: No palpitations, chest pain, Gastrointestinal: No nausea, vomiting and abdominal pain, Genitourinary: No dysuria, frequency Skin: No rash Objective General appearance: alert, cooperative, no distress Head and neck. No JVD, No enlarged lymph nodes or thyromegaly Lungs: breath sounds normal and symmetric; no rales or wheezes Heart: regular rhythm, normal S1 and S2, without murmurs, gallops or rubs Abdomen: soft without mass, non-tender, with normal bowel sounds Extremities: no clubbing, cyanosis or edema Skin. No rash, discoloration Musculoskeletal no joint deformity [employer]GER [employer]. oriented , No tremor or new neurological findings LABS Recent Labs Lab Units 06/13/22 1140 06/13/22 0950 06/12/22 0819 WBC K/cumm 13.0* 10.2* 21.9* HEMOGLOBIN g/dL 7.7* 7.0* 9.8* HEMATOCRIT % 24.3* 22.6* 30.8* PLATELETS K/cumm 160 147* 215 NEUTROS PCT % 67.4 69.7 81.0 LYMPHS PCT % 20.3 16.3 9.0 MONOS PCT % 5.7 6.8 4.0 EOS PCT % 2.2 1.9 1.0 Recent Labs Lab Units 06/13/22 0950 06/12/22 0819 SODIUM mmol/L 143 140 POTASSIUM PLASMA mmol/L 3.7 4.3 CHLORIDE mmol/L 114* 107 CO2 mmol/L 19* 18* ANIONGAP mmol/L 10 15 GLUCOSE mg/dL 95 149 BUN SERUM mg/dL 54* 75* CREATININE mg/dL 1.70* 1.80* CALCIUM mg/dL 7.7* 8.4* ALBUMIN g/dL -- 3.6 ALK PHOS Units/L -- 71 ALT Units/L -- 21 AST Units/L -- 9* BILIRUBIN TOTAL mg/dL -- 0.5 Recent Labs Lab Units 06/12/22 0819 INR 1.0 Lab Results Lab Value Date/Time LIPASE 50 11/03/2019 1322 LIPASE 57 11/20/2016 0031 Lab Results Lab Value Date/Time AMYLASE 116 (H) 11/20/2016 0031 MEDICATIONS FOR CURRENT ENCOUNTER: SCHEDULED MEDICATIONS: Current Facility-Administered Medications: ??? hydrALAZINE (APRESOLINE) injection 10 mg, 10 mg, intravenous, Q6H PRN, Ramon Rosenthal MD ??? ipratropium-albuteroL (DUO-NEB) 0.5-2.5 mg/3 mL nebulizer solution 3 mL, 3 mL, nebulization, BID (RT), Ramon Rosenthal MD, 3 mL at 06/13/222258 ??? [START ON 06/17/2022] levothyroxine (SYNTHROID) injection 60 mcg, 60 mcg, intravenous, Daily, Ramon Rosenthal MD ??? pantoprazole (PROTONIX) 4 mg/mL injection 40 mg, 40 mg, intravenous, BID, Ramon Rosenthal MD, 40 mg at 06/13/221955 ??? sodium chloride 0.9% infusion, 75 mL/hr, intravenous, Continuous, Ramon Rosenthal MD,Last Rate: 75 mL/hr at 06/13/22457, 75 mL/hr at 06/13/22457 ??? sodium chloride 0.9% infusion, 50 mL/hr, intravenous, Continuous, Carlos A Lee, DO ??? hydrALAZINE sodium chloride 0.9%, 75 mL/hr, Last Rate: 75 mL/hr (06/13/22457) sodium chloride 0.9%, 50 mL/hr Old records reviewed, labs, x rays Assessment And plan Principal Problem: Melena Active Problems: Coronary artery disease History of Crohn's disease Leukocytosis Peripheral vascular disease (CMS/HCC) (HCC) Chronic kidney disease, stage III (moderate) (HCC) Esophageal ulcer with visible vessel. ?? 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 ?? Distal Hiatal Hernia from 35 to 40 cm. ? Stomach: Mild gastritis Above described hiatal hernia Old hematin ?? Duodenum normal in the bulb 2nd Portion ?? EGD Therapy: ?? 1. 2.5 ml of (1:10,000) epineprhine circuferentially placed 2. Hemoclip placed on vessel. Hemostasis achieved. ?? No complications, blood loss or implants ?? Assessment and plan ? NPO until Saturday Clears then from Saturday to Saturday Full liquids then for 10 days. Mechanical soft thereatfer Repeat EGD in 3 months as outpatient with his GI doctor. 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 ?? PPI Hold anticoagulation for 3 weeks if possible. ?? If rebleeds in this time, will need transfer for IRAD with angiography and embolization ?? Care plan discussed with attending. 2. No further hematemesis or melena 3. Acute blood loss anemia Transfuse per primary ? Thank you for allowing me to care for your patient. * Therese Whatley, PT - 06/13/2022 11:21 AM CDT Physical Therapy 06/13/22 1121 General Chart Reviewed Yes Session Type Evaluation PT Missed Visit Reason With other staff/receiving another service (Pt is sitting on bedside and receiving breathing treatment. 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 Will evaluate for PT when time allows.) * Ramon Rosenthal MD - 06/13/2022 11:19 AM CDT Images from the original note were not included. General Medicine Daily Progress SUBJECTIVE The patient was seen examined at bedside, he is hemodynamically stable AO x3. Patient denies more episodes of melena, abdominal pain. Patient denies also hematemesis nausea or vomiting Interval History: Patient is a 28-year-old male with past medical history of celiac disease, CKD stage 3, Crohn's disease, CAD, peripheral vascular disease was admitted in hospital secondary to GI bleed. Patient was presented with melena , GI was consulted they took the patient for upper endoscopy,it reported esophageal ulcer with visible vessel that was treated with epinephrine and hemoclip. Asper recommendation from GI patient has remained NPO until SaturdayJune 16 after that continue 10days of treatment with full liquid diet and upper endoscopy has to be repeated. In the case of a rebleed patient will require to be transferred to a tertiary center for possible angiogram with embolization. Patient hemoglobin today show a drop from 9.8-7 unsure if this bleeding was secondary to repeat theversus prior bleeding and start doing hemoglobin q12, I will transfuse the patient 1 unit of PRBC. OBJECTIVE Vitals: 24hr Min/Max: Temp Min: 36.3 ??C (97.4 ??F) Max: 36.9 ??C (98.5 ??F) Pulse Min: 77 Max: 100 BP Min: 112/68 Max: 155/80 Resp Min: 18 Max: 22 SpO2 Min: 98 % Max: 100 % Most Recent : Vitals: 06/13/22 0803 BP: 123/65 Pulse: 77 Resp: 20 Temp: 36.8 ??C (98.2 ??F) SpO2: 100% I/O last 2 completed shifts: In: 300 [I.V.:300] Out: 177 [Urine:175; Blood:2] No intake/output data recorded. Physical Exam: Eyes: EOMI, CHIVO, sclare non icteric Neck: supple, no nuchal ridigity, no gross carotid bruits appreciated Pharynx: No gross oral lesion, tongue midline, mucosa moist Lungs CTA Heart: [id number], no significant murmur or gallop Abd: +BS, Non Tender, Non distended, No gross hepatomegaly Lower Ext: No gross edema, pedal artery pulses are palpable bilaterally Neuro: No new deficits appreciated Musculoskeletal: no gross joint erythema, edema, tenderness Skin: No new change Lab/Current Medication Review: Recent Results (from the past 24 hour(s)) Urinalysis reflex to microscopic and culture Urine Collection Time: 06/12/22 12:46 PM Specimen: Urine Result Value Ref Range Color, ur Yellow Yellow Clarity, ur Clear Clear Specific gravity, ur 1.010 1.003 - 1.030 pH, urine 5.0 Protein, ur ql Negative Negative Glucose, ur ql Negative Negative Ketones, ur Negative Negative Bilirubin, ur Negative Negative Blood, ur Negative Negative Urobilinogen, ur <2.0 <2.0 mg/dL Nitrite, ur Negative Negative Leukocyte esterase, ur Negative Negative UA reflex comment Reflex conditions for microscopic UA and culture not met. CBC with auto differential Collection Time: 06/13/22 9:50 AM Result Value Ref Range WBC 10.2 (H) 3.8 - 9.9 K/cumm Hgb 7.0 (L) 13.0 - 17.5 g/dL Hct 22.6 (L) 38.9 - 50.3 % Plt 147 (L) 150 - 400 K/cumm MPV 11.8 9.1 - 12.3 fL RBC 2.27 (L) 4.30 - 5.80 M/cumm MCV 99.6 (H) 81.3 - 96.4 fL MCH 30.8 27.1 - 33.3 pg MCHC 31.0 (L) 32.3 - 35.7 g/dL RDW CV 14.8 11.1 - 14.9 % RDW SD 53.7 (H) 35.7 - 48.1 fL NRBC abs 0.00 0.00 - 0.01 K/cumm Basic metabolic panel Collection Time: 06/13/22 9:50 AM Result Value Ref Range Sodium 143 135 - 145 mmol/L Potassium, pl 3.7 3.3 - 4.9 mmol/L Chloride 114 (H) 97 - 110 mmol/L CO2 19 (L) 22 - 32 mmol/L Anion gap 10 2 - 15 mmol/L BUN 54 (H) 8 - 25 mg/dL Creatinine 1.70 (H) 0.80 - 1.30 mg/dL Glucose 95 70 - 199 mg/dL Calcium 7.7 (L) 8.5 - 10.3 mg/dL Differential, auto Collection Time: 06/13/22 9:50 AM Result Value Ref Range Neutrophil abs 7.1 (H) 1.7 - 6.5 K/cumm Imm gran abs 0.5 (H) 0.0 - 0.1 K/cumm Lymphocyte abs 1.7 0.8 - 3.3 K/cumm Monocyte abs 0.7 0.2 - 0.8 K/cumm Eosinophil abs 0.2 0.0 - 0.5 K/cumm Basophil abs 0.0 0.0 - 0.1 K/cumm Neutrophil pct 69.7 % Imm gran pct 5.0 % Lymphocyte pct 16.3 % Monocyte pct 6.8 % Eosinophil pct 1.9 % Basophil pct 0.3 % eGFR Collection Time: 06/13/22 9:50 AM Result Value Ref Range eGFR 42 mL/min/1.73 m2 Current Facility-Administered Medications Medication Dose Route Frequency Provider Last Rate Last Admin ??? hydrALAZINE (APRESOLINE) injection 10 mg 10 mg intravenous Q6H PRN Ramon Rosenthal MD ??? ipratropium-albuteroL (DUO-NEB) 0.5-2.5 mg/3 mL nebulizer solution 3 mL 3 mL nebulization QID (RT) Ramon Rosenthal MD ??? [START ON 06/17/2022] levothyroxine (SYNTHROID) injection 60 mcg 60 mcg intravenous Daily Ramon Rosenthal MD ??? sodium chloride 0.9% infusion 75 mL/hr intravenous Continuous Ramon Rosenthal MD 75 mL/hr at 06/13/22 0458 75 mL/hr at 06/13/22 0458 ??? sodium chloride 0.9% infusion 50 mL/hr intravenous Continuous Carlos A Lee, DO A/P: Principal Problem: Melena Active Problems: Coronary artery disease History of Crohn's disease Leukocytosis Peripheral vascular disease (CMS/HCC) (HCC) Chronic kidney disease, stage III (moderate) (HCC) Resolved Problems: No resolved hospital problems. Upper GI bleed Reports 2 days of loose, black stool Hemodynamically stable Hgb 9.8>7 unsure if the 2nd repeat EEG or the fluids. I will start doing hemoglobins q.12 Transfuse 1 unit of PRBC BUN elevated to 75 GI consulted Upper endoscopy show esophageal ulcer with vessel that was clipped and treated also with epinephrine Keep NPO, IVF @ 75ml/hr Cont Protonix IV BID Hold Plavix, Pletal, ASA Monitor H&H, no acute need for transfusion ?? Leukocytosis Was recently on prednisone taper for MSK complaints No active s/s infection, monitor for now ?? H/o Crohn's disease H/o bowel resection On mesalamine, will hold pending GI recs ?? CKD stage IIIb H/o BEVERLY requiring HD in 2014 due to extreme volume depletion, hypotension Cr 1.8, appears near baseline IVF as above Cont sodium bicarb Monitor ?? PVD S/p balloon angioplasty in the past No current symptoms Holding ASA, Pletal, Plavix due to acute GIB ?? CAD S/p atherectomy, PCI/stent in 2016 Holding ASA, Plavix due to acute GIB Cont statin, low dose BB ?? Hypothyroidism IV levothyroxine given 60 mcg DVT prophylaxis: Sequentially PT/OT: To see the patient Case discussed with Case Management and Photo Producer Medical complexity/risk: Moderate complexity case it took me 26 minutes review the case, place pertinent orders, discussed current findings with patient examined him Voice recognition software MModal Fluency Direct may have been used dictate and transcribe this document. Ski Patroller variances may occur. Despite proofreading, typographical errors may occur. Ramon Cruz MD 06/13/2022 11:19 AM * Kiesha Sky RN - 06/12/2022 11:50 AM CDT DEB Initial Assessment Interview Note Admission Source: Patient to ED from home via EMS Impression: 06/12/2022 Patient presented to the ED from home via EMS for c/o dark stools. Patient stated that he noticed dark tarry stools since yesterday. Patient described it as a thick consistency.Denies any chest pain but stated that he has shortness of breath with minimal movement. Patient denied any abdominal pain or back pain. He stated he had another episode this morning prior to arrival.Patient has a history of a bowel resection secondary to Chron's disease but does not remember the year. Patient transferred to [address] [place] [address] for further management. Plan Includes: Possible EGD today, GI management, IV fluids Primary Source of Transportation: EMS Health Insurance Coverage: [employer] Medicare, for Life Pharmacy: [facility] #[id number] AT [facility], [address] Primary Care Provider: Nickie Negron MD Prior to Admission: Primary Caregiver: Self Support System: Children Support system contact info (name, phone, availablity): Lenard ROSADO BENHOFF,Taliashabbir Durable Medical Equipment: Walker (wheeled) (Has a walker but does not use) Living Arrangements: Alone Type of Residence: Private residence Steps in home? : Yes, Outside of home Number of steps outside:: 2 steps (06/12/22 1150) SDOH: Transportation Needs: Not on file Financial Resource Strain: Not on file Housing Stability: Not on file Social Connections: Not on file Food Insecurity: Not on file Tobacco Use: Medium Risk ??? Smoking Tobacco Use: Former Smoker ??? Smokeless Tobacco Use: Never Used Alcohol Use: Not At Risk ??? Frequency of Alcohol Consumption: Never ??? Average Number of Drinks: Patient does not drink ??? Frequency of Binge Drinking: Never Potential discharge needs include: CM will continue to monitor for any further D/C needs Home Health: Social work (06/12/22 1150) Dialysis: no Behavioral Health Services: Behavioral Health Services: No (06/12/22 1150) Patient expects to be Discharged to: Private residence, (06/12/22 1300) Additional Information: none Patient's Identified Problem/Goal: GI bleed - Black stools. Goal: Stabilize GI status and vital signs. Return home. Problem: Ensure acute medical needs are met and that patient has a safe discharge plan. Goal: Secure a discharge plan that patient/family are agreeable with and ensure patient has continuum of care. Case management will follow for discharge planning and send referrals as needed. Goals include: To assure continuity of care, To maximize coping skills, To assure patient is in a safe environment and To assure access to community resources. Plan includes: 1. Collaboration with patient, MD, direct care nurse, Photo Producer, Nurse Coordinator and other members of the health care team to assure needed interventions completed. 2. Return patient to optimal level of self-care post discharge. 3. Rn Call Center will follow for Discharge Planning - interventions as needed 4. Anticipated level of care at discharge 5. Planned Discharge Disposition Kiesha Sky RN documented in this encounter H&P Notes * Simran Parra, COMMUNITY RECREATION COORDINATOR - 06/12/2022 9:59 AM CDT Images from the original note were not included. History and Physical Date of Service: 06/12/2022 Primary Care Physician: Nickie Negron MD [phone] CHIEF COMPLAINT: Patient is a 71 y.o. male with a PMHx significant for Crohn's disease s/p bowel resection, celiac sprue, CKD stage IIIb, CAD, PVD . Presents to the ED with a chief complaint of melena. HPI: Patient presents from home with c/o melena. Started having episodes of loose, black stool 2 days ago. Having approximately 5 episodes per day. Denies abdominal pain but states it feels queasy. No nausea/vomiting, fever, chills, chest pain or shortness of breath. Recently on prednisone taper for MSK complaints but denies NSAID use. H/o GIB in the past. Unsure when last EGD/CSY. Does not routinely follow GI. Workup in ER notable for CO2 18, BUN/Cr 75/1.8, WBC 21.9, Hgb 9.8. Noted mildy tachycardia to low 100s, h/o same. BP stable. Given Protonix bolus and 1L IVF. GI consulted and planning forscope today. We have been asked to admit. Past Medical History: Diagnosis Date ??? Celiac sprue ??? Chronic kidney disease, stage III (moderate) (HCC) ??? Crohn's colitis (CMS/HCC) (HCC) ??? DJD (degenerative joint disease) ??? Hypokalemia ??? Hypomagnesemia ??? Hypophosphatemia Past Surgical History: Procedure Laterality Date ??? ATHERECTOMY Left 05/04/2015 popliteal ??? COLONOSCOPY W/ BIOPSIES 04/13/2016 ??? NECK SURGERY 10/22/2011 Neck fracture (Not in a hospital admission) Allergies Allergen Reactions ??? Gluten ??? Lactose Stomach upset Social History Tobacco Use ??? Smoking status: Former Smoker ??? Smokeless tobacco: Never Used Substance and Sexual Activity ??? Drug use: Not Currently ??? Sexual activity: None Alcohol Use: Not At Risk ??? Frequency of Alcohol Consumption: Never ??? Average Number of Drinks: Not on file ??? Frequency of Binge Drinking: Not on file Family History Problem Relation Age of Onset ??? Cerebral aneurysm Father Family history of cerebral aneurysm - (Added by TW Conv) ??? Hypertension Other Review of Systems: Review of Systems Constitutional: Negative. HENT: Negative. Eyes: Negative. Respiratory: Negative. Cardiovascular: Negative. Gastrointestinal: Positive for blood in stool and diarrhea. Endocrine: Negative. Genitourinary: Negative. Musculoskeletal: Positive for arthralgias, back pain and gait problem. Skin: Negative. Allergic/Immunologic: Negative. Hematological: Negative. Psychiatric/Behavioral: Negative. OBJECTIVE: Vitals: Arrival Vitals [06/12/22 0810] Temp 36.4 ??C (97.5 ??F) Pulse 103 Resp 23 BP 120/84 SpO2 100 % Temp src Oral Heart Rate Source Patient Position BP Location FiO2 (%) Most Recent : Vitals: 06/12/22 0810 BP: 120/84 Pulse: 103 Resp: 23 Temp: 36.4 ??C (97.5 ??F) TempSrc: Oral SpO2: 100% Weight: 65.8 kg (145 lb) No intake/output data recorded. No intake/output data recorded. Physical Exam: Physical Exam Vitals reviewed. Constitutional: General: He is not in acute distress. Appearance: He is ill-appearing. He is not toxic-appearing. Comments: Chronically ill appearing HENT: Head: Normocephalic and atraumatic. Eyes: Extraocular Movements: Extraocular movements intact. Pupils: Pupils are equal, round, and reactive to light. Cardiovascular: Rate and Rhythm: Regular rhythm. Tachycardia present. Heart sounds: Normal heart sounds. Pulmonary: Effort: Pulmonary effort is normal. No respiratory distress. Breath sounds: Normal breath sounds. Abdominal: General: Abdomen is flat. A surgical scar is present. Bowel sounds are normal. There is no distension. Palpations: Abdomen is soft. Tenderness: There is no abdominal tenderness. Skin: General: Skin is warm. Capillary Refill: Capillary refill takes less than 2 seconds. Coloration: Skin is pale. Comments: Scattered ecchymosis Neurological: General: No focal deficit present. Mental Status: He is alert and oriented to person, place, and time. Cranial Nerves: No cranial nerve deficit. Motor: No weakness. Lab/Radiology/Diagnostic Review: Recent Results (from the past 24 hour(s)) CBC with auto differential Collection Time: 06/12/22 8:19 AM Result Value Ref Range WBC 21.9 (H) 3.8 - 9.9 K/cumm Hgb 9.8 (L) 13.0 - 17.5 g/dL Hct 30.8 (L) 38.9 - 50.3 % Plt 215 150 - 400 K/cumm MPV 11.7 9.1 - 12.3 fL RBC 3.06 (L) 4.30 - 5.80 M/cumm MCV 100.7 (H) 81.3 - 96.4 fL MCH 32.0 27.1 - 33.3 pg MCHC 31.8 (L) 32.3 - 35.7 g/dL RDW CV 14.0 11.1 - 14.9 % RDW SD 51.4 (H) 35.7 - 48.1 fL NRBC abs 0.00 0.00 - 0.01 K/cumm Comprehensive metabolic panel Collection Time: 06/12/22 8:19 AM Result Value Ref Range Sodium 140 135 - 145 mmol/L Potassium, pl 4.3 3.3 - 4.9 mmol/L Chloride 107 97 - 110 mmol/L CO2 18 (L) 22 - 32 mmol/L Anion gap 15 2 - 15 mmol/L BUN 75 (H) 8 - 25 mg/dL Creatinine 1.80 (H) 0.80 - 1.30 mg/dL Glucose 149 70 - 199 mg/dL Calcium 8.4 (L) 8.5 - 10.3 mg/dL Bilirubin, total 0.5 0.1 - 1.2 mg/dL Protein, pl 5.6 (L) 6.5 - 8.5 g/dL Albumin 3.6 3.5 - 5.0 g/dL Alk phos 71 40 - 130 Units/L ALT 21 7 - 55 Units/L AST 9 (L) 10 - 50 Units/L Protime-INR Collection Time: 06/12/22 8:19 AM Result Value Ref Range PT 13.3 12.0 - 14.6 sec INR 1.0 0.9 - 1.2 ABO/Rh Collection Time: 06/12/22 8:19 AM Result Value Ref Range ABO/Rh B Positive Antibody screen Collection Time: 06/12/22 8:19 AM Result Value Ref Range Afshan, indirect, Gel Interpretation Negative ABSC eGFR Collection Time: 06/12/22 8:19 AM Result Value Ref Range eGFR 39 mL/min/1.73 m2 Manual Differential Collection Time: 06/12/22 8:19 AM Result Value Ref Range Differential Manual Cells Counted 100 Neutrophil abs 17.7 (H) 1.7 - 6.5 K/cumm Imm gran abs 1.1 (H) 0.0 - 0.1 K/cumm Lymphocyte abs 2.0 0.8 - 3.3 K/cumm Monocyte abs 0.9 (H) 0.2 - 0.8 K/cumm Eosinophil abs 0.2 0.0 - 0.5 K/cumm Neutrophil pct 81.0 % Lymphocyte pct 9.0 % Monocyte pct 4.0 % Eosinophil pct 1.0 % Neutrophilic metamyelocytes 5.0 % RBC morphology Present (A) Macrocytes 3-7/HPF (A) Platelet estimate Automated Count Confirmed ABO / Rh Confirmation Testing Collection Time: 06/12/22 8:45 AM Result Value Ref Range ABO/Rh Confirmation B Positive COVID-19 Coronavirus RNA Nasopharyngeal Collection Time: 06/12/22 8:54 AM Specimen: Nasopharyngeal Result Value Ref Range COVID-19 RNA Negative Negative No results found. ASSESSMENT/PLAN: Principal Problem: Melena Active Problems: Coronary artery disease History of Crohn's disease Leukocytosis Peripheral vascular disease (CMS/HCC) (HCC) Chronic kidney disease, stage III (moderate) ([facility]) Resolved Problems: No resolved hospital problems. Melena, suspect upper GIB Reports 2 days of loose, black stool Hemodynamically stable Hgb 9.8, last 12.6 in 10/2019 BUN elevated to 75 GI consulted, plans for scope today Keep NPO, IVF @ 75ml/hr Cont Protonix IV BID Hold Plavix, Pletal, ASA Monitor H&H, no acute need for transfusion Leukocytosis Was recently on prednisone taper for MSK complaints No active s/s infection, monitor for now H/o Crohn's disease H/o bowel resection On mesalamine, will hold pending GI recs CKD stage IIIb H/o BEVERLY requiring HD in 2015 due to extreme volume depletion, hypotension Cr 1.8, appears near baseline IVF as above Cont sodium bicarb Monitor PVD S/p balloon angioplasty in the past No current symptoms Holding ASA, Pletal, Plavix due to acute GIB CAD S/p atherectomy, PCI/stent in 2016 Holding ASA, Plavix due to acute GIB Cont statin, low dose BB ESTIMATED LENGTH OF STAY: >2 MN DVT prophylaxis: SCDs PT/OT: consulted, pt lives alone and reports difficulty getting around My total encounter time on 06/12/2022 was 30 minutes which was spent in the activities documented inthe note. This includes time spent prior to the visit and after the visit in direct care of the patient. This time does not include time spent in any separately reportable services. Simran Parra NP 06/12/2022 10:30 AM Cosigned by Ramon Rosenthal MD at 06/12/2022 3:10 PM CDT Associated attestation - Ramon Rosenthal MD - 06/12/2022 3:10 PM CDT Images from the original note were not included. I have interviewed and examined the patient independent of the nurse practitioner. I agree with thenote by by Simran Parra NP . The patient's case was reviewed in detail, and the assessment and plan was devised in collaboration with myself. The patient is a Julius Rosado a 71 y.o. male presenting with a chief complaint of melena, patient has history of Crohn disease as per patient he was sent presented with melena for the past 72 hours, patient denies bright red blood per rectum, hematemesis nausea or vomiting. Patient hemoglobin dropped from 12.6-9.8 (12.6 was in 2019). Patient was also found to have leukocytosis which at this point diabetes chronic septic workup showed UA neck which was negative and chest x-ray showed no acute finding. She was consulted patient was scheduled for upper endoscopy Chief Complaint Patient presents with Abdominal Pain Black or Bloody Stool Vitals: 06/12/22 1105 06/12/22 1206 06/12/22 1431 BP: 140/86 128/76 155/80 Pulse: 99 92 100 Resp: 23 19 18 Temp: 36.6 ??C (97.9 ??F) 36.4 ??C (97.5 ??F) SpO2: 100% 100% 100% Exam: General appearance No acute distress, alert and cooperative Lungs clear to auscultation bilaterally Heart regular rate and rhythm, S1, S2 normal, no murmur, click, rub or gallop Abdomen soft, non-tender. Bowel sounds normal. No masses, No organomegaly Extremities extremities normal, atraumatic, no cyanosis or edema I have independently reviewed the results of tests and imaging performed including: Hematology Lab History Some values may be hidden. Unless noted otherwise, only the newest values recorded on each date aredisplayed. Labs - Hematology Latest Ref Range 06/12/22 WBC 3.8 - 9.9 K/cumm 21.9 (A) Total Hb, POC 13.0 - 17.5 g/dL 9.8 (A) Hct 38.9 - 50.3 % 30.8 (A) Plt 150 - 400 K/cumm 215 Neutrophil abs 1.7 - 6.5 K/cumm 17.7 (A) Lymphocytes, abs 0.8 - 3.3 K/cumm 2.0 (A) Abnormal value Chem/LFT Lab History Some values may be hidden. Unless noted otherwise, only the newest values recorded on each date aredisplayed. Labs-Chem/LFT Latest Ref Range 06/12/22 Sodium 135 - 145 mmol/L 140 Creatinine 0.80 - 1.30 mg/dL 1.80 (A) Bilirubin, total 0.1 - 1.2 mg/dL 0.5 AST 10 - 50 Units/L 9 (A) ALT 7 - 55 Units/L 21 CrCl- Actual Body Weight (Cockcroft-Gault) 34 (A) Abnormal value Assessment & Plan Principal Problem: Melena Active Problems: Coronary artery disease History of Crohn's disease Leukocytosis Peripheral vascular disease (CMS/HCC) (HCC) Chronic kidney disease, stage III (moderate) (HCC) Resolved Problems: No resolved hospital problems. Melena, suspect upper GIB Reports 2 days of loose, black stool Hemodynamically stable Hgb 9.8, last 12.6 in 10/2019 BUN elevated to 75 GI consulted, plans for scope today Keep NPO, IVF @ 75ml/hr Cont Protonix IV BID Hold Plavix, Pletal, ASA Monitor H&H, no acute need for transfusion Leukocytosis Was recently on prednisone taper for MSK complaints No active s/s infection, monitor for now UA was clear Chest x-ray showed no acute finding H/o Crohn's disease H/o bowel resection On mesalamine, will hold pending GI recs MDM high complexity took me 35 minutes review the case, place pertinent/admitted orders, give counseling to the patient and examined him Ramon Cruz MD 3:07 PM 06/12/2022 [facility] Hospitalist Group documented in this encounter Consult Notes * Alvin Alicia MD - 06/12/2022 4:00 PM CDT GI Consultation Patient's Primary Care Physician: Nickie Negron MD Name: Julius Rosado Age: 71 y.o. Sex: male Reason for Consult: Melena HPI: 71 year old man presents with melena. He has some lightheadedness and came in with acute blood loss anemia. He has heartburn. Of note he has longstanding Crohn's and is S/P partial bowel resection in past. Currently bowels have been regulated on mesalamine He is stable on outpatient regimen and will follow up with his GI as outpatient for this. He denies abdominal pain. He does take Plavix and Pletal Past Medical History: Diagnosis Date ??? Celiac sprue ??? Chronic kidney disease, stage III (moderate) (HCC) ??? Crohn's colitis (CMS/HCC) (HCC) ??? DJD (degenerative joint disease) ??? Hypokalemia ??? Hypomagnesemia ??? Hypophosphatemia Past Surgical History: Procedure Laterality Date ??? ATHERECTOMY Left 05/04/2015 popliteal ??? COLONOSCOPY W/ BIOPSIES 04/13/2016 ??? NECK SURGERY 10/22/2011 Neck fracture LABS Recent Labs Lab Units 06/12/22 0819 WBC K/cumm 21.9* HEMOGLOBIN g/dL 9.8* HEMATOCRIT % 30.8* PLATELETS K/cumm 215 NEUTROS PCT % 81.0 LYMPHS PCT % 9.0 MONOS PCT % 4.0 EOS PCT % 1.0 Recent Labs Lab Units 06/12/22 0819 SODIUM mmol/L 140 POTASSIUM PLASMA mmol/L 4.3 CHLORIDE mmol/L 107 CO2 mmol/L 18* ANIONGAP mmol/L 15 GLUCOSE mg/dL 149 BUN SERUM mg/dL 75* CREATININE mg/dL 1.80* CALCIUM mg/dL 8.4* ALBUMIN g/dL 3.6 ALK PHOS Units/L 71 ALT Units/L 21 AST Units/L 9* BILIRUBIN TOTAL mg/dL 0.5 Recent Labs Lab Units 06/12/22 0819 INR 1.0 Lab Results Lab Value Date/Time LIPASE 50 11/03/2019 1322 LIPASE 57 11/20/2016 0031 Lab Results Lab Value Date/Time AMYLASE 116 (H) 11/20/2016 0031 Medications Prior to Admission Medication Sig Dispense Refill Last Dose ??? Asacol HD 800 mg EC tablet Take 800 mg by mouth 2 (two) times a day 06/11/2022 at Unknown time ??? aspirin 81 mg enteric coated tablet Take 81 mg by mouth daily 06/11/2022 at Unknown time ??? buPROPion XL (WELLBUTRIN XL) 150 mg 24 hr tablet Take 1 tablet by mouth daily 06/11/2022 at Unknown time ??? carvediloL (COREG) 3.125 mg tablet Take 3.125 mg by mouth 2 (two) times a day with meals 06/11/2022 at Unknown time ??? cholecalciferol (VITAMIN D-3) 5,000 unit tablet Take 5,000 Units by mouth daily 06/11/2022 at Unknown time ??? cilostazol (PLETAL) 50 mg tablet Take 50 mg by mouth 2 (two) times a day 06/11/2022 at Unknown time ??? clopidogrel (PLAVIX) 75 mg tablet Take 75 mg by mouth daily 06/11/2022 at Unknown time ??? cyanocobalamin, vitamin B-12, 5,000 mcg tablet, sublingual Place 5,000 mcg under the tongue daily 06/11/2022 at Unknown time ??? folic acid (FOLVITE) 1 mg tablet Take 1 mg by mouth daily 06/11/2022 at Unknown time ??? levothyroxine (SYNTHROID) 125 mcg tablet Take 125 mcg by mouth small animal caretaker before breakfast 06/11/2022 at Unknown time ??? pravastatin (PRAVACHOL) 10 mg tablet Take 10 mg by mouth nightly 06/11/2022 at Unknown time ??? sodium bicarbonate 650 mg tablet Take 2 tablets (1,300 mg total) by mouth 3 (three) times a [id number] tablet 3 06/11/2022 at Unknown time ??? vit C,S-Wq-niweq-lutein-zeaxan (PreserVision AREDS-2) 250-90-40-1 mg capsule Take 1 capsule by mouth every 12 hours 06/11/2022 at Unknown time ??? acetaminophen (TYLENOL) 500 mg tablet Take 500 mg by mouth every 8 (eight) hours as needed Unknown at Unknown time ??? albuterol HFA (PROVENTIL HFA,VENTOLIN HFA,PROAIR HFA) 90 mcg/actuation inhaler Inhale 2 puffs every 8 (eight) hours as needed Unknown at Unknown time ??? cholestyramine (QUESTRAN) 4 gram powder Take 4 g by mouth nightly as needed Unknown at Unknown time ??? diclofenac sodium (VOLTAREN) 1 % gel Apply 4 g topically 4 (four) times a day as needed Unknownat Unknown time ??? fluticasone propionate (FLONASE) 50 mcg/actuation nasal spray Administer 1 spray into each nostril daily as needed Unknown at Unknown time ??? VIAGRA 50 mg tablet Take 50 mg by mouth as needed Unknown at Unknown time MEDICATIONS FOR CURRENT ENCOUNTER: SCHEDULED MEDICATIONS: Current Facility-Administered Medications: ??? albuterol 2.5 mg /3 mL (0.083 %) nebulizer solution 2.5 mg, 2.5 mg, nebulization, Once PRN, Carlos A Lee, DO ??? diphenhydrAMINE (BENADRYL) injection 12.5 mg, 12.5 mg, intravenous, Q15 Min PRN, Meierotto, Carlos A Moody, DO ??? EPINEPHrine syringe (ADRENALIN) 0.1 mg/mL 1 mg, 1 mg, intravenous, Once, Alvin Alicia MD ??? fentaNYL (SUBLIMAZE) preservative free injection 25 mcg, 25 mcg, intravenous, Once PRN, Meierotto, Carlos A Moody, DO ??? fentaNYL (SUBLIMAZE) preservative free injection 50 mcg, 50 mcg, intravenous, Once PRN, Meierotto, Carlos A Moody, DO ??? hydrALAZINE (APRESOLINE) injection 5 mg, 5 mg, intravenous, Q15 Min PRN, Meierotto, Carlos A Moody, DO ??? labetaloL (NORMODYNE,TRANDATE) injection 5 mg, 5 mg, intravenous, Q10 Min PRN, Roniotto, Carlos A Moody, DO ??? metoclopramide (REGLAN) injection 10 mg, 10 mg, intravenous, Once PRN, RoniottoLaronCarlos A Moody, DO ??? naloxone (NARCAN) 0.4 mg/mL injection 0.04-0.4 mg, 0.04-0.4 mg, intravenous, Once PRN, Roniotto, Carlos A Moody, DO ??? ondansetron (ZOFRAN) injection 4 mg, 4 mg, intravenous, Once PRN, Roniotto, Carlos A Moody, DO ??? sodium chloride 0.9% infusion, 75 mL/hr, intravenous, Continuous, Simran Parra, COMMUNITY RECREATION COORDINATOR, New Bag at 06/12/22 1438 ??? sodium chloride 0.9% infusion, 50 mL/hr, intravenous, Continuous, Laron Leeneth Moody, DO ??? albuterol ??? diphenhydrAMINE ??? fentaNYL ??? fentaNYL ??? hydrALAZINE ??? labetalol ??? metoclopramide ??? naloxone ??? ondansetron sodium chloride 0.9%, 75 mL/hr sodium chloride 0.9%, 50 mL/hr Family History Problem Relation Age of Onset ??? Cerebral aneurysm Father Family history of cerebral aneurysm - (Added by TW Conv) ??? Hypertension Other Social History Tobacco Use ??? Smoking status: Former Smoker ??? Smokeless tobacco: Never Used Substance and Sexual Activity ??? Drug use: Not Currently ??? Sexual activity: None Alcohol Use: Not At Risk ??? Frequency of Alcohol Consumption: Never ??? Average Number of Drinks: Patient does not drink ??? Frequency of Binge Drinking: Never Allergies Allergen Reactions ??? Gluten ??? Lactose Stomach upset Review of Systems CONSTITUTIONAL: Negative for any fever, weight loss or weight gain. HEENT: The patient has no visual problems. No sore throat. No sinus problems. CARDIOVASCULAR: no chest pain, no paroxysmal nocturnal dyspnea. PULMONARY: Denies any wheeze, shortness of breath. Has no history of TB. Has never been told that he had asthma. GASTROINTESTINAL: per HPI GENITOURINARY: Denies any difficulty urinating or blood in the urine.. NEUROLOGIC: Denies any history of CVA, mental status changes or visual changes. Has not had any seizures or paresthesias. ENDOCRINE: Denies any diabetes or thyroid disease. SKIN: Denies any skin lesions, or rash HEMATOLOGIC:: No bleeding disorders or easy bruising MUSCULOSKELETAL: No back pain. has occasional arthritis PSYCHIATRIC: Denies any psychiatric illness. Exam Vitals: 06/12/22 1537 06/12/22 1542 06/12/22 1549 06/12/22 1556 BP: 117/74 132/65 129/80 147/84 BP Location: Patient Position: Pulse: 87 85 88 93 Resp: Temp: TempSrc: SpO2: 100% 98% 100% 100% Weight: Height: Objective General appearance: alert, cooperative, no distress Eyes: PEERLA, no icterus HEENT: oral mucosa is moist. No ulcers Neck: supple, no jvd Skin: no rash or lesions Lungs: breath sounds normal and symmetric; no rales or wheezes Heart: regular rhythm, normal S1 and S2, without murmurs, gallops or rubs Abdomen: soft without mass, non-tender and non distended, with normal bowel sounds Back: no asymmetry or tenderness : No CVA tenderness Extremities: no clubbing, cyanosis or edema Neurological: No focal deficits. Speech is fluent. XR Chest 1 Vw Portable [[id number]] Collected: 06/12/22 1121 Order Status: Completed Updated: 06/12/221123 Narrative: ? EXAM DESCRIPTION: ?? XR CHEST 1 VIEW ?? REASON FOR STUDY: ?? c/o of melena, r/o free air or cardiopulmonary processes ?? Onset weakness this morning, bloody bowel movements ? TECHNIQUE: ?? One ??radiographic view of the chest acquired. ?? COMPARISON: ?? Chest radiograph November 03, 2019 ?? FINDINGS: LUNGS/PLEURA: ??No pleural effusion, airspace consolidation, or pneumothorax. HEART/MEDIASTINUM: ??Cardiomediastinal silhouette is unremarkable. HARDWARE/LINES/TUBES: ??None. BONES: ??No acute findings. OTHER: ??No free intraperitoneal air on this semi upright portable radiograph. ?? IMPRESSION: ?? No acute abnormality. ?THIS IS AN ELECTRONICALLY VERIFIED FINAL REPORT 06/12/2022 11:22 AM - Electronically signed by ??Cee Almonte D.O. January Suzy Escalona AC D: ??06/12/2022 11:22 AM T: Report ID: [id number] Reading Location: ??[id number] Assessment and plan Principal Problem: Melena Active Problems: Coronary artery disease History of Crohn's disease Leukocytosis Peripheral vascular disease (CMS/HCC) (HCC) Chronic kidney disease, stage III (moderate) (HCC) 1. Melena NPO EGD PPI Hold anticoagulation 2. Crohn's S/P partial bowel resection in past. Currently bowels have been regulated on mesalamine Stable on outpatient regimen Mesalamine He will follow up with his GI as outpatient 3. Acute blood loss anemia. Transfuse per primary as needed. Alvin Alicia MD documented in this encounter Nursing Notes * Rachel Frank RN - 06/18/2022 1:22 PM CDT Pt was Discharged today from [address] [place] [address]. Patient acknowledged the discharge information and education with no further questions. Pt's intravenous access line was removed with catheter intact, site showed no redness, swelling, or other signs of bleeding/infection. Pt voiced no concerns of discomfort. Pt was discharged to home with all personal belongings accounted for. Pt was transported by wheelchair . documented in this encounter ED Notes * Honey Evans RN - 06/12/2022 8:07 AM CDT Pt to ED from home via EMS c/o black stools x2 days, and abd pain. Feels queasy. Denies vomiting.Some SOB on exertion, lightheadedness with ambulation. Hx bowel resection, Crohn's, HTN and early renal failure. * Alejandro Avila MD - 06/12/2022 7:59 AM CDT HPI No chief complaint on file. HPI Mr. Rosado is a 71 y/o male with a PMH of Chrohn's disease CKD, carotid artery stenosis, CAD and extensive hx as below who presents to the ED for dark stools. Pt states that he noticed dark tarry stools since yesterday. Pt describes it as a thick consistency. Pt denies any chest pain but states that he has shortness of breath with minimal movement. Pt denies any abdominal pain or back pain. Pt states he had another episode this morning prior to arrival. Pt states that he has a remote hx of bowel resections 2/2 to Chron's disease but does not remember the year. Patient History: Patient Active Problem List Diagnosis Date Noted ??? Bilateral carotid artery stenosis 08/23/2021 ??? Encounter for long-term (current) use of insulin (CMS/HCC) ([facility]) 07/12/2021 ??? Occlusion of left carotid artery 02/22/2021 ??? Carotid artery stenosis, unilateral 02/05/2021 ??? Benign prostatic hyperplasia with urinary obstruction 01/04/2021 ??? Acute dehydration 05/05/2020 ??? Acute kidney injury (CMS/HCC) (HCC) 05/05/2020 ??? Body mass index (BMI) 19.9 or less, adult 05/05/2020 ??? Chronic obstructive pulmonary disease with bronchospasm (CMS/HCC) (HCC) 05/05/2020 ??? Acute renal failure superimposed on chronic kidney disease (CMS/HCC) (HCC) 05/05/2020 ??? Coffee ground emesis 05/05/2020 ??? Diarrhea due to cryptosporidium ([facility]) ([facility]) 05/05/2020 ??? Fall involving ice skates 05/05/2020 ??? Family history of stroke 05/05/2020 ??? Gastroenteritis 05/05/2020 ??? Gastroesophageal reflux disease with esophagitis 05/05/2020 ??? Gastrointestinal hemorrhage 05/05/2020 ??? History of Crohn's disease 05/05/2020 ??? Hyperleukocytosis 05/05/2020 ??? Hypotension due to blood loss 05/05/2020 ??? Repeated falls 05/05/2020 ??? Systemic inflammatory response syndrome (SIRS) ([facility]) ([facility]) 05/05/2020 ??? Traumatic hematoma of hand 05/05/2020 ??? Inflammation of colonic mucosa 05/05/2020 ??? Age-related macular degeneration 04/18/2020 ??? Mucoid diarrhea 04/18/2020 ??? Macrocytosis 01/19/2020 ??? Kidney stone 11/03/2019 ??? Vitamin B12 deficiency (non anemic) 05/19/2019 ??? Body mass index (BMI) of 20 to 24 02/17/2019 ??? Hyperuricemia 11/19/2018 ??? Asthma 08/16/2017 ??? History of colonic polyps 08/16/2017 ??? Mixed anxiety and depressive disorder 08/16/2017 ??? Vitamin D deficiency 08/16/2017 ??? Hypomagnesemia 12/28/2016 ??? Hypophosphatemia 12/28/2016 ??? Claudication of left lower extremity ([facility]) ([facility]) 06/21/2016 ??? History of acute renal failure 03/19/2016 ??? Hypokalemia due to loss of potassium 03/19/2016 ??? Coronary artery disease 02/27/2016 ??? Crohn's disease without complication ([facility]) ([facility]) 02/27/2016 ??? Ex-smoker 02/27/2016 ??? Hyperlipidemia 02/27/2016 ??? Moderate essential hypertension 02/27/2016 ??? Osteoarthritis 02/27/2016 ??? Osteoporosis 02/27/2016 ??? Peripheral vascular disease (CMS/HCC) ([facility]) 02/27/2016 ??? Primary hypothyroidism 02/27/2016 ??? Mass of nose 05/16/2015 Past Medical History: Diagnosis Date ??? Celiac sprue ??? Chronic kidney disease, stage III (moderate) (HCC) ??? Crohn's colitis (CMS/HCC) (HCC) ??? DJD (degenerative joint disease) ??? Hypokalemia ??? Hypomagnesemia ??? Hypophosphatemia Past Surgical History: Procedure Laterality Date ??? ATHERECTOMY Left 05/04/2015 popliteal ??? COLONOSCOPY W/ BIOPSIES 04/13/2016 ??? NECK SURGERY 10/22/2011 Neck fracture Family History Problem Relation Age of Onset ??? Cerebral aneurysm Father Family history of cerebral aneurysm - (Added by HARLAN Zuluaga) ??? Hypertension Other Social History Tobacco Use ??? Smoking status: Former Smoker ??? Smokeless tobacco: Never Used Substance and Sexual Activity ??? Drug use: Not Currently ??? Sexual activity: Not on file Alcohol Use: Not At Risk ??? Frequency of Alcohol Consumption: Never ??? Average Number of Drinks: Not on file ??? Frequency of Binge Drinking: Not on file Alcohol Use: Not At Risk ??? Frequency of Alcohol Consumption: Never ??? Average Number of Drinks: Not on file ??? Frequency of Binge Drinking: Not on file Social History Social History Narrative ??? Not on file Review of Systems Review of Systems Constitutional: Negative for chills and fever. HENT: Negative for ear pain and sore throat. Eyes: Negative for pain and visual disturbance. Respiratory: Negative for cough and shortness of breath. Cardiovascular: Negative for chest pain and palpitations. Gastrointestinal: Positive for blood in stool. Negative for abdominal pain and vomiting. Genitourinary: Negative for dysuria and hematuria. Musculoskeletal: Negative for arthralgias and back pain. Skin: Negative for color change and rash. Neurological: Negative for seizures and syncope. All other systems reviewed and are negative. Physical Exam ED Triage Vitals Temp Pulse Resp BP SpO2 -- -- -- -- -- Temp src Heart Rate Source Patient Position BP Location FiO2 (%) -- -- -- -- -- Height Height Method Weight Weight Method -- -- -- -- Physical Exam Vitals and nursing note reviewed. Constitutional: Appearance: He is well-developed. HENT: Head: Normocephalic and atraumatic. Eyes: Conjunctiva/sclera: Conjunctivae normal. Cardiovascular: Rate and Rhythm: Regular rhythm. Tachycardia present. Heart sounds: Normal heart sounds. No murmur heard. Pulmonary: Effort: Pulmonary effort is normal. No respiratory distress. Breath sounds: Normal breath sounds. Abdominal: Palpations: Abdomen is soft. Tenderness: There is no abdominal tenderness. Musculoskeletal: Cervical back: Neck supple. Skin: General: Skin is warm and dry. Neurological: Mental Status: He is alert and oriented to person, place, and time. MDM MDM Medical Decision Making Clinical problems/dx: Julius Rosado is a 71 y.o. male who presents with blood in stools. ED Course -Patient seen and evaluated, available studies reviewed -Prior available records reviewed, triage notes reviewed. ED Course as of 06/12/22902 Time: 06/12 833 Comment: Pt's Hgb IS 9.8, which has dropped almost 3 grams. Baseline two years ago was 2.6 By: Alejandro Avila MD Time: 06/12 833 Comment: Pt SBP is normal however slightly tachycardic By: Alejandro Avila MD Time: 06/12 834 Comment: Paging GI By: Alejandro Avila MD Time: 06/12 846 Comment: Spoke with Dr. Alicia who states to kepe the pt NPO and will do a EGD this afternoon By: Alejandro Avila MD Time: 06/12 846 Comment: Pt's leukocytosis is chronic has been dated back to 2019 By: Alejandro Avila MD Time: 06/12 902 Comment: Paging hospitalist By: Alejandro Avila MD Final diagnoses: Abdominal pain Black stools Alejandro Avila MD 06/12/22 1313 documented in this encounter Miscellaneous Notes * Plan of Care - Rachel Frank RN - 06/18/2022 10:45 AM CDT Goals: safety Summary: pat is alert and oriented. All fall precautions maintains. Pt is getting DC today.no pain complain noted.BM was early this morning npt seen by staff. Problem: Facility Isolation Psychosocial Wellbeing Description: Resident at risk for psychosocial wellbeing concern related to medical and visitation restrictions secondary to COVID-19 Goal: Resident will not show a decline in psychosocial wellbeing or experience adverse effects through next review Description: 1. Educate resident, family, resident representatives, staff and visitors of COVID-19 signs and symptoms and precautions 2. Provide emotional support and allow resident to express feelings, fears, and concerns 3. Observe for psychosocial and mental status changes, document and update social work lecturer and MD as needed 4. Provide in room activities of choice if indicated 5. Provide alternative methods of communication with family/visitors 6. Assure resident, family, and resident representatives facility is taking precautions to keep them safe 7. Update resident, family, and resident representatives as needed Outcome: Progressing Problem: COVID-19 Prevention and Monitoring Description: Resident requires monitoring and prevention as they relate to COVID-19 Goal: Resident will show no signs or symptoms of COVID-19 Description: 1. Monitor frequently for potential symptoms including fever and respiratory symptoms 2. Educate resident, family, resident representatives, staff and visitors of COVID-19 signs and symptoms and precautions 3. Remind residents to report if they feel feverish or have symptoms of respiratory infection 4. Reinforce no visitor policy and non-essential health care personnel policy, except for certain compassionate care situations 5. When visitors are necessary and meet exception to no visitor policy, limit to a specified room, encourage social distancing with no handshakes, physical contact, and remaining 6 feet apart 6. Update resident, family, and resident representatives as needed Outcome: Progressing Problem: Health Behavior: Goal: Understanding of discharge needs will improve Outcome: Progressing Problem: Lack of Knowledge: Goal: Ability to state ways to decrease the risk of falls will improve Outcome: Progressing Problem: Safety: Goal: Will remain free from falls Outcome: Progressing Goal: Will remain free from injury from falls Outcome: Progressing Goal: Will remain free from falls and injury in home environment Outcome: Progressing Problem: Respiratory distress related to problem list condition Goal: Resident will be free of signs and symptoms of respiratory distress aeb lungs clear to ausc bilateral, resp even and nonlabored Description: INTERVENTIONS: 1. Observe for and document signs and symptoms respiratory distress: shortness of breath, dyspnea, cyanosis, labored respirations, congestion, cough, adventitious lung sounds, and report to provider 2. Auscultate lungs as needed and report abnormals to provider 3. Obtain oxygen saturation as needed 4. Oxygen at 2 LPM per nasal canula as needed 5. Observe for and document signs and symptoms of congestive heart failure: pulmonary congestion, edema, change in rate and character of heart rate, and report to provider 6. Nurse will administer medication as ordered by provider 7. Droplet isolation per order 8. Elevate head of bed for respiratory ease 9. Encourage coughing and deep breathing to facilitate deep respirations and removal of secretions 10. Encourage resident to participate in ADLs and activities 11. Obtain chest x-ray as ordered and report results to provider 12. Obtain sputum culture as ordered and report results to provider Outcome: Progressing Problem: Activity: Goal: Mobility will improve Outcome: Progressing Problem: Lack of Knowledge: Goal: Understanding of ways to prevent future skin breakdown will improve Outcome: Progressing Goal: Ability to identify appropriate dietary choices will improve Outcome: Progressing Problem: Nutritional: Goal: Dietary intake will improve Outcome: Progressing Goal: Ability to maintain a balanced intake and output will improve Outcome: Progressing Problem: Skin Integrity: Goal: Risk for impaired skin integrity will decrease Outcome: Progressing Goal: Ability to demonstrate warm and dry skin will improve Outcome: Progressing Goal: Circulation will improve to fullest extent possible Outcome: Progressing * Plan of Care - Tameka Silva RN - 06/17/2022 7:56 PM CDT Problem: Facility Isolation Psychosocial Wellbeing Description: Resident at risk for psychosocial wellbeing concern related to medical and visitation restrictions secondary to COVID-19 Goal: Resident will not show a decline in psychosocial wellbeing or experience adverse effects through next review Description: 1. Educate resident, family, resident representatives, staff and visitors of COVID-19 signs and symptoms and precautions 2. Provide emotional support and allow resident to express feelings, fears, and concerns 3. Observe for psychosocial and mental status changes, document and update social work lecturer and MD as needed 4. Provide in room activities of choice if indicated 5. Provide alternative methods of communication with family/visitors 6. Assure resident, family, and resident representatives facility is taking precautions to keep them safe 7. Update resident, family, and resident representatives as needed Outcome: Progressing Problem: COVID-19 Prevention and Monitoring Description: Resident requires monitoring and prevention as they relate to COVID-19 Goal: Resident will show no signs or symptoms of COVID-19 Description: 1. Monitor frequently for potential symptoms including fever and respiratory symptoms 2. Educate resident, family, resident representatives, staff and visitors of COVID-19 signs and symptoms and precautions 3. Remind residents to report if they feel feverish or have symptoms of respiratory infection 4. Reinforce no visitor policy and non-essential health care personnel policy, except for certain compassionate care situations 5. When visitors are necessary and meet exception to no visitor policy, limit to a specified room, encourage social distancing with no handshakes, physical contact, and remaining 6 feet apart 6. Update resident, family, and resident representatives as needed Outcome: Progressing Problem: Health Behavior: Goal: Understanding of discharge needs will improve Outcome: Progressing Problem: Lack of Knowledge: Goal: Ability to state ways to decrease the risk of falls will improve Outcome: Progressing Problem: Safety: Goal: Will remain free from falls Outcome: Progressing Goal: Will remain free from injury from falls Outcome: Progressing Goal: Will remain free from falls and injury in home environment Outcome: Progressing Problem: Respiratory distress related to problem list condition Goal: Resident will be free of signs and symptoms of respiratory distress aeb lungs clear to ausc bilateral, resp even and nonlabored Description: INTERVENTIONS: 1. Observe for and document signs and symptoms respiratory distress: shortness of breath, dyspnea, cyanosis, labored respirations, congestion, cough, adventitious lung sounds, and report to provider 2. Auscultate lungs as needed and report abnormals to provider 3. Obtain oxygen saturation as needed 4. Oxygen at 2 LPM per nasal canula as needed 5. Observe for and document signs and symptoms of congestive heart failure: pulmonary congestion, edema, change in rate and character of heart rate, and report to provider 6. Nurse will administer medication as ordered by provider 7. Droplet isolation per order 8. Elevate head of bed for respiratory ease 9. Encourage coughing and deep breathing to facilitate deep respirations and removal of secretions 10. Encourage resident to participate in ADLs and activities 11. Obtain chest x-ray as ordered and report results to provider 12. Obtain sputum culture as ordered and report results to provider Outcome: Progressing Problem: Activity: Goal: Mobility will improve Outcome: Progressing Problem: Lack of Knowledge: Goal: Understanding of ways to prevent future skin breakdown will improve Outcome: Progressing Goal: Ability to identify appropriate dietary choices will improve Outcome: Progressing Problem: Nutritional: Goal: Dietary intake will improve Outcome: Progressing Problem: Nutritional: Goal: Ability to maintain a balanced intake and output will improve Outcome: Progressing Problem: Skin Integrity: Goal: Risk for impaired skin integrity will decrease Outcome: Progressing Goal: Ability to demonstrate warm and dry skin will improve Outcome: Progressing Goal: Circulation will improve to fullest extent possible Outcome: Progressing Goals: Summary: * Plan of Care - Ceci Pope RN - 06/17/2022 7:56 AM CDT Goals: Summary: This shift: --Wound care: protective foam/mepilex on coccyx --Tolerating Diet: Yes -- Adequate urine output: Yes --BM this shift: Yes --Activity: Up w/walker --Pain control: patient denies pain for this RN --Free From Falls: Yes --Shift Events: Patient currently on clear liquid diet until Saturday, when he can advance to full liquids for an additional 10 days, then mechanical soft, and f/u with GI 3 months. * Plan of Care - Nadine Prasad RN - 06/17/2022 3:45 AM CDT Problem: Facility Isolation Psychosocial Wellbeing Description: Resident at risk for psychosocial wellbeing concern related to medical and visitation restrictions secondary to COVID-19 Goal: Resident will not show a decline in psychosocial wellbeing or experience adverse effects through next review Description: 1. Educate resident, family, resident representatives, staff and visitors of COVID-19 signs and symptoms and precautions 2. Provide emotional support and allow resident to express feelings, fears, and concerns 3. Observe for psychosocial and mental status changes, document and update social work lecturer and MD as needed 4. Provide in room activities of choice if indicated 5. Provide alternative methods of communication with family/visitors 6. Assure resident, family, and resident representatives facility is taking precautions to keep them safe 7. Update resident, family, and resident representatives as needed Outcome: Progressing Problem: COVID-19 Prevention and Monitoring Description: Resident requires monitoring and prevention as they relate to COVID-19 Goal: Resident will show no signs or symptoms of COVID-19 Description: 1. Monitor frequently for potential symptoms including fever and respiratory symptoms 2. Educate resident, family, resident representatives, staff and visitors of COVID-19 signs and symptoms and precautions 3. Remind residents to report if they feel feverish or have symptoms of respiratory infection 4. Reinforce no visitor policy and non-essential health care personnel policy, except for certain compassionate care situations 5. When visitors are necessary and meet exception to no visitor policy, limit to a specified room, encourage social distancing with no handshakes, physical contact, and remaining 6 feet apart 6. Update resident, family, and resident representatives as needed Outcome: Progressing Problem: Health Behavior: Goal: Understanding of discharge needs will improve Outcome: Progressing Problem: Lack of Knowledge: Goal: Ability to state ways to decrease the risk of falls will improve Outcome: Progressing Problem: Safety: Goal: Will remain free from falls Outcome: Progressing Goal: Will remain free from injury from falls Outcome: Progressing Goal: Will remain free from falls and injury in home environment Outcome: Progressing Problem: Respiratory distress related to problem list condition Goal: Resident will be free of signs and symptoms of respiratory distress aeb lungs clear to ausc bilateral, resp even and nonlabored Description: INTERVENTIONS: 1. Observe for and document signs and symptoms respiratory distress: shortness of breath, dyspnea, cyanosis, labored respirations, congestion, cough, adventitious lung sounds, and report to provider 2. Auscultate lungs as needed and report abnormals to provider 3. Obtain oxygen saturation as needed 4. Oxygen at 2 LPM per nasal canula as needed 5. Observe for and document signs and symptoms of congestive heart failure: pulmonary congestion, edema, change in rate and character of heart rate, and report to provider 6. Nurse will administer medication as ordered by provider 7. Droplet isolation per order 8. Elevate head of bed for respiratory ease 9. Encourage coughing and deep breathing to facilitate deep respirations and removal of secretions 10. Encourage resident to participate in ADLs and activities 11. Obtain chest x-ray as ordered and report results to provider 12. Obtain sputum culture as ordered and report results to provider Outcome: Progressing Goals: Summary: Resting at intervals. Denies pain or discomfort. * Plan of Care - Stevan Gilliam RN - 06/16/2022 10:48 AM CDT Problem: Facility Isolation Psychosocial Wellbeing Description: Resident at risk for psychosocial wellbeing concern related to medical and visitation restrictions secondary to COVID-19 Goal: Resident will not show a decline in psychosocial wellbeing or experience adverse effects through next review Description: 1. Educate resident, family, resident representatives, staff and visitors of COVID-19 signs and symptoms and precautions 2. Provide emotional support and allow resident to express feelings, fears, and concerns 3. Observe for psychosocial and mental status changes, document and update social work lecturer and MD as needed 4. Provide in room activities of choice if indicated 5. Provide alternative methods of communication with family/visitors 6. Assure resident, family, and resident representatives facility is taking precautions to keep them safe 7. Update resident, family, and resident representatives as needed Outcome: Progressing Problem: COVID-19 Prevention and Monitoring Description: Resident requires monitoring and prevention as they relate to COVID-19 Goal: Resident will show no signs or symptoms of COVID-19 Description: 1. Monitor frequently for potential symptoms including fever and respiratory symptoms 2. Educate resident, family, resident representatives, staff and visitors of COVID-19 signs and symptoms and precautions 3. Remind residents to report if they feel feverish or have symptoms of respiratory infection 4. Reinforce no visitor policy and non-essential health care personnel policy, except for certain compassionate care situations 5. When visitors are necessary and meet exception to no visitor policy, limit to a specified room, encourage social distancing with no handshakes, physical contact, and remaining 6 feet apart 6. Update resident, family, and resident representatives as needed Outcome: Progressing Problem: Health Behavior: Goal: Understanding of discharge needs will improve Outcome: Progressing Problem: Lack of Knowledge: Goal: Ability to state ways to decrease the risk of falls will improve Outcome: Progressing Problem: Safety: Goal: Will remain free from falls Outcome: Progressing Goal: Will remain free from injury from falls Outcome: Progressing Goal: Will remain free from falls and injury in home environment Outcome: Progressing Problem: Respiratory distress related to problem list condition Goal: Resident will be free of signs and symptoms of respiratory distress aeb lungs clear to ausc bilateral, resp even and nonlabored Description: INTERVENTIONS: 1. Observe for and document signs and symptoms respiratory distress: shortness of breath, dyspnea, cyanosis, labored respirations, congestion, cough, adventitious lung sounds, and report to provider 2. Auscultate lungs as needed and report abnormals to provider 3. Obtain oxygen saturation as needed 4. Oxygen at 2 LPM per nasal canula as needed 5. Observe for and document signs and symptoms of congestive heart failure: pulmonary congestion, edema, change in rate and character of heart rate, and report to provider 6. Nurse will administer medication as ordered by provider 7. Droplet isolation per order 8. Elevate head of bed for respiratory ease 9. Encourage coughing and deep breathing to facilitate deep respirations and removal of secretions 10. Encourage resident to participate in ADLs and activities 11. Obtain chest x-ray as ordered and report results to provider 12. Obtain sputum culture as ordered and report results to provider Outcome: Progressing Goals: Pt will be demonstrate an understanding of appropriate dietary choices following his EGD * Plan of Care - Nadine Prasad RN - 06/16/2022 3:52 AM CDT Problem: Facility Isolation Psychosocial Wellbeing Description: Resident at risk for psychosocial wellbeing concern related to medical and visitation restrictions secondary to COVID-19 Goal: Resident will not show a decline in psychosocial wellbeing or experience adverse effects through next review Description: 1. Educate resident, family, resident representatives, staff and visitors of COVID-19 signs and symptoms and precautions 2. Provide emotional support and allow resident to express feelings, fears, and concerns 3. Observe for psychosocial and mental status changes, document and update social work lecturer and MD as needed 4. Provide in room activities of choice if indicated 5. Provide alternative methods of communication with family/visitors 6. Assure resident, family, and resident representatives facility is taking precautions to keep them safe 7. Update resident, family, and resident representatives as needed Outcome: Progressing Problem: COVID-19 Prevention and Monitoring Description: Resident requires monitoring and prevention as they relate to COVID-19 Goal: Resident will show no signs or symptoms of COVID-19 Description: 1. Monitor frequently for potential symptoms including fever and respiratory symptoms 2. Educate resident, family, resident representatives, staff and visitors of COVID-19 signs and symptoms and precautions 3. Remind residents to report if they feel feverish or have symptoms of respiratory infection 4. Reinforce no visitor policy and non-essential health care personnel policy, except for certain compassionate care situations 5. When visitors are necessary and meet exception to no visitor policy, limit to a specified room, encourage social distancing with no handshakes, physical contact, and remaining 6 feet apart 6. Update resident, family, and resident representatives as needed Outcome: Progressing Problem: Health Behavior: Goal: Understanding of discharge needs will improve Outcome: Progressing Problem: Lack of Knowledge: Goal: Ability to state ways to decrease the risk of falls will improve Outcome: Progressing Problem: Safety: Goal: Will remain free from falls Outcome: Progressing Goal: Will remain free from injury from falls Outcome: Progressing Goal: Will remain free from falls and injury in home environment Outcome: Progressing Problem: Respiratory distress related to problem list condition Goal: Resident will be free of signs and symptoms of respiratory distress aeb lungs clear to ausc bilateral, resp even and nonlabored Description: INTERVENTIONS: 1. Observe for and document signs and symptoms respiratory distress: shortness of breath, dyspnea, cyanosis, labored respirations, congestion, cough, adventitious lung sounds, and report to provider 2. Auscultate lungs as needed and report abnormals to provider 3. Obtain oxygen saturation as needed 4. Oxygen at 2 LPM per nasal canula as needed 5. Observe for and document signs and symptoms of congestive heart failure: pulmonary congestion, edema, change in rate and character of heart rate, and report to provider 6. Nurse will administer medication as ordered by provider 7. Droplet isolation per order 8. Elevate head of bed for respiratory ease 9. Encourage coughing and deep breathing to facilitate deep respirations and removal of secretions 10. Encourage resident to participate in ADLs and activities 11. Obtain chest x-ray as ordered and report results to provider 12. Obtain sputum culture as ordered and report results to provider Outcome: Progressing Goals: Summary: Resting at intervals this shift. 1 assist to the bathroom. 1 loose dark brown bm this shift. Denies pain or discomfort. No nausea noted. * Plan of Care - Ceci Pope RN - 06/15/2022 10:29 AM CDT Goals: Summary: This shift: --Wound care: N/A --Tolerating Diet: NPO -- Adequate urine output: Yes --BM this shift: No --Activity: SBA w/walker --Pain control: Patient denies pain for this RN today --Free From Falls: Yes --Shift Events: Patient is A&Ox4, reported to be SBA w/walker while ambulating, NPO until tomorrow morning when he will advance to clear liquids until Saturday. * Plan of Care - Nadine Prasad RN - 06/15/2022 4:53 AM CDT Problem: Facility Isolation Psychosocial Wellbeing Description: Resident at risk for psychosocial wellbeing concern related to medical and visitation restrictions secondary to COVID-19 Goal: Resident will not show a decline in psychosocial wellbeing or experience adverse effects through next review Description: 1. Educate resident, family, resident representatives, staff and visitors of COVID-19 signs and symptoms and precautions 2. Provide emotional support and allow resident to express feelings, fears, and concerns 3. Observe for psychosocial and mental status changes, document and update social work lecturer and MD as needed 4. Provide in room activities of choice if indicated 5. Provide alternative methods of communication with family/visitors 6. Assure resident, family, and resident representatives facility is taking precautions to keep them safe 7. Update resident, family, and resident representatives as needed Outcome: Progressing Problem: COVID-19 Prevention and Monitoring Description: Resident requires monitoring and prevention as they relate to COVID-19 Goal: Resident will show no signs or symptoms of COVID-19 Description: 1. Monitor frequently for potential symptoms including fever and respiratory symptoms 2. Educate resident, family, resident representatives, staff and visitors of COVID-19 signs and symptoms and precautions 3. Remind residents to report if they feel feverish or have symptoms of respiratory infection 4. Reinforce no visitor policy and non-essential health care personnel policy, except for certain compassionate care situations 5. When visitors are necessary and meet exception to no visitor policy, limit to a specified room, encourage social distancing with no handshakes, physical contact, and remaining 6 feet apart 6. Update resident, family, and resident representatives as needed Outcome: Progressing Problem: Health Behavior: Goal: Understanding of discharge needs will improve Outcome: Progressing Problem: Lack of Knowledge: Goal: Ability to state ways to decrease the risk of falls will improve Outcome: Progressing Problem: Safety: Goal: Will remain free from falls Outcome: Progressing Goal: Will remain free from injury from falls Outcome: Progressing Goal: Will remain free from falls and injury in home environment Outcome: Progressing Problem: Respiratory distress related to problem list condition Goal: Resident will be free of signs and symptoms of respiratory distress aeb lungs clear to ausc bilateral, resp even and nonlabored Description: INTERVENTIONS: 1. Observe for and document signs and symptoms respiratory distress: shortness of breath, dyspnea, cyanosis, labored respirations, congestion, cough, adventitious lung sounds, and report to provider 2. Auscultate lungs as needed and report abnormals to provider 3. Obtain oxygen saturation as needed 4. Oxygen at 2 LPM per nasal canula as needed 5. Observe for and document signs and symptoms of congestive heart failure: pulmonary congestion, edema, change in rate and character of heart rate, and report to provider 6. Nurse will administer medication as ordered by provider 7. Droplet isolation per order 8. Elevate head of bed for respiratory ease 9. Encourage coughing and deep breathing to facilitate deep respirations and removal of secretions 10. Encourage resident to participate in ADLs and activities 11. Obtain chest x-ray as ordered and report results to provider 12. Obtain sputum culture as ordered and report results to provider Outcome: Progressing Goals: Summary: Resting at intervals.Sits up on the side of the bed to use the urinal. Denies pain or discomfort. * Plan of Care - Moody Robertson RRT - 06/14/2022 7:40 PM CDT Problem: Respiratory distress related to problem list condition Goal: Resident will be free of signs and symptoms of respiratory distress aeb lungs clear to ausc bilateral, resp even and nonlabored Description: INTERVENTIONS: 1. Observe for and document signs and symptoms respiratory distress: shortness of breath, dyspnea, cyanosis, labored respirations, congestion, cough, adventitious lung sounds, and report to provider 2. Auscultate lungs as needed and report abnormals to provider 3. Obtain oxygen saturation as needed 4. Oxygen at 2 LPM per nasal canula as needed 5. Observe for and document signs and symptoms of congestive heart failure: pulmonary congestion, edema, change in rate and character of heart rate, and report to provider 6. Nurse will administer medication as ordered by provider 7. Droplet isolation per order 8. Elevate head of bed for respiratory ease 9. Encourage coughing and deep breathing to facilitate deep respirations and removal of secretions 10. Encourage resident to participate in ADLs and activities 11. Obtain chest x-ray as ordered and report results to provider 12. Obtain sputum culture as ordered and report results to provider Outcome: Progressing * Plan of Care - Amada Cantu RN - 06/14/2022 5:45 PM CDT Problem: Facility Isolation Psychosocial Wellbeing Description: Resident at risk for psychosocial wellbeing concern related to medical and visitation restrictions secondary to COVID-19 Goal: Resident will not show a decline in psychosocial wellbeing or experience adverse effects through next review Description: 1. Educate resident, family, resident representatives, staff and visitors of COVID-19 signs and symptoms and precautions 2. Provide emotional support and allow resident to express feelings, fears, and concerns 3. Observe for psychosocial and mental status changes, document and update social work lecturer and MD as needed 4. Provide in room activities of choice if indicated 5. Provide alternative methods of communication with family/visitors 6. Assure resident, family, and resident representatives facility is taking precautions to keep them safe 7. Update resident, family, and resident representatives as needed Outcome: Progressing Problem: COVID-19 Prevention and Monitoring Description: Resident requires monitoring and prevention as they relate to COVID-19 Goal: Resident will show no signs or symptoms of COVID-19 Description: 1. Monitor frequently for potential symptoms including fever and respiratory symptoms 2. Educate resident, family, resident representatives, staff and visitors of COVID-19 signs and symptoms and precautions 3. Remind residents to report if they feel feverish or have symptoms of respiratory infection 4. Reinforce no visitor policy and non-essential health care personnel policy, except for certain compassionate care situations 5. When visitors are necessary and meet exception to no visitor policy, limit to a specified room, encourage social distancing with no handshakes, physical contact, and remaining 6 feet apart 6. Update resident, family, and resident representatives as needed Outcome: Progressing Problem: Health Behavior: Goal: Understanding of discharge needs will improve Outcome: Progressing Problem: Lack of Knowledge: Goal: Ability to state ways to decrease the risk of falls will improve Outcome: Progressing Problem: Safety: Goal: Will remain free from falls Outcome: Progressing Goal: Will remain free from injury from falls Outcome: Progressing Goal: Will remain free from falls and injury in home environment Outcome: Progressing Problem: Respiratory distress related to problem list condition Goal: Resident will be free of signs and symptoms of respiratory distress aeb lungs clear to ausc bilateral, resp even and nonlabored Description: INTERVENTIONS: 1. Observe for and document signs and symptoms respiratory distress: shortness of breath, dyspnea, cyanosis, labored respirations, congestion, cough, adventitious lung sounds, and report to provider 2. Auscultate lungs as needed and report abnormals to provider 3. Obtain oxygen saturation as needed 4. Oxygen at 2 LPM per nasal canula as needed 5. Observe for and document signs and symptoms of congestive heart failure: pulmonary congestion, edema, change in rate and character of heart rate, and report to provider 6. Nurse will administer medication as ordered by provider 7. Droplet isolation per order 8. Elevate head of bed for respiratory ease 9. Encourage coughing and deep breathing to facilitate deep respirations and removal of secretions 10. Encourage resident to participate in ADLs and activities 11. Obtain chest x-ray as ordered and report results to provider 12. Obtain sputum culture as ordered and report results to provider Outcome: Progressing Goals: Summary: * Plan of Care - Amada Cantu RN - 06/13/2022 6:00 PM CDT Problem: Facility Isolation Psychosocial Wellbeing Description: Resident at risk for psychosocial wellbeing concern related to medical and visitation restrictions secondary to COVID-19 Goal: Resident will not show a decline in psychosocial wellbeing or experience adverse effects through next review Description: 1. Educate resident, family, resident representatives, staff and visitors of COVID-19 signs and symptoms and precautions 2. Provide emotional support and allow resident to express feelings, fears, and concerns 3. Observe for psychosocial and mental status changes, document and update social work lecturer and MD as needed 4. Provide in room activities of choice if indicated 5. Provide alternative methods of communication with family/visitors 6. Assure resident, family, and resident representatives facility is taking precautions to keep them safe 7. Update resident, family, and resident representatives as needed Outcome: Progressing Problem: COVID-19 Prevention and Monitoring Description: Resident requires monitoring and prevention as they relate to COVID-19 Goal: Resident will show no signs or symptoms of COVID-19 Description: 1. Monitor frequently for potential symptoms including fever and respiratory symptoms 2. Educate resident, family, resident representatives, staff and visitors of COVID-19 signs and symptoms and precautions 3. Remind residents to report if they feel feverish or have symptoms of respiratory infection 4. Reinforce no visitor policy and non-essential health care personnel policy, except for certain compassionate care situations 5. When visitors are necessary and meet exception to no visitor policy, limit to a specified room, encourage social distancing with no handshakes, physical contact, and remaining 6 feet apart 6. Update resident, family, and resident representatives as needed Outcome: Progressing Problem: Health Behavior: Goal: Understanding of discharge needs will improve Outcome: Progressing Problem: Lack of Knowledge: Goal: Ability to state ways to decrease the risk of falls will improve Outcome: Progressing Problem: Safety: Goal: Will remain free from falls Outcome: Progressing Goal: Will remain free from injury from falls Outcome: Progressing Goal: Will remain free from falls and injury in home environment Outcome: Progressing Goals: Summary: * Plan of Care - Ashlie Almonte RN - 06/13/2022 3:57 AM CDT Problem: Facility Isolation Psychosocial Wellbeing Description: Resident at risk for psychosocial wellbeing concern related to medical and visitation restrictions secondary to COVID-19 Goal: Resident will not show a decline in psychosocial wellbeing or experience adverse effects through next review Description: 1. Educate resident, family, resident representatives, staff and visitors of COVID-19 signs and symptoms and precautions 2. Provide emotional support and allow resident to express feelings, fears, and concerns 3. Observe for psychosocial and mental status changes, document and update social work lecturer and MD as needed 4. Provide in room activities of choice if indicated 5. Provide alternative methods of communication with family/visitors 6. Assure resident, family, and resident representatives facility is taking precautions to keep them safe 7. Update resident, family, and resident representatives as needed Outcome: Progressing Problem: COVID-19 Prevention and Monitoring Description: Resident requires monitoring and prevention as they relate to COVID-19 Goal: Resident will show no signs or symptoms of COVID-19 Description: 1. Monitor frequently for potential symptoms including fever and respiratory symptoms 2. Educate resident, family, resident representatives, staff and visitors of COVID-19 signs and symptoms and precautions 3. Remind residents to report if they feel feverish or have symptoms of respiratory infection 4. Reinforce no visitor policy and non-essential health care personnel policy, except for certain compassionate care situations 5. When visitors are necessary and meet exception to no visitor policy, limit to a specified room, encourage social distancing with no handshakes, physical contact, and remaining 6 feet apart 6. Update resident, family, and resident representatives as needed Outcome: Progressing Problem: Health Behavior: Goal: Understanding of discharge needs will improve Outcome: Progressing Problem: Lack of Knowledge: Goal: Ability to state ways to decrease the risk of falls will improve Outcome: Progressing Problem: Safety: Goal: Will remain free from falls Outcome: Progressing Goal: Will remain free from injury from falls Outcome: Progressing Goal: Will remain free from falls and injury in home environment Outcome: Progressing * Op Note - Alvin Alicia MD - 06/12/2022 4:15 PM CDT .Upper endoscopy with bleeding control Indication Melena Postop diagnosis Post-op Diagnosis * Melena [K92.1] Indication the alternates and the complication of this procedure which include but not limited to bleeding perforation were explained to the patient fully understands the risk and benefits agrees to proceed Sedation per anesthesia With the patient in the left lateral decubitus position, the Olympus GIF H 180 J upper endoscope was used to easily intubate the patient's esophagus and advanced to the 2nd portion of the duodenum. Careful inspection of the mucosa was made upon insertion and withdrawal of the endoscope with retroflexion in the stomach Findings Esophagus: Esophageal ulcer with visible vessel. 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 Distal Hiatal Hernia from 35 to 40 cm. Stomach: Mild gastritis Above described hiatal hernia Old hematin Duodenum normal in the bulb 2nd Portion EGD Therapy: 1. 2.5 ml of (1:10,000) epineprhine circuferentially placed 2. Hemoclip placed on vessel. Hemostasis achieved. No complications, blood loss or implants Assessment and plan NPO until Saturday Clears then from Saturday to Saturday Full liquids then for 10 days. Mechanical soft thereatfer Repeat EGD in 3 months as outpatient with his GI doctor. 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 PPI Hold anticoagulation for 3 weeks if possible. If rebleeds in this time, will need transfer for [facility] with angiography and embolization Care plan discussed with attending. Thank you for allowing me to care for your patient. * Perioperative Nursing Note - Baylee Mariscal RN - 06/12/2022 3:55 PM CDT Report called to Yumiko PEREZ. * Plan of Care - Amada Cantu RN - 06/12/2022 1:39 PM CDT Problem: Facility Isolation Psychosocial Wellbeing Description: Resident at risk for psychosocial wellbeing concern related to medical and visitation restrictions secondary to COVID-19 Goal: Resident will not show a decline in psychosocial wellbeing or experience adverse effects through next review Description: 1. Educate resident, family, resident representatives, staff and visitors of COVID-19 signs and symptoms and precautions 2. Provide emotional support and allow resident to express feelings, fears, and concerns 3. Observe for psychosocial and mental status changes, document and update social work lecturer and MD as needed 4. Provide in room activities of choice if indicated 5. Provide alternative methods of communication with family/visitors 6. Assure resident, family, and resident representatives facility is taking precautions to keep them safe 7. Update resident, family, and resident representatives as needed 06/12/2022 1339 by Amada Cantu RN Outcome: Progressing 06/12/2022 1338 by mAada Cantu RN Outcome: Progressing Problem: COVID-19 Prevention and Monitoring Description: Resident requires monitoring and prevention as they relate to COVID-19 Goal: Resident will show no signs or symptoms of COVID-19 Description: 1. Monitor frequently for potential symptoms including fever and respiratory symptoms 2. Educate resident, family, resident representatives, staff and visitors of COVID-19 signs and symptoms and precautions 3. Remind residents to report if they feel feverish or have symptoms of respiratory infection 4. Reinforce no visitor policy and non-essential health care personnel policy, except for certain compassionate care situations 5. When visitors are necessary and meet exception to no visitor policy, limit to a specified room, encourage social distancing with no handshakes, physical contact, and remaining 6 feet apart 6. Update resident, family, and resident representatives as needed 06/12/2022 1339 by Amada Cantu RN Outcome: Progressing 06/12/2022 1338 by Amada Cantu RN Outcome: Progressing Problem: Health Behavior: Goal: Understanding of discharge needs will improve 06/12/2022 1339 by Amada Cantu RN Outcome: Progressing 06/12/2022 1338 by Amada Cantu RN Outcome: Progressing Problem: Lack of Knowledge: Goal: Ability to state ways to decrease the risk of falls will improve Outcome: Progressing Problem: Safety: Goal: Will remain free from falls Outcome: Progressing Goal: Will remain free from injury from falls Outcome: Progressing Goal: Will remain free from falls and injury in home environment Outcome: Progressing Goals: Summary: documented in this encounter Plan of Treatment Pending Results Name Type Priority Associated Diagnoses Date /Time Crossmatch Lab Timed 06/12/2022 8:1 9 AM CDT Scheduled Orders Name Type Priority Associated Diagnoses Orde r Schedule Crossmatch Lab Timed Once for 1 Occ urrences starting 06/12/2022 until 06/12/2022 documented as of this encounter Procedures Procedure Name Priority Date/Time Associated Diagnosis Comments EGFR Routine 06/18/2022 4:26 AM CDT DIFFERENTIAL AUTO Routine 06/18/2022 4:26 AM CDT CBC WITH AUTO DIFFERENTIAL Routine 06/18 4:26 AM CDT BASIC METABOLIC PANEL Routine 06/18/2022 4:26 AM CDT EGFR Routine 06/17/2022 4:42 AM CDT DIFFERENTIAL AUTO Routine 06/17/2022 4:42 AM CDT CBC WITH AUTO DIFFERENTIAL Routine 06/17 4:42 AM CDT BASIC METABOLIC PANEL Routine 06/17/2022 4:42 AM CDT POCT GLUCOSE DEVICE Routine 06/16/2022 5:11 PM CDT POCT GLUCOSE DEVICE Routine 06/16/2022 12:13 PM CDT POCT GLUCOSE DEVICE Routine 06/16/2022 9:48 AM CDT POCT GLUCOSE DEVICE Routine 06/16/2022 7:51 AM CDT POCT GLUCOSE DEVICE Routine 06/16/2022 7:32 AM CDT POCT GLUCOSE DEVICE Routine 06/16/2022 7:05 AM CDT POCT GLUCOSE DEVICE Routine 06/16/2022 6:54 AM CDT POCT GLUCOSE DEVICE Routine 06/16/2022 6:40 AM CDT EGFR Routine 06/16/2022 4:28 AM CDT DIFFERENTIAL AUTO Routine 06/16/2022 4:28 AM CDT CBC WITH AUTO DIFFERENTIAL Routine 06/16 4:28 AM CDT BASIC METABOLIC PANEL Routine 06/16/2022 4:28 AM CDT DIFFERENTIAL AUTO Timed 06/15/2022 11:13 AM CDT CBC WITH AUTO DIFFERENTIAL Timed 06/15 11:13 AM CDT EGFR Routine 06/15/2022 5:19 AM CDT BASIC METABOLIC PANEL Routine 06/15/2022 5:19 AM CDT DIFFERENTIAL AUTO Timed 06/14/2022 11:47 PM CDT CBC WITH AUTO DIFFERENTIAL Timed 06/14 11:47 PM CDT DIFFERENTIAL AUTO Timed 06/14/2022 11:31 AM CDT CBC WITH AUTO DIFFERENTIAL Timed 06/14 11:31 AM CDT EGFR Routine 06/14/2022 4:21 AM CDT BASIC METABOLIC PANEL Routine 06/14/2022 4:21 AM CDT DIFFERENTIAL AUTO Timed 06/14/2022 12:24 AM CDT CBC WITH AUTO DIFFERENTIAL Timed 06/14 12:24 AM CDT TRANSFUSE RED BLOOD CELLS Timed 2021 2:22 PM CDT DIFFERENTIAL AUTO Timed 06/13/2022 11:40 AM CDT CBC WITH AUTO DIFFERENTIAL Timed 06/13 11:40 AM CDT PREPARE RBC Timed 06/13/2022 11:29 AM CDT EGFR Routine 06/13/2022 9:50 AM CDT DIFFERENTIAL AUTO Routine 06/13/2022 9:50 AM CDT CBC WITH AUTO DIFFERENTIAL Routine 06/13 9:50 AM CDT BASIC METABOLIC PANEL Routine 06/13/2022 9:50 AM CDT ESOPHAGOGASTRODUODENOSCOPY CONTROL BLEED 06/12/2022 2:36 PM CDT Melena URINALYSIS AND REFLEX TO MICROSCOPIC AND CULTURE STAT 06/12/2022 12:46 PM CDT XR CHEST 1 VIEW ED 06/12/2022 10:42 AM CDT COVID-19 CORONAVIRUS RNA Routine 022 8:54 AM CDT B ABO / RH CONFIRMATION TESTING STAT 06/12/2022 8:45 AM CDT EGFR STAT 06/12/2022 8:19 AM CDT CBC WITH AUTO DIFFERENTIAL STAT 06/12 8:19 AM CDT ABO/RH Timed 06/12/2022 8:19 AM CDT MANUAL DIFFERENTIAL STAT 06/12/2022 8:19 AM CDT PROTIME-INR STAT 06/12/2022 8:19 AM CDT CROSSMATCH Timed 06/12/2022 8:19 AM CDT ANTIBODY SCREEN Timed 06/12/2022 8:19 AM CDT HC ANTIBODY SCREEN RBC Timed 8:19 AM CDT COMPREHENSIVE METABOLIC PANEL STAT 8:19 AM CDT ECG 12-LEAD Routine 06/12/2022 8:06 AM CDT documented in this encounter Results * eGFR (06/18/2022 4:26 AM CDT) eGFR 42 mL/min/1. 73 m2 [facility] Comment: Interpretive Data Reference Interval Normal ?>/= [...] Current interpretive data was last reviewed 2021. Blood 06/18/2022 4:26 AM CDT 06/18/2022 4:43 AM CDT us Ramon Borjas MD LAB BLOOD ORDERABLES Final Result [facility] [address] [facility] Department [place] [address] * (ABNORMAL) Differential, auto (06/18/2022 4:26 AM CDT) Neutrophil abs 3.9 1.7 - 6.5 K/cumm [facility] Imm gran abs 0.3(H) 0.0 - 0.1 K/cumm [facility] Lymphocyte abs 1.3 0.8 - 3.3 K/cumm [facility] Monocyte abs 0.7 0.2 - 0.8 K/cumm [facility] Eosinophil abs 0.3 0.0 - 0.5 K/cumm [facility] Basophil abs 0.0 0.0 - 0.1 K/cumm [facility] Neutrophil pct 59.9 % [facility] Comment: Interpretive Data Percent cell count reference ranges are not reported, since discordance with absolute values may lead to misinterpretation of CBC data. Current Interpretive Data was last revised on 2018. Imm gran pct 4.3 % [facility] Comment: Interpretive Data Percent cell count reference ranges are not reported, since discordance with absolute values may lead to misinterpretation of CBC data. Current Interpretive Data was last revised on 2018. Lymphocyte pct 20.1 % [facility] Comment: Interpretive Data Percent cell count reference ranges are not reported, since discordance with absolute values may lead to misinterpretation of CBC data. Current Interpretive Data was last revised on 2018. Monocyte pct 10.4 % [facility] Comment: Interpretive Data Percent cell count reference ranges are not reported, since discordance with absolute values may lead to misinterpretation of CBC data. Current Interpretive Data was last revised on 2018. Eosinophil pct 5.0 % [facility] Comment: Interpretive Data Percent cell count reference ranges are not reported, since discordance with absolute values may lead to misinterpretation of CBC data. Current Interpretive Data was last revised on 2018. Basophil pct 0.3 % [facility] Comment: Interpretive Data Percent cell count reference ranges are not reported, since discordance with absolute values may lead to misinterpretation of CBC data. Current Interpretive Data was last revised on 2018. Blood 06/18/2022 4:26 AM CDT 06/18/2022 4:43 AM CDT us Ramon Borjas MD LAB BLOOD ORDERABLES Final Result [facility] [address] [facility] Department [place] [address] * (ABNORMAL) CBC with auto differential (06/18/2022 4:26 AM CDT) [facility] WBC 6.5 3.8 - 9.9 K/cumm [facility] Hgb 9.5(L) 13.0 - 17.5 g/dL [facility] Hct 28.2(L) 38.9 - 50.3 % [facility] Plt 157 150 - 400 K/cumm [facility] MPV 11.4 9.1 - 12.3 fL [facility] RBC 2.99(L) 4.30 - 5.80 M/cumm [facility] MCV 94.3 81.3 - 96.4 fL [facility] MCH 31.8 27.1 - 33.3 pg [facility] MCHC 33.7 32.3 - 35.7 g/dL [facility] RDW CV 15.5(H) 11.1 - 14.9 % [facility] RDW SD 53.1(H) 35.7 - 48.1 fL [facility] NRBC abs 0.00 0.00 - 0.01 K/cumm [facility] Blood 06/18/2022 4:26 AM CDT 06/18/2022 4:43 AM CDT us Ramon Borjas MD LAB BLOOD ORDERABLES Final Result [facility] [address] [facility] Department [place] [address] * (ABNORMAL) Basic metabolic panel (06/18/2022 4:26 AM CDT) [facility] Sodium 137 135 - 145 mmol/L [facility] Potassium, pl 3.5 3.3 - 4.9 mmol/L [facility] Chloride 108 97 - 110 mmol/L [facility] CO2 20(L) 22 - 32 mmol/L [facility] Anion gap 9 2 - 15 mmol/L [facility] BUN 9 8 - 25 mg/dL [facility] Creatinine 1.70(H) 0.80 - 1.30 mg/dL [facility] Glucose 126 70 - 199 mg/dL [facility] Comment: Interpretive Data Fasting glucose >/= 126 [...] classification and Diagnosis of Diabetes Diabetes Care 2017;40 (Suppl. 1):S11. Current interpretive data was last revised 2017. Calcium 8.2(L) 8.5 - 10.3 mg/dL [facility] TOVAR Blood 06/18/2022 4:26 AM CDT 06/18/2022 4:43 AM CDT us Ramon Borjas MD LAB BLOOD ORDERABLES Final Result Performing Organization Address City/State/[facility] Co de Phone Number GEN[facility]O TOVAR [address] [facility] Department [place] [address] * eGFR (06/17/2022 4:42 AM CDT) eGFR 45 mL/min/1. 73 m2 [facility] TOVAR Comment: Interpretive Data Reference Interval Normal ?>/= [...] of Race in Diagnosing Kidney Disease, JASN 202). The CKD-EPI equation should not be used for patients with unstable renal function and has not been validated in children and those over 70. Current interpretive data was last reviewed 2021. Blood 06/17/2022 4:42 AM CDT 06/17/2022 4:58 AM CDT us Ramon Borjas MD LAB BLOOD ORDERABLES Final Result [facility] [address] [facility] Department [place] [address] * (ABNORMAL) Differential, auto (06/17/2022 4:42 AM CDT) Neutrophil abs 4.5 1.7 - 6.5 K/cumm [facility] Imm gran abs 0.2(H) 0.0 - 0.1 K/cumm [facility] Lymphocyte abs 1.4 0.8 - 3.3 K/cumm [facility] Monocyte abs 0.7 0.2 - 0.8 K/cumm [facility] Eosinophil abs 0.4 0.0 - 0.5 K/cumm [facility] Basophil abs 0.0 0.0 - 0.1 K/cumm [facility] Neutrophil pct 61.8 % [facility] Comment: Interpretive Data Percent cell count reference ranges are not reported, since discordance with absolute values may lead to misinterpretation of CBC data. Current Interpretive Data was last revised on 2018. Imm gran pct 3.3 % [facility] Comment: Interpretive Data Percent cell count reference ranges are not reported, since discordance with absolute values may lead to misinterpretation of CBC data. Current Interpretive Data was last revised on 2018. Lymphocyte pct 19.8 % [facility] Comment: Interpretive Data Percent cell count reference ranges are not reported, since discordance with absolute values may lead to misinterpretation of CBC data. Current Interpretive Data was last revised on 2018. Monocyte pct 9.6 % [facility] Comment: Interpretive Data Percent cell count reference ranges are not reported, since discordance with absolute values may lead to misinterpretation of CBC data. Current Interpretive Data was last revised on 2018. Eosinophil pct 5.1 % [facility] Comment: Interpretive Data Percent cell count reference ranges are not reported, since discordance with absolute values may lead to misinterpretation of CBC data. Current Interpretive Data was last revised on 2018. Basophil pct 0.4 % [facility] Comment: Interpretive Data Percent cell count reference ranges are not reported, since discordance with absolute values may lead to misinterpretation of CBC data. Current Interpretive Data was last revised on 2018. Blood 06/17/2022 4:42 AM CDT 06/17/2022 4:58 AM CDT us Ramon Borjas MD LAB BLOOD ORDERABLES Final Result [place] [id number] [facility] Department [place] [address] * (ABNORMAL) CBC with auto differential (06/17/2022 4:42 AM CDT) WBC 7.3 3.8 - 9.9 K/cumm [facility] Hgb 9.5(L) 13.0 - 17.5 g/dL [facility] Hct 29.0(L) 38.9 - 50.3 % [facility] Plt 144(L) 150 - 400 K/cumm [facility] MPV 11.5 9.1 - 12.3 fL [facility] RBC 3.05(L) 4.30 - 5.80 M/cumm [facility] MCV 95.1 81.3 - 96.4 fL [facility] MCH 31.1 27.1 - 33.3 pg [facility] MCHC 32.8 32.3 - 35.7 g/dL [facility] RDW CV 15.9(H) 11.1 - 14.9 % [facility] RDW SD 54.2(H) 35.7 - 48.1 fL [facility] NRBC abs 0.00 0.00 - 0.01 K/cumm [facility] Blood 06/17/2022 4:42 AM CDT 06/17/2022 4:58 AM CDT us Ramon Borjas MD LAB BLOOD ORDERABLES Final Result Performing Organization Address City/[facility]/ZIP Co de Phone Number [place] [address] * (ABNORMAL) Basic metabolic panel (06/17/2022 4:42 AM CDT) Sodium 136 135 - 145 mmol/L [facility] Potassium, pl 3.5 3.3 - 4.9 mmol/L [facility] Chloride 109 97 - 110 mmol/L [facility] CO2 20(L) 22 - 32 mmol/L [facility] Anion gap 7 2 - 15 mmol/L [facility] BUN 11 8 - 25 mg/dL [facility] Creatinine 1.60(H) 0.80 - 1.30 mg/dL [facility] Glucose 108 70 - 199 mg/dL [facility] Comment: Interpretive Data Fasting glucose >/= 126 [...] classification and Diagnosis of Diabetes Diabetes Care 2017;40 (Suppl. 1):S11. Current interpretive data was last revised 2017. Calcium 8.2(L) 8.5 - 10.3 mg/dL [facility] Blood 06/17/2022 4:42 AM CDT 06/17/2022 4:58 AM CDT Ramon Borjas MD LAB BLOOD ORDERABLES Final Result Performing Organization Address City/[facility]/ZIP Co de Phone Number GENARO [id number] [facility] [employer] [place] [address] * POCT glucose (06/16/2022 5:11 PM CDT) Glucose, POC 108 70 - 199 mg/dL [facility] Glucose comment 1 Use This Result [facility] Glucose comment 2 Will Notify Nurse [facility] TOVAR Blood 06/16/2022 5:11 PM CDT 06/16/2022 5:11 PM CDT Ramon Borjas MD LAB POCT ORDERABLES - DEVICE Final Result Performing Organization Address City/[facility] Co de Phone Number [id number] [employer] [place] [address] * POCT glucose (06/16/2022 12:13 PM CDT) Glucose, POC 101 70 - 199 mg/[facility] 1 Use This Result [facility] Glucose comment 2 Will Notify Nurse [facility] Blood 06/16/2022 12:1 3 PM CDT 06/16/2022 12:13 PM CDT Ramon Borjas MD LAB POCT ORDERABLES - DEVICE Final Result Performing Organization Address [facility] Co de Phone Number [id number] [employer] [place] [address] * POCT glucose (06/16/2022 9:48 AM CDT) Glucose, POC 173 70 - 199 mg/dL [facility] Glucose comment 1 Use This Result [facility] Glucose comment 2 Will Notify Nurse GENARO Blood 06/16/2022 9:48 AM CDT 06/16/2022 9:48 AM CDT Ramon Borjas MD LAB POCT ORDERABLES - DEVICE Final Result Performing Organization Address City/[facility] Co de Phone Number [address] [employer] [place] [address] * POCT glucose (06/16/2022 7:51 AM CDT) Glucose, POC 107 70 - 199 mg/dL [facility] Glucose comment 1 Use This Result [facility] Blood 06/16/2022 7:51 AM CDT 06/16/2022 7:51 AM CDT Ramon Borjas MD LAB POCT ORDERABLES - DEVICE Final Result Performing Organization Address [facility] Co de Phone Number GENARO [address] [address] * POCT glucose (06/16/2022 7:32 AM CDT) Glucose, POC 94 70 - 199 mg/dL [facility] Glucose comment 1 Use This Result [facility] Blood 06/16/2022 7:32 AM CDT 06/16/2022 7:32 AM CDT Ramon Borjas MD LAB POCT ORDERABLES - DEVICE Final Result Performing Organization Address [facility] de Phone Number [address] [employer] [place] [address] * POCT glucose (06/16/2022 7:05 AM CDT) Glucose, POC 78 70 - 199 mg/dL [facility] Glucose comment 1 Use This Result [facility] Glucose comment 2 Will Notify Nurse GENARO Blood 06/16/2022 7:05 AM CDT 06/16/2022 7:05 AM CDT Ramon Borjas MD LAB POCT ORDERABLES - DEVICE Final Result Performing Organization Address [facility] Co de Phone Number [address] [address] * POCT glucose (06/16/2022 6:54 AM CDT) Glucose, POC 70 70 - 199 mg/dL [facility] Glucose comment 1 Use This Result [facility] Glucose comment 2 Will Notify Nurse GENARO Blood 06/16/2022 6:54 AM CDT 06/16/2022 6:54 AM CDT Ramon Borjas MD LAB POCT ORDERABLES - DEVICE Final Result Performing Organization Address City/[facility] Co de Phone Number [facility] [address] [facility] [employer] [place] [address] * (ABNORMAL) POCT glucose (06/16/2022 6:40 AM CDT) Glucose, POC 66(L) 70 - 199 mg/dL [facility] Blood 06/16/2022 6:40 AM CDT 06/16/2022 6:40 AM CDT Ramon Borjas MD LAB POCT ORDERABLES - DEVICE Final Result Performing Organization Address [facility] de Phone Number [place] [id number] [place] [address] * eGFR (06/16/2022 4:28 AM CDT) eGFR 49 mL/min/1. 73 m2 [facility] Comment: Interpretive Data Reference Interval Normal ?>/= [...] Current interpretive data was last reviewed 2021. Blood 06/16/2022 4:28 AM CDT 06/16/2022 4:47 AM CDT Ramon Borjas MD LAB BLOOD ORDERABLES Final Result [facility] [address] [facility] Department [place] [address] * (ABNORMAL) Differential, auto (06/16/2022 4:28 AM CDT) Neutrophil abs 6.6(H) 1.7 - 6.5 K/cumm [facility] Imm gran abs 0.2(H) 0.0 - 0.1 K/cumm [facility] Lymphocyte abs 1.2 0.8 - 3.3 K/cumm [facility] Monocyte abs 0.7 0.2 - 0.8 K/cumm [facility] Eosinophil abs 0.2 0.0 - 0.5 K/cumm [facility] Basophil abs 0.0 0.0 - 0.1 K/cumm [facility] Neutrophil pct 73.6 % [facility] Comment: Interpretive Data Percent cell count reference ranges are not reported, since discordance with absolute values may lead to misinterpretation of CBC data. Current Interpretive Data was last revised on 2018. Imm gran pct 2.7 % [facility] Comment: Interpretive Data Percent cell count reference ranges are not reported, since discordance with absolute values may lead to misinterpretation of CBC data. Current Interpretive Data was last revised on 2018. Lymphocyte pct 13.7 % [facility] Comment: Interpretive Data Percent cell count reference ranges are not reported, since discordance with absolute values may lead to misinterpretation of CBC data. Current Interpretive Data was last revised on 2018. Monocyte pct 7.5 % [facility] Comment: Interpretive Data Percent cell count reference ranges are not reported, since discordance with absolute values may lead to misinterpretation of CBC data. Current Interpretive Data was last revised on 2018. Eosinophil pct 2.1 % [facility] Comment: Interpretive Data Percent cell count reference ranges are not reported, since discordance with absolute values may lead to misinterpretation of CBC data. Current Interpretive Data was last revised on 2018. Basophil pct 0.4 % [facility] Comment: Interpretive Data Percent cell count reference ranges are not reported, since discordance with absolute values may lead to misinterpretation of CBC data. Current Interpretive Data was last revised on 2018. Blood 06/16/2022 4:28 AM CDT 06/16/2022 4:47 AM CDT us Ramon Borjas MD LAB BLOOD ORDERABLES Final Result [place] [id number] [facility] Department [place] [address] * (ABNORMAL) CBC with auto differential (06/16/2022 4:28 AM CDT) WBC 9.0 3.8 - 9.9 K/cumm [facility] Hgb 9.3(L) 13.0 - 17.5 g/dL [facility] Hct 28.8(L) 38.9 - 50.3 % [facility] Plt 140(L) 150 - 400 K/cumm [facility] MPV 11.5 9.1 - 12.3 fL [facility] RBC 2.95(L) 4.30 - 5.80 M/cumm [facility] MCV 97.6(H) 81.3 - 96.4 fL [facility] MCH 31.5 27.1 - 33.3 pg [facility] MCHC 32.3 32.3 - 35.7 g/dL [facility] RDW CV 16.0(H) 11.1 - 14.9 % [facility] RDW SD 56.2(H) 35.7 - 48.1 fL [facility] NRBC abs 0.00 0.00 - 0.01 K/cumm [facility] Blood 06/16/2022 4:28 AM CDT 06/16/2022 4:47 AM CDT Ramon Borjas MD LAB BLOOD ORDERABLES Final Result Performing Organization Address City/[facility]/ZIP Co de Phone Number GENARO [address] [address] * (ABNORMAL) Basic metabolic panel (06/16/2022 4:28 AM CDT) [facility] Sodium 140 135 - 145 mmol/L [facility] Potassium, pl 4.4 3.3 - 4.9 mmol/L [facility] [facility] Chloride 112(H) 97 - 110 mmol/L [facility] CO2 13(L) 22 - 32 mmol/L [facility] Anion gap 15 2 - 15 mmol/L [facility] BUN 17 8 - 25 mg/dL [facility] Creatinine 1.50(H) 0.80 - 1.30 mg/dL [facility] Glucose 64(L) 70 - 199 mg/dL [facility] Comment: Interpretive Data Fasting glucose >/= 126 [...] classification and Diagnosis of Diabetes Diabetes Care 2017;40 (Suppl. 1):S11. Current interpretive data was last revised 2017. Calcium 7.8(L) 8.5 - 10.3 mg/dL [facility] Blood 06/16/2022 4:28 AM CDT 06/16/2022 4:47 AM CDT Ramon Borjas MD LAB BLOOD ORDERABLES Final Result Performing Organization Address [facility] Co de Phone Number GENARO [address] [address] * (ABNORMAL) Differential, auto (06/15/2022 11:13 AM CDT) Neutrophil abs 7.4(H) 1.7 - 6.5 K/cumm [facility] Imm gran abs 0.3(H) 0.0 - 0.1 K/cumm [facility] Lymphocyte abs 1.1 0.8 - 3.3 K/cumm [facility] Monocyte abs 0.5 0.2 - 0.8 K/cumm [facility] Eosinophil abs 0.1 0.0 - 0.5 K/cumm [facility] Basophil abs 0.0 0.0 - 0.1 K/cumm [facility] Neutrophil pct 78.3 % [facility] Comment: Interpretive Data Percent cell count reference ranges are not reported, since discordance with absolute values may lead to misinterpretation of CBC data. Current Interpretive Data was last revised on 2018. Imm gran pct 3.1 % [facility] Comment: Interpretive Data Percent cell count reference ranges are not reported, since discordance with absolute values may lead to misinterpretation of CBC data. Current Interpretive Data was last revised on 2018. Lymphocyte pct 11.7 % [facility] Comment: Interpretive Data Percent cell count reference ranges are not reported, since discordance with absolute values may lead to misinterpretation of CBC data. Current Interpretive Data was last revised on 2018. Monocyte pct 5.4 % [facility] Comment: Interpretive Data Percent cell count reference ranges are not reported, since discordance with absolute values may lead to misinterpretation of CBC data. Current Interpretive Data was last revised on 2018. Eosinophil pct 1.3 % [facility] Comment: Interpretive Data Percent cell count reference ranges are not reported, since discordance with absolute values may lead to misinterpretation of CBC data. Current Interpretive Data was last revised on 2018. Basophil pct 0.2 % [facility] Comment: Interpretive Data Percent cell count reference ranges are not reported, since discordance with absolute values may lead to misinterpretation of CBC data. Current Interpretive Data was last revised on 2018. Blood 06/15/2022 11:1 3 AM CDT 06/15/2022 11:21 AM CDT Ramon Borjas MD LAB BLOOD ORDERABLES Final Result Performing Organization Address [facility] de Phone Number [facility] [address] [facility] [facility] [place], [place] [id number] * (ABNORMAL) CBC with auto differential (06/15/2022 11:13 AM CDT) [facility] WBC 9.4 3.8 - 9.9 K/cumm [facility] Hgb 9.4(L) 13.0 - 17.5 g/dL [facility] Hct 28.5(L) 38.9 - 50.3 % [facility] Plt 138(L) 150 - 400 K/cumm [facility] MPV 11.2 9.1 - 12.3 fL [facility] RBC 2.98(L) 4.30 - 5.80 M/cumm [facility] MCV 95.6 81.3 - 96.4 fL [facility] MCH 31.5 27.1 - 33.3 pg [facility] MCHC 33.0 32.3 - 35.7 g/dL [facility] RDW CV 16.4(H) 11.1 - 14.9 % [facility] RDW SD 56.7(H) 35.7 - 48.1 fL [facility] NRBC abs 0.00 0.00 - 0.01 K/cumm [facility] Blood 06/15/2022 11:1 3 AM CDT 06/15/2022 11:21 AM CDT Ramon Borjas MD LAB BLOOD ORDERABLES Final Result Performing Organization Address [facility] Co de Phone Number [facility] [address] [employer] [place] [address] * eGFR (06/15/2022 5:19 AM CDT) [facility] eGFR 49 mL/min/1. 73 m2 [facility] Comment: Interpretive Data Reference Interval Normal ?>/= [...] Current interpretive data was last reviewed 2021. Blood 06/15/2022 5:19 AM CDT 06/15/2022 5:36 AM CDT us Ramon Borjas MD LAB BLOOD ORDERABLES Final Result [facility] [address] Department [place] [address] * (ABNORMAL) Basic metabolic panel (06/15/2022 5:19 AM CDT) Pathologist [facility] Sodium 141 135 - 145 mmol/L [facility] Potassium, pl 3.9 3.3 - 4.9 mmol/L [facility] Chloride 112(H) 97 - 110 mmol/L [facility] CO2 17(L) 22 - 32 mmol/L [facility] Anion gap 12 2 - 15 mmol/L [facility] BUN 19 8 - 25 mg/dL [facility] Creatinine 1.50(H) 0.80 - 1.30 mg/dL [facility] Glucose 74 70 - 199 mg/dL [facility] Comment: Interpretive Data Fasting glucose >/= 126 [...] classification and Diagnosis of Diabetes Diabetes Care 2017;40 (Suppl. 1):S11. Current interpretive data was last revised 2017. Calcium 7.8(L) 8.5 - 10.3 mg/dL [facility] Blood 06/15/2022 5:19 AM CDT 06/15/2022 5:36 AM CDT us Ramon Borjas MD LAB BLOOD ORDERABLES Final Result [facility] [address] Department [place] [address] * (ABNORMAL) Differential, auto (06/14/2022 11:47 PM CDT) Neutrophil abs 6.1 1.7 - 6.5 K/cumm [facility] Imm gran abs 0.3(H) 0.0 - 0.1 K/cumm [facility] Lymphocyte abs 1.5 0.8 - 3.3 K/cumm [facility] Monocyte abs 0.6 0.2 - 0.8 K/cumm [facility] Eosinophil abs 0.3 0.0 - 0.5 K/cumm [facility] Basophil abs 0.0 0.0 - 0.1 K/cumm [facility] Neutrophil pct 69.8 % [facility] Comment: Interpretive Data Percent cell count reference ranges are not reported, since discordance with absolute values may lead to misinterpretation of CBC data. Current Interpretive Data was last revised on 2018. Imm gran pct 3.3 % [facility] Comment: Interpretive Data Percent cell count reference ranges are not reported, since discordance with absolute values may lead to misinterpretation of CBC data. Current Interpretive Data was last revised on 2018. Lymphocyte pct 16.7 % [facility] Comment: Interpretive Data Percent cell count reference ranges are not reported, since discordance with absolute values may lead to misinterpretation of CBC data. Current Interpretive Data was last revised on 2018. Monocyte pct 6.9 % [facility] Comment: Interpretive Data Percent cell count reference ranges are not reported, since discordance with absolute values may lead to misinterpretation of CBC data. Current Interpretive Data was last revised on 2018. Eosinophil pct 3.1 % [facility] Comment: Interpretive Data Percent cell count reference ranges are not reported, since discordance with absolute values may lead to misinterpretation of CBC data. Current Interpretive Data was last revised on 2018. Basophil pct 0.2 % [facility] Comment: Interpretive Data Percent cell count reference ranges are not reported, since discordance with absolute values may lead to misinterpretation of CBC data. Current Interpretive Data was last revised on 2018. Blood 06/14/2022 11:4 7 PM CDT 06/15/2022 12:26 AM CDT Ramon Borjas MD LAB BLOOD ORDERABLES Final Result [facility] [address] Department [place] [address] * (ABNORMAL) CBC with auto differential (06/14/2022 11:47 PM CDT) WBC 8.7 3.8 - 9.9 K/cumm [facility] Hgb 8.5(L) 13.0 - 17.5 g/dL [facility] Hct 26.5(L) 38.9 - 50.3 % [facility] Plt 134(L) 150 - 400 K/cumm [facility] MPV 11.5 9.1 - 12.3 fL [facility] RBC 2.78(L) 4.30 - 5.80 M/cumm [facility] MCV 95.3 81.3 - 96.4 fL [facility] MCH 30.6 27.1 - 33.3 pg [facility] MCHC 32.1(L) 32.3 - 35.7 g/dL [facility] RDW CV 16.5(H) 11.1 - 14.9 % [facility] RDW SD 57.2(H) 35.7 - 48.1 fL [facility] NRBC abs 0.00 0.00 - 0.01 K/cumm [facility] Blood 06/14/2022 11:4 7 PM CDT 06/15/2022 12:26 AM CDT Ramon Borjas MD LAB BLOOD ORDERABLES Final Result [facility] [address] Department [place] [address] * (ABNORMAL) Differential, auto (06/14/2022 11:31 AM CDT) Neutrophil abs 6.3 1.7 - 6.5 K/cumm [facility] Imm gran abs 0.3(H) 0.0 - 0.1 K/cumm [facility] Lymphocyte abs 1.2 0.8 - 3.3 K/cumm [facility] Monocyte abs 0.6 0.2 - 0.8 K/cumm [facility] Eosinophil abs 0.2 0.0 - 0.5 K/cumm [facility] Basophil abs 0.0 0.0 - 0.1 K/cumm [facility] Neutrophil pct 73.6 % [facility] Comment: Interpretive Data Percent cell count reference ranges are not reported, since discordance with absolute values may lead to misinterpretation of CBC data. Current Interpretive Data was last revised on 2018. Imm gran pct 3.6 % [facility] Comment: Interpretive Data Percent cell count reference ranges are not reported, since discordance with absolute values may lead to misinterpretation of CBC data. Current Interpretive Data was last revised on 2018. Lymphocyte pct 13.5 % [facility] Comment: Interpretive Data Percent cell count reference ranges are not reported, since discordance with absolute values may lead to misinterpretation of CBC data. Current Interpretive Data was last revised on 2018. Monocyte pct 6.6 % [facility] Comment: Interpretive Data Percent cell count reference ranges are not reported, since discordance with absolute values may lead to misinterpretation of CBC data. Current Interpretive Data was last revised on 2018. Eosinophil pct 2.5 % [facility] Comment: Interpretive Data Percent cell count reference ranges are not reported, since discordance with absolute values may lead to misinterpretation of CBC data. Current Interpretive Data was last revised on 2018. Basophil pct 0.2 % [facility] Comment: Interpretive Data Percent cell count reference ranges are not reported, since discordance with absolute values may lead to misinterpretation of CBC data. Current Interpretive Data was last revised on 2018. Blood 06/14/2022 11:3 1 AM CDT 06/14/2022 11:53 AM CDT Ramon Borjas MD LAB BLOOD ORDERABLES Final Result [place] [address] [facility] Department [place] [address] * (ABNORMAL) CBC with auto differential (06/14/2022 11:31 AM CDT) WBC 8.5 3.8 - 9.9 K/cumm [facility] Hgb 8.7(L) 13.0 - 17.5 g/dL [facility] Hct 26.0(L) 38.9 - 50.3 % [facility] Plt 128(L) 150 - 400 K/cumm [facility] MPV 11.4 9.1 - 12.3 fL [facility] RBC 2.76(L) 4.30 - 5.80 M/cumm [facility] MCV 94.2 81.3 - 96.4 fL [facility] MCH 31.5 27.1 - 33.3 pg [facility] MCHC 33.5 32.3 - 35.7 g/dL [facility] RDW CV 16.9(H) 11.1 - 14.9 % [facility] RDW SD 57.0(H) 35.7 - 48.1 fL [facility] NRBC abs 0.00 0.00 - 0.01 K/cumm [facility] Blood 06/14/2022 11:3 1 AM CDT 06/14/2022 11:53 AM CDT Ramon Borjas MD LAB BLOOD ORDERABLES Final Result Performing Organization Address City/[facility]/ZIP Co de Phone Number GENARO [address] [facility] [employer] [place] [address] * eGFR (06/14/2022 4:21 AM CDT) [facility] eGFR 45 mL/min/1. 73 m2 [facility] Comment: Interpretive Data Reference Interval Normal ?>/= [...] of Race in Diagnosing Kidney Disease, JASN 202). The CKD-EPI equation should not be used for patients with unstable renal function and has not been validated in children and those over 70. Current interpretive data was last reviewed 2021. Blood 06/14/2022 4:21 AM CDT 06/14/2022 5:15 AM CDT Ramon Borjas MD LAB BLOOD ORDERABLES Final Result [facility] [address] Department [place] [address] * (ABNORMAL) Basic metabolic panel (06/14/2022 4:21 AM CDT) [facility] Sodium 141 135 - 145 mmol/L [facility] Potassium, pl 3.9 3.3 - 4.9 mmol/L [facility] Chloride 111(H) 97 - 110 mmol/L [facility] CO2 19(L) 22 - 32 mmol/L [facility] Anion gap 11 2 - 15 mmol/L [facility] BUN 35(H) 8 - 25 mg/dL [facility] Creatinine 1.60(H) 0.80 - 1.30 mg/dL [facility] Glucose 93 70 - 199 mg/dL [facility] Comment: Interpretive Data Fasting glucose >/= 126 [...] classification and Diagnosis of Diabetes Diabetes Care 2017;40 (Suppl. 1):S11. Current interpretive data was last revised 2017. Calcium 7.7(L) 8.5 - 10.3 mg/dL [facility] Blood 06/14/2022 4:21 AM CDT 06/14/2022 5:15 AM CDT us Ramon Borjas MD LAB BLOOD ORDERABLES Final Result [facility] [address] Department [place] [address] * (ABNORMAL) Differential, auto (06/14/2022 12:24 AM CDT) [facility] Neutrophil abs 7.7(H) 1.7 - 6.5 K/cumm [facility] Imm gran abs 0.5(H) 0.0 - 0.1 K/cumm [facility] Lymphocyte abs 2.6 0.8 - 3.3 K/cumm [facility] Monocyte abs 0.9(H) 0.2 - 0.8 K/cumm [facility] Eosinophil abs 0.3 0.0 - 0.5 K/cumm [facility] Basophil abs 0.0 0.0 - 0.1 K/cumm [facility] Neutrophil pct 64.3 % [facility] Comment: Interpretive Data Percent cell count reference ranges are not reported, since discordance with absolute values may lead to misinterpretation of CBC data. Current Interpretive Data was last revised on 2018. Imm gran pct 3.9 % [facility] Comment: Interpretive Data Percent cell count reference ranges are not reported, since discordance with absolute values may lead to misinterpretation of CBC data. Current Interpretive Data was last revised on 2018. Lymphocyte pct 21.7 % [facility] Comment: Interpretive Data Percent cell count reference ranges are not reported, since discordance with absolute values may lead to misinterpretation of CBC data. Current Interpretive Data was last revised on 2018. Monocyte pct 7.6 % [facility] Comment: Interpretive Data Percent cell count reference ranges are not reported, since discordance with absolute values may lead to misinterpretation of CBC data. Current Interpretive Data was last revised on 2018. Eosinophil pct 2.3 % [facility] Comment: Interpretive Data Percent cell count reference ranges are not reported, since discordance with absolute values may lead to misinterpretation of CBC data. Current Interpretive Data was last revised on 2018. Basophil pct 0.2 % [facility] Comment: Interpretive Data Percent cell count reference ranges are not reported, since discordance with absolute values may lead to misinterpretation of CBC data. Current Interpretive Data was last revised on 2018. Blood 06/14/2022 12:2 4 AM CDT 06/14/2022 12:51 AM CDT us Ramon Borjas MD LAB BLOOD ORDERABLES Final Result [facility] [address] Department [place] [address] * (ABNORMAL) CBC with auto differential (06/14/2022 12:24 AM CDT) WBC 11.9(H) 3.8 - 9.9 K/cumm [facility] Hgb 9.1(L) 13.0 - 17.5 g/dL [facility] Hct 27.9(L) 38.9 - 50.3 % [facility] Plt 130(L) 150 - 400 K/cumm [facility] MPV 11.3 9.1 - 12.3 fL [facility] RBC 2.93(L) 4.30 - 5.80 M/cumm [facility] MCV 95.2 81.3 - 96.4 fL [facility] MCH 31.1 27.1 - 33.3 pg [facility] MCHC 32.6 32.3 - 35.7 g/dL [facility] RDW CV 17.1(H) 11.1 - 14.9 % [facility] RDW SD 58.8(H) 35.7 - 48.1 fL [facility] NRBC abs 0.00 0.00 - 0.01 K/cumm [facility] Blood 06/14/2022 12:2 4 AM CDT 06/14/2022 12:51 AM CDT Ramon Borjas MD LAB BLOOD ORDERABLES Final Result Performing Organization Address [facility] de Phone Number [address] [employer] [place], [place] [id number] * Transfuse RBC (06/13/2022 5:45 PM CDT) Blood specimen (specimen) Ramon Borjas MD BLOOD TRANSFUSION ORD ERABLES Final Result Performing Organization Address City/[facility] Co de Phone Number [address] [employer] [place] [address] * Transfuse RBC: 1 Units (06/13/2022 5:45 PM CDT) Blood specimen (specimen) Ramon Borjas MD BLOOD TRANSFUSION ORD ERABLES Final Result * (ABNORMAL) Differential, auto (06/13/2022 11:40 AM CDT) Neutrophil abs 8.8(H) 1.7 - 6.5 K/cumm [facility] Imm gran abs 0.5(H) 0.0 - 0.1 K/cumm [facility] Lymphocyte abs 2.6 0.8 - 3.3 K/cumm [facility] Monocyte abs 0.7 0.2 - 0.8 K/cumm [facility] Eosinophil abs 0.3 0.0 - 0.5 K/cumm [facility] Basophil abs 0.0 0.0 - 0.1 K/cumm [facility] Neutrophil pct 67.4 % [facility] Comment: Interpretive Data Percent cell count reference ranges are not reported, since discordance with absolute values may lead to misinterpretation of CBC data. Current Interpretive Data was last revised on 2018. Imm gran pct 4.2 % [facility] Comment: Interpretive Data Percent cell count reference ranges are not reported, since discordance with absolute values may lead to misinterpretation of CBC data. Current Interpretive Data was last revised on 2018. Lymphocyte pct 20.3 % [facility] Comment: Interpretive Data Percent cell count reference ranges are not reported, since discordance with absolute values may lead to misinterpretation of CBC data. Current Interpretive Data was last revised on 2018. Monocyte pct 5.7 % [facility] Comment: Interpretive Data Percent cell count reference ranges are not reported, since discordance with absolute values may lead to misinterpretation of CBC data. Current Interpretive Data was last revised on 2018. Eosinophil pct 2.2 % [facility] Comment: Interpretive Data Percent cell count reference ranges are not reported, since discordance with absolute values may lead to misinterpretation of CBC data. Current Interpretive Data was last revised on 2018. Basophil pct 0.2 % [facility] Comment: Interpretive Data Percent cell count reference ranges are not reported, since discordance with absolute values may lead to misinterpretation of CBC data. Current Interpretive Data was last revised on 2018. Blood 06/13/2022 11:4 0 AM CDT 06/13/2022 11:56 AM CDT us Ramon Borjas MD LAB BLOOD ORDERABLES Final Result [facility] [address] [place] [address] * (ABNORMAL) CBC with auto differential (06/13/2022 11:40 AM CDT) Pathologist [facility] WBC 13.0(H) 3.8 - 9.9 K/cumm [facility] Hgb 7.7(L) 13.0 - 17.5 g/dL [facility] Hct 24.3(L) 38.9 - 50.3 % [facility] Plt 160 150 - 400 K/cumm [facility] MPV 11.7 9.1 - 12.3 fL [facility] RBC 2.43(L) 4.30 - 5.80 M/cumm [facility] MCV 100.0(H) 81.3 - 96.4 fL [facility] MCH 31.7 27.1 - 33.3 pg [facility] MCHC 31.7(L) 32.3 - 35.7 g/dL [facility] RDW CV 14.7 11.1 - 14.9 % [facility] RDW SD 53.1(H) 35.7 - 48.1 fL [facility] NRBC abs 0.00 0.00 - 0.01 K/cumm [facility] Blood 06/13/2022 11:4 0 AM CDT 06/13/2022 11:56 AM CDT Ramon Borjas MD LAB BLOOD ORDERABLES Final Result [facility] [employer] [place] [address] * Prepare RBC: 1 Units (06/13/2022 11:29 AM CDT) Units requested 1 [facility] Units requested Ready [facility] Unit Number [id number] [facility] Product code [id number] [facility] Blood Expiration Date [id number] [facility] Product Blood Type (for scanning) 7300 [facility] Product Blood Type BPOS [facility] Dispense Status DISPENSED [facility] Blood 06/13/2022 11:2 9 AM CDT 06/13/2022 11:29 AM CDT Ramon Borjas MD BLOOD BANK PRODUCT OR DERABLES Final Result Performing Organization Address [facility] de Phone Number GENARO [address] [employer] [place] [address] * eGFR (06/13/2022 9:50 AM CDT) [facility] eGFR 42 mL/min/1. 73 m2 [facility] Comment: Interpretive Data Reference Interval Normal ?>/= [...] Current interpretive data was last reviewed 2021. Blood 06/13/2022 9:50 AM CDT 06/13/2022 10:08 AM CDT Ramon Borjas MD LAB BLOOD ORDERABLES Final Result Performing Organization Address City/[facility] Co de Phone Number GENAR[facility] [address] Department [place] [address] * (ABNORMAL) Differential, auto (06/13/2022 9:50 AM CDT) Neutrophil abs 7.1(H) 1.7 - 6.5 K/cumm [facility] Imm gran abs 0.5(H) 0.0 - 0.1 K/cumm [facility] Lymphocyte abs 1.7 0.8 - 3.3 K/cumm [facility] Monocyte abs 0.7 0.2 - 0.8 K/cumm [facility] Eosinophil abs 0.2 0.0 - 0.5 K/cumm [facility] Basophil abs 0.0 0.0 - 0.1 K/cumm [facility] Neutrophil pct 69.7 % [facility] Comment: Interpretive Data Percent cell count reference ranges are not reported, since discordance with absolute values may lead to misinterpretation of CBC data. Current Interpretive Data was last revised on 2018. Imm gran pct 5.0 % [facility] Comment: Interpretive Data Percent cell count reference ranges are not reported, since discordance with absolute values may lead to misinterpretation of CBC data. Current Interpretive Data was last revised on 2018. Lymphocyte pct 16.3 % [facility] Comment: Interpretive Data Percent cell count reference ranges are not reported, since discordance with absolute values may lead to misinterpretation of CBC data. Current Interpretive Data was last revised on 2018. Monocyte pct 6.8 % [facility] Comment: Interpretive Data Percent cell count reference ranges are not reported, since discordance with absolute values may lead to misinterpretation of CBC data. Current Interpretive Data was last revised on 2018. Eosinophil pct 1.9 % [facility] Comment: Interpretive Data Percent cell count reference ranges are not reported, since discordance with absolute values may lead to misinterpretation of CBC data. Current Interpretive Data was last revised on 2018. Basophil pct 0.3 % [facility] Comment: Interpretive Data Percent cell count reference ranges are not reported, since discordance with absolute values may lead to misinterpretation of CBC data. Current Interpretive Data was last revised on 2018. Blood 06/13/2022 9:50 AM CDT 06/13/2022 10:08 AM CDT Ramon Borjas MD LAB BLOOD ORDERABLES Final Result Performing Organization Address City/[facility]/ZIP Co de Phone Number GENARO [address] [employer] [place] [address] * (ABNORMAL) Basic metabolic panel (06/13/2022 9:50 AM CDT) [facility] Sodium 143 135 - 145 mmol/L [facility] Potassium, pl 3.7 3.3 - 4.9 mmol/L [facility] Chloride 114(H) 97 - 110 mmol/L [facility] CO2 19(L) 22 - 32 mmol/L [facility] Anion gap 10 2 - 15 mmol/L [facility] BUN 54(H) 8 - 25 mg/dL [facility] Creatinine 1.70(H) 0.80 - 1.30 mg/dL [facility] Glucose 95 70 - 199 mg/dL [facility] Comment: Interpretive Data Fasting glucose >/= 126 [...] classification and Diagnosis of Diabetes Diabetes Care 2017;40 (Suppl. 1):S11. Current interpretive data was last revised 2017. Calcium 7.7(L) 8.5 - 10.3 mg/dL [facility] Blood 06/13/2022 9:50 AM CDT 06/13/2022 10:08 AM CDT Ramon Borjas MD LAB BLOOD ORDERABLES Final Result Performing Organization Address [facility]/ZIP Co de Phone Number GENARO [facility] [employer] [place] [address] * (ABNORMAL) CBC with auto differential (06/13/2022 9:50 AM CDT) WBC 10.2(H) 3.8 - 9.9 K/cumm [facility] Hgb 7.0(L) 13.0 - 17.5 g/dL [facility] Hct 22.6(L) 38.9 - 50.3 % [facility] Plt 147(L) 150 - 400 K/cumm [facility] MPV 11.8 9.1 - 12.3 fL [facility] RBC 2.27(L) 4.30 - 5.80 M/cumm [facility] MCV 99.6(H) 81.3 - 96.4 fL [facility] MCH 30.8 27.1 - 33.3 pg [facility] MCHC 31.0(L) 32.3 - 35.7 g/dL [facility] RDW CV 14.8 11.1 - 14.9 % [facility] RDW SD 53.7(H) 35.7 - 48.1 fL [facility] NRBC abs 0.00 0.00 - 0.01 K/cumm [facility] Blood 06/13/2022 9:50 AM CDT 06/13/2022 10:08 AM CDT us Ramon Borjas MD LAB BLOOD ORDERABLES Final Result Performing Organization Address City/State/[facility] Co de Phone Number [facility] [address] [facility] Department [place] [address] * Urinalysis reflex to microscopic and culture Urine (06/12/2022 12:46 PM CDT) Pathologist [facility] Color, ur Yellow Yellow [facility] Clarity, ur Clear Clear [facility] Specific gravity, ur 1.010 1.003 - 1.030 [facility] pH, urine 5.0 [facility] Protein, ur ql Negative Negative [facility] Glucose, ur ql Negative Negative [facility] Ketones, ur Negative Negative [facility] Bilirubin, ur Negative Negative [facility] Blood, ur Negative Negative [facility] Urobilinogen, ur <2.0 <2.0 mg/dL [facility] Nitrite, ur Negative Negative [facility] Leukocyte esterase, ur Negative Negative [facility] UA reflex comment Reflex conditions for microscopic UA and culture not met. CERNER Urine 06/12/2022 12:4 6 PM CDT 06/12/2022 1:06 PM CDT Narrative GENARO - 06/12/2022 1:10 PM CDT ?? Urine pH is affected by diet, medications, systemic acid-base disturbances, and renal tubular function. ??pH may affect urinary stone formation. ??For example, urine pH below 6.0 may help reduce the tendency for calcium phosphate stones and pH greater than 6.0 may reduce the tendency for uric acid stone formation. Source: [employer]. Last revised 11-07-2017 us Alejandro Avila MD LAB MICROBIOLOGY - GENERAL ORDERABLES Final Result GENARO [address] [facility] Department [place] [address] * XR Chest 1 Vw Portable (06/12/2022 10:42 AM CDT) Anatomical Region Laterality Modality Body, Chest N/A Computed Radiogr aphy 06/12/2022 11:2 1 AM CDT Narrative 06/12/2022 11:22 AM CDT EXAM DESCRIPTION: ?? XR CHEST 1 VIEW REASON FOR STUDY: ?? c/o of melena, r/o free air or cardiopulmonary processes ?? Onset weakness this morning, bloody bowel movements ?? TECHNIQUE: ?? One ??radiographic view of the chest acquired. COMPARISON: ?? Chest radiograph November 03, 2019 FINDINGS: LUNGS/PLEURA: ??No pleural effusion, airspace consolidation, or pneumothorax. HEART/MEDIASTINUM: ??Cardiomediastinal silhouette is unremarkable. HARDWARE/LINES/TUBES: ??None. BONES: ??No acute findings. OTHER: ??No free intraperitoneal air on this semi upright portable radiograph. IMPRESSION: ?? No acute abnormality. ?? THIS IS AN ELECTRONICALLY VERIFIED FINAL REPORT 06/12/2022 11:22 AM - Electronically signed by ??Cee DIAZ D: ??06/12/2022 11:22 AM T: Report ID: [id number] Reading Location: ??[id number] Procedure Note Cee Almonte KattDO - 06/12/2022 EXAM DESCRIPTION: XR CHEST 1 VIEW REASON FOR STUDY: c/o of melena, r/o free air or cardiopulmonaryprocesses Onset weakness this morning, bloody bowel movements TECHNIQUE: One radiographic view of the chest acquired. COMPARISON: Chest radiograph November 03, 2019 FINDINGS: LUNGS/PLEURA: No pleural effusion, airspace consolidation, orpneumothorax. HEART/MEDIASTINUM: Cardiomediastinal silhouette is unremarkable. HARDWARE/LINES/TUBES: None. BONES: No acute findings. OTHER: No free intraperitoneal air on this semi upright portableradiograph. IMPRESSION: No acute abnormality. THIS IS AN ELECTRONICALLY VERIFIED FINAL REPORT 06/12/2022 11:22 AM - Electronically signed by Cee Almonte D.O. AC T: Report ID: [id number] Reading Location: [place] [address] Alejandro Avila MD IMG XR PROCEDURES F inal Result * COVID-19 Coronavirus RNA Nasopharyngeal (06/12/2022 8:54 AM CDT) COVID-19 RNA Negative Negative [facility] Nasopharyngeal 06/12/2022 8: 54 AM CDT 06/12/2022 8:57 AM CDT [facility] 10[facility]01 AM CDT Is the patient experiencing any symptoms consistent with COVID (eg. Fever, cough, shortness of breath)?->No What is the reason for testing?->Screening prior to urgent surgery, procedure, BMT, immunosuppressive therapy??(Rapid) ??Interpretive data: Synonyms for this test include: PCR and NAAT . ??This test is performed using the [employer] Xpert Xpress plus assay. This is a real-time RT-PCR test intended for the qualitative detection of nucleic acid from the SARS-CoV-2. This assay has been reviewed by the FDA for Emergency Use Authorization (EUA). The performance characteristics have been verified by the performing laboratory. Results must be considered in the clinical context and a negative result does not rule out infection. Interpretive data last revised March 28, 2022. ??Interpretive data: Synonyms for this test include: PCR and NAAT . ??This test is performed using the [employer] Xpert Xpress plus assay. This is a real-time RT-PCR test intended for the qualitative detection of nucleic acid from the SARS-CoV-2. This assay has been reviewed by the FDA for Emergency Use Authorization (EUA). The performance characteristics have been verified by the performing laboratory. Results must be considered in the clinical context and a negative result does not rule out infection. Interpretive data last revised March 28, 2022. us Alejandro Avila MD LAB MICROBI OLOGY - GENERAL ORDERABLES Edited Result - Final Performing Organization Address [facility] Co de Phone Number [address] [employer] [place] [address] * ABO / Rh Confirmation Testing (06/12/2022 8:45 AM CDT) ABO/Rh Confirmation B Positive [facility] Blood 06/12/2022 8:45 AM CDT 06/12/2022 8:47 AM CDT us Alejandro Avila MD LAB BLOOD ORDERABLE S Final Result Performing Organization Address [facility] de Phone Number [address] [employer] [place] [address] * Crossmatch (06/12/2022 8:19 AM CDT) Crossmatch Compatible [facility] Unit number for crossmatch [id number] [facility] Blood 06/12/2022 8:19 AM CDT 06/12/2022 8:23 AM CDT Ramon Borjas MD LAB BLOOD BANK TEST O RDERABLES Final Result Performing Organization Address [facility] Co de Phone Number [address] [employer] [place] [address] * (ABNORMAL) Manual Differential (06/12/2022 8:19 AM CDT) Differential Manual [facility] Cells Counted 100 [facility] Neutrophil abs 17.7(H) 1.7 - 6.5 K/cumm [facility] Imm gran abs 1.1(H) 0.0 - 0.1 K/cumm [facility] Lymphocyte abs 2.0 0.8 - 3.3 K/cumm [facility] Monocyte abs 0.9(H) 0.2 - 0.8 K/cumm [facility] Eosinophil abs 0.2 0.0 - 0.5 K/cumm [facility] Neutrophil pct 81.0 % [facility] Comment: Interpretive Data Percent cell count reference ranges are not reported, since discordance with absolute values may lead to misinterpretation of CBC data. Current Interpretive Data was last revised on 2018. Lymphocyte pct 9.0 % [facility] Comment: Interpretive Data Percent cell count reference ranges are not reported, since discordance with absolute values may lead to misinterpretation of CBC data. Current Interpretive Data was last revised on 2018. Monocyte pct 4.0 % [facility] Comment: Interpretive Data Percent cell count reference ranges are not reported, since discordance with absolute values may lead to misinterpretation of CBC data. Current Interpretive Data was last revised on 2018. Eosinophil pct 1.0 % [facility] Comment: Interpretive Data Percent cell count reference ranges are not reported, since discordance with absolute values may lead to misinterpretation of CBC data. Current Interpretive Data was last revised on 2018. Metamyelocyte pct 5.0 % [facility] RBC morphology Present(A) [facility] Macrocytes 3-7/HPF(A) [facility] Platelet estimate Automated Count Confirmed [facility] Blood 06/12/2022 8:19 AM CDT 06/12/2022 8:23 AM CDT us Alejandro Avila MD LAB BLOOD ORDERABLE S Final Result [facility] [address] [facility] Department [place] [address] * eGFR (06/12/2022 8:19 AM CDT) eGFR 39 mL/min/1. 73 m2 [facility] Comment: Interpretive Data Reference Interval Normal ?>/= [...] Current interpretive data was last reviewed 2021. Blood 06/12/2022 8:19 AM CDT 06/12/2022 8:23 AM CDT us Alejandro Avila MD LAB BLOOD ORDERABLE S Final Result [facility]O [facility] [address] [facility] Department [place] [address] * Antibody screen (06/12/2022 8:19 AM CDT) Afshan, indirect, Gel Interpretation Negative ABSC [facility] Blood 06/12/2022 8:19 AM CDT 06/12/2022 8:23 AM CDT Narrative [facility] - 06/12/2022 9:05 AM CDT Has the patient had Daratumumab or Isatuximab in the past 6 months?->Unknown Alejandro Avila MD LAB BLOOD BANK TEST ORDERABLES Final Result Performing Organization Address [facility] Co de Phone Number [address] [address] * ABO/Rh (06/12/2022 8:19 AM CDT) ABO/Rh B Positive [facility] Blood 06/12/2022 8:19 AM CDT 06/12/2022 8:23 AM CDT Narrative [facility] - 06/12/2022 9:05 AM CDT Has the patient had Daratumumab or Isatuximab in the past 6 months?->Unknown Alejandro Avila MD LAB BLOOD BANK TEST ORDERABLES Final Result Performing Organization Address [facility] de Phone Number [address] [address] * Protime-INR (06/12/2022 8:19 AM CDT) PT 13.3 12.0 - 14.6 sec [facility] IN[facility] 1.0 0.9 - 1.2 [facility] Comment: Ref Range High Interpretive data Oral anticoagulant therapeutic ranges: Venous thromboembolism prophylaxis or treatment: 2.0-3.0 CARDIOLOGY Standard range: 2.0-3.0 High-intensity range: 2.5-3.5 Refer to indication-specific guidelines for appropriate target ranges for prosthetic heart valve replacement. Current interpretive data was last revised on 2019. Blood 06/12/2022 8:19 AM CDT 06/12/2022 8:23 AM CDT Alejandro Avila MD LAB BLOOD ORDERABLE S Final Result Performing Organization Address City/[facility] Co de Phone Number [facility] [address] [facility] Department [place] [address] * (ABNORMAL) Comprehensive metabolic panel (06/12/2022 8:19 AM CDT) Sodium 140 135 - 145 mmol/L [facility] Potassium, pl 4.3 3.3 - 4.9 mmol/L [facility] Chloride 107 97 - 110 mmol/L [facility] CO2 18(L) 22 - 32 mmol/L [facility] Anion gap 15 2 - 15 mmol/L [facility] BUN 75(H) 8 - 25 mg/dL [facility] Creatinine 1.80(H) 0.80 - 1.30 mg/dL [facility] Glucose 149 70 - 199 mg/dL [facility] Comment: Interpretive Data Fasting glucose >/= 126 [...] classification and Diagnosis of Diabetes Diabetes Care 2017;40 (Suppl. 1):S11. Current interpretive data was last revised 2017. Calcium 8.4(L) 8.5 - 10.3 mg/dL [facility] Bilirubin, total 0.5 0.1 - 1.2 mg/dL [facility] Protein, pl 5.6(L) 6.5 - 8.5 g/dL [facility] Albumin 3.6 3.5 - 5.0 g/dL [facility] Alk phos 71 40 - 130 Units/L [facility] ALT 21 7 - 55 Units/L [facility] AST 9(L) 10 - 50 Units/L [facility] Blood 06/12/2022 8:19 AM CDT 06/12/2022 8:23 AM CDT Alejandro Avila MD LAB BLOOD ORDERABLE S Final Result Performing Organization Address City/[facility]/ZIP Co de Phone Number GENARO [address] [place] [address] * (ABNORMAL) CBC with auto differential (06/12/2022 8:19 AM CDT) [facility] WBC 21.9(H) 3.8 - 9.9 K/cumm [facility] Hgb 9.8(L) 13.0 - 17.5 g/dL [facility] Hct 30.8(L) 38.9 - 50.3 % [facility] Plt 215 150 - 400 K/cumm [facility] MPV 11.7 9.1 - 12.3 fL [facility] RBC 3.06(L) 4.30 - 5.80 M/cumm [facility] MCV 100.7(H) 81.3 - 96.4 fL [facility] MCH 32.0 27.1 - 33.3 pg [facility] MCHC 31.8(L) 32.3 - 35.7 g/dL [facility] RDW CV 14.0 11.1 - 14.9 % [facility] RDW SD 51.4(H) 35.7 - 48.1 fL [facility] NRBC abs 0.00 0.00 - 0.01 K/cumm [facility] Blood 06/12/2022 8:19 AM CDT 06/12/2022 8:23 AM CDT us Alejandro Avila MD LAB BLOOD ORDERABLE S Edited Result - Final GENARO [address] Department of [employer] [place] [address] * ECG 12 lead (06/12/2022 8:06 AM CDT) [facility] Ventricular Rate EKG/Min 104 BPM [facility] Atrial Rate 104 BPM [facility] AL-Interval (MSEC) 114 ms [facility] QRS-Interval (MSEC) 82 ms [facility] QT-Interval (MSEC) 338 ms [facility] QTc 444 ms [facility] P [place] 40 degrees [facility] R [place] 49 degrees [facility] T [place] 44 degrees [facility] Diagnosis Sinus tachycardia with Premature supraventricular complexes Nonspecific ST abnormality Abnormal ECG When compared with ECG of 21-NOV-2020 12:02, Premature supraventricular complexes are now Present ST now depressed in Inferior leads [facility] 06/12/2022 8:06 AM CDT 06/12/2022 2:48 PM CDT us Alejandro Avila MD ECG ORDERABLES Fin al Result [facility] documented in this encounter Visit Diagnoses Diagnosis Melena- Primary Blood in stool Abdominal pain Abdominal pain, unspecified site Black stools Nonspecific abnormal finding in stool contents Melena Blood in stool Coronary artery disease Coronary atherosclerosis of unspecified type of vessel, [place] or graft Peripheral vascular disease (CMS/HCC) (HCC) Unspecified peripheral vascular disease Chronic kidney disease, stage III (moderate) (HCC) Chronic kidney disease, Stage III (moderate) Leukocytosis Leukocytosis, unspecified History of Crohn's disease Melena Blood in stool documented in this encounter Admitting Diagnoses Diagnosis Abdominal pain Abdominal pain, unspecified site documented in this encounter Administered Medications Inactive Administered Medications - up to 3 most recent administrations Medication Order MAR Action Action Date Dose Rate Site EPINEPHrine syringe (ADRENALIN) 0.1 mg/mL As needed, Starting on Sat06/12/22 at 1515, Intra-Op Given 06/12/2022 3:15 PM CDT 0.25 mg GI Tract ipratropium-albuteroL (DUO-NEB) 0.5-2.5 mg/3 mL nebulizer solution 3 mL 3 mL, nebulization, Every 6 hours PRN (sexual assault response coordinator), wheezing, shortness of breath, Starting on Sat06/18/22 at 0545, Indications: Chronic Obstructive Pulmonary Disease with BronchospasmsIndications:Chron ic Obstructive Pulmonary Disease with Bronchospasms levothyroxine (SYNTHROID) injection 60 mcg 60 mcg, intravenous, Administer over 1 Minutes, Daily, First dose on 06/17/22 at 0900 Given 06/18/2022 9:14 AM CDT 60 mcg Given 06/17/2022 7:45 AM CDT 60 mcg pantoprazole (PROTONIX) 4 mg/mL injection 40 mg 40 mg, intravenous, Administer over 2 Minutes, 2 times daily, First dose on Sat06/13/22 at 1200, For IV Push administration for adults- 40 mg vial: add 10 mL of sodium chloride 0.9% to achieve a final concentration of 4 mg/mL, Indications: GI BleedIndications:GI Bleed Given 06/18/2022 9:14 AM CDT 40 mg Given 06/17/2022 9:25 PM CDT 40 mg Given 06/17/2022 7:45 AM CDT 40 mg documented in this encounter Discontinued Medications Medication Sig Discontinue Reason Start Date End Da te denosumab (Prolia) 60 mg/mL syringe Inject 1 mL by subcutaneous route as directed for 180 days. Therapy completed 11/20/2016 06/12/2022 influenza trivalent [id number] (Fluad , 65 yr up,,PF,) 45 mcg (15 mcg x 3)/0.5 mL syringe Fluad 65yr up(PF)45 mcg(15 mcgx3)/0.5 mL intramuscular syringe ADM 0.5ML IM UTD Therapy completed 06/12/2022 predniSONE (DELTASONE) 20 mg tablet Take 3 tablets (60 mg) by mouth daily for 3 days, THEN 2 tablets (40 mg) daily for 3 days, THEN 1 tablet (20 mg) daily for 4 days. Therapy completed 06/03/2022 06/12/2022 triamcinolone (KENALOG) 0.1 % cream 1 application as needed Therapy completed 04/27/20202021 clopidogrel (PLAVIX) 75 mg tablet Take 75 mg by mouth daily Stop Taking at Discharge 06/18/2022 aspirin 81 mg enteric coated tablet Take 81 mg by mouth daily Stop Taking at Discharge 04/18/2020 06/18/2022 documented as of this encounter Active and Recently Administered Medications Times are shown in CDT. Scheduled Medication Order 06/16/2022 06/17/2022 06/18/2022 ipratropium-albuteroL (DUO-NEB) 0.5-2.5 mg/3 mL nebulizer solution 3 mL (CANCELED) 3 mL, nebulization, 2 times daily (sexual assault response coordinator), First dose (after last modification) on Sat06/13/22 at 2000, Indications: Chronic Obstructive Pulmonary Disease with Bronchospasms 801 (Given - Provider: Mila Aponte, JOSH)2047 (Given - Provider: Mercedez Espinoza) 075 (Given - Provider: Mila Aponte RRT)2037 (Given - Provider: Mila Adler RRT) levothyroxine (SYNTHROID) injection 60 mcg 60 mcg, intravenous, Administer over 1 Minutes, Daily, First dose on Sat06/17/22 at 0900 0745 (Given - Provider: Ceci Pope RN) 0914 (Given - Provider: Rachel Frank, CHRIS) pantoprazole (PROTONIX) 4 mg/mL injection 40 mg 40 mg, intravenous, Administer over 2 Minutes, 2 times daily, First dose on Sat06/13/22 at 1200, For IV Push administration for adults- 40 mg vial: add 10 mL of sodium chloride 0.9% to achieve a final concentration of 4 mg/mL, Indications: GI Bleed 0833 (Given - Provider: Stevan Gilliam RN)2155 (Given - Provider: Nadine Prasad RN) 0745 (Given - Provider: Ceci Pope RN)2125 (Given - Provider: Tameka Silva RN) 0914 (Given - Provider: Rachel Frank, CHRIS) PRN Medication Order 06/16/2022 06/17/2022 06/18/2022 hydrALAZINE (APRESOLINE) injection 10 mg 10 mg, intravenous, Administer over 2 Minutes, Every 6 hours PRN, high blood pressure, BP>160/90, Starting on Sat06/13/22 at 1018, Indications: hypertension ipratropium-albuteroL (DUO-NEB) 0.5-2.5 mg/3 mL nebulizer solution 3 mL 3 mL, nebulization, Every 6 hours PRN (sexual assault response coordinator), wheezing, shortness of breath, Starting on Sat06/18/22 at 0545, Indications: Chronic Obstructive Pulmonary Disease with Bronchospasms documented in this encounter Orders Medications Ordered That Amaury ht Not Have Been Administered Count Last Ordered Date First Ordered Date ipratropium-albuteroL (DUO-N EB) 0.5-2.5 mg/3 mL nebulizer solution 3 mL 3 06/18/2022 06/13/20 hydrALAZINE (APRESOLINE) injection 10 mg 1 06/13/2022 levothyroxine (SYNTHROID) injection 60 mcg 1 06/13/2022 pantoprazole (PROTONIX) 4 mg /mL injection 40 mg 1 06/13/2022 sodium chloride 0.9% IVPB 0-250 mL 1 2021 albuterol 2.5 mg /3 mL (0.08 3 %) nebulizer solution 2.5 mg 1 06/12/2022 diphenhydrAMINE (BENADRYL) i njection 12.5 mg 1 06/12/2022 EPINEPHrine syringe (ADRENAL IN) 0.1 mg/mL 1 mg 1 06/12/2022 fentaNYL (SUBLIMAZE) preserv ative free injection 25 mcg 1 06/12/2022 fentaNYL (SUBLIMAZE) preserv ative free injection 50 mcg 1 06/12/2022 hydrALAZINE (APRESOLINE) injection 5 mg 1 0 06/12/2022 labetaloL (NORMODYNE,TRANDAT E) injection 5 mg 1 06/12/2022 metoclopramide (REGLAN) injection 10 mg 1 0 06/12/2022 naloxone (NARCAN) 0.4 mg/mL injection 0.04-0.4 mg 1 06/12/2022 ondansetron (ZOFRAN) injection 4 mg 1 06/12 pantoprazole (PROTONIX) 4 mg /mL injection 80 mg 1 06/12/2022 sodium chloride 0.9% bolus 1,000 mL 1 06/12 sodium chloride 0.9% infusion 2 06/12/2022 Diet Count Last Ordered Date First Orde red Date ADULT DISCHARGE DIET 1 06/18/2022 Nursing Count Last Ordered Date First Orde red Date DISCHARGE ACTIVITY 1 06/18/2022 NURSING COMMUNICATION 1 06/13/2022 OBTAIN BLOOD ADMINISTRATION CONSENT 1 06/13 Admission Count Last Ordered Date First Orde red Date ADMIT TO INPATIENT 1 06/12/2022 Transfer Count Last Ordered Date First Orde red Date ED TO FLOOR BED REQUEST 1 06/12/2022 Discharge Count Last Ordered Date First Orde red Date DISCHARGE PATIENT 1 06/18/2022 Case Request Count Last Ordered Date First Orde red Date CASE REQUEST GI 1 06/12/2022 documented in this encounter Care Teams Core Sticker Relationship Specialty Start Date End Date Nickie Negron MD [address] [place] [address] PCP - General 01/13/19 documented as of this encounter
--- OUTSIDE RECORDS SUMMARY | 2024-10-27 10:55 | XMS_ITS | Encounter Summary ---
Author Organization [facility] Address [address] [place] [address] Care Team Providers Care High School Business Teacher Name Role Phone Nickie Negron MD Primary Care Provider +1- [phone] Encounter Details Date Type Department Care Team (Late st Contact Info) Description 01/19/2021 Orders Only [facility] Information Management [address] [place] [id number] Scanning, Provider Social History Tobacco Use Types Packs/Day Years Used Date Smoking Tobacco: Former Alcohol Use Standard Drinks/Week Comments Not Currently 0 (1 standard drink = 0.6 oz pur e alcohol) AUDIT-C Answer Date Recorded Q1: How often do you have a drink containing alc ohol? 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 Gender Identity Not on file Sexual Orientation Not on file documented as of this encounter Plan of Treatment Not on file documented as of this encounter Procedures Procedure Name Priority Date/Time Associated Diagnosis Comments SCAN - RADIOLOGY/IMAGING 01/19/2021 documented in this encounter Results * SCAN - RADIOLOGY/IMAGING (01/19/2021) Anatomical Region Laterality Modality Other us Provider Scanning Final Result documented in this encounter Visit Diagnoses Not on filedocumented in this encounter Care Teams High School Business Teacher Relationship Specialty Start Date End Date Nickie Negron MD [address] [facility] [address] [place] [address] PCP - General 01/13/19 documented as of this encounter
--- OUTSIDE RECORDS SUMMARY | 2024-10-27 10:55 | XMS_ITS | Encounter Summary ---
Author Organization [facility] Address [address] [place] [address] Care Team Providers Care Shale Processing Technician Name Role Phone Nickie Negron MD Primary Care Provider [phone]- [phone] Reason for Referral * Diagnostic Imaging (Routine) - Closed Specialty Diagnoses / Procedures Referred By Roula t Referred To Contact Diagnoses Aftercare following surgery of the circulatory system, NEC Procedures US Arterial Doppler Lower Extremity Bilateral Solomon Martinez MD [address] [place] [address] [address] [address] Phone: tel: fax: [facility] Medical Office Building [address] [place] [phone] Referral ID Status Reason Start Date Expiration Date Visits Re quested Visits Authorized [id number] Closed 04/10/2021 05/10/2022 1 1 Encounter Details Date Type Department Care Team (Late st Contact Info) Description 04/10/2021 Orders Only [facility] Medical [facility] Vascular and Vein Surgery [address] [place] [address] [address] [place] [address] Solomon Martinez MD [address] [place] [address] [address] [place] [address] Aftercare following surgery of the circulatory system, NEC (Primary Dx) Social History Tobacco Use Types Packs/Day Years Used Date Smoking Tobacco: Former Smokeless Tobacco: Never Alcohol Use Standard Drinks/Week Comments Not Currently 0 (1 standard drink = 0.6 oz pur e alcohol) AUDIT-C Answer Date Recorded Frequency of Alcohol Consumption Never 07/24/2019 Average Number of Drinks Not on file 019 Frequency of Binge Drinking Not on file 06/29 Sex and Gender Information Value Date Recorded Sex Assigned at Not on file 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 Job ID: [id number] [employer] Document ID: [id number] Dictated date/time: [id number] LOWER EXTREMITY ARTERIAL DOPPLER STUDY REASON FOR EXAM Claudication. COMMENTS ON THE RIGHT Brachial pressure is 132. ??Thigh and calf pressures noncompressible, waveforms are triphasic right lower extremity. COMMENTS ON THE LEFT Thigh and calf vessels noncompressible. ??Waveform triphasic in the common femoral and popliteal level, biphasic at the tibial level. OVERALL IMPRESSION NAS is unreliable secondary to vessel noncompressibility. ??Waveform analysis is normal right lower extremity. ??Waveform analysis left lower extremity suggests infrapopliteal disease of moderate severity. JOB ID/VF JOB ID: ??[id number] us Solomon Martinez MD IM US PROCEDURES Final Re sult documented in this encounter Visit Diagnoses Diagnosis Aftercare following surgery of the circulatory system, NEC- Primary Aftercare following surgery of the circulatory system, NEC documented in this encounter Care Teams Shale Processing Technician Relationship Specialty Start Date End Date Nickie Negron MD [address] [facility] [address] [place] [address] PCP - General 01/13/19 documented as of this encounter
--- OUTSIDE RECORDS SUMMARY | 2024-10-27 10:55 | XMS_ITS | Encounter Summary ---
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 Gender Identity Not on file Sexual Orientation Not on file documented as of this encounter Plan of Treatment Not on file documented as of this encounter Procedures Procedure Name Priority Date/Time Associated Diagnosis Comments BASIC METABOLIC PANEL Routine 02/03/2021 documented in this encounter Results * Basic metabolic panel (02/03/2021) Blood specimen (specimen) us Historical Provider LAB BLOOD ORDERABLES Shruthi l Result documented in this encounter Visit Diagnoses Not on filedocumented in this encounter Care Teams Opticianry Teacher Relationship Specialty Start Date End Date Nickie Negron MD [address] [facility] [address] [place] [address] PCP - General 01/13/19 documented as of this encounter
--- OUTSIDE RECORDS SUMMARY | 2024-10-27 10:55 | XMS_ITS | Encounter Summary ---
Author Organization [facility] Healthcare Address [address] [place] [address] Care Team Providers Care Dial Brusher Name Role Phone Nickie Negron MD Primary Care Provider +1- [phone] Reason for Visit * Auth/Cert Specialty Diagnoses / Procedures Referred By Roula mcmillan Referred To Contact Diagnoses Abdominal pain Black stools Procedures ADM Referral ID Status Reason Start Date Expiration Date Visits Re quested Visits Authorized [id number] 1 1 Encounter Details Date Type Department Care Team (Late st Contact Info) Description 06/12/2022 2:38 PM CDT Anesthesia Event [facility] [address] [place] [address] Carlos A Lee, [address] [place] [address] Anesthesia Record Procedure Summary Procedure Name Responsible Anesthesiologist Anesthesia Start Time Anesthesia Stop Time ESOPHAGOGASTRODUODENOSCOPY CONTROL BLEED Carlos A Lee DO 06/12/22 1438 06/12/22 1530 Events Date Time Event Comment 06/12/2022 1436 In Room 1438 An Start 1438 An Start Data 1442 1505 An Induction The patient was reevaluated immediately before moderate or deep sedation use and before anesthesia induction. 1507 Anesthesia Ready 1511 Proc Start 1518 Proc Fin 1524 Out of Room 1525 an stop data 1527 Handoff to RN I completed my handoff [...] disposition at the time of handoff: PACU 1530 An Stop Meds Name Total lidocaine (cardiac) syringe 2 % 50 mg propofol 160 mg phenylephrine injection 100 mcg/mL 300 m cg sodium chloride 0.9% infusion 200 mL * Agents Name O2% N2O O2 N2O Air * Blood No blood administrations on file. 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 Gender Identity Not on file Sexual Orientation Not on file documented as of this encounter OR Notes * Anesthesia Postprocedure Evaluation - Carlos A Lee DO - 06/12/2022 4:15 PM CDT Patient: Julius Andrade Procedure Summary Date: 06/12/22 Room / Location: [facility] ENDOSCOPY ROOM 09 ERCP / [facility] ENDOSCOPY Anesthesia Start: 1438 Anesthesia Stop: 153 Procedure: ESOPHAGOGASTRODUODENOSCOPY CONTROL BLEED (N/A ) Diagnosis: Melena (Melena [K92.1]) Providers: Alvin Alicia MD Responsible Provider: Carlos A Lee DO Anesthesia Type: MAC ASA Status: 4 Anesthesia Type: MAC Last vitals BP 131/80 (BP Location: Left arm, Patient Position: Lying) Pulse 94 Temp 36.3 ??C (97.4 ??F) (Oral) Resp 21 SpO2 99% Anesthesia Post Evaluation Patient location during evaluation: PACU Patient participation: complete - patient participated Level of consciousness: fully awake Pain management: adequate Airway patency: adequate Cardiovascular status: acceptable Respiratory status: acceptable Hydration status: acceptable Pt is: normothermic Nausea/Vomiting status: none No complications documented. * Anesthesia Preprocedure Evaluation - Carlos A Lee DO - 06/12/2022 2:21 PM CDT Images from the original note were not included. Anesthesia Evaluation Julius Andrade is a 71 y.o. male Procedure(s): ESOPHAGOGASTRODUODENOSCOPY Pre-Op Diagnosis Codes: * Melena [K92.1] NPO appropriate . Labs reviewed. Cr 1.8, Hgb 9.8 ECG reviewed 01/2016 TTE WNL Carotid Duplex 02/21/22 OVERALL [...] Comments: CAD S/p atherectomy, PCI/stent in 2016 Holding ASA, Plavix due to acute GIB Cont statin, low dose BB PVD S/p balloon angioplasty in the past No current symptoms Holding ASA, Pletal, Plavix due to acute GIB Respiratory + COPD Rescue inhaler use: 2 days/week or less. + Asthma Rescue inhaler use: 2 days/week or less. Renal / + Renal disease Musculoskeletal/Pain + Osteoarthritis Endocrine / Other + Thyroid disease - hypothyroidism + Rheumatological disease - Crohn's disease. Review of Systems + SOB (baseline SOB) Pertinent negatives: chest pain; heartburn and nausea Patient Active [...] Chronic kidney disease, stage III (moderate) (HCC) Past Medical History: Diagnosis Date ??? Celiac sprue ??? Chronic kidney disease, stage III (moderate) (HCC) ??? Crohn's colitis (CMS/HCC) (HCC) ??? DJD (degenerative joint disease) ??? Hypokalemia ??? Hypomagnesemia ??? Hypophosphatemia Past Surgical History: Procedure Laterality Date ??? ATHERECTOMY Left 05/04/2015 popliteal ??? COLONOSCOPY W/ BIOPSIES 04/13/2016 ??? NECK SURGERY 10/22/2011 Neck fracture Allergies Allergen Reactions ??? Gluten ??? Lactose Stomach upset Med List Status: Pharmacy Complete Set By: Jennifer Jim [facility] at 06/12/2022 10:55 AM Taking? Last Dose Start Date End Date Provider acetaminophen (TYLENOL) 500 mg tablet Unknown -- -- Provider, MD Js albuterol HFA (PROVENTIL HFA,VENTOLIN HFA,PROAIR HFA) 90 mcg/actuation inhaler Unknown -- -- Provider, MD Js Asacol HD 800 mg EC tablet 06/11/2022 05/11/21 -- Provider, MD Js aspirin 81 mg enteric coated tablet 06/11/2022 04/18/20 -- Provider, MD Js buPROPion XL (WELLBUTRIN XL) 150 mg 24 hr tablet 06/11/2022 -- -- Provider, MD Js carvediloL (COREG) 3.125 mg tablet 06/11/2022 06/19/21 -- Provider, MD Js cholecalciferol (VITAMIN D-3) 5,000 unit tablet 06/11/2022 -- -- Provider, MD Js cholestyramine (QUESTRAN) 4 gram powder Unknown -- -- Provider, MD Js cilostazol (PLETAL) 50 mg tablet 06/11/2022 -- -- Provider, MD Js clopidogrel (PLAVIX) 75 mg tablet 06/11/2022 -- -- Provider, MD Js cyanocobalamin, vitamin B-12, 5,000 mcg tablet, sublingual 06/11/2022 -- -- Provider, MD Js diclofenac sodium (VOLTAREN) 1 % gel Unknown -- -- Provider, MD Js fluticasone propionate (FLONASE) 50 mcg/actuation nasal spray Unknown -- -- Js Cantu MD folic acid (FOLVITE) 1 mg tablet 06/11/2022 01/27/20 -- Js Cantu MD levothyroxine (SYNTHROID) 125 mcg tablet 06/11/2022 -- -- Js Cantu MD pravastatin (PRAVACHOL) 10 mg tablet 06/11/2022 05/19/19 -- Js Cantu MD sodium bicarbonate 650 mg tablet 06/11/2022 02/09/22 -- Shree Gutiérrez MD Take 2 tablets (1,300 mg total) by mouth 3 (three) times a day VIAGRA 50 mg tablet Unknown 07/13/19 -- Js Cantu MD vit C,F-Ci-xxoxi-lutein-zeaxan (PreserVision AREDS-2) 250-90-40-1 mg capsule 06/11/2022 -- -- Js Cantu MD Current Facility-Administered Medications: ??? sodium chloride 0.9% infusion, 75 mL/hr, intravenous, Continuous Social History Tobacco Use Smoking Status Former Smoker Smokeless Tobacco Never Used Alcohol Use: Not At Risk ??? Frequency of Alcohol Consumption: Never ??? Average Number of Drinks: Not on file ??? Frequency of Binge Drinking: Not on file Substance and Sexual Activity Drug Use Not Currently Family History Problem Relation Age of Onset ??? Cerebral aneurysm Father Family history of cerebral aneurysm - (Added by TW Conv) ??? Hypertension Other Vitals: 06/12/22 1100 06/12/22 1105 06/12/22 1206 BP: 134/98 140/86 128/76 Pulse: 99 99 92 Resp: Temp: 36.6 ??C (97.9 ??F) SpO2: 100% 100% 100% PT: 06/12/2022: 13.3 sec INR: 06/12/2022: 1.0 APTT: No results found for requested labs within last 720 hours. Hgb A1C: No results found for requested labs within last 720 hours. CBC RBC: 06/12/2022: 3.06 M/cumm (L) RDW: No results found for requested labs within last 720 hours. MCHC: 06/12/2022: 31.8 g/dL (L) MCH: 06/12/2022: 32.0 pg MCV: 06/12/2022: 100.7 fL (H) Hct: 06/12/2022: 30.8 % (L) Hgb: 06/12/2022: 9.8 g/dL (L) WBC: 06/12/2022: 21.9 K/cumm (H) MPV: 06/12/2022: 11.7 fL Platelets: 06/12/2022: 215 K/cumm RDW CV: 06/12/2022: 14.0 % RDW Sd: 06/12/2022: 51.4 fL (H) BMP Glucose: 06/12/2022: 149 mg/dL Calcium: 06/12/2022: 8.4 mg/dL (L) Sodium: 06/12/2022: 140 mmol/L Potassium: 06/12/2022: 4.3 mmol/L CO2: 06/12/2022: 18 mmol/L (L) Chloride: 06/12/2022: 107 mmol/L BUN: 06/12/2022: 75 mg/dL (H) Creatinine: 06/12/2022: 1.80 mg/dL (H) DOS Physical Exam Medical history, medications, and allergies reviewed. Attestation: I endorse the findings of the anesthesia pre-evaluation assessment dated: 06/12/2022. Airway Exam: Mallampati: I Cervical ROM: FROM TM distance: normal Cardiovascular Exam: Rate: regular Rhythm: regular Pulmonary Exam: LCTA, bilat EENT Exam: trachea midline Dental Exam: Edentulous Current state: Patient's current state is cooperative. Anesthesia Plan ASA 4 My patient is approved for the Anesthesia Controlled Medication protocol when under care of a PERIODICALS CLERK Planned anesthesia: MAC Comments: Discussed possible GETA Induction: Induction: intravenous. Informed Consent: Discussed plan with PERIODICALS CLERK. Anesthesia plan and risks discussed with patient. Consent and Attending signature: I and/or my designee have discussed the anesthesia plan, benefits, possible alternatives, parental presence at time of induction (if indicated), and clinically relevant risks that may include dental injury, unintentional awareness, and/or other complications. The patient and/or parent/legal guardian understand, and agree to proceed. All questions answered. documented in this encounter Plan of Treatment Not on file documented as of this encounter Visit Diagnoses Not on filedocumented in this encounter Administered Medications Inactive Administered Medications - up to 3 most recent administrations Medication Order MAR Action Action Date Dose Rate Site lidocaine (cardiac) (XYLOCAINE) preservative free injection intravenous, As needed, Starting on Sat06/12/22 at 1505, Anesthesia Intra-op, Indications: Ventricular ArrhythmiasIndications:Ventricula r Arrhythmias Given 06/12/2022 3:05 PM CDT 50 mg phenylephrine (ISAURA-SYNEPHRINE) 1 mg/10 mL (100 mcg/mL) in sodium chloride 0.9% (premix) intravenous, As needed, Starting on Sat06/12/22 at 1508, Anesthesia Intra-op Given 06/12/2022 3:16 PM CDT 100 mcg Given 06/12/2022 3:11 PM CDT 100 mcg Given 06/12/2022 3:08 PM CDT 100 mcg propofoL (DIPRIVAN) 10 mg/mL IV intravenous, As needed, Starting on Sat06/12/22 at 1505, Anesthesia Intra-op Given 06/12/2022 3:18 PM CDT 20 mg Given 06/12/2022 3:15 PM CDT 20 mg Given 06/12/2022 3:11 PM CDT 20 mg sodium chloride 0.9% infusion 75 mL/hr, intravenous, Continuous, Starting on Sat06/12/22 at 1005 New Bag 06/15/2022 10:17 PM CDT 75 mL/hr 75 mL/hr New Bag 06/15/2022 7:30 AM CDT 75 mL/hr 75 mL/hr New Bag 06/14/2022 5:53 PM CDT 75 mL/hr 75 mL/hr documented in this encounter Care Teams Dial Brusher Relationship Specialty Start Date End Date Nickie Negron MD [address] [place] [address] PCP - General 01/13/19 documented as of this encounter
--- OUTSIDE RECORDS SUMMARY | 2024-10-27 10:55 | XMS_ITS | Encounter Summary ---
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 11/20/2016 2 influenza trivalent 7049-5130 (Fluad , 65 yr up,,PF,) 45 mcg (15 mcg x 3)/0.5 mL syringe Fluad 2018- 65yr up(PF)45 mcg(15 mcgx3)/0.5 mL intramuscular syringe ADM 0.5ML IM UTD 2 levothyroxine (SYNTHROID) 125 mcg tablet Take 1 tablet (125 mcg total) by mouth manager visual before breakfast 4 lisinopriL (PRINIVIL,ZESTRI L) 10 mg tablet Take 10 mg by mouth daily 10/31/2020 1 triamcinolone (KENALOG) 0.1 % cream 1 application as needed 04/27/2020 2 VIAGRA 50 mg tablet Take 1 tablet (50 mg total) by mouth as needed 07/13/2019 4 documented as of this encounter Plan of Treatment Not on file documented as of this encounter Procedures Procedure Name Priority Date/Time Associated Diagnosis Comments CTA NECK W CONTRAST 02/09/2021 1 2:00 AM CDT documented in this encounter Results * CTA Neck W Contrast (02/09/2021 12:00 AM CDT) Anatomical Region Laterality Modality Head and Neck N/A Computed Tomogra phy 02/09/2021 3:13 PM CDT Narrative 02/09/2021 3:26 PM CDT Patient Name: JULIUS ANDRADE ?Ordering Dr: Solomon Martinez MD ?? D.O.B: 1950 ? Exam Date: 02/09/21 ?? 0000 ?? Age: 70 ?Sex: Male ? MR#: [id number] ?? Loc: ? RADIOLOGY REPORT ?? Order #[id number] ?? CT Scan ? CTA Carotids w Contrast ? Signed ?? EXAM DESCRIPTION: ?? CTA Carotids w Contrast ? REASON FOR STUDY: ?? Bilateral carotid artery occlusion. ? TECHNIQUE: ??Axial dynamic scanning technique with dynamic contrast enhancement ?? through the extra-cranial carotid and vertebral ??arteries. ??Multiplanar ?? reconstruction. All images saved on PACS. ??All stenosis measurements are based ?? on NASCET criteria. ?? 3D MIP images rendered on scanning unit and reviewed at ?? time of interpretation. Automated exposure control was used as a dose ?? optimization technique for this examination. ? COMPARISON: ?? None. ? CONTRAST TYPE/DOSE: ?? 100 cc Optiray 350 injected via ??right hand. ? FINDINGS: ? RIGHT CAROTIDS: ?? Common carotid artery is patent. ??There is mild calcified ?? plaque at the carotid bulb and extending into the proximal internal carotid ?? artery. ??There is also involvement of the ECA. ??However, no flow limiting ?? stenosis or occlusion is identified. ? LEFT CAROTIDS: ??Common carotid artery is occluded within 3 cm of its origin. ? It tapers at the thoracic inlet. ??There is very heavily calcified plaque ?? incorporating the distal common carotid artery and carotid bifurcation. ? Subsequently there is some reconstituted flow, presumptively through the ECA ?? with mild filling of a very diminutive caliber left ICA measuring up to 2-3 mm ?? in diameter but with reduced enhancement compared to the more normal right ?? internal carotid artery measuring closer to 5.4 mm and demonstrating more avid ?? enhancement. ? LEFT VERTEBRAL: ??Mild calcified plaque at the origin of the left vertebral ?? artery which is patent. ??The V1, V2 and V3 segments are all patent. ? RIGHT VERTEBRAL: ??Moderate stenosis of the right vertebral artery origin. ??The ?? V1, V2 and V3 segments are patent. ? AORTIC ARCH: ??Atherosclerosis. ??Normal 3 vessel branching pattern. ??No ?? evidence of subclavian artery stenosis. ? NECK SOFT TISSUE: ??There is no mass or lymphadenopathy identified. ? INCLUDED LUNGS: ??Clear. ? OTHER: ?? Likely developmental midline cleft within the anterior ring of C1. ? IMPRESSION: ? 1. ??The left common carotid artery is occluded within 3 cm of its origin. ? 2. ??There is reconstituted flow at the left carotid bulb with very diminutive ?? and mildly enhancing left cervical ICA measuring 2-3 mm in diameter. ? 3. ??No flow limiting stenosis of the right cervical ICA. ? 4. ??Both vertebral arteries are patent. ? THIS IS AN ELECTRONICALLY VERIFIED FINAL REPORT ?? 02/09/2021 3:26 PM - Electronically signed by Miguelangel Valenzuela D.O. ?? Miguelangel Valenzuela D.O. ? D: ??02/09/2021 3:25 PM ?? T: ? Report ID: [id number] ?? Reading Location: ??[id number] ? REPORT ELECTRONICALLY SIGNED IN OTHER VENDOR SYSTEM ?? Resulting Agency Comment O Procedure Note Miguelangel Valenzuela DO - 02/09/2021 Patient Name: JULIUS ANDRADE Dr: Solomon Martinez MD D.O.B: 1950 Exam Date: 02/09/21 0000 Age: 70 Sex: Male MR#: [id number] Loc: RADIOLOGY REPORT Order #[id number] CT Scan CTA Carotids w Contrast Signed EXAM DESCRIPTION: CTA Carotids w Contrast REASON FOR STUDY: Bilateral carotid artery occlusion. TECHNIQUE: Axial dynamic scanning technique with dynamic contrastenhancement through the extra-cranial carotid and vertebral arteries. Multiplanar reconstruction. All images saved on PACS. All stenosis measurements arebased on NASCET criteria. 3D MIP images rendered on scanning unit andreviewed at time of interpretation. Automated exposure control was used as a dose optimization technique for this examination. COMPARISON: None. CONTRAST TYPE/DOSE: 100 cc Optiray 350 injected via right hand. FINDINGS: RIGHT CAROTIDS: Common carotid artery is patent. There is mildcalcified plaque at the carotid bulb and extending into the proximal internalcarotid artery. There is also involvement of the ECA. However, no flow limiting stenosis or occlusion is identified. LEFT CAROTIDS: Common carotid artery is occluded within 3 cm of itsorigin. It tapers at the thoracic inlet. There is very heavily calcified plaque incorporating the distal common carotid artery and carotid bifurcation. Subsequently there is some reconstituted flow, presumptively through theECA with mild filling of a very diminutive caliber left ICA measuring up to2-3 mm in diameter but with reduced enhancement compared to the more normalright internal carotid artery measuring closer to 5.4 mm and demonstrating moreavid enhancement. LEFT VERTEBRAL: Mild calcified plaque at the origin of the leftvertebral artery which is patent. The V1, V2 and V3 segments are all patent. RIGHT VERTEBRAL: Moderate stenosis of the right vertebral artery origin.The V1, V2 and V3 segments are patent. AORTIC ARCH: Atherosclerosis. Normal 3 vessel branching pattern. No evidence of subclavian artery stenosis. NECK SOFT TISSUE: There is no mass or lymphadenopathy identified. INCLUDED LUNGS: Clear. OTHER: Likely developmental midline cleft within the anterior ring ofC1. IMPRESSION: 1. The left common carotid artery is occluded within 3 cm of its origin. 2. There is reconstituted flow at the left carotid bulb with verydiminutive and mildly enhancing left cervical ICA measuring 2-3 mm in diameter. 3. No flow limiting stenosis of the right cervical ICA. 4. Both vertebral arteries are patent. THIS IS AN ELECTRONICALLY VERIFIED FINAL REPORT 02/09/2021 3:26 PM - Electronically signed by Miguelangel Valenzuela D.O. T: Report ID: [id number] Reading Location: [id number] REPORT ELECTRONICALLY SIGNED IN OTHER VENDOR SYSTEM us Solomon Martinez MD IMG CT PROCEDURES Final Re sult documented in this encounter Visit Diagnoses Not on filedocumented in this encounter Care Teams Acid Plant Helper Relationship Specialty Start Date End Date Nickie Negron MD [address] [facility] [address] [place] [address] PCP - General 01/13/19 documented as of this encounter
--- OUTSIDE RECORDS SUMMARY | 2024-10-27 10:55 | XMS_ITS | Encounter Summary ---
Author Organization [facility] Address [address] [facility] [address] [place] [address] Care Team Providers Care Planning Manager Name Role Phone Nickie Negron MD Primary Care Provider [phone]- [phone] Encounter Details Date Type Department Care Team (Late st Contact Info) Description 02/01/2021 Orders Only [facility] Vascular and Vein Surgery [address] [facility] [address] [place] [address] Solomon Martinez MD [address] [facility] [address] [place] [address] Bilateral carotid artery occlusion (Primary Dx) Social History Tobacco Use Types [...] on file 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
--- OUTSIDE RECORDS SUMMARY | 2024-10-27 10:55 | XMS_ITS | Encounter Summary ---
Author Organization [facility] Address [address] [facility] [address] [place] [address] Care Team Providers Care Core Drilling Supervisor Name Role Phone Nickie Negrno MD Primary Care Provider [phone]- [phone] Reason for Referral * Diagnostic Imaging (Routine) - Closed Specialty Diagnoses / Procedures Referred By Roula t Referred To Contact Diagnoses Bilateral carotid artery occlusion Procedures US Carotids Duplex Bilateral Solomon Martinez MD [address] [place] [address] [address] [address] Phone: tel: fax: [facility] [address] [place] [phone] Referral ID Status Reason Start Date Expiration Date Visits Re quested Visits Authorized [id number] Closed 08/16/2021 09/15/2022 1 1 Encounter Details Date Type Department Care Team (Late st Contact Info) Description 08/16/2021 Orders Only [facility] Vascular and Vein Surgery [address] [facility] [address] [place] [address] Solomon Martinez MD [address] [place] [address] [address] [address] Bilateral carotid artery occlusion (Primary Dx) Social [...] on file 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 COMMENTS ON THE RIGHT Peak systolic velocity of CCA of 82, ICA of 51. ??Smooth heterogenous plaques in proximal ICA. ??ECA velocity of 156. ??Antegrade flow noted, vertebral artery velocity of 64. COMMENTS ON THE LEFT Peak systolic velocity of the CCA of 34. ??Retrograde filling of the internal carotid artery via the external carotid artery with a velocity of 15. ??Antegrade flow noted, left vertebral artery velocity 37. OVERALL IMPRESSION 1. There is 16% to 49% stenosis right internal carotid artery with chronic occlusion of the distal common carotid artery, retrograde filling of the internal carotid artery via the external carotid artery on the left. 2. Antegrade flow noted bilateral vertebral arteries. JOB ID/VF JOB ID: ??[id number] us Solomon Martinez MD IMG US PROCEDURES Final Re sult documented in this encounter Visit Diagnoses Diagnosis Bilateral carotid artery occlusion- Primary Occlusion and stenosis of carotid artery without mention of cerebral infarction Bilateral carotid artery occlusion Occlusion and stenosis of carotid artery without mention of cerebral infarction documented in this encounter Care Teams Core Drilling Supervisor Relationship Specialty Start Date End Date Nickie Negron MD [address] [facility] [address] [place] [id number] PCP - General 01/13/19 documented as of this encounter
--- OUTSIDE RECORDS SUMMARY | 2024-10-27 10:55 | XMS_ITS | Encounter Summary ---
Author Organization [facility] Address [address] [facility] [address] [place] [address] Care Team Providers Care Impact Retail Service Merchandiser Name Role Phone Nickie Negron MD Primary Care Provider [phone]- [phone] Reason for Visit * Reason Comments Chronic Kidney Disease - Follow Up Visit Encounter Details Date Type Department Care Team (Late st Contact Info) Description 02/09/2022 9:30 AM CDT Office Visit 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 Gender Identity Not on file Sexual Orientation Not on file documented as of this encounter Last Filed Vital Signs Vital Sign Reading Time Taken Comments Blood Pressure 138/82 02/09/2022 9:16 AM CDT Pulse 79 02/09/2022 9:16 AM CDT Temperature 36.6 ??C (97.8 ??F) 02/09/2022 9:16 AM CD T Respiratory Rate - - Oxygen Saturation - - Inhaled Oxygen Concentration - - Weight 65.3 kg (144 lb) 02/09/2022 9:16 AM CDT Height 162.6 cm (5' 4 ) 02/09/2022 9:16 AM CDT Body Mass Index 24.72 02/09/2022 9:16 AM CDT documented in this encounter Ordered Prescriptions Prescription Sig Dispense Quantity Refills Last Filled Start Date End Date sodium bicarbonate 650 mg tablet Take 2 tablets (1,300 mg total) by mouth 3 (three) times a day 540 tablet 3 02/09/2022 3 documented in this encounter Progress Notes * Shree Gutiérrez MD - 02/09/2022 9:30 AM CDT Images from the original note were not included. Subjective/Objective Patient ID: Julius Andrade is a 71 y.o. male. Chief Complaint Chronic Kidney Disease [...] fluid resuscitation. Last known serum creatinine of 1.9. Has not obtained any recent labs. GI issues stable Review of Systems Constitutional: Negative for [...] Current Outpatient Medications Medication Sig Dispense Refill ??? acetaminophen (TYLENOL) 500 mg tablet 500 mg every 8 (eight) hours ??? albuterol HFA (PROVENTIL HFA,VENTOLIN HFA,PROAIR HFA) 90 mcg/actuation inhaler every 8 (eight) hours ??? Asacol HD 800 mg EC tablet Take 800 mg by mouth 2 (two) times a day ??? aspirin 81 mg enteric coated tablet Take 81 mg by mouth daily ??? buPROPion XL (WELLBUTRIN XL) 150 mg 24 hr tablet Take 1 tablet by mouth daily ??? carvediloL (COREG) 3.125 mg tablet Take 3.125 mg by mouth daily ??? cholecalciferol (VITAMIN D-3) 5,000 unit tablet 5,000 Units daily ??? cholestyramine (QUESTRAN) 4 gram powder Take 4 g by mouth nightly as needed ??? cilostazol (PLETAL) 50 mg tablet cilostazol 50 mg tablet TAKE 1 TABLET TWICE A DAY ??? clopidogrel (PLAVIX) 75 mg tablet Take 75 mg by mouth daily ??? cyanocobalamin, vitamin B-12, 5,000 mcg tablet, sublingual 5,000 mcg daily ??? denosumab (Prolia) 60 mg/mL syringe Inject 1 mL by subcutaneous route as directed for 180 days. ??? fluticasone propionate (FLONASE) 50 mcg/actuation nasal spray Administer 1 spray into each nostril daily ??? folic acid (FOLVITE) 1 mg tablet Take 1 mg by mouth daily ??? levothyroxine (SYNTHROID) 125 mcg tablet Take 125 mcg by mouth daily ??? pravastatin (PRAVACHOL) 10 mg tablet Take 10 mg by mouth daily ??? triamcinolone (KENALOG) 0.1 % cream 1 application as needed ??? VIAGRA 50 mg tablet Take 50 mg by mouth as needed ??? vit C,L-Rc-uklhx-lutein-zeaxan (PreserVision AREDS-2) 250-90-40-1 mg capsule every 12 hours ??? influenza trivalent 7236-9201 (Fluad 1029-5264, 65 yr up,,PF,) 45 mcg (15 mcg x 3)/0.5 mL syringe Fluad 65yr up(PF)45 mcg(15 mcgx3)/0.5 mL intramuscular syringe ADM 0.5ML IM UTD (Patient not taking: Reported on 02/09/2022) ??? sodium bicarbonate 650 mg tablet Take 2 tablets (1,300 mg total) by mouth 3 (three) times a vui997 tablet 3 No current facility-administered medications for this visit. Allergies Allergen Reactions ??? Gluten ??? Lactose Stomach upset Vitals BP 138/82 (BP Location: Left arm, Patient Position: Sitting) Pulse 79 Temp 36.6 ??C (97.8 ??F) (Temporal) Ht 162.6 cm (5' 4 ) Wt 65.3 kg (144 lb) BMI 24.72 kg/m?? Physical Exam Constitutional: Thin but in [...] chronic kidney disease (HCC) (N18.32) (Primary) - CBC with auto differential; Standing - Comprehensive metabolic panel; Future - PTH; Future - Magnesium; Future - Phosphorus; Future Metabolic acidosis (E87.2) Crohn's disease of small intestine with other complication (HCC) (K50.018) ASVD (arteriosclerotic vascular disease) (I70.90) Other orders - sodium bicarbonate 650 mg tablet; Take 2 tablets (1,300 mg total) by mouth 3 (three) times a day CKD following episodes of acute kidney failure. Serum creatinine had been remaining stable. Apparently has not obtained any recent labs. Reordering today but he has also been out of his sodium bicarbonate which I refilled and I instructed him to take this routinely for several days before obtaininghis lab so we can see where his bicarbonate is on the prescribed dose. documented in this encounter Plan of Treatment Scheduled Orders Name Type Priority Associated Diagnoses Orde r Schedule CBC with auto differential Lab Routine Stage 3b chronic kidney disease 2 Occurrences starting 02/09/2022 until 02/09/2023 Comprehensive metabolic panel Lab Routine Stage 3b chronic kidney disease Expected: 02/09/2022, Expires: 02/09/2023 PTH Lab Routine Stage 3b chronic kidney disease Expected: 02/09/2022, Expires: 02/09/2023 Magnesium Lab Routine Stage 3b chronic kidney disease Expected: 02/09/2022, Expires: 02/09/2023 Phosphorus Lab Routine Stage 3b chronic kidney disease Expected: 02/09/2022, Expires: 02/09/2023 documented as of this encounter Visit Diagnoses Diagnosis Stage 3b chronic kidney disease (HCC)- Primary Metabolic acidosis Acidosis Crohn's disease of small intestine with other complication (HCC) ASVD (arteriosclerotic vascular disease) documented in this encounter Discontinued Medications Medication Sig Discontinue Reason Start Date End Da te carvediloL (COREG) 3.125 mg tablet carvedilol 3.125 mg tablet 02/09/2022 mesalamine (Asacol HD) 800 mg EC tablet Asacol HD 800 mg tablet,delayed release TAKE 1 TABLET TWICE A DAY 02/09/2022 traMADoL (ULTRAM) 50 mg tablet tramadol 50 mg tablet TAKE 1 TABLET BY MOUTH EVERY 6 HOURS NEEDED FOR PAIN 02/09/2022 ciprofloxacin (CIPRO) 250 mg tablet ciprofloxacin 250 mg tablet TAKE 1 TABLET BY MOUTH TWICE DAILY 02/09/2022 sodium bicarbonate 650 mg tablet Take 1,300 mg by mouth 3 (three) times a day Reorder 06/30/2021 02/09/2022 documented as of this encounter Care Teams Impact Retail Service Merchandiser Relationship Specialty Start Date End Date Nickie Negron MD [address] [facility] [address] [place] [address] PCP - General 01/13/19 documented as of this encounter
--- OUTSIDE RECORDS SUMMARY | 2024-10-27 10:55 | XMS_ITS | Encounter Summary ---
Author Organization [facility] Address [address] [place] [address] Care Team Providers Care Grey Roll Worker Name Role Phone Nickie Negron MD Primary Care Provider +1- [phone] Reason for Visit * Reason Comments Follow-up 2wk Review CTA , Carotid stenosis Encounter Details Date Type Department Care Team (Late st Contact Info) Description 02/15/2021 9:15 AM CDT Office Visit [facility] Vascular and Vein Surgery [address] [place] [address] Solomon Martinez MD [address] [place] [address] [address] [place] [address] 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 Dx); Mixed hyperlipidemia; Moderate essential hypertension; Occlusion of left carotid artery Social History Tobacco Use Types Packs/Day Years [...] on file 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 male Visit Date: 02/15/2021 Chief Complaint Chief Complaint Patient presents with ??? Follow-up 2wk Review CTA , Carotid stenosis HPI 70-year-old male multiple medical problems being seen for potential carotid artery occlusion. Patient overall is doing very well denies having any interim neurological symptoms consistent with TIA, stroke or amaurosis. Recent CT angiogram was performed. Duplex suggested distal left common carotid artery occlusion. Patient has lower extremity arterial occlusive disease having undergone endovascular intervention. Denies recurrence claudication symptoms overall is doing well is compliant with his medications. Past Medical History: Diagnosis Date ??? Celiac sprue ??? Chronic kidney disease, stage III (moderate) ??? Crohn's colitis (CMS/HCC) ??? DJD (degenerative joint disease) ??? Hypokalemia ??? Hypomagnesemia ??? Hypophosphatemia Past Surgical History: Procedure Laterality Date ??? ATHERECTOMY Left 05/04/2015 popliteal ??? COLONOSCOPY W/ BIOPSIES 04/13/2016 ??? NECK SURGERY 10/22/2011 Neck fracture Family History Problem Relation Age of Onset ??? Cerebral aneurysm Father Family history of cerebral aneurysm - (Added by TW Zan) ??? Hypertension Other Social History Socioeconomic History ??? Marital status: Single Spouse name: None ??? Number of children: None ??? Years of education: None ??? Highest education level: None Occupational History ??? None Tobacco Use ??? Smoking status: Former Smoker ??? Smokeless tobacco: Never Used Substance and Sexual Activity ??? Alcohol use: Not Currently ??? Drug use: Not Currently ??? Sexual activity: None Other Topics Concern ??? None Social History Narrative ??? None Social Determinants of Health Financial Resource Strain: ??? Difficulty of Paying Living Expenses: Food Insecurity: ??? Worried About Running Out of Food in the Last Year: ??? Ran Out of Food in the Last Year: Transportation Needs: ??? Lack of Transportation (Medical): ??? Lack of Transportation (Non-Medical): Physical Activity: ??? Days of Exercise per Week: ??? Minutes of Exercise per Session: Stress: ??? Feeling of Stress : Social Connections: ??? Frequency of Communication with Friends and Family: ??? Frequency of Social Gatherings with Friends and Family: ??? Attends [employer] Services: ??? Active Member of Clubs or Organizations: ??? Attends Club or Organization Meetings: ??? Marital Status: Intimate Partner Violence: ??? Fear of Current or Ex-Partner: ??? Emotionally Abused: ??? Physically Abused: ??? Sexually Abused: ROS Constitutional: No change in appetite. No recent weight loss. No fevers chills or sweats. HEENT: No trouble swallowing. No tinnitus. Eyes: No visual disturbances Respiratory: No shortness of breath. No cough or sputum production. No wheezing. Cardiovascular: No chest pain. No palpitations. Gastrointestinal: No abdominal pain. No nausea vomiting or diarrhea. Genitourinary: No dysuria. No hematuria. Extremities: No claudication. No rest pain. No lower extremity ulcerations or infections. No significant edema. Musculoskeletal: No joint pains. No back pain. Neurologic: No dizziness. No syncope. No weakness. Skin: No rashes. No discoloration. Hematologic: no bleeding Psychiatric: no anxiety, no behavioral changes, no mood swings PE Constitutional: Alert and oriented HEENT: Head atraumatic and normocephalic Neck is supple No carotid bruits Extraocular movements full, sclerae anicteric Chest: Effort normal. Breath sounds normal. Cardiovascular: S1 and S2 are normal. No murmurs rubs or gallops appreciated. Abdominal: Soft, nontender, no masses. Extremities: Palpable femoral, popliteal, dorsalis pedis and posterior tibial pulses bilaterally. No significant edema. No ulcerations. Musculoskeletal: Normal range of motion. Neurologic: Cranial nerves 2-12 intact. Strength and sensation intact bilaterally. Skin: Warm and dry. No rashes. No discoloration. Psychiatric: Normal mood and affect. Behavior normal. Judgment normal. IMAGING STUDIES CT angiogram carotid arteries visualized reviewed by myself. 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 Diagnoses and all orders for this visit: 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) Assessment & Plan: Patient continues to do well. No residual and or recurrence symptoms. Continue 6 month duplex surveillance. Continue anti-platelet therapy. Mixed hyperlipidemia Assessment & Plan: Cholesterol is controlled. Continue medical therapy. Moderate essential hypertension Assessment & Plan: Hypertension controlled. Continue medical therapy Occlusion of left carotid artery Assessment & Plan: Patient is asymptomatic left distal common carotid artery occlusion. Retrograde filling of the anterior carotid artery via the external carotid artery noted. No surgical intervention warranted. Continue risk factor modification 6 month duplex. Solomon Martinez MD documented in this encounter Miscellaneous Notes * Assessment & Plan Note - Solomon Martinez MD - 02/22/2021 10:13 AM CDT Associated Problem(s): Occlusion of left carotid artery Patient is asymptomatic left distal common carotid artery occlusion. Retrograde filling of the anterior carotid artery via the external carotid artery noted. No surgical intervention warranted. Continue risk factor modification 6 month duplex. * Assessment & Plan Note - Solomon Martinez MD - 02/22/2021 10:13 AM CDT Associated Problem(s): Moderate essential hypertension Hypertension controlled. Continue medical therapy * Assessment & Plan Note - Solomon Martinez MD - 02/22/2021 10:13 AM CDT Associated Problem(s): Hyperlipidemia Cholesterol is controlled. Continue medical therapy. * Assessment & Plan Note - Solomon Martinez MD - 02/22/2021 10:12 AM CDT Associated Problem(s): Claudication of left lower extremity (HCC) Patient continues to do well. No residual and or recurrence symptoms. Continue 6 month duplex surveillance. Continue anti-platelet therapy. documented in this encounter Plan of Treatment Not on file documented as of this encounter Visit Diagnoses Diagnosis Claudication of left lower extremity (HCC)- Primary Mixed hyperlipidemia Moderate essential hypertension Occlusion of left carotid artery Occlusion and stenosis of carotid artery without mention of cerebral infarction documented in this encounter Care Teams Grey Roll Worker Relationship Specialty Start Date End Date Nickie Negron MD [address] [address] PCP - General 01/13/19 documented as of this encounter
--- OUTSIDE RECORDS SUMMARY | 2024-10-27 10:55 | XMS_ITS | Encounter Summary ---
Author Organization [facility] Address [address] [place] [address] Care Team Providers Care Vp Strategic Partnerships Name Role Phone Nickie Negron MD Primary Care Provider [phone]- [phone] Reason for Visit * Reason Comments Chronic Kidney Disease - Follow Up Visit Encounter Details Date Type Department Care Team (Late st Contact Info) Description 08/11/2021 9:30 AM CDT Office Visit 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 Gender Identity Not on file Sexual Orientation Not on file documented as of this encounter Last Filed Vital Signs Vital Sign Reading Time Taken Comments Blood Pressure 134/78 08/11/2021 9:11 AM CDT Pulse 90 08/11/2021 9:11 AM CDT Temperature 37.3 ??C (99.1 ??F) 08/11/2021 9:11 AM CD T Respiratory Rate - - Oxygen Saturation - - Inhaled Oxygen Concentration - - Weight 62.1 kg (137 lb) 08/11/2021 9:11 AM CDT Height 162.6 cm (5' 4 ) 08/11/2021 9:11 AM CDT Body Mass Index 23.52 08/11/2021 9:11 AM CDT documented in this encounter Progress Notes * Shree Gutiérrez MD - 08/11/2021 9:30 AM CDT Images from the original note were not included. Subjective/Objective Patient ID: Julius Andrade is a 70 y.o. male. Chief Complaint Chronic Kidney Disease [...] He responded again to IV fluid resuscitation. Most recent serum creatinine stable at 1.9. Stable GI issues at present Review of Systems Constitutional: Negative for appetite [...] Medications Medication Sig Dispense Refill ??? acetaminophen (TYLENOL EXTRA STRENGTH) 500 mg tablet 500 mg every 8 (eight) hours ??? albuterol HFA (PROAIR HFA) 90 mcg/actuation inhaler every 8 (eight) hours ??? aspirin 81 mg enteric coated tablet ??? buPROPion XL (WELLBUTRIN XL) 150 mg 24 hr tablet Take 1 tablet by mouth daily ??? cholecalciferol (VITAMIN D-3) 5,000 unit tablet 5,000 Units daily ??? cholestyramine (QUESTRAN) 4 gram powder cholestyramine (with sugar) 4 gram oral powder MIX 1 SCOOP IN FLUID AND DRINK DAILY IN THE EVENING NEEDED ??? cilostazol (PLETAL) 50 mg tablet cilostazol [...] fluticasone propionate (FLONASE) 50 mcg/actuation nasal spray fluticasone propionate 50 mcg/actuation nasal spray,suspension daily ??? folic acid (FOLVITE) 1 mg tablet TK 1 T PO QD ??? influenza trivalent 8820-4000 (Fluad 9698-2512, 65 yr up,,PF,) 45 mcg (15 mcg x 3)/0.5 mL syringe Fluad 65yr up(PF)45 mcg(15 mcgx3)/0.5 mL intramuscular syringe ADM 0.5ML IM UTD ??? levothyroxine (Synthroid) 125 mcg tablet Take 125 mcg by mouth daily ??? pravastatin (PRAVACHOL) 10 mg tablet Take 10 mg by mouth daily ??? triamcinolone (KENALOG) 0.1 % cream ??? VIAGRA 50 mg tablet Take 50 mg by mouth as needed ??? vit C,G-Rz-rekni-lutein-zeaxan (PreserVision AREDS-2) 250-90-40-1 mg capsule every 12 hours No current facility-administered medications for this visit. Allergies Allergen Reactions ??? Gluten ??? Lactose Stomach upset Vitals BP 134/78 (BP Location: Right arm, Patient Position: Sitting) Pulse 90 Temp 37.3 ??C (99.1 ??F) (Skin) Ht 162.6 cm (5' 4 ) Wt 62.1 kg (137 lb) BMI 23.52 kg/m?? Physical Exam Constitutional: Thin but in [...] (Primary) - Comprehensive metabolic panel; Future - CBC with auto differential; Standing - Phosphorus; Future - Magnesium; Future - PTH; Future Metabolic acidosis (E87.2) Crohn's disease of small intestine with other complication (HCC) (K50.018) ASVD (arteriosclerotic vascular disease) (I70.90) CKD following episodes of acute kidney failure. Serum creatinine remaining stable although does represent fairly significant renal insufficiency given his degree of muscle mass. GI issues stable withno recent episodes of severe volume depletion. Plan to repeat labs with his next scheduled blood draw documented in this encounter Plan of Treatment Scheduled Orders Name Type Priority Associated Diagnoses Orde r Schedule Comprehensive metabolic panel Lab Routine Stage 3b chronic kidney disease Expected: 08/11/2021, Expires: 08/11/2022 CBC with auto differential Lab Routine Stage 3b chronic kidney disease 2 Occurrences starting 08/11/2021 until 08/11/2022 Phosphorus Lab Routine Stage 3b chronic kidney disease Expected: 08/11/2021, Expires: 08/11/2022 Magnesium Lab Routine Stage 3b chronic kidney disease Expected: 08/11/2021, Expires: 08/11/2022 PTH Lab Routine Stage 3b chronic kidney disease Expected: 08/11/2021, Expires: 08/11/2022 documented as of this encounter Visit Diagnoses Diagnosis Stage 3b chronic kidney disease (HCC)- Primary Metabolic acidosis Acidosis Crohn's disease of small intestine with other complication (HCC) ASVD (arteriosclerotic vascular disease) documented in this encounter Care Teams Vp Strategic Partnerships Relationship Specialty Start Date End Date Nickie Negron MD [address] [facility] [address] [address] [place] [address] PCP - General 01/13/19 documented as of this encounter
--- OUTSIDE RECORDS SUMMARY | 2024-10-27 10:55 | XMS_ITS | Encounter Summary ---
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 Gender Identity Not on file Sexual Orientation Not on file documented as of this encounter Plan of Treatment Not on file documented as of this encounter Procedures Procedure Name Priority Date/Time Associated Diagnosis Comments BASIC METABOLIC PANEL Routine 02/04/2021 documented in this encounter Results * Basic metabolic panel (02/04/2021) Blood specimen (specimen) us Historical Provider LAB BLOOD ORDERABLES Shruthi l Result documented in this encounter Visit Diagnoses Not on filedocumented in this encounter Care Teams Salad Maker Relationship Specialty Start Date End Date Nickie Negron MD [address] [address] [place] [address] PCP - General 01/13/19 documented as of this encounter
--- OUTSIDE RECORDS SUMMARY | 2024-10-27 10:55 | XMS_ITS | Encounter Summary ---
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 Gender Identity Not on file Sexual Orientation Not on file documented as of this encounter Plan of Treatment Not on file documented as of this encounter Procedures Procedure Name Priority Date/Time Associated Diagnosis Comments CBC WITH AUTO DIFFERENTIAL Routine 01/19/2021 documented in this encounter Results * CBC with auto differential (01/19/2021) Blood specimen (specimen) Historical Provider LAB BLOOD ORDERABLES Shruthi l Result documented in this encounter Visit Diagnoses Not on filedocumented in this encounter Care Teams Sales Account Executive Relationship Specialty Start Date End Date Nickie Negron MD [address] [facility] [address] [place] [address] PCP - General 01/13/19 documented as of this encounter
--- OUTSIDE RECORDS SUMMARY | 2024-10-27 10:55 | XMS_ITS | Encounter Summary ---
Author Organization 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 Gender Identity Not on file Sexual Orientation Not on file documented as of this encounter Last Filed Vital Signs Vital Sign Reading Time Taken Comments Blood Pressure 146/83 06/03/2022 9:52 AM CDT Pulse 73 06/03/2022 9:52 AM CDT Temperature 36.8 ??C (98.2 ??F) 06/03/2022 9:52 AM CD T Respiratory Rate 16 06/03/2022 9:52 AM CDT Oxygen Saturation 98% 06/03/2022 9:52 AM CDT Inhaled Oxygen Concentration - - Weight 67.9 kg (149 lb 11.1 oz) 06/03/2022 9:52 AM CDT Height 162.6 cm (5' 4 ) 06/03/2022 9:52 AM CDT Body Mass Index 25.69 06/03/2022 9:52 AM CDT documented in this encounter Discharge Instructions * Discharge Instructions* Sabas Hurtado PA - 06/03/2022 10:10 AM CDT Follow-up as recommended is mandatory. You have received emergency care only at your visit today. This is not a substitute for ongoing care, further evaluation and treatment and therefore follow-up as directed is not optional but mandatory You MUST follow up for further evaluation of all incidental abnormal radiographic and laboratory findings, Have your physician obtain records from this visit and address all the incidental abnormal findings. This may include final results of lab testing, cultures, final x-ray reports which may not have been available during the time of the visit. Return immediately for any new symptoms, worsening of symptoms, or persistent symptoms * Attachments The following attachments cannot be sent through Care Everywhere. * Sciatica (General Information) (Ecuadorean) documented in this encounter Medications at Time [...] mg total) by mouth nightly 05/19/2019 vit C,D-Sk-wgqee-lut ein-zeaxan (PreserVision AREDS-2) 250-90-40-1 mg capsule Take 1 capsule by mouth every 12 hours albuterol HFA (PROVENTIL HFA,VENTOLIN HFA,PROAIR HFA) 90 mcg/actuation inhaler Inhale 2 puffs every 8 (eight) hours as needed fluticasone propionate (FLONASE) 50 mcg/actuation nasal spray Administer 1 spray into each nostril daily as needed TiZANidine (ZANAFLEX) 4 mg capsule Take 1 capsule (4 mg total) by mouth 3 (three) times a day for 7 days 21 capsule 06/03/2022 2 aspirin 81 mg enteric coated tablet Take [...] a day as needed 2 influenza trivalent 2491-3425 (Fluad 2773-6822, 65 yr up,,PF,) 45 mcg (15 mcg x 3)/0.5 mL syringe Fluad 65yr up(PF)45 mcg(15 mcgx3)/0.5 mL intramuscular syringe ADM 0.5ML IM UTD 2 levothyroxine (SYNTHROID) 125 mcg tablet Take 1 tablet (125 mcg total) by mouth metal mover before breakfast 4 predniSONE (DELTASONE) 20 mg tablet Take 3 tablets (60 mg) by mouth daily for 3 days, THEN 2 tablets (40 mg) daily for 3 days, THEN 1 tablet (20 mg) daily for 4 days. 19 tablet 06/03/2022 2 sodium bicarbonate 650 mg tablet Take 2 [...] Refills Last Filled Start Date End Date predniSONE (DELTASONE) 20 mg tablet Take 3 tablets (60 mg) by mouth daily for 3 days, THEN 2 tablets (40 mg) daily for 3 days, THEN 1 tablet (20 mg) daily for 4 days. 19 tablet 06/03/2022 2 TiZANidine (ZANAFLEX) 4 mg capsule Take 1 capsule (4 mg total) by mouth 3 (three) times a day for 7 days 21 capsule 06/03/2022 2 documented in this encounter Discharge Disposition Disposition Code Departure Means Destination Discharge to home or self care documented in this encounter ED Notes * Wanda Alvarez RN - 06/03/2022 10:01 AM CDT I've got sciatic issues. Pt arrives to ED with complaints of sciatic pain to left-sided leg, beginning yesterday. Pain rated at an 8/10 on a pain scale. Denies any other acute complaints such as nausea, vomiting, diarrhea, constipation, fevers, chills, cough, or any recent injury. * Sabas Hurtado PA - 06/03/2022 10:00 AM CDT HPI Chief Complaint Patient presents with ??? Leg Pain HPI 10:10 AM Julius Andrade is a 71 y.o. male presenting to the ED with c/c of back pain since last night. Pt reports hx of sciatic nerve pain for many years and states he has to come in for treatmentoccasionally. Pain currently in the L lower back radiating down the L leg to the L buttock and thigh. No known injury or trauma. Took baby ASA today with temporary improvement in pain. No cough/fever/chills, shortness of breath, nausea/vomiting, change in chronic diarrhea. Denies numbness/paresthesias or bladder/bowel incontinence. Patient History: Past Medical History: Diagnosis Date ??? Celiac [...] Frequency of Binge Drinking: Not on file Current Facility-Administered Medications: ??? predniSONE (DELTASONE) tablet 60 mg, 60 mg, oral, Once ??? tiZANidine (ZANAFLEX) tablet 4 mg, 4 mg, oral, Once Current Outpatient Medications: ??? acetaminophen (TYLENOL) 500 mg tablet ??? albuterol HFA (PROVENTIL HFA,VENTOLIN HFA,PROAIR HFA) 90 mcg/actuation inhaler ??? Asacol HD 800 mg EC tablet ??? aspirin 81 mg enteric coated tablet ??? buPROPion XL (WELLBUTRIN XL) 150 mg 24 hr tablet ??? carvediloL (COREG) 3.125 mg tablet ??? cholecalciferol (VITAMIN D-3) 5,000 unit tablet ??? cholestyramine (QUESTRAN) 4 gram powder ??? cilostazol (PLETAL) 50 mg tablet ??? clopidogrel (PLAVIX) 75 mg tablet ??? cyanocobalamin, vitamin B-12, 5,000 mcg tablet, sublingual ??? denosumab (Prolia) 60 mg/mL syringe ??? diclofenac sodium (VOLTAREN) 1 % gel ??? fluticasone propionate (FLONASE) 50 mcg/actuation nasal spray ??? folic acid (FOLVITE) 1 mg tablet ??? influenza trivalent 5558-4687 (Fluad 2252-8170, 65 yr up,,PF,) 45 mcg (15 mcg x 3)/0.5 mL syringe ??? levothyroxine (SYNTHROID) 125 mcg tablet ??? pravastatin (PRAVACHOL) 10 mg tablet ??? predniSONE (DELTASONE) 20 mg tablet ??? sodium bicarbonate 650 mg tablet ??? TiZANidine (ZANAFLEX) 4 mg capsule ??? triamcinolone (KENALOG) 0.1 % cream ??? VIAGRA 50 mg tablet ??? vit C,Z-Hb-fifis-lutein-zeaxan (PreserVision AREDS-2) 250-90-40-1 mg capsule Review of Systems Review of Systems Constitutional: Negative for fever. HENT: Negative for congestion. Eyes: Negative for redness. Respiratory: Negative for cough. Cardiovascular: Negative for chest pain. Gastrointestinal: Negative for abdominal pain, diarrhea and vomiting. Genitourinary: Negative for dysuria. Musculoskeletal: Positive for back pain. Negative for myalgias. Neurological: Negative for weakness. Psychiatric/Behavioral: Negative for confusion. Physical Exam ED Triage Vitals [06/03/22 0952] Temp Pulse Resp BP SpO2 36.8 ??C (98.2 ??F) 73 16 146/83 98 % Temp src Heart Rate Source Patient Position BP Location FiO2 (%) Oral Monitor Sitting Right arm -- Height Height Method Weight Weight Method 1.626 m (5' 4 ) Stated 67.9 kg (149 lb 11.1 oz) Standing scale Physical Exam Vitals and nursing note reviewed. Constitutional: General: He is not in acute distress. Appearance: Normal appearance. He is not ill-appearing or toxic-appearing. HENT: Head: Normocephalic and atraumatic. Right Ear: External ear normal. Left Ear: External ear normal. Nose: Nose normal. Mouth/Throat: Mouth: Mucous membranes are moist. Eyes: Extraocular Movements: Extraocular movements intact. Pupils: Pupils are equal, round, and reactive to light. Cardiovascular: Rate and Rhythm: Normal rate and regular rhythm. Heart sounds: Normal heart sounds. No murmur heard. No friction rub. No gallop. Pulmonary: Effort: Pulmonary effort is normal. Breath sounds: Normal breath sounds. Abdominal: General: Bowel sounds are normal. There is no distension. Palpations: Abdomen is soft. There is no mass. Tenderness: There is no abdominal tenderness. There is no guarding. Musculoskeletal: General: Tenderness (with muscle spasm L lumbar back) present. No swelling or deformity. Normal range of motion. Skin: General: Skin is warm and dry. Capillary Refill: Capillary refill takes less than 2 seconds. Neurological: General: No focal deficit present. Mental Status: He is alert and oriented to person, place, and time. Psychiatric: Mood and Affect: Mood normal. Procedures MDM Labs Reviewed - No data to display No orders to display BP 146/83 (BP Location: Right arm, Patient Position: Sitting) Pulse 73 Temp 36.8 ??C (98.2 ??F)(Oral) Resp 16 Ht 162.6 cm (5' 4 ) Wt 67.9 kg (149 lb 11.1 oz) SpO2 98% BMI 25.69 kg/m?? ED Course: Pt reports pain consistent with hx of sciatica. No injury. No red flags and afebrile. Symptomatic treatment with steroids and muscle relaxers. Historical creat elevated for antiinflammatories. Pt to follow up with PCP. Clinical Impression: Sciatica of left side Sabas Hurtado PA 06/03/22 1011 Cosigned by Zahra Rice DO at 06/03/2022 10:22 AM CDT Associated attestation - Zahra Rice DO - 06/03/2022 10:22 AM CDT This patient was independently evaluated by the [facility]. I was available for immediate consultation andin-person evaluation if required but was not asked to do so. documented in this encounter Plan of Treatment Not on file documented as of this encounter Visit Diagnoses Diagnosis Sciatica of left side- Primary documented in this encounter Administered Medications Inactive Administered Medications - up to 3 most recent administrations Medication Order MAR Action Action Date Dose Rate Site predniSONE (DELTASONE) tablet 60 mg 60 mg, oral, Once, On 06/03/22 at 1005, For 1 dose Given 06/03/2022 11:41 AM CDT 60 mg tiZANidine (ZANAFLEX) tablet 4 mg 4 mg, oral, Once, On 06/03/22 at 1100, For 1 dose, Administer on an empty stomach Given 06/03/2022 11:39 AM CDT 4 mg documented in this encounter Active and Recently Administered Medications Times are shown in CDT. Scheduled Medication Order 06/01/2022 06/02/2022 06/03/2022 predniSONE (DELTASONE) tablet 60 mg (COMPLETED) 60 mg, oral, Once, On 06/03/22 at 1005, For 1 dose 1141 (Given - Provid er: Luanne Haider RN) tiZANidine (ZANAFLEX) tablet 4 mg (COMPLETED) 4 mg, oral, Once, On 06/03/22 at 1100, For 1 dose, Administer on an empty stomach 1139 (Given - Provid er: Luanne Haider RN) documented in this encounter Care Teams A P Manager Relationship Specialty Start Date End Date Nickie Negron MD [address] [facility] [address] [place] [address] PCP - General 01/13/19 documented as of this encounter
--- OUTSIDE RECORDS SUMMARY | 2024-10-27 10:55 | XMS_ITS | Encounter Summary ---
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 11/20/2016 2 fluticasone propion-salmeter ol (ADVAIR DISKUS) 250-50 mcg/dose diskus inhaler Inhale 1 puff 2 (two) times a day 1 influenza trivalent [id number] (Fluad 3564-6076, 65 yr up,,PF,) 45 mcg (15 mcg x 3)/0.5 mL syringe Fluad 65yr up(PF)45 mcg(15 mcgx3)/0.5 mL intramuscular syringe ADM 0.5ML IM UTD 2 levothyroxine (SYNTHROID) 125 mcg tablet Take 1 tablet (125 mcg total) by mouth medical/surgery registered nurse before breakfast 4 lisinopriL (PRINIVIL,ZESTRI L) 10 mg tablet Take 10 mg by mouth daily 10/31/2020 1 mesalamine (ASACOL HD) 800 mg EC tablet mesalamine 800 mg tablet,delayed release TAKE 1 TABLET TWICE A DAY 1 triamcinolone (KENALOG) 0.1 % cream 1 application as needed 04/27/2020 2 VIAGRA 50 mg tablet Take 1 tablet (50 mg total) by mouth as needed 07/13/2019 4 vitamins A,C,N-ndco-oosyp r (PRESERVISION AREDS) 14,320-226-200 [id number] capsule 2 (two) times a day 1 documented as of this encounter Plan of Treatment Not on file documented as of this encounter Procedures Procedure Name Priority Date/Time Associated Diagnosis Comments MRI ABDOMEN W WO CONTRAST 12/29/2020 12:00 AM POWER EQUIPMENT MECHANICS INSTRUCTOR MRI PELVIS W WO CONTRAST 12/29/2020 12:00 AM POWER EQUIPMENT MECHANICS INSTRUCTOR documented in this encounter Results * MRI Pelvis W WO Contrast (12/29/2020 12:00 AM POWER EQUIPMENT MECHANICS INSTRUCTOR) Anatomical Region Laterality Modality Pelvis N/A Magnetic Resonan ce 04/28/2021 10:4 7 PM CDT Addenda Addendum by Julius Billings MD on 04/28/2021 10:49 PM CDT ADDENDUM: ??This addendum report supersedes the original report dated 12/29/2020 This addendum is issue to correct the technique section. ??The technique section should state: TECHNIQUE: MRI of the abdomen and pelvis performed without and with intravenous contrast according to the MR enterography protocol. ??All images stored on PACS. THIS IS AN ELECTRONICALLY VERIFIED FINAL REPORT 04/28/2021 10:49 PM - Electronically signed by Julius BAILEY D: ??04/28/2021 10:49 PM T: Report ID: [id number] Reading Location: ??[id number] Narrative 12/29/2020 12:44 PM POWER EQUIPMENT MECHANICS INSTRUCTOR Patient Name: JULIUS ANDRADE ?Ordering Dr: Kiesha Jernigan I ANP ?? D.O.B: 1950 ? Exam Date: 12/29/20 ?? 0000 ?? Age: 70 ?Sex: Male ? MR#: [id number] ?? Loc: ? RADIOLOGY REPORT ?? Order #[id number] ?? Magnetic Resonance Imaging ? MRI Pelvis W ?? W/O Contrast ? Signed ?? EXAM DESCRIPTION: ?? MRI Abdomen W ?? W/O Contrast; MRI Pelvis W ?? W/O Contrast ? REASON FOR STUDY: ?? CROHNS DISEASE ? TECHNIQUE: ??MRI of the abdomen performed ??without and with intravenous ?? contrast according to the MR enterography protocol. All images stored on PACS. ? CONTRAST TYPE/DOSE: ?? 12 mL Dotarem injected via ??left antecubital fossa, 22 ?? gauge IV ? COMPARISON: ?? None available. ??Cross correlation made to prior CT abdomen and ?? pelvis on 11/03/2019 ? FINDINGS: ? LOWER CHEST: ??No effusion. ??A small hiatal hernia has slightly increased in ?? size. ? LIVER: ??Normal size. ??No mass. ??A 1 cm cyst is again seen in the liver dome, ?? unchanged. ? GALLBLADDER: No stones, wall thickening or pericholecystic fluid. ? BILE DUCTS: ??No intrahepatic or extrahepatic ductal dilatation. ? SPLEEN: ??Normal size. ??No focal lesions. ? PANCREAS: ??No masses. No adjacent inflammation or peripancreatic fluid ?? collections. Pancreatic duct not dilated ? ADRENALS: ??Normal. ? KIDNEYS/URINARY TRACT: ??Bilateral kidneys are decreased in size but stable. ??A ?? few tiny cysts are seen in the kidneys. ??No hydronephrosis or hydroureter. ? Symmetric enhancement. ? GI: ??Postsurgical change of partial right colectomy with ileocolonic ?? reanastomosis again seen in the right abdomen. ??A 7-8 cm segment of ?? stacey-terminal ileum demonstrates severe stricturing with submucosal fatty ?? deposition and striated pattern of enhancement, compatible with acute on ?? chronic inflammation. ??The appearance and length of involvement is similar to ?? prior CT. ??Of note, the rectosigmoid colon is decompressed with mild ?? submucosal fatty deposition seen in the sigmoid colon, and the remainder of ?? the colon appears somewhat featureless. ??There is no hyperenhancement of the ?? colonic wall. ? PERITONEUM: ??No ascites. ? RETROPERITONEUM: ??No mass or adenopathy. ? VASCULATURE: ??No abdominal aortic aneurysm. ? MUSCULOSKELETAL: ??Surgical screws are seen in the left femoral head. ? OTHER: ??No other abnormality. ? IMPRESSION: ??1. ??Postsurgical change of partial right colectomy with ileocolic ?? reanastomosis in the right abdomen. ??A segment of neoterminal ileum is ?? strictured with mild acute on chronic inflammation, compatible with Crohn's ?? disease involvement and similar in appearance to prior CT. ??No other skip ?? lesions identified. ? 2. ??Decompressed rectosigmoid colon with mild submucosal fatty deposition. ? The remainder of the colon is somewhat featureless. ??These findings are ?? nonspecific, either normal or sequela of chronic colitis. ??There is no ?? evidence of active colitis on the current study. ??If indicated, this may be ?? correlated with colonoscopy. ? THIS IS AN ELECTRONICALLY VERIFIED FINAL REPORT ?? 12/29/2020 12:44 PM - Electronically signed by Julius Billings ?? Julius Billings ? ML ?? D: ??12/29/2020 12:44 PM ?? T: ? Report ID: [id number] ?? Reading Location: ??[id number] ? REPORT ELECTRONICALLY SIGNED IN OTHER VENDOR SYSTEM ?? Resulting Agency Comment O Procedure Note Julius Billings MD - 12/29/2020 Patient Name: JULIUS ANDRADE Dr: Kiesha Jernigan D.O.B: 1950 Exam Date: 12/29/20 0000 Age: 70 Sex: Male MR#: [id number] Loc: RADIOLOGY REPORT Order #[id number] Magnetic Resonance Imaging MRI Pelvis W W/O Contrast Signed EXAM DESCRIPTION: MRI Abdomen W W/O Contrast; MRI Pelvis W W/OContrast REASON FOR STUDY: CROHNS DISEASE TECHNIQUE: MRI of the abdomen performed without and with intravenous contrast according to the MR enterography protocol. All images stored [email or web address]. CONTRAST TYPE/DOSE: 12 mL Dotarem injected via left antecubital fossa,22 gauge IV COMPARISON: None available. Cross correlation made to prior CT abdomenand pelvis on 11/03/2019 FINDINGS: LOWER CHEST: No effusion. A small hiatal hernia has slightly increasedin size. LIVER: Normal size. No mass. A 1 cm cyst is again seen in the liverdome, unchanged. GALLBLADDER: No stones, wall thickening or pericholecystic fluid. BILE DUCTS: No intrahepatic or extrahepatic ductal dilatation. SPLEEN: Normal size. No focal lesions. PANCREAS: No masses. No adjacent inflammation or peripancreatic fluid collections. Pancreatic duct not dilated ADRENALS: Normal. KIDNEYS/URINARY TRACT: Bilateral kidneys are decreased in size butstable. A few tiny cysts are seen in the kidneys. No hydronephrosis orhydroureter. Symmetric enhancement. GI: Postsurgical change of partial right colectomy with ileocolonic reanastomosis again seen in the right abdomen. A 7-8 cm segment of stacey-terminal ileum demonstrates severe stricturing with submucosal fatty deposition and striated pattern of enhancement, compatible with acute on chronic inflammation. The appearance and length of involvement issimilar to prior CT. Of note, the rectosigmoid colon is decompressed with mild submucosal fatty deposition seen in the sigmoid colon, and the remainderof the colon appears somewhat featureless. There is no hyperenhancement ofthe colonic wall. PERITONEUM: No ascites. RETROPERITONEUM: No mass or adenopathy. VASCULATURE: No abdominal aortic aneurysm. MUSCULOSKELETAL: Surgical screws are seen in the left femoral head. OTHER: No other abnormality. IMPRESSION: 1. Postsurgical change of partial right colectomy withileocolic reanastomosis in the right abdomen. A segment of neoterminal ileum is strictured with mild acute on chronic inflammation, compatible withCrohn's disease involvement and similar in appearance to prior CT. No other skip lesions identified. 2. Decompressed rectosigmoid colon with mild submucosal fattydeposition. The remainder of the colon is somewhat featureless. These findings are nonspecific, either normal or sequela of chronic colitis. There is no evidence of active colitis on the current study. If indicated, this maybe correlated with colonoscopy. THIS IS AN ELECTRONICALLY VERIFIED FINAL REPORT 12/29/2020 12:44 PM - Electronically signed by Julius BAILEY T: Report ID: [id number] Reading Location: [id number] REPORT ELECTRONICALLY SIGNED IN OTHER VENDOR SYSTEM Kiesha Jernigan NP IMSaira MRI PROCEDURES Edited R esult - Final * MRI Abdomen W WO Contrast (12/29/2020 12:00 AM POWER EQUIPMENT MECHANICS INSTRUCTOR) Anatomical Region Laterality Modality Body N/A Magnetic Resonan ce 12/29/2020 12:2 4 PM POWER EQUIPMENT MECHANICS INSTRUCTOR Narrative 12/29/2020 12:44 PM POWER EQUIPMENT MECHANICS INSTRUCTOR Patient Name: JULIUS ANDRADE ?Ordering Dr: Kiesha Jernigan I ANP ?? D.O.B: 1950 ? Exam Date: 12/29/20 ?? 0000 ?? Age: 70 ?Sex: Male ? MR#: [id number] ?? Loc: ? RADIOLOGY REPORT ?? Order #[id number] ?? Magnetic Resonance Imaging ? MRI Abdomen W ?? W/O Contrast ? Signed ?? EXAM DESCRIPTION: ?? MRI Abdomen W ?? W/O Contrast; MRI Pelvis W ?? W/O Contrast ? REASON FOR STUDY: ?? CROHNS DISEASE ? TECHNIQUE: ??MRI of the abdomen performed ??without and with intravenous ?? contrast according to the MR enterography protocol. All images stored on PACS. ? CONTRAST TYPE/DOSE: ?? 12 mL Dotarem injected via ??left antecubital fossa, 22 ?? gauge IV ? COMPARISON: ?? None available. ??Cross correlation made to prior CT abdomen and ?? pelvis on 11/03/2019 ? FINDINGS: ? LOWER CHEST: ??No effusion. ??A small hiatal hernia has slightly increased in ?? size. ? LIVER: ??Normal size. ??No mass. ??A 1 cm cyst is again seen in the liver dome, ?? unchanged. ? GALLBLADDER: No stones, wall thickening or pericholecystic fluid. ? BILE DUCTS: ??No intrahepatic or extrahepatic ductal dilatation. ? SPLEEN: ??Normal size. ??No focal lesions. ? PANCREAS: ??No masses. No adjacent inflammation or peripancreatic fluid ?? collections. Pancreatic duct not dilated ? ADRENALS: ??Normal. ? KIDNEYS/URINARY TRACT: ??Bilateral kidneys are decreased in size but stable. ??A ?? few tiny cysts are seen in the kidneys. ??No hydronephrosis or hydroureter. ? Symmetric enhancement. ? GI: ??Postsurgical change of partial right colectomy with ileocolonic ?? reanastomosis again seen in the right abdomen. ??A 7-8 cm segment of ?? stacey-terminal ileum demonstrates severe stricturing with submucosal fatty ?? deposition and striated pattern of enhancement, compatible with acute on ?? chronic inflammation. ??The appearance and length of involvement is similar to ?? prior CT. ??Of note, the rectosigmoid colon is decompressed with mild ?? submucosal fatty deposition seen in the sigmoid colon, and the remainder of ?? the colon appears somewhat featureless. ??There is no hyperenhancement of the ?? colonic wall. ? PERITONEUM: ??No ascites. ? RETROPERITONEUM: ??No mass or adenopathy. ? VASCULATURE: ??No abdominal aortic aneurysm. ? MUSCULOSKELETAL: ??Surgical screws are seen in the left femoral head. ? OTHER: ??No other abnormality. ? IMPRESSION: ??1. ??Postsurgical change of partial right colectomy with ileocolic ?? reanastomosis in the right abdomen. ??A segment of neoterminal ileum is ?? strictured with mild acute on chronic inflammation, compatible with Crohn's ?? disease involvement and similar in appearance to prior CT. ??No other skip ?? lesions identified. ? 2. ??Decompressed rectosigmoid colon with mild submucosal fatty deposition. ? The remainder of the colon is somewhat featureless. ??These findings are ?? nonspecific, either normal or sequela of chronic colitis. ??There is no ?? evidence of active colitis on the current study. ??If indicated, this may be ?? correlated with colonoscopy. ? THIS IS AN ELECTRONICALLY VERIFIED FINAL REPORT ?? 12/29/2020 12:44 PM - Electronically signed by Julius Billings ?? Julius Billings ? ML ?? D: ??12/29/2020 12:44 PM ?? T: ? Report ID: [id number] ?? Reading Location: ??[id number] ? REPORT ELECTRONICALLY SIGNED IN OTHER VENDOR SYSTEM ?? Resulting Agency Comment O Procedure Note Julius Billings MD - 12/29/2020 Patient Name: RAYMONDJULIUS Dr: Kiesha Jernigan D.O.B: 1950 Exam Date: 12/29/20 0000 Age: 70 Sex: Male MR#: [id number] Loc: RADIOLOGY REPORT Order #[id number] Magnetic Resonance Imaging MRI Abdomen W W/O Contrast Signed EXAM DESCRIPTION: MRI Abdomen W W/O Contrast; MRI Pelvis W W/OContrast REASON FOR STUDY: CROHNS DISEASE TECHNIQUE: MRI of the abdomen performed without and with intravenous contrast according to the MR enterography protocol. [facility] CONTRAST TYPE/DOSE: 12 mL Dotarem injected via left antecubital fossa,22 gauge IV COMPARISON: None available. Cross correlation made to prior CT abdomenand pelvis on 11/03/2019 FINDINGS: LOWER CHEST: No effusion. A small hiatal hernia has slightly increasedin size. LIVER: Normal size. No mass. A 1 cm cyst is again seen in the liverdome, unchanged. GALLBLADDER: No stones, wall thickening or pericholecystic fluid. BILE DUCTS: No intrahepatic or extrahepatic ductal dilatation. SPLEEN: Normal size. No focal lesions. PANCREAS: No masses. No adjacent inflammation or peripancreatic fluid collections. Pancreatic duct not dilated ADRENALS: Normal. KIDNEYS/URINARY TRACT: Bilateral kidneys are decreased in size butstable. A few tiny cysts are seen in the kidneys. No hydronephrosis orhydroureter. Symmetric enhancement. GI: Postsurgical change of partial right colectomy with ileocolonic reanastomosis again seen in the right abdomen. A 7-8 cm segment of stacey-terminal ileum demonstrates severe stricturing with submucosal fatty deposition and striated pattern of enhancement, compatible with acute on chronic inflammation. The appearance and length of involvement issimilar to prior CT. Of note, the rectosigmoid colon is decompressed with mild submucosal fatty deposition seen in the sigmoid colon, and the remainderof the colon appears somewhat featureless. There is no hyperenhancement ofthe colonic wall. PERITONEUM: No ascites. RETROPERITONEUM: No mass or adenopathy. VASCULATURE: No abdominal aortic aneurysm. MUSCULOSKELETAL: Surgical screws are seen in the left femoral head. OTHER: No other abnormality. IMPRESSION: 1. Postsurgical change of partial right colectomy withileocolic reanastomosis in the right abdomen. A segment of neoterminal ileum is strictured with mild acute on chronic inflammation, compatible withCrohn's disease involvement and similar in appearance to prior CT. No other skip lesions identified. 2. Decompressed rectosigmoid colon with mild submucosal fattydeposition. The remainder of the colon is somewhat featureless. These findings are nonspecific, either normal or sequela of chronic colitis. There is no evidence of active colitis on the current study. If indicated, this maybe correlated with colonoscopy. THIS IS AN ELECTRONICALLY VERIFIED FINAL REPORT 12/29/2020 12:44 PM - Electronically signed by Julius BAILEY T: Report ID: [id number] Reading Location: [id number] REPORT ELECTRONICALLY SIGNED IN OTHER VENDOR SYSTEM Kiesha Jernigan DIGITAL PRE PRESS OPERATOR IMG MRI PROCEDURES Final Re sult documented in this encounter Visit Diagnoses Not on filedocumented in this encounter Care Teams Net Developer Software Engineer C Relationship Specialty Start Date End Date Nickie Negron MD [address] [facility] [address] [place] [address] PCP - General 01/13/19 documented as of this encounter
--- OUTSIDE RECORDS SUMMARY | 2024-10-27 10:55 | XMS_ITS | Encounter Summary ---
Author Organization [facility] Address [address] [place] [address] Care Team Providers Care Hr Advisor Name Role Phone Nickie Negron MD Primary Care Provider +1- [phone] Encounter Details Date Type Department Care Team (Late st Contact Info) Description 04/04/[address] 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 Gender Identity Not on file Sexual Orientation Not on file documented as of this encounter Plan of Treatment Not on file documented as of this encounter Procedures Procedure Name Priority Date/Time Associated Diagnosis Comments BASIC METABOLIC PANEL Routine 04/03/2021 documented in this encounter Results * Basic metabolic panel (04/03/2021) Blood specimen (specimen) us Historical Provider LAB BLOOD ORDERABLES Shruthi l Result documented in this encounter Visit Diagnoses Not on filedocumented in this encounter Care Teams Hr Advisor Relationship Specialty Start Date End Date Nickie Negron MD [address] [facility] [address] [place] [address] PCP - General 01/13/19 documented as of this encounter
--- OUTSIDE RECORDS SUMMARY | 2024-10-27 10:55 | XMS_ITS | Encounter Summary ---
Author Organization [facility] Address [address] [place] [address] Care Team Providers Care Glue Bone Crusher Name Role Phone Nickie Negron MD Primary Care Provider +1- [phone] Encounter Details Date Type Department Care Team (Late st Contact Info) Description 03/02/[address] 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 Lab orders sent to Dr. Negron's office. * Telephone Encounter - Shree Gutiérrez MD - 03/02/2021 1:09 PM CDT Potassium mildly elevated. Would have him discontinue lisinopril and monitor blood pressure and repeat a BMP in 1 month. Thank you documented in this encounter Plan of Treatment Scheduled Orders Name Type Priority Associated Diagnoses Orde r Schedule Basic metabolic panel Lab Routine Stage 3 chronic kidney disease, unspecified whether stage 3a or 3b CKD Expected: 03/02/2021, Expires: 03/02/2022 documented as of this encounter Visit Diagnoses Diagnosis Stage 3 chronic kidney disease, unspecified whether stage 3a or 3b CKD (HCC)- Primary documented in this encounter Discontinued Medications Medication Sig Discontinue Reason Start Date End Da te lisinopriL (PRINIVIL,ZESTRIL) 10 mg tablet Take 10 mg by mouth daily 10/31/2020 03/02/2021 documented as of this encounter Care Teams Glue Bone Crusher Relationship Specialty Start Date End Date Nickie Negron MD [address] [address] PCP - General 01/13/19 documented as of this encounter
--- OUTSIDE RECORDS SUMMARY | 2024-10-27 10:55 | XMS_ITS | Encounter Summary ---
Author Organization [facility] Address [address] [facility] [place] [address] Care Team Providers Care White Sugar Supervisor Name Role Phone Nickie Negron MD Primary Care Provider +1- [phone] Reason for Visit * Reason Comments Chronic Kidney Disease Encounter Details Date Type Department Care Team (Late st Contact Info) Description 02/02/2021 9:30 AM CDT Office Visit [facility] Nephrology [address] [facility] [address] [place] [phone] Shree Gutiérrez MD [facility] [address] [id number] Stage 3b chronic kidney disease (Primary Dx); Metabolic acidosis; Crohn's disease of small intestine with other complication (CMS/HCC); ASVD (arteriosclerotic vascular disease) Social History Tobacco [...] on file 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[employer] Gender Identity Not on file Sexual Orientation Not on file documented as of this encounter Last Filed Vital Signs Vital Sign Reading Time Taken Comments Blood Pressure 121/80 02/02/2021 9:25 AM CDT Pulse 89 02/02/2021 9:25 AM CDT Temperature 36.6 ??C (97.8 ??F) 02/02/2021 9:25 AM CD T Respiratory Rate - - Oxygen Saturation - - Inhaled Oxygen Concentration - - Weight 64.6 kg (142 lb 6.4 oz) 02/02/2021 9:25 A M CDT Height 162.6 cm (5' 4 ) 02/02/2021 9:25 AM CDT Body Mass Index 24.44 02/02/2021 9:25 AM CDT documented in this encounter Progress Notes * Shree Gutiérrez MD - 02/02/2021 9:30 AM CDT Images from the original [...] resuscitation. Most recent serum creatinine stable at 2.0 potassium was 5.1. Serum bicarb was 23. Hemoglobin unremarkable. He has been doing fairly well with mild GI issues at present. He is scheduled for a CT a ofthe carotids for further evaluation Review of Systems Constitutional: Negative for appetite [...] 1 T PO QD ??? influenza trivalent 0209-0881 (Fluad 1811-8232, 65 yr up,,PF,) 45 mcg (15 mcg x 3)/0.5 mL syringe Fluad 65yr up(PF)45 mcg(15 mcgx3)/0.5 mL intramuscular syringe ADM 0.5ML IM UTD ??? levothyroxine (Synthroid) 125 mcg tablet Take 125 mcg by mouth daily ??? lisinopriL (PRINIVIL,ZESTRIL) 10 mg tablet Take 10 mg by mouth daily ??? pravastatin (PRAVACHOL) 10 mg tablet Take 10 mg by mouth daily ??? triamcinolone (KENALOG) 0.1 % cream ??? VIAGRA 50 mg tablet Take 50 mg by mouth as needed ??? vit C,K-Vh-yvpeo-lutein-zeaxan (PreserVision AREDS-2) 250-90-40-1 mg capsule every 12 hours No current facility-administered medications for this visit. Allergies Allergen Reactions ??? Gluten ??? Lactose Stomach upset Vitals BP 121/80 (BP Location: Left arm, Patient Position: Sitting) Pulse 89 Temp 36.6 ??C (97.8 ??F) (Skin) Ht 162.6 cm (5' 4 ) Wt 64.6 kg (142 lb 6.4 oz) BMI 24.44 kg/m?? Physical Exam Constitutional: Thin but in [...] this visit: Stage 3b chronic kidney disease (N18.32) (Primary) - Basic metabolic panel; Future Metabolic acidosis (E87.2) Crohn's disease of small intestine with other complication (CMS/HCC) (K50.018) ASVD (arteriosclerotic vascular disease) (I70.90) CKD following episodes of acute kidney failure. Most recent serum creatinine fairly stable and consistent with prior baseline. GI symptoms are not overly problematic at this time. Blood pressure wellcontrolled. Serum bicarb unremarkable at 23. He is scheduled for a CTA of the carotids given prior f indings on duplex. We discussed the potential risk of contrast nephropathy at length. He understands there is a low but possible risk of significant worsening of his kidney function. Discussed with Dr. Martinez and plans are for pre and post IV hydration. I will have the patient hold his lisinopril prior to the study and we will recheck labs a few days afterwards and then resume if all is stable. documented in this encounter Plan of Treatment Scheduled Orders Name Type Priority Associated Diagnoses Orde r Schedule Basic metabolic panel Lab Routine Stage 3b chronic kidney disease Expected: 02/02/2021, Expires: 02/02/2022 documented as of this encounter Visit Diagnoses Diagnosis Stage 3b chronic kidney disease (HCC)- Primary Metabolic acidosis Acidosis Crohn's disease of small intestine with other complication (HCC) ASVD (arteriosclerotic vascular disease) documented in this encounter Discontinued Medications Medication Sig Discontinue Reason Start Date End Da te vitamins A,C,R-rfuu-itrwmy (PRESERVISION AREDS) 14,320-226-200 cyrv-kf-kwxq capsule 2 (two) times a day 021 fluticasone propion-salmeterol (ADVAIR DISKUS) 250-50 mcg/dose diskus inhaler Inhale 1 puff 2 (two) times a day 02/02/2021 mesalamine (ASACOL HD) 800 mg EC tablet mesalamine 800 mg tablet,delayed release TAKE 1 TABLET TWICE A DAY 02/02/2021 documented as of this encounter Care Teams White Sugar Supervisor Relationship Specialty Start Date End Date Nickie Negron MD [address] [facility] [address] [place] [address] PCP - General 01/13/19 documented as of this encounter
--- OUTSIDE RECORDS SUMMARY | 2024-10-27 10:55 | XMS_ITS | Encounter Summary ---
Author Organization [facility] Address [address] [place] [address] Care Team Providers Care Cataract Lens Generator Name Role Phone Nickie Negron MD Primary Care Provider +1- [phone] Encounter Details Date Type Department Care Team (Late st Contact Info) Description 02/28/2022 Telephone [facility] Vascular and Vein Surgery [address] [facility] [address] [facility] [address] [place] [address] Solomon Martinez MD [address] [facility] [address] [place] [address] Social History Tobacco Use Types [...] on file 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 They want him to follow up in 1 yr. He is scheduled for 2022 not for today. Sending out new reminder letters for the patient. * Telephone Encounter - Margarita Jacobsen MA - 02/28/2022 11:41 AM CDT Patient called stating he just received his appt letter in the mail today. So he missed his appt that was scheduled for Solomon Martinez today. Please rescheduled carotid & arterial doppler US andov-visit for same day. Call patient once rescheduled. documented in this encounter Plan of Treatment Not on file documented as of this encounter Visit Diagnoses Not on filedocumented in this encounter Care Teams Cataract Lens Generator Relationship Specialty Start Date End Date Nickie Negron MD [address] [address] PCP - General 01/13/19 documented as of this encounter
--- OUTSIDE RECORDS SUMMARY | 2024-10-27 10:55 | XMS_ITS | Encounter Summary ---
Author Organization [facility] Address [address] [place] [address] Care Team Providers Care Inbound Sales Consultant Name Role Phone Nickie Negron MD Primary Care Provider +1- [phone] Reason for Visit * Reason Comments Follow-up carotid stenosis per dR. Barron * Consultation (Routine) - Closed Specialty Diagnoses / Procedures Referred By Roula t Referred To Contact Vascular Surgery Diagnoses Carotid artery stenosis, unilateral Nickie Negron MD [address] [facility] [address] [place] [address] Phone: tel: fax: Solomon Martinez MD [address] [place] [address] [address] [facility] [place] [address] Phone: tel: fax: Referral ID Status Reason Start Date Expiration Date V isits Requested Visits Authorized [id number] Closed Specialty Services Required 01/20/2021 02/19/2022 1 1 Encounter Details Date Type Department Care Team (Late st Contact Info) Description 02/01/2021 9:15 AM CDT Office Visit [facility] Vascular and Vein Surgery [address] [facility] [address] [place] [address] Solomon Martinez MD [address] [place] [address] [address] [place] [place] [address] Bilateral carotid artery occlusion (Primary Dx); Carotid artery stenosis, unilateral; Claudication of left lower extremity (CMS/HCC); Moderate essential hypertension Social History Tobacco Use [...] on file 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 Gender Identity Not on file Sexual Orientation Not on file documented as of this encounter Last Filed Vital Signs Vital Sign Reading Time Taken Comments Blood Pressure 149/88 02/01/2021 9:23 AM CDT Pulse 77 02/01/2021 9:23 AM CDT Temperature - - Respiratory Rate - - Oxygen Saturation - - Inhaled Oxygen Concentration - - Weight 61.2 kg (135 lb) 02/01/2021 9:23 AM CDT Height 162.6 cm (5' 4 ) 02/01/2021 9:23 AM CDT Body Mass Index 23.17 02/01/2021 9:23 AM CDT documented in this encounter Progress Notes * Solomon Martinez MD - 02/01/2021 9:15 AM CDT Images from the original note were not included. Patient ID: Julius Andrade is a 70 y.o. male Visit Date: 02/01/2021 Chief Complaint Chief Complaint Patient presents with ??? Follow-up carotid stenosis per dR. Barron HPI 70-year-old male former smoker with a history of lower extremity arterial occlusive disease having undergone prior interventional therapy for disabling claudication here today for evaluation. Patientis doing very well in regards to his lower extremities. Denies recurrence claudication symptoms. Hehas no pain with exertion. He is compliant with his medications has no current complaints. 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 He has no stroke symptoms. Past Medical History: Diagnosis Date ??? Celiac [...] TW Conv) ??? Hypertension Other Social History Socioeconomic History [...] Gatherings with Friends and Family: ??? Attends Sabianist Services: ??? Active Member of Clubs or [...] affect. Behavior normal. Judgment normal. IMAGING STUDIES Carotid duplex visualized reviewed by myself shows occluded left distal common carotid artery. Normal study on the right. Diagnoses and all orders for this visit: Bilateral carotid artery occlusion (Primary) - US Carotids Duplex Bilateral; Future Carotid artery stenosis, unilateral Assessment & Plan: Conflicting duplex reports. Most recent duplex shows occlusion left distal common carotid artery. Will obtain CT angiogram for more thorough evaluation determine whether surgical intervention is required. Orders: - Ambulatory referral to Vascular Surgery Claudication of left lower extremity ([facility]/HCC) Assessment & Plan: Patient continues to do well with no recurrence claudication symptoms. Continue anti-platelet therapy follow-up 6 months for duplex surveillance. Moderate essential hypertension Assessment & Plan: Hypertension controlled. Continue medical management. Solomon Martinez MD documented in this encounter Miscellaneous Notes * Assessment & Plan Note - Solomon Martinez MD - 02/05/2021 12:46 PM CDT Associated Problem(s): Moderate essential hypertension Hypertension controlled. Continue medical management. * Assessment & Plan Note - Solomon Martinez MD - 02/05/2021 12:46 PM CDT Associated Problem(s): Carotid artery stenosis, unilateral Conflicting duplex reports. Most recent duplex shows occlusion left distal common carotid artery. Will obtain CT angiogram for more thorough evaluation determine whether surgical intervention is required. * Assessment & Plan Note - Solomon Martinez MD - 02/05/2021 12:44 PM CDT Associated Problem(s): Claudication of left lower extremity (HCC) Patient continues to do well with no recurrence claudication symptoms. Continue anti-platelet therapy follow-up 6 months for duplex surveillance. documented in this encounter Plan of Treatment Not on file documented as of this encounter Visit Diagnoses Diagnosis Bilateral carotid artery occlusion- Primary Occlusion and stenosis of carotid artery without mention of cerebral infarction Carotid artery stenosis, unilateral Claudication of left lower extremity (HCC) Moderate essential hypertension documented in this encounter Historical Medications * This list may reflect changes made after this encounter. vit C,X-Qo-zjpxm-lute in-zeaxan (PreserVision AREDS-2) 250-90-40-1 mg capsule Take 1 capsule by mouth every 12 hours lisinopriL (PRINIVIL,ZESTRIL ) 10 mg tablet Take 10 mg by mouth daily 10/31/2020 03/02/2021 added in this encounter Orders Outpatient Referral Count Last Ordered Date Fir st Ordered Date AMB REFERRAL TO VASCULAR SURGERY 1 02/02/20 21 documented in this encounter Care Teams Inbound Sales Consultant Relationship Specialty Start Date End Date Nickie Negron MD [address] [facility] [address] [place] [address] PCP - General 01/13/19 documented as of this encounter
--- OUTSIDE RECORDS SUMMARY | 2024-10-27 10:55 | XMS_ITS | Encounter Summary ---
Author Organization [facility] Address [address] [place] [address] Care Team Providers Care Lesson Instructor Name Role Phone Nickie Negron MD Primary Care Provider +1- [phone] Reason for Referral * Diagnostic Imaging (Routine) - Closed Specialty Diagnoses / Procedures Referred By Contac t Referred To Contact Diagnoses Bilateral carotid artery occlusion Procedures US Carotids Duplex Bilateral Zac Parada NP [address] [facility] [address] [facility] [place] [address] Phone: tel: fax: [facility] Building [address] [place] [phone] Referral ID Status Reason Start Date Expiration Date Visits Re quested Visits Authorized [id number] Closed 08/17/2021 09/16/2022 1 1 Reason for Visit * Diagnostic Imaging (Routine) - Closed Specialty Diagnoses / Procedures Referred By Contac t Referred To Contact Diagnoses Bilateral carotid artery occlusion Procedures US Carotids Duplex Bilateral Zac Parada NP [address] [facility] [address] [facility] [place] [address] Phone: tel: fax: [facility] [address] [place] [phone] Referral ID Status Reason Start Date Expiration Date Visits Re quested Visits Authorized [id number] Closed 08/17/2021 09/16/2022 1 1 Encounter Details Date Type Department Care Team (Latest Contact Info) Description 02/21/2022 9:02 AM CDT - 02/21/2022 11:59 PM CDT Hospital Encounter [facility] Office Building [address] [place] [id number] Bilateral carotid artery occlusion Discharge Disposition: Discharge [...] on file 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 Gender Identity Not on file Sexual Orientation [...] mg total) by mouth nightly 05/19/2019 vit C,D-Nm-jaqon-lut ein-zeaxan (PreserVision AREDS-2) 250-90-40-1 mg capsule Take [...] a day as needed 2 influenza trivalent 2780-4771 (Fluad 0601-5989, 65 yr up,,PF,) 45 mcg (15 mcg x 3)/0.5 mL syringe Fluad 65yr up(PF)45 mcg(15 mcgx3)/0.5 mL intramuscular syringe ADM 0.5ML IM UTD 2 levothyroxine (SYNTHROID) 125 mcg tablet Take 1 tablet (125 mcg total) by mouth photographer before breakfast 4 sodium bicarbonate 650 mg [...] Schedule Routine, Read Routine (OP Routine) 02/21/2022 10:30 AM CDT Bilateral carotid artery occlusion documented in this encounter Results * US Carotids Duplex Bilateral (02/21/2022 10:30 AM CDT) Anatomical Region Laterality Modality Vascular Bilateral Ultrasound 02/21/2022 Narrative 02/24/2022 8:57 AM CDT [employer] Job ID: [id number] [employer] Document ID: [id number] Dictated date/time: [id number] CAROTID DUPLEX REASON FOR EXAMINATION Carotid stenosis. COMMENTS ON RIGHT Peak systolic velocity of CCA of 73, ICA of 101. ??Smooth heterogenous plaque seen in proximal ICA. ??ECA velocity of 304. ??Antegrade flow noted vertebral artery, velocity of 58. COMMENTS ON LEFT Peak systolic velocity of CCA is 15. ??Distal ICA is occluded, heavily calcified. ??Retrograde flow into the internal carotid artery via the external carotid artery, velocity of 34. ??Antegrade flow noted in the left vertebral artery, velocity of 76. OVERALL IMPRESSION 1. Stenosis 16% to 49% right internal carotid artery. ??Chronic occlusion of the distal left common carotid artery with retrograde filling of the internal carotid artery. 2. Antegrade flow noted bilateral vertebral arteries. Job ID/Internal Job ID: ??[id number] Zac Parada JUNIOR ESTIMATOR [facility] US PROCEDURES Final Resul t documented in this encounter Visit Diagnoses Diagnosis Bilateral carotid artery occlusion Occlusion and stenosis of carotid artery without mention of cerebral infarction documented in this encounter Care Teams Lesson Instructor Relationship Specialty Start Date End Date Nickie Negron MD [address] [place] [address] PCP - General 01/13/19 documented as of this encounter
--- OUTSIDE RECORDS SUMMARY | 2024-10-27 10:55 | XMS_ITS | Encounter Summary ---
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 Gender Identity Not on file Sexual Orientation [...] mg total) by mouth nightly 05/19/2019 vit C,K-Bk-oiytj-lut ein-zeaxan (PreserVision AREDS-2) 250-90-40-1 mg capsule Take [...] (two) times a day 1 influenza trivalent 3940-7897 (Fluad 6382-9643, 65 yr up,,PF,) 45 mcg (15 mcg x 3)/0.5 mL syringe Fluad 65yr up(PF)45 mcg(15 mcgx3)/0.5 mL intramuscular syringe ADM 0.5ML IM UTD 2 levothyroxine (SYNTHROID) 125 mcg tablet Take 1 tablet (125 mcg total) by mouth dough panner before breakfast 4 lisinopriL (PRINIVIL,ZESTRI L) 10 [...] by mouth as needed 07/13/2019 4 vitamins A,C,W-wodq-hkkwt r (PRESERVISION AREDS) 14,320-226-200 msdg-aw-qnsp capsule 2 (two) times a day 1 documented as of this encounter Plan of Treatment Not on file documented as of this encounter Procedures Procedure Name Priority Date/Time Associated Diagnosis Comments US CAROTIDS DUPLEX BILATERAL 02/01/2021 12:00 AM CDT documented in this encounter Results * US Carotids Duplex Bilateral (02/01/2021 12:00 AM CDT) Anatomical Region Laterality Modality Vascular Bilateral Ultrasound 02/03/2021 9:24 PM CDT Narrative 02/03/2021 11:16 PM CDT ? Patient Name: JULIUS ANDRADE ? MR#: [id number] ?? [id number] ? Status: REG CLI ? D.O.B: 1950 Age: ??70 ?Sex: Male ? ADM/SER Dt: 02/01/21 ?Disch Dt: ? LOC: H.MCU.MB1 ? Ordering Phy: Solomon Martinez MD ? Order #[id number] ? Carotid Ultrasound Bilateral ?? Solomon Martinez MD ? Signed ?? DATE OF SERVICE: ?? 02/01/2021 ? TYPE OF REPORT: ??Carotid duplex. ? REASON FOR EXAM: ??I65.23. ? FINDINGS: ? COMMENTS ON THE RIGHT: ??Peak systolic velocity in the CCA is 73, ICA is 79. ??Smooth heterogenous plaque seen in the proximal ICA. ??ECA velocity of 193. ??Antegrade flow noted in the right vertebral artery with a velocity of 61. ? COMMENTS ON THE LEFT: ??Left distal common carotid artery appears occluded. ??Retrograde flow from the external carotid artery fills the internal carotid artery with a velocity of 27. ??Antegrade flow noted in the left vertebral artery with a velocity of 39. ? OVERALL IMPRESSION: ? 1. ??A 16% to 49% stenosis, right internal carotid artery. ??Occlusion of the distal common carotid artery with retrograde filling of the internal carotid artery via external carotid artery branch. ?? 2. ??Antegrade flow noted in the bilateral vertebral arteries. ? NTS ? Job: [id number] ? Dictated By: Solomon Martinez MD ?? Dictated For: Solomon ??MD Juan ? <Electronically signed by Solomon Martinez MD> ? 02/03/21 2336 ?? Resulting Agency Comment O Procedure Note Solomon Martinez MD - 02/03/2021 Patient Name: FAYEKAYLAJULIUS #: [id number] Status: REG CLI D.O.B: 1950 Age: 70Sex: Male ADM/SER Dt: 02/01/21 Disch Dt[facility] Order[facility] Phy: Solomon Martinez MD Order #[id number] Carotid Ultrasound Bilateral Solomon Martinez MD Signed DATE OF SERVICE: 02/01/2021 TYPE OF REPORT: Carotid duplex. REASON FOR EXAM: I65.23. FINDINGS: COMMENTS ON THE RIGHT: Peak systolic velocity in the CCA is 73, ICA is79. Smooth heterogenous plaque seen in the proximal ICA. ECA velocity of 193. Antegrade flownoted in the right vertebral artery with a velocity of 61. COMMENTS ON THE LEFT: Left distal common carotid artery appearsoccluded. Retrograde flow from the external carotid artery fills the internal carotid artery with avelocity of 27. Antegrade flow noted in the left vertebral artery with a velocity of 39. OVERALL IMPRESSION: 1. A 16% to 49% stenosis, right internal carotid artery. Occlusion ofthe distal common carotid artery with retrograde filling of the internal carotid artery via externalcarotid artery branch. 2. Antegrade flow noted in the bilateral vertebral arteries. NTS Job: [id number] Dictated By: Solomon Martinez MD Dictated For: Solomon Martinez MD <Electronically signed by Solomon Martinez MD> 02/03/21 1013 us Solomon Martinez MD IMG US PROCEDURES Final Re sult documented in this encounter Visit Diagnoses Not on filedocumented in this encounter Care Teams Day Care Aide Relationship Specialty Start Date End Date Nickie Negron MD [address] [facility] [address] [place] [address] PCP - General 01/13/19 documented as of this encounter
--- OUTSIDE RECORDS SUMMARY | 2024-10-27 10:55 | XMS_ITS | Encounter Summary ---
Author Organization [facility] Medical Group Address [address] [address] Care Team Providers Care Third Cook Name Role Phone Nickie Negron MD Primary Care Provider [phone]- [phone] Reason for Referral * Diagnostic Imaging (Routine) - Closed Specialty Diagnoses / Procedures Referred By Roula mcmillan Referred To Contact Diagnoses Bilateral carotid artery occlusion Procedures US Carotids Duplex Bilateral Zac Parada NP [address] [facility] [address] [place] [address] [facility] [place] [address] Phone: tel: fax: [facility] Medical Office Building [address] [place] [phone] Referral ID Status Reason Start Date Expiration Date Visits Re quested Visits Authorized [id number] Closed 08/17/2021 09/16/2022 1 1 * Diagnostic Imaging (Routine) - Closed Specialty Diagnoses / Procedures Referred By Roula mcmillan Referred To Contact Diagnoses Atherosclerosis of [place] artery of both lower extremities with intermittent claudication (HCC) Procedures US Arterial Doppler Lower Extremity Bilateral Zac Parada NP [address] [facility] [address] [place] [address] [facility] [place] [address] Phone: tel: fax: [facility] Medical Office Building [address] [place] [phone] Referral ID Status Reason Start Date Expiration Date Visits Re quested Visits Authorized [id number] Closed 08/17/2021 09/16/2022 1 1 Reason for Visit * Reason Comments Follow-up 6m Carotid stenosis Encounter Details Date Type Department Care Team (Late st Contact Info) Description 08/17/2021 9:30 AM CDT Office Visit [facility] Medical [facility] Vascular and Vein Surgery [address] 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 Subjective/Objective Patient ID: Julius Andrade is a 70 y.o. male. Chief Complaint Carotid stenosis, PVD History of Present Illness 70-year-old male with history of bilateral carotid stenosis and lower extremity arterial occlusive disease returns today for routine follow-up. Patient states he has been doing well in the interim and denies any worsening claudication of either lower extremity, ischemic rest pain or ischemic ulcerations. He also denies any focal or lateralizing neurological deficits in the interim. He has been compliant with ongoing risk factor modifications has no complaints concerns at this time. Current Outpatient Medications: ??? acetaminophen (TYLENOL EXTRA STRENGTH) 500 mg tablet, 500 mg every 8 (eight) hours, Disp: , Rfl: ??? albuterol HFA (PROAIR HFA) 90 mcg/actuation inhaler, every 8 (eight) hours, Disp: , Rfl: ??? Asacol HD 800 mg EC tablet, , Disp: , Rfl: ??? aspirin 81 mg enteric coated tablet, , Disp: , Rfl: ??? buPROPion XL (WELLBUTRIN XL) 150 mg 24 hr tablet, Take 1 tablet by mouth daily, Disp: , Rfl: ??? carvediloL (COREG) 3.125 mg tablet, carvedilol 3.125 mg tablet, Disp: , Rfl: ??? carvediloL (COREG) 3.125 mg tablet, , Disp: , Rfl: ??? cholecalciferol (VITAMIN D-3) 5,000 unit tablet, 5,000 Units daily , Disp: , Rfl: ??? cholestyramine (QUESTRAN) 4 gram powder, cholestyramine (with sugar) 4 gram oral powder MIX 1 SCOOP IN FLUID AND DRINK DAILY IN THE EVENING NEEDED, Disp: , Rfl: ??? cilostazol (PLETAL) 50 mg tablet, cilostazol 50 mg tablet TAKE 1 TABLET TWICE A DAY, Disp: , Rfl: ??? ciprofloxacin (CIPRO) 250 mg tablet, ciprofloxacin 250 mg tablet TAKE 1 TABLET BY MOUTH TWICE DAILY, Disp: , Rfl: ??? clopidogrel (PLAVIX) 75 mg tablet, Take 75 mg by mouth daily , Disp: , Rfl: ??? cyanocobalamin, vitamin B-12, 5,000 mcg tablet, sublingual, 5,000 mcg daily , Disp: , Rfl: ??? denosumab (Prolia) 60 mg/mL syringe, Inject 1 mL by subcutaneous route as directed for 180 days., Disp: , Rfl: ??? fluticasone propionate (FLONASE) 50 mcg/actuation nasal spray, fluticasone propionate 50 mcg/actuation nasal spray,suspension daily, Disp: , Rfl: ??? folic acid (FOLVITE) 1 mg tablet, TK 1 T PO QD, Disp: , Rfl: ??? influenza trivalent [id number] (Fluad [id number], 65 yr up,,PF,) 45 mcg (15 mcg x 3)/0.5 mL syringe, Fluad 2018- 65yr up(PF)45 mcg(15 mcgx3)/0.5 mL intramuscular syringe ADM 0.5ML IM UTD, Disp: ,Rfl: ??? levothyroxine (Synthroid) 125 mcg tablet, Take 125 mcg by mouth daily , Disp: , Rfl: ??? mesalamine (Asacol HD) 800 mg EC tablet, Asacol HD 800 mg tablet,delayed release TAKE 1 TABLET TWICE A DAY, Disp: , Rfl: ??? pravastatin (PRAVACHOL) 10 mg tablet, Take 10 mg by mouth daily , Disp: , Rfl: ??? sodium bicarbonate 650 mg tablet, , Disp: , Rfl: ??? traMADoL (ULTRAM) 50 mg tablet, tramadol 50 mg tablet TAKE 1 TABLET BY MOUTH EVERY 6 HOURS NEEDED FOR PAIN, Disp: , Rfl: ??? triamcinolone (KENALOG) 0.1 % cream, , Disp: , Rfl: ??? VIAGRA 50 mg tablet, Take 50 mg by mouth as needed , Disp: , Rfl: ??? vit C,V-Gq-mijnt-lutein-zeaxan (PreserVision AREDS-2) 250-90-40-1 mg capsule, every 12 hours, Disp: , Rfl: Allergies Allergen Reactions ??? Gluten ??? Lactose Stomach upset Past Medical History: Diagnosis Date ??? Celiac [...] Social History Socioeconomic History ??? Marital status: Spouse name: None ??? Number of children: [...] Strain: ??? Difficulty of Paying Living Expenses: Not on file Food Insecurity: ??? Worried About Running Out of Food in the Last Year: Not on file ??? Ran Out of Food in the Last Year: Not on file Transportation Needs: ??? Lack of Transportation (Medical): Not on file ??? Lack of Transportation (Non-Medical): Not on file Physical Activity: ??? Days of Exercise per Week: Not on file ??? Minutes of Exercise per Session: Not on file Stress: ??? Feeling of Stress : Not on file Social Connections: ??? Frequency of Communication with Friends and Family: Not on file ??? Frequency of Social Gatherings with Friends and Family: Not on file ??? Attends [employer]ism Services: Not on file ??? Active Member of Clubs or Organizations: Not on file ??? Attends Club or Organization Meetings: Not on file ??? Marital Status: Not on file Intimate Partner Violence: ??? Fear of Current or Ex-Partner: Not on file ??? Emotionally Abused: Not on file ??? Physically Abused: Not on file ??? Sexually Abused: Not on file Review of Systems Constitutional: No change in [...] Extremities: Lower extremities are warm well perfused. No open ulcerations. Bilateral pedal pulses nonpalpable. Abdominal: Soft, nontender, no masses. Normal bowel sounds. Musculoskeletal: Normal range of motion. Neurologic: Cranial nerves 2-12 intact. Strength and sensation intact bilaterally. Skin: Warm and dry. No rashes. No discoloration. Hematologic/Lymphatic: No adenopathy, no ecchymoses. Psychiatric: Normal mood and affect. Behavior normal.Judgment normal. Diagnostic Imaging The following diagnostic imaging was reviewed and visualized by myself. Carotid duplex performed 08/17/2021 revealed widely patent right internal carotid artery and a chronically occluded left distal common carotid artery with retrograde filling of the left internal fromhis left external carotid artery. Assessment/Plan Diagnoses and all orders for this visit: Bilateral carotid artery occlusion (I65.23) (Primary) - US Carotids Duplex Bilateral; Future Atherosclerosis of [place] artery of both lower extremities with intermittent claudication (CMS/HCC)(HCC) (I70.213) - US Arterial Doppler Lower Extremity Bilateral; Future Bilateral carotid artery stenosis (I65.23) Assessment & Plan: Impression: Stable carotid artery disease. He has a chronically occluded left common carotid arterywith retrograde filling of his left internal from his left external carotid artery. He has stable right internal carotid stenosis which is asymptomatic. Plan: No surgical intervention currently needed. Recommend ongoing risk factor modifications and follow-up in 6 months for re-evaluation with repeat carotid duplex surveillance. Peripheral vascular disease (CMS/HCC) (HCC) (I73.9) Assessment & Plan: Impression: Patient with history of lower extremity arterial occlusive disease. He has had no recent surveillance diagnostic studies performed. He remains asymptomatic with no ulcerations. Plan: Patient follow-up in 6 months for re-evaluation with repeat lower extremity arterial Doppler surveillance. Moderate essential hypertension (I10) Assessment & Plan: Impression: Stable chronic hypertension. Plan: Medications reviewed and recommend continuing daily antihypertensive regimen as directed by patient's primary care physician. Portions of this note was created with [email or web address] voice recognition software. Hospital Plan Administrator variances may be present. Zac Parada NP Cosigned by Yvan Unger MD at 08/25/2021 1:29 PM CDT documented in this encounter Miscellaneous Notes * Assessment & Plan Note - Zac Parada NP - 08/24/2021 4:00 PM CDT Associated Problem(s): Peripheral vascular disease (CMS/HCC) ([facility]) Impression: Patient with history of lower extremity arterial occlusive disease. He has had no recent surveillance diagnostic studies performed. He remains asymptomatic with no ulcerations. Plan: Patient follow-up in 6 months for re-evaluation with repeat lower extremity arterial Doppler surveillance. * Assessment & Plan Note - Zac Parada NP - 08/24/2021 3:59 PM CDT Associated Problem(s): Bilateral carotid artery stenosis Impression: Stable carotid artery disease. He has a chronically occluded left common carotid arterywith retrograde filling of his left internal from his left external carotid artery. He has stable right internal carotid stenosis which is asymptomatic. Plan: No surgical intervention currently needed. Recommend ongoing risk factor modifications and follow-up in 6 months for re-evaluation with repeat carotid duplex surveillance. * Assessment & Plan Note - Zac Parada NP - 08/24/2021 3:53 PM CDT Associated Problem(s): Moderate essential hypertension Impression: Stable chronic hypertension. Plan: Medications reviewed and recommend continuing daily antihypertensive regimen as directed by patient's primary care physician. documented in this encounter Plan of Treatment Not on file documented as of this encounter Results * US Arterial Doppler Lower Extremity Bilateral (02/21/2022 10:32 AM CDT) Anatomical Region Laterality Modality Vascular Bilateral Ultrasound 02/21/2022 Narrative 02/24/2022 8:57 AM CDT [employer]ion Job ID: [id number] Am[employer]ion Document ID: [id number] Dictated date/time: [id number] LOWER EXTREMITY ARTERIAL DOPPLER REASON FOR EXAMINATION Atherosclerosis, claudication. COMMENTS ON RIGHT Brachial pressure of 154. ??PT/DP noncompressible. ??Digital pressure 110. ?? Waveforms triphasic. COMMENTS ON LEFT PT/DP pressure noncompressible. ??Digital pressure 60. ??Waveforms triphasic. OVERALL IMPRESSION Ankle-brachial indices unreliable secondary to vessel non-compressibility, although waveforms are normal bilateral lower extremities. ??Wound healing potential good. Job ID/Internal Job ID: ??[id number] Zac Parada METAL POURER IMG US PROCEDURES Final Resul t * US Carotids Duplex Bilateral (02/21/2022 10:30 AM CDT) Anatomical Region Laterality Modality Vascular Bilateral Ultrasound 02/21/2022 Narrative 02/24/2022 8:57 AM CDT [employer] Job ID: [id number] Am[employer]ion Document ID: [id number] Dictated date/time: [id number] CAROTID DUPLEX REASON FOR EXAMINATION Carotid stenosis. [...] bilateral vertebral arteries. Job ID/Internal Job ID: ??[id number] Zac Parada NP IMG US PROCEDURES Final Resul t documented in this encounter Visit Diagnoses Diagnosis Bilateral carotid artery occlusion- Primary Occlusion and stenosis of carotid artery without mention of cerebral infarction Atherosclerosis of [place] artery of both lower extremities with intermittent claudication (HCC) Bilateral carotid artery stenosis Occlusion and stenosis of carotid artery without mention of cerebral infarction Peripheral vascular disease (HCC) Unspecified peripheral vascular disease Moderate essential hypertension Bilateral carotid artery occlusion Occlusion and stenosis of carotid artery without mention of cerebral infarction Atherosclerosis of [place] artery of both lower extremities with intermittent claudication (HCC) documented in this encounter Historical Medications * This list may reflect changes made after this encounter. Asacol HD 800 mg EC tablet Take 1 tablet (800 mg total) by mouth 2 (two) times a day 05/11/2021 carvediloL (COREG) 3.125 mg tablet Take 1 tablet (3.125 mg total) by mouth 2 (two) times a day with meals 06/19/2021 traMADoL (ULTRAM) 50 mg tablet tramadol 50 mg tablet TAKE 1 TABLET BY MOUTH EVERY 6 HOURS NEEDED FOR PAIN 2 sodium bicarbonate 650 mg tablet Take 1,300 mg by mouth 3 (three) times a day 06/30/2021 2 mesalamine (Asacol HD) 800 mg EC tablet Asacol HD 800 mg tablet,delayed release TAKE 1 TABLET TWICE A DAY 2 ciprofloxacin (CIPRO) 250 mg tablet ciprofloxacin 250 mg tablet TAKE 1 TABLET BY MOUTH TWICE DAILY 2 carvediloL (COREG) 3.125 mg tablet carvedilol 3.125 mg tablet 2 added in this encounter Care Teams Third Cook Relationship Specialty Start Date End Date Nickie Negron MD [address] [facility] [address] [place] [address] PCP - General 01/13/19 documented as of this encounter
--- OUTSIDE RECORDS SUMMARY | 2024-10-27 10:55 | XMS_ITS | Encounter Summary ---
Author Organization [facility] Medical [facility] Address [address] [facility] [address] [place] [address] Care Team Providers Care Continuous Process Rotary Drum Tanner Name Role Phone Nickie Negron MD Primary Care Provider [phone]- [phone] Encounter Details Date Type Department Care Team (Late st Contact Info) Description 02/20/[address] 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 Gender Identity Not on file Sexual Orientation Not on file documented as of this encounter Plan of Treatment Not on file documented as of this encounter Procedures Procedure Name Priority Date/Time Associated Diagnosis Comments CBC WITHOUT DIFFERENTIAL Routine 02/16/2022 documented in this encounter Results * CBC without differential (02/16/2022) Blood specimen (specimen) us Historical Provider LAB BLOOD ORDERABLES Shruthi l Result documented in this encounter Visit Diagnoses Not on filedocumented in this encounter Care Teams Continuous Process Rotary Drum Tanner Relationship Specialty Start Date End Date Nickie Negron MD [address] [facility] [address] [place] [address] PCP - General 01/13/19 documented as of this encounter
--- OUTSIDE RECORDS SUMMARY | 2024-10-27 10:55 | XMS_ITS | Encounter Summary ---
Author Organization [facility] Healthcare Address [address] [place] [address] Care Team Providers Care Metal Weigher Name Role Phone Nickie Negron MD Primary Care Provider [phone]- [phone] Reason for Referral * Diagnostic Imaging (Routine) - Closed Specialty Diagnoses / Procedures Referred By Roula mcmillan Referred To Contact Diagnoses Epididymitis Procedures US Scrotum Christopher Staley MD Phone: tel: fax: [address] [phone] Referral ID Status Reason Start Date Expiration Date Visits Re quested Visits Authorized [id number] Closed 03/31/2021 04/30/2022 1 1 Reason for Visit * Diagnostic Imaging (Routine) - Closed Specialty Diagnoses / Procedures Referred By Roula mcmillan Referred To Contact Diagnoses Epididymitis Procedures US Scrotum Christopher Staley MD Phone: tel: fax: [address] [phone] Referral ID Status Reason Start Date Expiration Date Visits Re quested Visits Authorized [id number] Closed 03/31/2021 04/30/2022 1 1 Encounter Details Date Type Department Care Team (Latest Contact Info) Description 04/15/2021 10:51 AM CDT - 04/15/2021 11:59 PM CDT Hospital Encounter [facility] [address] [place] [address] Epididymitis Discharge Disposition: Discharge to home or self [...] on file 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 11/20/2016 2 influenza trivalent (Fluad , 65 yr up,,PF,) 45 mcg (15 mcg x 3)/0.5 mL syringe Fluad 65yr up(PF)45 mcg(15 mcgx3)/0.5 mL intramuscular syringe ADM 0.5ML IM UTD 2 levothyroxine (SYNTHROID) 125 mcg tablet Take 1 tablet (125 mcg total) by mouth molder wax ball before breakfast 4 triamcinolone (KENALOG) 0.1 % cream 1 application [...] Name Priority Date/Time Associated Diagnosis Comments US SCROTUM Schedule Routine, Read Routine (OP Routine) 04/15/2021 11:37 AM CDT Epididymitis documented in this encounter Results * US Scrotum (04/15/2021 11:37 AM CDT) Anatomical Region Laterality Modality Testis N/A Ultrasound 04/17/2021 10:0 6 AM CDT Narrative 04/17/2021 10:08 AM CDT EXAM DESCRIPTION: ?? US SCROTUM REASON FOR STUDY: ?? Left-sided testicular pain for 3 weeks. ??Concern for epididymitis. TECHNIQUE: ??Messina scale imaging of the scrotum and testes. COMPARISON: ?? None available FINDINGS: RIGHT: TESTICLE: The right testicle measures ??approximately 3.5 x 2.8 x 1.5 cm. ??The right testicle is normal in echotexture and contour with no mass. ??There is normal blood flow. EPIDIDYMIS: ??The epididymis is normal in size and appearance. HYDROCELE OR VARICOCELE: ??There is no evidence of significant hydrocele or varicocele. HERNIA OR EXTRA-TESTICULAR MASS: ??There is no evidence of extratesticular mass. OTHER: ??No other significant finding. LEFT: TESTICLE: The left testicle measures ??approximately 3.5 x 2.6 x 1.8 cm. ??The left testicle is normal in echotexture and contour with no mass. ??There is normal blood flow. EPIDIDYMIS: ??The epididymis is normal in size and appearance. HYDROCELE OR VARICOCELE: ??There is no evidence of significant hydrocele or varicocele. HERNIA OR EXTRA-TESTICULAR MASS: ??There is no evidence of extratesticular mass. OTHER: ??No other significant finding. IMPRESSION: ?? Essentially unremarkable ultrasound of the testicles and epididymis. ??No evidence of orchitis, epididymitis, or torsion. THIS IS AN ELECTRONICALLY VERIFIED FINAL REPORT 04/17/2021 10:08 AM - Electronically signed by Itz Gonzalez M.D. AT D: ??04/17/2021 10:08 AM T: Report ID: [id number] Reading Location: ??[id number] Procedure Note Itz Gonzalez MD - 04/17/2021 EXAM DESCRIPTION: US SCROTUM REASON FOR STUDY: Left-sided testicular pain for 3 weeks. Concern for epididymitis. TECHNIQUE: Messina scale imaging of the scrotum and testes. COMPARISON: None available FINDINGS: RIGHT: TESTICLE: The right testicle measures approximately 3.5 x 2.8 x 1.5 cm.The right testicle is normal in echotexture and contour with no mass. Thereis normal blood flow. EPIDIDYMIS: The epididymis is normal in size and appearance. HYDROCELE OR VARICOCELE: There is no evidence of significant hydrocele or varicocele. HERNIA OR EXTRA-TESTICULAR MASS: There is no evidence of extratesticularmass. OTHER: No other significant finding. LEFT: TESTICLE: The left testicle measures approximately 3.5 x 2.6 x 1.8 cm.The left testicle is normal in echotexture and contour with no mass. There is normal blood flow. EPIDIDYMIS: The epididymis is normal in size and appearance. HYDROCELE OR VARICOCELE: There is no evidence of significant hydrocele or varicocele. HERNIA OR EXTRA-TESTICULAR MASS: There is no evidence of extratesticularmass. OTHER: No other significant finding. IMPRESSION: Essentially unremarkable ultrasound of the testicles and epididymis. No evidence of orchitis, epididymitis, or torsion. THIS IS AN ELECTRONICALLY VERIFIED FINAL REPORT 04/17/2021 10:08 AM - Electronically signed by Itz Gonzalez M.D. AT T: Report ID: [id number] Reading Location: [place] [address] [facility] Martin Staley MD IMG US PROCEDURES Fi nal Result documented in this encounter Visit Diagnoses Diagnosis Epididymitis Unspecified orchitis and epididymitis documented in this encounter Care Teams Metal Weigher Relationship Specialty Start Date End Date Nickie Negron MD [address] [address] PCP - General 01/13/19 documented as of this encounter
--- OUTSIDE RECORDS SUMMARY | 2024-10-27 10:55 | XMS_ITS | Encounter Summary ---
Author Organization [facility] Healthcare Address [address] [place] [address] Care Team Providers Care Grain Sampler Name Role Phone Nickie Negron MD Primary Care Provider [phone] Reason for Visit * Reason Comments Abdominal Pain Black or Bloody Stool * Auth/Cert Specialty Diagnoses / Procedures Referred By Roula mcmillan Referred To Contact Diagnoses Abdominal pain Black stools Procedures ADM Referral ID Status Reason Start Date Expiration Date Visits Re quested Visits Authorized [id number] 1 1 Encounter Details Date Type Department Care Team (Latest Contact Info) Description 06/12/2022 7:57 AM CDT - 06/18/2022 1:00 PM CDT Hospital Encounter [address] [address] Alejandro Avila MD [address] [place] [phone] Ramon Rosenthal MD [address] [place] [phone] Abdominal pain (Primary Dx); Black stools; Melena Discharge Disposition: Discharge to home or self [...] on file Legal 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 Gender Identity Not on file Sexual Orientation Not on file documented as of this encounter Last Filed Vital Signs Vital Sign Reading Time Taken Comments Blood Pressure 110/71 06/18/2022 7:29 AM CDT Pulse 59 06/18/2022 7:29 AM CDT Temperature 36.5 ??C (97.7 ??F) 06/18/2022 7:29 AM CD T Respiratory Rate 18 06/18/2022 7:29 AM CDT Oxygen Saturation 100% 06/18/2022 7:29 AM CDT Inhaled Oxygen Concentration - - [...] Patient Age - 71 yrs Patient - [id number] [facility] - [id number] Document Creation Date: 06/18/2022 Admitting Provider, : Ramon Borjas MD Discharge Provider, MD: Ramon Rosenthal MD Primary Care Physician at Discharge: Nickie Negron MD [phone] Admission Date: 06/12/2022 Discharge Date/time: 06/18/2022 Admission Location: [facility] LOS - LOS: 6 days DETAILS OF [...] AREDS-2 250-90-40-1 mg capsule Generic drug: vit C,L-Hb-zecot-lutein-zeaxan sodium bicarbonate 650 mg tablet Take 2 [...] Time Provider Department Center 06/20/2022 9:30 AM E MOB 1 [id number] 02/22/2023 9:30 AM Shree Gutiérrez MD [facility] BLV 330 Specialty 02/28/2023 8:00 AM MHB MOB2 VASLAB RM 1 [facility] 02/28/2023 8:30 AM MHB MOB2 VASLAB RM 1 MHB MOB2 VSC B MOB 2 02/28/2023 9:00 AM Solomon Martinez MD [facility] BLV 120 Specialty Contact Information for Follow-ups Nickie Negron MD Specialty: Internal Medicine, Family Medicine Relationship: PCP - [facility] [address] [place] [address] 100 [facility] [address] Next Steps: Follow up Please schedule an appointment with the following provider(s): Nickie Negron MD [address] [facility] 100 [facility] [address] Follow up ANCILLARY INFORMATION Other Procedures & [...] Cee Almonte D.O. AC T: Report ID: [id number] Reading Location: [place] [address] Recent Labs: Recent Labs Lab Units 06/18/22 04206/17/22 0442 06/16/22 0428 WBC K/cumm 6.5 7.3 9.0 HEMOGLOBIN g/dL 9.5* 9.5* 9.3* HEMATOCRIT % 28.2* 29.0* 28.8* PLATELETS K/cumm 157 144* 140* Recent Labs Lab Units 06/18/22 0426 06/17/22 0442 06/16/22 0428 WBC K/cumm 6.5 7.3 9.0 [...] 1.70* 1.60* -- 1.50* < > 1.80* [id number]-AFU-CSCPBDD mL/min/1.73 m2 42 45 -- 49 < [...] Diet Clear Liquid Diet effective now Question: (MHB/MHE/GROUP HOME) Diet type Answer: Clear Liquid 06/16/22 06 Anticoagulation Indication: INR: 06/12/2022: 1.0 Warfarin Administrations [...] Care Everywhere. * Rectal Bleeding (Discharge Care) (Czech) documented in this encounter Medications at Time [...] mg total) by mouth nightly 05/19/2019 vit C,I-Az-ykpbg-lute in-zeaxan (PreserVision AREDS-2) 250-90-40-1 mg capsule Take [...] 1 tablet (125 mcg total) by mouth rod tape operator before breakfast [address] (PROTONIX) 40 [...] (from Physical Therapy) Active Problems Problem: PT [facility] [place] [place] Start Date: 06/15/22 Goal Start Date Expected End Date End Date PT LTG - [facility] [place] [place] 1 06/15/22 06/29/22 -- Goal Details: 1) [...] 06/18/2022 9:40 AM CDT Occupational Therapy 06/18/22 0988 General Session Type Treatment OT Received On [...] tongue midline, mucosa moist Lungs CTA Heart: [id number], no significant murmur or gallop Abd: +BS, [...] Ramon Rosenthal MD 3 mL at 06/17/22 4863 ??? levothyroxine (SYNTHROID) injection 60 mcg 60 mcg intravenous Daily Ramon Rosenthal MD 60 mcg at 06/17/22 5645 ??? pantoprazole (PROTONIX) 4 mg/mL injection 40 [...] patient Case discussed with Case Management and Brake Press Operator Medical complexity/risk: Moderate complexity case it took me 25 minutes review the case, place pertinent orders, discussed current findings with patient examined him Voice recognition software [employer] Fluency Direct may have been used dictate and transcribe this document. Salesperson Books variances may occur. Despite proofreading, typographical errors may occur. Ramon Cruz MD 06/17/2022 8:59 AM * Eugene Hartman. - 06/16/2022 2:41 PM CDT 06/16/22 1400 Time Spent Start Time 1438 Patient Spiritual Assessment Spirituality Assessed Yes Anabaptism Affiliation Alevism Clinical Encounter Type Visited With Patient;Patient and [...] tongue midline, mucosa moist Lungs CTA Heart: [id number], no significant murmur or gallop Abd: +BS, [...] patient Case discussed with Case Management and Brake Press Operator Medical complexity/risk: Moderate complexity case it took me 25 minutes review the case, place pertinent orders, discussed current findings with patient examined him Voice recognition software MModal Fluency Direct may have been used dictate and transcribe this document. Salesperson Books variances may occur. Despite proofreading, typographical errors may occur. 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 oriented , No tremor or new neurological [...] mL/hr at 06/15/22 0730, 75 mL/hr at 06/15/22 07 ??? sodium chloride 0.9% infusion, 50 mL/hr, [...] 06/15/2022 3:19 PM CDT Physical Therapy 06/15/22 8039 General Chart Reviewed Yes Session Type Evaluation [...] assist with laundry. Prior Function Level of [place] Independent with ADLs;Independent functional transfers;Independent with ambulation [...] End Date End Date PT LTG - [facility] [place] [place] 1 06/15/22 06/29/22 -- Goal Details: 1) [...] tongue midline, mucosa moist Lungs CTA Heart: [id number], no significant murmur or gallop Abd: +BS, [...] patient Case discussed with Case Management and Brake Press Operator Medical complexity/risk: Moderate complexity case it took me 26 minutes review the case, place pertinent orders, discussed current findings with patient examined him Voice recognition software MModal Fluency Direct may have been used dictate and transcribe this document. Salesperson Books variances may occur. 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 oriented , No tremor or new neurological [...] tongue midline, mucosa moist Lungs CTA Heart: [id number], no significant murmur or gallop Abd: +BS, [...] requested 1 Units requested Ready Unit Number [id number] Product code [id number] Blood Expiration Date [id number] Product Blood Type (for scanning) 7300 Product [...] patient Case discussed with Case Management and Brake Press Operator Medical complexity/risk: Moderate complexity case it took me 27 minutes review the case, place pertinent orders, discussed current findings with patient examined him Voice recognition software MModal Fluency Direct may have been used dictate and transcribe this document. Salesperson Books variances may occur. Despite proofreading, typographical errors may occur. Ramon Cruz MD 06/14/2022 11:09 AM * Aracelis Lowe, OT - 06/14/2022 9:57 AM CDT Occupational Therapy 06/14/22 0930 General Chart Reviewed Yes Session Type Evaluation [...] CKD Occupational Therapy-Patient Goal return home at ne Current Functional Status OT Functional Mobility supine [...] lives alone in a 1 level homew ith basement (where the laundry is)with 2 AUDREY. [...] (from Occupational Therapy) Active Problems Problem: OT [facility] [place] [place] Start Date: 06/14/22 Goal Start Date Expected End Date End Date OT [facility] 6 06/14/22 06/21/22 -- Goal Details: Pt will complete UB and LB dress mod I AE PRN with good safety Goal Start Date Expected End Date End Date OT [facility] 7 06/14/22 06/21/22 -- Goal Details: 2. Pt will complete all aspects toileting including mobility mod I with good safety. Goal Start Date Expected End Date End Date [facility] 8 06/14/22 06/21/22 -- Goal Details: 3. Pt will tolerate standing at sink x 5 min with good standing balance to increase indep with adls. Goal Start Date Expected End Date End Date [facility] 9 06/14/22 06/21/22 -- Goal Details: 4. Pt will reach from hi/low with good balance to increase indep with home tasks. Goal Start Date Expected End Date End Date OT STG - Misc 10 06/14/22 06/21/22 -- Goal Details: 5. [...] No rash, discoloration Musculoskeletal no joint deformity HEAT TREATMENT TECHNICIAN. oriented , No tremor or new neurological [...] sitting on bedside and receiving breathing treatment. 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 Salesperson Books variances may occur. Despite proofreading, typographical errors may occur. Ramon Cruz MD 06/13/2022 11:19 AM * Kiesha Sky RN - 06/12/2022 11:50 AM CDT CM Initial Assessment Interview Note Admission Source: Patient [...] not remember the year. Patient transferred to [address] [place] [address] for further management. Plan Includes: Possible EGD today, GI management, IV fluids Primary Source of Transportation: EMS Health Insurance Coverage: [employer] Medicare, [id number] [place], [place] - [address] [place] [address] RD AT [facility] & [address] Primary Care Provider: Nickie Negron MD Prior to Admission: Primary Caregiver: Self Support System: Children Support system contact info (name, phone, availablity): Lenard ROSADO BENHOFF,Lilia Durable Medical Equipment: Walker (wheeled) (Has a [...] Collaboration with patient, MD, direct care nurse, Brake Press Operator, Nurse Coordinator and other members of the health care team to assure needed interventions completed. 2. Return patient to optimal level of self-care post discharge. 3. Social Insurance Specialist will follow for Discharge Planning - interventions as needed 4. Anticipated level of care at discharge 5. Planned Discharge Disposition Kiesha Sky RN documented in this encounter H&P Notes * Simran Parra NP - 06/12/2022 9:59 AM CDT Images from the original note were not included. History and Physical Date of Service: 06/12/2022 Primary Care Physician: Nickie Negron MD [phone] CHIEF COMPLAINT: Patient is a 71 y.o. [...] mcg tablet Take 125 mcg by mouth rod tape operator before breakfast 06/11/2022 at Unknown time ??? pravastatin (PRAVACHOL) 10 mg tablet Take 10 mg by mouth nightly 06/11/2022 at Unknown time ??? sodium bicarbonate 650 mg tablet Take 2 tablets (1,300 mg total) by mouth 3 (three) times a [id number] tablet 3 06/11/2022 at Unknown time ??? vit C,M-Lh-xhlzh-lutein-zeaxan (PreserVision AREDS-2) 250-90-40-1 mg capsule Take 1 [...] mg, 12.5 mg, intravenous, Q15 Min PRN, Carlos A Lee, DO ??? EPINEPHrine syringe (ADRENALIN) 0.1 mg/mL 1 mg, 1 mg, intravenous, Once, Alvin Alicia MD ??? fentaNYL (SUBLIMAZE) preservative free injection 25 mcg, 25 mcg, intravenous, Once PRN, Carlos A Lee, DO ??? fentaNYL (SUBLIMAZE) preservative free injection 50 mcg, 50 mcg, intravenous, Once PRN, Carlos A Lee Moody, DO ??? hydrALAZINE (APRESOLINE) injection 5 mg, 5 mg, intravenous, Q15 Min PRN, Carlos A Lee, DO ??? labetaloL (NORMODYNE,TRANDATE) injection 5 mg, 5 mg, intravenous, Q10 Min PRN, Carlos A Lee, DO ??? metoclopramide (REGLAN) injection 10 mg, 10 mg, intravenous, Once PRN, Carlos A Lee, DO ??? naloxone (NARCAN) 0.4 mg/mL injection 0.04-0.4 mg, 0.04-0.4 mg, intravenous, Once PRN, Carlos A Lee, DO ??? ondansetron (ZOFRAN) injection 4 mg, 4 mg, intravenous, Once PRN, Carlos A Lee, DO ??? sodium chloride 0.9% infusion, 75 mL/hr, intravenous, Continuous, Simran Parra, VINNY, New Bag at 06/12/22 1438 ??? sodium chloride 0.9% infusion, 50 mL/hr, intravenous, Continuous, Carlos A Lee, DO ??? albuterol ??? diphenhydrAMINE ??? fentaNYL [...] is fluent. XR Chest 1 Vw Portable [[id number]] Collected: 06/12/22 1121 Order Status: Completed Updated: [...] signed by ??Cee Almonte D.O. January Suzy DIAZ D: ??06/12/2022 11:22 AM T: Report ID: [id number] Reading Location: ??[id number] Assessment and plan Principal Problem: Melena Active [...] PM CDT Pt was Discharged today from [address] [place] [address]. Patient acknowledged the discharge information and education [...] Encounter for long-term (current) use of insulin ([facility]) ([facility]) 07/12/2021 ??? Occlusion of left carotid artery 02/22/2021 ??? Carotid artery stenosis, unilateral 02/05/2021 ??? Benign prostatic hyperplasia with urinary obstruction 01/04/2021 ??? Acute dehydration 05/05/2020 ??? Acute kidney injury (CMS/HCC) ([facility]) 05/05/2020 ??? Body mass index (BMI) 19.9 or less, adult 05/05/2020 ??? Chronic obstructive pulmonary disease with bronchospasm (CMS/HCC) ([facility]) 05/05/2020 ??? Acute renal failure superimposed on chronic kidney disease (CMS/HCC) ([facility]) 05/05/2020 ??? Coffee ground emesis 05/05/2020 ??? 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 Fall involving ice skates 05/05/2020 ??? Family history of stroke 05/05/2020 ??? Gastroenteritis 05/05/2020 ??? Gastroesophageal reflux disease with esophagitis 05/05/2020 ??? Gastrointestinal hemorrhage 05/05/2020 ??? History of Crohn's disease 05/05/2020 ??? Hyperleukocytosis 05/05/2020 ??? Hypotension due to blood loss 05/05/2020 ??? Repeated falls 05/05/2020 ??? Systemic inflammatory response syndrome (SIRS) (CMS/HCC) ([facility]) 05/05/2020 ??? Traumatic hematoma of [...] 12/28/2016 ??? Claudication of left lower extremity (CMS/[facility]) ([facility]) 06/21/2016 ??? History of acute renal failure 03/19/2016 ??? Hypokalemia due to loss of potassium 03/19/2016 ??? Coronary artery disease 02/27/2016 ??? Crohn's disease without complication (CMS/HCC) ([facility]) 02/27/2016 ??? Ex-smoker 02/27/2016 ??? Hyperlipidemia 02/27/2016 ??? Moderate essential hypertension 02/27/2016 ??? Osteoarthritis 02/27/2016 ??? Osteoporosis 02/27/2016 ??? Peripheral vascular disease (CMS/HCC) ([facility]) 02/27/2016 ??? Primary hypothyroidism 02/27/2016 [...] and oriented to person, place, and time. [facility] MDM Medical Decision Making Clinical problems/dx: Julius [...] status changes, document and update social work msw and MD as needed 4. Provide in [...] status changes, document and update social work msw and MD as needed 4. Provide in [...] status changes, document and update social work msw and MD as needed 4. Provide in [...] status changes, document and update social work msw and MD as needed 4. Provide in [...] status changes, document and update social work msw and MD as needed 4. Provide in [...] status changes, document and update social work msw and MD as needed 4. Provide in [...] discomfort. * Plan of Care - Moody Robertson, SUPERVISOR LIQUID YEAST - 06/14/2022 7:40 PM CDT Problem: Respiratory [...] status changes, document and update social work msw and MD as needed 4. Provide in [...] status changes, document and update social work msw and MD as needed 4. Provide in [...] status changes, document and update social work msw and MD as needed 4. Provide in [...] status changes, document and update social work msw and MD as needed 4. Provide in room activities of choice if indicated 5. Provide alternative methods of communication with family/visitors 6. Assure resident, family, and resident representatives facility is taking precautions to keep them safe 7. Update resident, family, and resident representatives as needed 06/12/2022 1339 by Amada Cantu RN Outcome: Progressing 06/12/2022 1338 by Amada Cantu RN Outcome: Progressing Problem: COVID-19 Prevention [...] AM CDT) eGFR 42 mL/min/1. 73 m2 CERNER Comment: Interpretive Data Reference Interval Normal ?>/= [...] MD LAB BLOOD ORDERABLES Final Result [facility] [address] [facility] [place] [address] * (ABNORMAL) Differential, auto (06/18/2022 4:26 AM CDT) Neutrophil abs 3.9 1.7 - 6.5 K/cumm [facility] Imm gran abs 0.3(H) 0.0 - 0.1 K/cumm [facility] Lymphocyte abs 1.3 0.8 - 3.3 K[facility] Monocyte abs 0.7 0.2 - 0.8 K/cumm [...] MD LAB BLOOD ORDERABLES Final Result [facility] [address] [facility] [place] [address] * (ABNORMAL) CBC with auto differential (06/18/2022 4:26 AM CDT) WBC 6.5 3.8 - 9.9 K/cumm [facility] [...] ORDERABLES Final Result [facility] [address] [facility] [place] [address] * (ABNORMAL) Basic metabolic panel (06/18/2022 4:26 AM CDT) Sodium 137 135 - 145 mmol/L CLINCH [...] MD LAB BLOOD ORDERABLES Final Result [facility] [address] [facility] [place] [address] * eGFR (06/17/2022 4:42 AM CDT) eGFR [...] ORDERABLES Final Result [facility] [address] [facility] [place] [address] * (ABNORMAL) Differential, auto (06/17/2022 4:42 AM [...] BLOOD ORDERABLES Final Result Performing Organization Address City/[facility]/ZIP Co de Phone Number [place] [id number] [facility] [place] [address] * (ABNORMAL) CBC with auto differential (06/17/2022 [...] LAB BLOOD ORDERABLES Final Result [facility] [address] [place] [address] * (ABNORMAL) Basic metabolic panel (06/17/2022 4:42 [...] BLOOD ORDERABLES Final Result Performing Organization Address City/[facility] Co de Phone Number [facility] [address] [facility] [place] [address] * POCT glucose (06/16/2022 5:11 PM CDT) Glucose, POC 108 70 - 199 mg/dL [facility] Glucose comment 1 Use This Result [facility] Glucose comment 2 Will Notify Nurse [facility] Blood 06/16/2022 5:11 PM CDT 06/16/2022 5:11 PM CDT Ramon Borjas MD LAB POCT ORDERABLES - DEVICE Final Result Performing Organization Address [facility] Co de Phone Number TESHA[address] [address] * POCT glucose (06/16/2022 12:13 PM CDT) Glucose, POC 101 70 - 199 mg/dL [facility] Glucose comment 1 Use This Result [facility] Glucose comment 2 Will Notify Nurse [facility] Blood 06/16/2022 12:1 3 PM CDT 06/16/2022 12:13 PM CDT Ramon Borjas MD LAB POCT ORDERABLES - DEVICE Final Result Performing Organization Address [facility] de Phone Number [address] [address] * POCT glucose (06/16/2022 9:48 AM CDT) Glucose, POC 173 70 - 199 mg/dL [facility] Glucose comment 1 Use This Result [facility] Glucose comment 2 Will Notify Nurse [facility] Blood 06/16/2022 9:48 AM CDT 06/16/2022 9:48 AM CDT Ramon Borjas MD LAB POCT ORDERABLES - DEVICE Final Result Performing Organization Address City/[facility] Co de Phone Number [address] [address] * POCT glucose (06/16/2022 7:51 AM CDT) Glucose, POC 107 70 - 199 mg/dL [facility] Glucose comment 1 Use This Result [facility] Blood 06/16/2022 7:51 AM CDT 06/16/2022 7:51 AM CDT Ramon Borjas MD LAB POCT ORDERABLES - DEVICE Final Result Performing Organization Address City/[facility] Co de Phone Number TESHA[address] [place] [address] * POCT glucose (06/16/2022 7:32 AM CDT) Glucose, POC 94 70 - 199 mg/dL [facility] Glucose comment 1 Use This Result [facility] Blood 06/16/2022 7:32 AM CDT 06/16/2022 7:32 AM CDT Ramon Borjas MD LAB POCT ORDERABLES - DEVICE Final Result Performing Organization Address [facility] Co de Phone Number TESHA[address] [place] [address] * POCT glucose (06/16/2022 7:05 AM CDT) Glucose, POC 78 70 - 199 mg/dL [facility] Glucose comment 1 Use This Result [facility] Glucose comment 2 Will Notify Nurse [facility] Blood 06/16/2022 7:05 AM CDT 06/16/2022 7:05 AM CDT Ramon Borjas MD LAB POCT ORDERABLES - DEVICE Final Result Performing Organization Address City/[facility] Co de Phone Number TESHA[address] [place] [address] * POCT glucose (06/16/2022 6:54 AM CDT) Glucose, POC 70 70 - 199 mg/dL [facility] Glucose comment 1 Use This Result [facility] Glucose comment 2 Will Notify Nurse [facility] Blood 06/16/2022 6:54 AM CDT 06/16/2022 6:54 AM CDT Ramon Borjas MD LAB POCT ORDERABLES - DEVICE Final Result Performing Organization Address City/[facility] Co de Phone Number [address] [place] [address] * (ABNORMAL) POCT glucose (06/16/2022 6:40 AM CDT) Pathologist [place] [facility] Glucose, POC 66(L) 70 - 199 mg/dL [facility] Blood 06/16/2022 6:40 AM CDT 06/16/2022 6:40 AM CDT Ramon Borjas MD LAB POCT ORDERABLES - DEVICE Final Result Performing Organization Address [facility] de Phone Number [place] [id number] [facility] [place] [address] * eGFR (06/16/2022 4:28 AM CDT) [facility] eGFR 49 mL/min/1. 73 m2 [facility] [...] ORDERABLES Final Result [facility] [address] [facility] [place] [address] * (ABNORMAL) Differential, auto (06/16/2022 4:28 AM [...] Borjas MD LAB BLOOD ORDERABLES Final Result [place] [id number] [facility] [place] [address] * (ABNORMAL) CBC with auto differential (06/16/2022 [...] MD LAB BLOOD ORDERABLES Final Result [facility] [address] [address] * (ABNORMAL) Basic metabolic panel (06/16/2022 4:28 AM CDT) Pathologist [facility] Sodium 140 135 - 145 mmol/L CLINCH [...] Borjas MD LAB BLOOD ORDERABLES Final Result TES[address] [place] [address] * (ABNORMAL) Differential, auto (06/15/2022 11:13 AM CDT) Pathologist [place] Neutrophil abs 7.4(H) 1.7 - 6.5 K/cumm [...] 3 AM CDT 06/15/2022 11:21 AM CDT us Ramon Borjas MD LAB BLOOD ORDERABLES Final Result [place] [address] [place] [address] * (ABNORMAL) CBC with auto differential (06/15/2022 11:13 AM CDT) [facility] WBC 9.4 3.8 - 9.9 K/cumm CLINCH [...] 3 AM CDT 06/15/2022 11:21 AM CDT us Ramon Borjas MD LAB BLOOD ORDERABLES Final Result Performing Organization Address City/State/[facility] Co ak Phone Number [address] [place] [address] * eGFR (06/15/2022 5:19 AM CDT) [facility] eGFR 49 mL/min/1. 73 m2 [facility] [...] 5:19 AM CDT 06/15/2022 5:36 AM CDT Ramon Borjas MD LAB BLOOD ORDERABLES Final Result [facility] [address] [facility] Department [place] [address] * (ABNORMAL) Basic metabolic panel (06/15/2022 5:19 AM CDT) Sodium 141 135 - 145 mmol/L CLINCH [...] ORDERABLES Final Result [facility] [address] [facility] Department [place] [address] * (ABNORMAL) Differential, auto (06/14/2022 11:47 PM [...] 7 PM CDT 06/15/2022 12:26 AM CDT us Ramon Borjas MD LAB BLOOD ORDERABLES Final Result Performing Organization Address City/State/[facility] Co de Phone Number [facility] [address] [facility] Department [place] [address] * (ABNORMAL) CBC with auto differential (06/14/2022 [...] MD LAB BLOOD ORDERABLES Final Result GENARO [address] [facility] Department [place] [address] * (ABNORMAL) Differential, auto (06/14/2022 11:31 AM [...] BLOOD ORDERABLES Final Result Performing Organization Address City/[facility]/ZIP Co de Phone Number [facility] [address] [facility] [place] [address] * (ABNORMAL) CBC with auto differential (06/14/2022 [...] BLOOD ORDERABLES Final Result Performing Organization Address City/[facility]/ZIP Co de Phone Number [facility] [address] [facility] Department [place] [address] * eGFR (06/14/2022 4:21 AM CDT) [facility] eGFR 45 mL/min/1. 73 m2 TESHAGOPAL Comment: Interpretive Data [...] Borjas MD LAB BLOOD ORDERABLES Final Result [facility] [address] [facility] Department [place] [address] * (ABNORMAL) Basic metabolic panel (06/14/2022 4:21 AM CDT) [facility] Sodium 141 135 - 145 mmol/L [facility] Potassium, pl 3.9 3.3 - 4.9 mmol/L [...] ORDERABLES Final Result [facility] [address] [facility] Department [place] [address] * (ABNORMAL) Differential, auto (06/14/2022 12:24 AM CDT) Neutrophil abs 7.7(H) 1.7 - 6.5 K/cumm [...] ORDERABLES Final Result [facility] [address] [facility] Department [place] [address] * (ABNORMAL) CBC with auto [...] BLOOD ORDERABLES Final Result Performing Organization Address City/[facility] Co de Phone Number [address] [employer] [place] [address] * Transfuse RBC (06/13/2022 5:45 PM CDT) Blood specimen (specimen) Ramon Borjas MD BLOOD TRANSFUSION ORD ERABLES Final Result Performing Organization Address City/[facility] Co de Phone Number [address] [place] [address] * Transfuse RBC: 1 Units (06/13/2022 5:45 [...] MD LAB BLOOD ORDERABLES Final Result GENARO [address] [facility] Department [place] [address] * (ABNORMAL) CBC with auto differential (06/13/2022 11:40 AM CDT) WBC 13.0(H) 3.8 - 9.9 K/cumm CLINCH [...] BLOOD ORDERABLES Final Result Performing Organization Address City/State/[facility] Co de Phone Number [facility] [address] [facility] Department [place] [address] * Prepare RBC: 1 Units (06/13/2022 11:29 AM CDT) Units requested 1 [facility] Units requested Ready [facility] Unit Number [id number] [facility] Product code [id number] [facility] Blood Expiration Date [id number] [facility] Product Blood Type (for scanning) 7300 [facility] Product Blood Type BPOS [facility] Dispense Status DISPENSED [facility] Blood 06/13/2022 11:2 9 AM CDT 06/13/2022 11:29 AM CDT Ramon Borjas MD BLOOD BANK PRODUCT OR DERABLES Final Result Performing Organization Address [facility] Co de Phone Number GENARO [address] [facility] [place] [address] * eGFR (06/13/2022 9:50 AM CDT) [facility] eGFR 42 mL/min/1. 73 m2 GENARO Comment: [...] BLOOD ORDERABLES Final Result Performing Organization Address [facility] Co de Phone Number GEN[facility]O [address] [facility] [place] [address] * (ABNORMAL) Differential, auto (06/13/2022 9:50 AM [...] MD LAB BLOOD ORDERABLES Final Result GENARO [address] [address] * (ABNORMAL) Basic metabolic panel (06/13/2022 9:50 AM CDT) Pathologist [facility] Sodium 143 135 - 145 mmol/L CLINCH [...] MD LAB BLOOD ORDERABLES Final Result GENARO [facility] [place] [address] * (ABNORMAL) CBC with auto differential (06/13/2022 9:50 AM CDT) Pathologist [facility] WBC 10.2(H) 3.8 - 9.9 K/cumm [facility] Hgb 7.0(L) 13.0 - 17.5 g/dL CLINCH [...] ORDERABLES Final Result [facility] [address] [facility] Department [place] [address] * Urinalysis reflex to microscopic and culture Urine (06/12/2022 12:46 PM CDT) Color, ur Yellow Yellow [facility] [...] for microscopic UA and culture not met. [facility] Urine 06/12/2022 12:4 6 PM CDT 06/12/2022 [...] tendency for uric acid stone formation. Source: [place] [facility]. Last revised 11-07-2017 us Alejandro Avila MD LAB MICROBIOLOGY - GENERAL ORDERABLES Final Result [facility] [address] [facility] Department [place] [address] * XR Chest 1 Vw Portable (06/12/2022 [...] - Electronically signed by ??Cee Almonte D.O. AC D: ??06/12/2022 11:22 AM T: Report ID: [id number] Reading Location: ??[id number] Procedure Note Cee Almonte DO - 06/12/2022 EXAM DESCRIPTION: XR CHEST 1 [...] Cee Almonte D.O. AC T: Report ID: [id number] Reading Location: [place] [address] Alejandro Avila MD IMG XR PROCEDURES F inal Result * COVID-19 Coronavirus RNA Nasopharyngeal (06/12/2022 8:54 AM CDT) COVID-19 RNA Negative Negative [facility] Nasopharyngeal 06/12/2022 8: 54 AM CDT 06/12/2022 8:57 AM CDT Narrative [facility] - 06/12/2022 10:01 AM CDT Is the patient experiencing any symptoms consistent with COVID (eg. Fever, cough, shortness of breath)?->No What is the reason for testing?->Screening prior to urgent surgery, procedure, BMT, immunosuppressive therapy??(Rapid) ??Interpretive data: Synonyms for this test include: PCR and NAAT . ??This test is performed using the [employer] Xpert Xpress plus assay. This is a [...] . ??This test is performed using the [employer] Xpert Xpress plus assay. This is a [...] Edited Result - Final Performing Organization Address [facility] Co de Phone Number [address] [employer] [place] [address] * ABO / Rh Confirmation Testing (06/12/2022 8:45 AM CDT) ABO/Rh Confirmation B Positive [facility] Blood 06/12/2022 8:45 AM CDT 06/12/2022 8:47 AM CDT us Alejandro Avila MD LAB BLOOD ORDERABLE S Final Result Performing Organization Address [facility] Co de Phone Number [address] [place] [address] * Crossmatch (06/12/2022 8:19 AM CDT) Crossmatch Compatible [facility] Unit number for crossmatch [id number] [facility] Blood 06/12/2022 8:19 AM CDT 06/12/2022 8:23 AM CDT Ramon Borjas MD LAB BLOOD BANK TEST O RDERABLES Final Result Performing Organization Address [facility]/ZIP Co de Phone Number [address] [place] [address] * (ABNORMAL) Manual Differential (06/12/2022 8:19 AM [...] S Final Result [facility] [address] [facility] Department [place] [address] * eGFR (06/12/2022 8:19 AM CDT) eGFR 39 mL/min/1. 73 m2 GENARO Comment: Interpretive Data [...] LAB BLOOD ORDERABLE S Final Result GENARO [address] [facility] Department [place] [address] * Antibody screen (06/12/2022 8:19 AM CDT) Afshan, indirect, Gel Interpretation Negative ABSC [facility] TOV[facility] Blood 06/12/2022 8:19 AM CDT 06/12/2022 8:23 AM CDT Narrative GENARO TOVAR - 06/12/2022 9:05 AM CDT Has the patient had Daratumumab or Isatuximab in the past 6 months?->Unknown Alejandro Avila MD LAB BLOOD BANK TEST ORDERABLES Final Result Performing Organization Address [facility] Co de Phone Number GENARO [address] [place] [address] * ABO/Rh (06/12/2022 8:19 AM CDT) Pathologist [facility] ABO/Rh B Positive [facility] Blood 06/12/2022 8:19 AM CDT 06/12/2022 8:23 AM CDT [facility] 06/12/2022 9:05 AM CDT Has the patient had Daratumumab or Isatuximab in the past 6 months?->Unknown Alejandro Avila MD LAB BLOOD BANK TEST ORDERABLES Final Result Performing Organization Address [facility] de Phone Number [address] [place] [address] * Protime-INR (06/12/2022 8:19 AM CDT) Pathologist [facility] PT 13.3 12.0 - 14.6 sec [facility] INR 1.0 0.9 - 1.2 GENARO Comment: Ref Range High Interpretive data Oral [...] ORDERABLE S Final Result Performing Organization Address City/[facility] Co de Phone Number [address] [place] [address] * (ABNORMAL) Comprehensive metabolic panel (06/12/2022 8:19 [...] MD LAB BLOOD ORDERABLE S Final Result [facility] [address] [facility] Department [place] [address] * (ABNORMAL) CBC with auto differential (06/12/2022 8:19 AM CDT) [facility] WBC 21.9(H) 3.8 - 9.9 K/cumm CLINCH [...] BLOOD ORDERABLE S Edited Result - Final [place] [id number] [facility] Department [place] [address] * ECG 12 lead (06/12/2022 8:06 AM CDT) [facility] Ventricular Rate EKG/Min 104 BPM [facility] Atrial Rate 104 BPM [facility] VT-Interval (MSEC) 114 ms [facility] QRS-Interval (MSEC) 82 ms [facility] QT-Interval (MSEC) 338 ms [facility] QTc 444 ms [facility] P Darden 40 degrees [facility] R Darden 49 degrees [facility] T Darden 44 degrees [facility] Diagnosis Sinus tachycardia with Premature supraventricular complexes Nonspecific ST abnormality Abnormal ECG When compared with ECG of 25-ANDREA-2021 12:02, Premature supraventricular complexes are now Present ST now depressed in Inferior leads [facility] 06/12/2022 8:06 AM CDT 06/12/2022 2:48 PM CDT us Alejandro Avila MD ECG ORDERABLES Fin al Result [facility] documented in this encounter Visit Diagnoses Diagnosis Melena- Primary Blood in stool Abdominal pain Abdominal pain, unspecified site Black stools Nonspecific abnormal finding in stool contents Melena Blood in stool Coronary artery disease Coronary atherosclerosis of unspecified type of vessel, ruby or graft Peripheral vascular disease (CMS/HCC) (HCC) Unspecified peripheral vascular disease Chronic kidney disease, stage III (moderate) (HCC) Chronic kidney disease, Stage III (moderate) Leukocytosis Leukocytosis, unspecified History of Crohn's disease Abdominal pain Abdominal pain, unspecified site documented in this encounter Admitting Diagnoses Diagnosis Abdominal pain Abdominal pain, unspecified site documented in this encounter Administered Medications Inactive Administered Medications - up to 3 most recent administrations Medication Order MAR Action Action Date Dose Rate Site ipratropium-albuteroL (DUO-NEB) 0.5-2.5 mg/3 mL nebulizer solution 3 mL 3 mL, nebulization, 4 times daily (respiratory therapist), First dose on Sat06/13/22 at 1100, Indications: Chronic Obstructive Pulmonary Disease with BronchospasmsIndications:Chronic Obstructive Pulmonary Disease with Bronchospasms Given 06/13/2022 11:20 AM CDT 3 mL ipratropium-albuteroL (DUO-NEB) 0.5-2.5 mg/3 mL nebulizer solution 3 mL 3 mL, nebulization, 2 times daily (respiratory therapist), First dose (after last modification) on Sat06/13/22 at 2000, Indications: Chronic Obstructive Pulmonary Disease with BronchospasmsIndications:Chronic Obstructive Pulmonary Disease with Bronchospasms Given 06/17/2022 8:38 PM CDT 3 mL Given 06/17/2022 7:53 AM CDT 3 mL Given 06/16/2022 8:48 PM CDT 3 mL ipratropium-albuteroL (DUO-NEB) 0.5-2.5 mg/3 mL nebulizer solution 3 mL 3 mL, nebulization, Every 6 hours PRN (respiratory therapist), wheezing, shortness of breath, Starting on Sat06/18/22 at 0545, Indications: Chronic Obstructive Pulmonary Disease with BronchospasmsIndications:Chronic Obstructive Pulmonary Disease with Bronchospasms levothyroxine (SYNTHROID) injection 60 mcg 60 mcg, intravenous, Administer over 1 Minutes, Daily, First dose on Sat06/17/22 at 0900 Given 06/18/2022 9:14 AM CDT [...] Given 06/17/2022 7:45 AM CDT 40 mg pantoprazole (PROTONIX) 4 mg/mL injection 80 mg 80 mg, intravenous, Administer over 2 Minutes, Once, On Sat06/12/22 at 0830, For 1 dose, For IV Push administration for adults- 40 mg vial: add 10 mL of sodium chloride 0.9% to achieve a final concentration of 4 mg/mL, Indications: GI BleedIndications:GI Bleed Given 06/12/2022 8:33 AM CDT 80 mg sodium chloride 0.9% bolus 1,000 mL 1,000 mL, intravenous, Once, On Sat06/12/22 at 0802, For 1 dose New Bag 06/12/2022 8:29 AM CDT 1,000 mL sodium chloride 0.9% infusion 75 mL/hr, intravenous, Continuous, Starting on Sat06/12/22 at 1005 New Bag 06/15/2022 10:17 PM CDT 75 mL/hr 75 mL/hr New Bag 06/15/2022 7:30 AM CDT 75 mL/hr 75 mL/hr New Bag 06/14/2022 5:53 PM CDT 75 mL/hr 75 mL/hr sodium chloride 0.9% IVPB 0-250 mL 0-250 mL, intravenous, Once, On Sat06/13/22 at 1200, For 1 dose, Prime blood tubing and administer amount needed to clear line (usually 50-100 mL) after transfusion complete. New Bag 06/13/2022 2:03 PM CDT 250 mL documented in this encounter Discontinued Medications Medication Sig Discontinue Reason Start Date End Da te denosumab (Prolia) 60 mg/mL syringe Inject 1 mL by subcutaneous route as directed for 180 days. Therapy completed 11/20/2016 06/12/2022 influenza trivalent 8942-5869 (Fluad 5446-2203, 65 yr up,,PF,) 45 mcg (15 mcg [...] (CANCELED) 3 mL, nebulization, 2 times daily (respiratory therapist), First dose (after last modification) on Sat06/13/22 at 2000, Indications: Chronic Obstructive Pulmonary Disease with Bronchospasms 08 (Given - Provider: Mila Aponte, JOSH)2047 (Given - Provider: Mercedez Espinoza) 0753 (Given - Provider: Mila Aponte, SUPERVISOR LIQUID YEAST)2037 (Given - Provider: Mila Adler, JOSH) levothyroxine (SYNTHROID) injection 60 mcg 60 mcg, intravenous, Administer over 1 Minutes, Daily, First dose on Sat06/17/22 at 0900 0745 (Given - Provider: Ceci Pope, RN) 0914 (Given - Provider: Rachel Frank, RN) pantoprazole (PROTONIX) 4 mg/mL injection 40 mg 40 mg, intravenous, Administer over 2 Minutes, 2 times daily, First dose on Sat06/13/22 at 1200, For IV Push administration for adults- 40 mg vial: add 10 mL of sodium chloride 0.9% to achieve a final concentration of 4 mg/mL, Indications: GI Bleed 0833 (Given - Provider: Stevan Gilliam RN)2154 (Given - Provider: Nadine Prasad RN) 0745 (Given - Provider: Ceci Pope, CHRIS)2124 (Given - Provider: Tameka Sivla RN) 0914 (Given - Provider: Rachel Frank, RN) PRN Medication Order 06/16/2022 06/17/2022 06/18/2022 hydrALAZINE (APRESOLINE) injection 10 mg 10 mg, intravenous, Administer over 2 Minutes, Every 6 hours PRN, high blood pressure, BP>160/90, Starting on Sat06/13/22 at 1018, Indications: hypertension ipratropium-albuteroL (DUO-NEB) 0.5-2.5 mg/3 mL nebulizer solution 3 mL 3 mL, nebulization, Every 6 hours PRN (respiratory therapist), wheezing, shortness of breath, Starting on Sat06/18/22 at 0545, Indications: Chronic Obstructive Pulmonary Disease with Bronchospasms documented in this encounter Orders Medications Ordered That Amaury ht Not Have Been Administered Count Last Ordered Date First Ordered Date ipratropium-albuteroL (DUO-N EB) 0.5-2.5 mg/3 mL nebulizer solution 3 mL 1 06/18/2022 hydrALAZINE (APRESOLINE) injection 10 mg 1 06/13/2022 albuterol 2.5 mg /3 mL (0.08 3 %) nebulizer solution 2.5 mg 1 06/12/2022 diphenhydrAMINE (BENADRYL) i njection 12.5 mg 1 06/12/2022 EPINEPHrine syringe (ADRENALIN) 0.1 mg/mL 1 06/12/2022 EPINEPHrine syringe (ADRENAL IN) 0.1 [...] ondansetron (ZOFRAN) injection 4 mg 1 06/12 sodium chloride 0.9% infusion 1 06/12/2022 Diet Count Last Ordered Date First [...] 06/12/2022 documented in this encounter Care Teams Grain Sampler Relationship Specialty Start Date End Date Nickie Negron MD [address] [facility] [address] [place] [address] PCP - General 01/13/19 documented as of this encounter
--- OUTSIDE RECORDS SUMMARY | 2024-10-27 10:55 | XMS_ITS | Encounter Summary ---
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 VM left with call back number provided. Alyson Agosto RN 06/04/22 1434 documented in this encounter Plan of Treatment Not on file documented as of this encounter Visit Diagnoses Not on filedocumented in this encounter Care Teams Body Masker Relationship Specialty Start Date End Date Nickie Negron MD [address] [address] PCP - General 01/13/19 documented as of this encounter
--- OUTSIDE RECORDS SUMMARY | 2024-10-27 10:55 | XMS_ITS | Encounter Summary ---
Author Organization [facility] Healthcare Address [address] [place] [address] Care Team Providers Care Aeroplane Pilot Name Role Phone Nickie Negron MD Primary Care Provider [phone]- [phone] Reason for Referral * Diagnostic Imaging (Routine) - Closed Specialty Diagnoses / Procedures Referred By Roula mcmillan Referred To Contact Diagnoses Aftercare following surgery of the circulatory system, NEC Procedures US Arterial Doppler Lower Extremity Bilateral Solomon Martinez MD [address] [place] [address] [address] [address] Phone: tel: fax: [facility] Office Building [address] [place] [phone] Referral ID Status Reason Start Date Expiration Date Visits Re quested Visits Authorized [id number] Closed 04/10/2021 05/10/2022 1 1 Reason for Visit * Diagnostic Imaging (Routine) - Closed Specialty Diagnoses / Procedures Referred By Roula mcmillan Referred To Contact Diagnoses Aftercare following surgery of the circulatory system, NEC Procedures US Arterial Doppler Lower Extremity Bilateral Solomon Martinez MD [address] [facility] [address] [place] [address] Phone: tel: fax: [facility] Medical Office Building [address] [place] [phone] Referral ID Status Reason Start Date Expiration Date Visits Re quested Visits Authorized [id number] Closed 04/10/2021 05/10/2022 1 1 Encounter Details Date Type Department Care Team (Latest Contact Info) Description 05/18/2021 9:00 AM CDT - 05/18/2021 11:59 PM CDT Hospital Encounter [facility] Medical Office Building [address] [address] Aftercare following surgery of the circulatory system, NEC Discharge Disposition: Discharge to home or self [...] on file 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 11/20/2016 2 influenza trivalent [id number] (Fluad 3902-4855, 65 yr up,,PF,) 45 mcg (15 mcg x 3)/0.5 mL syringe Fluad 65yr up(PF)45 mcg(15 mcgx3)/0.5 mL intramuscular syringe ADM 0.5ML IM UTD 2 levothyroxine (SYNTHROID) 125 mcg tablet Take 1 tablet (125 mcg total) by mouth forms analysis manager before breakfast 4 triamcinolone (KENALOG) 0.1 % [...] BILATERAL Schedule Routine, Read Routine (OP Routine) 05/18/2021 11:11 AM CDT Aftercare following surgery of the circulatory system, NEC documented in this encounter Results * US Arterial Doppler Lower Extremity Bilateral (05/18/2021 11:11 AM CDT) Anatomical Region Laterality Modality Vascular Bilateral Ultrasound 05/18/2021 Narrative 05/20/2021 12:01 PM CDT [employer] Job ID: [id number] [employer] Document ID: [id number] Dictated date/time: [id number] LOWER EXTREMITY ARTERIAL DOPPLER STUDY REASON FOR [...] of moderate severity. JOB ID/VF JOB ID: ??[id number] us Solomon Martinez MD IMG US PROCEDURES Final Re sult documented in this encounter Visit Diagnoses Diagnosis Aftercare following surgery of the circulatory system, NEC documented in this encounter Care Teams Aeroplane Pilot Relationship Specialty Start Date End Date Nickie Negron MD [address] [facility] [address] [place] [address] PCP - General 01/13/19 documented as of this encounter
--- OUTSIDE RECORDS SUMMARY | 2024-10-27 10:55 | XMS_ITS | Encounter Summary ---
Author Organization [facility] Healthcare Address [address] [place] [address] Care Team Providers Care Pattern Marking Supervisor Name Role Phone Nickie Negron MD Primary Care Provider +1- [phone] Reason for Referral * Diagnostic Imaging (Routine) - Closed Specialty Diagnoses / Procedures Referred By Roula mcmillan Referred To Contact Diagnoses Bilateral carotid artery occlusion Procedures US Carotids Duplex Bilateral Solomon Martinez MD [address] [place] [address] [address] [address] Phone: tel: fax: [facility] Office Building [address] [place] [phone] Referral ID Status Reason Start Date Expiration Date Visits Re quested Visits Authorized [id number] Closed 08/16/2021 09/15/2022 1 1 Reason for Visit * Diagnostic Imaging (Routine) - Closed Specialty Diagnoses / Procedures Referred By Roula mcmillan Referred To Contact Diagnoses Bilateral carotid artery occlusion Procedures US Carotids Duplex Bilateral Solomon Martinez MD [address] [place] [address] [address] [address] Phone: tel: fax: [facility] Medical Office Building [address] [place] [phone] Referral ID Status Reason Start Date Expiration Date Visits Re quested Visits Authorized [id number] Closed 08/16/2021 09/15/2022 1 1 Encounter Details Date Type Department Care Team (Latest Contact Info) Description 08/17/2021 8:55 AM CDT - 08/17/2021 11:59 PM CDT Hospital Encounter [facility] Medical Office Building [address] [place] [address] Bilateral carotid artery occlusion Discharge Disposition: Discharge [...] on file 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 Gender Identity Not on file Sexual [...] mg total) by mouth nightly 05/19/2019 vit C,E-Tc-bxrhw-lut ein-zeaxan (PreserVision AREDS-2) 250-90-40-1 mg capsule Take 1 capsule by mouth every 12 hours albuterol HFA (PROVENTIL HFA,VENTOLIN HFA,PROAIR HFA) 90 mcg/actuation inhaler Inhale 2 puffs every 8 (eight) hours as needed fluticasone propionate (FLONASE) 50 mcg/actuation nasal spray Administer 1 spray into each nostril daily as needed aspirin 81 mg enteric coated tablet Take 81 mg by mouth daily 04/18/2020 2 carvediloL (COREG) 3.125 mg tablet carvedilol 3.125 mg tablet 2 cholecalciferol (VITAMIN D-3) 25 mcg (1,000 unit) tablet Take 1 tablet (1,000 Units total) by mouth daily 4 ciprofloxacin (CIPRO) 250 mg tablet ciprofloxacin 250 mg tablet TAKE 1 TABLET BY MOUTH TWICE DAILY 2 clopidogrel (PLAVIX) 75 mg tablet Take 75 mg by mouth daily 2 denosumab (Prolia) 60 mg/mL syringe Inject 1 mL by subcutaneous route as directed for 180 days. 11/20/2016 2 influenza trivalent [id number] (Fluad 5861-1916, 65 yr up,,PF,) 45 mcg (15 mcg x 3)/0.5 mL syringe Fluad 65yr up(PF)45 mcg(15 mcgx3)/0.5 mL intramuscular syringe ADM 0.5ML IM UTD 2 levothyroxine (SYNTHROID) 125 mcg tablet Take 1 tablet (125 mcg total) by mouth envelope cutter before breakfast 4 mesalamine (Asacol HD) 800 mg EC tablet Asacol HD 800 mg tablet,delayed release TAKE 1 TABLET TWICE A DAY 2 sodium bicarbonate 650 mg tablet Take 1,300 mg by mouth 3 (three) times a day 06/30/2021 2 traMADoL (ULTRAM) 50 mg tablet tramadol 50 mg tablet TAKE 1 TABLET BY MOUTH EVERY 6 HOURS NEEDED FOR PAIN 2 triamcinolone (KENALOG) 0.1 % cream 1 application [...] BILATERAL Schedule Routine, Read Routine (OP Routine) 08/17/2021 10:05 AM CDT Bilateral carotid artery occlusion documented in this encounter Results * US Carotids Duplex Bilateral (08/17/2021 10:05 AM CDT) Anatomical Region Laterality Modality Vascular Bilateral Ultrasound 08/17/2021 Narrative 08/21/2021 8:03 AM CDT [employer] Job ID: [id number] [employer] Document ID: [id number] Dictated date/time: [id number] CAROTID DUPLEX REASON FOR EXAM Carotid stenosis. [...] bilateral vertebral arteries. JOB ID/VF JOB ID: [id number] Solomon Martinez MD IMG US PROCEDURES Final Re sult documented in this encounter Visit Diagnoses Diagnosis Bilateral carotid artery occlusion Occlusion and stenosis of carotid artery without mention of cerebral infarction documented in this encounter Care Teams Pattern Marking Supervisor Relationship Specialty Start Date End Date Nickie Negron MD [address] [place] [address] PCP - General 01/13/19 documented as of this encounter
--- OUTSIDE RECORDS SUMMARY | 2024-10-27 10:55 | XMS_ITS | Encounter Summary ---
Author Organization [facility] Address [address] [facility] [address] [place] [address] Care Team Providers Care Hat Marker Name Role Phone Nickie Negron MD Primary Care Provider [phone]- [phone] Reason for Referral * Diagnostic Imaging (Routine) - Closed Specialty Diagnoses / Procedures Referred By Roula mcmillan Referred To Contact Diagnoses Bilateral carotid artery occlusion Procedures US Carotids Duplex Bilateral Mercedez Singh NP Phone: tel: fax: [facility] Medical Office Building [address] [place] [phone] Referral ID Status Reason Start Date Expiration Date Visits Re quested Visits Authorized [id number] Closed 02/21/2022 03/23/2023 1 1 * Diagnostic Imaging (Routine) - Closed Specialty Diagnoses / Procedures Referred By Roula mcmillan Referred To Contact Diagnoses Atherosclerosis of h[place]ap[place] artery of both lower extremities with intermittent claudication (HCC) Procedures US Arterial Doppler Lower Extremity Bilateral Mercedez Singh NP Phone: tel: fax: [facility] Medical Office Building [address] [place] [phone] Referral ID Status Reason Start Date Expiration Date Visits Re quested Visits Authorized [id number] Closed 02/21/2022 03/23/2023 1 1 Reason for Visit * Reason Comments Follow-up 6m bilateral carotid artery occlusion, claudication, evelia carotid artery stenosis, pvd, sds Encounter Details Date Type Department Care Team (Late st Contact Info) Description 02/21/2022 10:30 AM CDT Office Visit [facility] Vascular and Vein Surgery [address] [facility] [address] [place] [phone] Mercedez Singh NP [address] [facility] [address] [place] [address] Occlusion of left carotid artery (Primary Dx); Carotid artery stenosis, unilateral; Peripheral vascular disease (CMS/HCC) (HCC); Moderate essential hypertension; Mixed hyperlipidemia; Bilateral carotid artery occlusion; Atherosclerosis of [place] artery of both lower extremities with intermittent claudication (CMS/HCC) ([facility]) Social History Tobacco Use Types Packs/Day Years [...] on file 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 Gender Identity Not on file Sexual Orientation Not on file documented as of this encounter Last Filed Vital Signs Vital Sign Reading Time Taken Comments Blood Pressure 150/80 02/21/2022 10:22 AM CDT Pulse 78 02/21/2022 10:22 AM CDT Temperature - - Respiratory Rate - - Oxygen Saturation - - Inhaled Oxygen Concentration - - Weight 66.2 kg (146 lb) 02/21/2022 10:22 AM CDT Height 162.6 cm (5' 4 ) 02/21/2022 10:22 AM CDT Body Mass Index 25.06 02/21/2022 10:22 AM CDT documented in this encounter Progress Notes * Mercedez Singh NP - 02/21/2022 10:30 AM CDT Images from the original note were not included. Subjective/Objective Patient ID: Julius Andrade is a 71 y.o. male. Chief Complaint Follow-up (6m bilateral carotid artery occlusion, claudication, evelia carotid artery stenosis, pvd, sds) History of Present Illness The patient is a 71-year-old male with a history of hypertension, hyperlipidemia, lower extremity arterial occlusive disease, and carotid disease who returns today for scheduled follow-up. Patient denies any symptoms suggestive of claudication, ischemic rest pain or ulcerations bilateral lower extremities. He also denies new focal or lateralizing neurological defects, amaurosis fugax, or speech disturbances. Patient has been compliant with his daily medication therapy to include dual anti-platelet therapy, hypertensive medications, and statin therapy. He has no other concerns at this time. Current Outpatient Medications: ??? acetaminophen (TYLENOL) 500 mg tablet, 500 mg every 8 (eight) hours, Disp: , Rfl: ??? albuterol HFA (PROVENTIL HFA,VENTOLIN HFA,PROAIR HFA) 90 mcg/actuation inhaler, every 8 (eight)hours, Disp: , Rfl: ??? Asacol HD 800 mg EC tablet, Take 800 mg by mouth 2 (two) times a day, Disp: , Rfl: ??? aspirin 81 mg enteric coated tablet, Take 81 mg by mouth daily, Disp: , Rfl: ??? buPROPion XL (WELLBUTRIN XL) 150 mg 24 hr tablet, Take 1 tablet by mouth daily, Disp: , Rfl: ??? carvediloL (COREG) 3.125 mg tablet, Take 3.125 mg by mouth daily, Disp: , Rfl: ??? cholecalciferol (VITAMIN D-3) 5,000 unit tablet, 5,000 Units daily , Disp: , Rfl: ??? cholestyramine (QUESTRAN) 4 gram powder, Take 4 g by mouth nightly as needed, Disp: , Rfl: ??? cilostazol (PLETAL) 50 mg tablet, cilostazol 50 mg tablet TAKE 1 TABLET TWICE A DAY, Disp: , Rfl: ??? clopidogrel (PLAVIX) 75 [...] spray, Administer 1 spray into each nostril daily, Disp: , Rfl: ??? folic acid (FOLVITE) 1 mg tablet, Take 1 mg by mouth daily, Disp: , Rfl: ??? levothyroxine (SYNTHROID) 125 mcg tablet, Take 125 mcg by mouth daily , Disp: , Rfl: ??? pravastatin (PRAVACHOL) 10 mg tablet, Take 10 mg by mouth daily , Disp: , Rfl: ??? sodium bicarbonate 650 mg tablet, Take 2 tablets (1,300 mg total) by mouth 3 (three) times a day, Disp: 540 tablet, Rfl: 3 ??? triamcinolone (KENALOG) 0.1 % cream, 1 application as needed, Disp: , Rfl: ??? VIAGRA 50 mg tablet, Take 50 mg by mouth as needed , Disp: , Rfl: ??? vit C,C-Yw-pltci-lutein-zeaxan (PreserVision AREDS-2) 250-90-40-1 mg capsule, every 12 hours, Disp: , Rfl: ??? diclofenac sodium (VOLTAREN) 1 % gel, diclofenac 1 % topical gel APPLY 2 GRAMS TOPICALLY TO THEAFFECTED AREA FOUR TIMES DAILY (Patient not taking: Reported on 02/21/2022), Disp: , Rfl: ??? influenza trivalent 0069-2638 (Fluad 0160-2769, 65 yr up,,PF,) 45 mcg (15 mcg x 3)/0.5 mL syringe, Fluad 65yr up(PF)45 mcg(15 mcgx3)/0.5 mL intramuscular syringe ADM 0.5ML IM UTD (Patientnot taking: No sig reported), Disp: , Rfl: Allergies Allergen Reactions ??? [...] Social History Socioeconomic History ??? Marital status: Tobacco Use ??? Smoking status: Former Smoker ??? Smokeless tobacco: Never Used Substance and Sexual Activity ??? Alcohol use: Not Currently ??? Drug use: Not Currently ROS Constitutional: Negative for activity change, chills, [...] Extremities: Femoral, popliteal and distal pulses palpable bilaterally. No edema or ulcerations arenoted. Neurological: Cranial nerves 2-12 intact. Strength and sensation intact bilaterally. Skin: Warm and dry. No rashes. No discoloration. Psychiatric: Appropriate mood and affect. Diagnostic Imaging The following diagnostic imaging was reviewed and interpreted by myself. Carotid duplex performed on 02/21/2022 reveals chronic lead occluded left internal carotid artery. Patient has mild right carotid artery stenosis with less than 49% stenosis. Arterial Doppler performed on 02/21/2022 reveals triphasic waveforms throughout bilateral lower extremities with falsely elevated ABIs. Assessment/Plan Diagnoses and all orders for this visit: Occlusion of left carotid artery (I65.22) (Primary) Assessment & Plan: Impression: Patient has chronic occlusion to the left carotid artery. Plan: Continue risk factor modifications. Patient to follow-up in 1 year for re- evaluation with carotid duplex. Carotid artery stenosis, unilateral (I65.29) Assessment & Plan: Impression: Patient has mild right internal carotid artery stenosis as seen on carotid duplex, he remains asymptomatic. Plan: Continue ongoing risk factor modifications. Patient to follow-up in 1 year for re-evaluation with carotid duplex. Peripheral vascular disease ([facility]) (HCC) (I73.9) Assessment & Plan: Impression: Patient has a history of atherectomy balloon angioplasty to left popliteal artery in 2014. Patient denies any symptoms of claudication, ischemic rest pain or ulcerations. Arterial Dopplerreveals triphasic waveforms to bilateral lower extremities with falsely elevated ABIs. Plan: Continue ongoing risk factor modifications. Patient to follow-up in 1 year for re-evaluation with repeat arterial Doppler bilaterally. Moderate essential hypertension (I10) Assessment & Plan: Impression: Chronic stable hypertension, controlled medications. Blood pressure is is stable this office visit. Plan: Medications reviewed, no changes made. Continue blood pressure management as per primary careprovider. Mixed hyperlipidemia (E78.2) Assessment & Plan: Impression: Chronic stable hyperlipidemia, controlled with statin therapy. Plan: Medications reviewed, no changes made. Continue statin therapy as per primary care provider. Portions of this note was created with [employer] voice recognition software. Lawyers variances may be present. Mercedez Singh NP Cosigned by Solomon Martinez MD at 02/21/2022 11:01 AM CDT documented in this encounter Miscellaneous Notes * Assessment & Plan Note - Mercedez Singh NP - 02/21/2022 10:54 AM CDT Associated Problem(s): Hyperlipidemia Impression: Chronic stable hyperlipidemia, controlled with statin therapy. Plan: Medications reviewed, no changes made. Continue statin therapy as per primary care provider. * Assessment & Plan Note - Mercedez Singh NP - 02/21/2022 10:54 AM CDT Associated Problem(s): Moderate essential hypertension Impression: Chronic stable hypertension, controlled medications. Blood pressure is is stable this office visit. Plan: Medications reviewed, no changes made. Continue blood pressure management as per primary careprovider. * Assessment & Plan Note - Mercedez Singh NP - 02/21/2022 10:53 AM CDT Associated Problem(s): Carotid artery stenosis, unilateral Impression: Patient has mild right internal carotid artery stenosis as seen on carotid duplex, he remains asymptomatic. Plan: Continue ongoing risk factor modifications. Patient to follow-up in 1 year for re-evaluation with carotid duplex. * Assessment & Plan Note - Mercedez Singh NP - 02/21/2022 10:52 AM CDT Associated Problem(s): Occlusion of left carotid artery Impression: Patient has chronic occlusion to the left carotid artery. Plan: Continue risk factor modifications. Patient to follow-up in 1 year for re- evaluation with carotid duplex. * Assessment & Plan Note - Mercedez Singh NP - 02/21/2022 10:51 AM CDT Associated Problem(s): Peripheral vascular disease (CMS/HCC) (HCC) Impression: Patient has a history of atherectomy balloon angioplasty to left popliteal artery in 2014. Patient denies any symptoms of claudication, ischemic rest pain or ulcerations. Arterial Dopplerreveals triphasic waveforms to bilateral lower extremities with falsely elevated ABIs. Plan: Continue ongoing risk factor modifications. Patient to follow-up in 1 year for re-evaluation with repeat arterial Doppler bilaterally. * Addendum Note - Margarita Jacobsen MA - 02/21/2022 10:30 AM CDTAddended by: MARGARITA JACOBSEN on: 02/21/2022 03:43 PM Modules accepted: Orders documented in this encounter Plan of Treatment Not on file documented as of this encounter Results * US Carotids Duplex Bilateral (02/28/2023 9:16 AM CDT) Anatomical Region Laterality Modality Vascular Bilateral Ultrasound 02/28/2023 Narrative 03/04/2023 8:05 AM CDT [employer] Job ID: [id number] [employer] Document ID: [id number] Dictated date/time: [id number] CAROTID DUPLEX REASON FOR EXAM Carotid stenosis. [...] bilateral vertebral arteries. Job ID/Internal Job ID: ??[id number] us Mercedez Singh NP IMG US PROCEDURES Final R esult * US Arterial Doppler Lower Extremity Bilateral (02/28/2023 9:15 AM CDT) Anatomical Region Laterality Modality Vascular Bilateral Ultrasound 02/28/2023 Narrative 03/04/2023 8:05 AM CDT [employer] Job ID: [id number] [employer] Document ID: [id number] Dictated date/time: [id number] LOWER EXTREMITY ARTERIAL DOPPLER STUDY REASON FOR [...] healing potential good. Job ID/Internal Job ID: ??[id number] us Mercedez Singh ECONOMICS ANALYST IMG US PROCEDURES Final R esult documented in this encounter Visit Diagnoses Diagnosis Occlusion of left carotid artery- Primary Occlusion and stenosis of carotid artery without mention of cerebral infarction Carotid artery stenosis, unilateral Peripheral vascular disease (HCC) Unspecified peripheral vascular disease Moderate essential hypertension Mixed hyperlipidemia Bilateral carotid artery occlusion Occlusion and stenosis of carotid artery without mention of cerebral infarction Atherosclerosis of h[place]apai artery of both lower extremities with intermittent claudication (HCC) Bilateral carotid artery occlusion Occlusion and stenosis of carotid artery without mention of cerebral infarction Atherosclerosis of h[place]apai artery of both lower extremities with intermittent claudication (HCC) documented in this encounter Historical Medications * This list may reflect changes made after this encounter. diclofenac sodium (VOLTAREN) 1 % gel Apply 4 g topically 4 (four) times a day as needed 2 added in this encounter Care Teams Hat Marker Relationship Specialty Start Date End Date Nickie Negron MD [address] [address] PCP - General 01/13/19 documented as of this encounter
--- OUTSIDE RECORDS SUMMARY | 2024-10-27 10:56 | XMS_ITS | Encounter Summary ---
Author Organization [facility] Address [address] [facility] [address] [place] [address] Care Team Providers Care Label Paster Name Role Phone Nickie Negron MD Primary Care Provider +1- [phone] Reason for Visit * Reason Comments Chronic Kidney Disease Encounter Details Date Type Department Care Team (Late st Contact Info) Description 07/29/2020 9:45 AM CDT Office Visit [facility] Nephrology [address] [facility] [address] [place] [address] Shree Gutiérrez MD [facility] [address] [address] Stage 3b chronic kidney disease (Primary Dx); Metabolic acidosis; Crohn's disease of small intestine with other complication (CMS/HCC) Social History Tobacco Use Types Packs/Day Years [...] on file 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 Gender Identity Not on file Sexual Orientation Not on file documented as of this encounter Last Filed Vital Signs Vital Sign Reading Time Taken Comments Blood Pressure 125/69 07/29/2020 9:35 AM CDT Pulse 80 07/29/2020 9:35 AM CDT Temperature 36.5 ??C (97.7 ??F) 07/29/2020 9:35 AM CD T Respiratory Rate - - Oxygen Saturation - - Inhaled Oxygen Concentration - - Weight 61.4 kg (135 lb 6.4 oz) 07/29/2020 9:35 A M CDT Height 162.6 cm (5' 4 ) 07/29/2020 9:35 AM CDT Body Mass Index 23.24 07/29/2020 9:35 AM CDT documented in this encounter Progress Notes * Shree Gutiérrez MD - 07/29/2020 9:45 AM CDT Images from the original note were not included. Subjective/Objective Patient ID: Julius Andrade is a 69 y.o. male. Chief Complaint Chronic Kidney Disease [...] He responded again to IV fluid resuscitation. Recent labs showed a serum creatinine increasing to 3. He was contacted and was having increased GIissues at that time period repeat labs show a serum creatinine of 2.3 and he has been doing better with no other acute issues reported Review of Systems Constitutional: Negative for appetite [...] as directed for 180 days. ??? fluticasone propion-salmeterol (ADVAIR DISKUS) 250-50 mcg/dose diskus inhaler Inhale 1 puff 2 (two) times a day ??? fluticasone propionate (FLONASE) 50 mcg/actuation nasal spray fluticasone propionate 50 mcg/actuation nasal spray,suspension daily ??? folic acid (FOLVITE) 1 mg tablet TK 1 T PO QD ??? influenza trivalent 1780-2538 (Fluad , 65 yr up,,PF,) 45 mcg (15 mcg x 3)/0.5 mL syringe Fluad 65yr up(PF)45 mcg(15 mcgx3)/0.5 mL intramuscular syringe ADM 0.5ML IM UTD ??? levothyroxine (SYNTHROID) 112 mcg tablet Take 112 mcg by mouth daily ??? mesalamine (ASACOL HD) 800 mg EC tablet mesalamine 800 mg tablet,delayed release TAKE 1 TABLET TWICE A DAY ??? pravastatin (PRAVACHOL) 10 mg tablet Take 10 mg by mouth daily ??? sodium bicarbonate 650 mg tablet Take 2 tablets (1,300 mg total) by mouth 3 (three) times a [id number] tablet PRN ??? triamcinolone (KENALOG) 0.1 % cream ??? VIAGRA 50 mg tablet Take 50 mg by mouth as needed ??? vitamins A,C,E-btma-kgaywq (PRESERVISION AREDS) 14,320-226-200 lcnb-yt-kktm capsule 2 (two) times a day No current facility-administered medications for this visit. Allergies Allergen Reactions ??? Gluten ??? Lactose Stomach upset Vitals BP 125/69 (BP Location: Left arm, Patient Position: Sitting) Pulse 80 Temp 36.5 ??C (97.7 ??F) (Skin) Ht 162.6 cm (5' 4 ) Wt 61.4 kg (135 lb 6.4 oz) BMI 23.24 kg/m?? Physical Exam Constitutional: Thin but in [...] (N18.32) (Primary) - Basic metabolic panel; Future - Magnesium; Future - CBC with auto differential; Future - PTH; Future Metabolic acidosis (E87.2) Crohn's disease of small intestine with other complication (CMS/[facility]) (K50.018) CKD following episodes of acute kidney failure. Recent acute on chronic kidney failure with improved serum creatinine on repeat labs. GI issues stable at present. Continues on sodium bicarbonate withmetabolic acidosis related to his renal and GI issues. I am discontinuing his lisinopril with ongoing concerns regarding volume depletion and worsening kidney function. He will monitor his blood pressure at home and notify the office if any issues. I will repeat labs in approximately 1 month including routine CKD labs. documented in this encounter Plan of Treatment Scheduled Orders Name Type Priority Associated Diagnoses Orde r Schedule Basic metabolic panel Lab Routine Stage 3b chronic kidney disease (CMS/HCC) Expected: 08/29/2020, Expires: 07/29/2021 Magnesium Lab Routine Stage 3b chronic kidney disease ([facility]/HCC) Expected: 08/29/2020, Expires: 07/29/2021 CBC with auto differential Lab Routine Stage 3b chronic kidney disease (CMS/HCC) Expected: 08/29/2020, Expires: 07/29/2021 PTH Lab Routine Stage 3b chronic kidney disease ([facility]/HCC) Expected: 08/29/2020, Expires: 07/29/2021 documented as of this encounter Visit Diagnoses Diagnosis Stage 3b chronic kidney disease (HCC)- Primary Metabolic acidosis Acidosis Crohn's disease of small intestine with other complication (HCC) documented in this encounter Discontinued Medications Medication Sig Discontinue Reason Start Date End Da te allopurinoL (ZYLOPRIM) 100 mg tablet 04/18/2020 07/29/2020 febuxostat (ULORIC) 40 mg tablet Uloric 40 mg tablet TAKE 1 TABLET DAILY 07/29/2020 teriparatide (FORTEO) 20 mcg/dose - 600 mcg/2.4 mL injection Forteo 20 mcg/dose (600 mcg/2.4 mL) subcutaneous pen injector daily 07/29/2020 lisinopril (PRINIVIL,ZESTRIL) 10 mg tablet Take 10 mg by mouth daily Therapy completed 05/19/2019 07/29/2020 documented as of this encounter Care Teams Label Paster Relationship Specialty Start Date End Date Nickie Negron MD [address] [facility] [address] [place] [address] PCP - General 01/13/19 documented as of this encounter
--- OUTSIDE RECORDS SUMMARY | 2024-10-27 10:56 | XMS_ITS | Encounter Summary ---
Author Organization [facility] Address [address] [place] [address] Care Team Providers Care Block Placer Name Role Phone Nickie Negron MD Primary Care Provider +1- [phone] Encounter Details Date Type Department Care Team (Late st Contact Info) Description 07/27/2020 Telephone [facility] Nephrology [address] [place] [address] Shree Gutiérrez MD [address] [address] Social History Tobacco Use Types Packs/Day Years Used Date Smoking Tobacco: Former Alcohol Use Standard Drinks/Week Comments Never 0 (1 standard drink = 0.6 oz pur e alcohol) AUDIT-C Answer Date Recorded Frequency of Alcohol Consumption Never 07/24/2019 Average Number of Drinks Not on file 019 Frequency of Binge Drinking Not on file 06/29 Sex and Gender Information Value Date Recorded Sex Assigned at Not on file 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 Pt informed to have a repeat lab for BMP done in 1 month. Order faxed to PCP office. * Telephone Encounter - Shree Gutiérrez MD - 07/27/2020 3:20 PM CDT Labs better, please repeat a BMP in 1 month. Thank you documented in this encounter Plan of Treatment Scheduled Orders Name Type Priority Associated Diagnoses Orde r Schedule Basic metabolic panel Lab Routine CRD (chronic renal disease), stage III Metabolic acidosis Expected: 08/26/2020, Expires: 07/27/2021 documented as of this encounter Visit Diagnoses Diagnosis CRD (chronic renal disease), stage III- Primary Chronic kidney disease, Stage III (moderate) Metabolic acidosis Acidosis documented in this encounter Care Teams Block Placer Relationship Specialty Start Date End Date Nickie Negron MD [address] [place] [address] PCP - General 01/13/19 documented as of this encounter
--- OUTSIDE RECORDS SUMMARY | 2024-10-27 10:56 | XMS_ITS | Encounter Summary ---
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) Procedures US Arterial Doppler Lower Extremity Bilateral Solomon Martinez MD [address] [facility] [place] [address] Phone: tel: fax: Referral ID Status Reason Start Date Expiration Date Visits Re quested Visits Authorized [id number] Closed 12/30/2019 07/10/2021 1 1 Encounter Details Date Type Department Care Team (Latest Contact Info) Description 05/10/2020 10:47 AM CDT Hospital Encounter [facility] INTERIM Nickie Negron MD [address] [facility] [address] [place] [address] Solomon Martinez MD [address] [place], [place] [id number] Atherosclerosis of [place] artery of left lower extremity with intermittent claudication (CMS/HCC) Social History Tobacco Use Types Packs/Day [...] on file 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 11/20/2016 2 febuxostat (ULORIC) 40 mg tablet Uloric 40 mg tablet TAKE 1 TABLET DAILY 0 fluticasone propion-salmeter ol (ADVAIR DISKUS) 250-50 mcg/dose diskus inhaler Inhale 1 puff 2 (two) times a day 1 levothyroxine (SYNTHROID) 125 mcg tablet Take 1 tablet (125 mcg total) by mouth die developer before breakfast 4 lisinopril (PRINIVIL,ZESTRI L) 10 mg tablet Take 10 mg by mouth daily 05/19/2019 0 mesalamine (ASACOL HD) 800 mg EC tablet mesalamine 800 mg tablet,delayed release TAKE 1 TABLET TWICE A DAY 1 teriparatide (FORTEO) 20 mcg/dose - 600 mcg/2.4 mL injection Forteo 20 mcg/dose (600 mcg/2.4 mL) subcutaneous pen injector daily 0 triamcinolone (KENALOG) 0.1 % cream 1 application as needed 04/27/2020 2 VIAGRA 50 mg tablet Take 1 tablet (50 mg total) by mouth as needed 07/13/2019 4 vitamins A,C,R-fyip-azgab r (PRESERVISION AREDS) 14,320-226-200 rduu-dv-eybj capsule 2 (two) times a day 1 documented as of this encounter Plan of Treatment Not on file documented as of this encounter Procedures Procedure Name Priority Date/Time Associated Diagnosis Comments VL US ARTERIAL DUPLEX LOWER EXTREMITY BILATERAL Schedule Routine, Read Routine (OP Routine) 05/10/2020 10:50 AM CDT documented in this encounter Results * US Arterial Duplex Lower Extremity Bilateral (05/10/2020 10:50 AM CDT) Anatomical Region Laterality Modality Vascular Bilateral Ultrasound 05/12/2020 11:3 7 AM CDT Narrative 05/12/2020 1:17 PM CDT ? Patient Name: JULIUS ANDRADE ? MR#: [id number] ?? [id number] ? Status: REG CLI ? D.O.B: 1950 Age: ??69 ?Sex: Male ? ADM/SER Dt: 05/10/ ?Disch Dt: ? LOC: H.CVU ? Ordering Phy: Solomon Martinez MD ? Order #[id number] ? Arterial Doppler Legs ?? Solomon Martinez MD ? Signed ?? DATE OF SERVICE: ?? 05/10/2020 ? Lower extremity arterial Doppler. ? REASON FOR EXAM: ??Claudication. ? COMMENTS ON THE RIGHT: ??Brachial pressure 126. ??PT/DP noncompressible. ??Digital pressure 72. ?? Waveform triphasic at the common femoral, mono to biphasic at the popliteal and tibial level. ? COMMENTS ON THE LEFT: ??PT and DP noncompressible. ??Digital pressure 66. ??Waveform triphasic at the common femoral, biphasic at the popliteal, monophasic at the tibial level. ? OVERALL IMPRESSION: ??Ankle-brachial index is unreliable secondary to vessel noncompressibility. ?? Digital pressures suggest adequate wound healing. ??Waveforms suggest probable superficial femoral artery level disease. ? NTS ? Job: [id number] ? Dictated By: Solomon Martinez MD ?? Dictated For: Solomon ??MD Juan ? <Electronically signed by Solomon Martinez MD> ? 05/16/20 1213 ?? Resulting Agency Comment O Procedure Note Solomon Martinez MD - 05/16/2020 Patient Name: ASHLEEJULIUS Medina #: [id number] Status: REG CLI D.O.B: 1950 Age: 69Sex: Male ADM/SER Dt: 05/10/20 Disch Dt:LOC: [facility] Phy: Solomon Martinez MD Order #[id number] Arterial Doppler Legs Solomon Martinez MD Signed DATE OF SERVICE: 05/10/2020 Lower extremity arterial Doppler. REASON FOR EXAM: Claudication. COMMENTS ON THE RIGHT: Brachial pressure 126. PT/DP noncompressible.Digital pressure 72. Waveform triphasic at the common femoral, mono to biphasic at thepopliteal and tibial level. COMMENTS ON THE LEFT: PT and DP noncompressible. Digital pressure 66.Waveform triphasic at the common femoral, biphasic at the popliteal, monophasic at the tibial level. OVERALL IMPRESSION: Ankle-brachial index is unreliable secondary tovessel noncompressibility. Digital pressures suggest adequate wound healing. Waveforms suggestprobable superficial femoral artery level disease. 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
--- OUTSIDE RECORDS SUMMARY | 2024-10-27 10:56 | XMS_ITS | Encounter Summary ---
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 Gender Identity Not on file Sexual Orientation [...] Place 5,000 mcg under the tongue daily pravastatin (PRAVACHOL) 10 mg tablet Take 1 [...] 1 tablet (125 mcg total) by mouth retread builder before breakfast 4 lisinopril (PRINIVIL,ZESTRI L) 10 mg tablet Take 10 mg by mouth daily 05/19/2019 0 mesalamine (ASACOL HD) 800 mg EC tablet mesalamine 800 mg tablet,delayed release TAKE 1 TABLET TWICE A DAY 1 teriparatide (FORTEO) 20 mcg/dose - 600 mcg/2.4 mL injection Forteo 20 mcg/dose (600 mcg/2.4 mL) subcutaneous pen injector daily 0 VIAGRA 50 mg tablet Take 1 tablet (50 mg total) by mouth as needed 07/13/2019 4 vitamins A,C,K-rqqw-pqkwi r (PRESERVISION AREDS) 14,092-226-200 rzzr-ln-nwly capsule 2 (two) times a day 1 documented as of this encounter Plan of Treatment Not on file documented as of this encounter Procedures Procedure Name Priority Date/Time Associated Diagnosis Comments XR ABDOMEN AP 1 VIEW 01/20/2020 1:57 PM CDT documented in this encounter Results * XR Abdomen Ap 1 Vw (01/20/2020 1:57 PM CDT) Anatomical Region Laterality Modality Body, Abdomen N/A Radiographic Leola ging 01/20/2020 2:22 PM CDT Narrative 01/20/2020 2:25 PM CDT Patient Name: JULIUS ANDRADE ?Ordering Dr: Nickie Negron MD ?? D.O.B: 1950 ? Exam Date: 01/20/20 ?? 1357 ?? Age: 69 ?Sex: Male ? MR#: [id number] ?? Loc: ? RADIOLOGY REPORT ?? Order #[id number] ?? Radiology ? Abdomen 1 View ? Signed ?? EXAM DESCRIPTION: ??Abdomen 1 View ? REASON FOR STUDY: ??Nephrolithiasis, follow-up over 1 year. ??No current ?? abdominal symptomatology. ??History of Crohn's disease for 20 years. ? TECHNIQUE: ??Supine radiographic view of the abdomen acquired. ? COMPARISON: ??11/03/2019 ? FINDINGS: ? BOWEL GAS PATTERN: Scattered non-dilated small bowel loops. Nonobstructive ?? pattern. ? SOFT TISSUES: There is a punctate calcification projecting over the lower pole ?? of the right kidney, corresponding to the 2 mm calculus demonstrated on prior ?? CT examination. ??No other definitive nephrolithiasis/urolithiasis. ??There are ?? several pelvic calcifications, presumably all phleboliths. ??Extensive ?? atherosclerotic vascular calcifications are also noted. ? BONES: Thoracic and lumbar spondylosis. 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 ??There are 3 screws traversing the left femoral neck. ??No evidence of ?? hardware complication. ? OTHER: Lung bases are grossly clear. ? IMPRESSION: ??Punctate nonobstructing right renal calculus, similar in ?? appearance compared to prior CT study. ??No other evidence of urolithiasis. ? THIS IS AN ELECTRONICALLY VERIFIED FINAL REPORT ?? 01/20/2020 2:25 PM - Electronically signed by Virginia Collado M.D. ?? Virginia Collado M.D. ? TB ?? D: ??01/20/2020 2:25 PM ?? T: ? Report ID: [id number] ?? Reading Location: ??[id number] ? REPORT ELECTRONICALLY SIGNED IN OTHER VENDOR SYSTEM ?? Resulting Agency Comment O Procedure Note Virgniia Collado MD - 01/20/2020 Patient Name: RAYMONDJULIUS Dr: Nickie Negron MDO.B: 1950 Exam Date: 01/20/20 1350 Age: 69 Sex: Male MR#: [id number] Loc: RADIOLOGY REPORT Order #[id number] Radiology Abdomen 1 View Signed EXAM DESCRIPTION: Abdomen 1 View REASON FOR STUDY: Nephrolithiasis, follow-up over 1 year. No current abdominal symptomatology. History of Crohn's disease for 20 years. TECHNIQUE: Supine radiographic view of the abdomen acquired. COMPARISON: 11/03/2019 FINDINGS: BOWEL GAS PATTERN: Scattered non-dilated small bowel loops.Nonobstructive pattern. SOFT TISSUES: There is a punctate calcification projecting over the lowerpole of the right kidney, corresponding to the 2 mm calculus demonstrated onprior CT examination. No other definitive nephrolithiasis/urolithiasis. Thereare several pelvic calcifications, presumably all phleboliths. Extensive atherosclerotic vascular calcifications are also noted. BONES: Thoracic and lumbar spondylosis. Osteoarthritis at the SI jointsand hips. There are 3 screws traversing the left femoral neck. No evidenceof hardware complication. OTHER: Lung bases are grossly clear. IMPRESSION: Punctate nonobstructing right renal calculus, similar in appearance compared to prior CT study. No other evidence ofurolithiasis. THIS IS AN ELECTRONICALLY VERIFIED FINAL REPORT 01/20/2020 2:25 PM - Electronically signed by Virginia Collado M.D. TB T: Report ID: [id number] Reading Location: [place] [address] REPORT ELECTRONICALLY SIGNED IN OTHER VENDOR SYSTEM Nickie Negron MD IMG XR PROCEDURES Final Re sult documented in this encounter Visit Diagnoses Not on filedocumented in this encounter Care Teams Sensor Operator Relationship Specialty Start Date End Date Nickie Negron MD [address] [place] [address] PCP - General 01/13/19 documented as of this encounter
--- OUTSIDE RECORDS SUMMARY | 2024-10-27 10:56 | XMS_ITS | Encounter Summary ---
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 ??Negative results should be treated as presumptive and, if inconsistent with clinical signs and symptoms or necessary for patient management, pooled samples should be tested individually. Negative results do not preclude SARS-CoV-2 infection and must not be used as the sole basis for patient management decisions. Negative results must be considered in the context of a patient? s recent exposures, history, presence of clinical signs and symptoms consistent with COVID-19. First COVID-19 test? Unknown [facility] Comment:Testing performed by : [facility], [address] [place] [address], [id number] Employeed in healthcare? Unknown [facility] Comment:Testing performed by : [facility], [address] [place] [address], [id number] status? No [facility] Comment:Testing performed by : [facility], [address] [place] [address], [phone] Group care resident? Unknown [facility] Comment:Testing performed by : [facility], [address] [place] [address], [address] Hospitalized? No [facility] Comment:Testing performed by : [facility], [address] [place] [address], [id number] Is patient in ICU? No [facility] Comment:Testing performed by : [facility], [address] [place] [address], [id number] Symptomatic as defined by CDC? No [facility] Comment:Testing performed by : [facility], [address] [place] [address], [address] Nasopharyngeal 11/18/2020 10 :54 AM EMERGENCY MANAGEMENT DIRECTOR 11/18/2020 1:24 PM EMERGENCY MANAGEMENT DIRECTOR Narrative [facility] - 11/18/2020 10:18 PM EMERGENCY MANAGEMENT DIRECTOR What is the reason for testing?->Screening prior to scheduled procedure or surgery Miguelangel Adamson MD LAB MICROBIOLOGY - GENERAL ORDERABLES Final Result [facility] [address] [facility] Department [place] [address] documented in this encounter Visit Diagnoses Diagnosis Pre-procedure lab exam- Primary Pre-procedural laboratory examination Pre-procedure lab exam Pre-procedural laboratory examination documented in this encounter Care Teams [facility] Relationship Specialty Start Date End Date Nickie Negron MD [address] [address] PCP - General 01/13/19 documented as of this encounter
--- OUTSIDE RECORDS SUMMARY | 2024-10-27 10:56 | XMS_ITS | Encounter Summary ---
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 Gender Identity Not on file Sexual Orientation Not on file documented as of this encounter Plan of Treatment Not on file documented as of this encounter Procedures Procedure Name Priority Date/Time Associated Diagnosis Comments COVID-19 CORONAVIRUS RNA Routine 11/18/2020 10:54 AM [facility] Pre-procedure lab exam documented in this encounter Results * COVID-19 Coronavirus RNA Nasopharyngeal (11/18/2020 10:54 AM [facility]) COVID-19 RNA Not Detected [facility] Comment: Testing performed as a component of [...] consistent with COVID-19. First COVID-19 test? Unknown [facility] Comment:Testing performed by : [facility], [address] [place] [address], [address] Employeed in healthcare? Unknown [facility] Comment:Testing performed by : [facility], [address] [place] [address], [address] status? No [facility] Comment:Testing performed by : [facility], [address] [place] [address], [id number] Group care resident? Unknown [facility] Comment:Testing performed by : [facility], [address] [place] [address], [phone] Hospitalized? No [facility] Comment:Testing performed by : [facility], [address] [place] [address], [address] Is patient in ICU? No [facility] Comment:Testing performed by : [facility], [address] [place] [address], [address] Symptomatic as defined by CDC? No [facility] Comment:Testing performed by : [facility], [address] [place] [address], [id number] Nasopharyngeal 11/18/2020 10 :54 AM [facility] [employer] 11/18/2020 1:24 PM [facility] Narrative [facility] - 11/18/2020 10:18 PM [facility] What is the reason for testing?->Screening prior to scheduled procedure or surgery Miguelangel Adamson MD LAB MICROBIOLOGY - GENERAL ORDERABLES Final Result [facility] [address] [facility] Department [place] [address] documented in this encounter Visit Diagnoses Diagnosis Pre-procedure lab exam Pre-procedural laboratory examination documented in this encounter Care Teams Delivery Rn Relationship Specialty Start Date End Date Nickie Negron MD [address] [facility] [address] [place] [address] PCP - General 01/13/19 documented as of this encounter
--- OUTSIDE RECORDS SUMMARY | 2024-10-27 10:56 | XMS_ITS | Encounter Summary ---
Author Organization [facility] Address [address] [place] [address] Care Team Providers Care Securities Broker Name Role Phone Nickie Negron MD Primary Care Provider +1- [phone] Encounter Details Date Type Department Care Team (Late st Contact Info) Description 01/14/2020 Documentation [facility] Vascular and Vein Surgery 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 We will reevaluate the virus in a couple of weeks an begin to call pt's back if given the ok todo so. If he has any question he can call the office back. documented in this encounter Plan of Treatment Not on file documented as of this encounter Visit Diagnoses Not on filedocumented in this encounter Care Teams Securities Broker Relationship Specialty Start Date End Date Nikcie Negron MD [address] [address] PCP - General 01/13/19 documented as of this encounter
--- OUTSIDE RECORDS SUMMARY | 2024-10-27 10:56 | XMS_ITS | Encounter Summary ---
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
--- OUTSIDE RECORDS SUMMARY | 2024-10-27 10:56 | XMS_ITS | Encounter Summary ---
Author Organization [facility] Address [address] [facility] [facility] [address] [place] [address] Care Team Providers Care Milk Powder Grinder Name Role Phone Nickie Negron MD Primary Care Provider +1- [phone] Reason for Visit * Reason Comments Follow-up 1yr Athrectomy LT po p 05/04/15 Encounter Details Date Type Department Care Team (Late st Contact Info) Description 05/12/2020 9:30 AM CDT Office Visit [facility] Vascular and Vein Surgery [address] [place] [address] Solomon Martinez MD [address] [place] [address] [address] [place] [address] 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 Dx); Mixed hyperlipidemia; Moderate essential hypertension Social History Tobacco Use [...] on file 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 Gender Identity Not on file Sexual Orientation Not on file documented as of this encounter Last Filed Vital Signs Vital Sign Reading Time Taken Comments Blood Pressure 120/81 05/12/2020 10:10 AM CDT Pulse 66 05/12/2020 10:10 AM CDT Temperature - - Respiratory Rate - - Oxygen Saturation - - Inhaled Oxygen Concentration - - Weight 59.4 kg (131 lb) 05/12/2020 10:10 AM CDT Height 162.6 cm (5' 4 ) 05/12/2020 10:10 AM CDT Body Mass Index 22.49 05/12/2020 10:10 AM CDT documented in this encounter Progress Notes * Solomon Martinez MD - 05/12/2020 9:30 AM CDT Images from the original note were not included. Patient ID: Julius Andrade is a 69 y.o. male Visit Date: 05/12/2020 Chief Complaint Chief Complaint Patient presents with ??? Follow-up 1yr Athrectomy LT pop 05/04/15 HPI 69-year-old male former smoker with hypertension hyperlipidemia and arterial occlusive disease heretoday for evaluation. Patient states overall he is doing quite well with no interim change since his last visit last year. He has not developed any significant recurrence lower extremity claudicationsymptoms. He is able to walk is normal distances without exertional pain. No pain or neurological changes at rest. States other medical problems are controlled he is compliant with his medications with no complaints today Past Medical History: Diagnosis Date ??? Celiac sprue ??? Chronic kidney disease, stage III (moderate) (CMS/HCC) ??? Crohn's colitis (CMS/HCC) ??? DJD (degenerative [...] education level: None Occupational History ??? None Social Needs ??? Financial resource strain: None ??? Food insecurity Worry: None Inability: None ??? Transportation needs Medical: None Non-medical: None Tobacco Use ??? Smoking status: Former Smoker Substance and Sexual Activity ??? Alcohol use: Never Frequency: Never ??? Drug use: None ??? Sexual activity: None Lifestyle ??? Physical activity Days per week: None Minutes per session: None ??? Stress: None Relationships ??? Social connections Talks on phone: None Gets together: None Attends hindu service: None Active member of club or organization: None Attends meetings of clubs or organizations: None Relationship status: None ??? Intimate partner violence Fear of current or ex partner: None Emotionally abused: None Physically abused: None Forced sexual activity: None Other Topics Concern ??? None Social History Narrative ??? None ROS Constitutional: No change in appetite. No [...] affect. Behavior normal. Judgment normal. IMAGING STUDIES Arterial Doppler studies show nfwi-yf-fkrixtiv small-vessel disease bilaterally. Wound healing potential is good ABIs falsely elevated likely Diagnoses and all orders for this visit: 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) Assessment & Plan: Patient continues to do well with no recurrence claudication symptoms left lower extremity. Continue exercise and ongoing risk factor modification follow-up 1 year with arterial Doppler study Mixed hyperlipidemia Assessment & Plan: Patient states cholesterol levels are controlled he is tolerating statin therapy continue per PCP Moderate essential hypertension Assessment & Plan: Per patient blood pressure remains controlled continue antihypertensive regimen per PCP Solomon Martinez MD documented in this encounter Miscellaneous Notes * Assessment & Plan Note - Solomon Martinez MD - 05/17/2020 5:40 PM CDT Associated Problem(s): Moderate essential hypertension Per patient blood pressure remains controlled continue antihypertensive regimen per PCP * Assessment & Plan Note - Solomon Martinez MD - 05/17/2020 5:40 PM CDT Associated Problem(s): Hyperlipidemia Patient states cholesterol levels are controlled he is tolerating statin therapy continue per PCP * Assessment & Plan Note - Solomon Martinez MD - 05/17/2020 5:39 PM CDT Associated Problem(s): Claudication of left lower extremity (HCC) Patient continues to do well with no recurrence claudication symptoms left lower extremity. Continue exercise and ongoing risk factor modification follow-up 1 year with arterial Doppler study documented in this encounter Plan of Treatment Not on file documented as of this encounter Visit Diagnoses Diagnosis Claudication of left lower extremity (HCC)- Primary Mixed hyperlipidemia Moderate essential hypertension documented in this encounter Historical Medications * This list may reflect changes made after this encounter. folic acid (FOLVITE) 1 mg tablet Take 1 tablet (1 mg total) by mouth daily 01/27/2020 sodium bicarbonate 650 mg tablet daily 0 influenza trivalent [id number] (Fluad 9720-6929, 65 yr up,,PF,) 45 mcg (15 mcg x 3)/0.5 mL syringe Fluad 65yr up(PF)45 mcg(15 mcgx3)/0.5 mL intramuscular syringe ADM 0.5ML IM UTD 2 triamcinolone (KENALOG) 0.1 % cream 1 application as needed 04/27/2020 2 denosumab (Prolia) 60 mg/mL syringe Inject 1 mL by subcutaneous route as directed for 180 days. 11/20/2016 2 aspirin 81 mg enteric coated tablet Take 81 mg by mouth daily 04/18/2020 2 allopurinoL (ZYLOPRIM) 100 mg tablet 04/18/2020 0 added in this encounter Care Teams Milk Powder Grinder Relationship Specialty Start Date End Date Nickie Negron MD [address] [facility] [address] [place] [address] PCP - General 01/13/19 documented as of this encounter
--- OUTSIDE RECORDS SUMMARY | 2024-10-27 10:56 | XMS_ITS | Encounter Summary ---
Author Organization [facility] Address [address] [place] [address] Care Team Providers Care District Court Justice Name Role Phone Nickie Negron MD Primary Care Provider +1- [phone] Encounter Details Date Type Department Care Team (Late st Contact Info) Description 07/20/2020 Telephone [facility] Nephrology [address] [facility] [address] [place] [address] Shree Gutiérrez MD [address] 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 Lab order faxed to PCP office, and script sent out to listed pharmacy. * Telephone Encounter - Shree Gutiérrez MD - 07/20/2020 1:15 PM CDT Ok please start him on sodium bicarb 1300mg po tid. Repeat a bmp tomorrow. If he is feeling worse would present to ER for IVF. thanks * Telephone Encounter - Analilia Christian MA - 07/20/2020 12:53 PM CDT Pt contacted and advised of lab results. Pt states that he's having more GI issues than usual. Advised to hold lisinopril, he states he don't believe he's been taking that ( couldn't find with his other medications). He's not taking sodium bicarb as well. * Telephone Encounter - Shree Gutiérrez MD - 07/20/2020 12:34 PM CDT Received patient's recent labs, in acute kidney failure with low serum bicarb. Please see if any acute GI issues or otherwise. Have him hold lisinopril. See if he is taking the sodium bicarbonate. thanks documented in this encounter Plan of Treatment Scheduled Orders Name Type Priority Associated Diagnoses Orde r Schedule Basic metabolic panel Lab Routine CRD (chronic renal disease), stage III (CMS/HCC) Metabolic acidosis Expected: 07/20/2020, Expires: 07/20/2021 documented as of this encounter Visit Diagnoses Diagnosis CRD (chronic renal disease), stage III (HCC)- Primary Chronic kidney disease, Stage III (moderate) Metabolic acidosis Acidosis documented in this encounter Discontinued Medications Medication Sig Discontinue Reason Start Date End Da te sodium bicarbonate 650 mg tablet daily 07/20/2020 documented as of this encounter Care Teams District Court Justice Relationship Specialty Start Date End Date Nickie Negron MD [address] [place] [address] PCP - General 01/13/19 documented as of this encounter
--- OUTSIDE RECORDS SUMMARY | 2024-10-27 10:56 | XMS_ITS | Encounter Summary ---
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 us Historical Provider Final Res ult documented in this encounter Visit Diagnoses Not on filedocumented in this encounter Care Teams Shift Supervisor Rn Relationship Specialty Start Date End Date Nickie Negron MD [address] [place] [address] PCP - General 01/13/19 documented as of this encounter
--- OUTSIDE RECORDS SUMMARY | 2024-10-27 10:56 | XMS_ITS | Encounter Summary ---
Author Organization [facility] Address [address] [place] [address] Care Team Providers Care Supplemental Nurse Name Role Phone Nickie Negron MD Primary Care Provider +1- [phone] Reason for Visit * Reason Comments Chronic Kidney Disease - Follow Up Visit Encounter Details Date Type Department Care Team (Late st Contact Info) Description 07/24/2019 10:45 AM CDT Office Visit [facility] Nephrology [address] [facility] [address] [facility] [address] [place] [address] Shree Gutiérrez MD [address] [address] CRD (chronic renal disease), stage III (CMS/HCC) (Primary Dx); Metabolic acidosis Social History Tobacco Use Types Packs/Day Years [...] on file 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 Gender Identity Not on file Sexual Orientation Not on file documented as of this encounter Last Filed Vital Signs Vital Sign Reading Time Taken Comments Blood Pressure 106/60 07/24/2019 10:30 AM CDT Pulse 72 07/24/2019 10:30 AM CDT Temperature 36.7 ??C (98.1 ??F) 07/24/2019 10:30 AM C DT Respiratory Rate - - Oxygen Saturation - - Inhaled Oxygen Concentration - - Weight 59.4 kg (131 lb) 07/24/2019 10:30 AM CDT Height 162.6 cm (5' 4 ) 07/24/2019 10:30 AM CDT Body Mass Index 22.49 07/24/2019 10:30 AM CDT documented in this encounter Progress Notes * Shree Gutiérrez MD - 07/24/2019 10:45 AM CDT Images from the original note were not included. Subjective/Objective Patient ID: Julius Andrade is a 68 y.o. male. Chief Complaint Chronic Kidney Disease [...] He responded again to IV fluid resuscitation. ?Creatinine has been relatively stable, he reports labs drawn 2-3 months ago and I have requested the results of these. Otherwise reports no acute GI issues Review of Systems Constitutional: Negative for appetite [...] mcg/actuation inhaler every 8 (eight) hours ??? buPROPion XL (WELLBUTRIN XL) 150 mg [...] mcg tablet, sublingual 5,000 mcg daily ??? febuxostat (ULORIC) 40 mg tablet Uloric 40 mg tablet TAKE 1 TABLET DAILY ??? fluticasone propion-salmeterol (ADVAIR DISKUS) 250-50 mcg/dose diskus inhaler Inhale 1 puff 2 (two) times a day ??? fluticasone propionate (FLONASE) 50 mcg/actuation nasal spray fluticasone propionate 50 mcg/actuation nasal spray,suspension daily ??? levothyroxine (SYNTHROID) 112 mcg tablet Take 112 mcg by mouth daily ??? lisinopril (PRINIVIL,ZESTRIL) 10 mg tablet Take 10 mg by mouth daily ??? mesalamine (ASACOL HD) 800 mg EC tablet mesalamine 800 mg tablet,delayed release TAKE 1 TABLET TWICE A DAY ??? pravastatin (PRAVACHOL) 10 mg tablet Take 10 mg by mouth daily ??? teriparatide (FORTEO) 20 mcg/dose - 600 mcg/2.4 mL injection Forteo 20 mcg/dose (600 mcg/2.4 mL) subcutaneous pen injector daily ??? VIAGRA 50 mg tablet Take 50 mg by mouth as needed ??? vitamins A,C,T-jwnx-kesmdx (PRESERVISION AREDS) 14,320-226-200 ivdh-in-gqoy capsule 2 (two) times a day No current facility-administered medications for this visit. Allergies Allergen Reactions ??? Gluten Vitals BP 106/60 (BP Location: Right arm, Patient Position: Sitting) Pulse 72 Temp 36.7 ??C (98.1 ??F) (Oral) Ht 162.6 cm (5' 4 ) Wt 59.4 kg (131 lb) BMI 22.49 kg/m?? 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 Requesting most recent lab results and I will orderrepeat labs with his next scheduled blood draw as well. Denies any orthostatic symptoms. If creatinine and would increase from prior baseline I would recommend discontinuing his lisinopril given his current BP. documented in this encounter Plan of Treatment Scheduled Orders Name Type Priority Associated Diagnoses Orde r Schedule Basic metabolic panel Lab Routine CRD (chronic renal disease), stage III (CMS/HCC) Expected: 07/24/2019, Expires: 07/24/2020 Magnesium Lab Routine CRD (chronic renal disease), stage III (CMS/HCC) Expected: 07/24/2019, Expires: 07/24/2020 Phosphorus Lab Routine CRD (chronic renal disease), stage III (CMS/HCC) Expected: 07/24/2019, Expires: 07/24/2020 CBC with auto differential Lab Routine CRD (chronic renal disease), stage III (CMS/HCC) 2 Occurrences starting 07/24/2019 until 07/24/2020 PTH Lab Routine CRD (chronic renal disease), stage III (CMS/HCC) Expected: 07/24/2019, Expires: 07/24/2020 documented as of this encounter Visit Diagnoses Diagnosis CRD (chronic renal disease), stage III (HCC)- Primary Chronic kidney disease, Stage III (moderate) Metabolic acidosis Acidosis documented in this encounter Historical Medications * This list may reflect changes made after this encounter. acetaminophen (TYLENOL) 500 mg tablet Take 1 tablet (500 mg total) by mouth every 8 (eight) hours as needed albuterol HFA (PROVENTIL HFA,VENTOLIN HFA,PROAIR HFA) 90 mcg/actuation inhaler Inhale 2 puffs every 8 (eight) hours as needed pravastatin (PRAVACHOL) 10 mg tablet Take 1 tablet (10 mg total) by mouth nightly 05/19/2019 fluticasone propionate (FLONASE) 50 mcg/actuation nasal spray Administer 1 spray into each nostril daily as needed cyanocobalamin, vitamin B-12, 5,000 mcg tablet, sublingual Place 5,000 mcg under the tongue daily cilostazol (PLETAL) 50 mg tablet Take 1 tablet (50 mg total) by mouth 2 (two) times a day cholestyramine (QUESTRAN) 4 gram powder Take 1 packet (4 g total) by mouth nightly as needed buPROPion XL (WELLBUTRIN XL) 150 mg 24 hr tablet Take 1 tablet (150 mg total) by mouth daily cholecalciferol (VITAMIN D-3) 25 mcg (1,000 unit) tablet Take 1 tablet (1,000 Units total) by mouth daily 4 VIAGRA 50 mg tablet Take 1 tablet (50 mg total) by mouth as needed 07/13/2019 4 febuxostat (ULORIC) 40 mg tablet Uloric 40 mg tablet TAKE 1 TABLET DAILY 0 levothyroxine (SYNTHROID) 125 mcg tablet Take 1 tablet (125 mcg total) by mouth eyewear consultant before breakfast 4 vitamins A,C,E-tqqe-jbjim r (PRESERVISION AREDS) 14,320-226-200 jtdl-rw-gqpy capsule 2 (two) times a day 1 mesalamine (ASACOL HD) 800 mg EC tablet mesalamine 800 mg tablet,delayed release TAKE 1 TABLET TWICE A DAY 1 lisinopril (PRINIVIL,ZESTRI L) 10 mg tablet Take 10 mg by mouth daily 05/19/2019 0 teriparatide (FORTEO) 20 mcg/dose - 600 mcg/2.4 mL injection Forteo 20 mcg/dose (600 mcg/2.4 mL) subcutaneous pen injector daily 0 clopidogrel (PLAVIX) 75 mg tablet Take 75 mg by mouth daily 2 fluticasone propion-salmeter ol (ADVAIR DISKUS) 250-50 mcg/dose diskus inhaler Inhale 1 puff 2 (two) times a day 1 added in this encounter Care Teams Supplemental Nurse Relationship Specialty Start Date End Date Nickie Negron MD [address] [facility] [address] [place] [address] PCP - General 01/13/19 documented as of this encounter
--- OUTSIDE RECORDS SUMMARY | 2024-10-27 10:56 | XMS_ITS | Encounter Summary ---
Author Organization 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 us Historical Provider Final Res ult documented in this encounter Visit Diagnoses Not on filedocumented in this encounter Care Teams Tag Stringer Relationship Specialty Start Date End Date Nickie Negron MD [address] [place] [address] PCP - General 01/13/19 documented as of this encounter
--- OUTSIDE RECORDS SUMMARY | 2024-10-27 10:56 | XMS_ITS | Encounter Summary ---
Author Organization [facility] Address [address] [facility] [address] [place] [address] Care Team Providers Care Telemetry Registered Nurse Name Role Phone Nickie Negron MD Primary Care Provider +1- [phone] Encounter Details Date Type Department Care Team (Late st Contact Info) Description 07/27/2020 Orders Only [facility] Nephrology [address] [facility] [address] [place] [address] Provider, MD Js [address] [place] [address] Social History Tobacco Use Types Packs/Day [...] on file 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 Gender Identity Not on file Sexual Orientation Not on file documented as of this encounter Plan of Treatment Not on file documented as of this encounter Procedures Procedure Name Priority Date/Time Associated Diagnosis Comments BASIC METABOLIC PANEL Routine 07/26/2020 documented in this encounter Results * Basic metabolic panel (07/26/2020) Blood specimen (specimen) Historical Provider LAB BLOOD ORDERABLES Shruthi l Result documented in this encounter Visit Diagnoses Not on filedocumented in this encounter Care Teams Telemetry Registered Nurse Relationship Specialty Start Date End Date Nickie Negron MD [address] [address] PCP - General 01/13/19 documented as of this encounter
--- OUTSIDE RECORDS SUMMARY | 2024-10-27 10:56 | XMS_ITS | Encounter Summary ---
Author Organization [facility] Address [address] [place] [address] Care Team Providers Care Preschool Assistant Teacher Name Role Phone Nickie Negron MD Primary Care Provider +1- [phone] Encounter Details Date Type Department Care Team (Latest Contact Info) Description 11/21/2020 11:30 AM ELECTRONIC SCALE TESTER - 11/21/2020 3:18 PM ELECTRONIC SCALE TESTER Hospital Encounter [facility] OP INTERIM Miguelangel Adamson MD [address] [place] [address] Discharge Disposition: Discharge to home or self [...] on file Legal Sex Male 5:49 AM ELECTRONIC SCALE TESTER Gender Identity Not on file Sexual Orientation Not on file documented as of this encounter Last Filed Vital Signs Vital Sign Reading Time Taken Comments Blood Pressure 120/61 11/21/2020 2:24 PM ELECTRONIC SCALE TESTER Pulse 60 11/21/2020 2:24 PM ELECTRONIC SCALE TESTER Temperature 37.2 ??C (99 ??F) 11/21/2020 2:24 PM ELECTRONIC SCALE TESTER Respiratory Rate - - Oxygen Saturation 99% 11/21/2020 2:24 PM ELECTRONIC SCALE TESTER Inhaled Oxygen Concentration - - Weight 59 kg (130 lb) 11/21/2020 2:24 PM ELECTRONIC SCALE TESTER Height 162.6 cm (5' 4 ) 11/21/2020 2:24 PM ELECTRONIC SCALE TESTER Body Mass Index 22.31 11/21/2020 2:24 PM ELECTRONIC SCALE TESTER documented in this encounter Medications at Time [...] (two) times a day 1 influenza trivalent 6215-9841 (Fluad 2712-7233, 65 yr up,,PF,) 45 mcg (15 mcg x 3)/0.5 mL syringe Fluad 65yr up(PF)45 mcg(15 mcgx3)/0.5 mL intramuscular syringe ADM 0.5ML IM UTD 2 levothyroxine (SYNTHROID) 125 mcg tablet Take 1 tablet (125 mcg total) by mouth fudger before breakfast 4 lisinopriL (PRINIVIL,ZESTRI L) 10 [...] by mouth as needed 07/13/2019 4 vitamins A,C,K-chpg-ozpza r (PRESERVISION AREDS) 14,320-226-200 uegy-pm-gkdh capsule 2 (two) times a day 1 documented as of this encounter Discharge Disposition Disposition Code Departure Means Destination Discharge to home or self care documented in this encounter Plan of Treatment Not on file documented as of this encounter Procedures Procedure Name Priority Date/Time Associated Diagnosis Comments ECG 12-LEAD 11/21/2020 12:02 PM ELECTRONIC SCALE TESTER documented in this encounter Results * ECG 12 lead (11/21/2020 12:02 PM ELECTRONIC SCALE TESTER) Ventricular Rate EKG/Min 87 BPM [facility] Atrial Rate 87 BPM [facility] AK-Interval (MSEC) 160 ms [facility] QRS-Interval (MSEC) 80 ms [facility] QT-Interval (MSEC) 360 ms [facility] QTc 433 ms [facility] P [place] 71 degrees [facility] R [place] 60 degrees [facility] T [place] 57 degrees [facility] Diagnosis Normal sinus rhythm Normal ECG When compared with ECG of 06-AUG-2017 10:00, Vent. rate has increased BY ??30 BPM [facility] 11/21/2020 12:0 2 PM ELECTRONIC SCALE TESTER 11/21/2020 4:48 PM ELECTRONIC SCALE TESTER Narrative Resulting Agency Comment OUTPAT us Mavis Frias MD ECG ORDERABLES Final Result Performing Organization Address City/State/[facility] Co de Phone Number [address] documented in this encounter Visit Diagnoses Not on filedocumented in this encounter Care Teams Preschool Assistant Teacher Relationship Specialty Start Date End Date Nickie Negron MD [address] [facility] [address] [place] [address] PCP - General 01/13/19 documented as of this encounter
--- OUTSIDE RECORDS SUMMARY | 2024-10-27 10:56 | XMS_ITS | Encounter Summary ---
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 us Historical Provider Final Res ult documented in this encounter Visit Diagnoses Not on filedocumented in this encounter Care Teams Reconcilement Clerk Relationship Specialty Start Date End Date Nickie Negron MD [address] [place] [address] PCP - General 01/13/19 documented as of this encounter
--- OUTSIDE RECORDS SUMMARY | 2024-10-27 10:56 | XMS_ITS | Encounter Summary ---
Author Organization [facility] Address [address] [facility] [facility] [address] [place] [address] Care Team Providers Care Bill Collector Name Role Phone Nickie Negron MD Primary Care Provider +1- [phone] Encounter Details Date Type Department Care Team (Late st Contact Info) Description 09/01/2020 Orders Only [facility] Nephrology [address] [facility] [address] [place] [address] Provider, MD Js [address] [place] [address] Social History Tobacco Use Types Packs/Day [...] on file 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 Gender Identity Not on file Sexual Orientation Not on file documented as of this encounter Plan of Treatment Not on file documented as of this encounter Procedures Procedure Name Priority Date/Time Associated Diagnosis Comments BASIC METABOLIC PANEL Routine 08/24/2020 documented in this encounter Results * Basic metabolic panel (08/24/2020) Blood specimen (specimen) Historical Provider LAB BLOOD ORDERABLES Shruthi l Result documented in this encounter Visit Diagnoses Not on filedocumented in this encounter Care Teams Bill Collector Relationship Specialty Start Date End Date Nickie Negron MD [address] [address] PCP - General 01/13/19 documented as of this encounter
--- OUTSIDE RECORDS SUMMARY | 2024-10-27 10:56 | XMS_ITS | Encounter Summary ---
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 Gender Identity Not on file Sexual Orientation Not on file documented as of this encounter Plan of Treatment Not on file documented as of this encounter Procedures Procedure Name Priority Date/Time Associated Diagnosis Comments COMPREHENSIVE METABOLIC PANEL Routine 10/30/2019 documented in this encounter Results * Comprehensive metabolic panel (10/30/2019) Blood specimen (specimen) Historical Provider LAB BLOOD ORDERABLES Shruthi l Result documented in this encounter Visit Diagnoses Not on filedocumented in this encounter Care Teams Mud Plant Operator Relationship Specialty Start Date End Date Nickie Negron MD [address] [address] PCP - General 01/13/19 documented as of this encounter
--- OUTSIDE RECORDS SUMMARY | 2024-10-27 10:56 | XMS_ITS | Encounter Summary ---
Author Organization [facility] Address [address] [facility] [address] [place] [address] Care Team Providers Care Nuclear Plant Instrument Technician Name Role Phone Nickie Negron MD Primary Care Provider +1- [phone] Encounter Details Date Type Department Care Team (Late st Contact Info) Description 11/02/2019 Telephone [facility] Nephrology [address] 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 Have him keep us in the loop on howhe is doing. thanks UNITY RELATIONS OFFICER * Telephone Encounter - Baylee Canales MA - 11/02/2019 3:16 PM COMMUNITY RELATIONS OFFICER Pt said he has been having diarrhea for the past week, where it has looked like almost water comingout instead of stool. His pcp Dr. Negron is running stool tests now. Do you still want repeat labs in a month? UNITY RELATIONS OFFICER * Telephone Encounter - Monica Christian MA - 11/02/2019 3:01 PM CST LMOM requesting CB. UNITY RELATIONS OFFICER * Telephone Encounter - Shree Gutiérrez MD - 11/02/2019 2:47 PM CST Serum creatinine slightly higher than previous and serum bicarbonate low. Please make sure no acuteGI issues and if not repeat a BMP in 1 month. Thank you UNITY RELATIONS OFFICER documented in this encounter Plan of Treatment Not on file documented as of this encounter Visit Diagnoses Not on filedocumented in this encounter Care Teams Nuclear Plant Instrument Technician Relationship Specialty Start Date End Date Nickie Negron MD [address] [address] PCP - General 01/13/19 documented as of this encounter
--- OUTSIDE RECORDS SUMMARY | 2024-10-27 10:56 | XMS_ITS | Encounter Summary ---
Author Organization [facility] Address [address] [facility] [address] [place] [address] Care Team Providers Care Dehydrogenation Operator Head Name Role Phone Nickie Negron MD Primary Care Provider +1- [phone] Encounter Details Date Type Department Care Team (Late st Contact Info) Description 08/19/2019 Orders Only [facility] Nephrology [address] [facility] [address] [place] [address] Provider, MD Js [address] [place] [address] Social History Tobacco Use Types Packs/Day [...] on file 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 Gender Identity Not on file Sexual Orientation Not on file documented as of this encounter Plan of Treatment Not on file documented as of this encounter Procedures Procedure Name Priority Date/Time Associated Diagnosis Comments COMPREHENSIVE METABOLIC PANEL Routine 08/18/2019 documented in this encounter Results * Comprehensive metabolic panel (08/18/2019) Blood specimen (specimen) Historical Provider LAB BLOOD ORDERABLES Shruthi l Result documented in this encounter Visit Diagnoses Not on filedocumented in this encounter Care Teams Dehydrogenation Operator Head Relationship Specialty Start Date End Date Nickie Negron MD [address] [address] PCP - General 01/13/19 documented as of this encounter
--- OUTSIDE RECORDS SUMMARY | 2024-10-27 10:56 | XMS_ITS | Encounter Summary ---
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 [address] [place] [address] Phone: tel: fax: Referral ID Status Reason Start Date Expiration Date Visits Re quested Visits Authorized [id number] Closed 12/30/2019 07/10/2021 1 1 SOFTWARE DEVELOPER Encounter Details Date Type Department Care Team (Late st Contact Info) Description 12/30/2019 Orders Only [facility] Medical [facility] Vascular and Vein Surgery [address] [facility] [address] [place] [address] Solomon Martinez MD [address] 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 [address] [place] [address] PCP - General 01/13/19 documented as of this encounter
--- OUTSIDE RECORDS SUMMARY | 2024-10-27 10:56 | XMS_ITS | Encounter Summary ---
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 Gender Identity Not on file Sexual Orientation Not on file documented as of this encounter Plan of Treatment Not on file documented as of this encounter Procedures Procedure Name Priority Date/Time Associated Diagnosis Comments CBC WITH AUTO DIFFERENTIAL Routine 07/18/2020 documented in this encounter Results * CBC with auto differential (07/18/2020) Blood specimen (specimen) Historical Provider LAB BLOOD ORDERABLES Shruthi l Result documented in this encounter Visit Diagnoses Not on filedocumented in this encounter Care Teams Junior Underwriter Relationship Specialty Start Date End Date Nickie Negron MD [address] [address] PCP - General 01/13/19 documented as of this encounter
--- OUTSIDE RECORDS SUMMARY | 2024-10-27 10:56 | XMS_ITS | Encounter Summary ---
Author Organization [facility] Address [address] [place] [address] Care Team Providers Care Classified Ad Taker Name Role Phone Nickie Negron MD Primary Care Provider +1- [phone] Encounter Details Date Type Department Care Team (Late st Contact Info) Description 11/03/2019 10:45 AM NUCLEAR SECURITY OFFICER - 11/03/2019 9:10 PM NUCLEAR SECURITY OFFICER Hospital Encounter [address] [address] Unknown, NotiSemaj Davidson Jr., [place] [address] [place] [address] Discharge Disposition: Discharge to home or self [...] on file Legal Sex Male 5:49 AM NUCLEAR SECURITY OFFICER Gender Identity Not on file Sexual Orientation Not on file documented as of this encounter Last Filed Vital Signs Vital Sign Reading Time Taken Comments Blood Pressure 116/74 11/03/2019 10:48 AM NUCLEAR SECURITY OFFICER Pulse 96 11/03/2019 10:48 AM NUCLEAR SECURITY OFFICER Temperature 36.7 ??C (98 ??F) 11/03/2019 10:48 AM NUCLEAR SECURITY OFFICER Respiratory Rate - - Oxygen Saturation 97% 11/03/2019 10:48 AM NUCLEAR SECURITY OFFICER Inhaled Oxygen Concentration - - Weight 56.5 kg (124 lb 9 oz) 11/03/2019 10:48 AM NUCLEAR SECURITY OFFICER Height 167.6 cm (5' 6 ) 11/03/2019 10:48 AM NUCLEAR SECURITY OFFICER Body Mass Index 20.1 11/03/2019 10:48 AM NUCLEAR SECURITY OFFICER documented in this encounter Medications at Time [...] 1 tablet (125 mcg total) by mouth cheese blender before breakfast 4 lisinopril (PRINIVIL,ZESTRI L) 10 [...] by mouth as needed 07/13/2019 4 vitamins A,C,R-kdho-snkvo r (PRESERVISION AREDS) 14,[id number] lrqe-mr-pifh capsule 2 (two) times a day 1 documented as of this encounter Discharge Disposition Disposition Code Departure Means Destination Discharge to home or self care documented in this encounter Plan of Treatment Not on file documented as of this encounter Procedures Procedure Name Priority Date/Time Associated Diagnosis Comments C.DIFFICILE TOXIN ASSAY Routine 11/03/2019 6:57 PM NUCLEAR SECURITY OFFICER URINALYSIS, COMPLETE W/REFLEX TO CULTURE Routine 11/03/2019 6:57 PM NUCLEAR SECURITY OFFICER INFLUENZA A/B PCR Routine 11/03/2019 6:1 5 PM NUCLEAR SECURITY OFFICER SEPSIS LACTATE Routine 11/03/2019 1:22 PM NUCLEAR SECURITY OFFICER CBC WITH AUTO DIFFERENTIAL Routine 11/03/2019 1:22 PM NUCLEAR SECURITY OFFICER LIPASE Routine 11/03/2019 1:22 PM NUCLEAR SECURITY OFFICER COMPREHENSIVE METABOLIC PANEL Routine 11/03/2019 1:[address] ABDOMEN PELVIS WO CONTRAST 11/03/2019 10:56 AM NUCLEAR SECURITY OFFICER XR CHEST PA LATERAL 2 VIEWS 11/03/2019 12:00 AM NUCLEAR SECURITY OFFICER documented in this encounter Results * C. difficile toxin assay (11/03/2019 6:57 PM NUCLEAR SECURITY OFFICER) Pathologist [facility] C.difficile Tox PCR NEGATIVE NEGATIVE [facility] Comment: Toxigenic C.Difficile DNA sequences are not detected. In patients do not require isolation. 11/03/2019 6:57 PM NUCLEAR SECURITY OFFICER 11/03/2019 7:12 PM NUCLEAR SECURITY OFFICER Narrative [facility] - 11/03/2019 7:58 PM NUCLEAR SECURITY OFFICER Pt had 3 or more type 6-7 stools in less than 24hrs Y Received antibiotics or antineoplastics in past 8 wks Y Received laxative,stool softener,enema or tube fdg past 48hr N Received pro-motility medication(s) (i.e. Reglan) N Received bowel prep/had GI procedure or surgery N Displaying signs/symptoms of inflammatory colitis Y Collected By CHIP Resulting Agency Comment ER Anupama THACKER LAB MICROBIOLOGY - GENERAL OR DERABLES Final Result [facility] [address] [place] [address], [facility] [phone] * (ABNORMAL) URINALYSIS, COMPLETE W/REFLEX TO CULTURE (11/03/2019 6:57 PM NUCLEAR SECURITY OFFICER) Pathologist [facility] Ur Collection Type CLEAN CATCH [facility] Ur Culture Indicated? C S NOT INDICATED [facility] Urine Color YELLOW YELLOW [facility] Urine Clarity Slightly-Patty udy CLEAR [facility] Urine Glucose (UA) NORMAL NORMAL mg/dL [facility] Urine Bilirubin NEGATIVE NEGATIVE mg/dl [facility] Urine Ketones 5(A) NEGATIVE mg/dL [facility] Ur Specific [place] 1.018 1.005 - 1.025 [facility] Urine Blood NEGATIVE NEGATIVE mg/dl [facility] Urine pH 5.0 5.0 - 8.0 [facility] Urine Protein 30(A) NEGATIVE mg/dL [facility] Urine Urobilinogen NORMAL NORMAL mg/dL [facility] Urine Nitrite NEGATIVE NEGATIVE [facility] Ur Leukocyte Esterase NEGATIVE NEGATIVE Al/ul [facility] Ur Microscopic Review Indicated or Ordered [facility] Urine RBC 1 0 - 2 /HPF [facility] Urine WBC 5 0 - 2 /HPF [facility] Urine Mucus Mod /LPF [facility] Hyaline Casts 15 0 - 2 /LPF [facility] 11/03/2019 6:57 PM NUCLEAR SECURITY OFFICER 11/03/2019 7:04 PM NUCLEAR SECURITY OFFICER Narrative [facility] - 11/03/2019 7:12 PM NUCLEAR SECURITY OFFICER Indication(s) for ordering ?? Pain-pelv/flank/suprapubc chip Clean catch Resulting Agency Comment ER Caro [facility] URINE ORDERABLES Fin al Result Performing Organization Address City/[facility]/ZIP Co de Phone Number [address] [phone] * Influenza A/B PCR (11/03/2019 6:15 PM NUCLEAR SECURITY OFFICER) Pathologist [facility] Influenza A RNA NEGATIVE NEGATIVE [facility] Influenza B RNA NEGATIVE NEGATIVE [facility] 11/03/2019 6:15 PM NUCLEAR SECURITY OFFICER 11/03/2019 6:22 PM NUCLEAR SECURITY OFFICER Narrative [facility] - 11/03/2019 6:56 PM NUCLEAR SECURITY OFFICER Collected By LMK Resulting Agency Comment ER Caro THACKER LAB MICROBIOLOGY - GENER AL ORDERABLES Final Result Performing Organization Address City/[facility]/ZIP Co de Phone Number [address] [phone] * Sepsis Lactate (11/03/2019 1:22 PM NUCLEAR SECURITY OFFICER) Sepsis lactate 1.9 mmol/L [facility] Comment: Lactate Reference Range: 0.5 - 2.2 mmol/L 11/03/2019 1:22 PM NUCLEAR SECURITY OFFICER 11/03/2019 1:27 PM NUCLEAR SECURITY OFFICER Narrative Resulting Agency Comment ER Anupama THACKER [facility] BLOOD ORDERABLES Final Re sult Performing Organization Address City/[facility]/ZIP Co de Phone Number [address] [phone] * Lipase (11/03/2019 1:22 PM NUCLEAR SECURITY OFFICER) Lipase 50 13 - 60 U/L [facility] 11/03/2019 1:22 PM NUCLEAR SECURITY OFFICER 11/03/2019 1:27 PM NUCLEAR SECURITY OFFICER Narrative Resulting Agency Comment ER Anupama THACKER LAB BLOOD ORDERABLES Final Re sult Performing Organization Address [facility] de Phone Number [address] [phone] * (ABNORMAL) Comprehensive metabolic panel (11/03/2019 1:22 PM NUCLEAR SECURITY OFFICER) Sodium 140 135 - 145 mmol/L [facility] Potassium 5.0 3.3 - 5.1 mmol/L [facility] Chloride 112(H) 96 - 108 mmol/L [facility] Carbon Dioxide 10(L) 22 - 32 mmol/L [facility] Anion Gap 18(H) 7 - 16 [facility] Glucose 117(H) 70 - 100 mg/dL [facility] BUN 54(H) 8 - 25 mg/dL [facility] Creatinine 3.7(H) 0.5 - 1.3 mg/dL [facility] Comment: NOTE: Estimated GFR (Cockroft-Gault) will NOT be calculated unless patient Height and Weight were entered. Also, Kidney Disease Stage (GFR) and Estimated GFR (Cockroft-Gault) will NOT be calculated if Creatinine result is <0.2. Kidney Disease Stage 17 mL/MIN [facility] Comment: NOTE; ??The GFR is an estimated value using the creatinine, sex, age, and race of the patient. THE Estimated Kidney Disease GFR is validated for AGES 18-70 YEARS STAGE ?mL/Min ?DESCRIPTION ??1 ?90 mL/min or more ?Normal or elevated GFR ??2 ? 60-89 mL/min ?Mildly decreased GFR ??3 ? 30-59 mL/min ?Moderately decreased GFR ??4 ? 15-29 mL/min ?Severely decreased GFR ??5 ? <15 mL/min ? Kidney failure or on dialysis Est GFR (Cockcroft-G) 15 ml/MIN [facility] Comment: Estimated GFR(Cockroft-Gault)is used to calculate patient medication dosage Calcium 10.5(H) 8.6 - 10.3 mg/dL [facility] Total Protein 7.8 6.4 - 8.3 g/dL [facility] Albumin 4.2 3.5 - 5.0 g/dL [facility] Globulin 3.6(H) 2.3 - 3.5 gm/dL [facility] Albumin/Globulin Ratio 1.2 1.1 - 1.8 [facility] Total Bilirubin 0.3 0.0 - 1.2 mg/dL [facility] AST 28 0 - 40 U/L [facility] ALT 15 0 - 41 U/L [facility] Alkaline Phosphatase 87 40 - 129 U/L [facility] 11/03/2019 1:22 PM NUCLEAR SECURITY OFFICER 11/03/2019 1:27 PM NUCLEAR SECURITY OFFICER Narrative Resulting Agency Comment ER us Anupama THACKER [facility] BLOOD ORDERABLES Final Re sult [facility] [address] [place] [address], [facility] [phone] * (ABNORMAL) CBC with auto differential (11/03/2019 1:22 PM NUCLEAR SECURITY OFFICER) WBC 19.8(H) 3.8 - 9.9 X10 3/ul [facility] RBC 4.15(L) 4.30 - 5.80 x10 6/ul [facility] Hemoglobin 12.6(L) 13.0 - 17.5 g/dL [facility] Hct 39.9 38.9 - 50.3 % [facility] MCV 96.1 81.3 - 96.4 fl [facility] MCH 30.4 27.1 - 33.3 pg [facility] MCHC 31.6(L) 32.3 - 35.7 g/dl [facility] RDW 12.8 11.1 - 14.9 % [facility] Plt Count 277 150 - 400 x10 3/ul [facility] MPV 11.0 9.1 - 12.3 fl [facility] Neut % 81.8 % [facility] Immature Gran % 1.6 % [facility] Lymph % 8.9 % [facility] Bleckley % 7.1 % [facility] Eos % 0.1 % [facility] AUTO BASO % 0.5 % [facility] NEUTROPHIL ABS # 16.2(H) 1.7 - 6.5 x10 3/ul [facility] Immature Gran # 0.3(H) 0.0 - 0.1 x10 3/ul [facility] Absolute Lymphs (auto) 1.8 0.8 - 3.3 x10 3/ul [facility] Absolute Monos (auto) 1.4(H) 0.2 - 0.8 x10 3/ul [facility] Absolute Eos (auto) 0.0 0.0 - 0.5 x10 3/ul [facility] BASOPHIL ABS # 0.1 0.0 - 0.1 x10 3/ul [facility] Nucleat RBC Rel Count 0.0 #/100WBC [facility] NRBC abs 0.00 0.00 - 0.01 x10 3/ul [facility] Absolute Neutrophils 16,200(H) 200 - 8,000 /ul [facility] 11/03/2019 1:22 PM NUCLEAR SECURITY OFFICER 11/03/2019 1:27 PM NUCLEAR SECURITY OFFICER Narrative Resulting Agency Comment ER us Anupama [facility] BLOOD ORDERABLES Final Re sult [facility] [address] [phone] * CT Abdomen Pelvis WO Contrast (11/03/2019 10:56 AM NUCLEAR SECURITY OFFICER) Anatomical Region Laterality Modality Body N/A Computed Tomogra phy 11/03/2019 3:02 PM NUCLEAR SECURITY OFFICER Narrative 11/03/2019 3:09 PM NUCLEAR SECURITY OFFICER Patient Name: JULIUS ANDRADE ?Ordering Dr: Anupaam Kaplan PA-C ?? D.O.B: 1950 ? Exam Date: 11/03/19 ?? 1056 ?? Age: 68 ?Sex: Male ? MR#: [id number] ?? Loc: ? RADIOLOGY REPORT ?? Order #[id number] ?? CT Scan ? CT Abd/Pelvis WO [...] D.O. ?? Miguelangel Valenzuela D.O. ? D: ??11/03/2019 3:09 PM ?? T: ? Report ID: [id number] ?? Reading Location: ??[id number] ? REPORT ELECTRONICALLY SIGNED IN OTHER VENDOR SYSTEM ?? Resulting Agency Comment E Procedure Note Miguelangel Valenzuela DO - 11/03/2019 Patient Name: JULIUS ANDRADE [address] Dr: Anupama Kaplan PA-C, D.O.B: 1950 Exam Date: 11/03/191055 Age: 68 Sex: Male MR#: [id number] Loc: RADIOLOGY REPORT Order #[id number] CT Scan CT Abd/Pelvis WO IV Contrast [...] by Miguelangel Valenzuela D.O. T: Report ID: [id number] Reading Location: [id number] REPORT ELECTRONICALLY SIGNED IN OTHER VENDOR SYSTEM us Anupama THACKER IMG CT PROCEDURES Final Resul t * XR Chest Pa Lateral 2 Views (11/03/2019 12:00 AM NUCLEAR SECURITY OFFICER) Anatomical Region Laterality Modality Body, Chest N/A Radiographic Leola ging 11/03/2019 6:57 PM NUCLEAR SECURITY OFFICER Narrative 11/03/2019 6:59 PM NUCLEAR SECURITY OFFICER Patient Name: JULIUS ANDRADE ?Ordering Dr: Caro Benavides PA-C ?? D.O.B: 1950 ? Exam Date: 11/03/19 ?? 0000 ?? Age: 68 ?Sex: Male ? MR#: [id number] ?? Loc: ? RADIOLOGY REPORT ?? Order #[id number] ?? Radiology ? Chest 2 Views ? Signed ?? EXAM DESCRIPTION: ??Chest 2 Views ? REASON FOR STUDY: ??cough for 2 days ? TECHNIQUE: ??Frontal and lateral radiographic views of the chest acquired. ? COMPARISON: ??11/20/2016 ? FINDINGS: ? LUNGS/PLEURA: Lungs are mildly hyperinflated. ??Asymmetric right upper lung ?? density, likely a confluence of normal structures and overlapping rib. ??No ?? focal consolidation, sizeable pleural effusion, or pneumothorax. ? HEART/MEDIASTINUM: Cardiomediastinal structures are unchanged. ? HARDWARE/LINES/TUBES: EKG leads overlap the chest. ? BONES: No acute findings. ? OTHER: No other significant finding. ? IMPRESSION: ??No acute cardiopulmonary abnormality. ? THIS IS AN ELECTRONICALLY VERIFIED FINAL REPORT ?? 11/03/2019 6:59 PM - Electronically signed by Joyce Dunn ?? Joyce Dunn ? BG ?? D: ??11/03/2019 6:59 PM ?? T: ? Report ID: [id number] ?? Reading Location: ??[id number] ? REPORT ELECTRONICALLY SIGNED IN OTHER VENDOR SYSTEM ?? Resulting Agency Comment E Procedure Note Joyce Dunn MD - 11/04/2019 Patient Name: JULIUS ANDRADE Dr: Caro Benavides PA-C, D.O.B: 1950 Exam Date: 11/03/19 0000 Age: 68 Sex: Male MR#: [id number] Loc: RADIOLOGY REPORT Order #[id number] Radiology Chest 2 Views Signed EXAM DESCRIPTION: Chest 2 Views REASON FOR STUDY: cough for 2 days TECHNIQUE: Frontal and lateral radiographic views of the chest acquired. COMPARISON: 11/20/2016 FINDINGS: LUNGS/PLEURA: Lungs are mildly hyperinflated. Asymmetric right upperlung density, likely a confluence of normal structures and overlapping rib.No focal consolidation, sizeable pleural effusion, or pneumothorax. HEART/MEDIASTINUM: Cardiomediastinal structures are unchanged. HARDWARE/LINES/TUBES: EKG leads overlap the chest. BONES: No acute findings. OTHER: No other significant finding. IMPRESSION: No acute cardiopulmonary abnormality. THIS IS AN ELECTRONICALLY VERIFIED FINAL REPORT 11/03/2019 6:59 PM - Electronically signed by Joyce PINO T: Report ID: [id number] Reading Location: [place] [address] REPORT ELECTRONICALLY SIGNED IN OTHER VENDOR SYSTEM Caro THACKER IMG XR PROCEDURES Final Result documented in this encounter Visit Diagnoses Not on filedocumented in this encounter Care Teams Classified Ad Taker Relationship Specialty Start Date End Date Nickie Negron MD [address] [facility] [address] [place] [address] PCP - General 01/13/19 documented as of this encounter
--- OUTSIDE RECORDS SUMMARY | 2024-10-27 10:57 | XMS_ITS | Encounter Summary ---
Author Organization [facility]/Health system Facility Care Team Providers Care Mechanical Apprentice Name Role Phone Nickie Negron MD Primary Care Provider +1- [phone] Encounter Details Date Type Department Care Team (Latest Contact Info) Description 10/04/2016 Orders Only [facility] CLINCONV Provider, MD Js [address] [place] [address] Social History Tobacco Use Types Packs/Day Years Used Date Smoking Tobacco: Former Sex and Gender Information Value Date Recorded Sex Assigned at Not on file Legal Sex Male 5:49 AM RECYCLING ATTENDANT Gender Identity Not on file Sexual Orientation Not on file documented as of this encounter Plan of Treatment Not on file documented as of this encounter Procedures Procedure Name Priority Date/Time Associated Diagnosis Comments SCAN - LABS 10/04/2016 12:00 AM RECYCLING ATTENDANT documented in this encounter Results * SCAN - LABS (10/04/2016 12:00 AM RECYCLING ATTENDANT) Narrative 10/04/2016 12:00 AM RECYCLING ATTENDANT Ordered by an unspecified provider. us Historical Provider Final Res ult documented in this encounter Visit Diagnoses Not on filedocumented in this encounter Care Teams Mechanical Apprentice Relationship Specialty Start Date End Date Nickie Negron MD [address] [place] [address] PCP - General 01/13/19 documented as of this encounter
--- OUTSIDE RECORDS SUMMARY | 2024-10-27 10:57 | XMS_ITS | Encounter Summary ---
Author Organization [facility] Facility Care Team Providers Care Golf Sales Manager Name Role Phone Nickie Negron MD Primary Care Provider +1- [phone] Encounter Details Date Type Department Care Team (Latest Contact Info) Description 10/26/2016 Orders Only [facility] CLINCONV Provider, MD Js [address] [place] [address] Social History Tobacco Use Types Packs/Day Years Used Date Smoking Tobacco: Former Sex and Gender Information Value Date Recorded Sex Assigned at Not on file Legal Sex Male 5:49 AM BUNCH TRIMMER MOLD Gender Identity Not on file Sexual Orientation Not on file documented as of this encounter Plan of Treatment Not on file documented as of this encounter Procedures Procedure Name Priority Date/Time Associated Diagnosis Comments SCAN - LABS 10/26/2016 12:00 AM BUNCH TRIMMER MOLD documented in this encounter Results * SCAN - LABS (10/26/2016 12:00 AM BUNCH TRIMMER MOLD) Narrative 10/26/2016 12:00 AM BUNCH TRIMMER MOLD Ordered by an unspecified provider. us Historical Provider Final Res ult documented in this encounter Visit Diagnoses Not on filedocumented in this encounter Care Teams Golf Sales Manager Relationship Specialty Start Date End Date Nickie Negron MD [address] [place] [address] PCP - General 01/13/19 documented as of this encounter
--- OUTSIDE RECORDS SUMMARY | 2024-10-27 10:57 | XMS_ITS | Encounter Summary ---
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 us Historical Provider Final Res ult documented in this encounter Visit Diagnoses Not on filedocumented in this encounter Care Teams Hazmat Technician Relationship Specialty Start Date End Date Nickie Negron MD [address] [place] [address] PCP - General 01/13/19 documented as of this encounter
--- OUTSIDE RECORDS SUMMARY | 2024-10-27 10:57 | XMS_ITS | Encounter Summary ---
Author Organization [facility] Healthcare Address [address] [place] [address] Care Team Providers Care Handle Attacher Name Role Phone Unavailable Primary Care Provider Unavailabl e Encounter Details Date Type Department Care Team (Latest Contact Info) Description 06/21/2016 10:10 AM CDT Hospital Encounter [facility] Solomon Robins MD [address] [facility] [address] [place] [address] Atherosclerosis of chitina artery of both lower extremities with intermittent claudication (CMS/HCC) Social History Tobacco Use Types Packs/Day Years Used Date Smoking Tobacco: Former Sex and Gender Information Value Date Recorded Sex Assigned at Not on file Legal Sex Male 5:49 AM WIRE DRAWER Gender Identity Not on file Sexual Orientation Not on file documented as of this encounter Plan of Treatment Not on file documented as of this encounter Procedures Procedure Name Priority Date/Time Associated Diagnosis Comments US ARTERIAL DOPPLER LOWER EXTREMITY BILATERAL Routine 06/21/2016 12:00 AM CDT documented in this encounter Results * US Arterial Doppler Lower Extremity Bilateral (06/21/2016 12:00 AM CDT) Anatomical Region Laterality Modality Vascular Bilateral Ultrasound 06/21/2016 Impressions 06/22/2016 11:30 AM CDT ??NAS 0.92 on the right and 1 on the left, although possibly falsely elevated, is normal. ??Waveform analysis suggests mild popliteal and tibial level disease, likely bilaterally. ??Healing potential is good. NTS Job: [id number] Dictated By: Solomon Martinez MD Dictated For: Solomon ??MD Juan [EOD] Narrative 06/22/2016 11:30 AM CDT DATE OF SERVICE: 06/22/2016 LOWER EXTREMITY ARTERIAL DOPPLER STUDY REASON FOR EXAM: ??I70.213. COMMENTS ON THE RIGHT: ??Brachial pressure is 130. ??PT and DP digital pressure were greater than 220, 120 and 80 for an NAS of 0.92, DBI of 0.62. ??Waveforms are triphasic at the common femoral, popliteal level. ??Biphasic at the tibial level. ??Pulsatile waveform noted in the first digit. COMMENTS ON THE LEFT: ??PT and DP pressure of greater than 220. ??Digital pressure of 70. ??NAS likely falsely elevated to some degree and greater than 1. ??DBI of 0.57. ??Waveforms are triphasic at the common femoral, popliteal. ??Biphasic at the tibial level. ??Pulsatile waveform noted in the first digit. OVERALL Procedure Note Provider, MD Js - 03/14/2021 DATE OF SERVICE: 06/22/2016 LOWER EXTREMITY ARTERIAL DOPPLER STUDY REASON FOR EXAM: I70.213. COMMENTS ON THE RIGHT: Brachial pressure is 130. PT and DP digitalpressure were greater than 220, 120 and 80 for an NAS of 0.92, DBI of0.62. Waveforms are triphasic at the common femoral, popliteal level.Biphasic at the tibial level. Pulsatile waveform noted in the firstdigit. COMMENTS ON THE LEFT: PT and DP pressure of greater than 220. Digitalpressure of 70. NAS likely falsely elevated to some degree and greaterthan 1. DBI of 0.57. Waveforms are triphasic at the common femoral,popliteal. Biphasic at the tibial level. Pulsatile waveform noted in thefirst digit. OVERALL IMPRESSION: NAS 0.92 on the right and 1 on the left, althoughpossibly falsely elevated, is normal. Waveform analysis suggests mildpopliteal and tibial level disease, likely bilaterally. Healing potentialis good. NTS Job: [id number] Dictated By: Solomon Martinez MD Dictated For: Solomon Martinez MD [EOD] us Solomon Martinez MD IMG US PROCEDURES Final Re sult documented in this encounter Visit Diagnoses Diagnosis Atherosclerosis of chitina artery of both lower extremities with intermittent claudication (HCC) documented in this encounter
--- OUTSIDE RECORDS SUMMARY | 2024-10-27 10:57 | XMS_ITS | Encounter Summary ---
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 us Historical Provider Final Res ult documented in this encounter Visit Diagnoses Not on filedocumented in this encounter Care Teams Photonics Technician Relationship Specialty Start Date End Date Nickie Negron MD [address] [place] [address] PCP - General 01/13/19 documented as of this encounter
--- OUTSIDE RECORDS SUMMARY | 2024-10-27 10:57 | XMS_ITS | Encounter Summary ---
Author Organization [facility] Facility Care Team Providers Care Refractory Worker Name Role Phone Nickie Negron MD Primary Care Provider +1- [phone] Encounter Details Date Type Department Care Team (Latest Contact Info) Description 05/24/2016 Orders Only [facility]INCON[facility] ProviderJs MD [address] [place] [id number] Social History Tobacco Use Types Packs/Day Years Used Date Smoking Tobacco: Former Sex and Gender Information Value Date Recorded Sex Assigned at Not on file Legal Sex Male 5:49 AM CRISIS THERAPIST Gender Identity Not on file Sexual Orientation Not on file documented as of this encounter Plan of Treatment Not on file documented as of this encounter Procedures Procedure Name Priority Date/Time Associated Diagnosis Comments SCAN - LABS 05/24/2016 12:00 AM CDT documented in this encounter Results * SCAN - LABS (05/24/2016 12:00 AM CDT) Narrative 05/24/2016 12:00 AM CDT Ordered by an unspecified provider. us Historical Provider Final Res ult documented in this encounter Visit Diagnoses Not on filedocumented in this encounter Care Teams Refractory Worker Relationship Specialty Start Date End Date Nickie Negron MD [address] [place] [address] PCP - General 01/13/19 documented as of this encounter
--- OUTSIDE RECORDS SUMMARY | 2024-10-27 10:57 | XMS_ITS | Encounter Summary ---
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 us Historical Provider Final Res ult documented in this encounter Visit Diagnoses Not on filedocumented in this encounter Care Teams Clinical Documentation Nurse Relationship Specialty Start Date End Date Nickie Negron MD [address] [place] [address] PCP - General 01/13/19 documented as of this encounter
--- OUTSIDE RECORDS SUMMARY | 2024-10-27 10:57 | XMS_ITS | Encounter Summary ---
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 11/20/2016 2 documented as of this encounter Plan of Treatment Not on file documented as of this encounter Procedures Procedure Name Priority Date/Time Associated Diagnosis Comments US ARTERIAL DUPLEX LOWER EXTREMITY LEFT LIMITED Routine 07/03/2017 12:00 AM CDT documented in this encounter Results * US Arterial Duplex Lower Extremity Left Limited (07/03/2017 12:00 AM CDT) Anatomical Region Laterality Modality Vascular Left Ultrasound 07/03/2017 Impressions 07/10/2017 5:09 PM CDT ??Patent arterial tree throughout the left lower extremity with residual atherosclerotic disease noted throughout the left superficial femoral artery and popliteal arteries. ??However, waveforms and ankle brachial indexes are normal bilaterally. NTS Job: [id number] Dictated By: Solomon Martinez MD Dictated For: Solomon ??MD Juan [EOD] Narrative 07/10/2017 5:09 PM CDT DATE OF SERVICE: 07/10/2017 STUDY: ??Left lower extremity arterial duplex. REASON FOR EXAM: ??[id number]. FINDINGS: ??The left common profunda femoral, and superficial femoral arteries are patent throughout with velocities 105, 90, 101, 86, and 79 cm/sec respectively. ??Popliteal artery is patent with velocities of 68 and 67 cm/sec. ??The anterior tibial, posterior tibial, and peroneal arteries are patent with velocities of 38, 68, and 65 cm/sec. ??Waveforms triphasic at the PT, monophasic at the DP. ??NAS 0.96. ??On the right, biphasic waveforms noted with ABIs greater than 1. Procedure Note Provider, MD Js - 03/14/2021 DATE OF SERVICE: 07/10/2017 STUDY: Left lower extremity arterial duplex. REASON FOR EXAM: [id number]. FINDINGS: The left common profunda femoral, and superficial femoralarteries are patent throughout with velocities 105, 90, 101, 86, and 79cm/sec respectively. Popliteal artery is patent with velocities of 68 and67 cm/sec. The anterior tibial, posterior tibial, and peroneal arteriesare patent with velocities of 38, 68, and 65 cm/sec. Waveforms triphasicat the PT, monophasic at the DP. NAS 0.96. On the right, biphasicwaveforms noted with ABIs greater than 1. IMPRESSION: Patent arterial tree throughout the left lower extremity withresidual atherosclerotic disease noted throughout the left superficialfemoral artery and popliteal arteries. However, waveforms and anklebrachial indexes are normal bilaterally. 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
--- OUTSIDE RECORDS SUMMARY | 2024-10-27 10:57 | XMS_ITS | Encounter Summary ---
Author Organization [facility] Healthcare Address [address] [place] [address] Care Team Providers Care Seaman Name Role Phone Unavailable Primary Care Provider Unavailabl e Encounter Details Date Type Department Care Team (Latest Contact Info) Description 04/09/2016 12:33 PM CDT - 04/15/2016 7:15 PM CDT Hospital Encounter [facility] Singh Jean MD [address] [place] [address] Acute kidney failure with tubular necrosis (CMS/HCC); Crohn's disease without complication (CMS/HCC); Ulcer of esophagus with bleeding; Gastrointestinal hemorrhage; Acidosis; Ulcer of anus and rectum; Subluxation of right middle finger; Hypotension; Hearing loss; Atherosclerotic heart disease of [place] coronary artery without angina pectoris; Hyperlipidemia; Hypertensive chronic kidney disease with stage 1 through stage 4 chronic kidney disease, or unspecified chronic kidney disease; Chronic kidney disease, stage III (moderate); Chronic obstructive pulmonary disease (CMS/HCC); Peripheral vascular disease (CMS/HCC); Gastro-esophageal reflux disease without esophagitis; Primary osteoarthritis of right hand; Primary osteoarthritis of left hand; Hypothyroidism; Partial loss of tooth; Diaphragmatic hernia without obstruction or gangrene; Diverticulosis of large intestine without perforation or abscess without bleeding; Dysphagia; Hypokalemia; Fall; Unspecified place or not applicable; Allergy to milk products; Allergy to other foods; intermediate card tender current use of antithrombotics/antipl atelets; intermediate card tender current use of aspirin; FDC current use of inhaled steroid; Other snf (current) drug therapy; Acquired absence of other specified parts of digestive tract; Presence of coronary angioplasty implant and graft; Body mass index (BMI) of 21.0-21.9 in adult Social History Tobacco Use Types Packs/Day Years Used Date Smoking Tobacco: Former Sex and Gender Information Value Date Recorded Sex Assigned at Not on file Legal Sex Male 5:49 AM 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[employer] Gender Identity Not on file Sexual Orientation Not on file documented as of this encounter Last Filed Vital Signs Vital Sign Reading Time Taken Comments Blood Pressure 140/64 04/12/2016 5:37 PM CDT Pulse 56 04/12/2016 5:37 PM CDT Temperature 36.6 ??C (97.9 ??F) 04/12/2016 5:37 PM CD T Respiratory Rate - - Oxygen Saturation 100% 04/12/2016 5:37 PM CDT Inhaled Oxygen Concentration - - Weight 59.7 kg (131 lb 9.6 oz) 04/12/2016 5:37 P M CDT Height 162.6 cm (5' 4 ) 04/12/2016 5:37 PM CDT Body Mass Index 22.59 04/12/2016 5:37 PM CDT documented in this encounter Plan of Treatment Not on file documented as of this encounter Procedures Procedure Name Priority Date/Time Associated Diagnosis Comments SCAN - PATHOLOGY 04/17/2016 12:0 0 AM CDT CLOSTRIDIUM DIFFICILE ASSAY Routine 04/15/2016 11:04 AM CDT BASIC METABOLIC PANEL Routine 04/15/2016 5:49 AM CDT CBC WITH AUTO DIFFERENTIAL Routine 04/14/2016 7:03 AM CDT BASIC METABOLIC PANEL Routine 04/14/2016 7:03 AM CDT BASIC METABOLIC PANEL Routine 04/13/2016 5:23 AM CDT CBC WITH AUTO DIFFERENTIAL Routine 04/12/2016 5:14 AM CDT BASIC METABOLIC PANEL Routine 04/12/2016 5:14 AM CDT CBC WITH AUTO DIFFERENTIAL Routine 04/11/2016 5:26 AM CDT COMPREHENSIVE METABOLIC PANEL Routine 04/11/2016 5:26 AM CDT URINE ELECTROLYTE PANEL Routine 04/10/2016 12:12 PM CDT DRUGS OF ABUSE SCREEN, URINE WITHOUT CONFIRMATION Routine 04/10/2016 12:12 PM CDT IRON Routine 04/10/2016 11:16 AM CDT FERRITIN Routine 04/10/2016 11:16 AM CDT CBC WITH AUTO DIFFERENTIAL Routine 04/10/2016 7:46 AM CDT BASIC METABOLIC PANEL Routine 04/10/2016 7:46 AM CDT CBC WITH AUTO DIFFERENTIAL Routine 04/10/2016 4:33 AM CDT TSH Routine 04/10/2016 4:33 AM CDT T4, FREE Routine 04/10/2016 4:33 AM CDT PHOSPHORUS Routine 04/10/2016 4:33 AM CDT MAGNESIUM Routine 04/10/2016 4:33 AM CDT BASIC METABOLIC PANEL Routine 04/10/2016 4:[address] ABDOMEN PELVIS WO CONTRAST Routine 04/10/2016 12:00 AM CDT LACTATE Routine 04/09/2016 2:10 PM CDT SALICYLATE LEVEL Routine 04/09/2016 2:10 PM CDT URINALYSIS AND REFLEX TO MICROSCOPIC AND CULTURE Routine 04/09/2016 12:45 PM CDT CBC WITH AUTO DIFFERENTIAL Routine 04/09/2016 11:10 AM CDT APTT Routine 04/09/2016 11:10 AM CDT PROTIME-INR Routine 04/09/2016 11:10 AM CDT PHOSPHORUS Routine 04/09/2016 11:10 AM CDT MAGNESIUM Routine 04/09/2016 11:10 AM CDT CREATINE KINASE (CK), TOTAL Routine 04/09/2016 11:10 AM CDT COMPREHENSIVE METABOLIC PANEL Routine 04/09/2016 11:10 AM CDT US KIDNEY COMPLETE Routine 04/09/2016 12 :00 AM CDT XR CHEST 1 VIEW Routine 04/09/2016 12:00 AM CDT XR CHEST 1 VIEW Routine 04/09/2016 12:[address] CERVICAL SPINE WO CONTRAST Routine 04/09/2016 12:[address] HEAD WO CONTRAST Routine 04/09/2016 1 2:00 AM CDT XR HAND RIGHT 3 OR MORE VIEWS Routine 04/09/2016 12:00 AM CDT XR SHOULDER RIGHT 2 OR MORE VIEWS Routine 04/09/2016 12:00 AM CDT XR SHOULDER LEFT 2 OR MORE VIEWS Routine 04/09/2016 12:00 AM CDT documented in this encounter Results * SCAN - PATHOLOGY (04/17/2016 12:00 AM CDT) Narrative 04/17/2016 12:00 AM CDT Ordered by an unspecified provider. us Historical Provider MD Final Res ult * Clostridium difficile assay (04/15/2016 11:04 AM CDT) C, difficile (LAMP) POSITIVE NEGATIVE Comment: Positive test: In adults, metronidazole is the treatment of choice except in cases of severe infection or therapeutic failure. If a patient is positive for C. difficile, no additional specimens will be accepted. The assay is not approved to test for cure, since nucleic acids may persist after effective treatment and may prompt false positive results. 04/15/2016 11:0 4 AM CDT 04/15/2016 11:19 AM CDT us Topher Smith MD LAB MICROBIOLOGY - GENERAL ORD ERABLES Final Result [facility] HISTORICAL RESULTS * (ABNORMAL) Basic metabolic panel (04/15/2016 5:49 AM CDT) Sodium 137 135 - 145 mmol/L Potassium 4.2 3.3 - 5.1 mmol/L Chloride 106 96 - 108 mmol/L Carbon Dioxide 24 22 - 32 mmol/L Anion Gap 7 7 - 16 Glucose 96 70 - 100 mg/dL BUN 30(H) 8 - 23 mg/dL Creatinine 2.2(H) 0.5 - 1.3 mg/dL Comment: NOTE: Estimated GFR (Cockroft-Gault) will NOT be calculated unless patient Height and Weight were entered. Also, Kidney Disease Stage (GFR) and Estimated GFR (Cockroft-Gault) will NOT be calculated if Creatinine result is <0.2. Kidney Disease Stage 32 mL/MIN Comment: NOTE; ??The GFR is an estimated value using the creatinine, sex, age, and race of the patient. THE ESTIMATED GFR IS VALIDATED FOR AGES 18-70 YEARS STAGE ?mL/Min ?DESCRIPTION ??1 ?90 mL/min or more ?Normal or elevated GFR ??2 ? 60-89 mL/min ?Mildly decreased GFR ??3 ? 30-59 mL/min ?Moderately decreased GFR ??4 ? 15-29 mL/min ?Severely decreased GFR ??5 ? <15 mL/min ? Kidney failure or on dialysis @ Est GFR (Cockcroft-G) 27 ml/MIN 04/15/2016 6:41 AM CDT [facility] [employer] HISTORICAL RESULTS Calcium 8.2(L) 8.8 - 10.2 mg/dL 04/15/2016 6:41 AM T [facility] [employer] HISTORICAL RESULTS 04/15/2016 5:49 AM CDT 04/15/2016 6:20 AM CDT Shayna Landry MD LAB BLOOD ORDERABLES Final Result [facility] HISTORICAL RESULTS * (ABNORMAL) CBC with auto differential (04/14/2016 7:03 AM CDT) WBC 6.3 4.6 - 10.2 x10 3/ul 04/14/2016 7:40 AM CDT [facility] [employer] HISTORICAL RESULTS RBC 2.73(L) 4.11 - 5.71 x10 6/ul 04/14/2016 7:40 AM T [facility] [employer] HISTORICAL RESULTS Hemoglobin 8.5(L) 13.0 - 17.0 g/dl Hct 27.1(L) 38.2 - 48.5 % MCV 99.3(H) 80.0 - 97.0 fl MCH 31.1 27.0 - 31.2 pg MCHC 31.4(L) 31.8 - 35.4 g/dl 04/14/2016 7:40 AM CDT [facility] HISTORICAL RESULTS RDW 12.1 11.6 - 14.8 % 04/14/2016 7:40 AM CDT [facility] HISTORICAL RESULTS Plt Count 149 124 - 400 x10 3/ul 04/14/2016 7:40 AM CDT [facility] HISTORICAL RESULTS MPV 12.3(H) 7.4 - 10.4 fl 04/14/2016 7:40 AM [facility] Neut % 58.8 37.0 - 85.0 % 04/14/2016 7:40 AM T [facility] HISTORICAL RESULTS Immature Gran % 0.5 0.0 - 3.0 % 04/14/2016 7:40 AM [facility] Lymph % 26.3 5.0 - 45.0 % 04/14/2016 7:40 AM CDT [facility] HISTOR[facility] RESULTS Trinity % 7.9 3.0 - 15.0 % 04/14/2016 7:40 AM CDT [facility] HISTORICAL RESULTS Eos % 5.7 0.0 - 7.0 % 04/14/2016 7:40 AM CDT [facility] HISTORICAL RESULTS Baso % 0.8 0.0 - 2.0 % 04/14/2016 7:40 AM CDT [facility] HISTORICAL RESULTS Absolute Neuts (auto) 3.7 1.7 - 8.7 x10 3/ul Immature Gran # 0.0 0.0 - 0.3 x10 3/ul 04/14/2016 7:40 AM CDT [facility] H[facility]OR[facility] RESULTS Absolute Lymphs (auto) 1.7 0.2 - 4.6 x10 3/ul Absolute Monos (auto) 0.5 0.1 - 1.5 x10 3/ul Absolute Eos (auto) 0.4 0.0 - 0.7 x10 3/ul Absolute Basos (auto) 0.1 0.0 - 0.2 x10 3/ul 04/14/2016 7:03 AM CDT 04/14/2016 7:34 AM CDT Shayna Landry MD LAB BLOOD ORDERABLES Final Result [facility] HISTORICAL RESULTS * (ABNORMAL) Basic metabolic panel (04/14/2016 7:03 AM CDT) Sodium 143 135 - 145 mmol/L Potassium 4.5 3.3 - 5.1 mmol/L Chloride 108 96 - 108 mmol/L Carbon Dioxide 24 22 - 32 mmol/L Anion Gap 11 7 - 16 Glucose 101(H) 70 - 100 mg/dL BUN 45(H) 8 - 23 mg/dL Creatinine 2.6(H) 0.5 - 1.3 mg/dL Comment: NOTE: Estimated GFR (Cockroft-Gault) will NOT be calculated unless patient Height and Weight were entered. Also, Kidney Disease Stage (GFR) and Estimated GFR (Cockroft-Gault) will NOT be calculated if Creatinine result is <0.2. Kidney Disease Stage 26 mL/MIN Comment: NOTE; ??The GFR is an estimated value using the creatinine, sex, age, and race of the patient. THE ESTIMATED GFR IS VALIDATED FOR AGES 18-70 YEARS STAGE ?mL/Min ?DESCRIPTION ??1 ?90 mL/min or more ?Normal or elevated GFR ??2 ? 60-89 mL/min ?Mildly decreased GFR ??3 ? 30-59 mL/min ?Moderately decreased GFR ??4 ? 15-29 mL/min ?Severely decreased GFR ??5 ? <15 mL/min ? Kidney failure or on dialysis @ Est GFR (Cockcroft-G) 23 ml/MIN Calcium 8.8 8.8 - 10.2 mg/dL 04/14/2016 7:03 AM CDT 04/14/2016 7:34 AM CDT Shayna Landry MD LAB BLOOD ORDERABLES Final Result [facility] HISTORICAL RESULTS * (ABNORMAL) Basic metabolic panel (04/13/2016 5:23 AM CDT) Sodium 146(H) 135 - 145 mmol/L Potassium 4.1 3.3 - 5.1 mmol/L Chloride 108 96 - 108 mmol/L Carbon Dioxide 24 22 - 32 mmol/L Anion Gap 14 7 - 16 Glucose 99 70 - 100 mg/dL BUN 60(H) 8 - 23 mg/dL Creatinine 3.2(H) 0.5 - 1.3 mg/dL Comment: NOTE: Estimated GFR (Cockroft-Gault) will NOT be calculated unless patient Height and Weight were entered. Also, Kidney Disease Stage (GFR) and Estimated GFR (Cockroft-Gault) will NOT be calculated if Creatinine result is <0.2. Kidney Disease Stage 21 mL/MIN Comment: NOTE; ??The GFR is an estimated value using the creatinine, sex, age, and race of the patient. THE ESTIMATED GFR IS VALIDATED FOR AGES 18-70 YEARS STAGE ?mL/Min ?DESCRIPTION ??1 ?90 mL/min or more ?Normal or elevated GFR ??2 ? 60-89 mL/min ?Mildly decreased GFR ??3 ? 30-59 mL/min ?Moderately decreased GFR ??4 ? 15-29 mL/min ?Severely decreased GFR ??5 ? <15 mL/min ? Kidney failure or on dialysis @ Est GFR (Cockcroft-G) 18 ml/MIN 04/13/2016 6:12 AM CDT [facility] [employer] HISTORICAL RESULTS Calcium 8.5(L) 8.8 - 10.2 mg/dL 04/13/2016 6:12 AM CDT [facility] [employer] HISTORICAL RESULTS 04/13/2016 5:23 AM CDT 04/13/2016 5:48 AM CDT Singh Melendrez MD LAB BLOOD ORDERABLES Final Resul t [facility] HISTORICAL RESULTS * (ABNORMAL) CBC with auto differential (04/12/2016 5:14 AM CDT) WBC 5.8 4.6 - 10.2 x10 3/ul 04/12/2016 6:24 AM CDT [facility] [employer] HISTORICAL RESULTS RBC 2.55(L) 4.11 - 5.71 x10 6/ul 04/12/2016 6:25 AM CDT [facility] [employer] HISTORICAL RESULTS Hemoglobin 8.2(L) 13.0 - 17.0 g/dl 04/12/2016 6:25 AM CDT [facility] [employer] HISTORICAL RESULTS Hct 23.6(L) 38.2 - 48.5 % 04/12/2016 6:25 AM CDT [facility] [employer] HISTORICAL RESULTS MCV 92.5 80.0 - 97.0 fl 04/12/2016 6:25 AM CDT [facility] [employer] HISTORICAL RESULTS MCH 32.2(H) 27.0 - 31.2 pg 04/12/2016 6:25 AM CDT [facility] [employer] HISTORICAL RESULTS MCHC 34.7 31.8 - 35.4 g/dl 04/12/2016 6:25 AM CDT [facility] [employer] HISTORICAL RESULTS RDW 12.2 11.6 - 14.8 % 04/12/2016 6:25 AM CDT [facility] [employer] HISTORICAL RESULTS Plt Count 133 124 - 400 x10 3/ul 04/12/2016 6:25 AM CDT [facility] [employer] HISTORICAL RESULTS MPV 12.7(H) 7.4 - 10.4 fl 04/12/2016 6:25 AM CDT [facility] [employer] HISTORICAL RESULTS Neut % 60.3 37.0 - 85.0 % Immature Gran % 0.3 0.0 - 3.0 % Lymph % 24.4 5.0 - 45.0 % Trinity % 10.7 3.0 - 15.0 % Eos % 4.0 0.0 - 7.0 % Baso % 0.3 0.0 - 2.0 % Absolute Neuts (auto) 3.5 1.7 - 8.7 x10 3/ul Immature Gran # 0.0 0.0 - 0.3 x10 3/ul Absolute Lymphs (auto) 1.4 0.2 - 4.6 x10 3/ul Absolute Monos (auto) 0.6 0.1 - 1.5 x10 3/ul Absolute Eos (auto) 0.2 0.0 - 0.7 x10 3/ul Absolute Basos (auto) 0.0 0.0 - 0.2 x10 3/ul 04/12/2016 5:14 AM CDT 04/12/2016 5:56 AM CDT us Singh Melendrez MD LAB BLOOD ORDERABLES Final Resul t [facility] HISTORICAL RESULTS * (ABNORMAL) Basic metabolic panel (04/12/2016 5:14 AM CDT) Sodium 139 135 - 145 mmol/L Potassium 3.6 3.3 - 5.1 mmol/L Chloride 99 96 - 108 mmol/L Carbon Dioxide 28 22 - 32 mmol/L Anion Gap 12 7 - 16 Glucose 101(H) 70 - 100 mg/dL BUN 71(H) 8 - 23 mg/dL Creatinine 4.3(H) 0.5 - 1.3 mg/dL Comment: NOTE: Estimated GFR (Cockroft-Gault) will NOT be calculated unless patient Height and Weight were entered. Also, Kidney Disease Stage (GFR) and Estimated GFR (Cockroft-Gault) will NOT be calculated if Creatinine result is <0.2. Kidney Disease Stage 15 mL/MIN Comment: NOTE; ??The GFR is an estimated value using the creatinine, sex, age, and race of the patient. THE ESTIMATED GFR IS VALIDATED FOR AGES 18-70 YEARS STAGE ?mL/Min ?DESCRIPTION ??1 ?90 mL/min or more ?Normal or elevated GFR ??2 ? 60-89 mL/min ?Mildly decreased GFR ??3 ? 30-59 mL/min ?Moderately decreased GFR ??4 ? 15-29 mL/min ?Severely decreased GFR ??5 ? <15 mL/min ? Kidney failure or on dialysis @ Est GFR (Cockcroft-G) 13 ml/MIN 04/12/2016 6:18 AM T [facility] [employer] HISTORICAL RESULTS Calcium 7.8(L) 8.8 - 10.2 mg/dL 04/12/2016 6:18 AM T [facility] HISTORICAL RESULTS 04/12/2016 5:14 AM CDT 04/12/2016 5:56 AM CDT us Singh Melendrez MD LAB BLOOD ORDERABLES Final Resul t [facility] HISTORICAL RESULTS * (ABNORMAL) Comprehensive metabolic panel (04/11/2016 5:26 AM CDT) Sodium 139 135 - 145 mmol/L 04/11/2016 6:29 AM [facility] [employer] HISTORICAL RESULTS Potassium 3.4 3.3 - 5.1 mmol/L 04/11/2016 6:29 AM [facility] [employer] HISTORICAL RESULTS Chloride 101 96 - 108 mmol/L 04/11/2016 6:29 AM T [facility] [employer] HISTORICAL RESULTS Carbon Dioxide 22 22 - 32 mmol/L 04/11/2016 6:29 AM [facility] [employer] [facility] HISTOR[facility] RESULTS Anion Gap 16 7 - 16 04/11/2016 6:29 AM [facility] [employer] [facility] HISTORICAL RESULTS Glucose 111(H) 70 - 100 mg/dL 04/11/2016 6:29 AM [facility] [employer] [facility] HISTORICAL RESULTS BUN 85(H) 8 - 23 mg/dL 04/11/2016 6:29 AM [facility] Creatinine 6.5(H) 0.5 - 1.3 mg/dL 04/11/2016 6:29 AM [facility] [employer] HISTORICAL RESULTS Comment: NOTE: Estimated GFR (Cockroft-Gault) will NOT be calculated unless patient Height and Weight were entered. Also, Kidney Disease Stage (GFR) and Estimated GFR (Cockroft-Gault) will NOT be calculated if Creatinine result is <0.2. Kidney Disease Stage < 15 mL/MIN 04/11/2016 6:29 AM [facility] [employer] [facility] HISTORICAL RESULTS Comment: NOTE; ??The GFR is an estimated value using the creatinine, sex, age, and race of the patient. THE ESTIMATED GFR IS VALIDATED FOR AGES 18-70 YEARS STAGE ?mL/Min ?DESCRIPTION ??1 ?90 mL/min or more ?Normal or elevated GFR ??2 ? 60-89 mL/min ?Mildly decreased GFR ??3 ? 30-59 mL/min ?Moderately decreased GFR ??4 ? 15-29 mL/min ?Severely decreased GFR ??5 ? <15 mL/min ? Kidney failure or on dialysis @ Est GFR (Cockcroft-G) 9 ml/MIN 04/11/2016 6:29 AM [facility] [employer] [facility] HISTORICAL RESULTS Calcium 8.0(L) 8.8 - 10.2 mg/dL 04/11/2016 6:29 AM [facility] [employer] [facility] HISTORICAL RESULTS Total Protein 5.1(L) 6.4 - 8.3 g/dL 04/11/2016 6:29 AM [facility] Albumin 3.0(L) 3.5 - 5.2 g/dL 04/11/2016 6:29 AM [facility] [employer] [facility] HISTORICAL RESULTS Globulin 2.1(L) 2.3 - 3.5 gm/dL 04/11/2016 6:29 AM [facility] [employer] [facility] HISTOR[facility] RESULTS Albumin/Globulin Ratio 1.4 1.1 - 1.8 04/11/2016 6:29 AM [facility] [employer] [facility] HISTORICAL RESULTS Total Bilirubin 0.3 0.0 - 1.2 mg/dL 04/11/2016 6:29 AM [facility] [employer] [facility] HISTORICAL RESULTS AST 16 0 - 40 U/L 04/11/2016 6:29 AM [facility] HISTORICAL RESULTS ALT 17 0 - 41 U/L 04/11/2016 6:29 AM T [facility] H[facility]ULTS Alkaline Phosphatase 58 40 - 129 U/L 04/11/2016 5:26 AM CDT 04/11/2016 6:01 AM CDT Shayna Landry MD LAB BLOOD ORDERABLES Final Result [facility] HISTORICAL RESULTS * (ABNORMAL) CBC with auto differential (04/11/2016 5:26 AM CDT) WBC 6.4 4.6 - 10.2 x10 3/ul 04/11/2016 6:07 AM T [facility] HISTOR[facility] RESULTS RBC 2.64(L) 4.11 - 5.71 x10 6/ul 04/11/2016 6:07 AM [facility] Hemoglobin 8.3(L) 13.0 - 17.0 g/dl 04/11/2016 6:07 AM [facility] Hct 23.2(L) 38.2 - 48.5 % 04/11/2016 6:07 AM [facility] MCV 87.9 80.0 - 97.0 fl 04/11/2016 6:07 AM [facility] MCH 31.4(H) 27.0 - 31.2 pg 04/11/2016 6:07 AM [facility] MCHC 35.8(H) 31.8 - 35.4 g/dl 04/11/2016 6:07 AM [facility]ULTS RDW 12.4 11.6 - 14.8 % 04/11/2016 6:07 AM [facility] Plt Count 144 124 - 400 x10 3/ul 04/11/2016 6:07 AM [facility] MPV 12.1(H) 7.4 - 10.4 fl 04/11/2016 6:07 AM [facility]ULTS Neut % 61.0 37.0 - 85.0 % Immature Gran % 0.3 0.0 - 3.0 % Lymph % 25.1 5.0 - 45.0 % Trinity % 10.3 3.0 - 15.0 % Eos % 2.7 0.0 - 7.0 % Baso % 0.6 0.0 - 2.0 % Absolute Neuts (auto) 3.9 1.7 - 8.7 x10 3/ul Immature Gran # 0.0 0.0 - 0.3 x10 3/ul Absolute Lymphs (auto) 1.6 0.2 - 4.6 x10 3/ul Absolute Monos (auto) 0.7 0.1 - 1.5 x10 3/ul Absolute Eos (auto) 0.2 0.0 - 0.7 x10 3/ul Absolute Basos (auto) 0.0 0.0 - 0.2 x10 3/ul 04/11/2016 5:26 AM CDT 04/11/2016 6:01 AM CDT Shayna Landry MD LAB BLOOD ORDERABLES Final Result [facility] HISTORICAL RESULTS * Drug Screen, Urine (04/10/2016 12:12 PM CDT) Pathologist [facility] Ur Amphetamine Screen NEGATIVE NEGATIVE Comment: Cutoff Limit: ??1000 ng/mL ??Detects MDMA, MDA, d-Amphetamine, d-Methamphetamine, ?MBDB-HCl, MDEA and BDB-HCl Note: ??Positive results from this drug screen are unconfirmed. ??Unconfirmed screening results should not be used for non-medical purposes. Ur Barbiturates Screen NEGATIVE NEGATIVE Comment: Cutoff limit: ??200 ng/mL ??Detects Secobarbitol, Cyclopentobarbital, Aprobarbital, ?Butalbital, Allobarbital, Butabarbital, ?Pentobarbital, Amobarbital and Phenobarbital U Benzodiazepines Scrn NEGATIVE NEGATIVE Comment:Cutoff limit: 300 ng /mL U Cannabinoids Screen NEGATIVE NEGATIVE Comment:Cutoff Limit: 50 ng/ mL U Cocaine Metab Screen NEGATIVE NEGATIVE Comment:Cutoff limit: 300 ng /mL Urine Opiates Screen NEGATIVE NEGATIVE Comment: Cutoff Limit: ??300 ng/mL Detects Morphine, Codeine, Ethyl Morphine, ?Diacetylmorphine, 6-Acetylmorphine, Dihydrocodeine, ?[id number] and Hydrocodone Ur Oxycodone Screen NEGATIVE NEGATIVE 04/10 1:16 PM [facility] HISTORICAL RESULTS Comment:Cutoff Limit: 100 ng /mL Urine Creatinine/ANTONIO 146.0 mg/dL Comment:If Creatinine is < 4 0 mg/dL, recollection is suggested. 04/10/2016 12:1 2 PM CDT 04/10/2016 12:48 PM CDT Narrative [facility] HISTORICAL RESULTS - 04/10/2016 1:16 PM CDT Collected By t.w. ?? Collected By t.w. us Aurelia Newton [employer] LAB URINE ORDERABLES Final Result Performing Organization Address [facility] de Phone Number [facility] HISTORICAL RESULTS * Urine electrolyte panel (04/10/2016 12:12 PM CDT) Ur Random Sodium 41 mmol/L Comment:Random Specimen: No reference ranges Ur Random Potassium 11.1 mmol/L Comment:Random Specimen: No reference ranges Ur Random Chloride < 20 mmol/L Comment: Random Specimen: ??No reference ranges Ur Random Creatinine 146.0 mg/dL Comment: Reference Range First morning urine: Males 39 - 259 mg/dLRandom Specimen: ??No reference ranges 04/10/2016 12:1 2 PM CDT 04/10/2016 12:48 PM CDT Narrative [facility] HISTORICAL RESULTS - 04/10/2016 1:16 PM CDT Collected By t.w. ?? Collected By t.w. us Aurelia Newton SUPER[employer] LAB BLOOD ORDERABLES Final Result Performing Organization Address [facility] Co de Phone Number [facility] HISTORICAL RESULTS * (ABNORMAL) Ferritin (04/10/2016 11:16 AM CDT) Ferritin 492.4(H) 30.0 - 400.0 ng/mL 04/10/2016 11:1 6 AM CDT 04/10/2016 11:24 AM CDT Shayna Landry MD LAB BLOOD ORDERABLES Final Result [facility] * Iron level (04/10/2016 11:16 AM CDT) Iron 64 59 - 158 ug/dL 04/10/2016 11:51 AM CDT [facility] HISTOR[facility] RESULTS Comment:Fasting specimen pre ferred 04/10/2016 11:1 6 AM CDT 04/10/2016 11:24 AM CDT Shayna Landry MD LAB BLOOD ORDERABLES Final Result Performing Organization Address [facility] Co de Phone Number [facility] HISTORICAL RESULTS * (ABNORMAL) CBC with auto differential (04/10/2016 7:46 AM CDT) WBC 7.0 4.6 - 10.2 x10 3/ul 04/10/2016 7:56 AM T [facility] HISTORICAL RESULTS RBC 2.70(L) 4.11 - 5.71 x10 6/ul 04/10/2016 7:56 AM [facility] Hemoglobin 8.5(L) 13.0 - 17.0 g/dl 04/10/2016 7:56 AM T [facility] HISTOR[facility] RESULTS Hct 23.7(L) 38.2 - 48.5 % 04/10/2016 7:56 AM [facility] MCV 87.8 80.0 - 97.0 fl 04/10/2016 7:56 AM [facility] MCH 31.5(H) 27.0 - 31.2 pg 04/10/2016 7:56 AM [facility] MCHC 35.9(H) 31.8 - 35.4 g/dl 04/10/2016 7:56 AM T [facility] HISTORICAL RESULTS RDW 12.6 11.6 - 14.8 % 04/10/2016 7:56 AM [facility] HISTORICAL RESULTS Plt Count 148 124 - 400 x10 3/ul MPV 11.3(H) 7.4 - 10.4 fl Neut % 64.5 37.0 - 85.0 % Immature Gran % 0.6 0.0 - 3.0 % Lymph % 20.9 5.0 - 45.0 % Trinity % 11.7 3.0 - 15.0 % Eos % 2.0 0.0 - 7.0 % Baso % 0.3 0.0 - 2.0 % Absolute Neuts (auto) 4.5 1.7 - 8.7 x10 3/ul Immature Gran # 0.0 0.0 - 0.3 x10 3/ul Absolute Lymphs (auto) 1.5 0.2 - 4.6 x10 3/ul Absolute Monos (auto) 0.8 0.1 - 1.5 x10 3/ul Absolute Eos (auto) 0.1 0.0 - 0.7 x10 3/ul 04/10/2016 7:56 AM [facility] HISTORICAL RESULTS Absolute Basos (auto) 0.0 0.0 - 0.2 x10 3/ul 04/10/2016 7:46 AM CDT 04/10/2016 7:50 AM T Chaka Frank MD LAB BLOOD ORDERABLES Final Re sult [facility] HISTORICAL RESULTS * (ABNORMAL) Basic metabolic panel (04/10/2016 7:46 AM CDT) Sodium 136 135 - 145 mmol/L Potassium 2.9(L) 3.3 - 5.1 mmol/L Chloride 101 96 - 108 mmol/L Carbon Dioxide 16(L) 22 - 32 mmol/L Anion Gap 19(H) 7 - 16 Glucose 122(H) 70 - 100 mg/dL BUN 94(H) 8 - 23 mg/dL Creatinine 7.9(H) 0.5 - 1.3 mg/dL Comment: NOTE: Estimated GFR (Cockroft-Gault) will NOT be calculated unless patient Height and Weight were entered. Also, Kidney Disease Stage (GFR) and Estimated GFR (Cockroft-Gault) will NOT be calculated if Creatinine result is <0.2. Kidney Disease Stage < 15 mL/MIN Comment: NOTE; ??The GFR is an estimated value using the creatinine, sex, age, and race of the patient. THE ESTIMATED GFR IS VALIDATED FOR AGES 18-70 YEARS STAGE ?mL/Min ?DESCRIPTION ??1 ?90 mL/min or more ?Normal or elevated GFR ??2 ? 60-89 mL/min ?Mildly decreased GFR ??3 ? 30-59 mL/min ?Moderately decreased GFR ??4 ? 15-29 mL/min ?Severely decreased GFR ??5 ? <15 mL/min ? Kidney failure or on dialysis @ Est GFR (Cockcroft-G) 7 ml/MIN Calcium 8.0(L) 8.8 - 10.2 mg/dL 04/10/2016 7:46 AM CDT 04/10/2016 7:50 AM CDT us Chaka Frank MD LAB BLOOD ORDERABLES Final Re sult Performing Organization Address [facility] de Phone Number [facility] HISTORICAL RESULTS * T4, free (04/10/2016 4:33 AM CDT) Free T4 1.36 0.93 - 1.70 ng/dL 04/10/2016 4:33 AM CDT 04/10/2016 4:59 AM CDT Singh Melendrez MD LAB BLOOD ORDERABLES Final Resul t Performing Organization Address [facility] de Phone Number [facility] HISTORICAL RESULTS * (ABNORMAL) Phosphorus (04/10/2016 4:33 AM CDT) Phosphorus 5.4(H) 2.5 - 4.5 mg/dL 04/10/2016 4:33 AM CDT 04/10/2016 4:59 AM CDT us Singh Melendrez MD LAB BLOOD ORDERABLES Final Resul t Performing Organization Address [facility] de Phone Number [facility] HISTORICAL RESULTS * Magnesium (04/10/2016 4:33 AM CDT) Pathologist [facility] Magnesium 2.4 1.6 - 2.6 mg/dL Comment:Magnesium sulfate th erapy: 3.0-9.1 mg/dL 04/10/2016 4:33 AM CDT 04/10/2016 4:59 AM CDT Singh Melendrez MD LAB BLOOD ORDERABLES Final Resul t Performing Organization Address [facility] de Phone Number [facility] HISTORICAL RESULTS * (ABNORMAL) TSH (04/10/2016 4:33 AM CDT) [facility] TSH 0.25(L) 0.27 - 4.20 uIU/mL 04/10/2016 4:33 AM CDT 04/10/2016 4:59 AM CDT Singh Melendrez MD LAB BLOOD ORDERABLES Final Resul t Performing Organization Address [facility] de Phone Number [facility] HISTORICAL RESULTS * (ABNORMAL) CBC with auto differential (04/10/2016 4:33 AM CDT) [facility] WBC 6.9 4.6 - 10.2 x10 3/ul Comment:Results reviewed RBC 2.88(L) 4.11 - 5.71 x10 6/ul Comment:Results reviewed Hemoglobin 9.0(L) 13.0 - 17.0 g/dl Comment:Results reviewed Hct 26.1(L) 38.2 - 48.5 % MCV 90.6 80.0 - 97.0 fl MCH 31.3(H) 27.0 - 31.2 pg 04/10/2016 5:13 AM [facility] HISTORICAL RESULTS MCHC 34.5 31.8 - 35.4 g/dl 04/10/2016 5:13 AM [facility] HISTORICAL RESULTS RDW 12.5 11.6 - 14.8 % 04/10/2016 5:13 AM [facility] HISTORICAL RESULTS Plt Count 152 124 - 400 x10 3/ul 04/10/2016 5:13 AM [facility] HISTORICAL RESULTS MPV 12.5(H) 7.4 - 10.4 fl 04/10/2016 5:13 AM [facility] [employer] [facility] HISTORICAL RESULTS Neut % 63.1 37.0 - 85.0 % 04/10/2016 5:13 AM [facility] [employer] [facility] HISTORICAL RESULTS Immature Gran % 0.3 0.0 - 3.0 % 04/10/2016 5:13 AM [facility] HISTORICAL RESULTS Lymph % 22.9 5.0 - 45.0 % 04/10/2016 5:13 AM [facility] HISTORICAL RESULTS Trinity % 11.0 3.0 - 15.0 % 04/10/2016 5:13 AM [facility] HISTORICAL RESULTS Eos % 2.3 0.0 - 7.0 % 04/10/2016 5:13 AM [facility] HISTORICAL RESULTS Baso % 0.4 0.0 - 2.0 % 04/10/2016 5:13 AM [facility] HISTORICAL RESULTS Absolute Neuts (auto) 4.4 1.7 - 8.7 x10 3/ul 04/10/2016 5:13 AM [facility] HISTORICAL RESULTS Immature Gran # 0.0 0.0 - 0.3 x10 3/ul 04/10/2016 5:13 AM [facility] HISTORICAL RESULTS Absolute Lymphs (auto) 1.6 0.2 - 4.6 x10 3/ul 04/10/2016 5:13 AM [facility] [employer] [facility] HISTORICAL RESULTS Absolute Monos (auto) 0.8 0.1 - 1.5 x10 3/ul Absolute Eos (auto) 0.2 0.0 - 0.7 x10 3/ul Absolute Basos (auto) 0.0 0.0 - 0.2 x10 3/ul 04/10/2016 4:33 AM CDT 04/10/2016 5:00 AM CDT us Singh Melendrez MD LAB BLOOD ORDERABLES Final Resul t [facility] HISTORICAL RESULTS * (ABNORMAL) Basic metabolic panel (04/10/2016 4:33 AM CDT) Sodium 135 135 - 145 mmol/L Potassium 2.9(L) 3.3 - 5.1 mmol/L Chloride 101 96 - 108 mmol/L Carbon Dioxide 12(L) 22 - 32 mmol/L Comment:Results reviewed Anion Gap 22(H) 7 - 16 Glucose 124(H) 70 - 100 mg/dL BUN 94(H) 8 - 23 mg/dL Creatinine 8.0(H) 0.5 - 1.3 mg/dL Comment: NOTE: Estimated GFR (Cockroft-Gault) will NOT be calculated unless patient Height and Weight were entered. Also, Kidney Disease Stage (GFR) and Estimated GFR (Cockroft-Gault) will NOT be calculated if Creatinine result is <0.2. Kidney Disease Stage < 15 mL/MIN Comment: NOTE; ??The GFR is an estimated value using the creatinine, sex, age, and race of the patient. THE ESTIMATED GFR IS VALIDATED FOR AGES 18-70 YEARS STAGE ?mL/Min ?DESCRIPTION ??1 ?90 mL/min or more ?Normal or elevated GFR ??2 ? 60-89 mL/min ?Mildly decreased GFR ??3 ? 30-59 mL/min ?Moderately decreased GFR ??4 ? 15-29 mL/min ?Severely decreased GFR ??5 ? <15 mL/min ? Kidney failure or on dialysis @ Est GFR (Cockcroft-G) 7 ml/MIN Calcium 8.2(L) 8.8 - 10.2 mg/dL 04/10/2016 4:33 AM CDT 04/10/2016 4:59 AM CDT us Singh Melendrez MD LAB BLOOD ORDERABLES Final Resul t [facility] HISTORICAL RESULTS * CT Abdomen Pelvis WO Contrast (04/10/2016 12:00 AM CDT) Anatomical Region Laterality Modality Body N/A Computed Tomogra phy 04/10/2016 Impressions 04/10/2016 2:47 PM CDT 1. ??No colonic structure is identified. 2. ??There is focal thickening of the terminal ileum. ??Correlation with clinical history is recommended with regards to the possibility of Crohn's disease. ??Infectious enteritis is a consideration. 3. ??No small bowel obstruction. 4. ??No nephrolithiasis or obstructing calculus. THIS IS AN ELECTRONICALLY VERIFIED REPORT 04/10/2016 2:44 PM: ??Itz Gonzalez M.D. ?? Itz Gonzalez M.D. AT:at 02:44 PM 02:44 PM BM [EOD] Narrative 04/10/2016 2:47 PM CDT EXAMINATION: ??CT ABDOMEN AND PELVIS WITHOUT IV CONTRAST DATE: ??04/10/2016 COMPARISON: 02/16/2016 INDICATION: ??Abdominal discomfort and bloating for a few days. ??Pain across the medial and anterior mid abdomen. ??Symptoms present for 2 months. TECHNIQUE: ??The examination is performed without IV contrast. ??Oral contrast was administered, 40 ounces. ?? FINDINGS: Images of the lung bases are unremarkable. There is a fluid density 0.9 cm mass within the right hepatic dome on image 19 of series 2. ??The spleen, pancreas, adrenal glands, and gallbladder demonstrate an unremarkable noncontrast CT appearance. There is no nephrolithiasis. ??Renal collecting system is not significantly dilated. ??Bladder is decompressed around a Prescott catheter. ??There is a small amount of air within the bladder. Aorta demonstrates normal course and caliber. ??Retroaortic left renal vein is noted. ??Aorta demonstrates moderate atherosclerotic calcifications. ??There is mural thickening of the terminal ileum well visualized on image 31 of series 4. ??Postsurgical changes are noted at the cecum. ??Moderate osteoarthritic changes of the spine are noted. Procedure Note Provider, MD Js - 03/14/2021 EXAMINATION: CT ABDOMEN AND PELVIS WITHOUT IV CONTRAST DATE: 04/10/2016 COMPARISON: 02/16/2016 INDICATION: Abdominal discomfort and bloating for a few days. Painacross the medial and anterior mid abdomen. Symptoms present for 2 months. TECHNIQUE: The examination is performed without IV contrast. Oralcontrast was administered, 40 ounces. FINDINGS: Images of the lung bases are unremarkable. There is a fluid density 0.9 cm mass within the right hepatic dome onimage 19 of series 2. The spleen, pancreas, adrenal glands, and gallbladder demonstrate an unremarkable noncontrast CT appearance. There is no nephrolithiasis. Renal collecting system is not significantly dilated. Bladder is decompressed around a Prescott catheter. There is asmall amount of air within the bladder. Aorta demonstrates normal course and caliber. Retroaortic left renal veinis noted. Aorta demonstrates moderate atherosclerotic calcifications. Thereis mural thickening of the terminal ileum well visualized on image 31 ofseries 4. Postsurgical changes are noted at the cecum. 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 IMPRESSION: 1. No colonic structure is identified. 2. There is focal thickening of the terminal ileum. Correlation with clinical history is recommended with regards to the possibility of Crohn's disease. Infectious enteritis is a consideration. 3. No small bowel obstruction. 4. No nephrolithiasis or obstructing calculus. THIS IS AN ELECTRONICALLY VERIFIED REPORT 04/10/2016 2:44 PM: Itz Gonzalez M.D. Itz Gonzalez M.D. AT:at 02:44 PM 02:[address] [facility] [EOD] us Shayna Landry MD IMG CT PROCEDURES Final Re sult * Salicylate level (04/09/2016 2:10 PM CDT) Salicylates < 1 0 - 29 mg/dL 04/09/2016 2:10 PM CDT 04/09/2016 2:19 PM CDT Narrative [facility] HISTORICAL RESULTS - 04/09/2016 2:49 PM CDT us Shayna Landry MD LAB BLOOD ORDERABLES Final Result [facility] HISTORICAL RESULTS * Lactate (04/09/2016 2:10 PM CDT) L-Lactate 0.8 mmol/L Comment:Lactate Reference Ra nge: 0.5 - 2.2 mmol/L 04/09/2016 2:10 PM CDT 04/09/2016 2:19 PM CDT Narrative [facility] HISTORICAL RESULTS - 04/09/2016 3:03 PM CDT us Historical Provider LAB BLOOD ORDERABLES Shruthi l Result Performing Organization Address [facility] Co de Phone Number [facility] HISTORICAL RESULTS * (ABNORMAL) Urinalysis reflex to microscopic and culture (04/09/2016 12:45 PM CDT) [facility] Ur Collection Type CLEAN CATCH Ur Culture Indicated? C&S NOT INDICATED Urine Color YELLOW YELLOW Urine Clarity CLOUDY CLEAR Urine Glucose (UA) NORMAL NORMAL mg/dL Urine Bilirubin NEGATIVE NEGATIVE mg/dl Urine Ketones NEGATIVE NEGATIVE mg/dL Ur Specific [place] 1.015 1.005 - 1.025 Urine Blood NEGATIVE NEGATIVE mg/dl Urine pH 5.0 5.0 - 8.0 Urine Protein NEGATIVE NEGATIVE mg/dL Urine Urobilinogen NORMAL NORMAL mg/dL Urine Nitrite NEGATIVE NEGATIVE Ur Leukocyte Esterase 25(H) NEGATIVE Al/ul Ur Microscopic Review Indicated or Ordered Urine RBC 1 0 - 2 /HPF Urine WBC 3 0 - 2 /HPF Urine Bacteria Rare /HPF Urine Mucus RARE /LPF Ur Squamous Epith Cells Rare /HPF Amorphous Crystals RARE /HPF Hyaline Casts 20 0 - 2 /LPF 04/09/2016 12:4 5 PM CDT 04/09/2016 1:41 PM CDT Narrative [facility] HISTORICAL RESULTS - 04/09/2016 2:10 PM CDT us Kenyatta Stanley NP LAB MICROBIOLOGY - GENERAL ORDE RABLES Final Result Performing Organization Address [facility]/ZIP Co de Phone Number [facility] HISTORICAL RESULTS * (ABNORMAL) Phosphorus (04/09/2016 11:10 AM CDT) Phosphorus 7.0(H) 2.5 - 4.5 mg/dL 04/09/2016 11:1 0 AM CDT 04/09/2016 11:13 AM CDT us Kenyatta Stanley NP LAB BLOOD ORDERABLES Final Resu lt [facility] HISTORICAL RESULTS * Magnesium (04/09/2016 11:10 AM CDT) Magnesium 2.6 1.6 - 2.6 mg/dL Comment:Magnesium sulfate th erapy: 3.0-9.1 mg/dL 04/09/2016 11:1 0 AM CDT 04/09/2016 11:13 AM CDT us Kenyatta Stanley NP LAB BLOOD ORDERABLES Final Resu lt Performing Organization Address [facility] de Phone Number [facility] HISTORICAL RESULTS * Creatine kinase (CK), total (04/09/2016 11:10 AM CDT) Creatine Kinase 48 20 - 200 U/L 04/09/2016 11:1 0 AM CDT 04/09/2016 11:13 AM CDT us Kenyatta Stanley NP LAB BLOOD ORDERABLES Final Resu lt Performing Organization Address [facility] de Phone Number [facility] HISTORICAL RESULTS * Protime-INR (04/09/2016 11:10 AM CDT) PT 13.8 11.8 - 14.5 SECONDS INR 1.04 0.01 - 5.99 Comment: Recommended Therapeutic range for Oral Anticoagulant Therapy No anti-coagulation therapy ? Normal Range: ?0.8-1.4 Anti-coagulation therapy ? Low intensity therapy ?2.0-3.0 ? High intensity therapy ?? 2.5-3.5 Critical Value ? Greater than or equal to 6.0 Patients should be monitored for serious bleeding. ?? 04/09/2016 11:1 0 AM CDT 04/09/2016 11:13 AM CDT us Kenyatta Stanley [employer] LAB BLOOD ORDERABLES Final Resu lt Performing Organization Address [facility] Co de Phone Number [facility] HISTORICAL RESULTS * aPTT (04/09/2016 11:10 AM CDT) APTT 26 26 - 33 SECONDS 04/09/2016 11:1 0 AM CDT 04/09/2016 11:13 AM CDT Kenyatta Stanley [employer] LAB BLOOD ORDERABLES Final Resu lt Performing Organization Address [facility] de Phone Number [facility] HISTORICAL RESULTS * (ABNORMAL) Comprehensive metabolic panel (04/09/2016 11:10 AM CDT) Sodium 134(L) 135 - 145 mmol/L Potassium 4.1 3.3 - 5.1 mmol/L Chloride 104 96 - 108 mmol/L Carbon Dioxide 7(L) 22 - 32 mmol/L Anion Gap 23(H) 7 - 16 Glucose 126(H) 70 - 100 mg/dL BUN 85(H) 8 - 23 mg/dL Creatinine 8.1(H) 0.5 - 1.3 mg/dL Comment: NOTE: Estimated GFR (Cockroft-Gault) will NOT be calculated unless patient Height and Weight were entered. Also, Kidney Disease Stage (GFR) and Estimated GFR (Cockroft-Gault) will NOT be calculated if Creatinine result is <0.2. Kidney Disease Stage < 15 mL/MIN Comment: NOTE; ??The GFR is an estimated value using the creatinine, sex, age, and race of the patient. THE ESTIMATED GFR IS VALIDATED FOR AGES 18-70 YEARS STAGE ?mL/Min ?DESCRIPTION ??1 ?90 mL/min or more ?Normal or elevated GFR ??2 ? 60-89 mL/min ?Mildly decreased GFR ??3 ? 30-59 mL/min ?Moderately decreased GFR ??4 ? 15-29 mL/min ?Severely decreased GFR ??5 ? <15 mL/min ? Kidney failure or on dialysis @ Est GFR (Cockcroft-G) 7 ml/MIN Calcium 9.0 8.8 - 10.2 mg/dL Total Protein 6.7 6.4 - 8.3 g/dL Albumin 4.0 3.5 - 5.2 g/dL Globulin 2.7 2.3 - 3.5 gm/dL Albumin/Globulin Ratio 1.5 1.1 - 1.8 Total Bilirubin 0.2 0.0 - 1.2 mg/dL 04/09/2016 11:41 AM CDT [facility] [employer] HISTORICAL RESULTS AST 10 0 - 40 U/L 04/09/2016 11:41 AM CDT [facility] [employer] HISTORICAL RESULTS ALT 18 0 - 41 U/L Alkaline Phosphatase 81 40 - 129 U/L 04/09/2016 11:41 AM CDT [facility] HISTORICAL RESULTS 04/09/2016 11:1 0 AM CDT 04/09/2016 11:13 AM CDT us Kenyatta Stanley [employer] LAB BLOOD ORDERABLES Final Resu lt [facility] HISTORICAL RESULTS * (ABNORMAL) CBC with auto differential (04/09/2016 11:10 AM CDT) WBC 12.2(H) 4.6 - 10.2 x10 3/ul 04/09/2016 11:18 AM CDT [facility] [employer] HISTORICAL RESULTS RBC 3.63(L) 4.11 - 5.71 x10 6/ul 04/09/2016 11:18 AM CDT [facility] HISTORICAL RESULTS Hemoglobin 11.7(L) 13.0 - 17.0 g/dl 04/09/2016 11:18 AM CDT [facility] HISTORICAL RESULTS Hct 34.0(L) 38.2 - 48.5 % 04/09/2016 11:18 AM CDT [facility] HISTORICAL RESULTS MCV 93.7 80.0 - 97.0 fl 04/09/2016 11:18 AM CDT [facility] HISTORICAL RESULTS MCH 32.2(H) 27.0 - 31.2 pg 04/09/2016 11:18 AM CDT [facility] [employer] HISTORICAL RESULTS MCHC 34.4 31.8 - 35.4 g/dl 04/09/2016 11:18 AM CDT [facility] [employer] HISTORICAL RESULTS RDW 12.8 11.6 - 14.8 % 04/09/2016 11:18 AM CDT [facility] [employer] HISTORICAL RESULTS Plt Count 192 124 - 400 x10 3/ul 04/09/2016 11:18 AM CDT [facility] [employer] HISTORICAL RESULTS MPV 11.8(H) 7.4 - 10.4 fl Neut % 83.6 37.0 - 85.0 % Immature Gran % 0.3 0.0 - 3.0 % Lymph % 9.6 5.0 - 45.0 % Trinity % 6.2 3.0 - 15.0 % Eos % 0.1 0.0 - 7.0 % Baso % 0.2 0.0 - 2.0 % ABSOLUTE COUNTS ABSOLUTE COUNTS --------- -- Absolute Neuts (auto) 10.2(H) 1.7 - 8.7 x10 3/ul Immature Gran # 0.0 0.0 - 0.3 x10 3/ul Absolute Lymphs (auto) 1.2 0.2 - 4.6 x10 3/ul Absolute Monos (auto) 0.8 0.1 - 1.5 x10 3/ul Absolute Eos (auto) 0.0 0.0 - 0.7 x10 3/ul Absolute Basos (auto) 0.0 0.0 - 0.2 x10 3/ul 04/09/2016 11:1 0 AM CDT 04/09/2016 11:13 AM CDT us Kenyatta Stanley NP LAB BLOOD ORDERABLES Final Resu lt [facility] HISTORICAL RESULTS * XR Chest 1 View (04/09/2016 12:00 AM CDT) Anatomical Region Laterality Modality Body, Chest N/A Radiographic Leola ging 04/09/2016 Impressions 04/09/2016 1:41 PM CDT No acute cardiopulmonary disease. THIS IS AN ELECTRONICALLY VERIFIED REPORT 04/09/2016 1:37 PM: ??Bryce Akers M.D. ?? Bryce Akers M.D. DS:tatiana 01:37 PM 01:[address] [facility] [EOD] Narrative 04/09/2016 1:41 PM CDT EXAMINATION: ??AP supine chest HISTORY: ??Cough for 2 days COMPARISON: ??Radiograph 07/22/2015 FINDINGS: Normal heart size. ??Lungs are clear. ??No pneumothorax or effusion. Procedure Note Provider, MD Js - 03/14/2021 EXAMINATION: AP supine chest HISTORY: Cough for 2 days COMPARISON: Radiograph 07/22/2015 FINDINGS: Normal heart size. Lungs are clear. No pneumothorax or effusion. IMPRESSION: No acute cardiopulmonary disease. THIS IS AN ELECTRONICALLY VERIFIED REPORT 04/09/2016 1:37 PM: Bryce Akers M.D. Bryce Akers M.D. DS:tatiana 01:37 PM 01:[address] [facility] [EOD] us Kenyatta Stanley SUPER[employer]INTE[employer] IMG XR PROCEDURES Final Result * XR Chest 1 View (04/09/2016 12:00 AM CDT) Anatomical Region Laterality Modality Body, Chest N/A Radiographic Leola ging 04/09/2016 Impressions 04/09/2016 3:09 PM CDT ??No focal areas of consolidation or pleural effusions. THIS IS AN ELECTRONICALLY VERIFIED REPORT 04/09/2016 3:09 PM: ??Lay Rahman M.D. ?? Lay Rahman M.D. SS:marcellus 03:09 PM 03:09 PM [facility] [EOD] Narrative 04/09/2016 3:09 PM CDT EXAMINATION: ??One-view chest dated 04/09/16 at 1412 hours HISTORY: Feeling unwell for the past week, chills, body aches and weakness, history of coronary artery disease and hypertension COMPARISON: ??One-view chest performed on the same date, 04/09/16 at 1302 hours TECHNIQUE: ??A single lateral view of the chest is submitted. FINDINGS: ??The heart is normal in size. ??No focal areas of consolidation or pleural effusions on this lateral view of the chest. ??The visualized osseous structures are unremarkable. Procedure Note Provider, MD Js - 03/14/2021 EXAMINATION: One-view chest dated 04/09/16 at 1412 hours HISTORY: Feeling unwell for the past week, chills, body aches andweakness, history of coronary artery disease and hypertension COMPARISON: One-view chest performed on the same date, 04/09/16 at 1302hours TECHNIQUE: A single lateral view of the chest is submitted. FINDINGS: The heart is normal in size. No focal areas of consolidationor pleural effusions on this lateral view of the chest. The visualizedosseous structures are unremarkable. IMPRESSION: No focal areas of consolidation or pleural effusions. THIS IS AN ELECTRONICALLY VERIFIED REPORT 04/09/2016 3:09 PM: Lay Rahman M.D. Lay Rahman M.D. SS:ss 03:09 PM 03:09 PM [facility] [EOD] Singh Melendrez MD IMG XR PROCEDURES Final Result * CT Head WO Contrast (04/09/2016 12:00 AM CDT) Anatomical Region Laterality Modality Head and Neck N/A Computed Tomogra phy 04/09/2016 Impressions 04/09/2016 10:57 AM CDT ??1. ??No definitive evidence of an acute intracranial abnormality. 2. ??Low attenuation of the right anterior limb internal capsule, may be age indeterminate lacunar infarction. 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 3. ??Air fluid level right maxillary sinus, correlate for acute sinusitis. THIS IS AN ELECTRONICALLY VERIFIED REPORT 04/09/2016 10:53 AM: ??Emanuel Orozco M.D. ?? Emanuel Orozco M.D. CH: 10:53 AM 10:[address] [facility] [EOD] Narrative 04/09/2016 10:57 AM CDT EXAMINATION: ??CT head without contrast. HISTORY: ??Fall last night on the right side after dizziness, now with posterior headache and neck pain. TECHNIQUE: ??Noncontrast CT images were obtained through the head. COMPARISON: ??None. FINDINGS: ??No acute intracranial hemorrhage, extra-axial fluid collection, mass, or mass effect is seen. ??There is no hydrocephalus. ??Mild moderate periventricular and subcortical white matter hypo attenuation is seen, while this is nonspecific, is compatible with chronic microangiopathic gliosis. ?? There is an area of low attenuation along the anterior limb of the right internal capsule measuring 0.4 cm, likely a lacunar infarction which is age indeterminate. ??Bone windows show no acute skull base or calvarial abnormality. ??Trace right mastoid effusion is noted. There is an air-fluid level of the right maxillary sinus. Procedure Note Provider, MD Js - 03/14/2021 EXAMINATION: CT head without contrast. HISTORY: Fall last night on the right side after dizziness, now with posterior headache and neck pain. TECHNIQUE: Noncontrast CT images were obtained through the head. COMPARISON: None. FINDINGS: No acute intracranial hemorrhage, extra-axial fluid collection, mass, or mass effect is seen. There is no hydrocephalus. Mild moderate periventricular and subcortical white matter hypo attenuation is seen,while this is nonspecific, is compatible with chronic microangiopathic gliosis. There is an area of low attenuation along the anterior limb of the right internal capsule measuring 0.4 cm, likely a lacunar infarction which isage indeterminate. Bone windows show no acute skull base or calvarial abnormality. Trace right mastoid effusion is noted. There is an air-fluid level of the right maxillary sinus. IMPRESSION: 1. No definitive evidence of an acute intracranialabnormality. 2. Low attenuation of the right anterior limb internal capsule, may beage indeterminate lacunar infarction. Findings compatible with mild tomoderate chronic microangiopathic gliosis. 3. Air fluid level right maxillary sinus, correlate for acutesinusitis. THIS IS AN ELECTRONICALLY VERIFIED REPORT 04/09/2016 10:53 AM: Emanuel Orozco M.D. Emanuel Orozco M.D. CH:[place]cho 10:53 AM 10:[address] [facility] [EOD] Kenyatta Stanley SUPERVISOR INSTRUMENT MAINTENANCE IMG CT PROCEDURES Final Result * XR Shoulder Left 2 or More Views (04/09/2016 12:00 AM CDT) Anatomical Region Laterality Modality Upper Extremities, Shoulder Left Radi ographic Imaging 04/09/2016 Impressions 04/09/2016 1:41 PM CDT ??Mild osteoarthritic change of left shoulder with no acute osseous abnormality. THIS IS AN ELECTRONICALLY VERIFIED REPORT 04/09/2016 1:37 PM: ??Emanuel Orozco M.D. ?? Emanuel Orozco M.D. CH: 01:37 PM 01:[address] [facility] [EOD] Narrative 04/09/2016 1:41 PM CDT EXAMINATION: ??Left shoulder series. HISTORY: ??Status post fall today with pain, limited range of motion. TECHNIQUE: ??AP internal, external, scapular Y views left shoulder. COMPARISON: ??None. FINDINGS: ??Left humeral head projects normally over the glenoid. ??No acute fracture or dislocation is identified. ??Mild arthritic changes are noted. ??The acromioclavicular coracoclavicular distances appear maintained. Procedure Note Provider, MD Js - 03/14/2021 EXAMINATION: Left shoulder series. HISTORY: Status post fall today with pain, limited range of motion. TECHNIQUE: AP internal, external, scapular Y views left shoulder. COMPARISON: None. FINDINGS: Left humeral head projects normally over the glenoid. No acute fracture or dislocation is identified. Mild arthritic changes are noted.The acromioclavicular coracoclavicular distances appear maintained. IMPRESSION: Mild osteoarthritic change of left shoulder with no acuteosseous abnormality. THIS IS AN ELECTRONICALLY VERIFIED REPORT 04/09/2016 1:37 PM: Emanuel Orozco M.D. Emanuel Orozco M.D. CH:lencho 01:37 PM 01:[address] [facility] [EOD] us Kenyatta Stanley SUPERVISOR INSTRUMENT MAINTENANCE IMG XR PROCEDURES Final Result * XR Shoulder Right 2 or More Views (04/09/2016 12:00 AM CDT) Anatomical Region Laterality Modality Upper Extremities, Shoulder Right Radi ographic Imaging 04/09/2016 Impressions 04/09/2016 1:43 PM CDT ??Mild osteoarthritic change of the right shoulder with no acute osseous abnormality. THIS IS AN ELECTRONICALLY VERIFIED REPORT 04/09/2016 1:39 PM: ??Emanuel Orozco M.D. ?? Emanuel Orozco M.D. CH: 01:39 PM 01:[address] [facility] [EOD] Narrative 04/09/2016 1:43 PM CDT EXAMINATION: ??Right shoulder series. HISTORY: ??Right shoulder pain status post fall today. TECHNIQUE: ??AP internal, external, and scapular Y views right shoulder. COMPARISON: ??None. FINDINGS: ??Right humeral head projects normally over the glenoid. ??No acute fracture or dislocation is seen. ??The acromioclavicular joint aligns normally. Mild osteoarthritic change is seen. Procedure Note Provider, MD Js - 03/14/2021 EXAMINATION: Right shoulder series. HISTORY: Right shoulder pain status post fall today. TECHNIQUE: AP internal, external, and scapular Y views right shoulder. COMPARISON: None. FINDINGS: Right humeral head projects normally over the glenoid. Noacute fracture or dislocation is seen. The acromioclavicular joint alignsnormally. Mild osteoarthritic change is seen. IMPRESSION: Mild osteoarthritic change of the right shoulder with noacute osseous abnormality. THIS IS AN ELECTRONICALLY VERIFIED REPORT 04/09/2016 1:39 PM: Emanuel Orozco M.D. Emanuel Orozco M.D. CH:lencho 01:39 PM 01:[address] [facility] [EOD] us Kenyatta Stanley SUPERVISOR INSTRUMENT MAINTENANCE IMG XR PROCEDURES Final Result * US Kidney Complete (04/09/2016 12:00 AM CDT) Anatomical Region Laterality Modality Kidney N/A Ultrasound 04/09/2016 Impressions 04/09/2016 3:51 PM CDT Unremarkable renal ultrasound. THIS IS AN ELECTRONICALLY VERIFIED REPORT 04/09/2016 3:47 PM: ??Bryce Akers M.D. ?? Bryce Akers M.D. DS:ds 03:47 PM 03:[address] [facility] [EOD] Narrative 04/09/2016 3:51 PM CDT EXAMINATION: ??Renal ultrasound HISTORY: ??Decreased urine output, acute renal failure for 2 weeks TECHNIQUE: ??Renal ultrasound shell scale and color flow. COMPARISON: ??CT 02/16/2016 FINDINGS: 9.2 x 5.4 x 4.2 cm right kidney. ??8.8 x 4.4 x 4.4 cm left kidney. ??The kidneys have a normal size, shape, position, and cortex. The bladder is decompressed with a Prescott catheter. Procedure Note Provider, MD Js - 03/14/2021 EXAMINATION: Renal ultrasound HISTORY: Decreased urine output, acute renal failure for 2 weeks TECHNIQUE: Renal ultrasound shell scale and color flow. COMPARISON: CT 02/16/2016 FINDINGS: 9.2 x 5.4 x 4.2 cm right kidney. 8.8 x 4.4 x 4.4 cm left kidney. Thekidneys have a normal size, shape, position, and cortex. The bladder is decompressed with a Prescott catheter. IMPRESSION: Unremarkable renal ultrasound. THIS IS AN ELECTRONICALLY VERIFIED REPORT 04/09/2016 3:47 PM: Bryce Akers M.D. Bryce Akers M.D. DS:ds 03:47 PM 03:[address] [facility] [EOD] us Aurelia Vang Aman SUPERVISOR INSTRUMENT MAINTENANCE IMG US PROCEDURES Fin al Result * CT Cervical Spine WO Contrast (04/09/2016 12:00 AM CDT) Anatomical Region Laterality Modality Spine N/A Computed Tomogra phy 04/09/2016 Impressions 04/09/2016 10:53 AM CDT ??1. ??No acute osseous abnormality the cervical spine. 2. ??Dextro curvature with grade 1 anterolisthesis of C3-4 and C4-5, grade 2 C5 on C6 which appears degenerative. 3. ??Uncovertebral joint and facet arthropathy. 4. ??Degenerative pannus formation at the craniocervical junction. ??Congenital nonunion anterior arch of C1. 5. ??Dense left carotid arterial calcification. THIS IS AN ELECTRONICALLY VERIFIED REPORT 04/09/2016 10:49 AM: ??Emanuel Orozco M.D. ?? Emanuel Orozco M.D. CH:lencho 10:49 AM 10:[address] [facility] [EOD] Narrative 04/09/2016 10:53 AM CDT EXAMINATION: ??CT cervical spine without contrast. HISTORY: ??Fall last night on the right side after dizziness now with posterior head and neck pain. TECHNIQUE: ??Noncontrast CT images were obtained through the cervical spine. COMPARISON: ??None. FINDINGS: ??Dense left carotid arterial and mild right carotid arterial calcification is noted. ??There is a dextrocurvature of the cervical spine. ?? The lateral masses of C1 align normally on C2. ??There is pannus formation on a degenerative basis at the craniocervical articulation. 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 ??Anterolisthesis is seen of the C3 and C4 of 0.2 cm, C4 on C5 of 0.3 cm, and, 0 and C5 on C6 of 0.5 cm. ?? Facets align normally, suggesting that the anterolisthesis is due to degenerative change. ??Advanced facet arthropathy is noted, left worse than right at C3-4 and C4-5. Uncovertebral joint hypertrophy is also identified. No acute fracture is identified. ??The lung apices are clear. ??Debris is noted within the upper thoracic esophagus. Procedure Note Provider, MD Js - 03/14/2021 EXAMINATION: CT cervical spine without contrast. HISTORY: Fall last night on the right side after dizziness now withposterior head and neck pain. TECHNIQUE: Noncontrast CT images were obtained through the cervicalspine. COMPARISON: None. FINDINGS: Dense left carotid arterial and mild right carotid arterial calcification is noted. There is a dextrocurvature of the cervical spine. The lateral masses of C1 align normally on C2. There is pannus formationon a degenerative basis at the craniocervical articulation. There is nonfusionof the anterior arch of C1 on a congenital basis. Anterolisthesis is seen ofthe C3 and C4 of 0.2 cm, C4 on C5 of 0.3 cm, and, 0 and C5 on C6 of 0.5 cm. Facets align normally, suggesting that the anterolisthesis is due to degenerative change. Advanced facet arthropathy is noted, left worse than right at C3-4 and C4-5. Uncovertebral joint hypertrophy is alsoidentified. No acute fracture is identified. The lung apices are clear. Debris is noted within the upper thoracic esophagus. IMPRESSION: 1. No acute osseous abnormality the cervical spine. 2. Dextro curvature with grade 1 anterolisthesis of C3-4 and C4-5, grade2 C5 on C6 which appears degenerative. 3. Uncovertebral joint and facet arthropathy. 4. Degenerative pannus formation at the craniocervical junction.Congenital nonunion anterior arch of C1. 5. Dense left carotid arterial calcification. THIS IS AN ELECTRONICALLY VERIFIED REPORT 04/09/2016 10:49 AM: Emanuel Orozco M.D. Emanuel Orozco M.D. CH: 10:49 AM 10:[address] [facility] [EOD] us Kenyatta Stanley SUPERVISOR INSTRUMENT MAINTENANCE IMG CT PROCEDURES Final Result * XR Hand Right 3 or More Views (04/09/2016 12:00 AM CDT) Anatomical Region Laterality Modality Upper Extremities, Hand Right Radiogra phic Imaging 04/09/2016 Impressions 04/09/2016 1:41 PM CDT Possible nondisplaced fracture of the distal fourth metacarpal. ??Soft tissue swelling. Correlate for focal pain. Severe osteoarthritis throughout. THIS IS AN ELECTRONICALLY VERIFIED REPORT 04/09/2016 1:37 PM: ??Bryce Akers M.D. ?? Bryce Akers M.D. DS:ds 01:37 PM 01:[address] [facility] [EOD] Narrative 04/09/2016 1:41 PM CDT EXAMINATION: ??Three-view right hand HISTORY: ??Fall, just after midnight, swelling over the posterior surface TECHNIQUE: ??PA, lateral, and oblique views of the right hand COMPARISON: ??None FINDINGS: Diffuse osteoarthritis of the joints. ??Asymmetric joint space loss and osteophytes throughout. ??Calcification of the cartilage. ??Lucency through the distal fourth metacarpal on the oblique image without displacement. ??May represent a small nondisplaced fracture. Procedure Note Provider, MD Js - 03/14/2021 EXAMINATION: Three-view right hand HISTORY: Fall, just after midnight, swelling over the posterior surface TECHNIQUE: PA, lateral, and oblique views of the right hand COMPARISON: None FINDINGS: Diffuse osteoarthritis of the joints. Asymmetric joint space loss and osteophytes throughout. Calcification of the cartilage. Lucency throughthe distal fourth metacarpal on the oblique image without displacement. May represent a small nondisplaced fracture. IMPRESSION: Possible nondisplaced fracture of the distal fourth metacarpal. Softtissue swelling. Correlate for focal pain. Severe osteoarthritis throughout. THIS IS AN ELECTRONICALLY VERIFIED REPORT 04/09/2016 1:37 PM: Bryce Akers M.D. Bryce Akers M.D. DS:tatiana 01:37 PM 01:[address] [facility] [EOD] Kenyatta Stanley SUPERVISOR INSTRUMENT MAINTENANCE IMG XR PROCEDURES Final Result documented in this encounter Visit Diagnoses Diagnosis Acute kidney failure with tubular necrosis (CMS/HCC) (HCC) Crohn's disease without complication (CMS/HCC) (HCC) Ulcer of esophagus with bleeding Gastrointestinal hemorrhage Unspecified, hemorrhage of gastrointestinal tract Acidosis Ulcer of anus and rectum Subluxation of right middle finger Hypotension Unspecified hypotension Hearing loss Unspecified hearing loss Atherosclerotic heart disease of [place] coronary artery without angina pectoris Hyperlipidemia Other and unspecified hyperlipidemia Hypertensive chronic kidney disease with stage 1 through stage 4 chronic kidney disease, or unspecified chronic kidney disease Chronic kidney disease, stage III (moderate) (HCC) Chronic kidney disease, Stage III (moderate) Chronic obstructive pulmonary disease (HCC) Peripheral vascular disease (HCC) Unspecified peripheral vascular disease Gastro-esophageal reflux disease without esophagitis Primary osteoarthritis of right hand Primary osteoarthritis of left hand Hypothyroidism Unspecified hypothyroidism Partial loss of tooth Diaphragmatic hernia without obstruction or gangrene Diaphragmatic hernia without mention of obstruction or gangrene Diverticulosis of large intestine without perforation or abscess without bleeding Dysphagia Hypokalemia Hypopotassemia Fall Unspecified fall Unspecified place or not applicable Allergy to milk products Allergy to other foods intermediate card tender current use of antithrombotics/antiplatelets intermediate card tender current use of aspirin intermediate card tender current use of inhaled steroid Other intermission coordinator (current) drug therapy Acquired absence of other specified parts of digestive tract Presence of coronary angioplasty implant and graft Body mass index (BMI) of 21.0-21.9 in adult documented in this encounter
--- OUTSIDE RECORDS SUMMARY | 2024-10-27 10:57 | XMS_ITS | Encounter Summary ---
Author Organization [facility] Care Team Providers Care Energy Project Manager Name Role Phone Nickie Negron MD Primary Care Provider [phone] Encounter Details Date Type Department Care Team (Latest Contact Info) Description 11/19/2017 Orders Only [facility]INCONV ProviderJs MD [address] [place] [id number] Social History Tobacco Use Types Packs/Day Years Used Date Smoking Tobacco: Former Sex and Gender Information Value Date Recorded Sex Assigned at Not on file Legal Sex Male 5:49 AM AND [employer] Gender Identity Not on file Sexual Orientation Not on file documented as of this encounter Plan of Treatment Not on file documented as of this encounter Procedures Procedure Name Priority Date/Time Associated Diagnosis Comments SCAN - LABS 01/09/2018 12:00 AM CDT documented in this encounter Results * SCAN - LABS (01/09/2018 12:00 AM CDT) Narrative 01/09/2018 12:00 AM CDT Ordered by an unspecified provider. us Historical Provider Final Res ult documented in this encounter Visit Diagnoses Not on filedocumented in this encounter Care Teams Energy Project Manager Relationship Specialty Start Date End Date Nickie Negron MD [address] [place] [address] PCP - General 01/13/19 documented as of this encounter
--- OUTSIDE RECORDS SUMMARY | 2024-10-27 10:57 | XMS_ITS | Encounter Summary ---
Author Organization [facility] Healthcare Address [address] [place] [address] Care Team Providers Care Platform Operations Director Name Role Phone Unavailable Primary Care Provider Unavailabl e Encounter Details Date Type Department Care Team (Latest Contact Info) Description 10/06/2016 10:21 AM HALL TENDER Hospital Encounter [facility] Shree Basilio MD [address] [facility] [address] [address] Hypokalemia; Chronic kidney disease, stage III (moderate) Social History Tobacco Use Types Packs/Day Years Used Date Smoking Tobacco: Former Sex and Gender Information Value Date Recorded Sex Assigned at Not on file Legal Sex Male 5:49 AM HALL TENDER Gender Identity Not on file Sexual Orientation Not on file documented as of this encounter Plan of Treatment Not on file documented as of this encounter Procedures Procedure Name Priority Date/Time Associated Diagnosis Comments BASIC METABOLIC PANEL Routine 10/06/2016 10:32 AM HALL TENDER documented in this encounter Results * (ABNORMAL) Basic metabolic panel (10/06/2016 10:32 AM HALL TENDER) Sodium 144 135 - 145 mmol/L 10/06/2016 11:22 AM HALL TENDER [facility] HISTORICAL RESULTS Potassium 3.1(L) 3.3 - 5.1 mmol/L Chloride 109(H) 96 - 108 mmol/L Carbon Dioxide 21(L) 22 - 32 mmol/L 10/06/2016 11:22 AM [employer] HISTORICAL RESULTS Anion Gap 14 7 - 16 10/06/2016 11:22 AM [employer] HISTORICAL RESULTS Glucose 101(H) 70 - 100 mg/dL 10/06/2016 11:22 AM [employer] [facility] [employer] HISTORICAL RESULTS BUN 15 8 - 23 mg/dL 10/06/2016 11:22 AM [employer] [facility] [employer] HISTORICAL RESULTS Creatinine 1.4(H) 0.5 - 1.3 mg/dL 10/06/2016 11:22 AM [employer] HISTORICAL RESULTS Comment: NOTE: Estimated GFR (Cockroft-Gault) will NOT be calculated unless patient Height and Weight were entered. Also, Kidney Disease Stage (GFR) and Estimated GFR (C[place]roft-Gault) will NOT be calculated if Creatinine result is <0.2. Kidney Disease Stage 54 mL/MIN 10/06/2016 11:22 AM [employer] HISTORICAL RESULTS Comment: NOTE; ??The GFR is [...] ? Kidney failure or on dialysis @ Calcium 8.5(L) 8.8 - 10.2 mg/dL 10/06/2016 11:22 AM [employer] HISTORICAL RESULTS 10/06/2016 10:3 2 AM HALL TENDER 10/06/2016 10:50 AM HALL TENDER us Shree Gutiérrez MD LAB BLOOD ORDERABLES Final Re sult [facility] HISTORICAL RESULTS documented in this encounter Visit Diagnoses Diagnosis Hypokalemia Hypopotassemia Chronic kidney disease, stage III (moderate) (HCC) Chronic kidney disease, Stage III (moderate) documented in this encounter
--- OUTSIDE RECORDS SUMMARY | 2024-10-27 10:57 | XMS_ITS | Encounter Summary ---
Author Organization [facility] Healthcare Address [address] [place] [address] Care Team Providers Care Electrical Installer Name Role Phone Unavailable Primary Care Provider Unavailabl e Encounter Details Date Type Department Care Team (Latest Contact Info) Description 11/20/2016 3:17 AM MOBILE APPLICATION ENGINEER - 11/23/2016 12:10 PM MOBILE APPLICATION ENGINEER Hospital Encounter 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; Hyperlipidemia; Hypertensive chronic kidney disease with stage 1 through stage 4 chronic kidney disease, or unspecified chronic kidney disease; Chronic kidney disease, stage III (moderate); Peripheral vascular disease (CMS/HCC); Chronic obstructive pulmonary disease (CMS/HCC); Gastro-esophageal reflux disease without esophagitis; Primary osteoarthritis of right hand; Primary osteoarthritis of left hand; Hypothyroidism; Lactose intolerance; Diarrhea; Adverse effect of angiotensin-converting enzyme inhibitor; Hypokalemia; Fall; Bathroom of non-institutional residence single-family house as the place of occurrence of the external cause; Allergy to other foods; nursing home current use of aspirin; 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; 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?C (98 ??F) 11/20/2016 4:10 PM MOBILE APPLICATION ENGINEER Respiratory Rate - - Oxygen Saturation 95% 11/20/2016 4:10 PM MOBILE APPLICATION ENGINEER Inhaled Oxygen Concentration - - Weight 55.7 kg (122 lb 11.2 oz) 11/20/2016 4:10 PM MOBILE APPLICATION ENGINEER Height 162.6 cm (5' 4 ) 11/20/2016 4:10 PM MOBILE APPLICATION ENGINEER Body Mass Index 21.06 11/20/2016 4:10 PM MOBILE APPLICATION ENGINEER documented in this encounter Medications at Time of Discharge denosumab (Prolia) 60 mg/mL syringe Inject 1 mL by subcutaneous route as directed for 180 days. 11/20/2016 2 documented as of this encounter Plan of Treatment Not on file documented as of this encounter Procedures Procedure Name Priority Date/Time Associated Diagnosis Comments PHOSPHORUS Routine 11/23/2016 6:23 AM MOBILE APPLICATION ENGINEER MAGNESIUM Routine 11/23/2016 6:23 AM MOBILE APPLICATION ENGINEER BASIC METABOLIC PANEL Routine 11/23/2016 6:23 AM MOBILE APPLICATION ENGINEER POTASSIUM LEVEL Routine 11/22/2016 4:47 PM MOBILE APPLICATION ENGINEER PROCALCITONIN POST-ANTIBIOTIC Routine 11/22/2016 4:56 AM MOBILE APPLICATION ENGINEER BASIC METABOLIC PANEL Routine 11/22/2016 4:56 AM MOBILE APPLICATION ENGINEER OXYGEN SATURATION, ARTERIAL Routine 11/21/2016 10:47 AM MOBILE APPLICATION ENGINEER URINALYSIS AND REFLEX TO MICROSCOPIC AND CULTURE Routine 11/21/2016 9:45 AM MOBILE APPLICATION ENGINEER THYROID PANEL Routine 11/21/2016 5:27 AM MOBILE APPLICATION ENGINEER CALCIUM, IONIZED Routine 11/21/2016 5:27 AM MOBILE APPLICATION ENGINEER CBC WITH AUTO DIFFERENTIAL Routine 11/21/2016 5:27 AM MOBILE APPLICATION ENGINEER PHOSPHORUS Routine 11/21/2016 5:27 AM MOBILE APPLICATION ENGINEER MAGNESIUM Routine 11/21/2016 5:27 AM MOBILE APPLICATION ENGINEER COMPREHENSIVE METABOLIC PANEL Routine 11/21/2016 5:27 AM MOBILE APPLICATION ENGINEER VRE CULTURE, SURVEILLANCE Routine 11/20/2016 1:30 PM MOBILE APPLICATION ENGINEER CLOSTRIDIUM DIFFICILE ASSAY Routine 11/20/2016 1:30 PM MOBILE APPLICATION ENGINEER PHOSPHORUS Routine 11/20/2016 5:03 AM MOBILE APPLICATION ENGINEER MAGNESIUM Routine 11/20/2016 5:03 AM MOBILE APPLICATION ENGINEER FERRITIN Routine 11/20/2016 5:03 AM MOBILE APPLICATION ENGINEER CREATINE KINASE (CK), TOTAL Routine 11/20/2016 5:03 AM MOBILE APPLICATION ENGINEER BASIC METABOLIC PANEL Routine 11/20/2016 5:03 AM MOBILE APPLICATION ENGINEER MICROBIOLOGY SPECIMEN REPORT (CONVERTED) Routine 11/20/2016 12:46 AM MOBILE APPLICATION ENGINEER MICROBIOLOGY SPECIMEN REPORT (CONVERTED) Routine 11/20/2016 12:31 AM MOBILE APPLICATION ENGINEER PROCALCITONIN PRE-ANTIBIOTIC Routine 11/20/2016 12:31 AM MOBILE APPLICATION ENGINEER LACTATE Routine 11/20/2016 12:31 AM MOBILE APPLICATION ENGINEER CBC WITH AUTO DIFFERENTIAL Routine 11/20/2016 12:31 AM MOBILE APPLICATION ENGINEER APTT Routine 11/20/2016 12:31 AM MOBILE APPLICATION ENGINEER PROTIME-INR Routine 11/20/2016 12:31 AM MOBILE APPLICATION ENGINEER LIPASE Routine 11/20/2016 12:31 AM MOBILE APPLICATION ENGINEER AMYLASE Routine 11/20/2016 12:31 AM MOBILE APPLICATION ENGINEER COMPREHENSIVE METABOLIC PANEL Routine 11/20/2016 12:31 AM MOBILE APPLICATION ENGINEER US KIDNEY COMPLETE Routine 11/20/2016 12 :00 AM MOBILE APPLICATION ENGINEER XR CHEST 1 VIEW Routine 11/20/2016 12:00 AM MOBILE APPLICATION ENGINEER documented in this encounter Results * Phosphorus (11/23/2016 6:23 AM MOBILE APPLICATION ENGINEER) Phosphorus 2.6 2.5 - 4.5 mg/dL 11/23/2016 7:28 AM MOBILE APPLICATION ENGINEER [facility] HISTORICAL RESULTS 11/23/2016 6:23 AM MOBILE APPLICATION ENGINEER 11/23/2016 6:48 AM MOBILE APPLICATION ENGINEER Shree Gutiérrez MD LAB BLOOD ORDERABLES Final Re sult Performing Organization Address [facility]/ZIP Co de Phone Number [facility] HISTORICAL RESULTS * Magnesium (11/23/2016 6:23 AM MOBILE APPLICATION ENGINEER) Magnesium 1.6 1.6 - 2.6 mg/dL Comment:Magnesium sulfate th erapy: 3.0-9.1 mg/dL 11/23/2016 6:23 AM MOBILE APPLICATION ENGINEER 11/23/2016 6:48 AM MOBILE APPLICATION ENGINEER Shree Gutiérrez MD LAB BLOOD ORDERABLES Final Re sult [facility] HISTORICAL RESULTS * (ABNORMAL) Basic metabolic panel (11/23/2016 6:23 AM MOBILE APPLICATION ENGINEER) Sodium 141 135 - 145 mmol/L 11/23/2016 7:15 AM MOBILE APPLICATION ENGINEER [facility] HISTORICAL RESULTS Potassium 3.3 3.3 - 5.1 mmol/L 11/23/2016 7:15 AM MOBILE APPLICATION ENGINEER [facility] HISTORICAL RESULTS Chloride 106 96 - 108 mmol/L Carbon Dioxide 25 22 - 32 mmol/L Anion Gap 10 7 - 16 Glucose 97 70 - 100 mg/dL BUN 18 8 - 23 mg/dL Creatinine 1.8(H) 0.5 - 1.3 mg/dL Comment: NOTE: Estimated GFR (Cockroft-Gault) will NOT be calculated unless patient Height and Weight were entered. Also, Kidney Disease Stage (GFR) and Estimated GFR (Cockroft-Gault) will NOT be calculated if Creatinine result is <0.2. Kidney Disease Stage 40 mL/MIN 11/23/2016 7:15 AM [employer] [facility] HISTORICAL RESULTS Comment: NOTE; ??The GFR is [...] or on dialysis @ Est GFR (Cockcroft-G) 31 ml/MIN 11/23/2016 7:[address] [facility] HISTORICAL RESULTS Comment: Estimated GFR(Cockroft-Gault)is used to calculate patient medication dosage Calcium 7.4(L) 8.8 - 10.2 mg/dL 11/23/2016 6:23 AM MOBILE APPLICATION ENGINEER 11/23/2016 6:48 AM MOBILE APPLICATION ENGINEER Piter Varner MD LAB BLOOD ORDERABLES Final Result [facility] HISTORICAL RESULTS * Potassium (11/22/2016 4:47 PM MOBILE APPLICATION ENGINEER) Potassium 3.3 3.3 - 5.1 mmol/L 11/22/2016 4:47 PM MOBILE APPLICATION ENGINEER 11/22/2016 5:10 PM MOBILE APPLICATION ENGINEER Narrative [facility] HISTORICAL RESULTS - 11/22/2016 5:37 PM MOBILE APPLICATION ENGINEER Roxanne Paiz APRN LAB BLOOD ORDERABLES Fi nal Result [facility] HISTORICAL RESULTS * (ABNORMAL) Basic metabolic panel (11/22/2016 4:56 AM MOBILE APPLICATION ENGINEER) Pathologist [facility] Sodium 137 135 - 145 mmol/L Potassium 2.8(L) 3.3 - 5.1 mmol/L Chloride 105 96 - 108 mmol/L Carbon Dioxide 20(L) 22 - 32 mmol/L Anion Gap 12 7 - 16 Glucose 97 70 - 100 mg/dL BUN 31(H) 8 - 23 mg/dL Creatinine 2.4(H) 0.5 - 1.3 mg/dL Comment: NOTE: Estimated GFR (Cockroft-Gault) will NOT be calculated unless patient Height and Weight were entered. Also, Kidney Disease Stage (GFR) and Estimated GFR (Cockroft-Gault) will NOT be calculated if Creatinine result is <0.2. Kidney Disease Stage 29 mL/MIN Comment: NOTE; ??The GFR is an [...] or on dialysis @ Est GFR (Cockcroft-G) 24 ml/MIN Comment: Estimated GFR(Cockroft-Gault)is used to calculate patient medication dosage Calcium 7.3(L) 8.8 - 10.2 mg/dL 11/22/2016 4:56 AM MOBILE APPLICATION ENGINEER 11/22/2016 5:16 AM MOBILE APPLICATION ENGINEER us Piter Varner MD LAB BLOOD ORDERABLES Final Result [facility] HISTORICAL RESULTS * PROCALCITONIN Post-antibiotic (11/22/2016 4:56 AM MOBILE APPLICATION ENGINEER) PROCALCITONIN Post-antibiotic 0.12 0 - 0.24 ng/mL Comment: Guidelines for use with Community Acquired Pneumonia(CAP)-ONLY: ?? <0.1 ng/mL or decrease by >90% from initial: ?Cessation of antibiotics is STRONGLY encouraged ?? 0.1-0.24 ng/mL or decrease by >80% from initial: ?Cessation of antibiotics is encouraged ?? 0.25-0.5 ng/mL: Cessation of antibiotics is discouraged ?? >0.5 ng/mL: Cessation of antibiotics is STRONGLY discouraged 11/22/2016 4:56 AM MOBILE APPLICATION ENGINEER 11/22/2016 5:16 AM MOBILE APPLICATION ENGINEER us Esthela Lucia MD LAB BLOOD ORDERABLES Shruthi l Result Performing Organization Address [facility] de Phone Number [facility] HISTORICAL RESULTS * (ABNORMAL) Oxygen saturation, arterial (11/21/2016 10:47 AM MOBILE APPLICATION ENGINEER) Specimen Type Oximeter 11/21/2016 11:[address] [facility] [employer] [facility] HISTORICAL RESULTS Puncture Site FINGER O2 Sat Pulse Oximetry 99.0(H) 90.0 - 95 % 11/21/2016 11:[address] [facility] HISTORICAL RESULTS FiO2 21.0 % BG Specimen Comment [id number] Crab Picker ID [email or web address] 11/21/2016 10:4 7 AM MOBILE APPLICATION ENGINEER 11/21/2016 10:48 AM MOBILE APPLICATION ENGINEER us George Mccall MD LAB BLOOD ORDERABLES Final Res ult Performing Organization Address [facility]/ZIP Co de Phone Number [facility] HISTORICAL RESULTS * (ABNORMAL) Urinalysis reflex to microscopic and culture (11/21/2016 9:45 AM [facility]) Ur Collection Type INDWELLING CATH Ur Culture Indicated? C&S NOT INDICATED Urine Color RED YELLOW Urine Clarity Slightly-Clou dy CLEAR Urine Glucose (UA) NORMAL NORMAL mg/dL Urine Bilirubin NEGATIVE NEGATIVE mg/dl Urine Ketones NEGATIVE NEGATIVE mg/dL Ur Specific [place] 1.008 1.005 - 1.025 Urine Blood >=1.0 NEGATIVE mg/dl Urine pH 6.0 5.0 - 8.0 Urine Protein 100(H) NEGATIVE mg/dL Urine Urobilinogen NORMAL NORMAL mg/dL Urine Nitrite NEGATIVE NEGATIVE Ur Leukocyte Esterase NEGATIVE NEGATIVE Al/ul Ur Microscopic Review Indicated or Ordered Urine RBC 2163 0 - 2 /HPF Urine WBC 1 0 - 2 /HPF 11/21/2016 9:45 AM [facility] 11/21/2016 9:50 AM [facility] Narrative [facility] HISTORICAL RESULTS - 11/21/2016 9:59 AM MOBILE APPLICATION ENGINEER Esthela Lucia MD LAB MICROBIOLOGY - GENERA L ORDERABLES Final Result Performing Organization Address [facility]/ZIP Co de Phone Number [facility] HISTORICAL RESULTS * Phosphorus (11/21/2016 5:27 AM MOBILE APPLICATION ENGINEER) Phosphorus 4.0 2.5 - 4.5 mg/dL 11/21/2016 5:27 AM MOBILE APPLICATION ENGINEER 11/21/2016 5:54 AM MOBILE APPLICATION ENGINEER Shree Gutiérrez MD LAB BLOOD ORDERABLES Final Re sult Performing Organization Address [facility] Co de Phone Number [facility] HISTORICAL RESULTS * Magnesium (11/21/2016 5:27 AM MOBILE APPLICATION ENGINEER) Pathologist [facility] Magnesium 1.9 1.6 - 2.6 mg/dL Comment:Magnesium sulfate th erapy: 3.0-9.1 mg/dL 11/21/2016 5:27 AM MOBILE APPLICATION ENGINEER 11/21/2016 5:54 AM MOBILE APPLICATION ENGINEER Shree Gutiérrez MD LAB BLOOD ORDERABLES Final Re sult Performing Organization Address [facility] de Phone Number [facility] HISTORICAL RESULTS * (ABNORMAL) Comprehensive metabolic panel (11/21/2016 5:27 AM MOBILE APPLICATION ENGINEER) Pathologist [facility] Sodium 136 135 - 145 mmol/L Potassium 3.4 3.3 - 5.1 mmol/L Chloride 107 96 - 108 mmol/L Carbon Dioxide 15(L) 22 - 32 mmol/L Anion Gap 14 7 - 16 Glucose 89 70 - 100 mg/dL 11/21/2016 6:24 AM [employer] [facility] [facility] HISTORICAL RESULTS BUN 45(H) 8 - 23 mg/dL 11/21/2016 6:24 AM [employer] [facility] [employer] HISTORICAL RESULTS Creatinine 4.3(H) 0.5 - 1.3 mg/dL 11/21/2016 6:24 AM [employer] HISTORICAL RESULTS Comment: NOTE: Estimated GFR (Cockroft-Gault) will NOT be calculated unless patient Height and Weight were entered. Also, Kidney Disease Stage (GFR) and Estimated GFR (Cockroft-Gault) will NOT be calculated if Creatinine result is <0.2. Kidney Disease Stage 15 mL/MIN 11/21/2016 6:24 AM [employer] HISTORICAL RESULTS Comment: NOTE; ??The GFR is [...] dialysis @ Est GFR (Cockcroft-G) 13 ml/MIN 11/21/2016 6:24 AM [employer] HISTORICAL RESULTS Comment: Estimated GFR(Cockroft-Gault)is used to calculate patient medication dosage Calcium 7.3(L) 8.8 - 10.2 mg/dL 11/21/2016 6:24 AM [employer] HISTORICAL RESULTS Total Protein 5.1(L) 6.4 - 8.3 g/dL Albumin 2.9(L) 3.5 - 5.2 g/dL Globulin 2.2(L) 2.3 - 3.5 gm/dL Albumin/Globulin Ratio 1.3 1.1 - 1.8 11/21/2016 6:24 AM MOBILE APPLICATION ENGINEER [facility] HISTORICAL RESULTS Total Bilirubin 0.3 0.0 - 1.2 mg/dL AST 13 0 - 40 U/L ALT 12 0 - 41 U/L Alkaline Phosphatase 60 40 - 129 U/L 11/21/2016 5:27 AM MOBILE APPLICATION ENGINEER 11/21/2016 5:54 AM [facility] us Shree Gutiérrez MD LAB BLOOD ORDERABLES Final Re sult [facility] HISTORICAL RESULTS * (ABNORMAL) CBC with auto differential (11/21/2016 5:27 AM MOBILE APPLICATION ENGINEER) WBC 4.0(L) 4.6 - 10.2 x10 3/ul Comment:Results reviewed RBC 3.22(L) 4.11 - 5.71 x10 6/ul Comment:Results reviewed Hemoglobin 9.5(L) 13.0 - 17.0 g/dl Comment:Results reviewed Hct 28.1(L) 38.2 - 48.5 % MCV 87.3 80.0 - 97.0 fl MCH 29.5 27.0 - 31.2 pg 11/21/2016 6:04 AM [employer] [facility] [employer] HISTORICAL RESULTS MCHC 33.8 31.8 - 35.4 g/dl 11/21/2016 6:04 AM [employer] [facility] [employer] [facility] [facility] HISTORICAL RESULTS RDW 14.6 11.6 - 14.8 % 11/21/2016 6:04 AM [employer] [facility] [employer] HISTORICAL RESULTS Plt Count 127 124 - 400 x10 3/ul 11/21/2016 6:04 AM MOBILE APPLICATION ENGINEER [facility] [employer] [facility] HISTORICAL RESULTS MPV 11.5(H) 7.4 - 10.4 fl 11/21/2016 6:04 AM [employer] [facility] [employer] HISTORICAL RESULTS Neut % 52.6 37.0 - 85.0 % 11/21/2016 6:04 AM [employer] [facility] [employer] [facility] [employer] HISTORICAL RESULTS Immature Gran % 0.5 0.0 - 3.0 % 11/21/2016 6:04 AM [employer] [facility] [employer] [facility] [employer] HISTORICAL RESULTS Lymph % 38.3 5.0 - 45.0 % 11/21/2016 6:04 AM [employer] [facility] [employer] HISTORICAL RESULTS [place] % 7.8 3.0 - 15.0 % 11/21/2016 6:04 AM [employer] [facility] [employer] [facility] [employer] HISTORICAL RESULTS Eos % 0.5 0.0 - 7.0 % 11/21/2016 6:04 AM [employer] [facility] [employer] [facility] [employer] HISTORICAL RESULTS Baso % 0.3 0.0 - 2.0 % 11/21/2016 6:04 AM [employer] [facility] [employer] [facility] [employer] HISTORICAL RESULTS Absolute Neuts (auto) 2.1 1.7 - 8.7 x10 3/ul 11/21/2016 6:04 AM [employer] [facility] [employer] HISTORICAL RESULTS Immature Gran # 0.0 0.0 - 0.3 x10 3/ul 11/21/2016 6:04 AM [employer] [facility] [employer] HISTORICAL RESULTS Absolute Lymphs (auto) 1.5 0.2 - 4.6 x10 3/ul 11/21/2016 6:04 AM [employer] [facility] [employer] [facility] HISTORICAL RESULTS Absolute Monos (auto) 0.3 0.1 - 1.5 x10 3/ul 11/21/2016 6:04 AM [employer] [facility] [employer] HISTORICAL RESULTS Absolute Eos (auto) 0.0 0.0 - 0.7 x10 3/ul 11/21/2016 6:04 AM [employer] [facility] HISTORICAL RESULTS Absolute Basos (auto) 0.0 0.0 - 0.2 x10 3/ul 11/21/2016 5:27 AM MOBILE APPLICATION ENGINEER 11/21/2016 5:54 AM MOBILE APPLICATION ENGINEER Shree Gutiérrez MD LAB BLOOD ORDERABLES Final Re sult Performing Organization Address [facility] de Phone Number [facility] HISTORICAL RESULTS * Calcium, ionized (11/21/2016 5:27 AM MOBILE APPLICATION ENGINEER) Ionized Calcium 4.8 4.5 - 5.3 mg/dL 11/21/2016 5:27 AM MOBILE APPLICATION ENGINEER 11/21/2016 5:54 AM MOBILE APPLICATION ENGINEER Shree Gutiérrez MD LAB BLOOD ORDERABLES Final Re sult Performing Organization Address [facility] de Phone Number [facility] HISTORICAL RESULTS * (ABNORMAL) Thyroid Panel (11/21/2016 5:27 AM MOBILE APPLICATION ENGINEER) Pathologist [facility] TSH 17.27(H) 0.27 - 4.20 uIU/mL Free T4 0.81(L) 0.93 - 1.70 ng/dL 11/21/2016 5:27 AM MOBILE APPLICATION ENGINEER 11/21/2016 5:54 AM MOBILE APPLICATION ENGINEER Eve Rincon LAB BLOOD ORDERABLES Final Re sult Performing Organization Address [facility] de Phone Number [facility] HISTORICAL RESULTS * VRE culture, surveillance (11/20/2016 1:30 PM MOBILE APPLICATION ENGINEER) VRE Surveillance Screen NEGATIVE NEGATIVE 11/20/2016 1:30 PM MOBILE APPLICATION ENGINEER 11/20/2016 1:56 PM MOBILE APPLICATION ENGINEER Narrative [facility] HISTORICAL RESULTS - 11/22/2016 7:43 AM MOBILE APPLICATION ENGINEER Collected By VB ?? Eve Rincon LAB MICROBIOLOGY - GENERAL OR DERABLES Final Result Performing Organization Address [facility] de Phone Number [facility] HISTORICAL RESULTS * Clostridium difficile assay (11/20/2016 1:30 PM MOBILE APPLICATION ENGINEER) C, difficile (LAMP) NEGATIVE NEGATIVE 11/20/2016 3:07 PM MOBILE APPLICATION ENGINEER [facility] HISTORICAL RESULTS Comment: Negative test: C. difficile molecular tests are highly sensitive. Empiric therapy for patients with diarrhea and negative C. difficile test should be avoided. Submission of more than one specimen within 7 days is not recommended. Molecular tests for C. difficile are highly sensitive and a negative result does not need to be confirmed by a second specimen. 11/20/2016 1:30 PM MOBILE APPLICATION ENGINEER 11/20/2016 1:56 PM MOBILE APPLICATION ENGINEER Narrative [facility] HISTORICAL RESULTS - 11/20/2016 3:07 PM MOBILE APPLICATION ENGINEER Collected By VB ?? Eve Rincon [facility] MICROBIOLOGY - GENERAL OR DERABLES Final Result Performing Organization Address [facility] Phone Number [facility] HISTORICAL RESULTS * Creatine kinase (CK), total (11/20/2016 5:03 AM MOBILE APPLICATION ENGINEER) Creatine Kinase 92 20 - 200 U/L 11/20/2016 8:46 AM MOBILE APPLICATION ENGINEER [facility] HISTORICAL RESULTS 11/20/2016 5:03 AM MOBILE APPLICATION ENGINEER 11/20/2016 5:28 AM MOBILE APPLICATION ENGINEER George Mccall MD LAB BLOOD ORDERABLES Final Res ult Performing Organization Address [facility] Co de Phone Number [facility] HISTORICAL RESULTS * (ABNORMAL) Phosphorus (11/20/2016 5:03 AM MOBILE APPLICATION ENGINEER) Phosphorus 5.6(H) 2.5 - 4.5 mg/dL 11/20/2016 5:57 AM MOBILE APPLICATION ENGINEER [facility] HISTORICAL RESULTS 11/20/2016 5:03 AM MOBILE APPLICATION ENGINEER 11/20/2016 5:28 AM MOBILE APPLICATION ENGINEER us George Mccall MD LAB BLOOD ORDERABLES Final Res ult [facility] HISTORICAL RESULTS * Magnesium (11/20/2016 5:03 AM MOBILE APPLICATION ENGINEER) Magnesium 2.1 1.6 - 2.6 mg/dL Comment:Magnesium sulfate th erapy: 3.0-9.1 mg/dL 11/20/2016 5:03 AM MOBILE APPLICATION ENGINEER 11/20/2016 5:28 AM MOBILE APPLICATION ENGINEER us George Mccall MD LAB BLOOD ORDERABLES Final Res ult Performing Organization Address [facility] Co de Phone Number [facility] HISTORICAL RESULTS * (ABNORMAL) Basic metabolic panel (11/20/2016 5:03 AM MOBILE APPLICATION ENGINEER) Sodium 139 135 - 145 mmol/L Potassium 4.0 3.3 - 5.1 mmol/L Chloride 108 96 - 108 mmol/L Carbon Dioxide 10(L) 22 - 32 mmol/L Anion Gap 21(H) 7 - 16 Glucose 112(H) 70 - 100 mg/dL BUN 57(H) 8 - 23 mg/dL Creatinine 6.5(H) 0.5 - 1.3 mg/dL Comment: NOTE: Estimated [...] dialysis @ Est GFR (Cockcroft-G) 9 ml/MIN Comment: Estimated GFR(Cockroft-Gault)is used to calculate patient medication dosage Calcium 7.7(L) 8.8 - 10.2 mg/dL 11/20/2016 5:57 AM MOBILE APPLICATION ENGINEER [facility] HISTORICAL RESULTS 11/20/2016 5:03 AM MOBILE APPLICATION ENGINEER 11/20/2016 5:28 AM MOBILE APPLICATION ENGINEER George Mccall MD LAB BLOOD ORDERABLES Final Res ult [facility] HISTORICAL RESULTS * (ABNORMAL) Ferritin (11/20/2016 5:03 AM MOBILE APPLICATION ENGINEER) Ferritin 432.0(H) 30.0 - 400.0 ng/mL 11/20/2016 6:05 AM MOBILE APPLICATION ENGINEER [facility] [employer] HISTORICAL RESULTS 11/20/2016 5:03 AM MOBILE APPLICATION ENGINEER 11/20/2016 5:28 AM MOBILE APPLICATION ENGINEER George Mccall MD LAB BLOOD ORDERABLES Final Res ult [facility] HISTORICAL RESULTS * Microbiology Specimen Report (Converted) (11/20/2016 12:46 AM MOBILE APPLICATION ENGINEER) 11/20/2016 12:4 6 AM MOBILE APPLICATION ENGINEER 11/20/2016 1:00 AM MOBILE APPLICATION ENGINEER Narrative [facility] [employer] HISTORICAL RESULTS - 11/20/2016 12:46 AM MOBILE APPLICATION ENGINEER Microbiology Specimen Report (Converted) SPECIMEN [id number] ?? COLLECTED: 2016-11-20 00:46:00 SK ?? REQ#: [id number] REQUESTING DR: Esthela Lucia MD ?? SOURCE: BLOOD ?? SP DESC: COMMENT: MLS DRAWN: 40 ? ANATOMIC SITE: RAC ?? --- PROCEDURE --- ?--- RESULT --- ?? CULTURE BLOOD ADULT (SET OF 2) ??(Final) ??- ??Performed at [facility] ?* NO GROWTH DAY 5 - [facility] ? [address] [place] [address] ? [place] [address] ? Bryce Palmer MD Procedure Note 01/17/2019 Microbiology Specimen Report (Converted) SPECIMEN [id number] COLLECTED: 2016-11-20 00:46:00 SK REQ#:[id number] REQUESTING DR: Esthela Lucia MD SOURCE: BLOOD SP DESC: COMMENT: MLS DRAWN: 40 ANATOMIC SITE: RAC --- PROCEDURE --- --- RESULT --- CULTURE BLOOD ADULT (SET OF 2) (Final) - Performed at [facility] * NO GROWTH DAY 5 - [facility] [address] [place] [address] Bryce Palmer MD us Esthela Lucia MD LAB BLOOD ORDERABLES Shruthi ngoc Result [facility] HISTORICAL RESULTS * Microbiology Specimen Report (Converted) (11/20/2016 12:31 AM MOBILE APPLICATION ENGINEER) 11/20/2016 12:3 1 AM MOBILE APPLICATION ENGINEER 11/20/2016 1:00 AM MOBILE APPLICATION ENGINEER Narrative [facility] HISTORICAL RESULTS - 11/20/2016 12:31 AM MOBILE APPLICATION ENGINEER Microbiology Specimen Report (Converted) SPECIMEN [id number] ?? COLLECTED: 2016-11-20 00:31:00 SK ?? REQ#: [id number] REQUESTING DR: Esthela Lucia MD ?? SOURCE: BLOOD ?? SP DESC: COMMENT: MLS DRAWN: 40 ? ANATOMIC SITE: LAC ?? --- PROCEDURE --- ?--- RESULT --- ?? CULTURE BLOOD ADULT (SET OF 2) ??(Final) ??- ??Performed at [facility] ?* NO GROWTH DAY 5 - [facility] ? [address] [facility] ? [place] [address] ? Bryce Palmer MD Procedure Note 01/17/2019 Microbiology Specimen Report (Converted) SPECIMEN [id number] COLLECTED: 2016-11-20 00:31:00 SK REQ#:[id number] REQUESTING DR: Esthela Lucia MD SOURCE: BLOOD SP DESC: COMMENT: MLS DRAWN: 40 ANATOMIC SITE: LAC --- PROCEDURE --- --- RESULT --- CULTURE BLOOD ADULT (SET OF 2) (Final) - Performed at [facility] * NO GROWTH DAY 5 - [place] [address] [place] [address] Bryce Palmer MD us Esthela Lucia MD LAB BLOOD ORDERABLES Shruthi grossman Result [facility] HISTORICAL RESULTS * Lipase (11/20/2016 12:31 AM MOBILE APPLICATION ENGINEER) Lipase 57 13 - 60 U/L 11/20/2016 10:16 AM MOBILE APPLICATION ENGINEER [facility] HISTORICAL RESULTS 11/20/2016 12:3 1 AM MOBILE APPLICATION ENGINEER 11/20/2016 1:00 AM MOBILE APPLICATION ENGINEER us Esthela Lucia MD LAB BLOOD ORDERABLES Shruthi l Result Performing Organization Address [facility] Number [facility] HISTORICAL RESULTS * (ABNORMAL) Amylase (11/20/2016 12:31 AM MOBILE APPLICATION ENGINEER) Amylase 116(H) 28 - 100 U/L 11/20/2016 12:3 1 AM MOBILE APPLICATION ENGINEER 11/20/2016 1:00 AM MOBILE APPLICATION ENGINEER Result Nayan Lucia MD LAB BLOOD ORDERABLES Shruthi l Result Performing Organization Address [facility] Number [facility] HISTORICAL RESULTS * Protime-INR (11/20/2016 12:31 AM MOBILE APPLICATION ENGINEER) PT 12.9 11.8 - 14.5 SECONDS INR 0.97 0.01 - 5.99 Comment: Recommended Therapeutic range for Oral Anticoagulant Therapy No anti-coagulation therapy ? Normal Range: ?0.8-1.4 Anti-coagulation therapy ? Low intensity therapy ?2.0-3.0 ? High intensity therapy ?? 2.5-3.5 Critical Value ? Greater than or equal to 6.0 Patients should be monitored for serious bleeding. ?? 11/20/2016 12:3 1 AM MOBILE APPLICATION ENGINEER 11/20/2016 1:00 AM MOBILE APPLICATION ENGINEER us Esthela Lucia MD LAB BLOOD ORDERABLES Shruthi l Result Performing Organization Address [facility] Co de Phone Number [facility] HISTORICAL RESULTS * (ABNORMAL) PROCALCITONIN Pre-antibiotic (11/20/2016 12:31 AM MOBILE APPLICATION ENGINEER) Procalcitonin 0.70(H) 0.0 - 0.24 ng/mL 11/20/2016 2:26 AM MOBILE APPLICATION ENGINEER [facility] HISTORICAL RESULTS Comment: Reflex Procalcitonin will be drawn in 48 hours.Guidelines for use with Community Acquired Pneumonia(CAP)- ONLY: ?? <0.1 ng/mL: Use of antibiotics is STRONGLY discouraged ?? 0.1-0.24 ng/mL: Use of antibiotics is discouraged ?? 0.25-0.5 ng/mL: Use of antibiotics is encouraged ?? >0.5 ng/mL: Use of antibiotics is STRONGLY encouraged ?? Recommend repeating every 2-3 days if initial PCT >0.24 11/20/2016 12:3 1 AM MOBILE APPLICATION ENGINEER 11/20/2016 1:00 AM MOBILE APPLICATION ENGINEER Esthela Lucia MD LAB BLOOD ORDERABLES Hsruthi l Result Performing Organization Address [facility] Co de Phone Number [facility] HISTORICAL RESULTS * aPTT (11/20/2016 12:31 AM MOBILE APPLICATION ENGINEER) Pathologist [facility] APTT 29 26 - 33 SECONDS 11/20/2016 12:3 1 AM MOBILE APPLICATION ENGINEER 11/20/2016 1:00 AM MOBILE APPLICATION ENGINEER Esthela Lucia MD LAB BLOOD ORDERABLES Shruthi l Result Performing Organization Address [facility] Co de Phone Number [facility] HISTORICAL RESULTS * (ABNORMAL) Comprehensive metabolic panel (11/20/2016 12:31 AM MOBILE APPLICATION ENGINEER) Sodium 132(L) 135 - 145 mmol/L Potassium 4.2 3.3 - 5.1 mmol/L 11/20/2016 1:33 AM [employer] HISTORICAL RESULTS Chloride 99 96 - 108 mmol/L 11/20/2016 1:33 AM [employer] [facility] [employer] HISTORICAL RESULTS Carbon Dioxide 11(L) 22 - 32 mmol/L 11/20/2016 1:33 AM [employer] [facility] [employer] [facility] [employer] HISTORICAL RESULTS Anion Gap 22(H) 7 - 16 11/20/2016 1:33 AM [employer] [facility] [employer] [facility] [employer] HISTORICAL RESULTS Glucose 124(H) 70 - 100 mg/dL 11/20/2016 1:33 AM [employer] [facility] [employer] HISTORICAL RESULTS BUN 58(H) 8 - 23 mg/dL 11/20/2016 1:33 AM [employer] [facility] [employer] [facility] [employer] HISTORICAL RESULTS Creatinine 7.2(H) 0.5 - 1.3 mg/dL 11/20/2016 1:33 AM [employer] HISTORICAL RESULTS Comment: NOTE: Estimated GFR (Cockroft-Gault) will NOT be calculated unless patient Height and Weight were entered. Also, Kidney Disease Stage (GFR) and Estimated GFR (Cockroft-Gault) will NOT be calculated if Creatinine result is <0.2. Kidney Disease Stage < 15 mL/MIN 11/20/2016 1:33 AM [employer] HISTORICAL RESULTS Comment: NOTE; ??The GFR is [...] dialysis @ Est GFR (Cockcroft-G) 7 ml/MIN Comment: Estimated GFR(Cockroft-Gault)is used to calculate patient medication dosage Calcium 8.2(L) 8.8 - 10.2 mg/dL Total Protein 6.8 6.4 - 8.3 g/dL Albumin 3.7 3.5 - 5.2 g/dL Globulin 3.1 2.3 - 3.5 gm/dL Albumin/Globulin Ratio 1.2 1.1 - 1.8 Total Bilirubin 0.3 0.0 - 1.2 mg/dL AST 12 0 - 40 U/L ALT 13 0 - 41 U/L Alkaline Phosphatase 80 40 - 129 U/L 11/20/2016 12:3 1 AM MOBILE APPLICATION ENGINEER 11/20/2016 1:00 AM [facility] us Esthela Lucia MD LAB BLOOD ORDERABLES Shruthi grossman Result [facility] HISTORICAL RESULTS * (ABNORMAL) CBC with auto differential (11/20/2016 12:31 AM MOBILE APPLICATION ENGINEER) WBC 6.5 4.6 - 10.2 x10 3/ul RBC 4.36 4.11 - 5.71 x10 6/ul Hemoglobin 12.5(L) 13.0 - 17.0 g/dl Hct 39.6 38.2 - 48.5 % 11/20/2016 1:08 AM MOBILE APPLICATION ENGINEER [facility] [employer] [facility] [employer] HISTORICAL RESULTS MCV 90.8 80.0 - 97.0 fl 11/20/2016 1:08 AM MOBILE APPLICATION ENGINEER [facility] [employer] [facility] [employer] HISTORICAL RESULTS MCH 28.7 27.0 - 31.2 pg 11/20/2016 1:08 AM [employer] [facility] [employer] HISTORICAL RESULTS MCHC 31.6(L) 31.8 - 35.4 g/dl 11/20/2016 1:08 AM [employer] HISTORICAL RESULTS RDW 14.5 11.6 - 14.8 % 11/20/2016 1:08 AM [employer] [facility] [employer] HISTORICAL RESULTS Plt Count 171 124 - 400 x10 3/ul 11/20/2016 1:08 AM [employer] HISTORICAL RESULTS MPV 11.2(H) 7.4 - 10.4 fl 11/20/2016 1:08 AM [employer] HISTORICAL RESULTS Neut % 64.2 37.0 - 85.0 % 11/20/2016 1:08 AM [employer] HISTORICAL RESULTS Immature Gran % 0.9 0.0 - 3.0 % 11/20/2016 1:08 AM [employer] [facility] [employer] HISTORICAL RESULTS Lymph % 24.5 5.0 - 45.0 % 11/20/2016 1:08 AM [employer] HISTORICAL RESULTS [place] % 9.9 3.0 - 15.0 % 11/20/2016 1:08 AM [employer] [facility] [employer] HISTORICAL RESULTS Eos % 0.2 0.0 - 7.0 % 11/20/2016 1:08 AM [employer] HISTORICAL RESULTS Baso % 0.3 0.0 - 2.0 % 11/20/2016 1:08 AM [employer] [facility] [employer] HISTORICAL RESULTS Absolute Neuts (auto) 4.2 1.7 - 8.7 x10 3/ul 11/20/2016 1:08 AM [employer] HISTORICAL RESULTS Immature Gran # 0.1 0.0 - 0.3 x10 3/ul 11/20/2016 1:08 AM [employer] HISTORICAL RESULTS Absolute Lymphs (auto) 1.6 0.2 - 4.6 x10 3/ul 11/20/2016 1:08 AM [employer] HISTORICAL RESULTS Absolute Monos (auto) 0.6 0.1 - 1.5 x10 3/ul 11/20/2016 1:08 AM MOBILE APPLICATION ENGINEER [facility] HISTORICAL RESULTS Absolute Eos (auto) 0.0 0.0 - 0.7 x10 3/ul 11/20/2016 1:08 AM MOBILE APPLICATION ENGINEER [facility] HISTORICAL RESULTS Absolute Basos (auto) 0.0 0.0 - 0.2 x10 3/ul 11/20/2016 1:08 AM MOBILE APPLICATION ENGINEER [facility] HISTORICAL RESULTS 11/20/2016 12:3 1 AM MOBILE APPLICATION ENGINEER 11/20/2016 1:00 AM MOBILE APPLICATION ENGINEER Esthela Lucia MD LAB BLOOD ORDERABLES Shruthi l Result [facility] HISTORICAL RESULTS * Lactate (11/20/2016 12:31 AM MOBILE APPLICATION ENGINEER) L-Lactate 1.5 mmol/L 11/20/2016 1:17 AM MOBILE APPLICATION ENGINEER [facility] HISTORICAL RESULTS Comment:Lactate Reference Ra nge: 0.5 - 2.2 mmol/L 11/20/2016 12:3 1 AM MOBILE APPLICATION ENGINEER 11/20/2016 1:00 AM MOBILE APPLICATION ENGINEER Narrative [facility] HISTORICAL RESULTS - 11/20/2016 1:17 AM MOBILE APPLICATION ENGINEER Js Cantu MD LAB BLOOD ORDERABLES Shruthi l Result [facility] HISTORICAL RESULTS * XR Chest 1 View (11/20/2016 12:00 AM MOBILE APPLICATION ENGINEER) Anatomical Region Laterality Modality Body, Chest N/A Radiographic Leola ging 11/20/2016 Impressions 11/20/2016 1:58 AM MOBILE APPLICATION ENGINEER ??Stable appearance of the chest. ??No evidence of an acute cardiopulmonary abnormality. THIS IS AN ELECTRONICALLY VERIFIED REPORT 11/20/2016 1:55 AM: ??Jethro Hubbard M.D. ?? Jethro Hubbard M.D. AB: 01:55 AM 01:55 AM BNA [EOD] Narrative 11/20/2016 1:58 AM MOBILE APPLICATION ENGINEER EXAMINATION: ??AP portable chest radiograph. HISTORY: ??Cough, body aches, and cold symptoms for 3 days. TECHNIQUE: ??AP portable chest radiograph. COMPARISON: ??Chest radiograph from April 09, 2016. FINDINGS: ??There are no consolidative pulmonary parenchymal opacities. ??There is no evidence of a pleural effusion or pneumothorax. ??The cardiomediastinal silhouette is stable. ??The heart size is within normal limits. ??There are no acute osseous abnormalities visualized. Procedure Note Provider, MD Js - 03/14/2021 EXAMINATION: AP portable chest radiograph. HISTORY: Cough, body aches, and cold symptoms for 3 days. TECHNIQUE: AP portable chest radiograph. COMPARISON: Chest radiograph from April 09, 2016. FINDINGS: There are no consolidative pulmonary parenchymal opacities.There is no evidence of a pleural effusion or pneumothorax. Thecardiomediastinal silhouette is stable. The heart size is within normal limits. There areno acute osseous abnormalities visualized. IMPRESSION: Stable appearance of the chest. No evidence of an acute cardiopulmonary abnormality. THIS IS AN ELECTRONICALLY VERIFIED REPORT 11/20/2016 1:55 AM: Jethro Hubbard M.D. Jethro Hubbard M.D. AB: 01:55 AM 01:55 AM BNA [EOD] us Esthela Lucia MD IMG XR PROCEDURES Final R esult * US Kidney Complete (11/20/2016 12:00 AM MOBILE APPLICATION ENGINEER) Anatomical Region Laterality Modality Kidney N/A Ultrasound 11/20/2016 Impressions 11/20/2016 9:40 AM MOBILE APPLICATION ENGINEER ??Low normal renal size. ??No hydronephrosis or mass. THIS IS AN ELECTRONICALLY VERIFIED REPORT 11/20/2016 9:36 AM: ??Emanuel Orozco M.D. ?? Emanuel Orozco M.D. CH: 09:36 AM 09:36 AM [facility] [EOD] Narrative 11/20/2016 9:40 AM MOBILE APPLICATION ENGINEER EXAMINATION: ??Bilateral renal ultrasound. HISTORY: ??Acute renal failure on admission today, kidney problems for 2 years. TECHNIQUE: ??Multiple shell-scale and color Doppler images were obtained the bilateral kidneys. COMPARISON: 04/09/2016. FINDINGS: ??Right kidney is 8.9 cm in length. ??There is no evidence of hydronephrosis. ??Renal echogenicity appears normal. ??No echogenic calculi or masses are shown. Left kidney is 8.4 cm with no hydronephrosis. ??No left echogenic renal calculi or masses. Renal echogenicity appears normal. Fluid is noted the bladder. ??Both ureteral flow jets are shown. Procedure Note Provider, MD Js - 03/14/2021 EXAMINATION: Bilateral renal ultrasound. HISTORY: Acute renal failure on admission today, kidney problems for 2years. TECHNIQUE: Multiple shell-scale and color Doppler images were obtained the bilateral kidneys. COMPARISON: 04/09/2016. FINDINGS: Right kidney is 8.9 cm in length. There is no evidence of hydronephrosis. Renal echogenicity appears normal. No echogenic calculior masses are shown. Left kidney is 8.4 cm with no hydronephrosis. No left echogenic renalcalculi or masses. Renal echogenicity appears normal. Fluid is noted the bladder. Both ureteral flow jets are shown. IMPRESSION: Low normal renal size. No hydronephrosis or mass. THIS IS AN ELECTRONICALLY VERIFIED REPORT 11/20/2016 9:36 AM: Emanuel Orozco M.D. Emanuel Orozco M.D. CH:lencho 09:36 AM 09:36 AM [facility] [EOD] George Mccall MD [facility] PROCEDURES Final Result documented in this encounter Visit Diagnoses Diagnosis Acute kidney failure (HCC) Acute kidney failure, unspecified Ulcerative colitis without complications (CMS/HCC) (HCC) Acidosis Dehydration Hearing loss Unspecified hearing loss Atherosclerotic heart disease of [place] coronary artery without angina pectoris Hyperlipidemia Other and unspecified hyperlipidemia Hypertensive chronic kidney disease with stage 1 through stage 4 chronic kidney disease, or unspecified chronic kidney disease Chronic kidney disease, stage III (moderate) (HCC) Chronic kidney disease, Stage III (moderate) Peripheral vascular disease (HCC) Unspecified peripheral vascular disease Chronic obstructive pulmonary disease (HCC) Gastro-esophageal reflux disease without esophagitis Primary osteoarthritis of right hand Primary osteoarthritis of left hand Hypothyroidism Unspecified hypothyroidism Lactose intolerance Intestinal disaccharidase deficiencies and disaccharide malabsorption Diarrhea Adverse effect of angiotensin-converting enzyme inhibitor Hypokalemia Hypopotassemia Fall Unspecified fall Bathroom of non-institutional residence single-family house as the place of occurrence of the external cause Allergy to other foods 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
--- OUTSIDE RECORDS SUMMARY | 2024-10-27 10:57 | XMS_ITS | Encounter Summary ---
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 (CMS/HCC) Social History Tobacco Use Types Packs/Day Years Used Date Smoking Tobacco: Former Sex and Gender Information Value Date Recorded Sex Assigned at Not on file 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 NTS Job: [id number] Dictated By: Solomon Martinez MD Dictated For: Solomon ?MD Jaja [EOD] Narrative 01/12/2018 9:06 AM CDT DATE OF SERVICE: 01/10/2018 REASON FOR EXAMINATION: ??I70.212. FINDINGS: ??The left common femoral and superficial femoral arteries are patent with velocity of 150, 89, 110, 56, and 119 cm/s. Popliteal artery patent with velocity is 66, 84 cm/s. ??Anterior tibial, posterior tibial and peroneal arteries patent with a velocity of 37, 61, and 39 cm respectively. ??DP pressure 176 for an NAS of greater than 1. ?? COMMENTS ON THE RIGHT: ??PT and DP pressure of greater than 200 and 162 for an NAS of greater than 1. ??Waveforms biphasic. OVERALL Procedure Note ProviderJs MD - 03/14/2021 DATE OF SERVICE: 01/10/2018 REASON FOR EXAMINATION: I70.212. FINDINGS: The left common femoral and superficial femoral arteries arepatent with velocity of 150, 89, 110, 56, and 119 cm/s. Popliteal artery patent with velocity is 66, 84 cm/s. Anterior tibial,posterior tibial and peroneal arteries patent with a velocity of 37, 61,and 39 cm respectively. DP pressure 176 for an NAS of greater than 1. COMMENTS ON THE RIGHT: PT and DP pressure of greater than 200 and 162 bhupinder NSA of greater than 1. Waveforms biphasic. OVERALL IMPRESSION: Patent arterial tree left lower extremity with normalankle-brachial indexes and waveforms bilaterally. NTS Job: [id number] Dictated By: Solomon Martinez MD Dictated For: Solomon Martinez MD [EOD] us Solomon Martinez MD IMG US PROCEDURES Final Re sult documented in this encounter Visit Diagnoses Diagnosis Atherosclerosis of [place] artery of left lower extremity with intermittent claudication (HCC) documented in this encounter
--- OUTSIDE RECORDS SUMMARY | 2024-10-27 10:57 | XMS_ITS | Encounter Summary ---
Author Organization [facility] Healthcare Address [address] [place] [address] Care Team Providers Care Automatic Nailing Machine Feeder Name Role Phone Unavailable Primary Care Provider Unavailabl e Encounter Details Date Type Department Care Team (Latest Contact Info) Description 10/26/2016 4:16 PM STACKER DRIVER - 10/28/2016 11:05 AM STACKER DRIVER Hospital Encounter [facility] Julius Saenz Jr., MD [address] [place] [id number] Acute kidney failure (CMS/HCC); Infectious gastroenteritis and colitis; Crohn's disease without complication (CMS/HCC); Atherosclerotic heart disease of [place] coronary artery without angina pectoris; Chronic obstructive pulmonary disease (CMS/HCC); Hypothyroidism; Dehydration; Acute upper respiratory infection; Hearing loss; Hyperlipidemia; Hypertensive chronic kidney disease with stage 1 through stage 4 chronic kidney disease, or unspecified chronic kidney disease; Chronic kidney disease, stage III (moderate); Peripheral vascular disease (CMS/HCC); Gastro-esophageal reflux disease without esophagitis; Primary osteoarthritis of right hand; Primary osteoarthritis of left hand; Lactose intolerance; 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; Allergy to other foods; 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; Presence of coronary angioplasty implant and graft; Other fdc (current) drug therapy Social History Tobacco Use Types Packs/Day Years Used Date Smoking Tobacco: Former Sex and Gender Information Value Date Recorded Sex Assigned at Not on file Legal Sex Male 5:49 AM STACKER DRIVER Gender Identity Not on file Sexual Orientation Not on file documented as of this encounter Last Filed Vital Signs Vital Sign Reading Time Taken Comments Blood Pressure 104/64 10/26/2016 5:19 PM STACKER DRIVER Pulse 73 10/26/2016 5:19 PM STACKER DRIVER Temperature 36.6 ??C (97.9 ??F) 10/26/2016 5:19 PM CS T Respiratory Rate - - Oxygen Saturation 100% 10/26/2016 5:19 PM STACKER DRIVER Inhaled Oxygen Concentration - - Weight 55.8 kg (123 lb) 10/26/2016 5:19 PM STACKER DRIVER Height 167.6 cm (5' 6 ) 10/26/2016 5:19 PM STACKER DRIVER Body Mass Index 19.85 10/26/2016 5:19 PM STACKER DRIVER documented in this encounter Plan of Treatment Not on file documented as of this encounter Procedures Procedure Name Priority Date/Time Associated Diagnosis Comments CBC WITH AUTO DIFFERENTIAL Routine 10/28/2016 7:55 AM STACKER DRIVER MAGNESIUM Routine 10/28/2016 7:55 AM STACKER DRIVER BASIC METABOLIC PANEL Routine 10/28/2016 7:55 AM STACKER DRIVER CLOSTRIDIUM DIFFICILE ASSAY Routine 10/27/2016 7:30 PM STACKER DRIVER UA WITH CULTURE REFLEX Routine 6 3:50 PM STACKER DRIVER CBC WITH AUTO DIFFERENTIAL Routine 10/27/2016 7:25 AM STACKER DRIVER COMPREHENSIVE METABOLIC PANEL Routine 10/27/2016 7:25 AM STACKER DRIVER MICROBIOLOGY SPECIMEN REPORT (CONVERTED) Routine 10/26/2016 8:26 PM STACKER DRIVER MICROBIOLOGY SPECIMEN REPORT (CONVERTED) Routine 10/26/2016 7:43 PM STACKER DRIVER LACTATE Routine 10/26/2016 7:43 PM STACKER DRIVER CBC WITH AUTO DIFFERENTIAL Routine 10/26/2016 1:38 PM STACKER DRIVER APTT Routine 10/26/2016 1:38 PM STACKER DRIVER PROTIME-INR Routine 10/26/2016 1:38 PM STACKER DRIVER COMPREHENSIVE METABOLIC PANEL Routine 10/26/2016 1:38 PM STACKER DRIVER documented in this encounter Results * Magnesium (10/28/2016 7:55 AM STACKER DRIVER) Pathologist [facility] Magnesium 2.0 1.6 - 2.6 mg/dL 10/28/2016 8:30 AM STACKER DRIVER [facility] [employer] HISTORICAL RESULTS Comment:Magnesium sulfate th erapy: 3.0-9.1 mg/dL 10/28/2016 7:55 AM STACKER DRIVER 10/28/2016 8:03 AM STACKER DRIVER us Velia Aguillon MD LAB BLOOD ORDERABLES Final Resu lt [facility] [employer] HISTORICAL RESULTS * (ABNORMAL) CBC with auto differential (10/28/2016 7:55 AM STACKER DRIVER) [facility] WBC 7.2 4.6 - 10.2 x10 3/ul 10/28/2016 8:06 AM [facility] [employer] HISTORICAL RESULTS RBC 3.29(L) 4.11 - 5.71 x10 6/ul 10/28/2016 8:06 AM [facility] [employer] HISTORICAL RESULTS Hemoglobin 9.8(L) 13.0 - 17.0 g/dl 10/28/2016 8:06 AM [facility] [employer] HISTORICAL RESULTS Hct 29.3(L) 38.2 - 48.5 % 10/28/2016 8:06 AM [facility] [employer] HISTORICAL RESULTS MCV 89.1 80.0 - 97.0 fl 10/28/2016 8:06 AM [facility] [employer] HISTORICAL RESULTS MCH 29.8 27.0 - 31.2 pg 10/28/2016 8:06 AM STACKER DRIVER [employer] HISTORICAL RESULTS MCHC 33.4 31.8 - 35.4 g/dl 10/28/2016 8:06 AM [facility] [employer] HISTORICAL RESULTS RDW 14.1 11.6 - 14.8 % 10/28/2016 8:06 AM [facility] [employer] HISTORICAL RESULTS Plt Count 153 124 - 400 x10 3/ul 10/28/2016 8:06 AM [facility] [employer] HISTORICAL RESULTS MPV 10.7(H) 7.4 - 10.4 fl 10/28/2016 8:[address] [facility] HISTORICAL RESULTS Neut % 64.7 37.0 - 85.0 % 10/28/2016 8:[address] [facility] HISTORICAL RESULTS Immature Gran % 0.6 0.0 - 3.0 % 10/28/2016 8:[address] [facility] HISTORICAL RESULTS Lymph % 19.3 5.0 - 45.0 % 10/28/2016 8:[address] [facility] HISTORICAL RESULTS [place] % 8.0 3.0 - 15.0 % 10/28/2016 8:[address] [facility] HISTORICAL RESULTS Eos % 6.7 0.0 - 7.0 % 10/28/2016 8:[address] [facility] HISTORICAL RESULTS Baso % 0.7 0.0 - 2.0 % 10/28/2016 8:[address] [facility] HISTORICAL RESULTS Absolute Neuts (auto) 4.6 1.7 - 8.7 x10 3/ul 10/28/2016 8:[address] [facility] HISTORICAL RESULTS Immature Gran # 0.0 0.0 - 0.3 x10 3/ul 10/28/2016 8:[address] [facility] HISTORICAL RESULTS Absolute Lymphs (auto) 1.4 0.2 - 4.6 x10 3/ul 10/28/2016 8:[address] [facility] HISTORICAL RESULTS Absolute Monos (auto) 0.6 0.1 - 1.5 x10 3/ul 10/28/2016 8:[address] [facility] HISTORICAL RESULTS Absolute Eos (auto) 0.5 0.0 - 0.7 x10 3/ul 10/28/2016 8:[address] [facility] HISTORICAL RESULTS Absolute Basos (auto) 0.1 0.0 - 0.2 x10 3/ul 10/28/2016 8:[address] [facility] HISTORICAL RESULTS 10/28/2016 7:55 AM STACKER DRIVER 10/28/2016 8:03 AM [facility] us Velia Aguillon MD LAB BLOOD ORDERABLES Final Resu lt [facility] HISTORICAL RESULTS * (ABNORMAL) Basic metabolic panel (10/28/2016 7:55 AM STACKER DRIVER) [facility] Sodium 141 135 - 145 mmol/L 10/28/2016 8:30 AM [facility] [employer] HISTORICAL RESULTS Potassium 4.1 3.3 - 5.1 mmol/L 10/28/2016 8:[address] [facility] HISTORICAL RESULTS Chloride 115(H) 96 - 108 mmol/L 10/28/2016 8:[address] [facility] HISTORICAL RESULTS Carbon Dioxide 12(L) 22 - 32 mmol/L 10/28/2016 8:[address] [facility] HISTORICAL RESULTS Anion Gap 14 7 - 16 10/28/2016 8:[address] [facility] HISTORICAL RESULTS Glucose 100 70 - 100 mg/dL 10/28/2016 8:[address] [facility] HISTORICAL RESULTS BUN 30(H) 8 - 23 mg/dL 10/28/2016 8:[address] [facility] HISTORICAL RESULTS Creatinine 1.8(H) 0.5 - 1.3 mg/dL 10/28/2016 8:[address] [facility] HISTORICAL RESULTS Comment: NOTE: Estimated GFR (Cockroft-Gault) will NOT be calculated unless patient Height and Weight were entered. Also, Kidney Disease Stage (GFR) and Estimated GFR (Cockroft-Gault) will NOT be calculated if Creatinine result is <0.2. Kidney Disease Stage 40 mL/MIN 10/28/2016 8:[address] [facility] HISTORICAL RESULTS Comment: NOTE; ??The GFR [...] dialysis @ Est GFR (Cockcroft-G) 31 ml/MIN 10/28/2016 8:[address] [facility] HISTORICAL RESULTS Comment: Estimated GFR(Cockroft-Gault)is used to calculate patient medication dosage Calcium 8.2(L) 8.8 - 10.2 mg/dL 10/28/2016 7:55 AM STACKER DRIVER 10/28/2016 8:03 AM STACKER DRIVER us Velia Aguillon MD LAB BLOOD ORDERABLES Final Resu lt Performing Organization Address [facility] de Phone Number [facility] HISTORICAL RESULTS * Clostridium difficile assay (10/27/2016 7:30 PM STACKER DRIVER) C, difficile (LAMP) NEGATIVE NEGATIVE Comment: Negative test: C. difficile molecular tests are highly sensitive. Empiric therapy for patients with diarrhea and negative C. difficile test should be avoided. Submission of more than one specimen within 7 days is not recommended. Molecular tests for C. difficile are highly sensitive and a negative result does not need to be confirmed by a second specimen. 10/27/2016 7:30 PM STACKER DRIVER 10/27/2016 7:59 PM STACKER DRIVER Narrative [facility] HISTORICAL RESULTS - 10/27/2016 10:02 PM STACKER DRIVER Collected By bs us Julius Saenz Jr., MD LAB MICROBIOLOGY - NERAL ORDERABLES Final Result Performing Organization Address [facility] Co de Phone Number [facility] HISTORICAL RESULTS * UA with Culture Reflex (10/27/2016 3:50 PM STACKER DRIVER) Ur Collection Type CLEAN CATCH Ur Culture Indicated? C&S NOT INDICATED 10/27/2016 4:[address] [facility] HISTORICAL RESULTS Urine Color YELLOW YELLOW 10/27/2016 4:[address] [facility] HISTORICAL RESULTS Urine Clarity CLEAR CLEAR 10/27/2016 4:[address] [facility] HISTORICAL RESULTS Urine Glucose (UA) NORMAL NORMAL mg/dL 10/27/2016 4:[address] [facility] HISTORICAL RESULTS Urine Bilirubin NEGATIVE NEGATIVE mg/dl 10/27/2016 4:[address] [facility] HISTORICAL RESULTS Urine Ketones NEGATIVE NEGATIVE mg/dL 10/27/2016 4:[address] [facility] HISTORICAL RESULTS Ur Specific [place] 1.013 1.005 - 1.025 10/27/2016 4:[address] [facility] HISTORICAL RESULTS Urine Blood NEGATIVE NEGATIVE mg/dl 10/27/2016 4:[address] [facility] HISTORICAL RESULTS Urine pH 5.0 5.0 - 8.0 10/27/2016 4:[address] [facility] HISTORICAL RESULTS Urine Protein NEGATIVE NEGATIVE mg/dL 10/27/2016 4:[address] [facility] HISTORICAL RESULTS Urine Urobilinogen NORMAL NORMAL mg/dL 10/27/2016 4:[address] [facility] HISTORICAL RESULTS Urine Nitrite NEGATIVE NEGATIVE 10/27/2016 4:[address] [facility] HISTORICAL RESULTS Ur Leukocyte Esterase NEGATIVE NEGATIVE Al/ul 10/27/2016 4:[address] [facility] HISTORICAL RESULTS Ur Microscopic Review Not Indicated 10/27/2016 4:[address] [facility] HISTORICAL RESULTS 10/27/2016 3:50 PM STACKER DRIVER 10/27/2016 4:32 PM [facility] us Velia Aguillon MD LAB URINE ORDERABLES Final Resu lt [facility] HISTORICAL RESULTS * (ABNORMAL) Comprehensive metabolic panel (10/27/2016 7:25 AM STACKER DRIVER) Sodium 139 135 - 145 mmol/L 10/27/2016 8:[address] [facility] HISTORICAL RESULTS Potassium 4.4 3.3 - 5.1 mmol/L 10/27/2016 8:[address] [facility] HISTORICAL RESULTS Chloride 116(H) 96 - 108 mmol/L 10/27/2016 8:14 AM [employer] [facility] [employer] HISTORICAL RESULTS Carbon Dioxide 10(L) 22 - 32 mmol/L 10/27/2016 8:14 AM STACKER DRIVER [facility] [employer] [facility] HISTORICAL RESULTS Anion Gap 13 7 - 16 10/27/2016 8:14 AM [employer] [facility] [employer] [facility] HISTORICAL RESULTS Glucose 117(H) 70 - 100 mg/dL 10/27/2016 8:14 AM STACKER DRIVER [facility] [employer] [facility] HISTORICAL RESULTS BUN 49(H) 8 - 23 mg/dL 10/27/2016 8:14 AM [facility] [employer] [facility] [employer] HISTORICAL RESULTS Creatinine 2.7(H) 0.5 - 1.3 mg/dL 10/27/2016 8:14 AM [employer] [facility] [employer] [facility] [employer] [facility] HISTORICAL RESULTS Comment: NOTE: Estimated GFR (Cockroft-Gault) will NOT be calculated unless patient Height and Weight were entered. Also, Kidney Disease Stage (GFR) and Estimated GFR (Cockroft-Gault) will NOT be calculated if Creatinine result is <0.2. Kidney Disease Stage 25 mL/MIN 10/27/2016 8:14 AM [employer] [facility] HISTORICAL RESULTS Comment: NOTE; ??The GFR is [...] or on dialysis @ Est GFR (Cockcroft-G) 21 ml/MIN 10/27/2016 8:14 AM [employer] [facility] [employer] HISTORICAL RESULTS Comment: Estimated GFR(Cockroft-Gault)is used to calculate patient medication dosage Calcium 8.2(L) 8.8 - 10.2 mg/dL 10/27/2016 8:[address] [facility] HISTORICAL RESULTS Total Protein 5.7(L) 6.4 - 8.3 g/dL 10/27/2016 8:[address] [facility] HISTORICAL RESULTS Albumin 3.2(L) 3.5 - 5.2 g/dL 10/27/2016 8:[address] [facility] HISTORICAL RESULTS Globulin 2.5 2.3 - 3.5 gm/dL 10/27/2016 8:[address] [facility] HISTORICAL RESULTS Albumin/Globulin Ratio 1.3 1.1 - 1.8 10/27/2016 8:[address] [facility] HISTORICAL RESULTS Total Bilirubin 0.3 0.0 - 1.2 mg/dL 10/27/2016 8:[address] [facility] HISTORICAL RESULTS AST 16 0 - 40 U/L 10/27/2016 8:[address] [facility] HISTORICAL RESULTS ALT 32 0 - 41 U/L 10/27/2016 8:[address] [facility] HISTORICAL RESULTS Alkaline Phosphatase 80 40 - 129 U/L 10/27/2016 8:[address] [facility] HISTORICAL RESULTS 10/27/2016 7:25 AM STACKER DRIVER 10/27/2016 7:47 AM [facility] Julius Saenz Jr., MD LAB BLOOD ORDERABLES Final Result [facility] HISTORICAL RESULTS * (ABNORMAL) CBC with auto differential (10/27/2016 7:25 AM [facility]) WBC 6.4 4.6 - 10.2 x10 3/ul 10/27/2016 8:21 AM [facility] [employer] HISTORICAL RESULTS Comment:Results reviewed RBC 3.63(L) 4.11 - 5.71 x10 6/ul 10/27/2016 8:21 AM [facility] [employer] HISTORICAL RESULTS Comment:Results reviewed Hemoglobin 10.5(L) 13.0 - 17.0 g/dl 10/27/2016 8:21 AM [facility] HISTORICAL RESULTS Comment:Results reviewed Hct 32.5(L) 38.2 - 48.5 % 10/27/2016 8:21 AM [facility] HISTORICAL RESULTS MCV 89.5 80.0 - 97.0 fl 10/27/2016 8:21 AM STACKER DRIVER [facility] [employer] HISTORICAL RESULTS MCH 28.9 27.0 - 31.2 pg 10/27/2016 8:21 AM STACKER DRIVER [facility] [employer] HISTORICAL RESULTS MCHC 32.3 31.8 - 35.4 g/dl 10/27/2016 8:21 AM STACKER DRIVER [facility] [employer] HISTORICAL RESULTS RDW 14.1 11.6 - 14.8 % 10/27/2016 8:21 AM STACKER DRIVER [facility] [employer] HISTORICAL RESULTS Plt Count 160 124 - 400 x10 3/ul 10/27/2016 8:21 AM [employer] [facility] [employer] HISTORICAL RESULTS MPV 11.9(H) 7.4 - 10.4 fl 10/27/2016 8:21 AM [facility] HISTORICAL RESULTS Neut % 66.8 37.0 - 85.0 % 10/27/2016 8:21 AM [facility] HISTORICAL RESULTS Immature Gran % 0.5 0.0 - 3.0 % 10/27/2016 8:21 AM [employer] [facility] [employer] HISTORICAL RESULTS Lymph % 18.3 5.0 - 45.0 % 10/27/2016 8:21 AM [facility] HISTORICAL RESULTS [place] % 9.3 3.0 - 15.0 % 10/27/2016 8:21 AM [facility] HISTORICAL RESULTS Eos % 4.3 0.0 - 7.0 % 10/27/2016 8:21 AM [facility] HISTORICAL RESULTS Baso % 0.8 0.0 - 2.0 % 10/27/2016 8:21 AM [employer] [facility] [employer] HISTORICAL RESULTS Absolute Neuts (auto) 4.3 1.7 - 8.7 x10 3/ul 10/27/2016 8:21 AM [facility] HISTORICAL RESULTS Immature Gran # 0.0 0.0 - 0.3 x10 3/ul 10/27/2016 8:21 AM [facility] HISTORICAL RESULTS Absolute Lymphs (auto) 1.2 0.2 - 4.6 x10 3/ul 10/27/2016 8:21 AM [facility] HISTORICAL RESULTS Absolute Monos (auto) 0.6 0.1 - 1.5 x10 3/ul Absolute Eos (auto) 0.3 0.0 - 0.7 x10 3/ul Absolute Basos (auto) 0.1 0.0 - 0.2 x10 3/ul 10/27/2016 7:25 AM STACKER DRIVER 10/27/2016 7:47 AM STACKER DRIVER us Julius Saenz Jr., MD LAB BLOOD ORDERABLES Final Result [facility] HISTORICAL RESULTS * Microbiology Specimen Report (Converted) (10/26/2016 8:26 PM STACKER DRIVER) 10/26/2016 8:26 PM STACKER DRIVER 10/26/2016 8:39 PM STACKER DRIVER Narrative [facility] HISTORICAL RESULTS - 10/26/2016 8:26 PM STACKER DRIVER Microbiology Specimen Report (Converted) SPECIMEN [id number] ?? COLLECTED: 2016-10-26 20:26:00 [id number] ?? REQ#: [id number] REQUESTING DR: Julius Saenz Jr, MD ?? SOURCE: BLOOD ?? SP DESC: COMMENT: LAC BC Draw ? LARM BC Draw ?? --- PROCEDURE --- ?--- RESULT --- ?? CULTURE BLOOD ADULT (SET OF 2) ??(Final) ??- ??Performed at [facility] ?* NO GROWTH DAY 5 - [facility] ? [address] ? [place] [address] ? Bryce Palmer MD Procedure Note 01/17/2019 Microbiology Specimen Report (Converted) SPECIMEN [id number] COLLECTED: 2016-10-26 20:26:00 [id number] REQ#:[id number] REQUESTING DR: Julius Saenz Jr, MD SOURCE: BLOOD SP DESC: COMMENT: LAC BC Draw LARM BC Draw --- PROCEDURE --- --- RESULT --- CULTURE BLOOD ADULT (SET OF 2) (Final) - Performed at [facility] * NO GROWTH DAY 5 - [facility] [address] [place] [address] Bryce Palmer MD us Julius Saenz Jr., MD LAB BLOOD ORDERABLES Final Result [facility] HISTORICAL RESULTS * Microbiology Specimen Report (Converted) (10/26/2016 7:43 PM STACKER DRIVER) 10/26/2016 7:43 PM STACKER DRIVER 10/26/2016 7:50 PM STACKER DRIVER Narrative [facility] HISTORICAL RESULTS - 10/26/2016 7:43 PM STACKER DRIVER Microbiology Specimen Report (Converted) SPECIMEN [id number] ?? COLLECTED: 2016-10-26 19:43:00 [id number] ?? REQ#: [id number] REQUESTING DR: Julius Saenz Jr, MD ?? SOURCE: BLOOD ?? SP DESC: COMMENT: LAC BC Draw ?? --- PROCEDURE --- ?--- RESULT --- ?? CULTURE BLOOD ADULT (SET OF 2) ??(Final) ??- ??Performed at [facility] ?* NO GROWTH DAY 5 - [facility] ? [address] [facility] ? [place] [address] ? Bryce Palmer MD Procedure Note 01/17/2019 Microbiology Specimen Report (Converted) SPECIMEN [id number] COLLECTED: 2016-10-26 19:43:00 [id number] REQ#:[id number] REQUESTING DR: Julius Saenz Jr, MD SOURCE: BLOOD SP DESC: COMMENT: LAC BC Draw --- PROCEDURE --- --- RESULT --- CULTURE BLOOD ADULT (SET OF 2) (Final) - Performed at [facility] * NO GROWTH DAY 5 - [facility] [address] [place] [address] Bryce Palmer MD us Julius Saenz Jr., MD LAB BLOOD ORDERABLES Final Result Performing Organization Address [facility] Co de Phone Number [facility] HISTORICAL RESULTS * Lactate (10/26/2016 7:43 PM STACKER DRIVER) L-Lactate 0.8 mmol/L Comment:Lactate Reference Ra nge: 0.5 - 2.2 mmol/L 10/26/2016 7:43 PM STACKER DRIVER 10/26/2016 7:49 PM STACKER DRIVER [facility] HISTORICAL RESULTS - 10/26/2016 8:13 PM STACKER DRIVER LAC BC Draw ?? Julius Saenz Jr., MD LAB BLOOD ORDERABLES Final Result Performing Organization Address [facility] de Phone Number [facility] HISTORICAL RESULTS * Protime-INR (10/26/2016 1:38 PM STACKER DRIVER) PT 13.5 11.8 - 14.5 SECONDS INR 1.02 0.01 - 5.99 Comment: Recommended Therapeutic range for Oral Anticoagulant Therapy No anti-coagulation therapy ? Normal Range: ?0.8-1.4 Anti-coagulation therapy ? Low intensity therapy ?2.0-3.0 ? High intensity therapy ?? 2.5-3.5 Critical Value ? Greater than or equal to 6.0 Patients should be monitored for serious bleeding. ?? 10/26/2016 1:38 PM STACKER DRIVER 10/26/2016 1:49 PM STACKER DRIVER [facility] HISTORICAL RESULTS - 10/26/2016 2:14 PM STACKER DRIVER Liza Gerri Alcazar UNATTENDED GR[employer] S[employer] SPECIALIST LAB BLOOD ORDERABLES Shruthi l Result [facility] HISTORICAL RESULTS * (ABNORMAL) aPTT (10/26/2016 1:38 PM STACKER DRIVER) APTT 21(L) 26 - 33 SECONDS 10/26/2016 1:38 PM STACKER DRIVER 10/26/2016 1:49 PM STACKER DRIVER Narrative [facility] HISTORICAL RESULTS - 10/26/2016 3:13 PM STACKER DRIVER Liza Talley Alcsurekha UNATTENDED GROUND SENSOR SPECIALIST LAB BLOOD ORDERABLES Shruthi l Result Performing Organization Address [facility] Co de Phone Number [facility] HISTORICAL RESULTS * (ABNORMAL) Comprehensive metabolic panel (10/26/2016 1:38 PM STACKER DRIVER) Sodium 137 135 - 145 mmol/L 10/26/2016 2:[address] [facility] HISTORICAL RESULTS Potassium 4.6 3.3 - 5.1 mmol/L 10/26/2016 2:[address] [facility] HISTORICAL RESULTS Chloride 107 96 - 108 mmol/L 10/26/2016 2:[address] [facility] HISTORICAL RESULTS Carbon Dioxide 9(L) 22 - 32 mmol/L 10/26/2016 2:[address] [facility] HISTORICAL RESULTS Anion Gap 21(H) 7 - 16 10/26/2016 2:[address] [facility] HISTORICAL RESULTS Glucose 169(H) 70 - 100 mg/dL 10/26/2016 2:[address] [facility] HISTORICAL RESULTS BUN 71(H) 8 - 23 mg/dL 10/26/2016 2:[address] [facility] HISTORICAL RESULTS Creatinine 4.3(H) 0.5 - 1.3 mg/dL 10/26/2016 2:[address] [facility] HISTORICAL RESULTS Comment: NOTE: Estimated GFR (Cockroft-Gault) will NOT be calculated unless patient Height and Weight were entered. Also, Kidney Disease Stage (GFR) and Estimated GFR (Cockroft-Gault) will NOT be calculated if Creatinine result is <0.2. Kidney Disease Stage 15 mL/MIN 10/26/2016 2:56 PM [facility] HISTORICAL RESULTS Comment: NOTE; ??The GFR is [...] dialysis @ Est GFR (Cockcroft-G) 13 ml/MIN 10/26/2016 2:56 PM [facility] HISTORICAL RESULTS Comment: Estimated GFR(Cockroft-Gault)is used to calculate patient medication dosage Calcium 8.8 8.8 - 10.2 mg/dL 10/26/2016 2:56 PM [facility] HISTORICAL RESULTS Total Protein 7.2 6.4 - 8.3 g/dL 10/26/2016 2:56 PM [facility] HISTORICAL RESULTS Albumin 4.2 3.5 - 5.2 g/dL 10/26/2016 2:56 PM [facility] HISTORICAL RESULTS Globulin 3.0 2.3 - 3.5 gm/dL 10/26/2016 2:56 PM [facility] HISTORICAL RESULTS Albumin/Globulin Ratio 1.4 1.1 - 1.8 10/26/2016 2:56 PM [facility] HISTORICAL RESULTS Total Bilirubin 0.3 0.0 - 1.2 mg/dL 10/26/2016 2:56 PM [facility] HISTORICAL RESULTS AST 16 0 - 40 U/L 10/26/2016 2:57 PM [facility] HISTORICAL RESULTS Comment: SPECIMEN SLIGHTLY HEMOLYZED: Hemolysis interferes with the above test. ALT 42(H) 0 - 41 U/L Alkaline Phosphatase 106 40 - 129 U/L 10/26/2016 1:38 PM STACKER DRIVER 10/26/2016 1:49 PM STACKER DRIVER Narrative [facility] HISTORICAL RESULTS - 10/26/2016 2:56 PM STACKER DRIVER us Liza Ziegler UNATTENDED [employer]IST LAB BLOOD ORDERABLES Shruthi l Result [facility] HISTORICAL RESULTS * (ABNORMAL) CBC with auto differential (10/26/2016 1:38 PM STACKER DRIVER) WBC 13.2(H) 4.6 - 10.2 x10 3/ul 10/26/2016 2:[address] [facility] HISTORICAL RESULTS RBC 4.87 4.11 - 5.71 x10 6/ul 10/26/2016 2:[address] [facility] HISTORICAL RESULTS Hemoglobin 14.1 13.0 - 17.0 g/dl 10/26/2016 2:[address] [facility] HISTORICAL RESULTS Hct 43.6 38.2 - 48.5 % 10/26/2016 2:[address] [facility] HISTORICAL RESULTS MCV 89.5 80.0 - 97.0 fl 10/26/2016 2:[address] [facility] HISTORICAL RESULTS MCH 29.0 27.0 - 31.2 pg 10/26/2016 2:[address] [facility] HISTORICAL RESULTS MCHC 32.3 31.8 - 35.4 g/dl 10/26/2016 2:[address] [facility] HISTORICAL RESULTS RDW 13.6 11.6 - 14.8 % 10/26/2016 2:[address] [facility] HISTORICAL RESULTS Plt Count 206 124 - 400 x10 3/ul 10/26/2016 2:[address] [facility] HISTORICAL RESULTS MPV 11.6(H) 7.4 - 10.4 fl 10/26/2016 2:[address] [facility] HISTORICAL RESULTS Neut % 81.0 37.0 - 85.0 % 10/26/2016 2:[address] [facility] HISTORICAL RESULTS Immature Gran % 0.5 0.0 - 3.0 % 10/26/2016 2:[address] [facility] HISTORICAL RESULTS Lymph % 10.7 5.0 - 45.0 % [place] % 7.0 3.0 - 15.0 % 10/26/2016 2:[address] [facility] HISTORICAL RESULTS Eos % 0.4 0.0 - 7.0 % 10/26/2016 2:[address] [facility] HISTORICAL RESULTS Baso % 0.4 0.0 - 2.0 % 10/26/2016 2:[address] [facility] HISTORICAL RESULTS Absolute Neuts (auto) 10.7(H) 1.7 - 8.7 x10 3/ul 10/26/2016 2:[address] [facility] HISTORICAL RESULTS Immature Gran # 0.1 0.0 - 0.3 x10 3/ul 10/26/2016 2:[address] [facility] HISTORICAL RESULTS Absolute Lymphs (auto) 1.4 0.2 - 4.6 x10 3/ul 10/26/2016 2:[address] [facility] HISTORICAL RESULTS Absolute Monos (auto) 0.9 0.1 - 1.5 x10 3/ul 10/26/2016 2:[address] [facility] HISTORICAL RESULTS Absolute Eos (auto) 0.1 0.0 - 0.7 x10 3/ul 10/26/2016 2:[address] [facility] HISTORICAL RESULTS Absolute Basos (auto) 0.1 0.0 - 0.2 x10 3/ul 10/26/2016 2:[address] [facility] HISTORICAL RESULTS 10/26/2016 1:38 PM STACKER DRIVER 10/26/2016 1:49 PM [facility] HISTORICAL RESULTS - 10/26/2016 2:03 PM STACKER DRIVER us Liza Ziegler UNATTENDED GROUND SENSOR SPECIALIST LAB BLOOD ORDERABLES Shruthi l Result [facility] HISTORICAL RESULTS documented in this encounter Visit Diagnoses Diagnosis Acute kidney failure (HCC) Acute kidney failure, unspecified Infectious gastroenteritis and colitis Crohn's disease without complication ([facility]/HCC) (HCC) Atherosclerotic heart disease of [place] coronary artery without angina pectoris Chronic obstructive pulmonary disease (HCC) Hypothyroidism Unspecified hypothyroidism Dehydration Acute upper respiratory infection Acute upper respiratory infections of unspecified site Hearing loss Unspecified hearing loss Hyperlipidemia Other and unspecified hyperlipidemia Hypertensive chronic kidney disease with stage 1 through stage 4 chronic kidney disease, or unspecified chronic kidney disease Chronic kidney disease, stage III (moderate) (HCC) Chronic kidney disease, Stage III (moderate) Peripheral vascular disease ([facility]) Unspecified peripheral vascular disease Gastro-esophageal reflux disease without esophagitis Primary osteoarthritis of right hand Primary osteoarthritis of left hand Lactose intolerance Intestinal disaccharidase deficiencies and disaccharide malabsorption 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
--- OUTSIDE RECORDS SUMMARY | 2024-10-27 10:57 | XMS_ITS | Encounter Summary ---
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 us Historical Provider Final Res ult documented in this encounter Visit Diagnoses Not on filedocumented in this encounter Care Teams Welder Tool And Die Relationship Specialty Start Date End Date Nickie Negron MD [address] [place] [address] PCP - General 01/13/19 documented as of this encounter
--- OUTSIDE RECORDS SUMMARY | 2024-10-27 10:57 | XMS_ITS | Encounter Summary ---
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
--- OUTSIDE RECORDS SUMMARY | 2024-10-27 10:57 | XMS_ITS | Encounter Summary ---
Author Organization [facility] Healthcare Address [address] [place] [address] Care Team Providers Care Photography Professor Name Role Phone Unavailable Primary Care Provider Unavailabl e Encounter Details Date Type Department Care Team (Latest Contact Info) Description 08/06/2017 9:19 AM CDT - 08/06/2017 12:15 PM CDT Hospital Encounter [facility] OP Garrett Gregory MD [address] [address] Crohn's disease without complication (CMS/HCC); Benign neoplasm of rectum; Benign neoplasm of descending colon; Acquired absence of other specified parts of digestive tract; Essential (primary) hypertension; Hypothyroidism; Other exterminator helper termite (current) drug therapy; exterminator helper termite current use of aspirin; jail current use of antithrombotics/anti platelets Social History Tobacco Use Types Packs/Day Years Used Date Smoking Tobacco: Former Sex and Gender Information Value Date Recorded Sex Assigned at Not on file Legal Sex Male 5:49 AM ANIMAL TECH Gender Identity Not on file Sexual Orientation Not on file documented as of this encounter Last Filed Vital Signs Vital Sign Reading Time Taken Comments Blood Pressure 121/68 07/17/2017 12:22 PM CDT Pulse 56 07/17/2017 12:22 PM CDT Temperature 36.6 ??C (97.8 ??F) 07/17/2017 12:22 PM C DT Respiratory Rate - - Oxygen Saturation 100% 07/17/2017 12:22 PM CDT Inhaled Oxygen Concentration - - Weight 56.7 kg (125 lb) 07/17/2017 12:22 PM CDT Height 162.6 cm (5' 4 ) 07/17/2017 12:22 PM CDT Body Mass Index 21.46 07/17/2017 12:22 PM CDT documented in this encounter Medications at Time of Discharge denosumab (Prolia) 60 mg/mL syringe Inject 1 mL by subcutaneous route as directed for 180 days. 11/20/2016 2 documented as of this encounter Plan of Treatment Not on file documented as of this encounter Procedures Procedure Name Priority Date/Time Associated Diagnosis Comments SCAN - PATHOLOGY 08/07/2017 12:0 0 AM CDT PROCEDURE - RESULT 08/06/2017 12 :00 AM CDT documented in this encounter Results * SCAN - PATHOLOGY (08/07/2017 12:00 AM CDT) Narrative 08/07/2017 12:00 AM CDT Ordered by an unspecified provider. us Historical Provider Final Res ult * PROCEDURE - RESULT (08/06/2017 12:00 AM CDT) Narrative 08/06/2017 12:00 AM CDT Ordered by an unspecified provider. 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
--- OUTSIDE RECORDS SUMMARY | 2024-10-27 10:57 | XMS_ITS | Encounter Summary ---
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 (CMS/HCC) Social History Tobacco Use Types Packs/Day Years Used Date Smoking Tobacco: Former Sex and Gender Information Value Date Recorded Sex Assigned at Not on file Legal Sex Male 5:49 AM PRODUCTION DEPARTMENT SUPERVISOR Gender Identity Not on file Sexual [...] ARTERIAL DUPLEX LOWER EXTREMITY LEFT LIMITED Routine 12/27/2016 12:00 AM PRODUCTION DEPARTMENT SUPERVISOR documented in this encounter Results * US Arterial Duplex Lower Extremity Left Limited (12/27/2016 12:00 AM PRODUCTION DEPARTMENT SUPERVISOR) Anatomical Region Laterality Modality Vascular Left Ultrasound 12/27/2016 Impressions 12/28/2016 7:40 AM PRODUCTION DEPARTMENT SUPERVISOR ??Normal indices and waveforms in the right lower extremity with no significant distal ischemia. ??Patent left SFA and popliteal arteries status post atherectomy. ??There is left infrapopliteal occlusive disease with mild distal ischemia. ??Ischemic claudication is unlikely bilaterally. NTS Job: [id number] Dictated By: Yvan Unger MD Dictated For: Yvan Unger MD [EOD] Narrative 12/28/2016 7:40 AM PRODUCTION DEPARTMENT SUPERVISOR DATE OF SERVICE: 12/27/2016 REASON FOR STUDY: ??Claudication. Triphasic flow in the right dorsalis pedis and posterior tibial vessels. ??NAS is greater than 1. ??The left femoral and SFA were interrogated. ??The left SFA is patent and the popliteal artery is patent with no significant stenosis. ??There is triphasic flow in the posterior tib on the left and biphasic flow in the dorsalis pedis. ??NAS is greater than 1. Procedure Note Provider, MD Js - 03/14/2021 DATE OF SERVICE: 12/27/2016 REASON FOR STUDY: Claudication. Triphasic flow in the right dorsalis pedis and posterior tibial vessels.NAS is greater than 1. The left femoral and SFA were interrogated. Theleft SFA is patent and the popliteal artery is patent with no significantstenosis. There is triphasic flow in the posterior tib on the left andbiphasic flow in the dorsalis pedis. NAS is greater than 1. IMPRESSION: Normal indices and waveforms in the right lower extremitywith no significant distal ischemia. Patent left SFA and poplitealarteries status post atherectomy. There is left infrapopliteal occlusivedisease with mild distal ischemia. Ischemic claudication is unlikelybilaterally. 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
--- OUTSIDE RECORDS SUMMARY | 2024-10-27 10:57 | XMS_ITS | Encounter Summary ---
Author Organization [facility] Care Team Providers Care Accountant Helper Name Role Phone Nickie Negron MD Primary Care Provider +1- [phone] Encounter Details Date Type Department Care Team (Latest Contact Info) Description 10/08/2016 Orders Only [facility]INCON[facility] ProviderJs MD [address] [place] [address] Social History Tobacco Use Types Packs/Day Years Used Date Smoking Tobacco: Former Sex and Gender Information Value Date Recorded Sex Assigned at Not on file Legal Sex Male 5:49 AM CHANGE OVER Gender Identity Not on file Sexual Orientation Not on file documented as of this encounter Plan of Treatment Not on file documented as of this encounter Procedures Procedure Name Priority Date/Time Associated Diagnosis Comments SCAN - LABS 10/08/2016 12:00 AM CHANGE OVER documented in this encounter Results * SCAN - LABS (10/08/2016 12:00 AM CHANGE OVER) Narrative 10/08/2016 12:00 AM CHANGE OVER Ordered by an unspecified provider. us Historical Provider Final Res ult documented in this encounter Visit Diagnoses Not on filedocumented in this encounter Care Teams Accountant Helper Relationship Specialty Start Date End Date Nickie Negron MD [address] [place] [address] PCP - General 01/13/19 documented as of this encounter
--- OUTSIDE RECORDS SUMMARY | 2024-10-27 10:58 | XMS_ITS | Encounter Summary ---
Author Organization [facility] Healthcare Address [address] [place] [address] Care Team Providers Care Box Office Agent Name Role Phone Unavailable Primary Care Provider Unavailabl e Encounter Details Date Type Department Care Team (Latest Contact Info) Description 07/21/2015 4:34 PM CDT - 07/28/2015 3:25 PM CDT Hospital Encounter [facility] Gastrointestinal hemorrhage; Ulcerative colitis without complications (CMS/HCC); Cachexia (CMS/HCC); Body mass index (BMI) of 19 or less in adult; Acidosis; Crohn's disease without complication (CMS/HCC); Acute kidney failure (CMS/HCC); Systemic inflammatory response syndrome (sirs) of non-infectious origin without acute organ dysfunction (CMS/HCC); Personal history of nicotine dependence; Hypotension; Hypokalemia; Chronic obstructive pulmonary disease (CMS/HCC); Hypothyroidism; Hypomagnesemia; Encounter for immunization Social History Tobacco Use Types Packs/Day Years Used Date Smoking Tobacco: Former Sex and Gender Information Value Date Recorded Sex Assigned at Not on file 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 Gender Identity Not on file Sexual Orientation Not on file documented as of this encounter Last Filed Vital Signs Vital Sign Reading Time Taken Comments Blood Pressure 146/74 07/24/2015 12:28 PM CDT Pulse 66 07/24/2015 12:28 PM CDT Temperature 37.1 ??C (98.8 ??F) 07/24/2015 1 2:28 PM CDT Respiratory Rate - - Oxygen Saturation 100% 07/24/2015 12: 28 PM CDT Inhaled Oxygen Concentration - - Weight 52.1 kg (114 lb 12.8 oz) 015 12:28 PM CDT Height 162.6 cm (5' 4 ) 07/24/2015 12:2 8 PM CDT Body Mass Index 19.71 07/24/2015 12:28 PM CDT documented in this encounter Plan of Treatment Not on file documented as of this encounter Procedures Procedure Name Priority Date/Time Associated Diagnosis Comments CBC WITH AUTO DIFFERENTIAL Routine 07/28/2015 6:30 AM CDT PHOSPHORUS Routine 07/28/2015 6:30 AM CDT MAGNESIUM Routine 07/28/2015 6:30 AM CDT BASIC METABOLIC PANEL Routine 07/28/2015 6:30 AM CDT CALCIUM, IONIZED Routine 07/27/2015 7:10 AM CDT CBC WITH AUTO DIFFERENTIAL Routine 07/27/2015 7:10 AM CDT PHOSPHORUS Routine 07/27/2015 7:10 AM CDT MAGNESIUM Routine 07/27/2015 7:10 AM CDT ALBUMIN Routine 07/27/2015 7:10 AM CDT BASIC METABOLIC PANEL Routine 07/27/2015 7:10 AM CDT POTASSIUM LEVEL Routine 07/26/2015 2:15 PM CDT CBC WITH AUTO DIFFERENTIAL Routine 07/26/2015 6:27 AM CDT PHOSPHORUS Routine 07/26/2015 6:27 AM CDT MAGNESIUM Routine 07/26/2015 6:27 AM CDT BASIC METABOLIC PANEL Routine 07/26/2015 6:27 AM CDT CBC WITH AUTO DIFFERENTIAL Routine 07/25/2015 5:19 AM CDT PHOSPHORUS Routine 07/25/2015 5:19 AM CDT MAGNESIUM Routine 07/25/2015 5:19 AM CDT BASIC METABOLIC PANEL Routine 07/25/2015 5:19 AM CDT CBC WITH AUTO DIFFERENTIAL Routine 07/24/2015 4:49 AM CDT PHOSPHORUS Routine 07/24/2015 4:49 AM CDT MAGNESIUM Routine 07/24/2015 4:49 AM CDT BASIC METABOLIC PANEL Routine 07/24/2015 4:49 AM CDT CLOSTRIDIUM DIFFICILE ASSAY Routine 07/24/2015 2:05 AM CDT VITAMIN B12 AND FOLATE Routine 5 6:07 AM CDT IRON PROFILE W/ IBC Routine 07/23/2015 6 :07 AM CDT CBC WITH AUTO DIFFERENTIAL Routine 07/23/2015 6:07 AM CDT PHOSPHORUS Routine 07/23/2015 6:07 AM CDT MAGNESIUM Routine 07/23/2015 6:07 AM CDT FERRITIN Routine 07/23/2015 6:07 AM CDT VANCOMYCIN LEVEL RANDOM Routine 07/23/2015 6:07 AM CDT BASIC METABOLIC PANEL Routine 07/23/2015 6:07 AM CDT APTT Routine 07/22/2015 8:38 AM CDT PROTIME-INR Routine 07/22/2015 8:38 AM CDT CBC WITH AUTO DIFFERENTIAL Routine 07/22/2015 4:48 AM CDT PHOSPHORUS Routine 07/22/2015 4:48 AM CDT BASIC METABOLIC PANEL Routine 07/22/2015 4:48 AM CDT CHEST PORTABLE - POST OP Routine 07/22/2015 12:00 AM CDT PROCEDURE - RESULT 07/22/2015 12 :00 AM CDT US KIDNEY COMPLETE Routine 07/22/2015 12 :00 AM CDT HEMOGLOBIN AND HEMATOCRIT Routine 07/21/2015 10:49 PM CDT INFECTION PREVENTION MRSA ONLY (STAPHYLOCOCCUS AUREUS) PCR Routine 07/21/2015 7:49 PM CDT EOSINOPHIL COUNT, URINE Routine 07/21/2015 6:40 PM CDT POTASSIUM, URINE, RANDOM Routine 07/21/2015 6:40 PM CDT CREATININE, URINE, RANDOM Routine 07/21/2015 6:40 PM CDT HEMOGLOBIN AND HEMATOCRIT Routine 07/21/2015 5:16 PM CDT OSMOLALITY, BLOOD Routine 07/21/2015 5:1 6 PM CDT HIV-1 AND HIV-2 ANTIBODY, RAPID Routine 07/21/2015 4:03 PM CDT HEPATITIS PANEL, ACUTE Routine 5 4:03 PM CDT CORTISOL Routine 07/21/2015 4:03 PM CDT ACETAMINOPHEN LEVEL Routine 07/21/2015 4 :03 PM CDT SALICYLATE LEVEL Routine 07/21/2015 4:03 PM CDT MICROBIOLOGY SPECIMEN REPORT (CONVERTED) Routine 07/21/2015 3:00 PM CDT URINALYSIS AND REFLEX TO MICROSCOPIC AND CULTURE Routine 07/21/2015 3:00 PM CDT SODIUM, URINE, RANDOM Routine 07/21/2015 3:00 PM CDT POTASSIUM, URINE, RANDOM Routine 07/21/2015 3:00 PM CDT OSMOLALITY, URINE Routine 07/21/2015 3:0 0 PM CDT CREATININE, URINE, RANDOM Routine 07/21/2015 3:00 PM CDT MICROBIOLOGY SPECIMEN REPORT (CONVERTED) Routine 07/21/2015 1:48 PM CDT MICROBIOLOGY SPECIMEN REPORT (CONVERTED) Routine 07/21/2015 1:09 PM CDT HEMOGRAM WITH MANUAL DIFFERENTIAL Routine 07/21/2015 1:09 PM CDT LACTATE Routine 07/21/2015 1:09 PM CDT SLIDE REVIEW - PATHOLOGIST Routine 07/21/2015 1:09 PM CDT APTT Routine 07/21/2015 1:09 PM CDT ERYTHROCYTE SEDIMENTATION RATE Routine 07/21/2015 1:09 PM CDT PROTIME-INR Routine 07/21/2015 1:09 PM CDT CRP (ACUTE PHASE) Routine 07/21/2015 1:0 9 PM CDT CREATINE KINASE (CK), TOTAL Routine 07/21/2015 1:09 PM CDT COMPREHENSIVE METABOLIC PANEL Routine 07/21/2015 1:09 PM CDT XR CHEST 1 VIEW Routine 07/21/2015 12:00 AM CDT documented in this encounter Results * (ABNORMAL) Phosphorus (07/28/2015 6:30 AM CDT) Phosphorus 2.3(L) 2.5 - 4.5 mg/dL 07/28/2015 6:30 AM CDT 07/28/2015 6:52 AM CDT Historical Provider LAB BLOOD ORDERABLES Shruthi l Result [facility] HISTORICAL RESULTS * (ABNORMAL) Magnesium (07/28/2015 6:30 AM CDT) Magnesium 1.4(L) 1.6 - 2.6 mg/dL Comment:Magnesium sulfate th erapy: 3.0-9.1 mg/dL 07/28/2015 6:30 AM CDT 07/28/2015 6:52 AM CDT Historical Provider LAB BLOOD ORDERABLES Shruthi l Result [facility] HISTORICAL RESULTS * (ABNORMAL) CBC with auto differential (07/28/2015 6:30 AM CDT) Pathologist [facility] WBC 7.8 4.6 - 10.2 x10 3/ul RBC 2.62(L) 4.11 - 5.71 x10 6/ul Hemoglobin 8.4(L) 13.0 - 17.0 g/dl Hct 25.8(L) 38.2 - 48.5 % MCV 98.5(H) 80.0 - 97.0 fl MCH 32.1(H) 27.0 - 31.2 pg MCHC 32.6 31.8 - 35.4 g/dl RDW 12.6 11.6 - 14.8 % Plt Count 112(L) 124 - 400 x10 3/ul MPV 12.3(H) 7.4 - 10.4 fl Differential Method AUTOMATED DIFF --------- -- Neut % 67.7 37.0 - 85.0 % Immature Gran % 0.8 0.0 - 3.0 % Lymph % 20.5 5.0 - 45.0 % [place] % 6.2 3.0 - 15.0 % Eos % 4.4 0.0 - 7.0 % Baso % 0.4 0.0 - 2.0 % ABSOLUTE COUNTS ABSOLUTE COUNTS --------- -- Absolute Neuts (auto) 5.3 1.7 - 8.7 x10 3/ul Immature Gran # 0.1 0.0 - 0.3 x10 3/ul Absolute Lymphs (auto) 1.6 0.2 - 4.6 x10 3/ul Absolute Monos (auto) 0.5 0.1 - 1.5 x10 3/ul Absolute Eos (auto) 0.3 0.0 - 0.7 x10 3/ul Absolute Basos (auto) 0.0 0.0 - 0.2 x10 3/ul 07/28/2015 6:30 AM CDT 07/28/2015 6:52 AM CDT us Historical Provider LAB BLOOD ORDERABLES Shruthi l Result [facility] HISTORICAL RESULTS * (ABNORMAL) Basic metabolic panel (07/28/2015 6:30 AM CDT) Sodium 138 135 - 145 mmol/L Potassium 4.0 3.3 - 5.1 mmol/L Chloride 103 96 - 108 mmol/L Carbon Dioxide 25 22 - 32 mmol/L Anion Gap 10 7 - 16 Glucose 89 70 - 100 mg/dL BUN 12 8 - 23 mg/dL Creatinine 1.3 0.5 - 1.3 mg/dL Kidney Disease Stage 59 mL/MIN Comment: NOTE; ??The GFR is an [...] Kidney failure or on dialysis @ Calcium 7.6(L) 8.8 - 10.2 mg/dL 07/28/2015 6:30 AM CDT 07/28/2015 6:52 AM CDT Historical Provider LAB BLOOD ORDERABLES Shruthi l Result Performing Organization Address [facility] de Phone Number [facility] HISTORICAL RESULTS * (ABNORMAL) Phosphorus (07/27/2015 7:10 AM CDT) Phosphorus 1.8(L) 2.5 - 4.5 mg/dL 07/27/2015 7:10 AM CDT 07/27/2015 7:28 AM CDT Narrative [facility] HISTORICAL RESULTS - 07/27/2015 7:51 AM CDT Historical Provider MD LAB BLOOD ORDERABLES Shruthi l Result Performing Organization Address [facility] de Phone Number [facility] HISTORICAL RESULTS * (ABNORMAL) Magnesium (07/27/2015 7:10 AM CDT) Magnesium 1.0(L) 1.6 - 2.6 mg/dL Comment:Magnesium sulfate th erapy: 3.0-9.1 mg/dL 07/27/2015 7:10 AM CDT 07/27/2015 7:28 AM CDT Narrative [facility] HISTORICAL RESULTS - 07/27/2015 7:51 AM CDT us Historical Provider LAB BLOOD ORDERABLES Shruthi l Result [facility] HISTORICAL RESULTS * (ABNORMAL) CBC with auto differential (07/27/2015 7:10 AM CDT) [facility] WBC 6.8 4.6 - 10.2 x10 3/ul RBC 2.65(L) 4.11 - 5.71 x10 6/ul Hemoglobin 8.2(L) 13.0 - 17.0 g/dl Hct 25.7(L) 38.2 - 48.5 % MCV 97.0 80.0 - 97.0 fl MCH 30.9 27.0 - 31.2 pg MCHC 31.9 31.8 - 35.4 g/dl RDW 12.5 11.6 - 14.8 % Plt Count 99(L) 124 - 400 x10 3/ul MPV 12.1(H) 7.4 - 10.4 fl Differential Method AUTOMATED DIFF --------- -- Neut % 64.4 37.0 - 85.0 % Immature Gran % 1.5 0.0 - 3.0 % Lymph % 21.5 5.0 - 45.0 % [place] % 7.7 3.0 - 15.0 % Eos % 4.3 0.0 - 7.0 % Baso % 0.6 0.0 - 2.0 % ABSOLUTE COUNTS ABSOLUTE COUNTS --------- -- Absolute Neuts (auto) 4.4 1.7 - 8.7 x10 3/ul Immature Gran # 0.1 0.0 - 0.3 x10 3/ul Absolute Lymphs (auto) 1.5 0.2 - 4.6 x10 3/ul Absolute Monos (auto) 0.5 0.1 - 1.5 x10 3/ul Absolute Eos (auto) 0.3 0.0 - 0.7 x10 3/ul Absolute Basos (auto) 0.0 0.0 - 0.2 x10 3/ul 07/27/2015 7:10 AM [facility] 07/27/2015 7:28 AM CDT Narrative [facility] HISTORICAL RESULTS - 07/27/2015 7:43 AM CDT us Historical Provider LAB BLOOD ORDERABLES Shruthi grossman Result [facility] HISTORICAL RESULTS * (ABNORMAL) Basic metabolic panel (07/27/2015 7:10 AM CDT) [facility] Sodium 139 135 - 145 mmol/L Potassium 4.1 3.3 - 5.1 mmol/L Comment:Results reviewed Chloride 105 96 - 108 mmol/L Carbon Dioxide 24 22 - 32 mmol/L Anion Gap 10 7 - 16 Glucose 91 70 - 100 mg/dL BUN 10 8 - 23 mg/dL Creatinine 1.2 0.5 - 1.3 mg/dL Kidney Disease Stage 64 mL/MIN Comment: NOTE; ??The GFR is an [...] Kidney failure or on dialysis @ Calcium 7.2(L) 8.8 - 10.2 mg/dL 07/27/2015 7:10 AM CDT 07/27/2015 7:28 AM CDT [facility] HISTORICAL RESULTS - 07/27/2015 7:51 AM CDT Historical Provider LAB BLOOD ORDERABLES Shruthi l Result Performing Organization Address [facility] de Phone Number [facility] HISTORICAL RESULTS * Calcium, ionized (07/27/2015 7:10 AM CDT) Ionized Calcium 4.6 4.5 - 5.3 mg/dL 07/27/2015 7:10 AM CDT 07/27/2015 7:28 AM CDT [facility] HISTORICAL RESULTS - 07/27/2015 8:11 AM CDT Shree Gutiérrez MD LAB BLOOD ORDERABLES Final Re sult Performing Organization Address [facility] de Phone Number [facility] HISTORICAL RESULTS * (ABNORMAL) Albumin (07/27/2015 7:10 AM CDT) Albumin 2.8(L) 3.5 - 5.2 g/dL 07/27/2015 7:10 AM CDT 07/27/2015 7:28 AM CDT [facility] HISTORICAL RESULTS - 07/27/2015 7:48 AM CDT Shree Gutiérrez MD LAB BLOOD ORDERABLES Final Re sult Performing Organization Address [facility] Phone Number [facility] HISTORICAL RESULTS * (ABNORMAL) Potassium (07/26/2015 2:15 PM CDT) Potassium 3.1(L) 3.3 - 5.1 mmol/L 07/26/2015 2:15 PM CDT 07/26/2015 2:19 PM CDT Narrative [facility] HISTORICAL RESULTS - 07/26/2015 2:55 PM CDT Roxanne Paiz [employer]PERATOR LAB BLOOD ORDERABLES Fi nal Result Performing Organization Address [facility] HISTORICAL RESULTS * (ABNORMAL) Phosphorus (07/26/2015 6:27 AM CDT) Phosphorus 1.7(L) 2.5 - 4.5 mg/dL 07/26/2015 6:27 AM CDT 07/26/2015 7:00 AM CDT us Historical Provider LAB BLOOD ORDERABLES Shruthi l Result Performing Organization Address [facility] HISTORICAL RESULTS * (ABNORMAL) Magnesium (07/26/2015 6:27 AM CDT) Magnesium 1.0(L) 1.6 - 2.6 mg/dL Comment:Magnesium sulfate th erapy: 3.0-9.1 mg/dL 07/26/2015 6:27 AM CDT 07/26/2015 7:00 AM CDT Historical Provider LAB BLOOD ORDERABLES Shruthi l Result Performing Organization Address [facility] de Phone Number [facility] HISTORICAL RESULTS * (ABNORMAL) CBC with auto differential (07/26/2015 6:27 AM CDT) WBC 6.0 4.6 - 10.2 x10 3/ul RBC 2.38(L) 4.11 - 5.71 x10 6/ul Hemoglobin 7.5(L) 13.0 - 17.0 g/dl Hct 23.1(L) 38.2 - 48.5 % MCV 97.1(H) 80.0 - 97.0 fl 07/26/2015 7:15 AM [facility] HISTORICAL RESULTS MCH 31.5(H) 27.0 - 31.2 pg 07/26/2015 7:15 AM [facility] HISTORICAL RESULTS MCHC 32.5 31.8 - 35.4 g/dl 07/26/2015 7:15 AM [facility] HISTORICAL RESULTS RDW 12.7 11.6 - 14.8 % 07/26/2015 7:15 AM [facility] HISTORICAL RESULTS Plt Count 86(L) 124 - 400 x10 3/ul 07/26/2015 7:15 AM [facility] HISTORICAL RESULTS MPV 12.0(H) 7.4 - 10.4 fl 07/26/2015 7:15 AM [facility] HISTORICAL RESULTS Differential Method AUTOMATED DIFF --------- -- 07/26/2015 7:15 AM [facility] HISTORICAL RESULTS Neut % 54.9 37.0 - 85.0 % 07/26/2015 7:15 AM CDT [facility] RESULTS Immature Gran % 1.3 0.0 - 3.0 % 07/26/2015 7:15 AM CDT [facility] HISTORICAL RESULTS Lymph % 29.0 5.0 - 45.0 % 07/26/2015 7:15 AM CDT [facility] HISTORICAL RESULTS [place] % 8.7 3.0 - 15.0 % 07/26/2015 7:15 AM CDT [facility] HISTORICAL RESULTS Eos % 5.4 0.0 - 7.0 % Baso % 0.7 0.0 - 2.0 % ABSOLUTE COUNTS ABSOLUTE COUNTS --------- -- Absolute Neuts (auto) 3.3 1.7 - 8.7 x10 3/ul Immature Gran # 0.1 0.0 - 0.3 x10 3/ul Absolute Lymphs (auto) 1.7 0.2 - 4.6 x10 3/ul Absolute Monos (auto) 0.5 0.1 - 1.5 x10 3/ul Absolute Eos (auto) 0.3 0.0 - 0.7 x10 3/ul Absolute Basos (auto) 0.0 0.0 - 0.2 x10 3/ul 07/26/2015 6:2 7 AM CDT 07/26/2015 7:00 AM CDT us Historical Provider LAB BLOOD ORDERABLES Shruthi l Result [facility] HISTORICAL RESULTS * (ABNORMAL) Basic metabolic panel (07/26/2015 6:27 AM CDT) Sodium 138 135 - 145 mmol/L Potassium 3.0(L) 3.3 - 5.1 mmol/L Chloride 103 96 - 108 mmol/L Carbon Dioxide 25 22 - 32 mmol/L Anion Gap 10 7 - 16 Glucose 86 70 - 100 mg/dL BUN 8 8 - 23 mg/dL Creatinine 1.1 0.5 - 1.3 mg/dL Kidney Disease Stage 71 mL/MIN Comment: NOTE; ??The GFR is an [...] Kidney failure or on dialysis @ Calcium 6.9(L) 8.8 - 10.2 mg/dL 07/26/2015 6:27 AM CDT 07/26/2015 7:00 AM CDT us Historical Provider LAB BLOOD ORDERABLES Shruthi l Result [facility] HISTORICAL RESULTS * (ABNORMAL) Phosphorus (07/25/2015 5:19 AM CDT) Pathologist [facility] Phosphorus 2.1(L) 2.5 - 4.5 mg/dL 07/25/2015 5:19 AM CDT 07/25/2015 5:58 AM CDT Historical Provider LAB BLOOD ORDERABLES Shruthi l Result [facility] HISTORICAL RESULTS * (ABNORMAL) Magnesium (07/25/2015 5:19 AM CDT) Pathologist [facility] Magnesium 1.3(L) 1.6 - 2.6 mg/dL Comment:Magnesium sulfate th erapy: 3.0-9.1 mg/dL 07/25/2015 5:19 AM CDT 07/25/2015 5:58 AM CDT Historical Provider LAB BLOOD ORDERABLES Shruthi l Result [facility] HISTORICAL RESULTS * (ABNORMAL) CBC with auto differential (07/25/2015 5:19 AM CDT) [facility] WBC 7.0 4.6 - 10.2 x10 3/ul RBC 2.52(L) 4.11 - 5.71 x10 6/ul Hemoglobin 7.9(L) 13.0 - 17.0 g/dl Hct 24.0(L) 38.2 - 48.5 % MCV 95.2 80.0 - 97.0 fl MCH 31.3(H) 27.0 - 31.2 pg MCHC 32.9 31.8 - 35.4 g/dl RDW 12.8 11.6 - 14.8 % Plt Count 84(L) 124 - 400 x10 3/ul MPV 11.9(H) 7.4 - 10.4 fl Differential Method AUTOMATED DIFF --------- -- Neut % 57.7 37.0 - 85.0 % Immature Gran % 1.1 0.0 - 3.0 % Lymph % 26.1 5.0 - 45.0 % [place] % 8.5 3.0 - 15.0 % Eos % 6.0 0.0 - 7.0 % Baso % 0.6 0.0 - 2.0 % ABSOLUTE COUNTS ABSOLUTE COUNTS --------- -- Absolute Neuts (auto) 4.0 1.7 - 8.7 x10 3/ul Immature Gran # 0.1 0.0 - 0.3 x10 3/ul Absolute Lymphs (auto) 1.8 0.2 - 4.6 x10 3/ul Absolute Monos (auto) 0.6 0.1 - 1.5 x10 3/ul Absolute Eos (auto) 0.4 0.0 - 0.7 x10 3/ul Absolute Basos (auto) 0.0 0.0 - 0.2 x10 3/ul 07/25/2015 5:19 AM CDT 07/25/2015 5:58 AM CDT us Historical Provider LAB BLOOD ORDERABLES Shruthi l Result [facility] HISTORICAL RESULTS * (ABNORMAL) Basic metabolic panel (07/25/2015 5:19 AM CDT) Sodium 141 135 - 145 mmol/L Potassium 2.8(L) 3.3 - 5.1 mmol/L Chloride 102 96 - 108 mmol/L Carbon Dioxide 27 22 - 32 mmol/L Anion Gap 12 7 - 16 Glucose 85 70 - 100 mg/dL BUN 13 8 - 23 mg/dL Creatinine 1.3 0.5 - 1.3 mg/dL Kidney Disease Stage 59 mL/MIN Comment: NOTE; ??The GFR is an [...] Kidney failure or on dialysis @ Calcium 7.0(L) 8.8 - 10.2 mg/dL 07/25/2015 5:19 AM CDT 07/25/2015 5:58 AM CDT Historical Provider LAB BLOOD ORDERABLES Shruthi l Result Performing Organization Address [facility] de Phone Number [facility] HISTORICAL RESULTS * (ABNORMAL) Phosphorus (07/24/2015 4:49 AM CDT) Phosphorus 2.4(L) 2.5 - 4.5 mg/dL 07/24/2015 5:32 AM CDT [facility] HISTORICAL RESULTS 07/24/2015 4:49 AM CDT 07/24/2015 5:07 AM CDT Historical Provider LAB BLOOD ORDERABLES Shruthi l Result Performing Organization Address [facility] de Phone Number [facility] HISTORICAL RESULTS * Magnesium (07/24/2015 4:49 AM CDT) Magnesium 1.8 1.6 - 2.6 mg/dL Comment:Magnesium sulfate th erapy: 3.0-9.1 mg/dL 07/24/2015 4:49 AM CDT 07/24/2015 5:07 AM CDT us Historical Provider LAB BLOOD ORDERABLES Shruthi ngoc Result [facility] HISTORICAL RESULTS * (ABNORMAL) CBC with auto differential (07/24/2015 4:49 AM CDT) Pathologist [facility] WBC 7.7 4.6 - 10.2 x10 3/ul RBC 2.52(L) 4.11 - 5.71 x10 6/ul Hemoglobin 8.0(L) 13.0 - 17.0 g/dl Hct 23.4(L) 38.2 - 48.5 % MCV 92.9 80.0 - 97.0 fl MCH 31.7(H) 27.0 - 31.2 pg MCHC 34.2 31.8 - 35.4 g/dl RDW 13.3 11.6 - 14.8 % Plt Count 93(L) 124 - 400 x10 3/ul MPV 11.4(H) 7.4 - 10.4 fl Differential Method AUTOMATED DIFF --------- -- Neut % 63.3 37.0 - 85.0 % Immature Gran % 1.8 0.0 - 3.0 % Lymph % 22.1 5.0 - 45.0 % [place] % 8.4 3.0 - 15.0 % Eos % 3.9 0.0 - 7.0 % Baso % 0.5 0.0 - 2.0 % ABSOLUTE COUNTS ABSOLUTE COUNTS --------- -- Absolute Neuts (auto) 4.8 1.7 - 8.7 x10 3/ul Immature Gran # 0.1 0.0 - 0.3 x10 3/ul Absolute Lymphs (auto) 1.7 0.2 - 4.6 x10 3/ul Absolute Monos (auto) 0.6 0.1 - 1.5 x10 3/ul Absolute Eos (auto) 0.3 0.0 - 0.7 x10 3/ul Absolute Basos (auto) 0.0 0.0 - 0.2 x10 3/ul 07/24/2015 4:49 AM CDT 07/24/2015 5:06 AM CDT us Historical Provider LAB BLOOD ORDERABLES Shruthi l Result [facility] HISTORICAL RESULTS * (ABNORMAL) Basic metabolic panel (07/24/2015 4:49 AM CDT) Sodium 141 135 - 145 mmol/L 07/24/2015 5:32 AM [facility] [employer] [facility] HISTORICAL RESULTS Potassium 3.3 3.3 - 5.1 mmol/L 07/24/2015 5:32 AM [facility] HISTORICAL RESULTS Chloride 103 96 - 108 mmol/L 07/24/2015 5:32 AM [facility] HISTORICAL RESULTS Carbon Dioxide 28 22 - 32 mmol/L 07/24/2015 5:32 AM [facility] HISTORICAL RESULTS Anion Gap 10 7 - 16 07/24/2015 5:32 AM [facility] HISTORICAL RESULTS Glucose 88 70 - 100 mg/dL BUN 20 8 - 23 mg/dL Creatinine 1.7(H) 0.5 - 1.3 mg/dL 07/24/2015 5:35 AM [facility] HISTORICAL RESULTS Comment:Results reviewed Kidney Disease Stage 43 mL/MIN Comment: NOTE; ??The GFR is an [...] Kidney failure or on dialysis @ Calcium 7.1(L) 8.8 - 10.2 mg/dL 07/24/2015 4:49 AM CDT 07/24/2015 5:07 AM CDT Historical Provider LAB BLOOD ORDERABLES Shruthi l Result Performing Organization Address [facility] de Phone Number [facility] HISTORICAL RESULTS * Clostridium difficile assay (07/24/2015 2:05 AM CDT) C, difficile (LAMP) NEGATIVE NEGATIVE Comment: Negative test: C. difficile molecular tests are highly sensitive. Empiric therapy for patients with diarrhea and negative C. difficile test should be avoided. Submission of more than one specimen within 7 days is not recommended. Molecular tests for C. difficile are highly sensitive and a negative result does not need to be confirmed by a second specimen. 07/24/2015 2:05 AM CDT 07/24/2015 6:26 AM CDT Narrative [facility] HISTORICAL RESULTS - 07/24/2015 12:57 PM CDT Collected By JN Historical Provider LAB MICROBIOLOGY - GENERA L ORDERABLES Final Result Performing Organization Address [facility] Number [facility] HISTORICAL RESULTS * Phosphorus (07/23/2015 6:07 AM CDT) Phosphorus 4.0 2.5 - 4.5 mg/dL Comment:Results reviewed 07/23/2015 6:07 AM CDT 07/23/2015 6:12 AM CDT Narrative [facility] HISTORICAL RESULTS - 07/23/2015 6:48 AM CDT Historical Provider LAB BLOOD ORDERABLES Shruthi l Result Performing Organization Address [facility] de Phone Number [facility] HISTORICAL RESULTS * (ABNORMAL) CBC with auto differential (07/23/2015 6:07 AM CDT) WBC 9.7 4.6 - 10.2 x10 3/ul 07/23/2015 6:36 AM T [facility] [employer] [facility] HISTORICAL RESULTS Comment:Results reviewed RBC 2.73(L) 4.11 - 5.71 x10 6/ul 07/23/2015 6:36 AM CDT [facility] Hemoglobin 8.8(L) 13.0 - 17.0 g/dl 07/23/2015 6:36 AM CDT [facility] HISTORICAL RESULTS Hct 24.4(L) 38.2 - 48.5 % 07/23/2015 6:36 AM CDT [facility] HISTORICAL RESULTS MCV 89.4 80.0 - 97.0 fl 07/23/2015 6:36 AM CDT [facility] HISTORICAL RESULTS MCH 32.2(H) 27.0 - 31.2 pg 07/23/2015 6:36 AM CDT [facility] HISTORICAL RESULTS MCHC 36.1(H) 31.8 - 35.4 g/dl 07/23/2015 6:36 AM CDT [facility] [employer] [facility] HISTORICAL RESULTS RDW 13.5 11.6 - 14.8 % 07/23/2015 6:36 AM T [facility] HISTORICAL RESULTS Plt Count 119(L) 124 - 400 x10 3/ul 07/23/2015 6:36 AM T [facility] [employer] [facility] HISTORICAL RESULTS MPV 11.6(H) 7.4 - 10.4 fl 07/23/2015 6:36 AM [facility] HISTORICAL RESULTS Differential Method AUTOMATED DIFF --------- -- 07/23/2015 6:36 AM [facility] HISTORICAL RESULTS Neut % 69.3 37.0 - 85.0 % 07/23/2015 6:36 AM CDT [facility] HISTORICAL RESULTS Immature Gran % 1.3 0.0 - 3.0 % 07/23/2015 6:36 AM CDT [facility] HISTORICAL RESULTS Lymph % 20.9 5.0 - 45.0 % 07/23/2015 6:36 AM CDT [facility] HISTORICAL RESULTS [place] % 5.9 3.0 - 15.0 % Eos % 2.2 0.0 - 7.0 % Baso % 0.4 0.0 - 2.0 % ABSOLUTE COUNTS ABSOLUTE COUNTS --------- -- Absolute Neuts (auto) 6.7 1.7 - 8.7 x10 3/ul Immature Gran # 0.1 0.0 - 0.3 x10 3/ul Absolute Lymphs (auto) 2.0 0.2 - 4.6 x10 3/ul Absolute Monos (auto) 0.6 0.1 - 1.5 x10 3/ul Absolute Eos (auto) 0.2 0.0 - 0.7 x10 3/ul Absolute Basos (auto) 0.0 0.0 - 0.2 x10 3/ul 07/23/2015 6:07 AM CDT 07/23/2015 6:12 AM CDT Narrative [facility] HISTORICAL RESULTS - 07/23/2015 6:36 AM CDT us Historical Provider LAB BLOOD ORDERABLES Shruthi l Result [facility] HISTORICAL RESULTS * (ABNORMAL) Basic metabolic panel (07/23/2015 6:07 AM CDT) Sodium 138 135 - 145 mmol/L Potassium 2.7(L) 3.3 - 5.1 mmol/L Chloride 99 96 - 108 mmol/L Carbon Dioxide 24 22 - 32 mmol/L Comment:Results reviewed Anion Gap 15 7 - 16 Glucose 94 70 - 100 mg/dL BUN 58(H) 8 - 23 mg/dL Creatinine 5.0(H) 0.5 - 1.3 mg/dL Comment:Results reviewed Kidney Disease Stage < 15 mL/MIN Comment: [...] Kidney failure or on dialysis @ Calcium 7.2(L) 8.8 - 10.2 mg/dL 07/23/2015 6:07 AM [facility] 07/23/2015 6:[address] [facility] [employer] HISTORICAL RESULTS - 07/23/2015 6:47 AM CDT Historical Provider LAB BLOOD ORDERABLES Shruthi l Result Performing Organization Address [facility] Co de Phone Number [facility] HISTORICAL RESULTS * (ABNORMAL) Iron profile w/ IBC (07/23/2015 6:07 AM CDT) Iron 75 59 - 158 ug/dL 07/23/2015 6:37 AM CDT [facility] [employer] [facility] [employer] HISTORICAL RESULTS Comment:Fasting specimen pre ferred TIBC 122(L) 228 - 428 ug/dL 07/23/2015 6:37 AM CDT [facility] HISTOR[facility] RES[facility] Transferrin % Sat 61(H) 20 - 50 % 07/23/2015 6:37 AM CDT [facility] HISTORICAL RESULTS 07/23/2015 6:07 AM CDT 07/23/2015 6:12 AM CDT [employer] [facility] [employer] HISTORICAL RESULTS - 07/23/2015 6:37 AM CDT Historical Provider LAB BLOOD ORDERABLES Shruthi l Result Performing Organization Address [facility] de Phone Number [facility] HISTORICAL RESULTS * (ABNORMAL) Ferritin (07/23/2015 6:07 AM CDT) Ferritin 859.1(H) 30.0 - 400.0 ng/mL 07/23/2015 7:19 AM CDT [facility] [employer] [facility] HISTORICAL RESULTS 07/23/2015 6:07 AM CDT 07/23/2015 6:12 AM CDT [employer] [facility] [employer] HISTORICAL RESULTS - 07/23/2015 7:19 AM CDT Historical Provider LAB BLOOD ORDERABLES Shruthi l Result Performing Organization Address [facility] Co de Phone Number [facility] HISTORICAL RESULTS * (ABNORMAL) Vitamin B12 and Folate (07/23/2015 6:07 AM CDT) Vitamin B12 1011(H) 211 - 946 pg/mL 07/23/2015 7:19 AM CDT [facility] HISTORICAL RESULTS Comment:FASTING IS RECOMMEND ED Folate 17.4 7.3 - 26.1 ng/mL Comment:Fasting suggested. 07/23/2015 6:07 AM CDT 07/23/2015 6:12 AM CDT Narrative [facility] HISTORICAL RESULTS - 07/23/2015 7:19 AM CDT Historical Provider LAB BLOOD ORDERABLES Shruthi l Result Performing Organization Address [facility]/ZIP Co de Phone Number [facility] HISTORICAL RESULTS * Vancomycin, random (07/23/2015 6:07 AM CDT) Random Vancomycin 7.5 ug/mL Comment: Trough: ??10.0-20.0 ??ug/mL ??Peak: ??30.0-40.0 ??ug/mL 07/23/2015 6:07 AM CDT 07/23/2015 6:12 AM CDT [facility] HISTORICAL RESULTS - 07/23/2015 7:00 AM CDT Carmelo Arriaza NP LAB BLOOD ORDERABLES Final Resu lt Performing Organization Address [facility] Co de Phone Number [facility] HISTORICAL RESULTS * (ABNORMAL) Magnesium (07/23/2015 6:07 AM CDT) Magnesium 1.4(L) 1.6 - 2.6 mg/dL Comment:Magnesium sulfate th erapy: 3.0-9.1 mg/dL 07/23/2015 6:07 AM CDT 07/23/2015 6:12 AM CDT [facility] HISTORICAL RESULTS - 07/23/2015 6:47 AM CDT Historical Provider LAB BLOOD ORDERABLES Shruthi l Result Performing Organization Address City/[facility]/ZIP Co de Phone Number [facility] HISTORICAL RESULTS * Protime-INR (07/22/2015 8:38 AM CDT) Pathologist [facility] PT 14.5 12.2 - 14.8 SECONDS INR 1.08 0.01 - 5.99 Comment: Recommended Therapeutic range for Oral Anticoagulant Therapy No anti-coagulation therapy ? Normal Range: ?0.8-1.4 Anti-coagulation therapy ? Low intensity therapy ?2.0-3.0 ? High intensity therapy ?? 2.5-3.5 Critical Value ? Greater than or equal to 6.0 Patients should be monitored for serious bleeding. ?? 07/22/2015 8:38 AM CDT 07/22/2015 8:42 AM CDT Stacie Luna MD LAB BLOOD ORDERABLES Final Result Performing Organization Address [facility] Co de Phone Number [facility] HISTORICAL RESULTS * aPTT (07/22/2015 8:38 AM CDT) [facility] APTT 30 24 - 38 SECONDS 07/22/2015 8:38 AM CDT 07/22/2015 8:42 AM CDT us Stacie Luna MD LAB BLOOD ORDERABLES Final Result Performing Organization Address [facility]/ZIP Co de Phone Number [facility] HISTORICAL RESULTS * (ABNORMAL) Phosphorus (07/22/2015 4:48 AM CDT) Pathologist [facility] Phosphorus 9.5(H) 2.5 - 4.5 mg/dL 07/22/2015 4:48 AM CDT 07/22/2015 5:21 AM CDT us Historical Provider LAB BLOOD ORDERABLES Shruthi grossman Result [facility] HISTORICAL RESULTS * (ABNORMAL) Basic metabolic panel (07/22/2015 4:48 AM CDT) Sodium 138 135 - 145 mmol/L Potassium 3.3 3.3 - 5.1 mmol/L Chloride 99 96 - 108 mmol/L Carbon Dioxide 9(L) 22 - 32 mmol/L Anion Gap 30(H) 7 - 16 Glucose 97 70 - 100 mg/dL BUN 126(H) 8 - 23 mg/dL Creatinine 14.5(H) 0.5 - 1.3 mg/dL Kidney Disease Stage < 15 mL/MIN Comment: [...] Kidney failure or on dialysis @ Calcium 8.2(L) 8.8 - 10.2 mg/dL 07/22/2015 5:44 AM [facility] HISTORICAL RESULTS 07/22/2015 4:48 AM CDT 07/22/2015 5:21 AM CDT us Historical Provider LAB BLOOD ORDERABLES Shruthi grossman Result [facility] HISTORICAL RESULTS * (ABNORMAL) CBC with auto differential (07/22/2015 4:48 AM CDT) WBC 19.8(H) 4.6 - 10.2 x10 3/ul 07/22/2015 5:25 AM T [facility] HISTORICAL RESULTS RBC 3.18(L) 4.11 - 5.71 x10 6/ul 07/22/2015 5:25 AM T [facility] HISTORICAL RESULTS Hemoglobin 9.8(L) 13.0 - 17.0 g/dl 07/22/2015 5:25 AM T [facility] HISTORICAL RESULTS Hct 28.3(L) 38.2 - 48.5 % 07/22/2015 5:25 AM T [facility] HISTORICAL RESULTS MCV 89.0 80.0 - 97.0 fl 07/22/2015 5:25 AM T [facility] HISTORICAL RESULTS MCH 30.8 27.0 - 31.2 pg 07/22/2015 5:25 AM T [facility] HISTORICAL RESULTS MCHC 34.6 31.8 - 35.4 g/dl 07/22/2015 5:25 AM T [facility] HISTORICAL RESULTS RDW 13.8 11.6 - 14.8 % 07/22/2015 5:25 AM T [facility] HISTORICAL RESULTS Plt Count 160 124 - 400 x10 3/ul 07/22/2015 5:25 AM [facility] HISTORICAL RESULTS MPV 11.6(H) 7.4 - 10.4 fl Differential Method AUTOMATED DIFF --------- -- Neut % 85.1(H) 37.0 - 85.0 % Immature Gran % 1.1 0.0 - 3.0 % Lymph % 7.6 5.0 - 45.0 % [place] % 4.6 3.0 - 15.0 % Eos % 1.1 0.0 - 7.0 % Baso % 0.5 0.0 - 2.0 % ABSOLUTE COUNTS ABSOLUTE COUNTS --------- -- Absolute Neuts (auto) 16.9(H) 1.7 - 8.7 x10 3/ul Immature Gran # 0.2 0.0 - 0.3 x10 3/ul Absolute Lymphs (auto) 1.5 0.2 - 4.6 x10 3/ul Absolute Monos (auto) 0.9 0.1 - 1.5 x10 3/ul Absolute Eos (auto) 0.2 0.0 - 0.7 x10 3/ul Absolute Basos (auto) 0.1 0.0 - 0.2 x10 3/ul 07/22/2015 4:48 AM CDT 07/22/2015 5:21 AM CDT Shree Gutiérrez MD LAB BLOOD ORDERABLES Final Re sult [facility] HISTORICAL RESULTS * PROCEDURE - RESULT (07/22/2015 12:00 AM CDT) Narrative 07/22/2015 12:00 AM CDT Ordered by an unspecified provider. us Historical Provider Final Res ult * Chest Portable - Post Op (07/22/2015 12:00 AM CDT) Anatomical Region Laterality Modality Body N/A Radiographic Leola ging 07/22/2015 Impressions 07/22/2015 9:59 AM CDT Uncomplicated placement of a temporary right side dialysis catheter which is in satisfactory position. THIS IS AN ELECTRONICALLY VERIFIED REPORT 07/22/2015 9:56 AM: ??Tomás Pichardo M.D. Tomás Pichardo M.D. NC:dianna 09:56 AM 09:[address] [facility] [EOD] Narrative 07/22/2015 9:59 AM CDT EXAMINATION: Portable chest HISTORY: Central line placement COMPARISON: 07/21/2015 FINDINGS: Heart is normal in size. ??Right internal jugular dialysis catheter is in satisfactory position without complication. Procedure Note Provider, Js, - 03/14/2021 EXAMINATION: Portable chest HISTORY: Central line placement COMPARISON: 07/21/2015 FINDINGS: Heart is normal in size. Right internal jugular dialysis catheter is in satisfactory position without complication. IMPRESSION: Uncomplicated placement of a temporary right side dialysis catheter which is in satisfactory position. THIS IS AN ELECTRONICALLY VERIFIED REPORT 07/22/2015 9:56 AM: Tomás Pichardo M.D. Tomás Pichardo M.D. NC:nc 09:56 AM 09:[address] [facility] [EOD] us Shree Gutiérrez MD IMG XR PROCEDURES Final Resul t * US Kidney Complete (07/22/2015 12:00 AM CDT) Anatomical Region Laterality Modality Kidney N/A Ultrasound 07/22/2015 Impressions 07/22/2015 3:18 PM CDT ??No evidence of obstructive uropathy. THIS IS AN ELECTRONICALLY VERIFIED REPORT 07/22/2015 3:14 PM: ??Tomás Pichardo M.D. Tomás Pichardo M.D. NC:nc 03:14 PM 03:[address] [facility] [EOD] Narrative 07/22/2015 3:18 PM CDT Renal sonogram History of acute renal failure TECHNIQUE: ??Routine shell-scale and color Doppler imaging was performed Comparison none FINDINGS: ??The right kidney is 8.8 x 4.4 cm. ??Left kidney measures 10.4 x 3.4 cm. There is no hydronephrosis present. ??No perinephric fluid collection is noted. No significant kidney stones are present. ??The Pres[place] catheter in the urinary bladder. Procedure Note Provider, MD Js - 03/14/2021 Renal sonogram History of acute renal failure TECHNIQUE: Routine shell-scale and color Doppler imaging was performed Comparison none FINDINGS: The right kidney is 8.8 x 4.4 cm. Left kidney measures 10.4 x3.4 cm. There is no hydronephrosis present. No perinephric fluid collection isnoted. No significant kidney stones are present. The [place]cott catheter in theurinary bladder. IMPRESSION: No evidence of obstructive uropathy. THIS IS AN ELECTRONICALLY VERIFIED REPORT 07/22/2015 3:14 PM: Tomás Pichardo M.D. Tomás Pichardo M.D. NC:nc 03:14 PM 03:[address] [facility] [EOD] Shree Gutiérrez MD IMG US PROCEDURES Final Resul t * (ABNORMAL) Hemoglobin and hematocrit (07/21/2015 10:49 PM CDT) [facility] Hemoglobin 10.8(L) 13.0 - 17.0 g/dl Hct 31.4(L) 38.2 - 48.5 % 07/21/2015 10:4 9 PM CDT 07/21/2015 11:00 PM CDT Carmelo Arriaza NP LAB BLOOD ORDERABLES Final Resu lt [facility] HISTORICAL RESULTS * MRSA PCR, surveillance (07/21/2015 7:49 PM CDT) [facility] MRSA Surveill Initial MRSA NEGATIVE NEGATIVE Comment:MRSA target DNA sequ ences are not detected. 07/21/2015 7:49 PM CDT 07/21/2015 8:02 PM CDT Narrative [facility] HISTORICAL RESULTS - 07/21/2015 9:11 PM CDT Collected By [facility] Historical Provider LAB MICROBIOLOGY - GENERA L ORDERABLES Final Result [facility] HISTORICAL RESULTS * Potassium, urine, random (07/21/2015 6:40 PM CDT) [facility] Ur Random Potassium 31.6 mmol/L Comment:Random Specimen: No reference ranges 07/21/2015 6:40 PM CDT 07/21/2015 6:57 PM CDT [facility] HISTORICAL RESULTS - 07/21/2015 7:57 PM CDT Collected By KT Historical Provider LAB URINE ORDERABLES Shruthi l Result Performing Organization Address [facility] Co de Phone Number [facility] HISTORICAL RESULTS * Eosinophil count, urine (07/21/2015 6:40 PM CDT) [facility] Urine Eosinophils WBC'S PRESENT Urine Eosinophils % 0 /100 WBC Comment:NO EOSINOPHILS SEEN. 07/21/2015 6:40 PM CDT 07/21/2015 6:57 PM CDT [facility] HISTORICAL RESULTS - 07/21/2015 10:00 PM CDT Collected By [facility] ?? Urine collection method Indwelling catheter ?? Historical Provider LAB URINE ORDERABLES Shruthi l Result Performing Organization Address [facility] de Phone Number [facility] HISTORICAL RESULTS * Creatinine, urine, random (07/21/2015 6:40 PM CDT) [facility] Ur Random Creatinine 386.0 mg/dL Comment: Reference Range First morning urine: Males 39 - 259 mg/dLRandom Specimen: ??No reference ranges 07/21/2015 6:40 PM CDT 07/21/2015 6:57 PM CDT [facility] HISTORICAL RESULTS - 07/21/2015 7:27 PM CDT Collected By [facility] Historical Provider LAB URINE ORDERABLES Shruthi l Result Performing Organization Address [facility] de Phone Number [facility] HISTORICAL RESULTS * (ABNORMAL) Hemoglobin and hematocrit (07/21/2015 5:16 PM CDT) Pathologist [facility] Hemoglobin 11.1(L) 13.0 - 17.0 g/dl Hct 32.1(L) 38.2 - 48.5 % 07/21/2015 5:16 PM CDT 07/21/2015 5:22 PM CDT Narrative [facility] HISTORICAL RESULTS - 07/21/2015 5:26 PM CDT us Carmelo Arriaza NP LAB BLOOD ORDERABLES Final Resu lt Performing Organization Address [facility] de Phone Number [facility] HISTORICAL RESULTS * (ABNORMAL) Osmolality, blood (07/21/2015 5:16 PM CDT) [facility] Serum Osmolality 328(H) 270 - 300 mOsm/kg 07/21/2015 5:16 PM CDT 07/21/2015 5:22 PM CDT [facility] HISTORICAL RESULTS - 07/21/2015 5:51 PM CDT us Julieth Guillory MD LAB BLOOD ORDERABLES Final Result Performing Organization Address [facility] de Phone Number [facility] HISTORICAL RESULTS * Cortisol (07/21/2015 4:03 PM CDT) [facility] Cortisol 45.0 ug/dL Comment: CORTISOL Reference Ranges Morning hours ?? 7 - 10 AM: ??6.2 - 19.4 ug/dL Afternoon hours 4 - 8 PM: ?? 2.3 - 11.9 ug/dL 07/21/2015 4:03 PM CDT 07/21/2015 4:08 PM CDT Historical Provider LAB BLOOD ORDERABLES Shruthi l Result Performing Organization Address [facility] Co de Phone Number [facility] HISTORICAL RESULTS * Salicylate level (07/21/2015 4:03 PM CDT) Salicylates < 1 0 - 29 mg/dL 07/21/2015 4:03 PM CDT 07/21/2015 4:08 PM CDT Historical Provider LAB BLOOD ORDERABLES Shruthi l Result Performing Organization Address [facility] Phone Number [facility] HISTORICAL RESULTS * HIV-1 and HIV-2 antibody, rapid (07/21/2015 4:03 PM CDT) Pathologist [facility] HIV 1/2 Ab NONREACTIVE NONREACTIVE Comment: Note: ??A Non-Reactive result indicates an absence of detectable HIV-1/2 antibodies in the patient. However, it does not rule out recent exposure or past infection with HIV. 07/21/2015 4:03 PM CDT 07/21/2015 4:08 PM CDT [facility] Provider LAB BLOOD ORDERABLES Shruthi l Result Performing Organization Address [facility] de Phone Number [facility] HISTORICAL RESULTS * Hepatitis panel, acute (07/21/2015 4:03 PM CDT) HepBsAg NONREACT NONREACTIVE Comment: Siemens CentaurXP using KEESHA (chemiluminescent immunoassay) technology. NONREACTIVE: IgM antibodies to Hepatitis B Surface antigen not detected. REACTIVE: IgM antibodies to Hepatitis B Surface antigen detected. Reactive results will be confirmed by neutralization testing. HBsAb (immune status) NONREACT NONREACTIVE Comment: Siemens CentaurXP using KEESHA (chemiluminescent immunoassay) technology. NONREACTIVE: IgM antibodies to Hepatitis B Surface antibody not detected. REACTIVE: IgM antibodies to Hepatitis B Surface antibody detected. Hep B core IgM NONREACT NONREACTIVE 5 5:31 PM CDT [facility] HISTORICAL RESULTS Comment: Siemens CentaurXP using KEESHA [...] - GENERA L ORDERABLES Final Result [facility] HISTORICAL RESULTS * Acetaminophen level (07/21/2015 4:03 PM CDT) Acetaminophen < 15.0 10.0 - 30.0 ug/mL Comment: Acetaminophen concentrations greater than 200 ug/mL at four hours after ingestion and greater than 50 ug/mL at 12 hours after ingestion are often associated with toxicity. 07/21/2015 4:03 PM CDT 07/21/2015 4:08 PM CDT us Historical Provider LAB BLOOD ORDERABLES Shruthi l Result Performing Organization Address [facility] Co de Phone Number [facility] HISTORICAL RESULTS * Microbiology Specimen Report (Converted) (07/21/2015 3:00 PM CDT) 07/21/2015 3:00 PM CDT 07/21/2015 3:11 PM CDT Narrative [facility] HISTORICAL RESULTS - 07/21/2015 3:00 PM CDT Microbiology Specimen Report (Converted) SPECIMEN [id number] ?? COLLECTED: 2015-07-21 15:00:00 LM ?? REQ#: [id number] REQUESTING DR: Julieth Guillory MD ?? SOURCE: URINE ?? SP DESC: STR. CATH --- PROCEDURE --- ?--- RESULT --- ?? CULTURE URINE ??(Final) ??- ??Performed at [facility] ?* NO GROWTH DAY 2 <1,000 CFU/ML - [facility] ? [address] [place] [address] ? [place] [address] ? Bryce Palmer MD Procedure Note 01/17/2019 Microbiology Specimen Report (Converted) SPECIMEN [id number] COLLECTED: 2015-07-21 15:00:00 LM REQ#:[id number] REQUESTING DR: Julieth Guillory MD SOURCE: URINE SP DESC: STR. CATH --- PROCEDURE --- --- RESULT --- CULTURE URINE (Final) - Performed at [facility] * NO GROWTH DAY 2 <1,000 CFU/[place] [address] Bryce Palmer MD Julieth Guillory MD LAB BLOOD ORDERABLES Final Result Performing Organization Address [facility] Co de Phone Number [facility] HISTORICAL RESULTS * (ABNORMAL) Urinalysis reflex to microscopic and culture (07/21/2015 3:00 PM T) Ur Collection Type INDWELLING CATH Ur Culture Indicated? C&S INDICATED Comment:Culture report to price read. Urine Color [place] YELLOW Urine Clarity CLOUDY CLEAR Urine Glucose (UA) NORMAL NORMAL mg/dL Urine Bilirubin 0.5(H) NEGATIVE mg/dl Comment: Unable to verify positive bilirubin. ?? Review results with caution. Urine Ictotest TNP NEGATIVE Urine Ketones NEGATIVE NEGATIVE mg/dL Ur Specific [place] 1.018 1.005 - 1.025 Urine Blood 0.2(H) NEGATIVE mg/dl Urine pH 5.0 5.0 - 8.0 Urine Protein 30(H) NEGATIVE mg/dL Urine Urobilinogen NORMAL NORMAL mg/dL Urine Nitrite NEGATIVE NEGATIVE Ur Leukocyte Esterase 75(H) NEGATIVE Al/ul Ur Microscopic Review Indicated or Ordered Urine RBC 53 0 - 2 /HPF Urine WBC 49 0 - 2 /HPF Urine WBC Clumps Mod /HPF Urine Bacteria Few /HPF Urine Mucus Rare /LPF Ur Squamous Epith Cells Rare /HPF Hyaline Casts 22 0 - 2 /LPF 07/21/2015 3:00 PM CDT 07/21/2015 3:11 PM CDT [facility] HISTORICAL RESULTS - 07/21/2015 3:24 PM CDT us Julieth Guillory MD LAB MICROBIOLOGY - NERAL ORDERABLES Final Result [facility] HISTORICAL RESULTS * Sodium, urine, random (07/21/2015 3:00 PM CDT) Ur Random Sodium 26 mmol/L Comment:Random Specimen: No reference ranges 07/21/2015 3:00 PM CDT 07/21/2015 3:11 PM CDT [facility] HISTORICAL RESULTS - 07/21/2015 4:05 PM CDT Collected By us Julieth Guillory MD LAB URINE ORDERABLES Final Result [facility] HISTORICAL RESULTS * Potassium, urine, random (07/21/2015 3:00 PM CDT) Ur Random Potassium 37.1 mmol/L Comment:Random Specimen: No reference ranges 07/21/2015 3:00 PM CDT 07/21/2015 3:11 PM CDT Narrative [facility] HISTORICAL RESULTS - 07/21/2015 4:05 PM CDT Collected By LM Julieth Guillory MD LAB URINE ORDERABLES Final Result Performing Organization Address [facility] de Phone Number [facility] HISTORICAL RESULTS * (ABNORMAL) Osmolality, urine (07/21/2015 3:00 PM CDT) Urine Osmolality 346(L) 500 - 800 mOsm/kg 07/21/2015 3:00 PM CDT 07/21/2015 3:11 PM CDT Julieth Guillory MD LAB URINE ORDERABLES Final Result Performing Organization Address [facility] Phone Number [facility] HISTORICAL RESULTS * Creatinine, urine, random (07/21/2015 3:00 PM CDT) Pathologist [facility] Ur Random Creatinine 500.0 mg/dL Comment: Reference Range First morning urine: Males 39 - 259 mg/dLRandom Specimen: ??No reference ranges 07/21/2015 3:00 PM CDT 07/21/2015 3:11 PM CDT Narrative [facility] HISTORICAL RESULTS - 07/21/2015 3:43 PM CDT Collected By LM Julieth Guillory MD LAB URINE ORDERABLES Final Result Performing Organization Address [facility] de Phone Number [facility] HISTORICAL RESULTS * Microbiology Specimen Report (Converted) (07/21/2015 1:48 PM CDT) 07/21/2015 1:48 PM CDT 07/21/2015 1:53 PM CDT Narrative [facility] HISTORICAL RESULTS - 07/21/2015 1:48 PM CDT Microbiology Specimen Report (Converted) SPECIMEN [id number] ?? COLLECTED: 2015-07-21 13:48:00 [id number] ?? REQ#: [id number] REQUESTING DR: Julieth Guillory MD ?? SOURCE: BLOOD ?? SP DESC: --- PROCEDURE --- ?--- RESULT --- ?? CULTURE BLOOD ADULT (SET OF 2) ??(Final) ??- ??Performed at [facility] ?* NO GROWTH DAY 5 - [facility] ? [address] ? [place] [address] ? Bryce Palmer MD Procedure Note 01/17/2019 Microbiology Specimen Report (Converted) SPECIMEN [id number] COLLECTED: 2015-07-21 13:48:00 [id number] REQ#:[id number] REQUESTING DR: Julieth Guillory MD SOURCE: BLOOD SP DESC: --- PROCEDURE --- --- RESULT --- CULTURE BLOOD ADULT (SET OF 2) (Final) - Performed at [facility] * NO GROWTH DAY 5 [place] [address] Bryce Palmer MD Julieth Guillory MD LAB BLOOD ORDERABLES Final Result [facility] HISTORICAL RESULTS * Microbiology Specimen Report (Converted) (07/21/2015 1:09 PM CDT) 07/21/2015 1:09 PM CDT 07/21/2015 1:15 PM CDT Narrative [facility] HISTORICAL RESULTS - 07/21/2015 1:09 PM CDT Microbiology Specimen Report (Converted) SPECIMEN [id number] ?? COLLECTED: 2015-07-21 13:09:00 [id number] ?? REQ#: [id number] REQUESTING DR: Julieth Guillory MD ?? SOURCE: BLOOD ?? SP DESC: --- PROCEDURE --- ?--- RESULT --- ?? CULTURE BLOOD ADULT (SET OF 2) ??(Final) ??- ??Performed at [facility] ?* NO GROWTH DAY 5 - [facility] ? [address] ? [place] [address] ? Bryce Palmer MD Procedure Note 01/17/2019 Microbiology Specimen Report (Converted) SPECIMEN [id number] COLLECTED: 2015-07-21 13:09:00 [id number] REQ#:[id number] REQUESTING DR: Julieth Guillory MD SOURCE: BLOOD SP DESC: --- PROCEDURE --- --- RESULT --- CULTURE BLOOD ADULT (SET OF 2) (Final) - Performed at [facility] * NO GROWTH DAY 5 - [id number] [place] [address] Bryce Palmer MD us Julieth Guillory MD LAB BLOOD ORDERABLES Final Result Performing Organization Address [facility]/ZIP Co de Phone Number [facility] HISTORICAL RESULTS * Slide review - pathologist (07/21/2015 1:09 PM CDT) Pathologist [facility] Diff Slide Review SLIDE REVIEW Comment: Pathologist Review of Peripheral Blood Smear ?? Pathologist Review of Peripheral Blood Smear ?? Pathologist Review of Peripheral Blood Smear Hem Pathologist Commnt Comment:Agree with different ial/morphology. Path Cons Sign Path Pathologist Comment:Reviewed by Mario Blackman M.D. 07/21/2015 1:09 PM CDT 07/21/2015 1:45 PM CDT us Julieth Guillory MD LAB BLOOD ORDERABLES Final Result Performing Organization Address [facility] Co de Phone Number [facility] HISTORICAL RESULTS * (ABNORMAL) Comprehensive metabolic panel (07/21/2015 1:09 PM CDT) Sodium 138 135 - 145 mmol/L Potassium 4.2 3.3 - 5.1 mmol/L Chloride 95(L) 96 - 108 mmol/L Carbon Dioxide 9(L) 22 - 32 mmol/L Anion Gap 34(H) 7 - 16 Glucose 116(H) 70 - 100 mg/dL BUN 138(H) 8 - 23 mg/dL Creatinine 18.4(H) 0.5 - 1.3 mg/dL Kidney Disease Stage < 15 mL/MIN Comment: [...] Kidney failure or on dialysis @ Calcium 9.1 8.8 - 10.2 mg/dL Total Protein 6.8 6.4 - 8.3 g/dL Albumin 3.9 3.5 - 5.2 g/dL Globulin 2.9 2.3 - 3.5 gm/dL Albumin/Globulin Ratio 1.3 1.1 - 1.8 Total Bilirubin 0.4 0.0 - 1.2 mg/dL AST 7 0 - 40 U/L ALT 9 0 - 41 U/L Alkaline Phosphatase 98 40 - 129 U/L 07/21/2015 1:09 PM CDT 07/21/2015 1:15 PM CDT Julieth Guillory MD LAB BLOOD ORDERABLES Final Result [facility] HISTORICAL RESULTS * (ABNORMAL) Hemogram with manual differential (07/21/2015 1:09 PM CDT) WBC 32.5(H) 4.6 - 10.2 x10 3/ul RBC 4.03(L) 4.11 - 5.71 x10 6/ul Hemoglobin 12.6(L) 13.0 - 17.0 g/dl Hct 36.5(L) 38.2 - 48.5 % MCV 90.6 80.0 - 97.0 fl MCH 31.3(H) 27.0 - 31.2 pg MCHC 34.5 31.8 - 35.4 g/dl RDW 13.8 11.6 - 14.8 % Plt Count 199 124 - 400 x10 3/ul MPV 11.2(H) 7.4 - 10.4 fl MANUAL DIFF MANUAL DIFF -------- --- Comment:PATHOLOGIST'S COMMEN TS TO FOLLOW. Neutrophils % (Manual) 91(H) 37 - 80 % Lymphocytes % (Manual) 5(L) 10 - 51 % Monocytes % (Manual) 4 0 - 12 % ABSOLUTE COUNTS ABSOLUTE COUNTS -------- --- Abs Neuts cells/mm3 60495 /ul Absolute Neutrophils 29.6(H) 1.7 - 8.7 x10 3/ul Absolute Lymphocytes 1.6 0.2 - 4.6 x10 3/ul Absolute Monocytes 1.3 0.1 - 1.5 x10 3/ul Platelet Evaluation AGREE AGREE Comment:Slide review of plat elets correlates with instrument count. Poikilocytosis 2+ [place] Cells 3+ Toxic Granulation 2+ 015 2:44 PM CDT [facility] HISTORICAL RESULTS 07/21/2015 1:09 PM CDT 07/21/2015 1:45 PM CDT Narrative [facility] HISTORICAL RESULTS - 07/21/2015 2:44 PM CDT Julieth Guillory MD LAB BLOOD ORDERABLES Final Result Performing Organization Address [facility]/ZIP Co de Phone Number [facility] HISTORICAL RESULTS * (ABNORMAL) Erythrocyte sedimentation rate (07/21/2015 1:09 PM CDT) Pathologist [facility] ESR 30(H) 0 - 10 mm/hr 07/21/2015 1:09 PM CDT 07/21/2015 1:45 PM CDT Narrative [facility] HISTORICAL RESULTS - 07/21/2015 5:16 PM CDT Julieth Guillory MD LAB BLOOD ORDERABLES Final Result Performing Organization Address [facility] Co de Phone Number [facility] HISTORICAL RESULTS * (ABNORMAL) CRP (acute phase) (07/21/2015 1:09 PM CDT) Pathologist [facility] C-Reactive Protein 194.2(H) 0.0 - 4.9 mg/L 07/21/2015 1:09 PM CDT 07/21/2015 1:15 PM CDT Julieth Guillory MD LAB BLOOD ORDERABLES Final Result Performing Organization Address City/[facility]/ZIP Co de Phone Number [facility] HISTORICAL RESULTS * Creatine kinase (CK), total (07/21/2015 1:09 PM CDT) Creatine Kinase 30 20 - 200 U/L 07/21/2015 1:09 PM CDT 07/21/2015 1:15 PM CDT Julieth Guillory MD LAB BLOOD ORDERABLES Final Result Performing Organization Address [facility]/ZIP Co de Phone Number [facility] HISTORICAL RESULTS * Lactate (07/21/2015 1:09 PM CDT) [facility] L-Lactate 1.8 mmol/L Comment:Lactate Reference Ra nge: 0.5 - 2.2 mmol/L 07/21/2015 1:09 PM CDT 07/21/2015 1:15 PM CDT Julieth Guillory MD LAB BLOOD ORDERABLES Final Result Performing Organization Address [facility] de Phone Number [facility] HISTORICAL RESULTS * (ABNORMAL) Protime-INR (07/21/2015 1:09 PM CDT) [facility] PT 15.5(H) 12.2 - 14.8 SECONDS INR 1.18 0.01 - 5.99 Comment: Recommended Therapeutic range for Oral Anticoagulant Therapy No anti-coagulation therapy ? Normal Range: ?0.8-1.4 Anti-coagulation therapy ? Low intensity therapy ?2.0-3.0 ? High intensity therapy ?? 2.5-3.5 Critical Value ? Greater than or equal to 6.0 Patients should be monitored for serious bleeding. ?? 07/21/2015 1:09 PM CDT 07/21/2015 1:45 PM CDT Julieth Guillory MD LAB BLOOD ORDERABLES Final Result [facility] HISTORICAL RESULTS * aPTT (07/21/2015 1:09 PM CDT) APTT 28 24 - 38 SECONDS 07/21/2015 1:09 PM CDT 07/21/2015 1:45 PM CDT Julieth Guillory MD LAB BLOOD ORDERABLES Final Result Performing Organization Address [facility] de Phone Number [facility] HISTORICAL RESULTS * XR Chest 1 View (07/21/2015 12:00 AM CDT) Anatomical Region Laterality Modality Body, Chest N/A Radiographic Leola ging 07/21/2015 Impressions 07/21/2015 1:06 PM CDT ?? 1. ??No acute findings. ??No acute infiltrate. 2. ??Stable COPD. THIS IS AN ELECTRONICALLY VERIFIED REPORT 07/21/2015 1:02 PM: ??Julius Barrett M.D. Julius Barrett M.D. MJ:alfredo 01:02 PM 01:[address] [facility] [EOD] Narrative 07/21/2015 1:06 PM CDT EXAMINATION: ??Portable chest x-ray HISTORY: ??Shortness of breath COMPARISON: ??10/22/2011 TECHNIQUE: ??Portable chest. FINDINGS: ??Normal cardiomediastinal silhouette and pulmonary vasculature. ??No focal infiltrate or effusion. ??Lungs are hyperinflated indicating underlying COPD, unchanged. ??Osseous structures demonstrate no focal abnormality. Procedure Note Provider, Js, - 03/14/2021 EXAMINATION: Portable chest x-ray HISTORY: Shortness of breath COMPARISON: 10/22/2011 TECHNIQUE: Portable chest. FINDINGS: Normal cardiomediastinal silhouette and pulmonary vasculature.No focal infiltrate or effusion. Lungs are hyperinflated indicatingunderlying COPD, unchanged. Osseous structures demonstrate no focal abnormality. IMPRESSION: 1. No acute findings. No acute infiltrate. 2. Stable COPD. THIS IS AN ELECTRONICALLY VERIFIED REPORT 07/21/2015 1:02 PM: Julius Barrett M.D. Julius Barrett M.D. MJ:[email or web address] 01:02 PM 01:[address] [facility] [EOD] Julieth Guillory MD IMG XR PROCEDURES Fin al Result documented in this encounter Visit Diagnoses Diagnosis Gastrointestinal hemorrhage Unspecified, hemorrhage of gastrointestinal tract Ulcerative colitis without complications (CMS/HCC) (HCC) Cachexia (CMS/HCC) (HCC) Cachexia Body mass index (BMI) of 19 or less in adult Acidosis Crohn's disease without complication (CMS/HCC) (HCC) Acute kidney failure (HCC) Acute kidney failure, unspecified Systemic inflammatory response syndrome (sirs) of non-infectious origin without acute organ dysfunction (HCC) Personal history of nicotine dependence Hypotension Unspecified hypotension Hypokalemia Hypopotassemia Chronic obstructive pulmonary disease (HCC) Hypothyroidism Unspecified hypothyroidism Hypomagnesemia Disorders of magnesium metabolism Encounter for immunization documented in this encounter
--- OUTSIDE RECORDS SUMMARY | 2024-10-27 10:58 | XMS_ITS | Encounter Summary ---
Author Organization [facility] Care Team Providers Care Custodial Engineer Name Role Phone Unavailable Primary Care Provider Unavailabl e Encounter Details Date Type Department Care Team (Late st Contact Info) Description 06/22/2015 9:52 AM CDT - 06/23/2015 4:00 PM CDT Hospital Encounter [facility] Manjit Aguilera, ZAY [address] [place] [id number] Swelling, mass, or lump in head and neck; Peripheral vascular disease (CMS/HCC); Occlusion and stenosis of carotid artery; Atherosclerosis of aorta (CMS/HCC); Hypertensive kidney disease with chronic kidney disease, stage 1-4; Chronic kidney disease, stage III (moderate); Other specified chronic obstructive airways disease; Esophageal reflux; Personal history of tobacco use, presenting hazards to health; Encounter for long-term (current) use of aspirin; Encounter for long-term use of antiplatelets/antith rombotics; Encounter for long-term (current) use of steroids Social History Tobacco Use Types Packs/Day Years Used Date Smoking Tobacco: Former Sex and Gender Information Value Date Recorded Sex Assigned at Not on file Legal Sex 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[employer] Gender Identity Not on file Sexual Orientation Not on file documented as of this encounter Last Filed Vital Signs Vital Sign Reading Time Taken Comments Blood Pressure 118/65 06/23/2015 12:15 PM CDT Pulse 92 06/23/2015 12:15 PM CDT Temperature - - Respiratory Rate - - Oxygen Saturation 97% 06/23/2015 12: 15 PM CDT Inhaled Oxygen Concentration - - Weight 54.4 kg (119 lb 15.9 oz) 06/22/2015 2:56 PM CDT Height 162.6 cm (5' 4 ) 06/22/2015 2:56 PM CDT Body Mass Index 20.6 06/22/2015 2:56 PM CDT documented in this encounter Miscellaneous Notes * Op Note - Provider, MD Js - 06/22/2015 12:00 AM CDT Patient: Julius Andrade Reg No: [id number] [facility] #: [id number] Admit Dt.: 06/22/2015 : 1950 Pt Type: 200 Room No: [facility] Attending: Manjit Aguilera D.D.S. Surgeon: Manjit Aguilera D.D.S. Dictating: Manjit Aguilera D.D.S. Service Dt: 06/22/2015 OPERATIVE REPORT FIRST FIELD SERVICE COORDINATOR: AMY Gerard ANESTHESIA: General oral endotracheal. 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 NAME OF OPERATION: Removal of remaining maxillary and mandibular teeth, #4, 5, 6, 7, 8,9, 10, 11, 12, 13, 17, 18, 19, 20, 21, 22, 23, 24, 25, 26, 27, 28, 29, 30 and 31. INDICATIONS FOR PROCEDURE: This patient is a [age] year old gentleman with the above diagnosis. He is being orally intubated due to the anti-platelet therapy. The plan is to remove his remaining teeth and place immediate dentures. The surgery and all of its risks and complications were thoroughly discussed with the patient who agree to proceed. He will be admitted overnight for observation. DESCRIPTION OF PROCEDURE: The patient was taken to the operating room and placed in the dorsal recumbent position, intubated for the purpose of general anesthesia with an oral endotracheal tube. After adequate anesthesia was obtained, the patient was prepped and draped in the usual sterile manner for an intraoral surgical procedure. Xylocaine 0.5% and 1:200,000 epinephrine times 4 mL was utilized to perform bilateral mandibular, buccal, lingual anesthetic blocks as well as bilateral greater palatine, nasal palatine, anterior, middle, and posterior superior alveolar blocks. Attention was turned to the maxilla where teeth #4, 5, 6, 7, 8, 9, 10, 11, 12, and 13 were extracted with an elevator forceps technique and the gingiva was Bovied for bleeding and then the sockets were packed with [employer]. Attention was turned to the mandible where teeth #17, 18, 19, 20, 21, 22, 23, 24, 25, 26, 27, 28, 29, 30, and 31 were extracted with an elevator forceps technique as well. The sockets were packed with Surgicel and the upper and lower dentures were inserted for hemostasis. We had excellent hemostasis. The oral cavity was irrigated and suctioned and 4 x 4s were placed between the dentures for hemostasis. The patient tolerated the procedure well. He was given preoperative antibiotics. He will remain in the hospital overnight for observation. The patient was awakened in the operating room, extubated, and discharged to the recovery room in satisfactory condition. ESTIMATED BLOOD LOSS: Maybe 100 mL. INTRAOPERATIVE FLUIDS: Approximately 400 mL. Manjit Aguilera D.D.S. BAILEY/pedro #[id number] Editing MT: TD: 06/22/2015 12:11:00 cc: Manjit Aguilera D.D.S. documented in this encounter Plan of Treatment Not on file documented as of this encounter Visit Diagnoses Diagnosis Swelling, mass, or lump in head and neck Peripheral vascular disease (HCC) Unspecified peripheral vascular disease Occlusion and stenosis of carotid artery Atherosclerosis of aorta (HCC) Atherosclerosis of aorta Hypertensive kidney disease with chronic kidney disease, stage 1-4 Chronic kidney disease, stage III (moderate) (HCC) Chronic kidney disease, Stage III (moderate) Other specified chronic obstructive airways disease Esophageal reflux Personal history of tobacco use, presenting hazards to health Encounter for long-term (current) use of aspirin Encounter for long-term use of antiplatelets/antithrombotics Encounter for long-term (current) use of antiplatelets/antithrombotics Encounter for long-term (current) use of steroids documented in this encounter
--- OUTSIDE RECORDS SUMMARY | 2024-10-27 10:58 | XMS_ITS | Encounter Summary ---
Author Organization [facility] Facility Care Team Providers Care Vmware Architect Name Role Phone Unavailable Primary Care Provider Unavailabl e Encounter Details Date Type Department Care Team (Latest Contact Info) Description 06/17/2015 7:46 AM CDT - 06/17/2015 4:00 PM CDT Hospital Encounter [facility] Manjit Aguilera, ZAY [address] [place] [address] Pre-operative cardiovascular examination; Encounter for blood typing; Neoplasm of digestive system; Hypertensive kidney disease with chronic kidney disease, stage 1-4; Chronic kidney disease, stage III (moderate); Cerebrovascular disease; Peripheral vascular disease (CMS/HCC); Other specified chronic obstructive airways disease; Aortic valve disorder; Esophageal reflux; Tobacco use disorder; Hypothyroidism; Other and unspecified hyperlipidemia; 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; Encounter for long-term (current) use of aspirin; Encounter for long-term (current) use of other medications Social History Tobacco Use Types Packs/Day Years Used Date Smoking Tobacco: Former Sex and Gender Information Value Date Recorded Sex Assigned at Not on file 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 gap 10 0 - 16 mmol/L HISTORICAL RESULTS Glucose 91 70 - 199 mg/dl HISTORICAL RESULTS BUN 11 8 - 25 mg/dl HISTORICAL RESULTS Creatinine 1.08 0.70 - 1.30 mg/dl HISTORICAL RESULTS Calcium 8.7 8.6 - 10.3 mg/dl HISTORICAL RESULTS Sodium 141 135 - 145 mmol/L HISTORICAL RESULTS K, pl 3.3 3.3 - 4.9 mmol/L HISTORICAL RESULTS Chloride 108 97 - 110 mmol/L HISTORICAL RESULTS Plasma 06/17/2015 9:32 AM CDT Historical Provider LAB BLOOD ORDERABLES Shruthi grossman Result HISTORICAL RESULTS * (ABNORMAL) Blood cell count [CBC] express (06/17/2015 9:32 AM CDT) WBC 10.4(H) 3.8 - 9.8 K/cumm HISTORICAL RESULTS RBC 3.46(L) 4.50 - 5.70 M/cumm HISTORICAL RESULTS Hgb 10.5(L) 13.8 - 17.2 g/dl HISTORICAL RESULTS Hct 33.0(L) 40.7 - 50.3 % HISTORICAL RESULTS MCV 95.5 80.0 - 97.6 fl HISTORICAL RESULTS MCH 30.4 26.7 - 33.7 pg HISTORICAL RESULTS MCHC 31.8(L) 32.7 - 35.5 g/dl HISTORICAL RESULTS Rdw 13.9 11.8 - 14.6 % HISTORICAL RESULTS Platelets 188 140 - 440 K/cumm HISTORICAL RESULTS MPV 10.5(H) 6.8 - 10.4 fl HISTORICAL RESULTS Blood specimen (specimen) 06/17/2015 9:32 AM CDT us Historical Provider LAB BLOOD ORDERABLES Shruthi l Result HISTORICAL RESULTS * DISCHARGE LABORATORY CUMULATIVE REPORT (06/17/2015) Narrative 06/17/2015 Ordered by an unspecified provider. [facility] Provider LAB BLOOD ORDERABLES Shruthi l Result * ELECTROCARDIOGRAPHY (ECG) (06/17/2015) Narrative 06/17/2015 Ordered by an unspecified provider. 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 Hypertensive kidney disease with chronic kidney disease, stage 1-4 Chronic kidney disease, stage III (moderate) (HCC) Chronic kidney disease, Stage III (moderate) Cerebrovascular disease Unspecified cerebrovascular disease Peripheral vascular disease (HCC) Unspecified peripheral vascular disease Other specified chronic obstructive airways disease Aortic valve disorder Aortic valve disorders Esophageal reflux Tobacco use disorder Hypothyroidism Unspecified hypothyroidism 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
--- OUTSIDE RECORDS SUMMARY | 2024-10-27 10:58 | XMS_ITS | Encounter Summary ---
Author Organization [facility] Facility Care Team Providers Care Broadcast Traffic Coordinator Name Role Phone Unavailable Primary Care Provider Unavailabl e Encounter Details Date Type Department Care Team (Late st Contact Info) Description 05/16/2015 - 05/16/2015 11:59 PM CDT Hospital Encounter [facility] Rajwinder Mueller MD [address] [place] [address] Swelling, mass, or lump in head and neck; Occlusion and stenosis of carotid artery; Swelling, mass, or lump in chest Social History Tobacco Use Types Packs/Day Years Used Date Smoking Tobacco: Former Sex and Gender Information Value Date Recorded Sex Assigned at Not on file 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 Gender Identity Not on file Sexual Orientation Not on file documented as of this encounter Plan of Treatment Not on file documented as of this encounter Procedures Procedure Name Priority Date/Time Associated Diagnosis Comments DISCHARGE LABORATORY CUMULATIVE REPORT 05/17/[address] MR REFERENCE Routine 05/16/2015 4:[address] SOFT TISSUE NECK W CONTRAST Routine 05/16/2015 3:59 PM CDT BLOOD CREATININE, POINT OF CARE Routine 05/16/2015 3:47 PM CDT documented in this encounter Results * DISCHARGE LABORATORY CUMULATIVE REPORT (05/17/2015) Narrative 05/17/2015 Ordered by an unspecified provider. us Historical Provider LAB BLOOD ORDERABLES Shruthi l Result * OUTSIDE NEURO CT MR REFERENCE (05/16/2015 4:10 PM CDT) Anatomical Region Laterality Modality N/A Computed Tomogra phy 05/16/2015 4:10 PM CDT Narrative 05/16/2015 4:55 PM CDT OUTSIDE IMAGES SUPERVISOR LANDSCAPE, FINAL REPORT ACC# ??Date Time ??Exam [id number] May 16, 2015 16:10:00 [id number] [facility] Neuro Reference EXAMINATION: ?Images For Reference Purposes Only IMPRESSION: ?These images have been uploaded for Reference purposes only. ??There will be no separate report generated by a [facility] Radiologist. Requested By: Dictated By: ?? OUTSIDE IMAGES SUPERVISOR LANDSCAPE, ?? on May 16 2015 ??4:55P This document has been electronically signed by: OUTSIDE IMAGES SUPERVISOR LANDSCAPE, ??on May 16 2015 ??4:55P [id number] Procedure Note Provider, Js, - 03/03/2017 OUTSIDE IMAGES SUPERVISOR LANDSCAPE, FINAL REPORT ACC# Date Time Exam [id number] May 16, 2015 16:10:00 [id number] [facility] Neuro Reference EXAMINATION: Images For Reference Purposes Only IMPRESSION: These images have been uploaded for Reference purposes only. There will be no separate report generated by a [facility] Radiologist. Requested By: Dictated By: OUTSIDE IMAGES SUPERVISOR LANDSCAPE, on May 16 2015 4:55P This document has been electronically signed by: OUTSIDE IMAGES SUPERVISOR LANDSCAPE, on May 16 2015 4:55P [id number] us Historical Provider IMG CT PROCEDURES Final R esult * CT Neck Soft Tissue W Contrast (05/16/2015 3:59 PM CDT) Anatomical Region Laterality Modality Head and Neck N/A Computed Tomogra phy 05/16/2015 3:59 PM CDT Narrative 05/16/2015 4:46 PM CDT LAYLA JACKSON M.D. SUMMER DELATORRE M.D. FINAL REPORT The radiology attending physician has personally reviewed this study, and has reviewed and/or edited this written report and agrees with it. ACC# ??Date Time ??Exam [id number] May 16, 2015 15:59:[id number] Neck SoftTissue w cont ACC# ??Date Time ??Exam [id number] May 16, 2015 15:59:[id number] Neck SoftTissue w cont EXAMINATION: ?CT scan of the neck with contrast HISTORY: Left neck mass. TECHNIQUE: Axial CT images were obtained from the skull base to the thoracic inlet ?? after the uneventful intravenous administration of nonionic contrast according to the standard neck protocol. Contrast information: Intravenous Optiray 350 mg/ml for a total of 90 mL COMPARISON: None available. FINDINGS: Review of the topogram demonstrates no abnormality. Scattered subcentimeter lymph nodes are seen in the neck. ??None are pathologically enlarged or abnormally enhancing. The muscles of the neck are normal. ??Fascial planes are preserved and the deep spaces of the neck are normal. ?? The visualized airway is widely patent. Enlargement and heterogeneity of the thyroid gland is suggestive of a multinodular goiter. There is severe calcification and stenosis at the left carotid bifurcation. The base of the skull and the temporal bones are normal. The limited examination of the brain to include the cerebellum and brainstem is normal. The limited view of the [place] is unremarkable. The visualized portions of the orbits are normal. The spinal canal is normal in caliber on axial images. ??Intervertebral disk heights are normal. ??Neural foramina are normal. A mediastinal lymph node is partially imaged and measures 1.7 cm. ?? IMPRESSION: ?? 1. No mass in the left neck as clinically questionned. 2. Heavily calcified and severely stenotic left carotid artery bifurcation. 3. Enlarged, partially imaged, mediastinal lymph node or cyst. Recommend chest CT. ?? Requested By: RAJWINDER AVERY M.D. Dictated By: ?? SUMMER DELATORRE M.D. ??on May 16 2015 ??4:42P This document has been electronically signed by: LAYLA JACKSON M.D. on May 16 2015 ??4:46P [id number] Procedure Note Provider, MD Js - 03/03/2017 LAYLA JACKSON M.D. SUMMER DELATORRE M.D. FINAL REPORT The radiology attending physician has personally reviewed this study, and has reviewed and/or edited this written report and agrees with it. ACC# Date Time Exam [id number] May 16, 2015 15:59:[id number] Neck SoftTissue w cont ACC# Date Time Exam [id number] May 16, 2015 15:59:[id number] Neck SoftTissue w cont EXAMINATION: CT scan of the neck with contrast HISTORY: Left neck mass. TECHNIQUE: Axial CT images were obtained from the skull base to the thoracic inlet after the uneventful intravenous administration of nonionic contrast according to the standard neck protocol. Contrast information: Intravenous Optiray 350 mg/ml for a total of 90 mL COMPARISON: None available. FINDINGS: Review of the topogram demonstrates no abnormality. Scattered subcentimeter lymph nodes are seen in the neck. None are pathologically enlarged or abnormally enhancing. The muscles of the neck are normal. Fascial planes are preserved and the deep spaces of the neck are normal. The visualized airway is widely patent. Enlargement and heterogeneity of the thyroid gland is suggestive of a multinodular goiter. There is severe calcification and stenosis at the left carotid bifurcation. The base of the skull and the temporal bones are normal. The limited examination of the brain to include the cerebellum and brainstem is normal. The limited view of the [place] is unremarkable. The visualized portions of the orbits are normal. The spinal canal is normal in caliber on axial images. Intervertebral disk heights are normal. Neural foramina are normal. A mediastinal lymph node is partially imaged and measures 1.7 cm. IMPRESSION: 1. No mass in the left neck as clinically questionned. 2. Heavily calcified and severely stenotic left carotid artery bifurcation. 3. Enlarged, partially imaged, mediastinal lymph node or cyst. Recommend chest CT. Requested By: RAJWINDER AVERY M.D. Dictated By: SUMMER DELATORRE M.D. on May 16 2015 4:42P This document has been electronically signed by: LAYLA JACKSON M.D. on May 16 2015 4:46P [id number] Historical Provider MD IMG CT PROCEDURES Final R esult * (ABNORMAL) Blood creatinine, point of care (05/16/2015 3:47 PM CDT) Creatinine, POC, bld 1.4(H) 0.7 - 1.3 mg/dl HISTORICAL RESULTS Blood specimen (specimen) 05/16/2015 3:47 PM CDT Rajwinder Avery MD LAB BLOOD ORDERABLES Fin al Result HISTORICAL RESULTS documented in this encounter Visit Diagnoses Diagnosis Swelling, mass, or lump in head and neck Occlusion and stenosis of carotid artery Swelling, mass, or lump in chest documented in this encounter
--- OUTSIDE RECORDS SUMMARY | 2024-10-27 10:58 | XMS_ITS | Encounter Summary ---
Author Organization [facility] Healthcare Address [address] [place] [address] Care Team Providers Care Cotton Puller Name Role Phone Unavailable Primary Care Provider Unavailabl e Encounter Details Date Type Department Care Team (Latest Contact Info) Description 02/08/2016 12:05 PM CDT Hospital Encounter [facility] Rufus Mooney MD [address] [address] Atherosclerotic heart disease of [place] coronary artery without angina pectoris; Encounter for preprocedural laboratory examination; Encounter for preprocedural cardiovascular examination; Essential (primary) hypertension; Peripheral vascular disease (CMS/HCC); snf current use of anticoagulant Social History Tobacco Use Types Packs/Day Years Used Date Smoking Tobacco: Former Sex and Gender Information Value Date Recorded Sex Assigned at Not on file 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 Gender Identity Not on file Sexual Orientation Not on file documented as of this encounter Plan of Treatment Not on file documented as of this encounter Procedures Procedure Name Priority Date/Time Associated Diagnosis Comments CBC WITH AUTO DIFFERENTIAL Routine 02/08/2016 2:00 PM CDT APTT Routine 02/08/2016 2:00 PM CDT PROTIME-INR Routine 02/08/2016 2:00 PM CDT LIPID PANEL Routine 02/08/2016 2:00 PM CDT BASIC METABOLIC PANEL Routine 02/08/2016 2:00 PM CDT documented in this encounter Results * Lipid panel (02/08/2016 2:00 PM CDT) Pathologist [facility] Triglycerides 56 0 - 199 mg/dL Comment:12 hr pc highly lars mmended for Triglyceride Cholesterol 131 0 - 199 mg/dL Comment: Borderline: ??200-239 High Risk: ?? >239 HDL Cholesterol 58 40 - 60 mg/dL Comment: Major Risk ?< 40 mg/dL Moderate Risk ?40-60 mg/dL Negative Risk ?? > 60 mg/dL LDL Cholesterol, Calc 62 0 - 130 mg/dL Comment:High Risk > 159 mg/d L Cholesterol/HDL Ratio 2.3 Comment: Cholesterol / HDL Ratio 3.5:1 or less is desirable. Cholesterol / HDL Ratio greater than 5:1 is considered higher risk for developing heart disease. 02/08/2016 2:00 PM CDT 02/08/2016 2:51 PM CDT us Rufus Lee MD LAB BLOOD ORDERABLES Shruthi l Result [facility] HISTORICAL RESULTS * Protime-INR (02/08/2016 2:00 PM CDT) Pathologist [facility] PT 14.1 11.8 - 14.5 SECONDS INR 1.10 0.01 - 5.99 Comment: Recommended Therapeutic range for Oral Anticoagulant Therapy No anti-coagulation therapy ? Normal Range: ?0.8-1.4 Anti-coagulation therapy ? Low intensity therapy ?2.0-3.0 ? High intensity therapy ?? 2.5-3.5 Critical Value ? Greater than or equal to 6.0 Patients should be monitored for serious bleeding. ?? 02/08/2016 2:00 PM CDT 02/08/2016 2:51 PM CDT Rufus Lee MD LAB BLOOD ORDERABLES Shruthi l Result Performing Organization Address [facility] Co de Phone Number [facility] HISTORICAL RESULTS * (ABNORMAL) aPTT (02/08/2016 2:00 PM CDT) Pathologist [facility] APTT 22(L) 26 - 33 SECONDS 02/08/2016 2:00 PM CDT 02/08/2016 2:51 PM CDT Rufus Lee MD LAB BLOOD ORDERABLES Shruthi l Result Performing Organization Address [facility] de Phone Number [facility] HISTORICAL RESULTS * (ABNORMAL) CBC with auto differential (02/08/2016 2:00 PM CDT) Pathologist [facility] WBC 10.6(H) 4.6 - 10.2 x10 3/ul RBC 3.46(L) 4.11 - 5.71 x10 6/ul Hemoglobin 10.7(L) 13.0 - 17.0 g/dl Hct 32.5(L) 38.2 - 48.5 % MCV 93.9 80.0 - 97.0 fl MCH 30.9 27.0 - 31.2 pg MCHC 32.9 31.8 - 35.4 g/dl RDW 13.0 11.6 - 14.8 % Plt Count 234 124 - 400 x10 3/ul MPV 11.4(H) 7.4 - 10.4 fl Differential Method AUTOMATED DIFF --------- -- Neut % 68.1 37.0 - 85.0 % Immature Gran % 1.5 0.0 - 3.0 % Lymph % 19.5 5.0 - 45.0 % [place] % 6.0 3.0 - 15.0 % Eos % 4.4 0.0 - 7.0 % Baso % 0.5 0.0 - 2.0 % ABSOLUTE COUNTS ABSOLUTE COUNTS --------- -- Absolute Neuts (auto) 7.2 1.7 - 8.7 x10 3/ul Immature Gran # 0.2 0.0 - 0.3 x10 3/ul Absolute Lymphs (auto) 2.1 0.2 - 4.6 x10 3/ul Absolute Monos (auto) 0.6 0.1 - 1.5 x10 3/ul Absolute Eos (auto) 0.5 0.0 - 0.7 x10 3/ul Absolute Basos (auto) 0.1 0.0 - 0.2 x10 3/ul 02/08/2016 2:00 PM CDT 02/08/2016 2:51 PM CDT us Rufus Lee MD LAB BLOOD ORDERABLES Shruthi l Result [facility] HISTORICAL RESULTS * (ABNORMAL) Basic metabolic panel (02/08/2016 2:00 PM CDT) Sodium 135 135 - 145 mmol/L Potassium 4.3 3.3 - 5.1 mmol/L Chloride 102 96 - 108 mmol/L Carbon Dioxide 17(L) 22 - 32 mmol/L Anion Gap 16 7 - 16 Glucose 95 70 - 100 mg/dL BUN 28(H) 8 - 23 mg/dL Creatinine 1.7(H) 0.5 - 1.3 mg/dL Comment: NOTE: Estimated GFR (Cockroft-Gault) will NOT be calculated unless patient Height and Weight were entered. Also, Kidney Disease Stage (GFR) and Estimated GFR (Cockroft-Gault) will NOT be calculated if Creatinine result is <0.2. Kidney Disease Stage 43 mL/MIN Comment: NOTE; [...] Kidney failure or on dialysis @ Calcium 9.2 8.8 - 10.2 mg/dL 02/08/2016 3:13 PM CDT [facility] 02/08/2016 2:00 PM CDT 02/08/2016 2:51 PM CDT us Rufus Lee MD LAB BLOOD ORDERABLES Shruthi grossman Result [facility] HISTORICAL RESULTS documented in this encounter Visit Diagnoses Diagnosis Atherosclerotic heart disease of [place] coronary artery without angina pectoris Encounter for preprocedural laboratory examination Encounter for preprocedural cardiovascular examination Essential (primary) hypertension Unspecified essential hypertension Peripheral vascular disease (HCC) Unspecified peripheral vascular disease snf current use of anticoagulant documented in this encounter
--- OUTSIDE RECORDS SUMMARY | 2024-10-27 10:58 | XMS_ITS | Encounter Summary ---
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 (CMS/HCC) Social History Tobacco Use Types Packs/Day Years Used Date Smoking Tobacco: Former Sex and Gender Information Value Date Recorded Sex Assigned at Not on file Legal Sex Male 5:49 AM MANAGER PARK Gender Identity Not on file Sexual Orientation Not on file documented as of this encounter Plan of Treatment Not on file documented as of this encounter Procedures Procedure Name Priority Date/Time Associated Diagnosis Comments US ARTERIAL DOPPLER LOWER EXTREMITY BILATERAL Routine 12/08/2015 12:00 AM MANAGER PARK documented in this encounter Results * US Arterial Doppler Lower Extremity Bilateral (12/08/2015 12:00 AM MANAGER PARK) Anatomical Region Laterality Modality Vascular Bilateral Ultrasound 12/08/2015 Impressions 12/09/2015 3:27 PM MANAGER PARK ??Ankle brachial index of greater than 1 bilaterally, although this is falsely elevated. ??Waveforms are normal and triphasic throughout the right lower extremity. Triphasic throughout the left lower extremity the exception of the dorsalis pedis. ??There is much improvement when compared to the prior study of 04/20/2015. ??Pulsatile waveforms noted in the digits bilaterally. ??Clinical correlation recommended. [facility] Job: [id number] Dictated By: Solomon Martinez MD Dictated For: Solomon ??MD Juan [EOD] Narrative 12/09/2015 3:27 PM MANAGER PARK DATE OF SERVICE: 12/08/2015 REASON FOR EXAM: ??I70.212. COMMENTS ON THE RIGHT: ??Brachial pressure is 142. ??PT pressure greater than 220. ??DP pressure 132. ??Digital pressure of 86 for an NAS of 1.093 and TBI of 0.61. ??Waveforms are triphasic throughout the right lower extremity. ??Pulsatile waveform noted in the right 1st digit. COMMENTS ON THE LEFT: ??PT/DP pressure both greater than 220 with noncompressibility. ??Digital pressure 70 for an NAS of greater than 1, although it is falsely elevated and TBI of 0.49. ??Waveforms are triphasic, however, throughout the common femoral, popliteal artery, triphasic in the posterior tibial and biphasic in the dorsalis pedis. ??Pulsatile flow is noted in the left 1st digit. OVERALL Procedure Note Provider, MD Js - 03/14/2021 DATE OF SERVICE: 12/08/2015 REASON FOR EXAM: I70.212. COMMENTS ON THE RIGHT: Brachial pressure is 142. PT pressure greaterthan 220. DP pressure 132. Digital pressure of 86 for an NAS of 1.093and TBI of 0.61. Waveforms are triphasic throughout the right lowerextremity. Pulsatile waveform noted in the right 1st digit. COMMENTS ON THE LEFT: PT/DP pressure both greater than 220 withnoncompressibility. Digital pressure 70 for an NAS of greater than 1,although it is falsely elevated and TBI of 0.49. Waveforms are triphasic,however, throughout the common femoral, popliteal artery, triphasic in theposterior tibial and biphasic in the dorsalis pedis. Pulsatile flow isnoted in the left 1st digit. OVERALL IMPRESSION: Ankle brachial index of greater than 1 bilaterally,although this is falsely elevated. Waveforms are normal and triphasicthroughout the right lower extremity. Triphasic throughout the left lowerextremity the exception of the dorsalis pedis. There is much improvementwhen compared to the prior study of 04/20/2015. Pulsatile waveforms notedin the digits bilaterally. Clinical correlation recommended. 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
--- OUTSIDE RECORDS SUMMARY | 2024-10-27 10:58 | XMS_ITS | Encounter Summary ---
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 Name Role Phone Unavailable Primary Care Provider Unavailabl e Encounter Details Date Type Department Care Team (Latest Contact Info) Description 01/26/2016 10:27 AM CDT - 01/26/2016 6:44 PM CDT Hospital Encounter [facility] OP Stuart Murray MD [address] [address] Atherosclerotic heart disease of [place] coronary artery without angina pectoris; Chest pain; Shortness of breath; Abnormal result of other cardiovascular function study; Essential (primary) hypertension; Peripheral vascular disease ([facility]/HCC) Social History Tobacco Use Types Packs/Day Years Used Date Smoking Tobacco: Former Sex and Gender Information Value Date Recorded Sex Assigned at Not on file 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 Gender Identity Not on file Sexual Orientation Not on file documented as of this encounter Last Filed Vital Signs Vital Sign Reading Time Taken Comments Blood Pressure 93/58 01/25/2016 2:23 PM CDT Pulse 62 01/25/2016 2:23 PM CDT Temperature 37.6 ??C (99.7 ??F) 01/25/2016 2:23 PM CD T Respiratory Rate - - Oxygen Saturation 98% 01/25/2016 2:23 PM CDT Inhaled Oxygen Concentration - - Weight 56.4 kg (124 lb 6.4 oz) 01/25/2016 2:23 P M CDT Height 162.6 cm (5' 4 ) 01/25/2016 2:23 PM CDT Body Mass Index 21.35 01/25/2016 2:23 PM CDT documented in this encounter Plan of Treatment Not on file documented as of this encounter Procedures Procedure Name Priority Date/Time Associated Diagnosis Comments PROCEDURE - RESULT 01/26/2016 12 :00 AM CDT CARDIOLOGY REPORT 01/26/2016 12: 00 AM CDT documented in this encounter Results * PROCEDURE - RESULT (01/26/2016 12:00 AM CDT) Narrative 01/26/2016 12:00 AM CDT Ordered by an unspecified provider. us Historical Provider Final Res ult * CARDIOLOGY REPORT (01/26/2016 12:00 AM CDT) Anatomical Region Laterality Modality Other Narrative 01/26/2016 12:00 AM CDT Ordered by an unspecified provider. us Historical Provider [facility] BEULAH SNOW Final Result documented in this encounter Visit Diagnoses Diagnosis Atherosclerotic heart disease of [place] coronary artery without angina pectoris Chest pain Unspecified chest pain Shortness of breath Abnormal result of other cardiovascular function study Essential (primary) hypertension Unspecified essential hypertension Peripheral vascular disease (HCC) Unspecified peripheral vascular disease documented in this encounter
--- OUTSIDE RECORDS SUMMARY | 2024-10-27 10:58 | XMS_ITS | Encounter Summary ---
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; Coronary atherosclerosis due to calcified coronary lesion (CODE); Nonspecific low blood pressure reading; Essential (primary) hypertension; Peripheral vascular disease (CMS/HCC); Chronic kidney disease; Crohn's disease without complication ([facility]/HCC); Anemia Social History Tobacco Use Types Packs/Day Years Used Date Smoking Tobacco: Former Sex and Gender Information Value Date Recorded Sex Assigned at Not on file 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 Gender Identity Not on file Sexual Orientation Not on file documented as of this encounter Last Filed Vital Signs Vital Sign Reading Time Taken Comments Blood Pressure 101/52 02/17/2016 10:02 AM CDT Pulse 76 02/17/2016 10:02 AM CDT Temperature 37.1 ??C (98.8 ??F) 02/17/2016 1 0:02 AM CDT Respiratory Rate - - Oxygen Saturation 100% 02/17/2016 10: 02 AM CDT Inhaled Oxygen Concentration - - Weight 61.2 kg (134 lb 14.7 oz) 04/22/2 016 10:02 AM CDT Height 162.6 cm (5' 4 ) 02/17/2016 10:0 2 AM CDT Body Mass Index 23.16 02/17/2016 10:02 AM CDT documented in this encounter Plan of Treatment Not on file documented as of this encounter Procedures Procedure Name Priority Date/Time Associated Diagnosis Comments CBC WITH AUTO DIFFERENTIAL Routine 02/17/2016 5:14 AM CDT BASIC METABOLIC PANEL Routine 02/17/2016 5:14 AM CDT CARDIOLOGY REPORT 02/17/2016 12: 00 AM CDT HEMOGLOBIN AND HEMATOCRIT Routine 02/16/2016 10:08 PM CDT CBC WITH AUTO DIFFERENTIAL Routine 02/16/2016 2:10 PM CDT APTT Routine 02/16/2016 2:10 PM CDT PROTIME-INR Routine 02/16/2016 2:10 PM CDT LIPID PANEL Routine 02/16/2016 2:10 PM CDT BASIC METABOLIC PANEL Routine 02/16/2016 2:10 PM CDT PROCEDURE - RESULT 02/16/2016 12 :00 AM CDT CARDIOLOGY REPORT 02/16/2016 12: 00 AM CDT TRANSTHORACIC ECHO (TTE) COMPLETE W DOPPLER/CF Routine 02/16/2016 12:[address] ABDOMEN PELVIS WO CONTRAST Routine 02/16/2016 12:00 AM CDT documented in this encounter Results * (ABNORMAL) CBC with auto differential (02/17/2016 5:14 AM CDT) WBC 8.7 4.6 - 10.2 x10 3/ul 02/17/2016 5:55 AM CDT [facility] HISTORICAL RESULTS RBC 2.48(L) 4.11 - 5.71 x10 6/ul 02/17/2016 5:55 AM CDT [facility] HISTORICAL RESULTS Comment:Results reviewed Hemoglobin 7.7(L) 13.0 - 17.0 g/dl 02/17/2016 5:55 AM CDT [facility] HISTORICAL RESULTS Hct 24.3(L) 38.2 - 48.5 % 02/17/2016 5:55 AM CDT [facility] HISTORICAL RESULTS MCV 98.0(H) 80.0 - 97.0 fl 02/17/2016 5:55 AM CDT [facility] HISTORICAL RESULTS MCH 31.0 27.0 - 31.2 pg 02/17/2016 5:55 AM CDT [facility] HISTORICAL RESULTS MCHC 31.7(L) 31.8 - 35.4 g/dl 02/17/2016 5:55 AM CDT [facility] HISTORICAL RESULTS RDW 13.0 11.6 - 14.8 % 02/17/2016 5:55 AM CDT [facility] HISTORICAL RESULTS Plt Count 177 124 - 400 x10 3/ul 02/17/2016 5:55 AM CDT [facility] HISTORICAL RESULTS MPV 11.4(H) 7.4 - 10.4 fl 02/17/2016 5:55 AM T [facility] HISTORICAL RESULTS Differential Method AUTOMATED DIFF --------- -- 02/17/2016 5:55 AM [employer] [facility] HISTORICAL RESULTS Neut % 71.5 37.0 - 85.0 % 02/17/2016 5:55 AM CDT [facility] [employer] [facility] H[facility]OR[facility] RESULTS Immature Gran % 0.8 0.0 - 3.0 % 02/17/2016 5:55 AM CDT [facility] HISTORICAL RESULTS Lymph % 17.9 5.0 - 45.0 % 02/17/2016 5:55 AM CDT [facility] [employer] [facility] HISTORICAL RESULTS Aurora % 7.4 3.0 - 15.0 % 02/17/2016 5:55 AM CDT [facility] HISTORICAL RESULTS Eos % 2.1 0.0 - 7.0 % 02/17/2016 5:55 AM CDT [facility] HISTORICAL RESULTS Baso % 0.3 0.0 - 2.0 % 02/17/2016 5:[address] [facility] HISTORICAL RESULTS ABSOLUTE COUNTS ABSOLUTE COUNTS --------- -- 02/17/2016 5:55 AM CDT [facility] HISTORICAL RESULTS Absolute Neuts (auto) 6.2 1.7 - 8.7 x10 3/ul 02/17/2016 5:55 AM T [facility] HISTORICAL RESULTS Immature Gran # 0.1 0.0 - 0.3 x10 3/ul 02/17/2016 5:55 AM CDT [facility] HISTORICAL RESULTS Absolute Lymphs (auto) 1.6 0.2 - 4.6 x10 3/ul 02/17/2016 5:55 AM T [facility] HISTORICAL RESULTS Absolute Monos (auto) 0.6 0.1 - 1.5 x10 3/ul 02/17/2016 5:55 AM T [facility] HISTORICAL RESULTS Absolute Eos (auto) 0.2 0.0 - 0.7 x10 3/ul 02/17/2016 5:55 AM T [facility] HISTORICAL RESULTS Absolute Basos (auto) 0.0 0.0 - 0.2 x10 3/ul 02/17/2016 5:[address] [facility] HISTORICAL RESULTS 02/17/2016 5:14 AM CDT 02/17/2016 5:34 AM CDT us Rufus Lee MD LAB BLOOD ORDERABLES Shruthi l Result [facility] HISTORICAL RESULTS * (ABNORMAL) Basic metabolic panel (02/17/2016 5:14 AM CDT) Sodium 138 135 - 145 mmol/L 02/17/2016 6:22 AM T [facility] HISTORICAL RESULTS Potassium 4.3 3.3 - 5.1 mmol/L 02/17/2016 6:22 AM T [facility] HISTORICAL RESULTS Chloride 108 96 - 108 mmol/L 02/17/2016 6:23 AM T [facility] HISTORICAL RESULTS Carbon Dioxide 13(L) 22 - 32 mmol/L 02/17/2016 6:23 AM T [facility] HISTORICAL RESULTS Anion Gap 17(H) 7 - 16 02/17/2016 6:[address] [facility] HISTORICAL RESULTS Glucose 77 70 - 100 mg/dL 02/17/2016 6:[address] [facility] HISTORICAL RESULTS BUN 20 8 - 23 mg/dL 02/17/2016 6:[address] [facility] HISTORICAL RESULTS Creatinine 1.3 0.5 - 1.3 mg/dL 02/17/2016 6:[address] [facility] HISTORICAL RESULTS Comment: NOTE: Estimated GFR (Cockroft-Gault) will NOT be calculated unless patient Height and Weight were entered. Also, Kidney Disease Stage (GFR) and Estimated GFR (Cockroft-Gault) will NOT be calculated if Creatinine result is <0.2. Kidney Disease Stage 59 mL/MIN 02/17/2016 6:[address] [facility] HISTORICAL RESULTS [...] or on dialysis @ Est GFR (Cockcroft-G) 47 ml/MIN 02/17/2016 6:23 AM [facility] HISTORICAL RESULTS Calcium 8.1(L) 8.8 - 10.2 mg/dL 02/17/2016 6:[address] [facility] HISTORICAL RESULTS 02/17/2016 5:14 AM T 02/17/2016 5:34 AM CDT Rufus Lee MD LAB BLOOD ORDERABLES Shruthi l Result Performing Organization Address [facility] Co de Phone Number [facility] HISTORICAL RESULTS * CARDIOLOGY REPORT (02/17/2016 12:00 AM CDT) Anatomical Region Laterality Modality Other Narrative 02/17/2016 12:00 AM CDT Ordered by an unspecified provider. Historical Provider [facility] BEULAH SNOW Final Result * (ABNORMAL) Hemoglobin and hematocrit (02/16/2016 10:08 PM CDT) Hemoglobin 7.7(L) 13.0 - 17.0 g/dl 02/16/2016 10:23 PM CDT [facility] HISTORICAL RESULTS Comment:Results reviewed Hct 23.9(L) 38.2 - 48.5 % 02/16/2016 10:23 PM CDT [facility] HISTORICAL RESULTS 02/16/2016 10:0 8 PM CDT 02/16/2016 10:19 PM CDT Narrative [facility] HISTORICAL RESULTS - 02/16/2016 10:23 PM CDT Rufus Lee MD LAB BLOOD ORDERABLES Shruthi l Result Performing Organization Address [facility] Co de Phone Number [facility] HISTORICAL RESULTS * Protime-INR (02/16/2016 2:10 PM CDT) PT 13.3 11.8 - 14.5 SECONDS 02/16/2016 2:27 PM CDT [facility] HISTORICAL RESULTS INR 1.02 0.01 - 5.99 02/16/2016 2:27 PM CDT [facility] HISTORICAL RESULTS Comment: Recommended Therapeutic range for Oral Anticoagulant Therapy No anti-coagulation therapy ? Normal Range: ?0.8-1.4 Anti-coagulation therapy ? Low intensity therapy ?2.0-3.0 ? High intensity therapy ?? 2.5-3.5 Critical Value ? Greater than or equal to 6.0 Patients should be monitored for serious bleeding. ?? 02/16/2016 2:10 PM CDT 02/16/2016 2:14 PM CDT Rufus Lee MD LAB BLOOD ORDERABLES Shruthi l Result Performing Organization Address [facility] de Phone Number [facility] HISTORICAL RESULTS * aPTT (02/16/2016 2:10 PM CDT) APTT 29 26 - 33 SECONDS 02/16/2016 2:27 PM CDT [facility] HISTORICAL RESULTS 02/16/2016 2:10 PM CDT 02/16/2016 2:14 PM CDT Rufus Lee MD LAB BLOOD ORDERABLES Shruthi l Result Performing Organization Address [facility] Phone Number [facility] HISTORICAL RESULTS * Lipid panel (02/16/2016 2:10 PM CDT) Triglycerides 59 0 - 199 mg/dL 02/16/2016 2:39 PM T [facility] HISTORICAL RESULTS Comment:12 hr pc highly lars mmended for Triglyceride Cholesterol 138 0 - 199 mg/dL 02/16/2016 2:[address] [facility] HISTORICAL RESULTS Comment: Borderline: ??200-239 High Risk: ?? >239 HDL Cholesterol 60 40 - 60 mg/dL 02/16/2016 2:[address] [facility] HISTORICAL RESULTS Comment: Major Risk ?< 40 mg/dL Moderate Risk ?40-60 mg/dL Negative Risk ?? > 60 mg/dL LDL Cholesterol, Calc 66 0 - 130 mg/dL 02/16/2016 2:[address] [facility] HISTORICAL RESULTS Comment:High Risk > 159 mg/d L Cholesterol/HDL Ratio 2.3 02/16/2016 2:[address] [facility] HISTORICAL RESULTS Comment: Cholesterol / HDL Ratio 3.5:1 or less is desirable. Cholesterol / HDL Ratio greater than 5:1 is considered higher risk for developing heart disease. 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 LAB BLOOD ORDERABLES Shruthi l Result [facility] HISTORICAL RESULTS * (ABNORMAL) CBC with auto differential (02/16/2016 2:10 PM CDT) [facility] WBC 7.5 4.6 - 10.2 x10 3/ul 02/16/2016 2:19 PM CDT [facility] HISTORICAL RESULTS RBC 3.15(L) 4.11 - 5.71 x10 6/ul 02/16/2016 2:19 PM CDT [facility] HISTORICAL RESULTS Hemoglobin 9.9(L) 13.0 - 17.0 g/dl 02/16/2016 2:19 PM CDT [facility] HISTORICAL RESULTS Hct 29.9(L) 38.2 - 48.5 % 02/16/2016 2:19 PM CDT [facility] HISTORICAL RESULTS MCV 94.9 80.0 - 97.0 fl 02/16/2016 2:19 PM CDT [facility] HISTORICAL RESULTS MCH 31.4(H) 27.0 - 31.2 pg 02/16/2016 2:19 PM CDT [facility] HISTORICAL RESULTS MCHC 33.1 31.8 - 35.4 g/dl 02/16/2016 2:19 PM CDT [facility] HISTORICAL RESULTS RDW 12.7 11.6 - 14.8 % 02/16/2016 2:19 PM CDT [facility] HISTORICAL RESULTS Plt Count 204 124 - 400 x10 3/ul 02/16/2016 2:19 PM CDT [facility] HISTORICAL RESULTS MPV 10.9(H) 7.4 - 10.4 fl 02/16/2016 2:19 PM CDT [facility] HISTORICAL RESULTS Differential Method AUTOMATED DIFF --------- -- 02/16/2016 2:19 PM CDT [facility] HISTORICAL RESULTS Neut % 61.7 37.0 - 85.0 % 02/16/2016 2:19 PM CDT [facility] HISTORICAL RESULTS Immature Gran % 1.2 0.0 - 3.0 % 02/16/2016 2:19 PM T [facility] HISTORICAL RESULTS Lymph % 24.6 5.0 - 45.0 % 02/16/2016 2:[address] [facility] HISTORICAL RESULTS Aurora % 6.8 3.0 - 15.0 % 02/16/2016 2:19 PM T [facility] HISTORICAL RESULTS Eos % 5.2 0.0 - 7.0 % 02/16/2016 2:19 PM T [facility] HISTORICAL RESULTS Baso % 0.5 0.0 - 2.0 % 02/16/2016 2:[address] [facility] HISTORICAL RESULTS ABSOLUTE COUNTS ABSOLUTE COUNTS --------- -- 02/16/2016 2:[address] [facility] HISTORICAL RESULTS Absolute Neuts (auto) 4.6 1.7 - 8.7 x10 3/ul 02/16/2016 2:[address] [facility] HISTORICAL RESULTS Immature Gran # 0.1 0.0 - 0.3 x10 3/ul 02/16/2016 2:[address] [facility] HISTORICAL RESULTS Absolute Lymphs (auto) 1.9 0.2 - 4.6 x10 3/ul 02/16/2016 2:[address] [facility] HISTORICAL RESULTS Absolute Monos (auto) 0.5 0.1 - 1.5 x10 3/ul 02/16/2016 2:[address] [facility] HISTORICAL RESULTS Absolute Eos (auto) 0.4 0.0 - 0.7 x10 3/ul 02/16/2016 2:19 PM T [facility] HISTORICAL RESULTS Absolute Basos (auto) 0.0 0.0 - 0.2 x10 3/ul 02/16/2016 2:[address] [facility] HISTORICAL RESULTS 02/16/2016 2:10 PM CDT 02/16/2016 2:14 PM CDT us Rufus Lee MD LAB BLOOD ORDERABLES Shruthi l Result [facility] HISTORICAL RESULTS * (ABNORMAL) Basic metabolic panel (02/16/2016 2:10 PM CDT) [facility] Sodium 137 135 - 145 mmol/L 02/16/2016 2:[address] [facility] HISTORICAL RESULTS Potassium 4.3 3.3 - 5.1 mmol/L 02/16/2016 2:[address] [facility] HISTORICAL RESULTS Chloride 107 96 - 108 mmol/L 02/16/2016 2:[address] [facility] HISTORICAL RESULTS Carbon Dioxide 17(L) 22 - 32 mmol/L 02/16/2016 2:[address] [facility] HISTORICAL RESULTS Anion Gap 13 7 - 16 02/16/2016 2:[address] [facility] HISTORICAL RESULTS Glucose 90 70 - 100 mg/dL 02/16/2016 2:[address] [facility] HISTORICAL RESULTS BUN 25(H) 8 - 23 mg/dL 02/16/2016 2:[address] [facility] HISTORICAL RESULTS Creatinine 1.4(H) 0.5 - 1.3 mg/dL 02/16/2016 2:[address] [facility] HISTORICAL RESULTS Comment: NOTE: Estimated GFR (Cockroft-Gault) will NOT be calculated unless patient Height and Weight were entered. Also, Kidney Disease Stage (GFR) and Estimated GFR (Cockroft-Gault) will NOT be calculated if Creatinine result is <0.2. Kidney Disease Stage 54 mL/MIN 02/16/2016 2:[address] 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 Historical Provider Final Res ult * CARDIOLOGY REPORT (02/16/2016 12:00 AM CDT) Anatomical Region Laterality Modality Other Narrative 02/16/2016 12:00 AM CDT Ordered by an unspecified provider. Result [facility] Historical Provider [facility] BEULAH SNOW Final Result * Transthoracic Echo Complete W Doppler/CF (02/16/2016 12:00 AM CDT) Anatomical Region Laterality Modality Ultrasound 02/16/2016 Narrative 02/16/2016 11:33 PM CDT Results viewable in EMR, Cardiovascular [EOD] Procedure Note Provider, MD Js - 03/14/2021 Results viewable in EMR, Cardiovascular [EOD] Rufus Lee MD CV ECHO PROCEDURES Final Result * CT Abdomen Pelvis WO Contrast (02/16/2016 12:00 AM CDT) Anatomical Region Laterality Modality Body N/A Computed Tomogra phy 02/16/2016 Impressions 02/16/2016 11:27 PM CDT ?? No CT evidence of retroperitoneal hematoma. ??Fat stranding at the right groin with catheters, described above. Focal distal esophageal wall thickening, nonspecific. ??Follow-up is recommended. Prominence of the proximal colon with gas/fluid levels, indeterminate. ?? Follow-up is recommended as a subtle stricture is a possibility. ??No definitive obstruction. Automated exposure control was used as a dose optimization technique for this examination. THIS IS AN ELECTRONICALLY VERIFIED REPORT 02/16/2016 11:24 PM: ??Katie Mills M.D. ?? Katie Mills M.D. JS:ulisses 11:24 PM 11:24 PM SHP [EOD] Narrative 02/16/2016 11:27 PM CDT EXAMINATION: ??CT ABDOMEN AND PELVIS WITHOUT INTRAVENOUS CONTRAST HISTORY: ??Rule out retroperitoneal bleeding; cardiac catheterization earlier this evening COMPARISON: ??None available TECHNIQUE: ??Axial computed tomography of the abdomen and pelvis without intravenous contrast administration per standard protocol; coronal and sagittal reformatted images FINDINGS: ?? The heart size is unremarkable. There is no pericardial fluid. Extensive atherosclerotic calcifications are present within the mediastinum. ??There is distal esophageal wall thickening suggested at axial image 11, nonspecific. ?? Mild COPD and linear scar/atelectatic change are noted at the lung bases. Hyperdense material within the gallbladder lumen could be vicarious excretion of contrast material versus multiple tiny gallstones. ??There is high density contrast within the renal collecting systems bilaterally. ??There is a cystic structure at the upper aspect of the liver. ??Noncontrast evaluation of the spleen, pancreas, adrenal glands and biliary tree is grossly unremarkable. ?? The left kidney is largely unremarkable. ??There is a focal hypodensity which is indeterminate at the right renal mid pole. The stomach is unremarkable as imaged. ??The small bowel is unremarkable in course and caliber. ??There is gas and stool throughout the colon which seems somewhat prominent proximally. ??Gas/fluid levels are present at the proximal colon. ??There is postoperative change at the cecum. ??There is no free intraperitoneal gas or dependent free pelvic fluid. The urinary bladder is distended with intravenous contrast material within its lumen. ??There is mass effect at the bladder base with prominence of the prostate. ??Pelvic phleboliths are present bilaterally. ??There is no obvious lymphadenopathy. Atherosclerotic calcifications are present throughout the major arterial vasculature. ??There is a right femoral arterial catheter which ends within the right common iliac artery. ??There is a right femoral venous catheter which is also identified. ??There is fat stranding at the right groin at the patient's likely entry site for cardiac catheterization today. ??There is no definitive evidence of retroperitoneal hematoma associated with this catheterization. Bone windows reveal no acute fracture or suspicious lytic/blastic lesion. The bones are osteopenic. ??Degenerative joint disease is noted. ??There is postoperative change at the proximal left femur. Procedure Note Provider, MD Js - 03/14/2021 EXAMINATION: CT ABDOMEN AND PELVIS WITHOUT INTRAVENOUS CONTRAST HISTORY: Rule out retroperitoneal bleeding; cardiac catheterizationearlier this evening COMPARISON: None available TECHNIQUE: Axial computed tomography of the abdomen and pelvis without intravenous contrast administration per standard protocol; coronal and sagittal reformatted images FINDINGS: The heart size is unremarkable. There is no pericardial fluid. Extensive atherosclerotic calcifications are present within the mediastinum. Thereis distal esophageal wall thickening suggested at axial image 11,nonspecific. Mild COPD and linear scar/atelectatic change are noted at the lungbases. Hyperdense material within the gallbladder lumen could be vicariousexcretion of contrast material versus multiple tiny gallstones. There is highdensity contrast within the renal collecting systems bilaterally. There is acystic structure at the upper aspect of the liver. Noncontrast evaluation of the spleen, pancreas, adrenal glands and biliary tree is grossly unremarkable. The left kidney is largely unremarkable. There is a focal hypodensitywhich is indeterminate at the right renal mid pole. The stomach is unremarkable as imaged. The small bowel is unremarkable in course and caliber. There is gas and stool throughout the colon whichseems somewhat prominent proximally. Gas/fluid levels are present at theproximal colon. There is postoperative change at the cecum. There is no free intraperitoneal gas or dependent free pelvic fluid. The urinary bladder is distended with intravenous contrast material withinits lumen. There is mass effect at the bladder base with prominence of the prostate. Pelvic phleboliths are present bilaterally. There is noobvious lymphadenopathy. Atherosclerotic calcifications are present throughout the major arterial vasculature. There is a right femoral arterial catheter which ends withinthe right common iliac artery. There is a right femoral venous catheter whichis also identified. There is fat stranding at the right groin at thepatient's likely entry site for cardiac catheterization today. There is nodefinitive evidence of retroperitoneal hematoma associated with this catheterization. Bone windows reveal no acute fracture or suspicious lytic/blastic lesion.The bones are osteopenic. Degenerative joint disease is noted. There is postoperative change at the proximal left femur. IMPRESSION: No CT evidence of retroperitoneal hematoma. Fat stranding at the rightgroin with catheters, described above. Focal distal esophageal wall thickening, nonspecific. Follow-up is recommended. Prominence of the proximal colon with gas/fluid levels, indeterminate. Follow-up is recommended as a subtle stricture is a possibility. No definitive obstruction. Automated exposure control was used as a dose optimization technique forthis examination. THIS IS AN ELECTRONICALLY VERIFIED REPORT 02/16/2016 11:24 PM: Katie Mills M.D. Katie Mills M.D. 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
--- OUTSIDE RECORDS SUMMARY | 2024-10-27 10:58 | XMS_ITS | Encounter Summary ---
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); Atherosclerosis of other specified arteries Social History Tobacco Use Types Packs/Day Years Used Date Smoking Tobacco: Never Assessed Sex and Gender Information Value Date Recorded Sex Assigned at Not on file 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 Gender Identity Not on file Sexual Orientation Not on file documented as of this encounter Last Filed Vital Signs Vital Sign Reading Time Taken Comments Blood Pressure 98/54 05/04/2015 2:54 PM CDT Pulse 71 05/04/2015 2:54 PM CDT Temperature 36.5 ??C (97.7 ??F) 05/04/2015 2:54 PM CD T Respiratory Rate - - Oxygen Saturation 100% 05/04/2015 2:54 PM CDT Inhaled Oxygen Concentration - - Weight 47.6 kg (105 lb) 05/04/2015 2:54 PM CDT Height 162.6 cm (5' 4 ) 05/04/2015 2:54 PM CDT Body Mass Index 18.02 05/04/2015 2:54 PM CDT documented in this encounter Plan of Treatment Not on file documented as of this encounter Procedures Procedure Name Priority Date/Time Associated Diagnosis Comments APTT Routine 05/04/2015 7:42 AM CDT PROTIME-INR Routine 05/04/2015 7:42 AM CDT documented in this encounter Results * (ABNORMAL) Protime-INR (05/04/2015 7:42 AM CDT) PT 12.0(L) 12.2 - 14.8 SECONDS 05/04/2015 8:13 AM CDT [facility] HISTORICAL RESULTS INR 0.86 0.01 - 5.99 05/04/2015 8:13 AM CDT [facility] HISTORICAL RESULTS Comment: Recommended Therapeutic range for Oral Anticoagulant Therapy No anti-coagulation therapy ? Normal Range: ?0.8-1.4 Anti-coagulation therapy ? Low intensity therapy ?2.0-3.0 ? High intensity therapy ?? 2.5-3.5 Critical Value ? Greater than or equal to 6.0 Patients should be monitored for serious bleeding. ?? 05/04/2015 7:42 AM CDT 05/04/2015 7:52 AM CDT Solomon Martinez MD LAB BLOOD ORDERABLES Final Result Performing Organization Address City/State/[facility] Co de Phone Number [facility] HISTORICAL RESULTS * aPTT (05/04/2015 7:42 AM CDT) APTT 28 24 - 38 SECONDS 05/04/2015 8:14 AM CDT [facility] HISTORICAL RESULTS 05/04/2015 7:42 AM CDT 05/04/2015 7:52 AM CDT Solomon Martinez MD LAB BLOOD ORDERABLES Final Result [facility] HISTORICAL RESULTS documented in this encounter Visit Diagnoses Diagnosis Atherosclerosis of aorta (HCC) Atherosclerosis of aorta Atherosclerosis of [place] arteries of extremity with intermittent claudication (HCC) Chronic total occlusion of artery of the extremities (HCC) Chronic total occlusion of artery of the extremities Atherosclerosis of other specified arteries documented in this encounter
--- OUTSIDE RECORDS SUMMARY | 2024-10-27 10:58 | XMS_ITS | Encounter Summary ---
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 Name Role Phone Unavailable Primary Care Provider Unavailabl e Encounter Details Date Type Department Care Team (Latest Contact Info) Description 01/25/2016 1:35 PM CDT Hospital Encounter [facility] Stuart Bardales MD [address] [address] Atherosclerotic heart disease of [place] coronary artery without angina pectoris; Encounter for preprocedural cardiovascular examination; Encounter for preprocedural laboratory examination Social History Tobacco Use Types Packs/Day Years Used Date Smoking Tobacco: Former Sex and Gender Information Value Date Recorded Sex Assigned at Not on file 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 Gender Identity Not on file Sexual Orientation Not on file documented as of this encounter Plan of Treatment Not on file documented as of this encounter Procedures Procedure Name Priority Date/Time Associated Diagnosis Comments CBC WITH AUTO DIFFERENTIAL Routine 01/25/2016 2:58 PM CDT APTT Routine 01/25/2016 2:58 PM CDT PROTIME-INR Routine 01/25/2016 2:58 PM CDT BASIC METABOLIC PANEL Routine 01/25/2016 2:58 PM CDT documented in this encounter Results * Protime-INR (01/25/2016 2:58 PM CDT) [facility] PT 13.5 11.8 - 14.5 SECONDS 01/25/2016 3:50 PM CDT [facility] HISTORICAL RESULTS Comment:New Reference Range in use at [facility] 12/01/2015 INR 1.04 0.01 - 5.99 01/25/2016 3:50 PM CDT [facility] HISTORICAL RESULTS Comment: Recommended Therapeutic range for Oral Anticoagulant Therapy No anti-coagulation therapy ? Normal Range: ?0.8-1.4 Anti-coagulation therapy ? Low intensity therapy ?2.0-3.0 ? High intensity therapy ?? 2.5-3.5 Critical Value ? Greater than or equal to 6.0 Patients should be monitored for serious bleeding. ?? 01/25/2016 2:58 PM CDT 01/25/2016 3:31 PM CDT Stuart Murray MD LAB BLOOD ORDERABLES Final Re sult Performing Organization Address [facility] de Phone Number [facility] HISTORICAL RESULTS * aPTT (01/25/2016 2:58 PM CDT) [facility] APTT 27 26 - 33 SECONDS 01/25/2016 3:52 PM CDT [facility] HISTORICAL RESULTS Comment:New Reference Range in use at [facility] 12/01/2015 01/25/2016 2:58 PM CDT 01/25/2016 3:31 PM CDT Stuart Murray MD LAB BLOOD ORDERABLES Final Re sult Performing Organization Address [facility] Co de Phone Number [facility] HISTORICAL RESULTS * (ABNORMAL) CBC with auto differential (01/25/2016 2:58 PM CDT) [facility] WBC 8.9 4.6 - 10.2 x10 3/ul 01/25/2016 4:17 PM CDT [facility] HISTORICAL RESULTS RBC 3.73(L) 4.11 - 5.71 x10 6/ul 01/25/2016 4:17 PM CDT [facility] HISTORICAL RESULTS Hemoglobin 11.4(L) 13.0 - 17.0 g/dl 01/25/2016 4:17 PM CDT [facility] HISTORICAL RESULTS Hct 34.5(L) 38.2 - 48.5 % 01/25/2016 4:17 PM CDT [facility] HISTORICAL RESULTS MCV 92.5 80.0 - 97.0 fl MCH 30.6 27.0 - 31.2 pg 01/25/2016 4:17 PM CDT [facility] HISTORICAL RESULTS MCHC 33.0 31.8 - 35.4 g/dl RDW 13.2 11.6 - 14.8 % 01/25/2016 4:17 PM CDT [facility] HISTORICAL RESULTS Plt Count 174 124 - 400 x10 3/ul MPV 11.4(H) 7.4 - 10.4 fl Differential Method AUTOMATED DIFF --------- -- Neut % 68.1 37.0 - 85.0 % 01/25/2016 4:17 PM CDT [facility] HIST[facility]ICAL RESULTS Immature Gran % 0.6 0.0 - 3.0 % Lymph % 19.1 5.0 - 45.0 % 01/25/2016 4:17 PM CDT [facility] HISTORICAL RESULTS Schoolcraft % 6.6 3.0 - 15.0 % Eos % 5.0 0.0 - 7.0 % 01/25/2016 4:17 PM CDT [facility] H[facility] RESULTS Baso % 0.6 0.0 - 2.0 % ABSOLUTE COUNTS ABSOLUTE COUNTS --------- -- 01/25/2016 4:17 PM T [facility] HISTORICAL RESULTS Absolute Neuts (auto) 6.1 1.7 - 8.7 x10 3/ul 01/25/2016 4:17 PM T [facility] HISTORICAL RESULTS Immature Gran # 0.1 0.0 - 0.3 x10 3/ul 01/25/2016 4:17 PM T [facility] HISTORICAL RESULTS Absolute Lymphs (auto) 1.7 0.2 - 4.6 x10 3/ul 01/25/2016 4:17 PM CDT [facility] HISTORICAL RESULTS Absolute Monos (auto) 0.6 0.1 - 1.5 x10 3/ul 01/25/2016 4:17 PM T [facility] HISTORICAL RESULTS Absolute Eos (auto) 0.5 0.0 - 0.7 x10 3/ul 01/25/2016 4:17 PM T [facility] HISTORICAL RESULTS Absolute Basos (auto) 0.1 0.0 - 0.2 x10 3/ul 01/25/2016 2:58 PM CDT 01/25/2016 3:31 PM CDT Stuart Murray MD LAB BLOOD ORDERABLES Final Re sult [facility] HISTORICAL RESULTS * (ABNORMAL) Basic metabolic panel (01/25/2016 2:58 PM CDT) Sodium 135 135 - 145 mmol/L 01/25/2016 4:03 PM T [facility] HISTORICAL RESULTS Potassium 4.1 3.3 - 5.1 mmol/L Chloride 107 96 - 108 mmol/L Carbon Dioxide 14(L) 22 - 32 mmol/L 01/25/2016 4:03 PM T [facility] HISTORICAL RESULTS Anion Gap 14 7 - 16 01/25/2016 4:03 PM T [facility] HISTORICAL RESULTS Glucose 90 70 - 100 mg/dL 01/25/2016 4:03 PM T [facility] HISTORICAL RESULTS BUN 34(H) 8 - 23 mg/dL Creatinine 1.7(H) 0.5 - 1.3 mg/dL 01/25/2016 4:03 PM T [facility] HISTORICAL RESULTS Comment: NOTE: Estimated GFR ([place]ro[place]-Gault) [...] Kidney failure or on dialysis @ Calcium 9.0 8.8 - 10.2 mg/dL 01/25/2016 4:03 PM T [facility] HISTORICAL RESULTS 01/25/2016 2:58 PM CDT 01/25/2016 3:31 PM CDT us Stuart Murray MD LAB BLOOD ORDERABLES Final Re sult [facility] HISTORICAL RESULTS documented in this encounter Visit Diagnoses Diagnosis Atherosclerotic heart disease of [place] coronary artery without angina pectoris Encounter for preprocedural cardiovascular examination Encounter for preprocedural laboratory examination documented in this encounter
--- OUTSIDE RECORDS SUMMARY | 2024-10-27 10:58 | XMS_ITS | Encounter Summary ---
Author Organization [facility] Healthcare Address [address] [place] [address] Care Team Providers Care Winderman Name Role Phone Unavailable Primary Care Provider Unavailabl e Encounter Details Date Type Department Care Team (Latest Contact Info) Description 04/20/2015 3:40 PM CDT Hospital Encounter 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 Gender Identity Not on file Sexual Orientation Not on file documented as of this encounter Plan of Treatment Not on file documented as of this encounter Procedures Procedure Name Priority Date/Time Associated Diagnosis Comments US ARTERIAL DOPPLER LOWER EXTREMITY BILATERAL Routine 04/20/2015 12:00 AM CDT documented in this encounter Results * US Arterial Doppler Lower Extremity Bilateral (04/20/2015 12:00 AM CDT) Anatomical Region Laterality Modality Vascular Bilateral Ultrasound 04/20/2015 Impressions 04/25/2015 7:38 AM CDT ??NAS of greater than 1 bilaterally, likely falsely elevated secondary to vessel noncompressibility. ??Digital brachial indices are decreased bilaterally. ??Waveforms suggest likely SFA and possible tibial level disease on the left and possibly very mild tibial disease on the right. ??Clinical correlation recommended. NTS Job: [id number] Dictated By: Solomon Martinez MD Dictated For: Solomon ??MD Juan [EOD] Narrative 04/25/2015 7:38 AM CDT DATE OF SERVICE: 04/20/2015 REASON FOR EXAM: ??440.21 FINDINGS: ??Brachial pressure is 116. ??PTT pressure greater than 220. ??Digital pressure is 60. ??NAS is 1. ??DBI is 0.52. ??Waveforms are normal and triphasic throughout the right common femoral and popliteal artery, biphasic in the posterior tibialis and dorsalis pedis pulsatile flow was noted in the right 1st digit. COMMENTS ON THE LEFT: ??PT and DP pressures greater than 220/60, digital pressure is 44 for an NAS of 1, DBI is 0.38. ??Waveforms are triphasic at the common femoral blunted and monophasic in the popliteal, posterior tibialis to dorsalis pedis. ??Pulsatile flow was still noted in the 1st digit. OVERALL Procedure Note Provider, MD Js - 03/14/2021 DATE OF SERVICE: 04/20/2015 REASON FOR EXAM: 440.21 FINDINGS: Brachial pressure is 116. PTT pressure greater than 220.Digital pressure is 60. NAS is 1. DBI is 0.52. Waveforms are normal andtriphasic throughout the right common femoral and popliteal artery,biphasic in the posterior tibialis and dorsalis pedis pulsatile flow wasnoted in the right 1st digit. COMMENTS ON THE LEFT: PT and DP pressures greater than 220/60, digitalpressure is 44 for an NAS of 1, DBI is 0.38. Waveforms are triphasic atthe common femoral blunted and monophasic in the popliteal, posteriortibialis to dorsalis pedis. Pulsatile flow was still noted in the 1stdigit. OVERALL IMPRESSION: NAS of greater than 1 bilaterally, likely falselyelevated secondary to vessel noncompressibility. Digital brachial indicesare decreased bilaterally. Waveforms suggest likely SFA and possibletibial level disease on the left and possibly very mild tibial disease onthe right. Clinical correlation recommended. 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
== END 2024-10-20 08:47 | disposition home or self-care (01) ==
PROVIDERS: PCP Internal Medicine; Visit Provider Internal Medicine
DX: M16.11 Unilateral primary osteoarthritis, right hip (principal)
CPT/HCPCS: 73502